=== PATIENT | male | born 1995 | race Hispanic/Latino ===

== ENCOUNTER 2022-04-25 16:26 | Emergency (ER) | payer BC, OTHER ==
--- OUTSIDE RECORDS SUMMARY | 2022-04-25 16:31 | XMS REPORT | Continuity of Care Document ---
:1995 Author Organization [facility] t Address [address] [place] [address] Care Team Providers Name Role Phone Joanie Perry MD Primary Care Physician RADHA MARQUEZ Attending Clinician Unavailable SHI ANAYA Attending Clinician Unavailable Vida Romero MD Attending Clinician Zuniga_F Attending Clinician Unavailable Rich Salgado Attending Clinician Duarte_Sundar Attending Clinician Unavailable Apolinar RN, Mallory Attending Clinician Unavailable Eloina RICHARDSON, Alfreda Klein Attending Clinician Giovany CERVANTESPAnna Attending Clinician Graeme CONTRACTS ANALYST, Micaela Santa Attending Clinician Parish Chamorro MD Attending Clinician Yoel RICHARDSON, Chloe Smith Attending Clinician SANDIE_HERNÁN_DOREEN Attending Clinician Unavailable Koudela_A Attending Clinician Unavailable Zuniga_S Attending Clinician Unavailable Rajcameron_P Attending Clinician Unavailable Zungracya_F Admitting Clinician Unavailable Duarte_Sundar Admitting Clinician Unavailable VIDA ROMERO Admitting Clinician Unavailable CHLOE DIALLO Admitting Clinician Unavailable JONA Admitting Clinician Unavailable Koudela_A Admitting Clinician Unavailable Zuniga_S Admitting Clinician Unavailable Raju_P Admitting Clinician Unavailable Payers Payer Name Policy Type Policy Number Effective Date Expiration Date S mon[place] [id number] 2014 (PPO) 00:00:00 [facility] [id number] 2019 [place] 00:00:00 [place] [id number] [place] [facility] - [id number] [facility] (INSTITUTIONAL) Problems Condition Condition Condition Status Onset Resolution Last Treating Co mments Source Name Details Category Date Date Treatment Clinician Date Spinal Spinal Disease Active [facility] stenosis stenosis 8 st of of 00:00: Hospita lumbosacra lumbosacra 00 l l region l region Left Left Disease Active Overview: Method i lumbar lumbar 8-[address] radiculiti radiculiti 00:00: g of this Hospita s s 00 note l might be different from the original. 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 Disorder Group Allergies, Adverse Reactions, Alerts Allergy Allergy Status Severity Reaction(s) Onset Inactive Treating Comm ents Source Name Type Date Date Clinician Michelle Rachel Active GI 2020-07 VOMITING Meth joanna porras ty to Intolerance 08-25 st adverse 00:00: Hospita reaction 00 l s to drug Imitrex Allergy Active [facility] Family History Family Member Diagnosis Comments Start Date Stop Date Source Natural father Doan's palsy [facility] Natural mother Fibromyalgia [facility] Social History Social Habit Start Date Stop Date Quantity Comments Source History of Cigarette Smoker [facility] tobacco use Hospital Alcohol intake 2022-03-03 2022-03-03 Current drinker [facility] 00:00:00 00:00:00 of alcohol Hospital (finding) Tobacco use and 2022-03-01 2022-03-01 Smokeless tobacco [facility] exposure 00:00:00 00:00:00 non-user Hospital Alcohol Comment 2022-03-01 2022-03-01 EVERY OTHER Method[facility] 00:00:00 00:00:00 [facility] Hospital Sex Assigned At [birth year] [facility] 00:00:00 00:00:00 Hospital Smoking Status Start Date Stop Date Source Light Tobacco Smoker [facility] Smokes tobacco daily 2022-03-01 00:00:00 [facility] Medications Ordered Filled Start Stop Current Ordering Indication Dosage Frequency Signature Comments Components Source Medication Medication Date Date Medication? Clinician (SIG) Name Name methylPREDN 2021- Yes Use as Met hodi ISolone 03-[address] (MEDROL 00:00: 04:59 by package Hos félix DOSEPAK) 4 00 :00 instructio l mg tablet ns methylPREDN 0 2021- Yes Use as Met hodi ISolone 03-[address] (MEDROL 00:00: 04:59 by package Hos félix DOSEPAK) 4 00 :00 instructio l mg tablet ns methylPREDN 2021- No Use as Met hodi ISolone 03-[address] (MEDROL 00:00: 04:59 by package Hos félix DOSEPAK) 4 00 :00 instructio l mg tablet ns budesonide- Yes 2{puff} Q.5D Inhale 2 Methodi formoteroL 8-[address] (SYMBICORT) 11:57: (two) Hospi ta 160-4.5 10 times a l mcg/actuati day. on inhaler busPIRone Yes 5mg Q.5D Take 1 Method i (BUSPAR) 5 8-23 tablet (5 st MG tablet 11:57: mg total) Hos félix 10 by mouth 2 l (two) times a day. gabapentin 0 Yes 600mg QD Take 2 Meth joanna (NEURONTIN) 8-[address] 300 mg 11:57: (600 mg Hospita capsule 10 total) by l mouth daily. hydrOXYzine 0 Yes 25mg QD Take 1 Meth joanna (ATARAX) 25 8-23 tablet (25 st MG tablet 11:57: mg total) Hos félix 10 by mouth l daily. levalbutero Yes 2{puff} Q2D Inhale 2 Methodi l (XOPENEX 8-[address] HFA) 45 11:57: every Hospita mcg/actuati 10 other day. l on inhaler budesonide- 0 Yes 2{puff} Q.5D Inhale 2 Methodi formoteroL 8-[address] (SYMBICORT) 11:57: (two) Hospi ta 160-4.5 10 times a l mcg/actuati day. on inhaler busPIRone 0 Yes 5mg Q.5D Take 1 Method i (BUSPAR) 5 8-23 tablet (5 st MG tablet 11:57: mg total) Hos félix 10 by mouth 2 l (two) times a day. gabapentin 2022-0 Yes 600mg QD Take 2 Meth joanna (NEURONTIN) 8-[address] 300 mg 11:57: (600 mg Hospita capsule 10 total) by l mouth daily. hydrOXYzine 2022-0 Yes 25mg QD Take 1 Meth joanna (ATARAX) 25 8-23 tablet (25 st MG tablet 11:57: mg total) Hos félix 10 by mouth l daily. levalbutero 2022-0 Yes 2{puff} Q2D Inhale 2 Methodi l (XOPENEX 8-[address] HFA) 45 11:57: every Hospita mcg/actuati 10 other day. l on inhaler budesonide- 2021-0 Yes 2{puff} Q.5D Inhale 2 Methodi formoteroL 8-[address] (SYMBICORT) 11:57: (two) Hospi ta 160-4.5 10 times a l mcg/actuati day. on inhaler busPIRone 2022-0 Yes 5mg Q.5D Take 1 Method i (BUSPAR) 5 8-23 tablet (5 st MG tablet 11:57: mg total) Hos félix 10 by mouth 2 l (two) times a day. gabapentin 2022-0 Yes 600mg QD Take 2 Meth joanna (NEURONTIN) 8-[address] 300 mg 11:57: (600 mg Hospita capsule 10 total) by l mouth daily. hydrOXYzine 2022-0 Yes 25mg QD Take 1 Meth joanna (ATARAX) 25 8-23 tablet (25 st MG tablet 11:57: mg total) Hos félix 10 by mouth l daily. levalbutero 2022-0 Yes 2{puff} Q2D Inhale 2 Methodi l (XOPENEX 8-[address] HFA) 45 11:57: every Hospita mcg/actuati 10 other day. l on inhaler budesonide- 2-0 Yes 2{puff} Q.5D Inhale 2 Methodi formoteroL 8-[address] (SYMBICORT) 11:57: (two) Hospi ta 160-4.5 10 times a l mcg/actuati day. on inhaler busPIRone 2022-0 Yes 5mg Q.5D Take 1 Method i (BUSPAR) 5 8-23 tablet (5 st MG tablet 11:57: mg total) Hos félix 10 by mouth 2 l (two) times a day. gabapentin 2022-0 Yes 600mg QD Take 2 Meth joanna (NEURONTIN) 8-[address] 300 mg 11:57: (600 mg Hospita capsule 10 total) by l mouth daily. hydrOXYzine 2022-0 Yes 25mg QD Take 1 Meth joanna (ATARAX) 25 8-23 tablet (25 st MG tablet 11:57: mg total) Hos félix 10 by mouth l daily. levalbutero 2022-0 Yes 2{puff} Q2D Inhale 2 Methodi l (XOPENEX 8-[address] HFA) 45 11:57: every Hospita mcg/actuati 10 other day. l on inhaler budesonide- 2021-0 Yes 2{puff} Q.5D Inhale 2 Methodi formoteroL 8-[address] (SYMBICORT) 11:57: (two) Hospi ta 160-4.5 10 times a l mcg/actuati day. on inhaler busPIRone 2022-0 Yes 5mg Q.5D Take 1 Method i (BUSPAR) 5 8-23 tablet (5 st MG tablet 11:57: mg total) Hos félix 10 by mouth 2 l (two) times a day. gabapentin 2-0 Yes 600mg QD Take 2 Meth joanna (NEURONTIN) 8-[address] 300 mg 11:57: (600 mg Hospita capsule 10 total) by l mouth daily. hydrOXYzine 2022-0 Yes 25mg QD Take 1 Meth joanna (ATARAX) 25 8-23 tablet (25 st MG tablet 11:57: mg total) Hos félix 10 by mouth l daily. levalbutero 2-0 Yes 2{puff} Q2D Inhale 2 Methodi l (XOPENEX 8-[address] HFA) 45 11:57: every Hospita mcg/actuati 10 other day. l on inhaler budesonide- 2021-0 Yes 2{puff} Q.5D Inhale 2 Methodi formoteroL 8-[address] (SYMBICORT) 11:57: (two) Hospi ta 160-4.5 10 times a l mcg/actuati day. on inhaler busPIRone 2022-0 Yes 5mg Q.5D Take 1 Method i (BUSPAR) 5 8-23 tablet (5 st MG tablet 11:57: mg total) Hos félix 10 by mouth 2 l (two) times a day. gabapentin 2-0 Yes 600mg QD Take 2 Meth joanna (NEURONTIN) 8-[address] 300 mg 11:57: (600 mg Hospita capsule 10 total) by l mouth daily. hydrOXYzine 2-0 Yes 25mg QD Take 1 Meth joanna (ATARAX) 25 8-23 tablet (25 st MG tablet 11:57: mg total) Hos félix 10 by mouth l daily. levalbutero 2021-0 Yes 2{puff} Q2D Inhale 2 Methodi l (XOPENEX 8-[address] HFA) 45 11:57: every Hospita mcg/actuati 10 other day. l on inhaler budesonide- 2021-0 Yes 2{puff} Q.5D Inhale 2 Methodi formoteroL 8-[address] (SYMBICORT) 11:57: (two) Hospi ta 160-4.5 10 times a l mcg/actuati day. on inhaler busPIRone 2021-0 Yes 5mg Q.5D Take 1 Method i (BUSPAR) 5 8-23 tablet (5 st MG tablet 11:57: mg total) Hos félix 10 by mouth 2 l (two) times a day. gabapentin 2-0 Yes 600mg QD Take 2 Meth joanna (NEURONTIN) 8-[address] 300 mg 11:57: (600 mg Hospita capsule 10 total) by l mouth daily. hydrOXYzine 2021-0 Yes 25mg QD Take 1 Meth joanna (ATARAX) 25 8-23 tablet (25 st MG tablet 11:57: mg total) Hos félix 10 by mouth l daily. levalbutero 2021-0 Yes 2{puff} Q2D Inhale 2 Methodi l (XOPENEX 8-[address] HFA) 45 11:57: every Hospita mcg/actuati 10 other day. l on inhaler acetaminoph 2021-0 2021- Yes [id number] 1{tbl} Q6H Take 1 Methodi en-codeine 03-[address] (TYLENOL 00:00: 04:59 mouth Hospita WITH 00 :00 every 6 l CODEINE #3) (six) 300-30 mg hours as per tablet needed for moderate pain for up to 10 days .acute pain. acetaminoph 2021- Yes [id number] 1{tbl} Q6H Take 1 Method[facility] en-codeine 03-[address] (TYLENOL 00:00: 04:59 mouth Hospita WITH 00 :00 every 6 l CODEINE #3) (six) 300-30 mg hours as per tablet needed for moderate pain for up to 10 days .acute pain. acetaminoph 2021- Yes [id number] 1{tbl} Q6H Take 1 Methodi en-codeine 03-[address] (TYLENOL 00:00: 04:59 mouth Hospita WITH 00 :00 every 6 l CODEINE #3) (six) 300-30 mg hours as per tablet needed for moderate pain for up to 10 days .acute pain. acetaminoph 2021- No [id number] 1{tbl} Q6H Take 1 Methodi en-codeine 03-[address] (TYLENOL 00:00: 04:59 mouth Hospita WITH 00 :00 every 6 l CODEINE #3) (six) 300-30 mg hours as per tablet needed for moderate pain for up to 10 days .acute pain. acetaminoph 2021- No [id number] 1{tbl} Q6H Take 1 Methodi en-codeine 03-[address] (TYLENOL 00:00: 04:59 mouth Hospita WITH 00 :00 every 6 l CODEINE #3) (six) 300-30 mg hours as per tablet needed for moderate pain for up to 10 days .acute pain. acetaminoph 2021- Yes [id number] 1{tbl} Q6H Take 1 Methodi en-codeine 03-[address] (TYLENOL 00:00: 04:59 mouth Hospita WITH 00 :00 every 6 l CODEINE #3) (six) 300-30 mg hours as per tablet needed for moderate pain for up to 10 days .acute pain. acetaminoph 1{tbl} Q6H Take 1 Methodi en-codeine 03-02 09-[address] (TYLENOL 00:00: 04:59 mouth Hospita WITH 00 :00 every 6 l CODEINE #3) (six) 300-30 mg hours as per tablet needed for moderate pain for up to 10 days .acute pain. traMADoL 28 50mg Q6H Take 1 Metho di (ULTRAM) 50 8-19 08-25 tablet (50 s t mg tablet 00:00: 04:59 mg total) Ho spita 00 :00 by mouth l every 6 (six) hours as needed for moderate pain for up to 5 days .acute pain. traMADoL 28 50mg Q6H Take 1 Metho di (ULTRAM) 50 8-19 08-25 tablet (50 s t mg tablet 00:00: 04:59 mg total) Ho spita 00 :00 by mouth l every 6 (six) hours as needed for moderate pain for up to 5 days .acute pain. traMADoL 28 50mg Q6H Take 1 Metho di (ULTRAM) 50 8-19 08-25 tablet (50 s t mg tablet 00:00: 04:59 mg total) Ho spita 00 :00 by mouth l every 6 (six) hours as needed for moderate pain for up to 5 days .acute pain. traMADoL 28 50mg Q6H Take 1 Metho di (ULTRAM) 50 8-19 08-25 tablet (50 s t mg tablet 00:00: 04:59 mg total) Ho spita 00 :00 by mouth l every 6 (six) hours as needed for moderate pain for up to 5 days .acute pain. traMADoL 28 50mg Q6H Take 1 Metho di (ULTRAM) 50 8-19 08-25 tablet (50 s t mg tablet 00:00: 04:59 mg total) Ho spita 00 :00 by mouth l every 6 (six) hours as needed for moderate pain for up to 5 days .acute pain. traMADoL 28 50mg Q6H Take 1 Metho di (ULTRAM) 50 8-19 08-25 tablet (50 s t mg tablet 00:00: 04:59 mg total) Ho spita 00 :00 by mouth l every 6 (six) hours as needed for moderate pain for up to 5 days .acute pain. traMADoL 2021- No [id number] 50mg Q6H Take 1 Metho di (ULTRAM) 50 8-19 08-25 tablet (50 s t mg tablet 00:00: 04:59 mg total) Ho spita 00 :00 by mouth l every 6 (six) hours as needed for moderate pain for up to 5 days .acute pain. ibuprofen 2021- No 600mg Q6H Take 1 Meth joanna (ADVIL) 600 8-18 08-[address] MG tablet 00:00: 00:00 (600 mg Hosp nithya 00 :00 total) by l mouth every 6 (six) hours as needed for moderate pain (Back pain) for up to 7 days. ibuprofen 2021- No 600mg Q6H Take 1 Meth joanna (ADVIL) 600 8-18 08-[address] MG tablet 00:00: 00:00 (600 mg Hosp nithya 00 :00 total) by l mouth every 6 (six) hours as needed for moderate pain (Back pain) for up to 7 days. ibuprofen 0 2021- No 600mg Q6H Take 1 Meth joanna (ADVIL) 600 8-18 08-[address] MG tablet 00:00: 00:00 (600 mg Hosp nithya 00 :00 total) by l mouth every 6 (six) hours as needed for moderate pain (Back pain) for up to 7 days. ibuprofen 0 2021- No 600mg Q6H Take 1 Meth joanna (ADVIL) 600 8-18 08-[address] MG tablet 00:00: 00:00 (600 mg Hosp nithya 00 :00 total) by l mouth every 6 (six) hours as needed for moderate pain (Back pain) for up to 7 days. ibuprofen 0 2021- No 600mg Q6H Take 1 Meth joanna (ADVIL) 600 8-18 08-[address] MG tablet 00:00: 00:00 (600 mg Hosp nithya 00 :00 total) by l mouth every 6 (six) hours as needed for moderate pain (Back pain) for up to 7 days. ibuprofen 2021- No 600mg Q6H Take 1 Meth joanna (ADVIL) 600 818 -[address] MG tablet 00:00: 00:00 (600 mg Hosp nithya 00 :00 total) by l mouth every 6 (six) hours as needed for moderate pain (Back pain) for up to 7 days. ibuprofen 2021- No 600mg Q6H Take 1 Meth joanna (ADVIL) 600 818 -[address] MG tablet 00:00: 00:00 (600 mg Hosp nithya 00 :00 total) by l mouth every 6 (six) hours as needed for moderate pain (Back pain) for up to 7 days. 2021- No INJECT ONE Met hodi Maintena 5-18 08-17 (1) UNIT st 400 mg 00:00: 00:00 INTO THE Hospit a suspension, 00 :00 MUSCLE l extended ONCE A rel syring MONTH 2021- No INJECT ONE Met hodi Maintena 5-18 08-17 (1) UNIT st 400 mg 00:00: 00:00 INTO THE Hospit a suspension, 00 :00 MUSCLE l extended ONCE A rel syring MONTH 2021- No INJECT ONE Met hodi Maintena 5-18 08-17 (1) UNIT st 400 mg 00:00: 00:00 INTO THE Hospit a suspension, 00 :00 MUSCLE l extended ONCE A rel syring MONTH lif2021- No INJECT ONE Met hodi Maintena 5-18 08-17 (1) UNIT st 400 mg 00:00: 00:00 INTO THE Hospit a suspension, 00 :00 MUSCLE l extended ONCE A rel syring MONTH lif2021- No INJECT ONE Met hodi Maintena 5-18 08-17 (1) UNIT st 400 mg 00:00: 00:00 INTO THE Hospit a suspension, 00 :00 MUSCLE l extended ONCE A rel syring MONTH lif2021- No INJECT ONE Met hodi Maintena 5-18 08-17 (1) UNIT st 400 mg 00:00: 00:00 INTO THE Hospit a suspension, 00 :00 MUSCLE l extended ONCE A rel syring MONTH Abilify 0 2021- No INJECT ONE [facility] 11-25 (1) UNIT st 400 mg 00:00: 00:00 INTO THE Hospit a suspension, 00 :00 MUSCLE l extended ONCE A rel syring MONTH acetaminoph acetaminoph No acetaminop [place] en 300 en 300 hen 300 da mg-codeine mg-codeine mg-codeine Medical 30 mg 30 mg 30 mg Group tablet TAKE tablet TAKE tablet 1 TABLET BY 1 TABLET BY TAKE 1 MOUTH EVERY MOUTH EVERY TABLET BY 6 (SIX) 6 (SIX) MOUTH HOURS HOURS EVERY 6 NEEDED FOR NEEDED FOR (SIX) MODERATE MODERATE HOURS PAIN FOR UP PAIN FOR UP NEEDED FOR TO 10 DAYS TO 10 DAYS MODERATE .ACUTE .ACUTE PAIN FOR PAIN. PAIN. UP TO 10 DAYS .ACUTE PAIN. buspirone 5 buspirone 5 No buspirone [facility] mg tablet mg tablet 5 mg da TAKE ONE TAKE ONE tablet Medic al (1) TABLET (1) TABLET TAKE ONE Group BY MOUTH BY MOUTH (1) TABLET TWICE A DAY TWICE A DAY BY MOUTH TWICE A DAY gabapentin gabapentin No gabapentin [facility] 300 mg 300 mg 300 mg da capsule capsule capsule Medica l TAKE 1 TAKE 1 TAKE 1 Group CAPSULE CAPSULE CAPSULE TWICE A DAY TWICE A DAY TWICE A BY ORAL BY ORAL DAY BY ROUTE FOR ROUTE FOR ORAL ROUTE 30 DAYS. 30 DAYS. FOR 30 DAYS. hydroxyzine hydroxyzine No hydroxyzin [facility] HCl 25 mg HCl 25 mg e HCl 25 d a tablet TAKE tablet TAKE mg tablet Medical ONE (1) ONE (1) TAKE ONE Group TABLET BY TABLET BY (1) TABLET MOUTH TWICE MOUTH TWICE BY MOUTH A DAY A DAY TWICE A DAY lamotrigine lamotrigine No lamotrigin [facility] 150 mg 150 mg e 150 mg da tablet TAKE tablet TAKE tablet Medical ONE (1) ONE (1) TAKE ONE Group TABLET BY TABLET BY (1) TABLET MOUTH TWICE MOUTH TWICE BY MOUTH A DAY A DAY TWICE A DAY Symbicort Symbicort No Symbicort [facility] Xopenex Xopenex No Xopenex [facility] Immunizations Ordered Immunization Filled Immunization Date Status Commen ts Source Name Name Oxitec COVID-19 MRNA 2020-10-16 Completed [facility] odist VACCINATION 00:00:00 [facility] PFIZER COVID-19 MRNA 2020-10-16 Completed Meth odist VACCINATION 00:00:00 [facility] PFIZER COVID-19 MRNA 2020-10-16 Completed Meth odist VACCINATION 00:00:00 [facility] PFIZER COVID-19 MRNA 2020-10-16 Completed Meth odist VACCINATION 00:00:00 [facility] PFIZER COVID-19 MRNA 2020-10-16 Completed Meth odist VACCINATION 00:00:00 [facility] PFIZER COVID-19 MRNA 2020-10-16 Completed Meth odist VACCINATION 00:00:00 [facility] PFIZER COVID-19 MRNA 2020-10-16 Completed Meth odist VACCINATION 00:00:00 [facility] PFIZER COVID-19 MRNA 2020-09-25 Completed Meth odist VACCINATION 00:00:00 [facility] PFIZER COVID-19 MRNA 2020-09-25 Completed Meth odist VACCINATION 00:00:00 [facility] PFIZER COVID-19 MRNA 2020-09-25 Completed Meth odist VACCINATION 00:00:00 [facility] PFIZER COVID-19 MRNA 2020-09-25 Completed Meth odist VACCINATION 00:00:00 [facility] PFIZER COVID-19 MRNA 2020-09-25 Completed Meth odist VACCINATION 00:00:00 [facility] PFIZER COVID-19 MRNA 2020-09-25 Completed Meth odist VACCINATION 00:00:00 [facility] PFIZER COVID-19 MRNA 2020-09-25 Completed Meth odist VACCINATION 00:00:00 Hospital Vital Signs Vital Name Observation Time Observation Value Comments Source BP Diastolic 2022-03-09 00:00:00 77 mm[Hg] [facility] Height 2022-03-09 00:00:00 71 [in_i] [facility] BMI (Body Mass 2022-03-09 00:00:00 35.6 kg/m2 [facility] Group BP Systolic 2022-03-09 00:00:00 122 mm[Hg] [facility] Body Weight 2022-03-09 00:00:00 4078.4 [oz_av] [facility] BP Diastolic 2021-11-06 00:00:00 83 mm[Hg] [facility] Height 2021-11-06 00:00:00 71 [in_i] [facility] BMI (Body Mass 2021-11-06 00:00:00 35 kg/m2 [facility]) Group BP Systolic 2021-11-06 00:00:00 127 mm[Hg] [facility] Body Weight 2021-11-06 00:00:00 4020 [oz_av] [facility] Height 2021-09-14 00:00:00 71 [in_i] [facility] BMI (Body Mass 2021-09-14 00:00:00 34.6 kg/m2 [facility]) Group Body Weight 2021-09-14 00:00:00 3968 [oz_av] [facility] BP Diastolic 2021-03-26 00:00:00 75 mm[Hg] [facility] Height 2021-03-26 00:00:00 71 [in_i] [facility] BMI (Body Mass 2021-03-26 00:00:00 31.1 kg/m2 [facility]) Group BP Systolic 2021-03-26 00:00:00 118 mm[Hg] [facility] Body Weight 2021-03-26 00:00:00 3569 [oz_av] [facility] BP Diastolic 2021-03-10 00:00:00 69 mm[Hg] [facility] Height 2021-03-10 00:00:00 71 [in_i] [facility] BMI (Body Mass 2021-03-10 00:00:00 30.8 kg/m2 [facility]) Group BP Systolic 2021-03-10 00:00:00 111 mm[Hg] [facility] Body Weight 2021-03-10 00:00:00 3529 [oz_av] [facility] BP Diastolic 2021-01-02 00:00:00 63 mm[Hg] [facility] Height 2021-01-02 00:00:00 71 [in_i] [facility] BMI (Body Mass 2021-01-02 00:00:00 30.3 kg/m2 [facility]) Group BP Systolic 2021-01-02 00:00:00 112 mm[Hg] [facility] Body Weight 2021-01-02 00:00:00 3481 [oz_av] [facility] BP Diastolic 2020-07-15 00:00:00 71 mm[Hg] [facility] Height 2020-07-15 00:00:00 71 [in_i] [facility] BMI (Body Mass 2020-07-15 00:00:00 29.7 kg/m2 [facility]) Group BP Systolic 2020-07-15 00:00:00 117 mm[Hg] [facility] Body Weight 2020-07-15 00:00:00 213 [lb_av] [facility] BP Diastolic 2020-07-14 00:00:00 71 mm[Hg] [facility] Height 2020-07-14 00:00:00 71 [in_i] [facility] BMI (Body Mass 2020-07-14 00:00:00 29.7 kg/m2 [facility]) Group BP Systolic 2020-07-14 00:00:00 117 mm[Hg] [facility] Body Weight 2020-07-14 00:00:00 3411 [oz_av] [facility] Height 2020-01-30 00:00:00 71 [in_i] [facility] BMI (Body Mass 2020-01-30 00:00:00 30 kg/m2 [facility]) Group Body Weight 2020-01-30 00:00:00 3440 [oz_av] [facility] Systolic blood 2022-03-02 15:38:00 114 mm[Hg] [facility] pressure Diastolic blood 2022-03-02 15:38:00 67 mm[Hg] [facility] pressure Heart rate 2022-03-02 15:38:00 63 /min [facility] Respiratory rate 2022-03-02 15:38:00 16 /min [facility] Oxygen saturation in 2022-03-02 15:38:00 97 /min [facility] Arterial blood by Pulse oximetry Body temperature 2022-03-02 15:30:00 36.33 Elle [facility] Body height 2022-03-01 15:26:00 180.3 cm [facility] Body weight 2022-03-01 15:26:00 115.123 kg [facility] BMI 2022-03-01 15:26:00 35.40 kg/m2 [facility] Procedures Procedure Date / Time Performing Clinician Source Performed US, duplex, penis, 2022-03-09 00:00:00 [facility] complete Group OR [place] < 1 HOUR 2022-03-02 18:31:17 Vida Romero [facility]ital 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 ENDOTRACHEAL AIRWAY LAMINECTOMY, LUMBAR 2022-03-02 12:29:00 Vida Romero [facility] POC GLUCOSE 2022-03-02 11:43:00 Vida Romero ospital Back Surgery 2022-03-02 00:00:00 [facility] dical [facility] XR CHEST 2 VW 2022-03-01 17[facility]28[facility] 2022-03-01 16:38[facility]EM[facility] A1C 2022-03-01 16:18:00 [facility] 2022-03-01 15:48[facility]00 [facility] COMPLETE BLD COUNT 2022-03-01 15:48:00 Vida Romero [facility] W/AUTO DIFF PARTIAL THROMBOPLASTIN 2022-03-01 15:48:00 Vida Romero [facility] TIME (PTT) PROTHROMBIN TIME WITH INR 2022-03-01 15:48:00 Vida Roemro [facility] CT POST MYELOGRAM LUMBAR 2022-02-25 18:14:57 Marifer [facility] IR MYELOGRAM LUMB INCL 2022-02-25 17:55:00 Klausvirtua voorhees, [facility] INJ W S&I COVID-19 QUALITATIVE 2022-02-24 22:40:00 [facility] RT-PCR COMPREHENSIVE METABOLIC 2022-02-24 22:40:00 [facility] PANEL HC COMPLETE BLD COUNT 2022-02-24 22:40:00 [facility] W/AUTO DIFF TROPONIN T 2022-02-24 22:40:00 [facility] B NATRIURETIC PEPTIDE 2022-02-24 22:40:[address] [facility] ESTIMATED GFR 2022-02-24 22:40:00 [facility] GENERAL 2022-02-24 22:27:14 [facility] CT SPINE EXTERNAL STUDY 2022-02-12 16:40:33 Vida Romero [facility] XR ABDOMEN 2 VW AP W 2021-12-18 16:48:33 Vida Romero [facility] UPRIGHT AND/OR DECUBITUS XR LUMBAR SPINE COMPLETE 2021-12-18 15:33:23 Vida Romero [facility] W BENDING XR SPINE EXTERNAL STUDY 2021-08-10 17:26:30 Vida Romero [facility] XR, lumbar spine 2021-03-10 00:00:00 Myla Vallejo Plan of Care Planned Activity Planned Date Details Comments Source Future Scheduled 2022-04-23 Pneumococcal Vaccine: [facility] Test 15:05:55 Pediatrics (0 to 5 Years) and At-Risk Patients (6 to 64 Years) (1 - PCV) [code = Pneumococcal Vaccine: Pediatrics (0 to 5 Years) and At-Risk Patients (6 to 64 Years) (1 - PCV)] Future Scheduled 2022-04-23 Hepatitis C screening [facility] Test 15:05:55 (procedure) [code = 957178427] Future Scheduled 2022-04-23 COVID-19 VACCINE (3 - [facility] Test 15:05:55 Booster for Pfizer series) [code = COVID-19 VACCINE (3 - Booster for Pfizer series)] Future Scheduled 2022-04-23 INFLUENZA VACCINE Method [facility] Test 15:05:55 [code = INFLUENZA VACCINE] Future Scheduled 2022-03-19 Pneumococcal Vaccine: [facility] Test 14:05:17 Pediatrics (0 to 5 Years) and At-Risk Patients (6 to 64 Years) (1 - PCV) [code = Pneumococcal Vaccine: Pediatrics (0 to 5 Years) and At-Risk Patients (6 to 64 Years) (1 - PCV)] Future Scheduled 2022-03-19 Hepatitis C screening [facility] Test 14:05:17 (procedure) [code = 151772519] Future Scheduled 2022-03-19 COVID-19 VACCINE (3 - [facility] Test 14:05:17 Booster for Pfizer series) [code = COVID-19 VACCINE (3 - Booster for Pfizer series)] Future Scheduled 2022-03-19 INFLUENZA VACCINE Method [facility] Test 14:05:17 [code = INFLUENZA VACCINE] Future Scheduled 2022-03-19 Pneumococcal Vaccine: [facility] Test 14:05:17 Pediatrics (0 to 5 Years) and At-Risk Patients (6 to 64 Years) (1 - PCV) [code = Pneumococcal Vaccine: Pediatrics (0 to 5 Years) and At-Risk Patients (6 to 64 Years) (1 - PCV)] Future Scheduled 2022-03-19 Hepatitis C screening [facility] Test 14:05:17 (procedure) [code = [id number]] Future Scheduled 2022-03-19 COVID-19 VACCINE (3 - [facility] Test 14:05:17 Booster for Pfizer series) [code = COVID-19 VACCINE (3 - Booster for Pfizer series)] Future Scheduled 2022-03-19 INFLUENZA VACCINE Method [facility] Test 14:05:17 [code = INFLUENZA VACCINE] Future Scheduled 2022-03-06 Pneumococcal Vaccine: [facility] Test 19:05:17 Pediatrics (0 to 5 Years) and At-Risk Patients (6 to 64 Years) (1 - PCV) [code = Pneumococcal Vaccine: Pediatrics (0 to 5 Years) and At-Risk Patients (6 to 64 Years) (1 - PCV)] Future Scheduled 2022-03-06 Hepatitis C screening [facility] Test 19:05:17 (procedure) [code = [id number]] Future Scheduled 2022-03-06 COVID-19 VACCINE (3 - [facility] Test 19:05:17 Booster for Pfizer series) [code = COVID-19 VACCINE (3 - Booster for Pfizer series)] Future Scheduled 2022-03-06 INFLUENZA VACCINE Method [facility] Test 19:05:17 [code = INFLUENZA VACCINE] Future Scheduled 2022-03-06 Pneumococcal Vaccine: [facility] Test 19:05:17 Pediatrics (0 to 5 Years) and At-Risk Patients (6 to 64 Years) (1 - PCV) [code = Pneumococcal Vaccine: Pediatrics (0 to 5 Years) and At-Risk Patients (6 to 64 Years) (1 - PCV)] Future Scheduled 2022-03-06 Hepatitis C screening [facility] Test 19:05:17 (procedure) [code = [id number]] Future Scheduled 2022-03-06 COVID-19 VACCINE (3 - [facility] Test 19:05:17 Booster for Pfizer series) [code = COVID-19 VACCINE (3 - Booster for Pfizer series)] Future Scheduled 2022-03-06 INFLUENZA VACCINE Method [facility] Test 19:05:17 [code = INFLUENZA VACCINE] Future Scheduled 2022-03-06 Pneumococcal Vaccine: [facility] Test 19:05:17 Pediatrics (0 to 5 Years) and At-Risk Patients (6 to 64 Years) (1 - PCV) [code = Pneumococcal Vaccine: Pediatrics (0 to 5 Years) and At-Risk Patients (6 to 64 Years) (1 - PCV)] Future Scheduled 2022-03-06 Hepatitis C screening [facility] Test 19:05:17 (procedure) [code = [id number]] Future Scheduled 2022-03-06 COVID-19 VACCINE (3 - [facility] Test 19:05:17 Booster for Pfizer series) [code = COVID-19 VACCINE (3 - Booster for Pfizer series)] Future Scheduled 2022-03-06 INFLUENZA VACCINE Method [facility] Test 19:05:17 [code = INFLUENZA VACCINE] Future Scheduled 2022-03-06 Pneumococcal Vaccine: [facility] Test 19:05:17 Pediatrics (0 to 5 Years) and At-Risk Patients (6 to 64 Years) (1 - PCV) [code = Pneumococcal Vaccine: Pediatrics (0 to 5 Years) and At-Risk Patients (6 to 64 Years) (1 - PCV)] Future Scheduled 2022-03-06 Hepatitis C screening [facility] Test 19:05:17 (procedure) [code = [id number]] Future Scheduled 2022-03-06 COVID-19 VACCINE (3 - Me [facility] Test 19:05:17 Booster for Pfizer series) [code = COVID-19 VACCINE (3 - Booster for Pfizer series)] Future Scheduled 2022-03-06 INFLUENZA VACCINE Method [facility] Test 19:05:17 [code = INFLUENZA VACCINE] Encounters Start End Encounter Admission Attending Care Care Encounter Source Date/Time Date/Time Type Type Clinicians Facility Department ID 2022-03-23 Inpatient TEXANA [facility] [id number] [facility]:21:[facility] [id number] Morgan 2022-04-25 2022-04-25 Emergency ER MARQUEZ, [facility] [id number] [place] 14:10:00 14:43:00 RADHA [id number] Critical access hospital 2022-04-21 2022-04-21 Emergency ER JACLYN [facility] [id number] [place] 08:47:00 10:02:00 SHI [id number] Critical access hospital 2022-04-19 2022-04-19 Office Nick, 1.2.840.1 [id number] Methodi 10:20:00 11:30:20 Visit Vida Sánchez 80717.1.1 837 s t 3.430.2.7 Hospit a .3.540582 l .8 2022-04-19 2022-04-19 [facility] [id number] [place] 00:00:00 00:00:00 VIDA [address] 2022-04-19 2022-04-19 Travel 1.2.840.1 1.2.689.556 0268 [id number] Methodi 00:00:00 00:00:[address] 3.430.2.7 0.2.7.3.698 Ho spita .3.400317 084.8 l .8 2022-04-16 2022-04-16 Emergency ER MARQUEZ [facility] [id number] [place] 08:42:00 11:50:00 SHABAZ [id number] Critical access hospital 2022-04-01 2022-04-01 Outpatient Bonita MMG MMG [id number] [place] 00:00:00 00:00:00 921 Medical Group 2022-04-01 2022-04-01 Orders Dejha, 1.2.840.1 [id number] 2099 [id number] Methodi 00:00:00 00:00:00 Only Rich 17933.1.[address] 3.430.2.7 Hospit a .3.660016 l .8 2022-03-19 2022-03-19 Office Dejah, 1.2.840.1 [id number] 2099 [id number] Methodi 14:20:00 14:33:59 Visit Rich 57507.1.[address] 3.430.2.7 Hospit a .3.956007 l .8 2022-03-19 2022-03-19 Office Dejah, 1.2.840.1 [id number] Methodi 14:20:00 14:33:59 Visit Rich 43544.1.[address] 3.430.2.7 Hospit a .3.041005 l .8 2022-03-19 2022-03-19 Travel 1.2.840.1 1.2.159.942 7797 920167 Methodi 00:00:00 00:00:[address] 3.430.2.7 0.2.7.3.698 Ho spita .3.625326 084.8 l .8 2022-03-19 2022-03-19 Travel 1.2.840.1 1.2.008.986 8728 663224 Methodi 00:00:00 00:00:[address] 3.430.2.7 0.2.7.3.698 Ho spita .3.590876 084.8 l .8 2022-03-09 2022-03-09 Outpatient Duarte_Sundar MMG MMG [id number] -2021 [place] 00:00:00 00:00:00 0830 da Medical Group 2022-03-09 2022-03-09 Kia MMG [place] - [id number] M atagor 00:00:00 00:00:00 Discovery perry Simpson PA-C: [address] [facility] [address], [facility], [place] [address] , Ph. 2022-03-03 2022-03-03 Telephone [facility], 1.2.840.1 [id number] 2099 [id number] Methodi 00:00:00 00:00:[address] 3.430.2.7 Hospit a .3.698060 l .8 2022-03-03 2022-03-03 Telephone [facility], 1.2.840.1 [id number] 2099 [id number] Methodi 00:00:00 00:00:[address] 3.430.2.7 Hospit a .3.856160 l .8 2022-03-02 2022-03-02 [place] [address].2.840.1 [id number] 62439 Methodi 05:56:00 11:56:00 Encounter Vida Sánchez 13726.1.[address] 3.430.2.7 Hospit a .3.350223 l .8 2022-03-02 2022-03-02 Anesthesia Alfreda Duvall A. 1.2.840.1 10 [id number] Methodi 07:29:00 09:55:00 Event Anna Adair 47075.1.[address] 3.430.2.7 Hospit a .3.088553 l .8 2022-03-02 2022-03-02 Anesthesia Alfreda Duvall 1.2.840.1 10 [id number] Methodi 07:29:00 09:55:00 Event Anna Adair 15098.1.[address] 3.430.2.7 Hospit a .3.329174 l .8 2022-03-02 2022-03-02 [facility], 1.2.840.1 [id number] 3062 Methodi 07:30:00 09:50:00 Vida LynchJuan José 09642.1.1 735 s t 3.430.2.7 Hospit a .3.395693 l .8 2022-03-02 2022-03-02 [facility], 1.2.840.1 [id number] Methodi 07:30:00 09:50:00 Vida LynchJuan José 92021.1.1 735 s t 3.430.2.7 Hospit a .3.086598 l .8 2022-03-02 2022-03-02 [facility] [id number] [place] [address] 00:00:00 00:00:00 Encounter VIDA Sharan2 Meth joanna [address] 2022-03-02 2022-03-02 Telephone Dejah, 1.2.840.1 [id number] Methodi 00:00:00 00:00:[address] 3.430.2.7 Hospit a .3.162257 l .8 2022-03-02 2022-03-02 Telephone Dejah, 1.2.840.1 [id number] 21 [id number] Methodi 00:00:00 00:00:[address] 3.430.2.7 Hospit a .3.024859 l .8 2022-03-01 2022-03-01 [facility], 1.2.840.1 [id number] 54018 Methodi 12:18:26 23:59:00 Encounter Vida Sánchez 62610.1.[address] 3.430.2.7 Hospit a .3.328540 l .8 2022-03-01 2022-03-01 Pre-Admiss [place], 1.2.840.1 [id number] 384 [id number] Methodi 09:30:00 10:30:00 ion Vida Sánchez 61023.1.1 034 s t Testing 3.430.2.7 Hospit a .3.833675 l .8 2022-03-01 2022-03-01 Pre-Admiss [place], 1.2.840.1 [id number] 742 [id number] Methodi 09:30:00 10:30:00 doris Sánchez 62715.1.1 034 s t Testing 3.430.2.7 Hospit a .3.537732 l .8 2022-03-01 2022-03-01 [facility], 1.2.840.1 [id number] 02721 [place] 00:00:00 00:00:00 Encounter VIDA 71504.1.1 [address] .3.373695 .8 2022-03-01 2022-03-01 Telephone Graeme, 1.2.840.1 [id number] Methodi 00:00:00 00:00:[address] 3.430.2.7 Hospit a .3.260002 l .8 2022-03-01 2022-03-01 Travel 1.2.840.1 1.2.290.737 4780 349197 Methodi 00:00:00 00:00:[address] 3.430.2.7 0.2.7.3.698 Ho spita .3.198902 084.8 l .8 2022-03-01 2022-03-01 Telephone [place], 1.2.840.1 [id number] Methodi 00:00:00 00:00:[address] 3.430.2.7 Hospit a .3.267696 l .8 2022-03-01 2022-03-01 Travel 1.2.840.1 1.2.952.344 2305 282261 Methodi 00:00:00 00:00:[address] 3.430.2.7 0.2.7.3.698 Ho spita .3.288066 084.8 l .8 2022-02-26 2022-02-26 Telephone Nick, 1.2.840.1 [id number] 2099 025604 Methodi 00:00:00 00:00:00 Vida Cris. 37773.1.1 279 s t 3.430.2.7 Hospit a .3.488112 l .8 2022-02-26 2022-02-26 Travel 1.2.840.1 1.2.179.266 5063 276877 Methodi 00:00:00 00:00:[address] 3.430.2.7 0.2.7.3.698 Ho spita .3.951460 084.8 l .8 2022-02-26 2022-02-26 Telephone Nick, 1.2.840.1 [id number] Methodi 00:00:00 00:00:00 Vida Sánchez 75556.1.1 279 s t 3.430.2.7 Hospit a .3.875187 l .8 2022-02-26 2022-02-26 Travel 1.2.840.1 1.2.290.114 9101 708397 Methodi 00:00:00 00:00:[address] 3.430.2.7 0.2.7.3.698 Ho spita .3.465997 084.8 l .8 2022-02-24 2022-02-25 [facility] 1.2.840.1 1041 31286 [id number] Methodi 15:25:00 19:45:00 Chloe Diallo 70452.1.[address] 3.430.2.7 Hospit a .3.703512 l .8 2022-02-25 2022-02-25 Transcribe Nick 1.2.840.1 [id number] 946 [id number] Methodi 00:00:00 00:00:00 Orders Vida CrisJuan José 43273.1.1 241 s t 3.430.2.7 Hospit a .3.753112 l .8 2022-02-25 2022-02-25 Orders Dejah, 1.2.840.1 [id number] 2099 [id number] Methodi 00:00:00 00:00:00 Only Rich 63561.1.[address] 3.430.2.7 Hospit a .3.640236 l .8 2022-02-25 2022-02-25 Transcribe [place], 1.2.840.1 [id number] 404 [id number] Methodi 00:00:00 00:00:00 Orders Vida Sánchez 87599.1.1 241 s t 3.430.2.7 Hospit a .3.448340 l .8 2022-02-25 2022-02-25 Orders Dejah, 1.2.840.1 [id number] 2099 [id number] Methodi 00:00:00 00:00:00 Only Rich 94836.1.[address] 3.430.2.7 Hospit a .3.011579 l .8 2022-02-24 2022-02-25 Emergency CHLOE DIALLO 1.2.840.1 [id number] [place] 00:00:00 00:00:00 61645[address]1.[address] .3.512155 .8 2022-02-24 2022-02-24 [facility], 1.2.840.1 [id number] 08059 Methodi 18:39:58 23:59:00 Encounter Vida Sánchez 43141.1.[address] 3.430.2.7 Hospit a .3.179468 l .8 2022-02-24 2022-02-24 [facility], 1.2.840.1 [id number] Methodi 18:39:26 23:59:00 Encounter Vida Sánchez 58479.1.[address] 3.430.2.7 Hospit a .3.881546 l .8 2022-02-24 2022-02-24 [facility], 1.2.840.1 [id number] [place] 00:00:00 00:00:00 Encounter VIDA 49335.1.1 [address] .3.429597 .8 2022-02-24 2022-02-24 [facility], 1.2.840.1 [id number] 21436 [place] 00:00:00 00:00:00 Encounter VIDA 75648.1.[address] .3.870221 .8 2022-02-24 2022-02-24 [facility] Nick, 1.2.840.1 [id number] 7268 Methodi 00:00:00 00:00:00 Only Vida Sánchez 83589.1.1 790 s t 3.430.2.7 Hospit a .3.545713 l .8 2022-02-24 2022-02-24 Travel 1.2.840.1 1.2.876.010 8209 049547 Methodi 00:00:00 00:00:[address] 3.430.2.7 0.2.7.3.698 Ho spita .3.611300 084.8 l .8 2022-02-24 2022-02-24 [facility], 1.2.840.1 [id number] 3839 Methodi 00:00:00 00:00:00 Only Vida Sánchez 07594.1.1 790 s t 3.430.2.7 Hospit a .3.723505 l .8 2022-02-24 2022-02-24 Travel 1.2.840.1 1.2.949.043 2144 672057 Methodi 00:00:00 00:00:[address] 3.430.2.7 0.2.7.3.698 Ho spita .3.488350 084.8 l .8 2022-01-26 2022-01-26 Outpatient ANDREIA ANTONIO PRCRYSTAL 909 [place] 12:18:00 12:18:00 _DOREEN 0719 da [facility] Program 2021-12-18 2021-12-18 [facility] Nick, 1.2.840.1 [id number] 9771 Methodi 10:20:00 11:32:26 Visit Vida Sánchez 34315.1.1 071 s t 3.430.2.7 Hospit a .3.352658 l .8 2021-12-18 2021-12-18 Office Nick 1.2.840.1 [id number] 8850 Methodi 10:20:00 11:32:26 Visit Vida Sánchez 04654.1.1 071 s t 3.430.2.7 Hospit a .3.558062 l .8 2021-12-18 2021-12-18 Outpatient [facility] [id number] [place] 00:00:00 00:00:00 VIDA [address] 2021-12-18 2021-12-18 Travel 1.2.840.1 1.2.475.513 4727 459460 Methodi 00:00:00 00:00:[address] 3.430.2.7 0.2.7.3.698 Ho spita .3.539978 084.8 l .8 2021-12-18 2021-12-18 Outpatient [facility] [id number] [place] 00:00:00 00:00:00 VIDA [address] 2021-12-18 2021-12-18 Travel 1.2.840.1 1.2.398.664 3425 309439 Methodi 00:00:00 00:00:[address] 3.430.2.7 0.2.7.3.698 Ho spita .3.391213 084.8 l .8 2021-11-06 2021-11-06 Outpatient Hawkins_M [facility] [id number] [place] 12:33:00 12:33:00 0502 Medical Group 2021-11-06 2021-11-06 [facility] [id number] -2021 [place] 00:00:00 00:00:00 0429 Medical Group 2021-11-06 2021-11-06 Susan [facility] [place] - [id number] M atagor 00:00:00 00:00:00 Aracelis Hunter Medical CONTRACTS ANALYST: [address] [address] , Ph. 2021-11-05 2021-11-05 Outpatient Hawkins_M [facility] [id number] [place] 04:51:00 04:51:00 0428 da Medical Group 2021-09-14 2021-09-14 Outpatient [facility] [id number] [place] 12:39:00 12:39:00 0307 Medical Group 2021-09-14 2021-09-14 Kia [facility] [place] - [id number] M atagor 00:00:00 00:00:00 Discovery perry Simpson PA-C: [address] [address] , Ph. 2021-09-14 2021-09-14 Travel 1.2.840.1 1.2.336.335 0332 [id number] Methodi 00:00:00 00:00:[address] 3.430.2.7 0.2.7.3.698 Ho spita .3.561711 084.8 l .8 2021-09-14 2021-09-14 Travel 1.2.840.1 1.2.226.994 8877 099943 Methodi 00:00:00 00:00:[address] 3.430.2.7 0.2.7.3.698 Ho spita .3.971122 084.8 l .8 2021-08-10 2021-08-10 Outpatient [facility] [id number] -2021 [place] 11:36:00 11:36:00 0131 da Medical Group 2021-08-10 2021-08-10 Outpatient [facility] [id number] [place] 11:36:00 11:36:00 0211 da Medical Group 2021-05-04 2021-05-04 Outpatient Zuniga_F [facility]G [facility] [id number]- 2020 [place] 10:22:00 10:22:00 1220 da Medical Group 2021-03-26 2021-03-26 Outpatient Zuniga_F MMG [facility] [id number]- 2020 [place] 10:53:00 10:53:00 0916 Medical Group 2021-03-26 2021-03-26 Joanie [facility] [place] - [id number] [place] 00:00:00 00:00:00 Micky Lozano Medical Medical MD: [address] [address], [place] [address] , Ph. 2021-03-10 2021-03-10 Outpatient Zuniga_F MMG [facility] [id number]- 2020 [place] 04:23:00 04:23:00 0831 Medical Group 2021-03-10 2021-03-10 Joanie [facility] [place] - [id number] [place] 00:00:00 00:00:00 Aracelis Klein Medical MD: [address] [place] [address], [place] [address] , Ph. 2021-02-18 2021-02-18 Outpatient Zuniga_F MMG [facility] [id number] 2020 [place] 10:58:00 10:58:00 0811 Medical Group 2021-02-13 2021-02-13 Outpatient Zuniga_S MMG [facility] [id number]- 2020 [place] 11:36:00 11:36:00 0806 da Medical Group 2021-02-11 2021-02-11 Outpatient Zuniga_S MMG [facility] [id number]- 2020 [place] 04:11:00 04:11:00 0804 da Medical Group 2021-01-02 2021-01-02 Outpatient Zuniga_S MMG [facility] [id number]- 2020 [place] 11:03:00 11:03:00 0625 Medical Group 2021-01-02 2021-01-02 [place] [id number]- 2020 [place] 11:03:00 11:03:00 0626 da Medical Group 2021-01-02 2021-01-02 Radha MM [place] - [id number] [place] 00:00:00 00:00:00 Discovery perry Perry SPECIAL ED ASSISTANT-C: [address] [facility] [address] , Ph. 2020-07-15 2020-07-15 [place] [id number]- 2020 [place] 12:50:00 12:50:00 0105 Medical Group 2020-07-15 2020-07-15 [place] [id number]- 2020 [place] 12:50:00 12:50:00 0111 Medical Group 2020-07-15 2020-07-15 Tyson MM [place] - [id number] M atagor 00:00:00 00:00:00 Discovery perry Munoz MD: [address] [place] [address] [address] [address] , Ph. 2020-07-14 2020-07-14 [place] [id number]- 2020 [place] 04:30:00 04:30:00 0104 Medical Group 2020-07-14 2020-07-14 Joanie [facility] [place] - [id number] [place] 00:00:00 00:00:00 Aracelis Klein MD: [address] [place] [address] , Ph. 2020-07-10 2020-07-10 Outpatient Zuniga_F MMG MM [id number] [place] 10:29:00 10:29:00 1231 perry Medical Group 2020-02-26 2020-02-26 Outpatient Zuniga_F MMG MM [id number] [place] 12:39:00 12:39:00 1229 da Medical Group 2020-02-26 2020-02-26 Outpatient Zuniga_F MMG MMG [id number] [place] 12:39:00 12:39:00 1230 da Medical Group 2020-01-30 2020-01-30 Outpatient Zuniga_F MMG MMG [id number] [place] 08:08:00 08:08:00 0722 [facility] 2020-01-30 2020-01-30 Joanie [facility] [place] - [id number] [place] 00:00:00 00:00:00 [facility] MD: [address] [place] [address] [address], [place] [address] , Ph. 2020-01-29 2020-01-29 Outpatient Raju_P [facility] MMG [id number] [place] 04:40:00 04:40:00 0721 [facility] 2019-11-06 2019-11-06 Outpatient Raju_P MMG MMG [id number] [place] 03:29:00 03:29:00 0428 [facility] 2019-11-06 2019-11-06 Outpatient Raju_P MMG MMG [id number] [place] 03:29:00 03:29:00 0429 [facility] Results Test Description Test Time Test Comments Results Result Comments Source POC glucose 2022-03-02 11:47:00 Test Item Value Reference Range Interpretation Comme nts POC glucose (test code = 103 mg/dL 65-99 H Ope rator Name: Esmail Quratulain [id number]) FDevice ID: [id number]: RN Notified Lab Interpretation (test code = Abnormal 30781-2) [facility] [id number] 11:47:00 Test Item Value Reference Range Interpretation Comments POC glucose (test code = 103 mg/dL 65-99 H Ope rator Name: [id number]) Esmail Quratula in [facility] ID: [id number] able: RN Notified Lab Interpretation (test Abnormal code = 82244-1) [facility]2022-08-23 11:47:00 Test Item Value Reference Range Interpretation Comments POC glucose (test code = 103 mg/dL 65-99 H Ope rator Name: [id number]) Esmail Quratula in [facility] ID: [id number] able: RN Notified Lab Interpretation (test Abnormal code = 94464-9) [facility]2022-08-23 11:47:00 Test Item Value Reference Range Interpretation Comments POC glucose (test code = 103 mg/dL 65-99 H Ope rator Name: [id number]) Esmail Quratula in [facility] ID: [id number] able: RN Notified Lab Interpretation (test Abnormal code = 69442-2) [facility]2022-08-23 11:47:00 Test Item Value Reference Range Interpretation Comments POC glucose (test code = 103 mg/dL 65-99 H Ope rator Name: [id number]) Esmail Quratula in [facility] ID: [id number] able: RN Notified Lab Interpretation (test Abnormal code = 74156-1) [facility]2022-08-23 11:47:00 Test Item Value Reference Range Interpretation Comments POC glucose (test code = 103 mg/dL 65-99 H Ope rator Name: [id number]) Esmail Quratula in [facility] ID: [id number] able: RN Notified Lab Interpretation (test Abnormal code = 76839-8) [facility]2022-08-23 11:47:00 Test Item Value Reference Range Interpretation Comments POC glucose (test code = 103 mg/dL 65-99 H Ope rator Name: [id number]) Esmail Quratula in [facility] ID: [id number] able: RN Notified Lab Interpretation (test Abnormal code = 24078-2) [facility] Pre/Post [id number] 20:29:23 Test Item Value Reference Range Interpretation Comments Ventricular rate (test code = 253) Atrial rate (test code = 255) VA interval (test code = 266) QRSD interval (test code = 260) QT interval (test code = 264) QTC interval (test code = 265) P axis 1 (test code = 267) QRS axis 1 (test code = 268) T wave axis (test code = 270) EKG impression (test Normal sinus code = 273) rhythm-Normal ECG-No previous ECGs available-Electronica lly Signed By Ashok Emery MD ([id number]) on 03/01/2022 3:29:[address] [facility] Pre/Post [id number] 20:29:23 Test Item Value Reference Range Interpretation Comments Ventricular rate (test code = 253) Atrial rate (test code = 255) VA interval (test code = 266) QRSD interval (test code = 260) QT interval (test code = 264) QTC interval (test code = 265) P axis 1 (test code = 267) QRS axis 1 (test code = 268) T wave axis (test code = 270) EKG impression (test Normal sinus code = 273) rhythm-Normal ECG-No previous ECGs available-Electronic lly Signed By Ashok Emery MD ([id number]) on 03/01/2022 3:29:[address] [facility] Pre/Post [id number] 20:29:23 Test Item Value Reference Range Interpretation Comments Ventricular rate (test code = 253) Atrial rate (test code = 255) VA interval (test code = 266) QRSD interval (test code = 260) QT interval (test code = 264) QTC interval (test code = 265) P axis 1 (test code = 267) QRS axis 1 (test code = 268) T wave axis (test code = 270) EKG impression (test Normal sinus code = 273) rhythm-Normal ECG-No previous ECGs available-Electronica lly Signed By Ashok Emery MD ([id number]) on 03/01/2022 3:29:[address] [facility] Pre/Post [id number] 20:29:23 Test Item Value Reference Range Interpretation Comments Ventricular rate (test code = 253) Atrial rate (test code = 255) VA interval (test code = 266) QRSD interval (test code = 260) QT interval (test code = 264) QTC interval (test code = 265) P axis 1 (test code = 267) QRS axis 1 (test code = 268) T wave axis (test code = 270) EKG impression (test Normal sinus code = 273) rhythm-Normal ECG-No previous ECGs available-Electronica lly Signed By Ashok Emery MD ([id number]) on 03/01/2022 3:29:[address] [facility] Pre/Post [id number] 20:29:23 Test Item Value Reference Range Interpretation Comments Ventricular rate (test code = 253) Atrial rate (test code = 255) VA interval (test code = 266) QRSD interval (test code = 260) QT interval (test code = 264) QTC interval (test code = 265) P axis 1 (test code = 267) QRS axis 1 (test code = 268) T wave axis (test code = 270) EKG impression (test Normal sinus code = 273) rhythm-Normal ECG-No previous ECGs available-Electronica lly Signed By Ashok Emery MD ([id number]) on 03/01/2022 3:29:[address] [facility] Pre/Post [id number] 20:29:23 Test Item Value Reference Range Interpretation Comments Ventricular rate (test code = 253) Atrial rate (test code = 255) VA interval (test code = 266) QRSD interval (test code = 260) QT interval (test code = 264) QTC interval (test code = 265) P axis 1 (test code = 267) QRS axis 1 (test code = 268) T wave axis (test code = 270) EKG impression (test Normal sinus code = 273) rhythm-Normal ECG-No previous ECGs available-Electronica lly Signed By Ashok Emery MD ([id number]) on 03/01/2022 3:29:[address] [facility] Pre/Post [id number] 20:29:23 Test Item Value Reference Range Interpretation Comments Ventricular rate (test code = 253) Atrial rate (test code = 255) VA interval (test code = 266) QRSD interval (test code = 260) QT interval (test code = 264) QTC interval (test code = 265) P axis 1 (test code = 267) QRS axis 1 (test code = 268) T wave axis (test code = 270) EKG impression (test Normal sinus code = 273) rhythm-Normal ECG-No previous ECGs available-Electronica lly Signed By Ashok Emery MD ([id number]) on 03/01/2022 3:29:18 PM [facility] [id number] (COVID-19) RNA [Presence] in Respiratory specimen by TENZIN with probe [id number] 18:27:20 Test Item Value Reference Range Interpretation Comments SARS-CoV-2 (COVID-19) RNA Not detected [Presence] in Respiratory specimen by TENZIN with probe detection (test code = 71031-9) Whether patient is employed in a Unknown healthcare setting (test code = 48734-5) Whether the patient has symptoms Unknown related to condition of interest (test code = 37246-7) Whether the patient was Unknown hospitalized for condition of interest (test code = 69119-9) Whether the patient was admitted Unknown to intensive care unit (ICU) for condition of interest (test code = 39658-8) Whether patient resides in a Unknown congregate care setting (test code = 90282-3) status (test code = Unknown 39743-9) Date and time of symptom onset Unknown (test code = 55032-4) SARS-CoV-2 (COVID-19) RNA [Presence] in Respiratory specimen by TENZIN with probe [id number] 01:00:31 Test Item Value Reference Range Interpretation Comments SARS-CoV-2 (COVID-19) RNA Not detected [Presence] in Respiratory specimen by TENZIN with probe detection (test code = 96160-8) Whether patient is employed in a Unknown healthcare setting (test code = 67037-0) Whether the patient has symptoms Unknown related to condition of interest (test code = 61764-9) Whether the patient was Unknown hospitalized for condition of interest (test code = 30650-3) Whether the patient was admitted Unknown to intensive care unit (ICU) for condition of interest (test code = 37972-6) Whether patient resides in a Unknown congregate care setting (test code = 56451-6) status (test code = Unknown 69041-2) Date and time of symptom onset Unknown (test code = 09824-0) rapid influenza virus A + B and SARS CoV + SARS CoV 2 Ag panel, [place], upper respiratory [id number] 10:40:00 Test Item Value Reference Range Interpretation Comments RAPID SARS COV (test code = RAPID negative SARS COV) RAPID FLU A (test code = RAPID FLU negative A) RAPID FLU B (test code = RAPID FLU negative B) [facility] - [facility] or [id number] 06:34:00 Test Item Value Reference Range Interpretation Comments cholesterol level (test code = 169 mg/dL 150-200 cholesterol level) triglycerides level (test code = 93 mg/dL <150 triglycerides level) HDL cholesterol (test code = HDL 52 mg/dL >55 L cholesterol) LDL cholesterol direct (test code = 108 mg/dL <100 H LDL cholesterol direct) cholesterol risk ratio (test code = 3.250 cholesterol risk ratio) [facility]] in [id number] 00:00:00 Test Item Value Reference Range Interpretation Comments Hemoglobin A1c [Mass/volume] in Blood 5.3 % 4.0-6.0 (test code = 19295-4) [facility]Un[facility]/volume] in Serum or [id number] 00:00:00 Test Item Value Reference Range Interpretation Comments Thyrotropin [Units/volume] in 0.44 uIU/mL 0.36-3.74 Serum or Plasma (test code = 3016-3) [facility]
[2022-04-25] MEDS ORDERED: NA CHLORIDE 0.9% 1,000 ML ONE (16:48)
[2022-04-25] MEDS ORDERED: TERBUTALINE SULF 1 MG/1ML ONE ×2 (16:48→17:43)
[2022-04-25] MEDS ORDERED: TERBUTALINE SULF 2.5 MG TAB ONE (17:06)
[2022-04-25 17:11] LABS: Hematocrit 47.5 % (39.6-49.0); Lymphocytes % 24.5 % (15.3-44.8); MCV 96.9 fL (80-100); MPV 9.4 fL (7.6-11.3)
[2022-04-25 17:27] LABS: Potassium 3.8 mmol/L (3.5-5.1)
[2022-04-25 18:11] LABS: Urine Blood Negative (Negative); Urine Glucose Negative (Negative); Urine Protein Negative (Negative); Urine Specific Gravity 1.025 (1.005-1.030)
[2022-04-25 18:18] LABS: Urine Bacteria <20 /HPF (<20); Urine Mucus 2+ /HPF (None Seen); Urine RBC <5 /HPF (None Seen)
[2022-04-25 18:26] LABS: Barbiturates NEGATIVE (NEGATIVE); Benzodiazepines NEGATIVE (NEGATIVE); Cocaine NEGATIVE (NEGATIVE); METHAMPHETAM NEGATIVE (NEGATIVE); Methadone NEGATIVE (NEGATIVE); Opiates NEGATIVE (NEGATIVE); Phencyclidine NEGATIVE (NEGATIVE); THC Cannibis NEGATIVE (NEGATIVE)
--- NOTE | 2022-04-25 19:04 | EDPHYS ---
Physician Documentation [facility] Name: Francesco Avelar Age: 26 yrs Sex: Male : 1995 Arrival Date: 04/25/2022 Time: 16:29 Bed 11 Private MD: ED Physician Steve Whalen HPI: 04/25 23:09 This 26 yrs old Male presents to ER via Ambulatory with complaints of Doesn't kb Feel Right. 23:09 The patient presents with priapism. Onset: The symptoms/episode began/occurred this kb morning, at 10:30. Modifying factors: The symptoms are alleviated by nothing, the symptoms are aggravated by nothing. Associated signs and symptoms: The patient has no apparent associated signs or symptoms. Severity of symptoms: At their worst the symptoms were moderate, in the emergency department the symptoms are unchanged. The patient has experienced similar episodes in the past. The patient has not recently seen a physician. Pt reports priapism since 1030 this morning. States he has had this happen approx 10 times in the past. States he woke up with it this morning. Reports terbutaline SQ has worked in the past. . Historical: - Allergies: 16:37 Imitrex; tw2 - Home Meds: 16:37 None [Active]; tw2 - PMHx: 16:37 Asthma; priapism; tw2 - PSHx: 16:37 L5 S1 laminectomy; tw2 - Immunization history:: Adult Immunizations. - Social history:: Smoking status: . ROS: 23:09 Constitutional: Negative for fever, chills, and weight loss. kb 23:09 : Positive for priapism. 23:09 All other systems are negative. Exam: 23:09 Constitutional: This is a well developed, well nourished patient who is awake, alert, kb and in no acute distress. Head/Face: Normocephalic, atraumatic. ENT: Moist Mucous membranes Cardiovascular: Regular rate and rhythm with a normal S1 and S2. No gallops, murmurs, or rubs. No pulse deficits. Respiratory: Respirations even and unlabored. No increased work of breathing. Talking in full sentences Abdomen/GI: Soft, non-tender. No distention Skin: Warm, dry with normal turgor. Normal color. MS/ Extremity: Pulses equal, no cyanosis. Neurovascular intact. Full, normal range of motion. Neuro: Awake and alert, GCS 15, oriented to person, place, time, and situation. Moves all extremities. Normal gait. 23:09 : Male external genitalia: Patient is not circumisioned. priapism. Vital Signs: 16:38 BP 136 / 80; Pulse 93; Resp 17; Temp 97.9(TE); Pulse Ox 99% on R/A; Weight 116.57 kg; tw2 Height 5 ft. 11 in. (180.34 cm); Pain 4/10; 18:12 BP 117 / 76; Pulse 131; Resp 24; Pulse Ox 99% on R/A; hb 16:38 Body Mass Index 35.84 (116.57 kg, 180.34 cm) tw2 MDM: 16:38 Patient medically screened. kb 18:48 Data reviewed: vital signs, nurses notes. Data interpreted: Pulse oximetry: on room air kb is 99 %. Interpretation: normal. Counseling: I had a detailed discussion with the patient and/or guardian regarding: the historical points, exam findings, and any diagnostic results supporting the discharge/admit diagnosis, lab results, the need for outpatient follow up, a family practitioner, to return to the emergency department if symptoms worsen or persist or if there are any questions or concerns that arise at home. 23:07 ED course: Discussed case with Dr Whalen upon pt arrival. Recommended terbutaline kb 0.5mg SQ Q15min x4 doses, terbutaline 2.5mg po and sudafed 120mg po. After treatment priapism has resolved. . 04/25 16:42 Order name: CBC with Diff; Complete Time: 17:18 kb 04/25 16:42 Order name: Basic Metabolic Panel; Complete Time: 17:34 kb 04/25 16:42 Order name: UDS; Complete Time: 18:32 kb 04/25 16:42 Order name: Urine Microscopic Only; Complete Time: 18:32 kb 04/25 18:11 Order name: Urine Dipstick-Ancillary; Complete Time: 18:11 EDMS 04/25 16:42 Order name: IV Start; Complete Time: 17:00 kb 04/25 16:42 Order name: Urine Dipstick-Ancillary (obtain specimen); Complete Time: 18:12 kb Administered Medications: 16:41 CANCELLED (Duplicate Order): Pseudoephedrine 60 mg PO once kb 16:52 Drug: Terbutaline 0.5 mg Route: Sub-Q; Site: right upper arm; hb 17:48 Follow up: Response: No adverse reaction hb 16:59 Drug: NS 0.9% 1000 ml Route: IV; Rate: 1000 ml; Site: left hand; hb 17:40 Follow up: Response: No adverse reaction; IV Status: Infusion continued; IV Intake: hb 1000ml 17:14 Drug: Terbutaline 2.5 mg Route: PO; hb 17:48 Follow up: Response: No adverse reaction hb 17:14 Drug: Terbutaline 0.5 mg Route: Sub-Q; Site: left upper abdomen; hb 17:48 Follow up: Response: No adverse reaction hb 17:48 Drug: Terbutaline 0.5 mg Route: Sub-Q; Site: right upper arm; hb 18:12 Follow up: Response: No adverse reaction hb 18:11 Drug: Terbutaline 0.5 mg Route: Sub-Q; Site: left upper arm; hb 18:55 Follow up: Response: No adverse reaction hb Disposition Summary: 04/25/22 19:04 Discharge Ordered Location: Home kb Condition: Stable kb Diagnosis - Priapism, unspecified - resolved kb Followup: kb - With: Emergency Department - When: As needed - Reason: Worsening of condition Followup: kb - With: Private Physician - When: 2 - 3 days - Reason: Recheck today's complaints, Continuance of care, Re-evaluation by your physician Discharge Instructions: - Discharge Summary Sheet kb - Priapism kb Forms: - Medication Reconciliation Form kb - Thank You Letter kb - Antibiotic Education kb - Prescription Opioid Use kb Signatures: Dispatcher [employer] Aida Jimenez, CREMATORIUM OPERATOR-C NASREEN-Joie Razo RN RN Mariaelena Pike RN RN tw2 Corrections: (The following items were deleted from the chart) 16:41 16:40 Pseudoephedrine 60 mg PO once ordered. kb kb
--- NOTE | 2022-04-25 19:04 | ER ---
Nurse's Notes [facility] Name: Francesco Avelar Age: 26 yrs Sex: Male : 1995 Arrival Date: 04/25/2022 Time: 16:29 Bed 11 Private MD: Diagnosis: Priapism, unspecified-resolved Presentation: 04/25 16:36 Chief complaint: Patient states: priapism since 1030 today. Coronavirus screen: At this tw2 time, the client does not indicate any symptoms associated with coronavirus-19. Ebola Screen: Patient denies travel to an Ebola-affected area in the 21 days before illness onset. Initial Sepsis Screen: Does the patient meet any 2 criteria? HR > 90 bpm. No. Patient's initial sepsis screen is negative. Does the patient have a suspected source of infection? No. Patient's initial sepsis screen is negative. Risk Assessment: Do you want to hurt yourself or someone else? Patient reports no desire to harm self or others. Onset of symptoms was April 25, 2022. 16:36 Method Of Arrival: Ambulatory tw2 16:40 Acuity: MCKENZIE 2 tw2 Triage Assessment: 16:39 General: Appears in no apparent distress. Behavior is calm, cooperative, appropriate tw2 for age. Pain: Complains of pain in penis. Historical: - Allergies: 16:37 Imitrex; tw2 - Home Meds: 16:37 None [Active]; tw2 - PMHx: 16:37 Asthma; priapism; tw2 - PSHx: 16:37 L5 S1 laminectomy; tw2 - Immunization history:: Adult Immunizations. - Social history:: Smoking status: . Screenin:00 Abuse screen: Denies threats or abuse. Denies injuries from another. Nutritional hb screening: No deficits noted. Tuberculosis screening: No symptoms or risk factors identified. Fall Risk None identified. Assessment: 17:00 General: Appears in no apparent distress. Behavior is calm, cooperative. Neuro: Level hb of Consciousness is awake, alert, obeys commands, Oriented to person, place, time, situation. Cardiovascular: Patient's skin is warm and dry. Respiratory: Respiratory effort is even, unlabored, Respiratory pattern is regular, symmetrical. 18:20 Reassessment: Pt reports mild relief, swelling noted to appear similar to this nurse. hb NAD. Family remains at bedside. Vital Signs: 16:38 BP 136 / 80; Pulse 93; Resp 17; Temp 97.9(TE); Pulse Ox 99% on R/A; Weight 116.57 kg; tw2 Height 5 ft. 11 in. (180.34 cm); Pain 4/10; 18:12 BP 117 / 76; Pulse 131; Resp 24; Pulse Ox 99% on R/A; hb 16:38 Body Mass Index 35.84 (116.57 kg, 180.34 cm) tw2 ED Course: 16:29 Patient arrived in ED. am2 16:31 Aida Hayes FNP-C is PHCP. kb 16:31 Steve Whalen MD is Attending Physician. kb 16:36 Arm band placed on. tw2 16:38 Aida Hayes FNP-C is PHCP. kb 16:38 Steve Whalen MD is Attending Physician. kb 16:40 Triage completed. tw2 16:49 Joie Higgins, RN is Primary Nurse. hb 16:58 Inserted saline lock: 22 gauge in right hand, using aseptic technique. Blood collected. iw Missed attempt(s): 22 gauge in left antecubital area. 17:00 Patient has correct armband on for positive identification. hb 19:10 No provider procedures requiring assistance completed. IV discontinued, intact, hb bleeding controlled, No redness/swelling at site. Administered Medications: 16:41 CANCELLED (Duplicate Order): Pseudoephedrine 60 mg PO once kb 16:52 Drug: Terbutaline 0.5 mg Route: Sub-Q; Site: right upper arm; hb 17:48 Follow up: Response: No adverse reaction hb 16:59 Drug: NS 0.9% 1000 ml Route: IV; Rate: 1000 ml; Site: left hand; hb 17:40 Follow up: Response: No adverse reaction; IV Status: Infusion continued; IV Intake: hb 1000ml 17:14 Drug: Terbutaline 2.5 mg Route: PO; hb 17:48 Follow up: Response: No adverse reaction hb 17:14 Drug: Terbutaline 0.5 mg Route: Sub-Q; Site: left upper abdomen; hb 17:48 Follow up: Response: No adverse reaction hb 17:48 Drug: Terbutaline 0.5 mg Route: Sub-Q; Site: right upper arm; hb 18:12 Follow up: Response: No adverse reaction hb 18:11 Drug: Terbutaline 0.5 mg Route: Sub-Q; Site: left upper arm; hb 18:55 Follow up: Response: No adverse reaction hb Medication: 17:00 VIS not applicable for this client. hb Intake: 17:40 IV: 1000ml; Total: 1000ml. hb Outcome: 19:04 Discharge ordered by MD. hurd 19:10 Discharged to home ambulatory. hb 19:10 Condition: stable 19:10 Discharge instructions given to patient, Instructed on discharge instructions, follow up and referral plans. medication usage, Demonstrated understanding of instructions, follow-up care, medications. 19:10 Patient left the ED. hb Signatures: Aida Hayes, FIRE PREVENTION INSPECTOR-C FIRE PREVENTION INSPECTOR-Ckb Marlin Douglas, RN RN Joie Higgins RN RN Mariaelena Pike RN RN tw2 Eleanor Gallegos am2 Corrections: (The following items were deleted from the chart) 17:41 17:14 Terbutaline 0.5 mg Sub-Q in left upper arm hb hb
[2022-04-25 19:25] VITALS: TEMP 97.9; O2SAT 99
[2022-04-25 19:35] VITALS: BP 117/76
== END 2022-04-25 19:10 | disposition home or self-care (01) ==
LOC: ER 16:26
DX: N48.30 Priapism, unspecified (principal)
CPT/HCPCS: 85025; 80048; 36415; 80307; 96360; 96372; 99283; J3105 ×2; J7030; 81003; 81015

== ENCOUNTER 2022-06-05 17:19 | Emergency (ER) | payer BC, OTHER ==
--- OUTSIDE RECORDS SUMMARY | 2022-06-05 17:23 | XMS REPORT | Continuity of Care Document ---
:1995 Author Organization [facility] t Address [address] [place] [address] Support Name Relationship Address Phone BALA CLARK Unavailable [address] [phone] [place] [address] GREGORY BATISTA Unavailable [address] [phone] [place] [address] Marianna Batista Parent [address] [place] [address] PRISCILA MAGANA MD Emergency Provider [address] [address] PHYSICIAN, NO Primary Care Physician Unavailable Unavailab MD PRISCILA Castillo Emergency Provider [address] [place] [address] MD [facility] Primary Care Physician [address] [place] [address] MD CELSA MUNGUIA Emergency Provider [address] [place] [address] MD BARBARA VELAZQUEZ Emergency Provider [address] [place] [address] MD SHI ANAYA Emergency Provider [address] [place] [address] DO SANTOSH GIBBONS Admitting Provider [address] [place] [address] MD HARRISON RICO Emergency Provider [address] [place] [address] MD ASIF AMES Emergency Provider [address] [place] [id number] MD JASON DUNAWAY Emergency Provider [address] [phone] [place] [address] Care Team Providers Name Role Phone Ronnell Diaz MD Primary Care Physician Ronnell Diaz Attending Clinician Unavailable MAYNOR ROMERO Attending Clinician Unavailable JASON DUNAWAY Attending Clinician Unavailable NAHUN KHANNA Attending Clinician Unavailable Rich Salgado Attending Clinician BRENDA MALDONADO Attending Clinician Unavailable RADHA MARQUEZ Attending Clinician Unavailable SHI ANAYA Attending Clinician Unavailable Maynor Romero MD Attending Clinician [place]_Sonja Attending Clinician Unavailable Gloria Attending Clinician Unavailable Mallory Jiang RN Attending Clinician Unavailable Alfreda Duvall MD Attending Clinician Giovany CERVANTESPAnna Attending Clinician Graeme DISTRIBUTION COORDINATOR, Micaela Santa Attending Clinician Parish Chamorro MD Attending Clinician Basilio Diallo MD Attending Clinician JONA Attending Clinician Unavailable Koudela_A Attending Clinician Unavailable Zuniga_S Attending Clinician Unavailable Raju_P Attending Clinician Unavailable Zuniga_F Admitting Clinician Unavailable Gloria Admitting Clinician Unavailable MAYNOR ROMERO Admitting Clinician Unavailable BASILIO DIALLO Admitting Clinician Unavailable JONA Admitting Clinician Unavailable Koudela_A Admitting Clinician Unavailable Zuniga_S Admitting Clinician Unavailable Raju_P Admitting Clinician Unavailable Payers Payer Name Policy Type Policy Number Effective Date Expiration Date S [place] [id number] 2014 (PPO) 00:00:00 [facility] [id number] 2019 [place] 00:00:00 (MED[place] [id number] [place] [facility] [id number] [facility]IT[facility]) Problems Condition Condition Condition Status Onset Resolution Last Treating Co mments Source Name Details Category Date Date Treatment Clinician Date Spinal Spinal Disease Active Methodi stenosis stenosis 8-23 st of of 00:00: Hospita lumbosacra lumbosacra 00 l l region l region Left Left Disease Active Overview: Method i lumbar lumbar 8-[address] radiculiti radiculiti 00:00: g of this Hospita s s 00 note l might be different from the original. Added automatic ally from request for surgery [id number] Priapism Priapism Disease Active Metho di 8-17 st 00:00: Hospita 00 l Tinnitus Tinnitus [...] ents Source Name Type Date Date Clinician Sumatrip Propensi Active GI 2020-07 VOMITING Meth joanna porras ty to Intolerance 2-15 st adverse 00:00: Hospita reaction 00 l s to drug sumatrip sumatrip Active Unknown Commo n porras porras [facility] Imitrex Allergy Active [place] Family History Family Member Diagnosis Comments Start Date Stop Date Source Natural father Doan's palsy [facility] Natural mother Fibromyalgia [facility] Social History Social Habit Start Date Stop Date Quantity Comments Source History of Current Smoker Common Spi rit - Tobacco Use [facility] Alcohol intake 2022-03-03 2022-03-03 Current drinker Metho dist 00:00:00 00:00:00 of alcohol Hospital (finding) Tobacco use and 2022-03-01 2022-03-01 Smokeless tobacco Me thodist exposure 00:00:00 00:00:00 non-user Hospital Alcohol Comment 2022-03-01 2022-03-01 EVERY OTHER Methodis t 00:00:00 00:00:00 [facility] Sex Ass[birth year] At [birth year] [facility] 00:00:00 00:00:00 Hospital Smoking Status Start Date Stop Date Source Light Tobacco Smoker [facility] Current Smoker 2022-05-19 00:00:00 [facility] Spiri t - [facility] Medications Ordered Filled Start Stop Current Ordering Indication Dosage Frequency Signature Comments Components Source Medication Medication Date Date Medication? Clinician (SIG) Name Name Terbutaline Terbutaline 2021-07 No Terbutalin Sulfate 2.5 Sulfate 2.5 07-19 e Sulfate MG MG 00:00: 2.5 MG 00 methylPREDN 2021- Yes Use as Met hodi ISolone 03-[address] (MEDROL 00:00: 04:59 by package Hos félix DOSEPAK) 4 00 :00 instructio l mg tablet ns methylPREDN 2021-0 2021- Yes Use as Met hodi ISolone 03-[address] (MEDROL 00:00: 04:59 by package Hos félix DOSEPAK) 4 00 :00 instructio l mg tablet ns methylPREDN 2021-0 2021- No Use as Met hodi ISolone 03-[address] (MEDROL 00:00: 04:59 by package Hos félix DOSEPAK) 4 00 :00 instructio l mg tablet ns methylPREDN 2021-0 2021- No Use as Met hodi ISolone 03-[address] (MEDROL 00:00: 04:59 by package Hos félix DOSEPAK) 4 00 :00 instructio l mg tablet ns methylPREDN 2021-0 2021- No Use as Met hodi ISolone 03-[address] (MEDROL 00:00: 04:59 by package Hos félix DOSEPAK) 4 00 :00 instructio l mg tablet ns methylPREDN 2021-0 2021- No Use as Met hodi ISolone 03-[address] (MEDROL 00:00: 04:59 by package Hos félix DOSEPAK) 4 00 :00 instructio l mg tablet ns methylPREDN 2021-0 2021- No Use as Met hodi ISolone 03-[address] (MEDROL 00:00: 04:59 by package Hos félix DOSEPAK) 4 00 :00 instructio l mg tablet ns methylPREDN 2021- No Use as Met hodi ISolone 03-[address] (MEDROL 00:00: 04:59 by package [...] 10 total) by l mouth daily. hydrOXYzine Yes 25mg QD Take 1 Meth joanna (ATARAX) 25 8-23 tablet (25 st MG tablet 11:57: mg total) Hos félix 10 by mouth l daily. levalbutero Yes 2{puff} Q2D Inhale 2 Methodi l (XOPENEX 8-[address] HFA) 45 11:57: every Hospita mcg/actuati 10 other day. l on inhaler budesonide- Yes 2{puff} Q.5D Inhale 2 Methodi formoteroL 8-[address] (SYMBICORT) 11:57: (two) Hospi ta 160-4.5 10 times a l mcg/actuati day. on inhaler busPIRone 0 Yes 5mg Q.5D Take 1 Method i (BUSPAR) 5 8-23 tablet (5 st MG tablet 11:57: mg total) Hos félix 10 by mouth 2 l (two) times a day. gabapentin 2021-0 Yes 600mg QD Take 2 Meth joanna [...] 10 other day. l on inhaler budesonide- 2022-0 Yes 2{puff} Q.5D Inhale 2 Methodi formoteroL [...] 10 other day. l on inhaler budesonide- 2022-0 Yes 2{puff} Q.5D Inhale 2 Methodi formoteroL [...] a l mcg/actuati day. on inhaler busPIRone 2-0 Yes 5mg Q.5D Take 1 Method i [...] 10 other day. l on inhaler budesonide- 2022-0 Yes 2{puff} Q.5D Inhale 2 Methodi formoteroL [...] 10 total) by l mouth daily. hydrOXYzine Yes 25mg QD Take 1 Meth joanna (ATARAX) 25 8-23 tablet (25 st MG tablet 11:57: mg total) Hos félix 10 by mouth l daily. levalbutero Yes 2{puff} Q2D Inhale 2 Methodi l (XOPENEX 8-[address] HFA) 45 11:57: every Hospita mcg/actuati 10 other day. l on inhaler acetaminoph 2021- [place] [id number] 1{tbl} Q6H Take 1 Methodi en-codeine 03-[address] (TYLENOL 00:00: 04:59 mouth Hospita WITH 00 :00 every 6 l CODEINE #3) (six) 300-30 mg hours as per tablet needed for moderate pain for up to 10 days .acute pain. acetaminoph 2021- [place] [id number] 1{tbl} Q6H Take 1 Methodi en-codeine 03-[address] (TYLENOL 00:00: 04:59 mouth Hospita WITH 00 :00 every 6 l CODEINE #3) (six) 300-30 mg hours as per tablet needed for moderate pain for up to 10 days .acute pain. acetaminoph 2021- No 1{tbl} Q6H Take 1 Methodi en-codeine 03-02 [...] up to 10 days .acute pain. traMADoL 50mg Q6H Take 1 Metho di (ULTRAM) [...] up to 5 days .acute pain. traMADoL 50mg Q6H Take 1 Metho di (ULTRAM) 50 8-19 08-25 tablet (50 s t mg tablet 00:00: 04:59 mg total) Ho spita 00 :00 by mouth l every 6 (six) hours as needed for moderate pain for up to 5 days .acute pain. traMADoL [id number] 50mg Q6H Take 1 Metho di (ULTRAM) [...] up to 5 days .acute pain. traMADoL 2021-0 2021- [place] [id number] 50mg Q6H Take 1 Metho di (ULTRAM) 50 8-19 08-25 tablet (50 s t mg tablet 00:00: 04:59 mg total) Ho spita 00 :00 by mouth l every 6 (six) hours as needed for moderate pain for up to 5 days .acute pain. traMADoL 2021-0 2021- No [id number] 50mg Q6H Take 1 Metho di (ULTRAM) 50 8-19 08-25 tablet (50 s t mg tablet 00:00: 04:59 mg total) Ho spita 00 :00 by mouth l every 6 (six) hours as needed for moderate pain for up to 5 days .acute pain. traMADoL 2021-0 2021- No [id number] 50mg Q6H Take 1 Metho di (ULTRAM) 50 8-19 08-25 tablet (50 s t mg tablet 00:00: 04:59 mg total) Ho spita 00 :00 by mouth l every 6 (six) hours as needed for moderate pain for up to 5 days .acute pain. ibuprofen 2021-0 2021- No 600mg Q6H Take 1 Meth joanna (ADVIL) 600 8-18 08-[address] MG tablet 00:00: 00:00 (600 mg Hosp nithya 00 :00 total) by l mouth every 6 (six) hours as needed for moderate pain (Back pain) for up to 7 days. ibuprofen 2021-0 2- No 600mg Q6H Take 1 Meth joanna (ADVIL) 600 8-18 08-[address] MG tablet 00:00: 00:00 (600 mg Hosp nithya 00 :00 total) by l mouth every 6 (six) hours as needed for moderate pain (Back pain) for up to 7 days. ibuprofen 2021-0 2022- No 600mg Q6H Take 1 Meth joanna (ADVIL) 600 8-18 08-[address] MG tablet 00:00: 00:00 (600 mg Hosp nithya 00 :00 total) by l mouth every 6 (six) hours as needed for moderate pain (Back pain) for up to 7 days. ibuprofen 2021-0 2- No 600mg Q6H Take 1 Meth joanna (ADVIL) 600 8-18 08-[address] MG tablet 00:00: 00:00 (600 mg Hosp nithya 00 :00 total) by l mouth every 6 (six) hours as needed for moderate pain (Back pain) for up to 7 days. ibuprofen 202-0 2022- No 600mg Q6H Take 1 Meth joanna (ADVIL) 600 8-18 08-[address] MG tablet 00:00: 00:00 (600 mg Hosp nihtya 00 :00 total) by l mouth every 6 (six) hours as needed for moderate pain (Back pain) for up to 7 days. ibuprofen 2021-0 2022- No 600mg Q6H Take 1 Meth joanna (ADVIL) 600 8-18 08-[address] MG tablet 00:00: 00:00 (600 mg Hosp nithya 00 :00 total) by l mouth every 6 (six) hours as needed for moderate pain (Back pain) for up to 7 days. ibuprofen 2021-0 2022- No 600mg Q6H Take 1 Meth joanna (ADVIL) 600 8-18 08-[address] MG tablet 00:00: 00:00 (600 mg Hosp nithya 00 :00 total) by l mouth every 6 (six) hours as needed for moderate pain (Back pain) for up to 7 days. ibuprofen 2021-0 2022- No 600mg Q6H Take 1 Meth joanna (ADVIL) 600 8-18 08-[address] MG tablet 00:00: 00:00 (600 mg Hosp nithya 00 :00 total) by l mouth every 6 (six) hours as needed for moderate pain (Back pain) for up to 7 days. ibuprofen 2021-0 2022- No 600mg Q6H Take 1 Meth joanna (ADVIL) 600 8-18 08-[address] MG tablet 00:00: 00:00 (600 mg Hosp nithya 00 :00 total) by l mouth every 6 (six) hours as needed for moderate pain (Back pain) for up to 7 days. ibuprofen 202-0 2022- No 600mg Q6H Take 1 Meth joanna (ADVIL) 600 8-18 08-[address] MG tablet 00:00: 00:00 (600 mg Hosp nithya 00 :00 total) by l mouth every 6 (six) hours as needed for moderate pain (Back pain) for up to 7 days. ibuprofen 2022-0 2022- No 600mg Q6H Take 1 Meth joanna (ADVIL) 600 8-18 08-[address] MG tablet 00:00: 00:00 (600 mg Hosp nithya 00 :00 total) by l mouth every 6 (six) hours as needed for moderate pain (Back pain) for up to 7 days. ibuprofen 2021- No 600mg Q6H Take 1 Meth joanna (ADVIL) 600 8-18 -[address] MG tablet 00:00: 00:00 (600 mg Hosp nithya 00 :00 total) by l mouth every 6 (six) hours as needed for moderate pain (Back pain) for up to 7 days. lif2021- No INJECT ONE Met hodi Maintena [...] l extended ONCE A rel syring MONTH f2021- No INJECT ONE Met hodi Maintena 5-18 08-17 (1) UNIT st 400 mg 00:00: 00:00 INTO THE Hospit a suspension, 00 :00 MUSCLE l extended ONCE A rel syring MONTH lify 2021- No INJECT ONE Met hodi Maintena 5-18 08-17 (1) UNIT st 400 mg 00:00: 00:00 INTO THE Hospit a suspension, 00 :00 MUSCLE l extended ONCE A rel syring MONTH lify 2021- No INJECT ONE Met hodi Maintena 5-18 08-17 (1) UNIT st 400 mg 00:00: 00:00 INTO THE Hospit a suspension, 00 :00 MUSCLE l extended ONCE A rel syring MONTH Abify 2022-0 2022- No INJECT ONE Met hodi Maintena 5-18 [...] MUSCLE l extended ONCE A rel syring 2021- No INJECT ONE Met hodi Maintena 5-18 08-17 (1) UNIT st 400 mg 00:00: 00:00 INTO THE Hospit a suspension, 00 :00 MUSCLE l extended ONCE A rel syring MONTH Melatonin 1 Melatonin 1 No 4{ml_at QD Melatonin MG/4ML MG/4ML _bedtim 1 MG/4ML e_as_ne eded} Sudafed 30 Sudafed 30 No 2{table QID Sudafed 30 MG MG ts_as_n MG eeded} acetaminoph acetaminoph No acetaminop [place] 300 [...] Date Status Commen ts Source Name Name BUYSTANDALFAMediaPhyClary [facility] 2020-10-16 Completed Meth odist VACCINATION 00:00:00 [facility] COVID-19 MRNA 2020-10-16 Completed Meth odist VACCINATION 00:00:00 [facility] COVID-19 MRNA 2020-10-16 Completed Meth odist VACCINATION 00:00:00 [facility] COVID-19 MRNA 2020-10-16 Completed Meth odist VACCINATION 00:00:00 [facility] COVID-19 MRNA 2020-10-16 Completed Meth odist VACCINATION 00:00:00 [facility] COVID-19 MRNA 2020-10-16 Completed Meth odist VACCINATION 00:00:00 [facility] COVID-19 MRNA 2020-10-16 Completed Meth odist VACCINATION 00:00:00 [facility] COVID-19 MRNA 2020-10-16 Completed Meth odist VACCINATION 00:00:00 [facility] PFIZER COVID-19 MRNA 2020-10-16 Completed Meth odist VACCINATION 00:00:00 [facility] PFIZER COVID-19 MRNA 2020-10-16 Completed Meth odist VACCINATION 00:00:00 [facility] PFIZER COVID-19 MRNA 2020-10-16 Completed Meth odist VACCINATION 00:00:00 [facility] PFIZER COVID-19 MRNA 2020-10-16 Completed Meth odist VACCINATION 00:00:00 [facility] PFIZER COVID-19 MRNA 2020-09-25 Completed Meth odist VACCINATION 00:00:00 [facility] PFIZER COVID-19 MRNA 2020-09-25 Completed Meth odist VACCINATION 00:00:00 [facility] PFIZER COVID-19 MRNA 2020-09-25 Completed Meth odist VACCINATION 00:00:00 [facility] PFIZER COVID-19 MRNA 2020-09-25 Completed Meth odist VACCINATION 00:00:00 [facility] PFIZER COVID-19 MRNA 2020-09-25 Completed Meth odist VACCINATION 00:00:00 [facility] PFIZER COVID-19 MRNA 2020-09-25 Completed Meth odist VACCINATION 00:00:00 [facility] PFIZER COVID-19 MRNA 2020-09-25 Completed Meth odist VACCINATION 00:00:00 [facility] PFIZER COVID-19 MRNA 2020-09-25 Completed Meth odist VACCINATION 00:00:00 [facility] PFIZER COVID-19 MRNA 2020-09-25 Completed Meth odist VACCINATION 00:00:00 [facility] PFIZER COVID-19 MRNA 2020-09-25 Completed Meth odist VACCINATION 00:00:00 [facility] PFIZER COVID-19 MRNA 2020-09-25 Completed Meth odist VACCINATION 00:00:00 [facility] PFIZER COVID-19 MRNA 2020-09-25 Completed Meth odist VACCINATION 00:00:00 Hospital Vital Signs Vital Name Observation Time Observation Value Comments Source height 2022-05-19 10:30:00 71 [in_i] [facility] weight 2022-05-19 10:30:00 254.6 [lb_av] [facility] temperature 2022-05-19 10:30:00 97.6 [degF] [facility] bmi 2022-05-19 10:30:00 35.51 kg/m2 [facility] oximetry 2022-05-19 10:30:00 98 % Common S [facility] respiratory rate 2022-05-19 10:30:00 18 /min Comm on [facility] blood pressure 2022-05-19 10:30:00 35 mm[Hg] [facility] systolic [facility] blood pressure 2022-05-19 10:30:00 78 mm[Hg] [facility] - diastolic [facility] BP Diastolic 2022-03-09 00:00:00 77 mm[Hg] [facility] Height 2022-03-09 00:00:00 71 [in_i] [facility] BMI (Body Mass 2022-03-09 00:00:00 35.6 kg/m2 [facility] Index) Group BP Systolic 2022-03-09 00:00:00 122 mm[Hg] [facility] Body Weight 2022-03-09 00:00:00 4078.4 [oz_av] [facility] BP Diastolic 2021-11-06 00:00:00 83 mm[Hg] [facility] Height 2021-11-06 00:00:00 71 [in_i] [facility] BMI (Body Mass 2021-11-06 00:00:00 35 kg/m2 [facility] Medical Index) Group BP Systolic 2021-11-06 00:00:00 127 mm[Hg] [facility] Body Weight 2021-11-06 00:00:00 4020 [oz_av] [facility] Height 2021-09-14 00:00:00 71 [in_i] [facility] BMI (Body Mass 2021-09-14 00:00:00 34.6 kg/m2 [facility] Index) Group Body Weight 2021-09-14 00:00:00 3968 [oz_av] [facility] BP Diastolic 2021-03-26 00:00:00 75 mm[Hg] [facility] Height 2021-03-26 00:00:00 71 [in_i] [facility] BMI (Body Mass 2021-03-26 00:00:00 31.1 kg/m2 [facility]) Group BP Systolic 2021-03-26 00:00:00 118 mm[Hg] [facility] Body Weight 2021-03-26 00:00:00 3569 [oz_av] [facility] BP Diastolic 2021-03-10 00:00:00 69 mm[Hg] [facility] Height 2021-03-10 00:00:00 71 [in_i] [facility] BMI (Body Mass 2021-03-10 00:00:00 30.8 kg/m2 [facility] Index) Group BP Systolic 2021-03-10 00:00:00 111 mm[Hg] [facility] Body Weight 2021-03-10 00:00:00 3529 [oz_av] [facility] BP Diastolic 2021-01-02 00:00:00 63 mm[Hg] [facility] Height 2021-01-02 00:00:00 71 [in_i] [facility] BMI (Body Mass 2021-01-02 00:00:00 30.3 kg/m2 [facility]) Group BP Systolic 2021-01-02 00:00:00 112 mm[Hg] [facility] Body Weight 2021-01-02 00:00:00 3481 [oz_av] [facility] BP Diastolic 2020-07-15 00:00:00 71 mm[Hg] [facility] Height 2020-07-15 00:00:00 71 [in_i] [facility] BMI (Body Mass 2020-07-15 00:00:00 29.7 kg/m2 [facility]) Group BP Systolic 2020-07-15 00:00:00 117 mm[Hg] [facility] Body Weight 2020-07-15 00:00:00 213 [lb_av] [facility] BP Diastolic 2020-07-14 00:00:00 71 mm[Hg] [facility] Height 2020-07-14 00:00:00 71 [in_i] [facility] BMI (Body Mass 2020-07-14 00:00:00 29.7 kg/m2 [facility]) Group BP Systolic 2020-07-14 00:00:00 117 mm[Hg] [facility] Body Weight 2020-07-14 00:00:00 3411 [oz_av] [facility] Height 2020-01-30 00:00:00 71 [facility] BMI (Body Mass 2020-01-30 00:00:00 30 kg/m2 [facility]) Group Body Weight 2020-01-30 00:00:00 3440 [oz_av] [facility] Systolic blood 2022-03-02 15:38:00 114 mm[Hg] [facility] pressure Diastolic blood 2022-03-02 15:38:00 67 mm[Hg] [facility] pressure Heart rate 2022-03-02 15:38:00 63 /min [facility] Respiratory rate 2022-03-02 15:38:00 16 /min [facility] Oxygen saturation in 2022-03-02 15:38:00 97 /min [facility] Arterial blood by Pulse oximetry Body temperature 2022-03-02 15:30:00 36.33 Elle [facility] Body height 2022-03-01 15:26:00 180.3 cm [facility] Body weight 2022-03-01 15:26:00 115.123 kg [facility] BMI 2022-03-01 15:26:00 35.40 kg/m2 [facility] Procedures Procedure Date / Time Performing Clinician Source Performed US, duplex, penis, 2022-03-09 00:00:00 [facility] [place] < 1 HOUR 2022-03-02 18:31:17 Maynor Romero ospital 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 2022-03-02 13:31:57 Alfreda Duvall [facility] SPINAE NE AN ELECTIVE 2022-03-02 12:35:00 [facility] ENDOTRACHEAL AIRWAY LAMINECTOMY, LUMBAR 2022-03-02 12:29:00 [facility] 2022-03-02 11:43:00 Maynor Romero ospital Back Surgery 2022-03-02 00:00:00 [facility] XR CHEST 2 VW 2022-03-01 17:28[facility]POST OP 2022-03-01 16:38:21 Maynor Romero ospital HEMOGLOBIN A1C 2022-03-01 16:18:00 [facility] COVID-19 QUALITATIVE 2022-03-01 15:48:00 [facility] RT-PCR HC COMPLETE BLD COUNT 2022-03-01 15:48:00 Maynor Romero [facility] W/AUTO DIFF PARTIAL THROMBOPLASTIN 2022-03-01 15:48:00 Maynor Romero [facility] TIME (PTT) PROTHROMBIN TIME WITH INR 2022-03-01 15:48:00 Maynor Romero [facility] CT POST MYELOGRAM LUMBAR 2022-02-25 18:14:[facility] IR MYELOGRAM LUMB INCL 2022-02-25 17:55:00 [facility] INJ W S&I COVID-19 QUALITATIVE 2022-02-24 22:40:00 [facility] RT-PCR COMPREHENSIVE METABOLIC 2022-02-24 22:40:00 [facility] PANEL HC COMPLETE BLD COUNT 2022-02-24 22:40:00 Federico Shetty [facility] W/AUTO DIFF TROPONIN T 2022-02-24 22:40:00 [facility] B NATRIURETIC PEPTIDE 2022-02-24 22:40:00 Federico Shetty [facility] ESTIMATED GFR 2022-02-24 22:40:00 Federico Shetty [facility] GENERAL 2022-02-24 22:27:14 [facility] CT SPINE EXTERNAL STUDY 2022-02-12 16:40:33 Maynor Romero [facility] XR ABDOMEN 2 VW AP W 2021-12-18 16:48:33 Maynor Romero [facility] UPRIGHT AND/OR DECUBITUS XR LUMBAR SPINE COMPLETE 2021-12-18 15:33:23 Maynor Romero [facility] W BENDING XR SPINE EXTERNAL STUDY 2021-08-10 17:26:30 Maynor Romero [facility] XR, lumbar spine 2021-03-10 00:00:00 Myla Vallejo Plan of Care Planned Activity Planned Date Details Comments Source Future Scheduled 2022-05-20 Pneumococcal Vaccine: [facility] Test 09:23:23 Pediatrics (0 to 5 Years) and At-Risk Patients (6 to 64 Years) (1 - PCV) [code = Pneumococcal Vaccine: Pediatrics (0 to 5 Years) and At-Risk Patients (6 to 64 Years) (1 - PCV)] Future Scheduled 2022-05-20 Hepatitis C screening [facility] Test 09:23:23 (procedure) [code = [id number]] Future Scheduled 2022-05-20 COVID-19 VACCINE (3 - [facility] Test 09:23:23 Booster for Pfizer series) [code = COVID-19 VACCINE (3 - Booster for Pfizer series)] Future Scheduled 2022-05-20 INFLUENZA VACCINE Method [facility] Test 09:23:23 [code = INFLUENZA VACCINE] Future Scheduled 2022-05-20 Pneumococcal Vaccine: [facility] Test 09:23:23 Pediatrics (0 to 5 Years) and At-Risk Patients (6 to 64 Years) (1 - PCV) [code = Pneumococcal Vaccine: Pediatrics (0 to 5 Years) and At-Risk Patients (6 to 64 Years) (1 - PCV)] Future Scheduled 2022-05-20 Hepatitis C screening [facility] Test 09:23:23 (procedure) [code = 163309762] Future Scheduled 2022-05-20 COVID-19 VACCINE (3 - [facility] Test 09:23:23 Booster for Pfizer series) [code = COVID-19 VACCINE (3 - Booster for Pfizer series)] Future Scheduled 2022-05-20 INFLUENZA VACCINE Method [facility] Test 09:23:23 [code = INFLUENZA VACCINE] Future Scheduled 2022-05-20 Pneumococcal Vaccine: [facility] Test 09:23:23 Pediatrics (0 to 5 Years) and At-Risk Patients (6 to 64 Years) (1 - PCV) [code = Pneumococcal Vaccine: Pediatrics (0 to 5 Years) and At-Risk Patients (6 to 64 Years) (1 - PCV)] Future Scheduled 2022-05-20 Hepatitis C screening [facility] Test 09:23:23 (procedure) [code = [id number]] Future Scheduled 2022-05-20 COVID-19 VACCINE (3 - [facility] Test 09:23:23 Booster for Pfizer series) [code = COVID-19 VACCINE (3 - Booster for Pfizer series)] Future Scheduled 2022-05-20 INFLUENZA VACCINE Method [facility] Test 09:23:23 [code = INFLUENZA VACCINE] Future Scheduled 2022-05-11 Pneumococcal Vaccine: [facility] Test 07:01:06 Pediatrics (0 to 5 Years) and At-Risk Patients (6 to 64 Years) (1 - PCV) [code = Pneumococcal Vaccine: Pediatrics (0 to 5 Years) and At-Risk Patients (6 to 64 Years) (1 - PCV)] Future Scheduled 2022-05-11 Hepatitis C screening [facility] Test 07:01:06 (procedure) [code = [id number]] Future Scheduled 2022-05-11 COVID-19 VACCINE (3 - [facility] Test 07:01:06 Booster for Pfizer series) [code = COVID-19 VACCINE (3 - Booster for Pfizer series)] Future Scheduled 2022-05-11 INFLUENZA VACCINE Method [facility] Test 07:01:06 [code = INFLUENZA VACCINE] Future Scheduled 2022-05-11 Pneumococcal Vaccine: [facility] Test 07:01:06 Pediatrics (0 to 5 Years) and At-Risk Patients (6 to 64 Years) (1 - PCV) [code = Pneumococcal Vaccine: Pediatrics (0 to 5 Years) and At-Risk Patients (6 to 64 Years) (1 - PCV)] Future Scheduled 2022-05-11 Hepatitis C screening [facility] Test 07:01:06 (procedure) [code = [id number]] Future Scheduled 2022-05-11 COVID-19 VACCINE (3 - [facility] Test 07:01:06 Booster for Pfizer series) [code = COVID-19 VACCINE (3 - Booster for Pfizer series)] Future Scheduled 2022-05-11 INFLUENZA VACCINE Method [facility] Test 07:01:06 [code = INFLUENZA VACCINE] Future Scheduled 2022-04-23 Pneumococcal Vaccine: [facility] Test 15:05:55 Pediatrics (0 to 5 Years) and At-Risk Patients (6 to 64 Years) (1 - PCV) [code = Pneumococcal Vaccine: Pediatrics (0 to 5 Years) and At-Risk Patients (6 to 64 Years) (1 - PCV)] Future Scheduled 2022-04-23 Hepatitis C screening [facility] Test 15:05:55 (procedure) [code = [id number]] Future Scheduled 2022-04-23 COVID-19 VACCINE (3 - [facility] Test 15:05:55 Booster for Pfizer series) [code = COVID-19 VACCINE (3 - Booster for Pfizer series)] Future Scheduled 2022-04-23 INFLUENZA VACCINE Method [facility] Test 15:05:55 [code = INFLUENZA VACCINE] Future Scheduled 2022-03-19 Pneumococcal Vaccine: [facility] Test 14:05:17 Pediatrics (0 to 5 Years) and At-Risk Patients (6 to 64 Years) (1 - PCV) [code = Pneumococcal Vaccine: Pediatrics (0 to 5 Years) and At-Risk Patients (6 to 64 Years) (1 - PCV)] Future Scheduled 2022-03-19 Hepatitis C screening [facility] Test 14:05:17 (procedure) [code = [id number]] Future Scheduled 2022-03-19 COVID-19 VACCINE (3 - [facility] Test 14:05:17 Booster for Pfizer series) [code = COVID-19 VACCINE (3 - Booster for Pfizer series)] Future Scheduled 2022-03-19 INFLUENZA VACCINE Method [facility] Test 14:05:17 [code = INFLUENZA VACCINE] Future Scheduled 2022-03-19 Pneumococcal Vaccine: [facility] Test 14:05:17 Pediatrics (0 to 5 Years) and At-Risk Patients (6 to 64 Years) (1 - PCV) [code = Pneumococcal Vaccine: Pediatrics (0 to 5 Years) and At-Risk Patients (6 to 64 Years) (1 - PCV)] Future Scheduled 2022-03-19 Hepatitis C screening [facility] Test 14:05:17 (procedure) [code = [id number]] Future Scheduled 2022-03-19 COVID-19 VACCINE (3 - [facility] Test 14:05:17 Booster for Pfizer series) [code = COVID-19 VACCINE (3 - Booster for Pfizer series)] Future Scheduled 2022-03-19 INFLUENZA VACCINE Method [facility] Test 14:05:17 [code = INFLUENZA VACCINE] Future Scheduled 2022-03-06 Pneumococcal Vaccine: [facility] Test 19:05:17 Pediatrics (0 to 5 Years) and At-Risk Patients (6 to 64 Years) (1 - PCV) [code = Pneumococcal Vaccine: Pediatrics (0 to 5 Years) and At-Risk Patients (6 to 64 Years) (1 - PCV)] Future Scheduled 2022-03-06 Hepatitis C screening [facility] Test 19:05:17 (procedure) [code = [id number]] Future Scheduled 2022-03-06 COVID-19 VACCINE (3 - [facility] Test 19:05:17 Booster for Pfizer series) [code = COVID-19 VACCINE (3 - Booster for Pfizer series)] Future Scheduled 2022-03-06 INFLUENZA VACCINE Method [facility] Test 19:05:17 [code = INFLUENZA VACCINE] Future Scheduled 2022-03-06 Pneumococcal Vaccine: [facility] Test 19:05:17 Pediatrics (0 to 5 Years) and At-Risk Patients (6 to 64 Years) (1 - PCV) [code = Pneumococcal Vaccine: Pediatrics (0 to 5 Years) and At-Risk Patients (6 to 64 Years) (1 - PCV)] Future Scheduled 2022-03-06 Hepatitis C screening [facility] Test 19:05:17 (procedure) [code = [id number]] Future Scheduled 2022-03-06 COVID-19 VACCINE (3 - [facility] Test 19:05:17 Booster for Pfizer series) [code = COVID-19 VACCINE (3 - Booster for Pfizer series)] Future Scheduled 2022-03-06 INFLUENZA VACCINE Method [facility] Test 19:05:17 [code = INFLUENZA VACCINE] Future Scheduled 2022-03-06 Pneumococcal Vaccine: [facility] Test 19:05:17 Pediatrics (0 to 5 Years) and At-Risk Patients (6 to 64 Years) (1 - PCV) [code = Pneumococcal Vaccine: Pediatrics (0 to 5 Years) and At-Risk Patients (6 to 64 Years) (1 - PCV)] Future Scheduled 2022-03-06 Hepatitis C screening [facility] Test 19:05:17 (procedure) [code = [id number]] Future Scheduled 2022-03-06 COVID-19 VACCINE (3 - [facility] Test 19:05:17 Booster for Pfizer series) [code = COVID-19 VACCINE (3 - Booster for Pfizer series)] Future Scheduled 2022-03-06 INFLUENZA VACCINE Method [facility] Test 19:05:17 [code = INFLUENZA VACCINE] Future Scheduled 2022-03-06 Pneumococcal Vaccine: [facility] Test 19:05:17 Pediatrics (0 to 5 Years) and At-Risk Patients (6 to 64 Years) (1 - PCV) [code = Pneumococcal Vaccine: Pediatrics (0 to 5 Years) and At-Risk Patients (6 to 64 Years) (1 - PCV)] Future Scheduled 2022-03-06 Hepatitis C screening [facility] Test 19:05:17 (procedure) [code = [id number]] Future Scheduled 2022-03-06 COVID-19 VACCINE (3 - [facility] Test 19:05:17 Booster for Pfizer series) [code = COVID-19 VACCINE (3 - Booster for Pfizer series)] Future Scheduled 2022-03-06 INFLUENZA VACCINE Method [facility] Test 19:05:17 [code = INFLUENZA VACCINE] Encounters Start End Encounter Admission Attending Care Care Encounter Source Date/Time Date/Time Type Type Clinicians Facility Department ID 2022-05-31 [facility] [id number] [facility] 12:03:56 [id number] [place] 2022-05-19 [facility] [id number] Common 09:43:04 Ronnell 71647 [facility] 2022-05-03 Inpatient YASMEEN ROMERO [facility] [id number] [place] 09:00:00 MAYNOR -[id number] [facility] 2022-03-23 Inpatient GINNY GROSS [id number] [facility] 11:21:45 [id number] [place] 2022-06-05 2022-06-05 Emergency ER GUME, [facility] [id number] [place] 15:31:00 15:45:00 JASON -[id number] [facility] 2022-06-02 2022-06-02 Outpatient YASMEEN ROMERO, [facility] [id number] [place] 11:00:00 11:00:00 MAYNOR -[id number] [facility] 2022-05-26 2022-05-26 Outpatient YASMEEN ROMERO [facility] [id number] [place] 11:00:00 11:00:00 MAYNOR -[id number] [facility] 2022-05-24 2022-05-24 Outpatient YASMEEN ROMERO, [facility] [id number] [place] 11:00:00 11:00:00 MAYNOR -[id number] [facility] 2022-05-21 2022-05-21 Outpatient YASMEEN ROMERO [facility] [id number] [place] 11:00:00 11:00:00 MAYNOR -[id number] [facility] 2022-05-20 2022-05-20 Outpatient YASMEEN KHANNA, [facility] [id number] [place] 08:01:00 08:01:00 NAHUN -[id number] [facility] 2022-05-19 2022-05-19 Orders Dejah, 1.2.840.1 [id number] 2099 [id number] Methodi 00:00:00 00:00:00 Only Rich 11226.1.[address] 3.430.2.7 Hospit a .3.085113 l .8 2022-05-19 2022-05-19 OFFICE [facility] [id number] Co mmon 00:00:00 00:00:00 VISIT NEW [facility] PT LEVEL 3 - [facility] 2022-05-19 2022-05-19 Orders Dejah, 1.2.840.1 [id number] 2099 [id number] Methodi 00:00:00 00:00:00 Only Rich 20932.1.[address] 3.430.2.7 Hospit a .3.653548 l .8 2022-05-18 2022-05-18 Emergency ER JOEL, [facility] [id number] [place] 19:04:00 21:55:00 BRENDA -[id number] [facility] 2022-04-30 2022-04-30 Emergency ER GUME, [facility] [id number] [place] 14:49:00 15:34:00 JASON -[id number] [facility] 2022-04-25 2022-04-25 Emergency ER JIMMY, [facility] [id number] [place] 14:10:00 14:43:00 RADHA -[id number] [facility] 2022-04-21 2022-04-21 Emergency ER JACLYN, [facility] [id number] [place] 08:47:00 10:02:00 SHI -[id number] [facility] 2022-04-19 2022-04-19 Office Wood, 1.2.840.1 [id number] Methodi 10:20:00 11:30:20 Visit Maynor LynchJuan José 25082.1.1 837 s t 3.430.2.7 Hospit a .3.914554 l .8 2022-04-19 2022-04-19 Office Reid, 1.2.840.1 [id number] 064995 0328 Methodi 10:20:00 11:30:20 Visit Maynor LynchJuan José 67955.1.1 837 s t 3.430.2.7 Hospit a .3.820230 l .8 2022-04-19 2022-04-19 Travel 1.2.840.1 1.2.615.232 2982 811887 Methodi 00:00:00 00:00:[address] 3.430.2.7 0.2.7.3.698 Ho spita .3.375516 084.8 l .8 2022-04-19 2022-04-19 Travel 1.2.840.1 1.2.610.479 7866 257883 Methodi 00:00:00 00:00:[address] 3.430.2.7 0.2.7.3.698 Ho spita .3.375865 084.8 l .8 2022-04-16 2022-04-16 Emergency ER MARQUEZ, [facility] [id number] [place] 08:42:00 11:50:00 RADHA -[id number] [facility] 2022-04-01 2022-04-01 Outpatient Zuniga_Sonja [facility] [id number]- [id number] [place] 00:00:00 00:00:00 22 Medical Group 2022-04-01 2022-04-01 Orders Javai, 1.2.840.1 [id number] 2099 [id number] Methodi 00:00:00 00:00:00 Only Rich 86006.1.[address] 3.430.2.7 Hospit a .3.821202 l .8 2022-04-01 2022-04-01 Orders Mariferi, 1.2.840.1 [id number] 2099 [id number] Methodi 00:00:00 00:00:00 Only Rich 59282.1.[address] 3.430.2.7 Hospit a .3.789437 l .8 2022-03-19 2022-03-19 Office Mariferi, 1.2.840.1 [id number] 2099 [id number] Methodi 14:20:00 14:33:59 Visit Rich 45180.1.[address] 3.430.2.7 Hospit a .3.653940 l .8 2022-03-19 2022-03-19 Office Jeani, 1.2.840.1 [id number] [id number] Methodi 14:20:00 14:33:59 Visit Rich 36455.1.[address] 3.430.2.7 Hospit a .3.501014 l .8 2022-03-19 2022-03-19 Travel 1.2.840.1 1.2.209.316 5678 883201 Methodi 00:00:00 00:00:[address] 3.430.2.7 0.2.7.3.698 Ho spita .3.824034 084.8 l .8 2022-03-19 2022-03-19 Travel 1.2.840.1 1.2.973.863 5825 154126 Methodi 00:00:00 00:00:[address] 3.430.2.7 0.2.7.3.698 Ho spita .3.631753 084.8 l .8 2022-03-09 2022-03-09 Outpatient Duarte_Sundar [facility] [place] [id number] -[id number] [place] 00:00:00 00:00:00 0830 Medical Group 2022-03-09 2022-03-09 Kia [facility] [place] - [id number] [place] 00:00:00 00:00:00 Discovery perry Simpson PA-C: [address] [facility] - [address], [place] [address] , Ph. 2022-03-03 2022-03-03 Telephone [facility], 1.2.840.1 [id number] 2099 [id number] Methodi 00:00:00 00:00:[address] 3.430.2.7 Hospit a .3.359738 l .8 2022-03-03 2022-03-03 Telephone [facility], 1.2.840.1 [id number] 2099 [id number] Methodi 00:00:00 00:00:[address] 3.430.2.7 Hospit a .3.097216 l .8 2022-03-02 2022-03-02 [facility] 1.2.840.1 [id number] 26461 Methodi 05:56:00 11:56:00 Encounter Maynor Sánchez 19350.1.[address] 3.430.2.7 Hospit a .3.420529 l .8 2022-03-02 2022-03-02 [facility], 1.2.840.1 [id number] Methodi 05:56:00 11:56:00 Encounter Maynor Sánchez 41336.1.[address] 3.430.2.7 Hospit a .3.955275 l .8 2022-03-02 2022-03-02 Anesthesia Jose Duvalliana Calvin. 1.2.840.1 10 [id number] Methodi 07:29:00 09:55:00 Event Anna Adair 44485.1.[address] 3.430.2.7 Hospit a .3.235836 l .8 2022-03-02 2022-03-02 Anesthesia Alfreda Duvall A. 1.2.840.1 10 [id number] Methodi 07:29:00 09:55:00 Event Anna Adair 42108.1.[address] 3.430.2.7 Hospit a .3.848483 l .8 2022-03-02 2022-03-02 [facility] [place], 1.2.840.1 [id number] 208073 6057 Methodi 07:30:00 09:50:00 Maynor Sánchez 14261.1.1 735 s t 3.430.2.7 Hospit a .3.653689 l .8 2022-03-02 2022-03-02 [facility] [place], 1.2.840.1 [id number] 652803 8947 Methodi 07:30:00 09:50:00 Maynor Sánchez 20643.1.1 735 s t 3.430.2.7 Hospit a .3.313862 l .8 2022-03-02 2022-03-02 Telephone Dejah, 1.2.840.1 [id number] 21 [id number] Methodi 00:00:00 00:00:[address] 3.430.2.7 Hospit a .3.872844 l .8 2022-03-02 2022-03-02 Telephone Dejah 1.2.840.1 [id number] 21 [id number] Methodi 00:00:00 00:00:[address] 3.430.2.7 Hospit a .3.414564 l .8 2022-03-01 2022-03-01 [facility], 1.2.840.1 [id number] 98222 Methodi 12:18:26 23:59:00 Encounter Maynor Sánchez 86171.1.[address] 3.430.2.7 Hospit a .3.796488 l .8 2022-03-01 2022-03-01 [facility], 1.2.840.1 [id number] Methodi 12:18:26 23:59:00 Encounter Maynor Sánchez 19378.1.[address] 3.430.2.7 Hospit a .3.927055 l .8 2022-03-01 2022-03-01 [facility]1 [id number] 477 [id number] Methodi 09:30:00 10:30:00 ion Maynor Sánchez 38556.1.1 034 s t Testing 3.430.2.7 Hospit a .3.900673 l .8 2022-03-01 2022-03-01 [facility] 1.2.840.1 [id number] 738 [id number] Methodi 09:30:00 10:30:00 ion Maynor Sánchez 33095.1.1 034 s t Testing 3.430.2.7 Hospit a .3.490983 l .8 2022-03-01 2022-03-01 Telephone [place], 1.2.840.1 [id number] 21 [id number] Methodi 00:00:00 00:00:[address] 3.430.2.7 Hospit a .3.511472 l .8 2022-03-01 2022-03-01 Travel 1.2.840.1 1.2.074.512 1363 243532 Methodi 00:00:00 00:00:[address] 3.430.2.7 0.2.7.3.698 Ho spita .3.416022 084.8 l .8 2022-03-01 2022-03-01 Telephone [place], 1.2.840.1 [id number] 21 [id number] Methodi 00:00:00 00:00:00 Micaela Santa [address]353.1.[address] 3.430.2.7 Hospit a .3.345494 l .8 2022-03-01 2022-03-01 Travel 1.2.840.1 1.2.770.918 4361 551760 Methodi 00:00:00 00:00:[address] 3.430.2.7 0.2.7.3.698 Ho spita .3.818854 084.8 l .8 2022-02-26 2022-02-26 Telephone [place], 1.2.840.1 [id number] [id number] Methodi 00:00:00 00:00:00 Maynor Sánchez 55449.1.1 279 s t 3.430.2.7 Hospit a .3.971438 l .8 2022-02-26 2022-02-26 Travel 1.2.840.1 1.2.268.370 9220 473156 Methodi 00:00:00 00:00:[address] 3.430.2.7 0.2.7.3.698 Ho spita .3.474214 084.8 l .8 2022-02-26 2022-02-26 Telephone [place], 1.2.840.1 [id number] Methodi 00:00:00 00:00:00 Maynor Sánchez 01569.1.1 279 s t 3.430.2.7 Hospit a .3.201607 l .8 2022-02-26 2022-02-26 Travel 1.2.840.1 1.2.212.935 4804 842758 Methodi 00:00:00 00:00:[address] 3.430.2.7 0.2.7.3.698 Ho spita .3.363266 084.8 l .8 2022-02-24 2022-02-25 Emergency [place] 1.2.840.1 1041 [id number] [id number] Methodi 15:25:00 19:45:00 Basilio Dialol 65897.1.[address] 3.430.2.7 Hospit a .3.962605 l .8 2022-02-24 2022-02-25 Emergency [facility] [place] 1.2.840.1 1041 [id number] [id number] Methodi 15:25:00 19:45:00 Basilio Diallo 25[address].1.[address] 3.430.2.7 Hospit a .3.322803 l .8 2022-02-25 2022-02-25 Transcjhon Romero, 1.2.840.1 [id number] 978 [id number] Methodi 00:00:00 00:00:00 Orders Maynor Sánchez 27349.1.1 241 s t 3.430.2.7 Hospit a .3.165511 l .8 2022-02-25 2022-02-25 Orders Dejah, 1.2.840.1 [id number] 2099 [id number] Methodi 00:00:00 00:00:00 Only Rich 48458.1.[address] 3.430.2.7 Hospit a .3.533690 l .8 2022-02-25 2022[facility] 1.2.840.1 [id number] 517 [id number] Methodi 00:00:00 00:00:00 Orders Maynor Sánchez 21185.1.1 241 s t 3.430.2.7 Hospit a .3.781454 l .8 2022-02-25 2022-02-25 Orders Dejah, 1.2.840.1 [id number] 2099 722084 Methodi 00:00:00 00:00:00 Only Rich 29180.1.[address] 3.430.2.7 Hospit a .3.076564 l .8 2022-02-24 2022-02-24 [facility] Reid, 1.2.840.1 [id number] 86839 20991 Methodi 18:39:58 23:59:00 Encounter Maynor Sánchez 17635.1.[address] 3.430.2.7 Hospit a .3.104264 l .8 2022-02-24 2022-02-24 [facility], 1.2.840.1 [id number] 05619 Methodi 18:39:58 23:59:00 Encounter Maynor Sánchez 35502.1.[address] 3.430.2.7 Hospit a .3.446414 l .8 2022-02-24 2022-02-24 [facility], 1.2.840.1 [id number] Methodi 18:39:26 23:59:00 Encounter Maynor Pedraza50.1.[address] 3.430.2.7 Hospit a .3.739036 l .8 2022-02-24 2022-02-24 [facility], 1.2.840.1 [id number] Methodi 18:39:26 23:59:00 Encounter Maynor Sánchez 86561.1.[address] 3.430.2.7 Hospit a .3.288037 l .8 2022-02-24 2022-02-24 [facility], 1.2.840.1 [id number] 141389 4145 Methodi 00:00:00 00:00:00 Only Maynor Sánchez 71934.1.1 790 s t 3.430.2.7 Hospit a .3.252557 l .8 2022-02-24 2022-02-24 Travel 1.2.840.1 1.2.288.937 6246 162795 Methodi 00:00:00 00:00:[address] 3.430.2.7 0.2.7.3.698 Ho spita .3.433296 084.8 l .8 2022-02-24 2022-02-24 [facility], 1.2.840.1 [id number] 065537 7201 Methodi 00:00:00 00:00:00 Only Maynor Sánchez 26176.1.1 790 s t 3.430.2.7 Hospit a .3.164339 l .8 2022-02-24 2022-02-24 Travel 1.2.840.1 1.2.274.475 9167 344069 Methodi 00:00:00 00:00:[address] 3.430.2.7 0.2.7.3.698 Ho spita .3.784302 084.8 l .8 2022-01-26 2022-01-26 Outpatient SANDIEHERNÁN [facility] 909 [place] 12:18:00 12:18:00 _DOREEN 0719 [facility] 2021-12-18 2021-12-18 [facility] Reid, 1.2.840.1 [id number] 269566 9039 Methodi 10:20:00 11:32:26 Visit Maynor Sánchez 90174.1.1 071 s t 3.430.2.7 Hospit a .3.216876 l .8 2021-12-18 2021-12-18 [facility], 1.2.840.1 [id number] 840222 2213 Methodi 10:20:00 11:32:26 Visit Maynor Sánchez 61691.1.1 071 s t 3.430.2.7 Hospit a .3.117988 l .8 2021-12-18 2021-12-18 Outpatient [facility] [id number] [place] 00:00:00 00:00:00 MAYNOR [address] 2021-12-18 2021-12-18 Travel 1.2.840.1 1.2.526.549 5807 319198 Methodi 00:00:00 00:00:[address] 3.430.2.7 0.2.7.3.698 Ho spita .3.389189 084.8 l .8 2021-12-18 2021-12-18 Outpatient [facility] [id number] 971 [facility] 00:00:00 00:00:00 MAYNOR [address] 2021-12-18 2021-12-18 Travel 1.2.840.1 1.2.158.866 6391 520851 Methodi 00:00:00 00:00:[address] 3.430.2.7 0.2.7.3.698 Ho spita .3.374295 084.8 l .8 2021-11-06 2021-11-06 Outpatient Hawkins_M [facility] [id number] [place] 12:33:00 12:33:00 0502 [facility] 2021-11-06 2021-11-06 Outpatient Hawkins_M [facility] [id number] [place] 00:00:00 00:00:00 0429 [facility] 2021-11-06 2021-11-06 Susan [facility] [place] - [id number] M [place] 00:00:00 00:00:00 Aracelis [facility] DISTRIBUTION COORDINATOR: [address] [address] , Ph. 2021-11-05 2021-11-05 Outpatient Hawkins_M [facility] [id number] [place] 04:51:00 04:51:00 0428 [facility] 2021-09-14 2021-09-14 Outpatient Koudela_A [facility] [id number] [place] 12:39:00 12:39:00 0307 Medical Group 2021-09-14 2021-09-14 Travel 1.2.840.1 [id number] [id number] Methodi 00:00:00 00:00:[address] 3.430.2.7 0.2.7.3.698 Ho spita .3.276137 084.8 l .8 2021-09-14 2021-09-14 Kia [facility] [place] - [id number] [place] 00:00:00 00:00:00 Discovery perry Simpson PA-C: [facility] [address] [address] , Ph. 2021-09-14 2021-09-14 Travel 1.2.840.1 [id number] [id number] Methodi 00:00:00 00:00:[address] 3.430.2.7 0.2.7.3.698 Ho spita .3.537698 084.8 l .8 2021-08-10 2021-08-10 [place] [id number] [place] 11:36:00 11:36:00 0131 [facility] 2021-08-10 2021-08-10 [place] [id number] [place] 11:36:00 11:36:00 0211 Medical Group 2021-05-04 2021-05-04 [place] [id number] 2020 [place] 10:22:00 10:22:00 1220 Medical Group 2021-03-26 2021-03-26 [place] [id number] 2020 [place] 10:53:00 10:53:00 0916 Medical Group 2021-03-26 2021-03-26 Ronnell MM [place] - [id number] [place] 00:00:00 00:00:00 Micky Lozano Medical Medical MD: [address] [facility] [address], [place] [address] , Ph. 2021-03-10 2021-03-10 [place] [id number]- 2020 [place] 04:23:00 04:23:00 0831 Medical Group 2021-03-10 2021-03-10 Ronnell MM [place] - [id number] [place] 00:00:00 00:00:00 Aracelis Klein Medical MD: [address] [facility] [address], [place] [address] , Ph. 2021-02-18 2021-02-18 [place] [id number]- 2020 [place] 10:58:00 10:58:00 0811 [facility] 2021-02-13 2021-02-13 [place] [id number]- 2020 [place] 11:36:00 11:36:00 0806 [facility] 2021-02-11 2021-02-11 [place] [id number]- 2020 [place] 04:11:00 04:11:00 0804 [facility] 2021-01-02 2021-01-02 [place] [id number]- 2020 [place] 11:03:00 11:03:00 0625 [facility] 2021-01-02 2021-01-02 [place] [id number]- 2020 [place] 11:03:00 11:03:00 0626 Medical Group 2021-01-02 2021-01-02 Radha [facility] [place] - [id number] [place] 00:00:00 00:00:00 Discovery perry Diaz PATROL JUDGE-C: 600 [facility] [address] , Ph. 2020-07-15 2020-07-15 [place] [id number]- 2020 [place] 12:50:00 12:50:00 0105 Medical Group 2020-07-15 2020-07-15 [place] [id number] 2020 [place] 12:50:00 12:50:00 0111 [facility] 2020-07-15 2020-07-15 Tyson [facility] [place] - [id number] [place] 00:00:00 00:00:00 Discovery perry Munoz MD: [address] [place] [address] [address], [place] [address] , Ph. 2020-07-14 2020-07-14 Outpatient Zuniga_F MMG MMG [id number] [place] 04:30:00 04:30:00 0104 [facility] 2020-07-14 2020-07-14 Ronnell [facility] [place] - [id number] [place] 00:00:00 00:00:00 Aracelis Klein Medical MD: [address] [address], [place] [address] , Ph. 2020-07-10 2020-07-10 Outpatient Zuniga_F MMG MMG [id number] [place] 10:29:00 10:29:00 1231 [facility] 2020-02-26 2020-02-26 Outpatient Zuniga_F MMG MMG [id number] [place] 12:39:00 12:39:00 1229 [facility] 2020-02-26 2020-02-26 Outpatient Zuniga_F MMG MMG [id number] [place] 12:39:00 12:39:00 [facility] 2020-01-30 2020-01-30 Outpatient Zuniga_F [facility] MMG [id number] [place] 08:08:00 08:08:00 [facility] 2020-01-30 2020-01-30 [facility] [facility] [place] - [id number] [place] 00:00:00 00:00:00 Aracelis Klein [facility] MD: [address] [place] [address], [place] [address] , Ph. 2020-01-29 2020-01-29 Outpatient Raju_P MMG MMG [id number] [place] 04:40:00 04:40:00 [facility] 2019-11-06 2019-11-06 Outpatient Raju_P MMG MMG [id number] [place] 03:29:00 03:29:00 [facility] 2019-11-06 2019-11-06 Outpatient Raju_P MMG MMG [id number] [place] 03:29:00 03:29:00 [facility] Results Test Description Test Time Test Comments Results Result Comments Source POC glucose 2022-03-02 11:47:00 Test Item Value Reference Range Interpretation Comme nts POC glucose (test code = 103 mg/dL 65-99 H Ope rator Name: Nba Gutierrezdaisyin 45177-1) [facility] ID: [id number]: RN Notified Lab Interpretation (test code = Abnormal 49643-5) [facility]2022-08-23 11:47:00 Test Item Value Reference Range Interpretation Comments POC glucose (test code = 103 mg/dL 65-99 H Ope rator Name: [id number]) Esmail Quratula in [facility] ID: [id number] able: RN Notified Lab Interpretation (test Abnormal code = 37644-3) [facility]2022-08-23 11:47:00 Test Item Value Reference Range Interpretation Comments POC glucose (test code = 103 mg/dL 65-99 H Ope rator Name: [id number]) Esmcarito Quratula in [facility] ID: [id number] able: RN Notified Lab Interpretation (test Abnormal code = 16723-8) [facility]2022-08-23 11:47:00 Test Item Value Reference Range Interpretation Comments POC glucose (test code = 103 mg/dL 65-99 H Ope rator Name: [id number]) Esmcarito Quratula in [facility] ID: [id number] able: RN Notified Lab Interpretation (test Abnormal code = 64456-5) [facility]2022-08-23 11:47:00 Test Item Value Reference Range Interpretation Comments POC glucose (test code = 103 mg/dL 65-99 H Ope rator Name: 65961-4) Esmail Quratula in [facility] ID: [id number] able: RN Notified Lab Interpretation (test Abnormal code = 54455-8) [facility]2022-08-23 11:47:00 Test Item Value Reference Range Interpretation Comments POC glucose (test code = 103 mg/dL 65-99 H Ope rator Name: [id number]) Esmail Quratula in [facility] ID: [id number] able: RN Notified Lab Interpretation (test Abnormal code = 66336-9) [facility]2022-08-23 11:47:00 Test Item Value Reference Range Interpretation Comments POC glucose (test code = 103 mg/dL 65-99 H Ope rator Name: 66983-0) Esmail Quratula in [facility] ID: [id number] able: RN Notified Lab Interpretation (test Abnormal code = 35784-3) [facility]2022-08-23 11:47:00 Test Item Value Reference Range Interpretation Comments POC glucose (test code = 103 mg/dL 65-99 H Ope rator Name: [id number]) Esmail Quratula in [facility] ID: [id number] able: RN Notified Lab Interpretation (test Abnormal code = 08918-9) [facility]2022-08-23 11:47:00 Test Item Value Reference Range Interpretation Comments POC glucose (test code = 103 mg/dL 65-99 H Ope rator Name: 98908-8) Esmail Quratula in [facility] ID: [id number] able: RN Notified Lab Interpretation (test Abnormal code = 11602-0) [facility]2022-08-23 11:47:00 Test Item Value Reference Range Interpretation Comments POC glucose (test code = 103 mg/dL 65-99 H Ope rator Name: 43966-3) Esmail Quratula in [facility] ID: [id number] able: RN Notified Lab Interpretation (test Abnormal code = 33199-0) [facility]2022-08-23 11:47:00 Test Item Value Reference Range Interpretation Comments POC glucose (test code = 103 mg/dL 65-99 H Ope rator Name: 17294-1) Esmail Quratula in [facility] ID: [id number] able: RN Notified Lab Interpretation (test Abnormal code = 73376-5) [facility]2022-08-23 11:47:00 Test Item Value Reference Range Interpretation Comments POC glucose (test code = 103 mg/dL 65-99 H Ope rator Name: 24057-5) Esmail Quratula in [facility] ID: [id number] able: RN Notified Lab Interpretation (test Abnormal code = 34537-5) [facility] Pre/Post [id number] 20:29:23 Test Item Value Reference Range Interpretation Comments Ventricular rate (test code = 253) Atrial rate (test code = 255) NE interval (test code = 266) QRSD interval [...] Emery MD (2064) on 03/01/2022 3:29:18 PM [facility] Pre/Post [id number] 20:29:23 Test Item Value Reference Range Interpretation Comments Ventricular rate (test code = 253) Atrial rate (test code = 255) NE interval (test code = 266) QRSD interval [...] Emery MD (2064) on 03/01/2022 3:29:18 PM [facility] Pre/Post [id number] 20:29:23 Test Item Value Reference Range Interpretation Comments Ventricular rate (test code = 253) Atrial rate (test code = 255) NE interval (test code = 266) QRSD interval [...] Emery MD (2064) on 03/01/2022 3:29:18 PM [facility] Pre/Post [id number] 20:29:23 Test Item Value Reference Range Interpretation Comments Ventricular rate (test code = 253) Atrial rate (test code = 255) NE interval (test code = 266) QRSD interval [...] Emery MD (2064) on 03/01/2022 3:29:18 PM [facility] Pre/Post [id number] 20:29:23 Test Item Value Reference Range Interpretation Comments Ventricular rate (test code = 253) Atrial rate (test code = 255) NE interval (test code = 266) QRSD interval [...] Emery MD (2064) on 03/01/2022 3:29:18 PM [facility] Pre/Post [id number] 20:29:23 Test Item Value Reference Range Interpretation Comments Ventricular rate (test code = 253) Atrial rate (test code = 255) NE interval (test code = 266) QRSD interval [...] Emery MD (2064) on 03/01/2022 3:29:18 PM [facility] Pre/Post [id number] 20:29:23 Test Item Value Reference Range Interpretation Comments Ventricular rate (test code = 253) Atrial rate (test code = 255) NE interval (test code = 266) QRSD interval [...] Emery MD (2064) on 03/01/2022 3:29:18 PM [facility] Pre/Post [id number] 20:29:23 Test Item Value Reference Range Interpretation Comments Ventricular rate (test code = 253) Atrial rate (test code = 255) NE interval (test code = 266) QRSD interval [...] Emery MD (2064) on 03/01/2022 3:29:18 PM [facility] Pre/Post [id number] 20:29:23 Test Item Value Reference Range Interpretation Comments Ventricular rate (test code = 253) Atrial rate (test code = 255) NE interval (test code = 266) QRSD interval [...] Emery MD (2064) on 03/01/2022 3:29:18 PM [facility] Pre/Post [id number] 20:29:23 Test Item Value Reference Range Interpretation Comments Ventricular rate (test code = 253) Atrial rate (test code = 255) NE interval (test code = 266) QRSD interval [...] Emery MD (2064) on 03/01/2022 3:29:18 PM [facility] Pre/Post [id number] 20:29:23 Test Item Value Reference Range Interpretation Comments Ventricular rate (test code = 253) Atrial rate (test code = 255) NE interval (test code = 266) QRSD interval [...] Emery MD (2064) on 03/01/2022 3:29:18 PM [facility] Pre/Post [id number] 20:29:23 Test Item Value Reference Range Interpretation Comments Ventricular rate (test code = 253) Atrial rate (test code = 255) NE interval (test code = 266) QRSD interval [...] Emery MD (2064) on 03/01/2022 3:29:18 [facility] [Presence] in Respiratory specimen by TENZIN with probe [id number] 18:27:20 Test Item Value Reference Range Interpretation Comments SARS-CoV-2 (COVID-19) RNA Not detected [Presence] in Respiratory specimen by TENZIN with probe detection (test code = 47937-1) Whether patient is employed in a Unknown healthcare setting (test code = 71856-8) Whether the patient has symptoms Unknown related to condition of interest (test code = 79246-6) Whether the patient was Unknown hospitalized for condition of interest (test code = 99052-7) Whether the patient was admitted Unknown to intensive care unit (ICU) for condition of interest (test code = 55720-8) Whether patient resides in a Unknown congregate care setting (test code = 60362-1) status (test code = Unknown 56442-8) Date and time of symptom onset Unknown (test code = 32308-5) [facility] RNA [Presence] in Respiratory specimen by TENZIN with probe [id number] 01:00:31 Test Item Value Reference Range Interpretation Comments SARS-CoV-2 (COVID-19) RNA Not detected [Presence] in Respiratory specimen by TENZIN with probe detection (test code = 82785-8) Whether patient is employed in a Unknown healthcare setting (test code = 42704-3) Whether the patient has symptoms Unknown related to condition of interest (test code = 92721-4) Whether the patient was Unknown hospitalized for condition of interest (test code = 03965-7) Whether the patient was admitted Unknown to intensive care unit (ICU) for condition of interest (test code = 06214-2) Whether patient resides in a Unknown congregate care setting (test code = 76266-6) status (test code = Unknown 80577-2) Date and time of symptom onset Unknown (test code = 93376-8) [facility] SARS CoV + SARS CoV 2 Ag panel, [place], upper respiratory [id number] 10:40:00 Test Item Value Reference Range Interpretation Comments RAPID SARS COV (test code = RAPID negative SARS COV) RAPID FLU A (test code = RAPID FLU negative A) RAPID FLU B (test code = RAPID FLU negative B) [facility] - Serum or [id number] 06:34:00 Test Item Value Reference Range Interpretation Comments cholesterol level (test code = 169 mg/dL 150-200 cholesterol level) triglycerides level (test code = 93 mg/dL <150 triglycerides level) HDL cholesterol (test code = HDL 52 mg/dL >55 L cholesterol) LDL cholesterol direct (test code = 108 mg/dL <100 H LDL cholesterol direct) cholesterol risk ratio (test code = 3.250 cholesterol risk ratio) [facility] [Mass/volume] in [id number] 00:00:00 Test Item Value Reference Range Interpretation Comments Hemoglobin A1c [Mass/volume] in Blood 5.3 % 4.0-6.0 (test code = 86053-1) [facility]Units/volume] in Serum or [id number] 00:00:00 Test Item Value Reference Range Interpretation Comments Thyrotropin [Units/volume] in 0.44 uIU/mL 0.36-3.74 Serum or Plasma (test code = 3016-3) [facility]
[2022-06-05] MEDS ORDERED: Phenylephrine HCl 10 MG/ML 1 ML VIAL ONE (17:41)
--- NOTE | 2022-06-05 18:23 | EDPHYS ---
Physician Documentation [facility] Name: Francesco Avelar Age: 26 yrs Sex: Male : 1995 Arrival Date: 06/05/2022 Time: 17:21 Bed 24 Private MD: ED Physician Baljeet Garsia HPI: 06/05 17:31 This 26 yrs old Male presents to ER via Ambulatory with complaints of jmm Prolonged Erection H/O Priapism. 17:31 The patient presents with Penile pain. This is a 26-year-old male with history of jmm asthma, bipolar, ADHD, previous priapism is the presents emerged department with an erection that began earlier today. Patient has taken 5 doses of terbutaline without relief.. Historical: - Allergies: 17:37 Imitrex; jl7 - Home Meds: 17:37 terbutaline 2.5 mg Oral tab [Active]; jl7 - PMHx: 17:37 Asthma; priapism; ADHD; Bipolar disorder; jl7 - PSHx: 17:37 L5 S1 laminectomy; jl7 - Immunization history:: Adult Immunizations up to date. - Social history:: Smoking status: Patient reports the use of cigarette tobacco products. ROS: 17:31 Constitutional: Negative for fever, chills, and weight loss, Cardiovascular: Negative jmm for chest pain, palpitations, and edema, Respiratory: Negative for shortness of breath, cough, wheezing, and pleuritic chest pain. 17:31 : Positive for penile pain. 17:31 All other systems are negative. Exam: 17:31 Constitutional: This is a well developed, well nourished patient who is awake, alert, jmm and in no acute distress. Head/Face: atraumatic. Eyes: EOMI, no conjunctival erythema appreciated ENT: Moist Mucus Membranes Neck: Trachea midline, Supple Chest/axilla: Normal chest wall appearance and motion. Cardiovascular: Regular rate and rhythm. No edema appreciated Respiratory: Normal respirations, no respiratory distress appreciated Abdomen/GI: Non distended 17:31 : Priapism noted. 17:31 Musculoskeletal/extremity: ROM: intact in all extremities. 17:31 Skin: Appearance: Color: normal in color. 17:31 Neuro: Orientation: is normal, Mentation: is normal, Memory: is normal. 17:31 Psych: Behavior/mood is pleasant, cooperative. Vital Signs: 17:31 Temp 98.1; tp1 Procedures: 19:56 Performed Phenylephrine injection. 10 mg/mL of phenylephrine was diluted to 500 mcg/mL. jmm 0.5 mL of 500 mcg/mL of phenylephrine was injected at the 10 o'clock position at the base of the penis. Decreased tumescence was appreciated after 15 minutes. Patient states having complete relief. Patient tolerated this well. MDM: 17:31 Patient medically screened. jmm 18:21 Data reviewed: vital signs, nurses notes. Counseling: I had a detailed discussion with claudia the patient and/or guardian regarding: the historical points, exam findings, and any diagnostic results supporting the discharge/admit diagnosis, the need for outpatient follow up, to return to the emergency department if symptoms worsen or persist or if there are any questions or concerns that arise at home. Administered Medications: 18:28 Not Given (Physician Discretion): [place] (HYDROcodone-acetaminophen) 10 mg-325 mg 1 tabs tp1 PO once 18:34 Drug: Phenylephrine 0.5 mg {Note: administered by FAM wilkinson.} Route: IV; Rate: tp1 calculated rate; Site: Other; 18:35 Follow up: Response: Medication administered at discharge. tp1 Disposition: 06/06 07:58 Co-signature as Attending Physician, Baljeet Garsia DO I was immediately available on-site ms3 in the Emergency Department for consultation in the care of the patient. Disposition Summary: 06/05/22 18:22 Discharge Ordered Location: Home [facility] Condition: Stable m Diagnosis - Priapism, unspecified jmm Followup: jm - With: Minesh Vivas MD - When: 2 - 3 days - Reason: Recheck today's complaints, Continuance of care, Re-evaluation by your physician Discharge Instructions: - Discharge Summary Sheet [facility] - Priapism [facility] Forms: - Medication Reconciliation Form [facility] - Thank You Letter jmm - Antibiotic Education jmm - Prescription Opioid Use jm Signatures: Jose Wilkinson PA PA jmm Leal, Jahala RN RN jl7 Baljeet Garsia DO DO ms3 Polly Brown RN RN tp1
--- NOTE | 2022-06-05 18:23 | ER ---
Nurse's Notes [facility] Name: Francesco Avelar Age: 26 yrs Sex: Male : 1995 Arrival Date: 06/05/2022 Time: 17:21 Bed 24 Private MD: Diagnosis: Priapism, unspecified Presentation: 06/05 17:32 Chief complaint: Patient states: Prolonged erection since 1200, took five doses of 2.[address] Vivas is 's urologist. Symptoms resolved, reports continued pain. Coronavirus screen: At this time, the client does not indicate any symptoms associated with coronavirus-19. Ebola Screen: No symptoms or risks identified at this time. Initial Sepsis Screen: Does the patient meet any 2 criteria? No. Patient's initial sepsis screen is negative. Does the patient have a suspected source of infection? No. Patient's initial sepsis screen is negative. Risk Assessment: Do you want to hurt yourself or someone else? Patient reports no desire to harm self or others. Onset of symptoms was June 05, 2022 at 12:00. 17:32 Method Of Arrival: Ambulatory [facility] 17:32 Acuity: MCKENZIE 3 jl7 Triage Assessment: 17:37 General: Appears in no apparent distress. uncomfortable. jl7 Historical: - Allergies: 17:37 Imitrex; jl7 - Home Meds: 17:37 terbutaline 2.5 mg Oral tab [Active]; jl7 - PMHx: 17:37 Asthma; priapism; ADHD; Bipolar disorder; jl7 - PSHx: 17:37 L5 S1 laminectomy; jl7 - Immunization history:: Adult Immunizations up to date. - Social history:: Smoking status: Patient reports the use of cigarette tobacco products. Screenin:32 Abuse screen: Denies threats or abuse. Denies injuries from another. Nutritional tp1 screening: No deficits noted. Tuberculosis screening: No symptoms or risk factors identified. Fall Risk None identified. Assessment: 17:31 General: Appears in no apparent distress. comfortable, Behavior is calm, cooperative. tp1 Pain: Complains of pain in pelvis Pain does not radiate. Pain currently is 2 out of 10 on a pain scale. Quality of pain is described as sharp. Neuro: Level of Consciousness is awake, alert, obeys commands, Oriented to person, place, time, situation. Cardiovascular: Patient's skin is warm and dry. Respiratory: Airway is patent Respiratory effort is even, unlabored. GI: No signs and/or symptoms were reported involving the gastrointestinal system. : No signs and/or symptoms were reported regarding the genitourinary system. EENT: No signs and/or symptoms were reported regarding the EENT system. Derm: Skin is pink, warm \T\ dry. Musculoskeletal: Circulation, motion, and sensation intact. Vital Signs: 17:31 Temp 98.1; tp1 ED Course: 17:21 Patient arrived in ED. jj6 17:25 Jose Wilkinson PA is PHCP. [facility] 17:25 Baljeet Garsia DO is Attending Physician. [facility] 17:31 Polly Brown, SHELLEY is Primary Nurse. tp1 17:32 Patient has correct armband on for positive identification. Placed in gown. Bed in low tp1 position. Pulse ox on. NIBP on. 17:37 Triage completed. jl7 17:37 Arm band placed on right wrist. jl7 18:21 Minesh Vivas MD is Referral Physician. [facility] 18:35 No provider procedures requiring assistance completed. Patient did not have IV access tp1 during this emergency room visit. Administered Medications: 18:28 Not Given (Physician Discretion): [place] (HYDROcodone-acetaminophen) 10 mg-325 mg 1 tabs tp1 PO once 18:34 Drug: Phenylephrine 0.5 mg {Note: administered by FAM wilkinson.} Route: IV; Rate: tp1 calculated rate; Site: Other; 18:35 Follow up: Response: Medication administered at discharge. tp1 Medication: 18:35 VIS not applicable for this client. tp1 Outcome: 18:22 Discharge ordered by . [facility] 18:35 Discharged to home ambulatory. tp1 18:35 Condition: good 18:35 Discharge instructions given to patient, Instructed on discharge instructions, follow up and referral plans. Demonstrated understanding of instructions, follow-up care. 18:35 Patient left the ED. tp1 Signatures: Jose Wilkinson PA PA jmm Leal, Jahala, RN RN jl7 Lana Rodriges jj6 Polly Brown RN RN tp1
[2022-06-05 18:39] VITALS: TEMP 98.1
== END 2022-06-05 18:35 | disposition home or self-care (01) ==
LOC: ER 17:19
DX: N48.30 Priapism, unspecified (principal); Z88.8 Allergy status to other drugs, medicaments and biological substances
CPT/HCPCS: 96374; 99283; J2370

== ENCOUNTER 2022-09-25 19:34 | Emergency (ER) | payer BC, OTHER ==
--- OUTSIDE RECORDS SUMMARY | 2022-09-25 19:43 | XMS REPORT | Continuity of Care Document ---
:1995 Author Organization [facility] t Address [address] [facility] [place]. [address] [place] [address] Support Name Relationship Address Phone BALA CLARK Unavailable [address] [phone] [place] [address] GREGORY DUMONT Unavailable [address] [phone] [place] [address] PRISCILA MAGANA MD Emergency Provider [address] [place] [address] PHYSICIAN, NO Primary Care Physician Unavailable Unavailab CLAIR Art Next of Kin [address] [place] [address] MD PRISCILA MAGANA Emergency Provider [address] [place] [address] MD [facility] Primary Care Physician [address] [place] [address] MD CELSA MUNGUIA Emergency Provider [address] [place] [address] MD BARBARA VELAZQUEZ Emergency Provider [address] [place] [address] MD ARLET LUNSFORD Emergency Provider [address] [place] [address] DO ABRAHAM MCCRACKEN Admitting Provider [address] [place] [address] MD SHEILA RICO Emergency Provider [address] [phone] [place] [address] MD ALEXA TORRES Emergency Provider [address] [place] [address] MD KALPESH DUNAWAY Emergency Provider [address] [place] [address] Care Team Providers Name Role Phone Ronnell Diaz MD Primary Care Physician Ronnell Diaz Attending Clinician Unavailable NAHUN KHANNA Attending Clinician Unavailable MAYNOR ROMERO Attending Clinician Unavailable Tatiana Xavier MA Attending Clinician Unavailable Maynor Romero MD Attending Clinician Rich Salgado Attending Clinician Neymar Barron Attending Clinician Unavailable Ronnell Diaz Attending Clinician Unavailable ZakiyaF Attending Clinician Unavailable Kalpesh Dunaway Attending Clinician Unavailable Melecio Cox Attending Clinician Unavailable Arlet Lunsford Attending Clinician Unavailable Alexa Torres Attending Clinician Unavailable Chance Davis Attending Clinician Unavailable Duarte_Sundar Attending Clinician Unavailable Apolinar ROSA, Mallory Attending Clinician Unavailable Alfreda Duvall MD Attending Clinician Anna Leahy Attending Clinician Graeme SOUZA, Micaela Santa Attending Clinician Parish Chamorro MD Attending Clinician Basilio Diallo MD Attending Clinician ANDREIA_DOREEN Attending Clinician Unavailable Sheila Rico Attending Clinician Unavailable Berenice Attending Clinician Unavailable KIA SIMPSON Attending Clinician Unavailable Abraham Mccracken Attending Clinician Unavailable BARBARA VELAZQUEZ Attending Clinician Unavailable CELSA MUNGUIA Attending Clinician Unavailable ZunigaJuliaS Attending Clinician Unavailable PRISCILA MAGANA Attending Clinician Unavailable Jb Attending Clinician Unavailable KENNETH ASCENCIO Attending Clinician Unavailable SUNNY CURRY Attending Clinician Unavailable CEDRIC TURNER Attending Clinician Unavailable NUNO REED Attending Clinician Unavailable PARKER KENT Attending Clinician Unavailable SERGEY THAKKAR Attending Clinician Unavailable ZBIGNIEW DIAS Attending Clinician Unavailable Zuniga_F Admitting Clinician Unavailable Ronnell Diaz Admitting Clinician Unavailable Gloria Admitting Clinician Unavailable MAYNOR ROMERO Admitting Clinician Unavailable BASILIO DIALLO Admitting Clinician Unavailable JONA Admitting Clinician Unavailable Berenice Admitting Clinician Unavailable Abraham Mccracken Admitting Clinician Unavailable Zungracya_S Admitting Clinician Unavailable Denny_Chinyere Admitting Clinician Unavailable Payers Payer Name Policy Type Policy Number Effective Date Expiration Date S ource [place] [id number] 2014 (PPO) 00:00:00 [facility] [id number] 2019 [place] 00[place]00[place]00 ([place] [id number] [place]) [place] [facility] - [id number] [facility] Problems Condition Condition Condition Status Onset Resolution Last Treating Co mments Source Name Details Category Date Date Treatment Clinician Date Asthma Asthma Problem Active 2021-07 [facility]-20 [facility] 00:[facility]: Medical 00 Group Pancreatit Pancreatit Problem Active 2021-07 [facility] is is 2-16 da 00:00: Medical 00 Group Spinal Spinal Disease Active [facility] stenosis stenosis [address] [facility] of of 00:00: Hospita lumbosacra lumbosacra 00 l l region l region Left Left Disease Active Overview: Method i lumbar lumbar 8-[address] radiculiti radiculiti 00:00: g of this Hospita s s 00 note l might be different from the original. Added automatic ally from request for surgery [id number] Priapism Priapism Disease Active Metho di 8-17 [...] ents Source Name Type Date Date Clinician Dionhermanjose manuel Propensi Active GI 2020-07 VOMITING Meth joanna porras ty to Intolerance -15 st adverse 00:00: Hospita reaction 00 l s to drug Imitrex Allergy Active [facility] sumatrip sumatrip Active Unknown Commo n porras porras Spirit - [facility] Family History Family Member Diagnosis Comments Start Date Stop Date Source Natural father Doan's palsy [facility] Natural mother Fibromyalgia [facility] Social History Social Habit Start Date Stop Date Quantity Comments Source History of Current Smoker Common Spi rit - Tobacco Use [facility] Alcohol intake 2022-03-03 2022-03-03 Current drinker [facility] dist 00:00:00 00:00:00 of alcohol Hospital (finding) Tobacco use and 2022-03-01 2022-03-01 Smokeless tobacco Me [facility]od[facility] exposure 00:00:00 00:00:00 non-user Hospital Alcohol Comment 2022-03-01 2022-03-01 EVERY OTHER Methodis t 00:00:00 00:00:00 [facility] Sex Assigned At [birth year] [facility] 00:00[facility] 00:[facility]:00 Hospital Smoking Status Start Date Stop Date Source Light Tobacco Smoker [facility] Current Smoker 2022-05-19 00:00:00 Common Spiri t - [facility] Medications Ordered Filled Start Stop Current Ordering Indication Dosage Frequency Signature Comments Components Source Medication Medication Date Date Medication? Clinician (SIG) Name Name Terbutaline Terbutaline 2021-07 No Terbutalin Sulfate 2.5 Sulfate 2.5 07-19 e Sulfate MG MG 00:00: 2.5 MG 00 methylPREDN 2021- No Use as Met hodi [...] :00 instructio l mg tablet ns methylPREDN 2-0 2021- No Use as Met hodi ISolone 03-[address] (MEDROL 00:00: 04:59 by package Hos félix DOSEPAK) 4 00 :00 instructio l mg tablet ns methylPREDN 2-0 2021- No Use as Met hodi ISolone 03-[address] (MEDROL 00:00: 04:59 by package Hos félix DOSEPAK) 4 00 :00 instructio l mg tablet ns methylPREDN 2-0 2021- No Use as Met hodi ISolone 03-[address] (MEDROL 00:00: 04:59 by package Hos félix DOSEPAK) 4 00 :00 instructio l mg tablet ns methylPREDN 2-0 2021- No Use as Met hodi ISolone 03-[address] (MEDROL 00:00: 04:59 by package Hos félix DOSEPAK) 4 00 :00 instructio l mg tablet ns methylPREDN 2-0 2021- No Use as Met hodi ISolone 03-[address] (MEDROL 00:00: 04:59 by package Hos félix DOSEPAK) 4 00 :00 instructio l mg tablet ns methylPREDN 2-0 2021- No Use as Met hodi ISolone 03-[address] (MEDROL 00:00: 04:59 by package Hos félix DOSEPAK) 4 00 :00 instructio l mg tablet ns methylPREDN 2-0 2021- No Use as Met hodi ISolone 03-[address] (MEDROL 00:00: 04:59 by package Hos félix DOSEPAK) 4 00 :00 instructio l mg tablet ns methylPREDN 2-0 2- No Use as Met hodi ISolone 03-[address] (MEDROL 00:00: 04:59 by package Hos félix DOSEPAK) 4 00 :00 instructio l mg tablet ns methylPREDN 2022-0 2- No Use as Met hodi ISolone 03-19 [...] félix 10 by mouth l daily. levalbutero 0 Yes 2{puff} Q2D Inhale 2 Methodi l [...] 10 other day. l on inhaler budesonide- 202-0 Yes 2{puff} Q.5D Inhale 2 Methodi formoteroL [...] 10 total) by l mouth daily. hydrOXYzine 202-0 Yes 25mg QD Take 1 Meth joanna [...] félix 10 by mouth l daily. levalbutero 0 Yes 2{puff} Q2D Inhale 2 Methodi l (XOPENEX 8-[address] HFA) 45 11:57: every Hospita mcg/actuati 10 other day. l on inhaler acetaminoph 0 2021- No [id number] 1{tbl} Q6H Take 1 [facility] en-codeine 8-23 09-[address] (TYLENOL 00:00: 04:59 mouth Hospita WITH 00 :00 every 6 l CODEINE #3) (six) 300-30 mg hours as per tablet needed for moderate pain for up to 10 days .acute pain. acetaminoph 2022 No 1{tbl} Q6H Take 1 [facility] en-codeine 03-[address] (TYLENOL 00:00: 04:59 mouth Hospita WITH 00 :00 every 6 l CODEINE #3) (six) 300-30 mg hours as per tablet needed for moderate pain for up to 10 days .acute pain. acetaminoph No 1{tbl} Q6H Take 1 Methodi en-codeine [...] up to 10 days .acute pain. acetaminoph No 1{tbl} Q6H Take 1 Methodi en-codeine 03-[address] (TYLENOL 00:00: 04:59 mouth Hospita WITH 00 :00 every 6 l CODEINE #3) (six) 300-30 mg hours as per tablet needed for moderate pain for up to 10 days .acute pain. acetaminoph No 1{tbl} Q6H Take 1 Methodi en-codeine 03-[address] (TYLENOL 00:00: 04:59 mouth Hospita WITH 00 :00 every 6 l CODEINE #3) (six) 300-30 mg hours as per tablet needed for moderate pain for up to 10 days .acute pain. acetaminoph No 1{tbl} Q6H Take 1 Methodi en-codeine [...] up to 5 days .acute pain. traMADoL [id number] 50mg Q6H Take 1 Metho di (ULTRAM) [...] up to 5 days .acute pain. traMADoL [id number] 50mg Q6H Take 1 Metho di (ULTRAM) [...] up to 5 days .acute pain. traMADoL 2022-0 2022- [place] [id number] 50mg Q6H Take 1 Metho di (ULTRAM) 50 8-19 08-25 tablet (50 s t mg tablet 00:00: 04:59 mg total) Ho spita 00 :00 by mouth l every 6 (six) hours as needed for moderate pain for up to 5 days .acute pain. traMADoL 2021- No [id number] 50mg Q6H Take 1 Metho di (ULTRAM) 50 8-19 08-25 tablet (50 s t mg tablet 00:00: 04:59 mg total) Ho spita 00 :00 by mouth l every 6 (six) hours as needed for moderate pain for up to 5 days .acute pain. traMADoL 2021- [place] [id number] 50mg Q6H Take 1 Metho di (ULTRAM) 50 8-19 08-25 tablet (50 s t mg tablet 00:00: 04:59 mg total) Ho spita 00 :00 by mouth l every 6 (six) hours as needed for moderate pain for up to 5 days .acute pain. traMADoL 2021- No [id number] 50mg Q6H Take 1 Metho di (ULTRAM) 50 8-19 08-25 tablet (50 s t mg tablet 00:00: 04:59 mg total) Ho spita 00 :00 by mouth l every 6 (six) hours as needed for moderate pain for up to 5 [place] [id number] 50mg Q6H Take 1 Metho di (ULTRAM) [...] pain) for up to 7 days. ibuprofen 2-0 2022- No 600mg Q6H Take 1 Meth [...] syring MONTH 2021- No INJECT ONE [facility] [place] 5-18 08-17 (1) UNIT st 400 mg 00:00: 00:00 INTO THE Hospit a suspension, 00 :00 MUSCLE l extended ONCE A rel syring MONTH 2021- No INJECT ONE [facility] [place] 5-18 08-17 (1) UNIT st 400 mg 00:00: 00:00 INTO THE Hospit a suspension, 00 :00 MUSCLE l extended ONCE A rel syring MONTH 2021- No INJECT ONE [facility] [place] 5-18 17 (1) UNIT st 400 mg 00:00: 00:00 INTO THE Hospit a suspension, 00 :00 MUSCLE l extended ONCE A rel syring MONTH 2021- No INJECT ONE [facility] [place] 5-18 17 (1) UNIT st 400 mg 00:00: 00:00 INTO THE Hospit a suspension, 00 :00 MUSCLE l extended ONCE A rel syring MONTH 2021- No INJECT ONE [facility] [place] 517 (1) UNIT st 400 mg 00:00: 00:00 [...] No Xopenex [facility] buspirone buspirone No buspirone [facility] 10 mg 10 mg 10 mg da tablet TAKE tablet TAKE tablet Medical ONE (1) ONE (1) TAKE ONE Group TABLET BY TABLET BY (1) TABLET MOUTH TWICE MOUTH TWICE BY MOUTH A DAY A DAY TWICE A DAY buspirone 5 buspirone 5 No buspirone [facility] mg tablet mg tablet 5 mg da TAKE ONE TAKE ONE tablet Medic al (1) TABLET (1) TABLET TAKE ONE Group BY MOUTH BY MOUTH (1) TABLET TWICE A DAY TWICE A DAY BY MOUTH TWICE A DAY ciprofloxac ciprofloxac No ciprofloxa [facility] in 500 mg in 500 mg sharmila 500 mg da tablet TAKE tablet TAKE tablet Medical ONE (1) ONE (1) TAKE ONE Group TABLET(S) TABLET(S) (1) BY MOUTH BY MOUTH TABLET(S) TWICE A DAY TWICE A DAY BY MOUTH FOR FOR TWICE A INFECTION. INFECTION. DAY FOR INFECTION. gabapentin gabapentin No gabapentin [facility] 300 mg [...] A DAY A DAY TWICE A DAY metronidazo metronidazo No metronidaz [facility] le 500 mg le 500 mg ole 500 mg da tablet TAKE tablet TAKE tablet Medical ONE (1) ONE (1) TAKE ONE Group TABLET(S) TABLET(S) (1) BY MOUTH BY MOUTH TABLET(S) THREE TIMES THREE TIMES BY MOUTH A DAY FOR A DAY FOR THREE INFECTION. INFECTION. TIMES A DAY FOR INFECTION. ondansetron ondansetron No ondansetro [facility] HCl 4 mg HCl 4 mg n HCl 4 mg d a tablet TAKE tablet TAKE tablet Medical ONE (1) ONE (1) TAKE ONE Group TABLET(S) TABLET(S) (1) BY MOUTH BY MOUTH TABLET(S) EVERY SIX EVERY SIX BY MOUTH HOURS HOURS EVERY SIX NEEDED FOR NEEDED FOR HOURS NAUSEA AND NAUSEA AND NEEDED FOR VOMITING. VOMITING. NAUSEA AND VOMITING. pantoprazol pantoprazol No pantoprazo [facility] e 40 mg e 40 mg le 40 mg da tablet,ayana tablet,ayana tablet,del Medical yed release yed release ayed G roup TAKE ONE TAKE ONE release (1) (1) TAKE ONE TABLET(S) TABLET(S) (1) BY MOUTH BY MOUTH TABLET(S) ONCE A DAY ONCE A DAY BY MOUTH AT BEDTIME AT BEDTIME ONCE A DAY FOR FOR AT BEDTIME PANCREATITI PANCREATITI FOR S. S. PANCREATIT IS. Symbicort Symbicort No Symbicort [facility] terbutaline terbutaline No terbutalin [facility] 2.5 mg 2.5 mg e 2.5 mg da tablet TAKE tablet TAKE tablet Medical ONE (1) ONE (1) TAKE ONE Group TABLET TABLET (1) TABLET EVERY 30 EVERY 30 EVERY 30 MINUTES X 2 MINUTES X 2 MINUTES X DOSES MAX DOSES MAX 2 DOSES ORALLY ORALLY MAX ORALLY DIRECTED 30 DIRECTED 30 DAY(S). DAY(S). DIRECTED 30 DAY(S). tramadol 50 tramadol 50 No tramadol [facility] mg tablet mg tablet 50 mg da TAKE ONE TAKE ONE tablet Medic al (1) (1) TAKE ONE Group TABLET(S) TABLET(S) (1) BY MOUTH BY MOUTH TABLET(S) EVERY SIX EVERY SIX BY MOUTH HOURS HOURS EVERY SIX NEEDED FOR NEEDED FOR HOURS PAIN. MAX PAIN. MAX NEEDED FOR DAILY DOSE_ DAILY DOSE_ PAIN. MAX 4 4 DAILY TABLET(S). TABLET(S). DOSE_ 4 TABLET(S). Xopenex Xopenex No [facility]openex [facility] buspirone buspirone No buspirone [facility] 10 mg 10 mg 10 mg da tablet TAKE tablet TAKE tablet Medical ONE (1) ONE (1) TAKE ONE Group TABLET BY TABLET BY (1) TABLET MOUTH TWICE MOUTH TWICE BY MOUTH A DAY A DAY TWICE A DAY buspirone 5 buspirone 5 No buspirone [facility] mg tablet mg tablet 5 mg da TAKE ONE TAKE ONE tablet Medic al (1) TABLET (1) TABLET TAKE ONE Group BY MOUTH BY MOUTH (1) TABLET TWICE A DAY TWICE A DAY BY MOUTH TWICE A DAY hydroxyzine hydroxyzine No hydroxyzin [facility] HCl 25 [...] A DAY A DAY TWICE A DAY ondansetron ondansetron No ondansetro [facility] HCl 4 mg HCl 4 mg n HCl 4 mg d a tablet TAKE tablet TAKE tablet Medical ONE (1) ONE (1) TAKE ONE Group TABLET(S) TABLET(S) (1) BY MOUTH BY MOUTH TABLET(S) EVERY SIX EVERY SIX BY MOUTH HOURS HOURS EVERY SIX NEEDED FOR NEEDED FOR HOURS NAUSEA AND NAUSEA AND NEEDED FOR VOMITING. VOMITING. NAUSEA AND VOMITING. Protonix 40 Protonix 40 No 1 BID Protonix [facility] mg mg 40 mg da tablet,ayana tablet,ayana tablet,del Medical yed release yed release ayed Hannah roup Take 1 Take 1 release tablet tablet Take 1 twice a day twice a day tablet by oral by oral twice a route. route. day by oral route. Symbicort Symbicort No 2puff(s BID Symbicort [facility] 160 mcg-4.5 160 mcg-4.5 ) 160 d a mcg/actuati mcg/actuati mcg-4.5 Medical on HFA on HFA mcg/actuat Group aerosol aerosol ion HFA inhaler inhaler aerosol Inhale 2 Inhale 2 inhaler puffs twice puffs twice Inhale 2 a day by a day by puffs inhalation inhalation twice a route. route. day by inhalation route. terbutaline terbutaline No terbutalin [facility] 2.5 mg 2.5 mg e 2.5 mg da tablet TAKE tablet TAKE tablet Medical ONE (1) ONE (1) TAKE ONE Group TABLET TABLET (1) TABLET EVERY 30 EVERY 30 EVERY 30 MINUTES X 2 MINUTES X 2 MINUTES X DOSES MAX DOSES MAX 2 DOSES ORALLY ORALLY MAX ORALLY DIRECTED 30 DIRECTED 30 DAY(S). DAY(S). DIRECTED 30 DAY(S). tramadol 50 tramadol 50 No tramadol [facility] mg tablet mg tablet 50 mg da TAKE ONE TAKE ONE tablet Medic al (1) (1) TAKE ONE Group TABLET(S) TABLET(S) (1) BY MOUTH BY MOUTH TABLET(S) EVERY SIX EVERY SIX BY MOUTH HOURS HOURS EVERY SIX NEEDED FOR NEEDED FOR HOURS PAIN. MAX PAIN. MAX NEEDED FOR DAILY DOSE_ DAILY DOSE_ PAIN. MAX 4 4 DAILY TABLET(S). TABLET(S). DOSE_ 4 TABLET(S). Xopenex HFA Xopenex HFA No 2puff(s Q6H Xopenex [facility] 45 45 ) HFA 45 da mcg/actuati mcg/actuati mcg/actuat Medical on aerosol on aerosol ion Sumi up inhaler inhaler aerosol Inhale 2 Inhale 2 inhaler puffs every puffs every Inhale 2 6 hours by 6 hours by puffs inhalation inhalation every 6 route as route as hours by needed. needed. inhalation route as needed. Immunizations Ordered Immunization Filled Immunization Date Status Commen ts Source Name Name TACOS COVID-19 MRNA 2020-10-16 Completed Meth odist VACCINATION 00:00:00 [facility] PFIZER COVID-19 MRNA 2020-10-16 Completed Meth odist VACCINATION 00:00:00 [facility] PFIZER COVID-19 MRNA 2020-10-16 Completed Meth odist VACCINATION 00:00:00 [facility] PFIZER COVID-19 MRNA 2020-10-16 Completed Meth odist VACCINATION 00:00:00 [facility] PFIZER COVID-19 MRNA 2020-10-16 Completed Meth odist VACCINATION 00:00:00 [facility] PFIZER COVID-19 MRNA 2020-10-16 Completed Meth odist VACCINATION 00:00:00 [facility] PFIZER COVID-19 MRNA 2020-10-16 Completed Meth odist VACCINATION 00:00:00 [facility] PFIZER COVID-19 MRNA 2020-10-16 Completed Meth odist VACCINATION 00:00:00 [facility] PFIZER COVID-19 MRNA 2020-10-16 Completed Meth odist VACCINATION 00:00:00 [facility] PFIZER COVID-19 MRNA 2020-10-16 Completed Meth odist VACCINATION 00:00:00 [facility] PFIZER COVID-19 MRNA 2020-10-16 Completed Meth odist VACCINATION 00:00:00 [facility] PFIZER COVID-19 MRNA 2020-10-16 Completed Meth odist VACCINATION 00:00:00 [facility] PFIZER COVID-19 MRNA 2020-10-16 Completed Meth odist VACCINATION 00:00:00 [facility] PFIZER COVID-19 MRNA 2020-10-16 Completed Meth odist VACCINATION 00:00:00 [facility] PFIZER COVID-19 MRNA 2020-10-16 Completed Meth odist VACCINATION 00:00:00 [facility] PFIZER COVID-19 MRNA 2020-10-16 Completed Meth odist VACCINATION 00:00:00 [facility] PFIZER COVID-19 MRNA 2020-10-16 Completed Meth odist VACCINATION 00:00:00 [facility] PFIZER COVID-19 MRNA 2020-10-16 Completed Meth odist VACCINATION 00:00:00 [facility] PFIZER COVID-19 MRNA 2020-09-25 Completed Meth odist VACCINATION 00:00:00 [facility] PFIZER COVID-19 MRNA 2020-09-25 Completed Meth odist VACCINATION 00:00:00 [facility] PFIZER COVID-19 MRNA 2020-09-25 Completed Meth odist VACCINATION 00:00:00 [facility] PFIZER COVID-19 MRNA 2020-09-25 Completed Meth odist VACCINATION 00:00:00 [facility] PFIZER COVID-19 MRNA 2020-09-25 Completed Meth odist VACCINATION 00:00:00 [facility] PFIZER COVID-19 MRNA 2020-09-25 Completed Meth odist VACCINATION 00:00:00 [facility] PFIZER COVID-19 MRNA 2020-09-25 Completed Meth odist VACCINATION 00:00:00 [facility] PFIZER COVID-19 MRNA 2020-09-25 Completed Meth odist VACCINATION 00:00:00 [facility] PFIZER COVID-19 MRNA 2020-09-25 Completed Meth odist VACCINATION 00:00:00 [facility] PFIZER COVID-19 MRNA 2020-09-25 Completed Meth odist VACCINATION 00:00:00 [facility] PFIZER COVID-19 MRNA 2020-09-25 Completed Meth odist VACCINATION 00:00:00 [facility] PFIZER COVID-19 MRNA 2020-09-25 Completed Meth odist VACCINATION 00:00:00 [facility] PFIZER COVID-19 MRNA 2020-09-25 Completed Meth odist VACCINATION 00:00:00 [facility] PFIZER COVID-19 MRNA 2020-09-25 Completed Meth odist VACCINATION 00:00:00 [facility] PFIZER COVID-19 MRNA 2020-09-25 Completed Meth odist VACCINATION 00:00:00 [facility] PFIZER COVID-19 MRNA 2020-09-25 Completed Meth odist VACCINATION 00:00:00 [facility] PFIZER COVID-19 MRNA 2020-09-25 Completed Meth odist VACCINATION 00:00:00 [facility] PFIZER COVID-19 MRNA 2020-09-25 Completed Meth odist VACCINATION 00:00:00 Hospital Vital Signs Vital Name Observation Time Observation Value Comments Source BP Diastolic 2022-06-25 00:00:00 84 mm[Hg] [facility] Height 2022-06-25 00:00:00 71 [in_i] [facility] BMI (Body Mass 2022-06-25 00:00:00 33.5 kg/m2 [facility] Index) Group BP Systolic 2022-06-25 00:00:00 133 mm[Hg] [facility] Body Weight 2022-06-25 00:00:00 3848 [oz_av] [facility] BP Diastolic 2022-06-21 00:00:00 73 mm[Hg] [facility] Height 2022-06-21 00:00:00 71 [in_i] [facility] BMI (Body Mass 2022-06-21 00:00:00 34.4 kg/m2 [facility] Medical Index) Group BP Systolic 2022-06-21 00:00:00 112 mm[Hg] [facility] Body Weight 2022-06-21 00:00:00 3942 [oz_av] [facility] height 2022-05-19 10:30:00 71 [in_i] [facility] weight 2022-05-19 10:30:00 254.6 [lb_av] [facility] temperature 2022-05-19 10:30:00 97.6 [degF] [facility] bmi 2022-05-19 10:30:00 35.51 kg/m2 [facility] oximetry 2022-05-19 10:30:00 98 % [facility] respiratory rate 2022-05-19 10:30:00 18 /min [facility] on [facility] blood pressure 2022-05-19 10:30:00 35 mm[Hg] [facility] - systolic [facility] blood pressure 2022-05-19 10:30:00 78 mm[Hg] [facility] - diastolic [facility] BP Diastolic 2022-03-09 00:00:00 77 mm[Hg] [facility] Height 2022-03-09 00:00:00 71 [in_i] [facility] BMI (Body Mass 2022-03-09 00:00:00 35.6 kg/m2 [facility] Medical Index) Group BP Systolic 2022-03-09 00:00:00 122 mm[Hg] [facility] Body Weight 2022-03-09 00:00:00 4078.4 [oz_av] [facility] BP Diastolic 2021-11-06 00:00:00 83 mm[Hg] [facility] Height 2021-11-06 00:00:00 71 [in_i] [facility] BMI (Body Mass 2021-11-06 00:00:00 35 kg/m2 [facility] Medical Index) Group BP Systolic 2021-11-06 00:00:00 127 mm[Hg] [facility] Body Weight 2021-11-06 00:00:00 4020 [oz_av] [facility] Height 2021-09-14 00:00:00 71 [in_i] [facility] BMI (Body Mass 2021-09-14 00:00:00 34.6 kg/m2 [facility] Medical Index) Group Body Weight 2021-09-14 00:00:00 3968 [oz_av] [facility] BP Diastolic 2021-03-26 00:00:00 75 mm[Hg] [facility] Height 2021-03-26 00:00:00 71 [in_i] [facility] BMI (Body Mass 2021-03-26 00:00:00 31.1 kg/m2 [facility] Medical Index) Group BP Systolic 2021-03-26 00:00:00 118 mm[Hg] [facility] Body Weight 2021-03-26 00:00:00 3569 [oz_av] [facility] BP Diastolic 2021-03-10 00:00:00 69 mm[Hg] [facility] Height 2021-03-10 00:00:00 71 [in_i] [facility] BMI (Body Mass 2021-03-10 00:00:00 30.8 kg/m2 [facility] Medical Index) Group BP Systolic 2021-03-10 00:00:00 111 mm[Hg] [facility] Body Weight 2021-03-10 00:00:00 3529 [oz_av] [facility] BP Diastolic 2021-01-02 00:00:00 63 mm[Hg] [facility] Height 2021-01-02 00:00:00 71 [in_i] [facility] BMI (Body Mass 2021-01-02 00:00:00 30.3 kg/m2 [facility] Medical Index) Group BP Systolic 2021-01-02 00:00:00 112 mm[Hg] [facility] Body Weight 2021-01-02 00:00:00 3481 [oz_av] [facility] BP Diastolic 2020-07-15 00:00:00 71 mm[Hg] [facility] Group Height 2020-07-15 00:00:00 71 [in_i] [facility] BMI (Body Mass 2020-07-15 00:00:00 29.7 kg/m2 [facility] Medical Index) Group BP Systolic 2020-07-15 00:00:00 117 mm[Hg] [facility] Body Weight 2020-07-15 00:00:00 213 [lb_av] [facility] BP Diastolic 2020-07-14 00:00:00 71 mm[Hg] [facility] Height 2020-07-14 00:00:00 71 [in_i] [facility] BMI (Body Mass 2020-07-14 00:00:00 29.7 kg/m2 [facility] ER Medical Index) Group BP Systolic 2020-07-14 00:00:00 117 mm[Hg] [facility] Body Weight 2020-07-14 00:00:00 3411 [oz_av] [facility] Height 2020-01-30 00:00:00 71 [in_i] [facility] BMI (Body Mass 2020-01-30 00:00:00 30 kg/m2 [facility] Medical Index) Group Body Weight 2020-01-30 00:00:00 3440 [oz_av] [facility] Systolic blood 2022-03-02 15:38:00 114 mm[Hg] [facility] pressure Diastolic blood 2022-03-02 15:38:00 67 mm[Hg] [facility] pressure Heart rate 2022-03-02 15:38:00 63 /min [facility] Respiratory rate 2022-03-02 15:38:00 16 /min [facility] Oxygen saturation in 2022-03-02 15:38:00 97 /min [facility] Arterial blood by Pulse oximetry Body temperature 2022-03-02 15:30:00 36.33 Elle [facility] Body height 2022-03-01 15:26:00 180.3 cm [facility] Body weight 2022-03-01 15:26:00 115.123 kg [facility] BMI 2022-03-01 15:26:00 35.40 kg/m2 [facility] Procedures Procedure Date / Time Performing Clinician Source Performed US, duplex, penis, 2022-03-09 00:00:00 [facility] complete Group OR [place] < 1 HOUR 2022-03-02 18:31:17 Maynor Romero [facility] ospital 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 2022-03-02 13:31:57 Alfreda Duvall [facility] SPINAE [place] AN ELECTIVE 2022-03-02 12:35:00 Mason Douglas [facility] ENDOTRACHEAL AIRWAY LAMINECTOMY, LUMBAR 2022-03-02 12:29:00 Maynor Romero [facility] POC GLUCOSE 2022-03-02 11:43:00 Maynor Romero ospital Back Surgery 2022-03-02 00:00:00 [facility] dical [facility] XR CHEST 2 VW 2022-03-01 17:28:02 [facility] PRE/POST OP 2022-03-01 16:38:21 Maynor Romero [facility] HEMOGLOBIN A1C 2022-03-01 16:18:00 [facility] COVID-19 QUALITATIVE 2022-03-01 15:48:00 [facility] CBC WITH PLATELET AND 2022-03-01 15:48:00 Maynor Romero [facility] DIFFERENTIAL PARTIAL THROMBOPLASTIN 2022-03-01 15:48:00 Maynor Romero [facility] TIME (PTT) PROTHROMBIN TIME WITH INR 2022-03-01 15:48:[address] [facility] CT POST MYELOGRAM LUMBAR 2022-02-25 18:14:57 [facility] IR MYELOGRAM LUMB INCL 2022-02-25 17:55:00 Jeansydney Rich [facility] INJ W S&I COVID-19 QUALITATIVE 2022-02-24 22:40:00 [facility] RT-PCR COMPREHENSIVE METABOLIC 2022-02-24 22:40:[address] [facility] PANEL CBC WITH PLATELET AND 2022-02-24 22:40:00 [facility] DIFFERENTIAL TROPONIN T 2022-02-24 22:40:00 [facility] B NATRIURETIC PEPTIDE 2022-02-24 22:40:00 [facility] ESTIMATED GFR 2022-02-24 22:40:00 [facility] GENERAL 2022-02-24 22:27:14 [facility] SPINE EXTERNAL STUDY 2022-02-12 16:40:33 Maynor Romero [facility] XR ABDOMEN 2 VW AP W 2021-12-18 16:48:33 [facility] UPRIGHT AND/OR DECUBITUS XR LUMBAR SPINE COMPLETE 2021-12-18 15:33:23 Maynro Romero [facility] W BENDING XR SPINE EXTERNAL STUDY 2021-08-10 17:26:30 Maynor Romero [facility] XR, lumbar spine 2021-03-10 00:00:00 Myla morales Group Plan of Care Planned Activity Planned Date Details Comments Source Future Scheduled Test 2022-09-07 Pneumococcal Vaccine: [facility] 19:21:49 Pediatrics (0 to 5 Years) and At-Risk Patients (6 to 64 Years) (1 - PCV) [code = Pneumococcal Vaccine: Pediatrics (0 to 5 Years) and At-Risk Patients (6 to 64 Years) (1 - PCV)] Future Scheduled Test 2022-09-07 Hepatitis C screening [facility] 19:21:49 (procedure) [code = [id number]] Future Scheduled Test 2022-09-07 COVID-19 VACCINE (3 - [facility] 19:21:49 Booster for Pfizer series) [code = COVID-19 VACCINE (3 - Booster for Pfizer series)] Future Scheduled Test 2022-09-[address] [facility] 19:21:49 [code = INFLUENZA VACCINE] Future Scheduled Test 2022-06-26 Pneumococcal Vaccine: [facility] 18:09:46 Pediatrics (0 to 5 Years) and At-Risk Patients (6 to 64 Years) (1 - PCV) [code = Pneumococcal Vaccine: Pediatrics (0 to 5 Years) and At-Risk Patients (6 to 64 Years) (1 - PCV)] Future Scheduled Test 2022-06-26 Hepatitis C screening [facility] 18:09:46 (procedure) [code = [id number]] Future Scheduled Test 2022-06-26 COVID-19 VACCINE ([address] [place] [address] 18:09:46 Booster for Pfizer series) [code = COVID-19 VACCINE (3 - Booster for Pfizer series)] Future Scheduled Test 2022-06-[address] [facility] 18:09:46 [code = INFLUENZA VACCINE] Future Scheduled Test 2022-06-26 Pneumococcal Vaccine: [facility] 18:09:46 Pediatrics (0 to 5 Years) and At-Risk Patients (6 to 64 Years) (1 - PCV) [code = Pneumococcal Vaccine: Pediatrics (0 to 5 Years) and At-Risk Patients (6 to 64 Years) (1 - PCV)] Future Scheduled Test 2022-06-26 Hepatitis C screening [facility] 18:09:46 (procedure) [code = [id number]] Future Scheduled Test 2022-06-26 COVID-19 VACCINE ([address] [place] [address] 18:09:46 Booster for Pfizer series) [code = COVID-19 VACCINE (3 - Booster for Pfizer series)] Future Scheduled Test 2022-06-[address] [facility] 18:09:46 [code = INFLUENZA VACCINE] Diagnostic Test 2022-06-21 CBC w/ auto diff [facility] Pending 00:00:00 [code = CBC w/ auto Group diff] Diagnostic Test 2022-06-21 CMP, serum or plasma [facility] Pending 00:00:00 [code = CMP, serum or Group plasma] Diagnostic Test 2022-06-21 lipase, serum or [facility] Pending 00:00:00 plasma [code = Group lipase, serum or plasma] Future Scheduled Test 2022-05-20 Pneumococcal Vaccine: [facility] 09:23:23 Pediatrics (0 to 5 Years) and At-Risk Patients (6 to 64 Years) (1 - PCV) [code = Pneumococcal Vaccine: Pediatrics (0 to 5 Years) and At-Risk Patients (6 to 64 Years) (1 - PCV)] Future Scheduled Test 2022-05-20 Hepatitis C screening [facility] 09:23:23 (procedure) [code = [id number]] Future Scheduled Test 2022-05-20 COVID-19 VACCINE ([address] [place] [address] 09:23:23 Booster for Pfizer series) [code = COVID-19 VACCINE (3 - Booster for Pfizer series)] Future Scheduled Test 2022-05-[address] [facility] 09:23:23 [code = INFLUENZA VACCINE] Future Scheduled Test 2022-05-20 Pneumococcal Vaccine: [facility] 09:23:23 Pediatrics (0 to 5 Years) and At-Risk Patients (6 to 64 Years) (1 - PCV) [code = Pneumococcal Vaccine: Pediatrics (0 to 5 Years) and At-Risk Patients (6 to 64 Years) (1 - PCV)] Future Scheduled Test 2022-05-20 Hepatitis C screening [facility] 09:23:23 (procedure) [code = [id number]] Future Scheduled Test 2022-05-20 COVID-19 VACCINE ([address] [place] [address] 09:23:23 Booster for Pfizer series) [code = COVID-19 VACCINE (3 - Booster for Pfizer series)] Future Scheduled Test 2022-05-[address] [facility] 09:23:23 [code = INFLUENZA VACCINE] Future Scheduled Test 2022-05-20 Pneumococcal Vaccine: [facility] 09:23:23 Pediatrics (0 to 5 Years) and At-Risk Patients (6 to 64 Years) (1 - PCV) [code = Pneumococcal Vaccine: Pediatrics (0 to 5 Years) and At-Risk Patients (6 to 64 Years) (1 - PCV)] Future Scheduled Test 2022-05-20 Hepatitis C screening [facility] 09:23:23 (procedure) [code = [id number]] Future Scheduled Test 2022-05-20 COVID-19 VACCINE ([address] [place] [address] 09:23:23 Booster for Pfizer series) [code = COVID-19 VACCINE (3 - Booster for Pfizer series)] Future Scheduled Test 2022-05-[address] [facility] 09:23:23 [code = INFLUENZA VACCINE] Future Scheduled Test 2022-05-20 Pneumococcal Vaccine: [facility] 09:23:23 Pediatrics (0 to 5 Years) and At-Risk Patients (6 to 64 Years) (1 - PCV) [code = Pneumococcal Vaccine: Pediatrics (0 to 5 Years) and At-Risk Patients (6 to 64 Years) (1 - PCV)] Future Scheduled Test 2022-05-20 Hepatitis C screening [facility] 09:23:23 (procedure) [code = [id number]] Future Scheduled Test 2022-05-20 COVID-19 VACCINE ([address] [place] [address] 09:23:23 Booster for Pfizer series) [code = COVID-19 VACCINE (3 - Booster for Pfizer series)] Future Scheduled Test 2022-05-[address] [facility] 09:23:23 [code = INFLUENZA VACCINE] Future Scheduled Test 2022-05-20 Pneumococcal Vaccine: [facility] 09:23:23 Pediatrics (0 to 5 Years) and At-Risk Patients (6 to 64 Years) (1 - PCV) [code = Pneumococcal Vaccine: Pediatrics (0 to 5 Years) and At-Risk Patients (6 to 64 Years) (1 - PCV)] Future Scheduled Test 2022-05-20 Hepatitis C screening [facility] 09:23:23 (procedure) [code = [id number]] Future Scheduled Test 2022-05-20 COVID-19 VACCINE ([address] [place] [address] 09:23:23 Booster for Pfizer series) [code = COVID-19 VACCINE (3 - Booster for Pfizer series)] Future Scheduled Test 2022-05-[address] [facility] 09:23:23 [code = INFLUENZA VACCINE] Future Scheduled Test 2022-05-20 Pneumococcal Vaccine: [facility] 09:23:23 Pediatrics (0 to 5 Years) and At-Risk Patients (6 to 64 Years) (1 - PCV) [code = Pneumococcal Vaccine: Pediatrics (0 to 5 Years) and At-Risk Patients (6 to 64 Years) (1 - PCV)] Future Scheduled Test 2022-05-20 Hepatitis C screening [facility] 09:23:23 (procedure) [code = [id number]] Future Scheduled Test 2022-05-20 COVID-19 VACCINE ([address] [place] [address] 09:23:23 Booster for Pfizer series) [code = COVID-19 VACCINE (3 - Booster for Pfizer series)] Future Scheduled Test 2022-05-[address] [facility] 09:23:23 [code = INFLUENZA VACCINE] Future Scheduled Test 2022-05-11 Pneumococcal Vaccine: [facility] 07:01:06 Pediatrics (0 to 5 Years) and At-Risk Patients (6 to 64 Years) (1 - PCV) [code = Pneumococcal Vaccine: Pediatrics (0 to 5 Years) and At-Risk Patients (6 to 64 Years) (1 - PCV)] Future Scheduled Test 2022-05-11 Hepatitis C screening [facility] 07:01:06 (procedure) [code = [id number]] Future Scheduled Test 2022-05-11 COVID-19 VACCINE ([address] [place] [address] 07:01:06 Booster for Pfizer series) [code = COVID-19 VACCINE (3 - Booster for Pfizer series)] Future Scheduled Test 2022-05-[address] [facility] 07:01:06 [code = INFLUENZA VACCINE] Future Scheduled Test 2022-05-11 Pneumococcal Vaccine: [facility] 07:01:06 Pediatrics (0 to 5 Years) and At-Risk Patients (6 to 64 Years) (1 - PCV) [code = Pneumococcal Vaccine: Pediatrics (0 to 5 Years) and At-Risk Patients (6 to 64 Years) (1 - PCV)] Future Scheduled Test 2022-05-11 Hepatitis C screening [facility] 07:01:06 (procedure) [code = [id number]] Future Scheduled Test 2022-05-11 COVID-19 VACCINE ([address] [place] [address] 07:01:06 Booster for Pfizer series) [code = COVID-19 VACCINE (3 - Booster for Pfizer series)] Future Scheduled Test 2022-05-[address] [facility] 07:01:06 [code = INFLUENZA VACCINE] Future Scheduled Test 2022-04-23 Pneumococcal Vaccine: [facility] 15:05:55 Pediatrics (0 to 5 Years) and At-Risk Patients (6 to 64 Years) (1 - PCV) [code = Pneumococcal Vaccine: Pediatrics (0 to 5 Years) and At-Risk Patients (6 to 64 Years) (1 - PCV)] Future Scheduled Test 2022-04-23 Hepatitis C screening [facility] 15:05:55 (procedure) [code = [id number]] Future Scheduled Test 2022-04-23 COVID-19 VACCINE ([address] [place] [address] 15:05:55 Booster for Pfizer series) [code = COVID-19 VACCINE (3 - Booster for Pfizer series)] Future Scheduled Test 2022-04-[address] [facility] 15:05:55 [code = INFLUENZA VACCINE] Future Scheduled Test 2022-03-19 Pneumococcal Vaccine: [facility] 14:05:17 Pediatrics (0 to 5 Years) and At-Risk Patients (6 to 64 Years) (1 - PCV) [code = Pneumococcal Vaccine: Pediatrics (0 to 5 Years) and At-Risk Patients (6 to 64 Years) (1 - PCV)] Future Scheduled Test 2022-03-19 Hepatitis C screening [facility] 14:05:17 (procedure) [code = [id number]] Future Scheduled Test 2022-03-19 COVID-19 VACCINE ([address] [place] [address] 14:05:17 Booster for Pfizer series) [code = COVID-19 VACCINE (3 - Booster for Pfizer series)] Future Scheduled Test 2022-03-[address] [facility] 14:05:17 [code = INFLUENZA VACCINE] Future Scheduled Test 2022-03-19 Pneumococcal Vaccine: [facility] 14:05:17 Pediatrics (0 to 5 Years) and At-Risk Patients (6 to 64 Years) (1 - PCV) [code = Pneumococcal Vaccine: Pediatrics (0 to 5 Years) and At-Risk Patients (6 to 64 Years) (1 - PCV)] Future Scheduled Test 2022-03-19 Hepatitis C screening [facility] 14:05:17 (procedure) [code = [id number]] Future Scheduled Test 2022-03-19 COVID-19 VACCINE ([address] [place] [address] 14:05:17 Booster for Pfizer series) [code = COVID-19 VACCINE (3 - Booster for Pfizer series)] Future Scheduled Test 2022-03-[address] [facility] 14:05:17 [code = INFLUENZA VACCINE] Future Scheduled Test 2022-03-06 Pneumococcal Vaccine: [facility] 19:05:17 Pediatrics (0 to 5 Years) and At-Risk Patients (6 to 64 Years) (1 - PCV) [code = Pneumococcal Vaccine: Pediatrics (0 to 5 Years) and At-Risk Patients (6 to 64 Years) (1 - PCV)] Future Scheduled Test 2022-03-06 Hepatitis C screening [facility] 19:05:17 (procedure) [code = [id number]] Future Scheduled Test 2022-03-06 COVID-19 VACCINE ([address] [place] [address] 19:05:17 Booster for Pfizer series) [code = COVID-19 VACCINE (3 - Booster for Pfizer series)] Future Scheduled Test 2022-03-[address] [facility] 19:05:17 [code = INFLUENZA VACCINE] Future Scheduled Test 2022-03-06 Pneumococcal Vaccine: [facility] 19:05:17 Pediatrics (0 to 5 Years) and At-Risk Patients (6 to 64 Years) (1 - PCV) [code = Pneumococcal Vaccine: Pediatrics (0 to 5 Years) and At-Risk Patients (6 to 64 Years) (1 - PCV)] Future Scheduled Test 2022-03-06 Hepatitis C screening [facility] 19:05:17 (procedure) [code = [id number]] Future Scheduled Test 2022-03-06 COVID-19 VACCINE ([address] [place] [address] 19:05:17 Booster for Pfizer series) [code = COVID-19 VACCINE (3 - Booster for Pfizer series)] Future Scheduled Test 2022-03-[address] [facility] 19:05:17 [code = INFLUENZA VACCINE] Future Scheduled Test 2022-03-06 Pneumococcal Vaccine: [facility] 19:05:17 Pediatrics (0 to 5 Years) and At-Risk Patients (6 to 64 Years) (1 - PCV) [code = Pneumococcal Vaccine: Pediatrics (0 to 5 Years) and At-Risk Patients (6 to 64 Years) (1 - PCV)] Future Scheduled Test 2022-03-06 Hepatitis C screening [facility] 19:05:17 (procedure) [code = [id number]] Future Scheduled Test 2022-03-06 COVID-19 VACCINE ([address] [place] [address] 19:05:17 Booster for Pfizer series) [code = COVID-19 VACCINE (3 - Booster for Pfizer series)] Future Scheduled Test 2022-03-[address] [facility] 19:05:17 [code = INFLUENZA VACCINE] Future Scheduled Test 2022-03-06 Pneumococcal Vaccine: [facility] 19:05:17 Pediatrics (0 to 5 Years) and At-Risk Patients (6 to 64 Years) (1 - PCV) [code = Pneumococcal Vaccine: Pediatrics (0 to 5 Years) and At-Risk Patients (6 to 64 Years) (1 - PCV)] Future Scheduled Test 2022-03-06 Hepatitis C screening [facility] 19:05:17 (procedure) [code = [id number]] Future Scheduled Test 2022-03-06 COVID-19 VACCINE (3 - [facility] 19:05:17 Booster for Pfizer series) [code = COVID-19 VACCINE (3 - Booster for Pfizer series)] Future Scheduled Test 2022-03-[address] [facility] 19:05:17 [code = INFLUENZA VACCINE] Instructions [place] [facility] Encounters Start End Encounter Admission Attending Care Care Encounter Source Date/Time Date/Time Type Type Clinicians Facility Department ID 2022-08-26 Outpatient MAYDA Diaz [facility] [id number] Common 10:40:02 Ronnell [id number] [facility] 2022-08-09 Inpatient TEXBRITT GROSS [id number] [place] 16:07:58 [id number] [place] 2022-06-18 Inpatient YASMEEN KHANNA [facility] [id number] [facility] 08:00:00 NAHUN -[id number] Critical access hospital 2022-06-11 Inpatient YASMEEN KHANNA [facility] [id number] [facility] 08:00:00 [id number] 2022-06-08 Inpatient TEXBRITT GROSS [id number] [place] 11:16:57 [id number] [place] 2022-05-31 Inpatient TEXBRITT GROSS [id number] [place] 12:03:56 [id number] [place] 2022-05-19 Outpatient MAYDA Diaz [facility] [id number] Common 09:43:04 Ronnell [id number] [facility] 2022-05-03 Inpatient YASMEEN ROMERO [facility] [id number] [place] 09:00:00 MAYNOR -[id number] Critical access hospital 2022-03-23 Inpatient TEXANA TEXBRITT [id number] [place] 11:21:45 [id number] [place] 2022-09-07 2022-09-07 Telephone Duc 1.2.840.1 [id number] Methodi 00:00:00 00:00:[address] 3.430.2.7 Hospit a .3.014254 l .8 2022-07-26 2022-08-06 Office Maynor RomeroJuan José 1.2.840.1 [id number] Methodi 10:00:00 16:53:40 Visit JeanmisaelGavinn 38687.1.[address] 3.430.2.7 Hospit a .3.613607 l .8 2022-07-29 2022-07-29 Outpatient YASMEEN KHANNA [facility] [id number] [place] 09:54:00 09:54:00 NAHUN -[id number] Critical access hospital 2022-07-26 2022-07-26 [facility] [id number] [place] 00:00:00 00:00:[address] 2022-07-26 2022-07-26 Travel 1.2.840.1 1.2.742.951 [id number] Methodi 00:00:00 00:00:[address] 3.430.2.7 0.2.7.3.698 Ho spita .3.185765 084.8 l .8 2022-06-14 2022-07-10 Outpatient YASMEEN ROMERO [facility] [id number] [place] 07:00:00 00:01:00 MAYNOR -[id number] Critical access hospital 2022-07-05 2022-07-05 Emergency ER Barron, [facility] [id number] [place] 23:45:00 23:58:00 Neymar -[id number] Critical access hospital 2022-06-25 2022-06-25 Outpatient YASMEEN Diaz [facility] [id number] [place] 10:55:00 10:55:00 Ronnell -[id number] Critical access hospital 2022-06-25 2022-06-25 Outpatient Orlando_Sonja [facility] [id number] [place] 00:00:00 00:00:00 1216 Medical Group 2022-06-25 2022-06-25 Radha [facility] [place] - [id number] [place] 00:00:00 00:00:00 Discovery perry Diaz 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 2022-06-24 2022-06-24 Orders Jeanheri, 1.2.840.1 [id number] Methodi 00:00:00 00:00:00 Only Rich [address]476.1.[address] 3.430.2.7 Hospit a .3.539300 l .8 2022-06-24 2022-06-24 Orders Javaheri, 1.2.840.1 [id number] Methodi 00:00:00 00:00:00 Only Rich 62238.1.[address] 3.430.2.7 Hospit a .3.736647 l .8 2022-06-21 2022-06-21 Outpatient Eltoniga_F [facility] [id number] [place] 00:00:00 00:00:00 1212 Medical [facility] 2022-06-21 2022-06-21 Ronnell [facility] [place] - [id number] [place] 00:00:00 00:00:00 Aracelis Klein MD: [address] [phone] , Ph. 2022-06-09 2022-06-16 Inpatient ER Orlando [facility] MED [id number] [place] 08:05:00 15:40:00 Ronnell -[id number] Critical access hospital 2022-06-02 2022-06-09 Outpatient YASMEEN ROMERO [facility] [id number] [place] 11:00:00 00:01:00 MAYNOR [id number] Critical access hospital 2022-06-07 2022-06-07 Inpatient ER ORLANDO, [facility] [id number] [place] 17:16:00 14:35:00 RONNELL -[id number] Critical access hospital 2022-06-05 2022-06-05 Emergency ER Nkechi, [facility] [id number] [place] 15:31:00 15:45:00 Kalpesh -[id number] Critical access hospital 2022-05-26 2022-05-26 Outpatient YASMEEN ROMERO, [facility] [id number] [place] 11:00:00 11:00:00 MAYNOR -[id number] Critical access hospital 2022-05-24 2022-05-24 Outpatient YASMEEN ROMERO, [facility] [id number] [place] 11:00:00 11:00:00 MAYNOR -[id number] Critical access hospital 2022-05-21 2022-05-21 Outpatient YASMEEN ROMERO, [facility] [id number] [place] 11:00:00 11:00:00 MAYNOR -[id number] Critical access hospital 2022-05-20 2022-05-20 Outpatient YASMEEN KHANNA, [facility] [id number] [place] 08:01:00 08:01:00 NAHUN -[id number] Critical access hospital 2022-05-19 2022-05-19 Orders Dejah, 1.2.840.1 [id number] Methodi 00:00:00 00:00:00 Only Rich 03306.1.[address] 3.430.2.7 Hospit a .3.278773 l .8 2022-05-19 2022-05-[address] [id number] mmon 00:00:00 00:00:00 VISIT [facility] PT LEVEL 3 - [facility] 2022-05-19 2022-05-19 Orders Dejah, 1.2.840.1 [id number] Methodi 00:00:00 00:00:00 Only Rich 21552.1.[address] 3.430.2.7 Hospit a .3.532608 l .8 2022-05-18 2022-05-18 Emergency ER Brooke, [facility] [id number] [place] 19:04:00 21:55:00 Melecio -[id number] Critical access hospital 2022-04-30 2022-04-30 Emergency ER Nkechi, [facility] [id number] [place] 14:49:00 15:34:00 Kalpesh -[id number] Critical access hospital 2022-04-25 2022-04-25 Emergency ER Beatrice, [facility] [id number] [place] 14:10:00 14:43:00 Neymar -[id number] Critical access hospital 2022-04-21 2022-04-21 Emergency ER Jonn, [facility] [id number] [place] 08:47:00 10:02:00 Arlet -[id number] Critical access hospital 2022-04-19 2022-04-19 Office Nick, 1.2.840.1 [id number] 7684 Methodi 10:20:00 11:30:20 Visit Manyor Lynch. 86234.1.1 837 s t 3.430.2.7 Hospit a .3.938414 l .8 2022-04-19 2022-04-19 Office Nick, 1.2.840.1 [id number] 3302 Methodi 10:20:00 11:30:20 Visit Maynor Lynch. 48220.1.1 837 s t 3.430.2.7 Hospit a .3.954887 l .8 2022-04-19 2022-04-19 Travel 1.2.840.1 1.2.140.667 9756 114756 Methodi 00:00:00 00:00:[address] 3.430.2.7 0.2.7.3.698 Ho spita .3.138351 084.8 l .8 2022-04-19 2022-04-19 Travel 1.2.840.1 1.2.876.141 8215 756407 Methodi 00:00:00 00:00:[address] 3.430.2.7 0.2.7.3.698 spita .3.690320 084.8 l .8 2022-04-16 2022-04-16 Emergency ER Beatrice, [facility] [id number] [place] 08:42:00 11:50:00 Neymar -[id number] Critical access hospital 2022-04-14 2022-04-14 Emergency ER Jonn, [facility] [id number] [place] 07:08:00 08:22:00 Arlet -[id number] Critical access hospital 2022-04-05 2022-04-05 Emergency ER Melissa, [facility] U4595 22003 [place] 12:23:00 14:08:00 Alexa -[id number] Critical access hospital 2022-04-01 2022-04-01 [facility] [place] 00:00:00 00:00:00 [facility] 2022-04-01 2022-04-01 Orders Javaheri, 1.2.840.1 [id number] 2099 396190 Methodi 00:00:00 00:00:00 Only Rich 06155.1.[address] 3.430.2.7 Hospit a .3.268896 l .8 2022-04-01 2022-04-01 Orders Javaheri, 1.2.840.1 [id number] 2099 104117 Methodi 00:00:00 00:00:00 Only Rich 90864.1.[address] 3.430.2.7 Hospit a .3.215405 l .8 2022-03-31 2022-03-31 Emergency ER Jonn, [facility] D5940 [id number] [place] 13:34:00 16:08:00 Arlet -[id number] Critical access hospital 2022-03-21 2022-03-21 Emergency ER Nkechi, [facility] [id number] 0079 [place] 09:47:00 14:33:00 Kalpesh -[id number] Critical access hospital 2022-03-19 2022-03-19 Office Dejah, 1.2.840.1 [id number] 2099 736517 Methodi 14:20:00 14:33:59 Visit Rich 36465.1.[address] 3.430.2.7 Hospit a .3.342205 l .8 2022-03-19 2022-03-19 Office Dejah, 1.2.840.1 [id number] 2099 656744 Methodi 14:20:00 14:33:59 Visit Rich 34843.1.[address] 3.430.2.7 Hospit a .3.583179 l .8 2022-03-19 2022-03-19 Travel 1.2.840.1 1.2.586.377 0803 936969 Methodi 00:00:00 00:00:[address] 3.430.2.7 0.2.7.3.698 Ho spita .3.340634 084.8 l .8 2022-03-19 2022-03-19 Travel 1.2.840.1 1.2.009.977 3465 057442 Methodi 00:00:00 00:00:[address] 3.430.2.7 0.2.7.3.698 Ho spita .3.062710 084.8 l .8 2022-03-11 2022-03-[address] [id number] [place] 09:45:00 13:28:00 Chance -[id number] Critical access hospital 2022-03-09 2022-03-09 Outpatient Duarte_Sundar [facility] [id number] -2021 [place] 00:00:00 00:00:00 0830 Medical [facility] 2022-03-09 2022-03-09 Kia [place] - [id number] M atagor 00:00:00 00:00:00 Discovery Carlos SimpsonC: 600 [facility] - [address] [address] , Ph. 2022-03-07 2022-03-07 Emergency ER Jonn, [facility] N3785 [id number] [place] 12:01:00 13:53:00 Arlet -[id number] Critical access hospital 2022-03-03 2022-03-03 Telephone Priyankchamplain, 1.2.840.1 [id number] 2099 694215 Methodi 00:00:00 00:00:[address] 3.430.2.7 Hospit a .3.780235 l .8 2022-03-03 2022-03-03 Telephone Priyankchamplain, 1.2.840.1 [id number] 2099 091777 Methodi 00:00:00 00:00:[address] 3.430.2.7 Hospit a .3.249861 l .8 2022-03-02 2022-03-02 [place] [address].2.840.1 [id number] 18597 Methodi 05:56:00 11:56:00 Encounter Maynor Sánchez 78888.1.[address] 3.430.2.7 Hospit a .3.997122 l .8 2022-03-02 2022-03-02 [place] [address].2.840.1 [id number] 21001 44446 Methodi 05:56:00 11:56:00 Encounter Maynor Sánchez 48383.1.[address] 3.430.2.7 Hospit a .3.411911 l .8 2022-03-02 2022-03-02 Anesthesia Alfreda Duvall 1.2.840.1 10 3801417 [id number] Methodi 07:29:00 09:55:00 Event Anna Adair 35839.1.[address] 3.430.2.7 Hospit a .3.620298 l .8 2022-03-02 2022-03-02 Anesthesia Alfreda Duvall 1.2.840.1 10 7788120 [id number] Methodi 07:29:00 09:55:00 Event Anna Adair 62772.1.[address] 3.430.2.7 Hospit a .3.546798 l .8 2022-03-02 2022-03-02 [facility], 1.2.840.1 [id number] 684591 9815 Methodi 07:30:00 09:50:00 Maynor LynchJuan José 05636.1.1 735 s t 3.430.2.7 Hospit a .3.579222 l .8 2022-03-02 2022-03-02 [facility], 1.2.840.1 [id number] 639152 1139 Methodi 07:30:00 09:50:00 Maynor LynchJuan José 16597.1.1 735 s t 3.430.2.7 Hospit a .3.891550 l .8 2022-03-02 2022-03-02 Telephone Klausmarcelamisael, 1.2.840.1 [id number] 21 [id number] Methodi 00:00:00 00:00:[address] 3.430.2.7 Hospit a .3.385819 l .8 2022-03-02 2022-03-02 [facility] 1.2.840.1 [id number] 21 10724721 Methodi 00:00:00 00:00:[address] 3.430.2.7 Hospit a .3.384789 l .8 2022-03-01 2022-03-01 [facility], 1.2.840.1 [id number] 29084 27971 Methodi 12:18:26 23:59:00 Encounter Maynor LynchJuan José 64587.1.[address] 3.430.2.7 Hospit a .3.683464 l .8 2022-03-01 2022-03-01 [facility], 1.2.840.1 [id number] 77231 Methodi 12:18:26 23:59:00 Encounter Maynor B. 86642.1.[address] 3.430.2.7 Hospit a .3.359028 l .8 2022-03-01 2022-03-01 Pre-Admiss Nick, 1.2.840.1 [id number] 394 5411676 Methodi 09:30:00 10:30:00 doris Sánchez 65879.1.1 034 s t Testing 3.430.2.7 Hospit a .3.454574 l .8 2022-03-01 2022-03-01 Pre-Admiss Nick, 1.2.840.1 306754685 585 9674883 Methodi 09:30:00 10:30:00 doris Sánchez 18941.1.1 034 s t Testing 3.430.2.7 Hospit a .3.295099 l .8 2022-03-01 2022-03-01 Telephone Bedolla, 1.2.840.1 [id number] 21 [id number] Methodi 00:00:00 00:00:[address] 3.430.2.7 Hospit a .3.720866 l .8 2022-03-01 2022-03-01 Travel 1.2.840.1 1.2.993.649 1409 272137 Methodi 00:00:00 00:00:[address] 3.430.2.7 0.2.7.3.698 Ho spita .3.033887 084.8 l .8 2022-03-01 2022-03-01 Telephone Bedolla, 1.2.840.1 [id number] 34485951 Methodi 00:00:00 00:00:[address] 3.430.2.7 Hospit a .3.552705 l .8 2022-03-01 2022-03-01 Travel 1.2.840.1 1.2.219.828 0234 380306 Methodi 00:00:00 00:00:[address] 3.430.2.7 0.2.7.3.698 Ho spita .3.373866 084.8 l .8 2022-02-26 2022-02-26 Telephone Nick, 1.2.840.1 [id number] 2099685 Methodi 00:00:00 00:00:00 Maynor Sánchez 49794.1.1 279 s t 3.430.2.7 Hospit a .3.368467 l .8 2022-02-26 2022-02-26 Travel 1.2.840.1 1.2.150.667 4298 136486 Methodi 00:00:00 00:00:[address] 3.430.2.7 0.2.7.3.698 Ho spita .3.099019 084.8 l .8 2022-02-26 2022-02-26 Daniel Romero 1.2.840.1 452322501 2099685 Methodi 00:00:00 00:00:00 Maynor Sánchez 03283.1.1 279 s t 3.430.2.7 Hospit a .3.686485 l .8 2022-02-26 2022-02-26 Travel 1.2.840.1 1.2.641.261 1494 251466 Methodi 00:00:00 00:00:[address] 3.430.2.7 0.2.7.3.698 Ho spita .3.965135 084.8 l .8 2022-02-24 2022-02-25 [facility] 1.2.840.1 104012 0650241411 Methodi 15:25:00 19:45:00 Basilio Diallo 17429.1.[address] 3.430.2.7 Hospit a .3.425749 l .8 2022-02-24 2022-02-25 [facility] 1.2.840.1 [id number] Methodi 15:25:00 19:45:00 Basilio Diallo 73021.1.[address] 3.430.2.7 Hospit a .3.096509 l .8 2022-02-25 2022-02-25 [facility], 1.2.840.1 [id number] 671 0854391 Methodi 00:00:00 00:00:00 Orders Maynor Sánchez 32876.1.1 241 s t 3.430.2.7 Hospit a .3.694047 l .8 2022-02-25 2022-02-25 Orders Dejah, 1.2.840.1 [id number] 2099 192504 Methodi 00:00:00 00:00:00 Only Rich 66097.1.[address] 3.430.2.7 Hospit a .3.857338 l .8 2022-02-25 2022-02-25 [facility], 1.2.840.1 803730022 963 8613121 Methodi 00:00:00 00:00:00 Orders Maynor Sánchez 73269.1.1 241 s t 3.430.2.7 Hospit a .3.995596 l .8 2022-02-25 2022-02-25 Orders Dejah, 1.2.840.1 [id number] 2099 713905 Methodi 00:00:00 00:00:00 Only Rich 77490.1.[address] 3.430.2.7 Hospit a .3.994836 l .8 2022-02-24 2022-02-24 [facility], 1.2.840.1 [id number] 77614 Methodi 18:39:58 23:59:00 Encounter Maynor Sánchez 56378.1.[address] 3.430.2.7 Hospit a .3.787341 l .8 2022-02-24 2022-02-24 [facility], 1.2.840.1 [id number] 78597 Methodi 18:39:58 23:59:00 Encounter Maynor Sánchez 04498.1.[address] 3.430.2.7 Hospit a .3.210847 l .8 2022-02-24 2022-02-24 [facility], 1.2.840.1 [id number] 17468 Methodi 18:39:26 23:59:00 Encounter Maynor B. 07876.1.[address] 3.430.2.7 Hospit a .3.309002 l .8 2022-02-24 2022-02-24 [facility] Nick, 1.2.840.1 [id number] 17288 80251 Methodi 18:39:26 23:59:00 Encounter Maynor Sánchez 67505.1.[address] 3.430.2.7 Hospit a .3.017652 l .8 2022-02-24 2022-02-24 [facility] Nick, 1.2.840.1 [id number] 370370 8668 Methodi 00:00:00 00:00:00 Only Maynor Sánchez 33037.1.1 790 s t 3.430.2.7 Hospit a .3.723805 l .8 2022-02-24 2022-02-24 Travel 1.2.840.1 1.2.387.061 4444 073456 Methodi 00:00:00 00:00:[address] 3.430.2.7 0.2.7.3.698 Ho spita .3.368295 084.8 l .8 2022-02-24 2022-02-24 [facility], 1.2.840.1 [id number] 609730 8408 Methodi 00:00:00 00:00:00 Only Maynor Sánchez 32696.1.1 790 s t 3.430.2.7 Hospit a .3.662408 l .8 2022-02-24 2022-02-24 Travel 1.2.840.1 1.2.073.805 2963 313322 Methodi 00:00:00 00:00:[address] 3.430.2.7 0.2.7.3.698 Ho spita .3.837832 084.8 l .8 2022-02-12 2022-02-12 Emergency ER Nkechi, [facility] [id number] [facility] 13[facility]17:00 Kalpesh [id number] Critical access hospital 2022-01-262022-01-26 Outpatient ANDREIA [facility] 909 [place] 12:18:00 12:18:00 _DOREEN 0719 [facility] 2022-01-17 2022-01-17 Emergency ER Melissa, [facility] Z4797 91174 [place] 18:06:00 21:18:00 Alexa -[id number] Critical access hospital 2021-12-18 2021-12-18 Office Nick, 1.2.840.1 [id number] 267276 9298 Methodi 10:20:00 11:32:26 Visit Maynor Sánchez 52360.1.1 071 s t 3.430.2.7 Hospit a .3.303708 l .8 2021-12-18 2021-12-18 Office Nick, 1.2.840.1 [id number] 864939 0261 Methodi 10:20:00 11:32:26 Visit Maynor Sánchez 76166.1.1 071 s t 3.430.2.7 Hospit a .3.573774 l .8 2021-12-18 2021-12-18 Outpatient [facility] [id number] 960 [place] 00:00:00 00:00:00 MAY[address] 2021-12-18 2021-12-18 Travel 1.2.840.1 1.2.144.504 9870 931433 Methodi 00:00:00 00:00:[address] 3.430.2.7 0.2.7.3.698 Ho spita .3.293772 084.8 l .8 2021-12-18 2021-12-18 Outpatient [facility] [id number] 971 [place] 00:00:00 00:00:00 MAYNOR [address] 2021-12-18 2021-12-18 Travel 1.2.840.1 1.2.838.521 4660 096297 Methodi 00:00:00 00:00:[address] 3.430.2.7 0.2.7.3.698 Ho spita .3.322409 084.8 l .8 2021-11-30 2021-11-30 Emergency ER Rico, [facility] [id number] [place] 01:26:00 04:02:00 Sheila -[id number] Critical access hospital 2021-11-06 2021-11-06 [place] [id number] -2021 [place] 12:33:00 12:33:00 0502 Medical Group 2021-11-06 2021-11-06 [place] [id number] [place] 00:00:00 00:00:00 0429 Medical Group 2021-11-06 2021-11-06 Susan MM [place] - [id number] M atagor 00:00:00 00:00:00 Aracelis [facility] SHOVEL LOGGER: [address] [address] , Ph. 2021-11-05 2021-11-05 [place] [id number] -2021 [place] 04:51:00 04:51:00 0428 Medical Group 2021-09-14 2021-09-14 [place] [id number] [place] 12:39:00 12:39:00 0307 Medical Group 2021-09-14 2021-09-14 Kia [facility] [place] - [id number] M atagor 00:00:00 00:00:00 Discovery perry Simpson PA-C: [address] [address] , Ph. 2021-09-14 2021-09-14 Travel 1.2.840.1 1.2.567.904 7895 493412 Methodi 00:00:00 00:00:[address] 3.430.2.7 0.2.7.3.698 Ho spita .3.597548 084.8 l .8 2021-08-10 2021-08-10 Outpatient Koudela_A MMG [facility] [id number] -2021 [place] 11:36:00 11:36:00 0131 [facility] 2021-08-10 2021-08-10 Outpatient Koudela_A MMG MMG [id number] -2021 [place] 11:36:00 11:36:00 0211 [facility] 2021-08-10 2021-08-10 Outpatient YASMEEN SIMPSON, [facility] [id number] [place] 11:05:00 11:05:00 KIA -[id number] Critical access hospital 2021-06-24 2021-06-24 Inpatient ER Young, [facility] [id number] [place] 00:24:00 13:53:00 Abraham -[id number] Critical access hospital 2021-05-04 2021-05-04 Outpatient Zuniga_F MMG [facility] [id number] [place] 10:22:00 10:22:00 1220 [facility] 2021-04-28 2021-04-29 [facility] [id number] [place] 18:03:00 01:22:00 BARBARA -[id number] Critical access hospital 2021-03-26 2021-03-26 Outpatient Zuniga_F MMG [facility] [id number]- 2020 [place] 10:53:00 10:53:00 0916 [facility] 2021-03-26 2021-03-26 Outpatient YASMEEN Diaz, [facility] [id number] [place] 08:44:00 08:44:00 Ronnell -[id number] Critical access hospital 2021-03-26 2021-03-26 Ronnell MM [place] - [id number] [place] 00:00:00 00:00:00 Aracelis Klein Medical MD: [address] [place] [address] [address] [address] , Ph. 2021-03-10 2021-03-10 Outpatient Zuniga_F MMG [facility] [id number]- 2020 [place] 04:23:00 04:23:00 0831 [facility] 2021-03-10 2021-03-10 Ronnell MM [place] - [id number] [place] 00:00:00 00:00:00 Aracelis Klein Medical MD: [address] [place] [address] , Ph. 2021-02-19 2021-02-19 Emergency ER CELSA MUNGUIA [facility] [id number] [place] 09:17:00 18:11:00 -[id number] Critical access hospital 2021-02-18 2021-02-18 Outpatient Zuniga_F MMG [facility] [id number]- 2020 [place] 10:58:00 10:58:00 0811 [facility] 2021-02-13 2021-02-13 Outpatient Zuniga_S MMG [facility] [id number]- 2020 [place] 11:36:00 11:36:00 0806 [facility] 2021-02-11 2021-02-11 Outpatient Zuniga_S MMG [facility] [id number]- 2020 [place] 04:11:00 04:11:00 0804 [facility] 2021-01-18 2021-01-18 Emergency ER CHINO, [facility] [id number] [place] 07:23:00 15:33:00 PRISCILA -[id number] Critical access hospital 2021-01-02 2021-01-02 Outpatient Zuniga_S MMG [facility] [id number]- 2020 [place] 11:03:00 11:03:00 0625 [facility] 2021-01-02 2021-01-02 [place] [id number]- 2020 [place] 11:03:00 11:03:00 0626 da Medical [facility] 2021-01-02 2021-01-02 Radha MM [place] - [id number] [place] 00:00:00 00:00:00 Discovery perry Diaz 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 2020-07-15 2020-07-15 Outpatient Zuniga_F MMG MMG [id number]- 2020 [place] 12:50:00 12:50:00 0105 [facility] 2020-07-15 2020-07-15 Outpatient Zuniga_F MMG MMG [id number]- 2020 [place] 12:50:00 12:50:00 0111 [facility] 2020-07-15 2020-07-15 Tyson MM [place] - [id number] M atagor 00:00:00 00:00:00 Discovery perry Munoz MD: [address] [place] [address] - [facility] [address], [place] [address] , Ph. 2020-07-14 2020-07-14 [place] [id number]- 2020 [place] 04:30:00 04:30:00 0104 Medical Group 2020-07-14 2020-07-14 Ronnell [facility] [place] - [id number] [place] 00:00:00 00:00:00 Aracelis Klein MD: [address] [place] [address] [address], [place] [address] , Ph. 2020-07-10 2020-07-10 Outpatient Zuniga_F MMG MMG [id number] [place] 10:29:00 10:29:00 1231 Medical Group 2020-07-07 2020-07-08 Emergency ER BELL BUCKLE, [facility] [id number] [place] 23:32:00 12:45:00 PRISCILA [id number] Critical access hospital 2020-02-26 2020-02-26 Outpatient Zuniga_F MMG MMG [id number] [place] 12:39:00 12:39:00 1229 Medical Group 2020-02-26 2020-02-26 Outpatient Zuniga_F MMG MMG [id number] [place] 12:39:00 12:39:00 1230 [facility] 2020-01-30 2020-01-30 Outpatient Orlando_F MMG [facility] [id number]- 2020 [place] 08:08:00 08:08:00 07 [facility] 2020-01-30 2020-01-30 Ronnell MM[place] - [id number] [place] 00:00:00 00:00:00 Micky Lozano Medical Medical MD: [address] [facility] [address], [place] [address] , Ph. 2020-01-29 2020-01-29 Outpatient Raju_P MMG [facility] [id number] 020 [place] 04:40:00 04:40:00 0721 [facility] 2019-11-06 2019-11-06 [place] [id number] 020 [place] 03:29:00 03:29:00 0428 [facility] 2019-11-06 2019-11-06 Outpatient Raju_P MMG [facility] [id number] 020 [place] 03:29:00 03:29:00 0429 [facility] 2019-03-02 2019-03-02 Outpatient YASMEEN ASCENCIO, [facility] [id number] [place] 11:02:00 11:02:00 KENNETH -[id number] Critical access hospital 2019-02-13 2019-02-13 Emergency ER CHINO, [facility] [id number] [place] 17:16:00 18:34:00 PRISCILA -[id number] Critical access hospital 2018-02-07 2018-02-07 Outpatient YASMEEN LUU [facility] D00 [id number] [place] 09:47:00 09:47:00 Mario Alberto AMDREAI -[id number] Critical access hospital 2017-10-12 2017-10-12 Emergency ER OWO, TOKS [facility] [id number] [place] 17:50:00 19:49:00 -[id number] Critical access hospital 2017-06-01 2017-06-01 Emergency ER OWO, [facility]KS [facility] [id number] [place] 04:32:00 06:26:00 -[id number] Critical access hospital 2017-02-24 2017-02-24 Outpatient EL SILVA, [facility] [id number] [place] 08:41:00 08:41:00 BYMARIA G -[id number] Critical access hospital 2017-01-13 2017-01-13 Emergency ER UGORJI, [facility] [id number] [place] 00:20:00 03:56:00 CLEMENT -[id number] Critical access hospital 2016-09-02 2016-09-02 Emergency ER UGORJI, [facility] [id number] 79 [place] 13:20:00 14:30:00 CLEMENT -[id number] Critical access hospital 2016-04-28 2016-04-29 Emergency ER OWO, [facility]KS [facility] [id number] [place] 22:59:00 01:22:00 -[id number] Critical access hospital 2015-09-28 2015-09-29 Emergency ER SAEMI, [facility] [id number] 79 [place] 21:04:00 08:15:00 NUNO -[id number] Critical access hospital 2015-05-05 2015-05-05 Emergency ER UGORJI, [facility] [id number] 79 [place] 19:34:00 21:26:00 CLEMENT -[id number] Critical access hospital 2014-11-07 2014-11-08 Emergency ER OWO, TOKS [facility] [id number] [place] 23:26:00 04:30:00 -[id number] Critical access hospital 2014-08-01 2014-08-01 Outpatient EL VALLOPPILLI [facility] D00 [id number] [place] 12:03:00 12:03:00 Mario Alberto AMDREAI -[id number] Critical access hospital 2011-12-29 2011-12-29 Emergency ER OTINWA, [facility] [id number] [place] 19:51:00 22:10:00 PARKER -[id number] Critical access hospital 2011-11-12 2011-11-12 Outpatient EL VALLOPPILLI [facility] D00 [id number] [place] 07:58:00 07:58:00 Mario Alberto AMMINI -[id number] Critical access hospital 2011-10-10 2011-10-11 Emergency ER , [facility] [id number] [place] 22:24:00 01:45:00 WASIM -[id number] Critical access hospital 2011-10-06 2011-10-06 Emergency ER JOHNNY, [facility] [id number] 79 [place] 00:27:00 06:30:00 CLEMENT -[id number] Critical access hospital 2011-09-08 2011-09-08 Outpatient EL VALLOPPILLI [facility] D00 [id number] [place] 11:57:00 11:57:00 L, AMMINI -[id number] Critical access hospital 2010-06-16 2010-06-17 Emergency ER LARISSA, [facility] [id number] [place] 18:00:00 04:05:00 ZBIGNIEW -[id number] vasquez deleon [facility] 2010-03-24 2010-03-24 Outpatient EL VALLOILLI [facility] D00 [id number] [place] 14:21:00 14:21:00 L, AMMINI -[id number] [facility] hospital Results Test Description Test Time Test Comments Results Result Comments Source Comprehensive metabolic 2000 panel - Serum or Plasma 2022-06 12:31:00 Test Item Value Reference Range Interpretation Comme nts glucose (test code = glucose) 106 mg/dL 74-106 blood urea nitrogen (test code = blood urea nitrogen) 6 mg/dL 6-20 osmolality calculated,serum (test code = osmolality 277 mOsm/kg 28 0-300 L calculated,serum) creatinine (test code = creatinine) 0.73 mg/dL 0.70-1.20 glomerular filtration rate (test code = glomerular > 60.00 filtration rate) BUN/creatinine ratio (test code = BUN/creatinine ratio) 8.2 12.0-20.0 L sodium level (test code = sodium level) 140 mmol/L 135-145 potassium level (test code = potassium level) 4.3 mmol/L 3.5-5.2 chloride level (test code = chloride level) 102 mmol/L 98-108 CO2 (test code = CO2) 26 mmol/L 21-32 anion gap (test code = anion gap) 16.3 mEq/L 12.0-20.0 calcium level (test code = calcium level) 9.4 mg/dL 8.6-10.0 total protein (test code = total protein) 8.4 g/dL 6.6-8.7 albumin (test code = albumin) 4.1 g/dL 3.5-5.2 globulin (test code = globulin) 4.3 g/dL 1.5-4.5 A/G ratio (test code = A/G ratio) 1.0 >1.0 bilirubin,total (test code = bilirubin,total) 0.5 mg/dL 0.0-1.2 AST/SGOT (test code = AST/SGOT) 41 U/L 15-40 H ALT/SGPT (test code = ALT/SGPT) 26 U/L 0-41 alkaline phosphatase, total (test code = alkaline 60 U/L 40-1 30 phosphatase, total) [facility] Test Item Value Reference Range Interpretation Comments lipase (test code = lipase) 290 U/L 13-60 H [facility] W Auto Differential panel - [id number] 12:07:00 Test Item Value Reference Range Interpretation Comments white blood count (test code = 11.1 K/uL 4.0-12.3 white blood count) red blood count (test code = red 4.90 M/uL 3.80-5.80 blood count) hemoglobin (test code = 15.1 g/dL 11.7-17.2 hemoglobin) hematocrit (test code = 47.3 % 35.0-51.0 hematocrit) mean corpuscular volume (test code 96.5 fL 83.0-100.0 = mean corpuscular volume) mean corpuscular hemoglobin (test 30.8 pg 26.8-33.4 code = mean corpuscular hemoglobin) mean corpuscular HGB conc (test 31.9 g/dL 30.0-35.0 code = mean corpuscular HGB conc) red cell distribution width (test 14.1 % 12.0-14.0 H code = red cell distribution width) platelet count (test code = 662 K/uL 175-450 H platelet count) mean platelet volume (test code = 11.1 fL 9.4-12.6 mean platelet volume) neutrophils % (test code = 64.9 % 44.7-82.4 neutrophils %) Ig% (test code = Ig%) 1.0 % 0.0-0.4 H lymphocyte% (test code = 22.4 % 10.0-50.0 lymphocyte%) mono % (test code = mono %) 6.4 % 3.9-13.4 eos % (test code = eos %) 4.7 % 0.0-6.4 basophil % (test code = basophil 0.6 % 0.2-1.2 %) absolute neutrophil count (test 7.23 K/uL 1.78-5.38 H code = absolute neutrophil count) Ig# (test code = Ig#) 0.11 K/uL 0.00-0.03 H lymph # (test code = lymph #) 2.49 K/uL 1.32-3.57 mono # (test code = mono #) 0.71 K/uL 0.30-0.82 eos # (test code = eos #) 0.52 K/uL 0.04-0.54 basophil # (test code = basophil 0.07 K/uL 0.01-0.08 #) NRBC% (test code = NRBC%) 0 /100 WBC 0-0.2 NRBC# (test code = NRBC#) 0 K[facility]L [facility]16 07:40:00 Test Item Value Reference Range Interpretation Comments neutrophils (test code = 79 % 37.0-80.0 neutrophils) band (test code = band) 3 % 0-3 lymphocyte (test code = 10 % 10-50 lymphocyte) atypical lymph (test code = 0 % atypical lymph) monocyte (test code = monocyte) 7 % 0-12 eosinophil (test code = 1 % 0-7 eosinophil) basophil (test code = basophil) 0 % 0-3 abs neutrophil count (man) (test 14.60 K/uL 1.78-5.38 H code = abs neutrophil count (man)) abs lymph count (man) (test code = 1.70 K/uL 1.32-3.57 abs lymph count (man)) abs monocyte count (man) (test 1.20 K/uL 0.30-0.82 H code = abs monocyte count (man)) abs eosinophil count (man) (test 0.10 K/uL 0.04-0.54 code = abs eosinophil count (man)) abs basophil count (man) (test 0.00 K/uL 0.01-0.08 L code = abs basophil count (man)) platelet estimate (test code = adequate adequate platelet estimate) platelet morphology (test code = normal normal platelet morphology) [facility] Test Item Value Reference Range Interpretation Comments lipase (test code = lipase) 432 U/L 13-60 H [facility] - Serum or Plasma 2022-06-16 07:06:00 Test Item Value Reference Range Interpretation Comments glucose (test code = glucose) 100 mg/dL 74-106 blood urea nitrogen (test code = 4 mg/dL 6-20 L blood urea nitrogen) osmolality calculated,serum (test 271 mOsm/kg 280-300 L code = osmolality calculated,serum) creatinine (test code = 0.42 mg/dL 0.70-1.20 L creatinine) glomerular filtration rate (test > 60.00 code = glomerular filtration rate) BUN/creatinine ratio (test code = 9.5 12.0-20.0 L BUN/creatinine ratio) sodium level (test code = sodium 137 mmol/L 135-145 level) potassium level (test code = 3.2 mmol/L 3.5-5.2 L potassium level) chloride level (test code = 103 mmol/L 98-108 chloride level) CO2 (test code = CO2) 24 mmol/L 21-32 anion gap (test code = anion gap) 13.2 mEq/L 12.0-20.0 calcium level (test code = 8.3 mg/dL 8.6-10.0 L calcium level) total protein (test code = total 6.3 g/dL 6.6-8.7 L protein) albumin (test code = albumin) 3.0 g/dL 3.5-5.2 L globulin (test code = globulin) 3.3 g/dL 1.5-4.5 A/G ratio (test code = A/G ratio) 0.9 >1.0 bilirubin,total (test code = 1.4 mg/dL 0.0-1.2 H bilirubin,total) AST/SGOT (test code = AST/SGOT) 65 U/L 15-40 H ALT/SGPT (test code = ALT/SGPT) 51 U/L 0-41 H alkaline phosphatase, total (test 93 U/L 40-130 code = alkaline phosphatase, total) [facility] Test Item Value Reference Range Interpretation Comments LDH (test code = LDH) 421 U/L 135-225 H [place] [id number] 07:06:00 Test Item Value Reference Range Interpretation Comments LDH (test code = LDH) 421 U/L 135-225 H [facility] W Auto Differential panel - [id number] 06:46:00 Test Item Value Reference Range Interpretation Comments white blood count (test 17.9 K/uL 4.0-12.3 H code = white blood count) red blood count (test code 3.72 M/uL 3.80-5.80 L = red blood count) hemoglobin (test code = 11.5 g/dL 11.7-17.2 L hemoglobin) hematocrit (test code = 34.6 % 35.0-51.0 L hematocrit) mean corpuscular volume 93.0 fL 83.0-100.0 (test code = mean corpuscular volume) mean corpuscular hemoglobin 30.9 pg 26.8-33.4 (test code = mean corpuscular hemoglobin) mean corpuscular HGB conc 33.2 g/dL 30.0-35.0 (test code = mean corpuscular HGB conc) red cell distribution width 13.9 % 12.0-14.0 (test code = red cell distribution width) platelet count (test code = 291 K/uL 175-450 platelet count) mean platelet volume (test 11.4 fL 9.4-12.6 code = mean platelet volume) NRBC% (test code = NRBC%) 0 /100 WBC 0-0.2 NRBC# (test code = NRBC#) 0 K/uL morphology comment (test normal RBC morph. normal RBC code = morphology comment) [facility] 11:10[facility]00 Test Item Value Reference Range Interpretation Comments lipase (test code = lipase) 478 U/L 13-60 H [facility] - Serum or Plasma 2022-06-15 11:04:00 Test Item Value Reference Range Interpretation Comments glucose (test code = glucose) 122 mg/dL 74-106 H blood urea nitrogen (test code = < 4 6-20 L blood urea nitrogen) osmolality calculated,serum (test 267 mOsm/kg 280-300 L code = osmolality calculated,serum) creatinine (test code = 0.52 mg/dL 0.70-1.20 L creatinine) glomerular filtration rate (test > 60.00 code = glomerular filtration rate) BUN/creatinine ratio (test code = 7.7 12.0-20.0 L BUN/creatinine ratio) sodium level (test code = sodium 134 mmol/L 135-145 L level) potassium level (test code = 3.0 mmol/L 3.5-5.2 L potassium level) chloride level (test code = 99 mmol/L 98-108 chloride level) CO2 (test code = CO2) 24 mmol/L 21-32 anion gap (test code = anion gap) 14.0 mEq/L 12.0-20.0 calcium level (test code = 8.4 mg/dL 8.6-10.0 L calcium level) total protein (test code = total 6.8 g/dL 6.6-8.7 protein) albumin (test code = albumin) 3.3 g/dL 3.5-5.2 L globulin (test code = globulin) 3.5 g/dL 1.5-4.5 A/G ratio (test code = A/G ratio) 0.9 >1.0 bilirubin,total (test code = 1.7 mg/dL 0.0-1.2 H bilirubin,total) AST/SGOT (test code = AST/SGOT) 68 U/L 15-40 H ALT/SGPT (test code = ALT/SGPT) 57 U/L 0-41 H alkaline phosphatase, total (test 82 U/L 40-130 code = alkaline phosphatase, total) [facility] Differential panel - [id number] 10:52:00 Test Item Value Reference Range Interpretation Comments white blood count (test 22.0 K/uL 4.0-12.3 H code = white blood count) red blood count (test code 3.92 M/uL 3.80-5.80 = red blood count) hemoglobin (test code = 12.0 g/dL 11.7-17.2 hemoglobin) hematocrit (test code = 36.0 % 35.0-51.0 hematocrit) mean corpuscular volume 91.8 fL 83.0-100.0 (test code = mean corpuscular volume) mean corpuscular hemoglobin 30.6 pg 26.8-33.4 (test code = mean corpuscular hemoglobin) mean corpuscular HGB conc 33.3 g/dL 30.0-35.0 (test code = mean corpuscular HGB conc) red cell distribution width 14.1 % 12.0-14.0 H (test code = red cell distribution width) platelet count (test code = 300 K/uL 175-450 platelet count) mean platelet volume (test 11.0 fL 9.4-12.6 code = mean platelet volume) neutrophils (test code = 71 % 37.0-80.0 neutrophils) band (test code = band) 6 % 0-3 H lymphocyte (test code = 8 % 10-50 L lymphocyte) atypical lymph (test code = 2 % H atypical lymph) monocyte (test code = 7 % 0-12 monocyte) eosinophil (test code = 4 % 0-7 eosinophil) basophil (test code = 0 % 0-3 basophil) metamyelocyte (test code = 2 % H metamyelocyte) morphology comment (test normal RBC morph. normal RBC code = morphology comment) abs neutrophil count (man) 16.90 K/uL 1.78-5.38 H (test code = abs neutrophil count (man)) abs lymph count (man) (test 2.20 K/uL 1.32-3.57 code = abs lymph count (man)) abs monocyte count (man) 1.50 K/uL 0.30-0.82 H (test code = abs monocyte count (man)) abs eosinophil count (man) 0.80 K/uL 0.04-0.54 H (test code = abs eosinophil count (man)) abs basophil count (man) 0.00 K/uL 0.01-0.08 L (test code = abs basophil count (man)) platelet estimate (test adequate adequate code = platelet estimate) platelet morphology (test normal normal code = platelet morphology) [facility]2022-06-14 05:46:00 Test Item Value Reference Range Interpretation Comments neutrophils (test code = 67 % 37.0-80.0 neutrophils) band (test code = band) 6 % 0-3 H lymphocyte (test code = 15 % 10-50 lymphocyte) atypical lymph (test code = 0 % atypical lymph) monocyte (test code = monocyte) 11 % 0-12 eosinophil (test code = 1 % 0-7 eosinophil) basophil (test code = basophil) 0 % 0-3 abs neutrophil count (man) (test 14.80 K/uL 1.78-5.38 H code = abs neutrophil count (man)) abs lymph count (man) (test code = 3.00 K/uL 1.32-3.57 abs lymph count (man)) abs monocyte count (man) (test 2.20 K/uL 0.30-0.82 H code = abs monocyte count (man)) abs eosinophil count (man) (test 0.20 K/uL 0.04-0.54 code = abs eosinophil count (man)) abs basophil count (man) (test 0.00 K/uL 0.01-0.08 L code = abs basophil count (man)) platelet estimate (test code = adequate adequate platelet estimate) platelet morphology (test code = normal normal platelet morphology) [facility] - Serum or Plasma 2022-06-14 05:30:00 Test Item Value Reference Range Interpretation Comments glucose (test code = glucose) 101 mg/dL 74-106 blood urea nitrogen (test code = 5 mg/dL 6-20 L blood urea nitrogen) osmolality calculated,serum (test 266 mOsm/kg 280-300 L code = osmolality calculated,serum) creatinine (test code = 0.50 mg/dL 0.70-1.20 L creatinine) glomerular filtration rate (test > 60.00 code = glomerular filtration rate) BUN/creatinine ratio (test code = 10.0 12.0-20.0 L BUN/creatinine ratio) sodium level (test code = sodium 134 mmol/L 135-145 L level) potassium level (test code = 3.1 mmol/L 3.5-5.2 L potassium level) chloride level (test code = 101 mmol/L 98-108 chloride level) CO2 (test code = CO2) 22 mmol/L 21-32 anion gap (test code = anion gap) 14.1 mEq/L 12.0-20.0 calcium level (test code = 8.0 mg/dL 8.6-10.0 L calcium level) total protein (test code = total 6.0 g/dL 6.6-8.7 L protein) albumin (test code = albumin) 2.9 g/dL 3.5-5.2 L globulin (test code = globulin) 3.1 g/dL 1.5-4.5 A/G ratio (test code = A/G ratio) 0.9 >1.0 bilirubin,total (test code = 2.0 mg/dL 0.0-1.2 H bilirubin,total) AST/SGOT (test code = AST/SGOT) 71 U/L 15-40 H ALT/SGPT (test code = ALT/SGPT) 58 U/L 0-41 H alkaline phosphatase, total (test 76 U/L 40-130 code = alkaline phosphatase, total) [facility] 05:30:00 Test Item Value Reference Range Interpretation Comments lipase (test code = lipase) 273 U/L 13-60 H [facility] W Auto Differential panel - [id number] 05:16:00 Test Item Value Reference Range Interpretation Comments white blood count (test 20.4 K/uL 4.0-12.3 H code = white blood count) red blood count (test code 3.80 M/uL 3.80-5.80 = red blood count) hemoglobin (test code = 11.7 g/dL 11.7-17.2 hemoglobin) hematocrit (test code = 35.2 % 35.0-51.0 hematocrit) mean corpuscular volume 92.6 fL 83.0-100.0 (test code = mean corpuscular volume) mean corpuscular hemoglobin 30.8 pg 26.8-33.4 (test code = mean corpuscular hemoglobin) mean corpuscular HGB conc 33.2 g/dL 30.0-35.0 (test code = mean corpuscular HGB conc) red cell distribution width 13.8 % 12.0-14.0 (test code = red cell distribution width) platelet count (test code = 256 K/uL 175-450 platelet count) mean platelet volume (test 11.1 fL 9.4-12.6 code = mean platelet volume) neutrophils % (test code = 68.8 % 44.7-82.4 neutrophils %) Ig% (test code = Ig%) 4.8 % 0.0-0.4 H lymphocyte% (test code = 10.3 % 10.0-50.0 lymphocyte%) mono % (test code = mono %) 13.0 % 3.9-13.4 eos % (test code = eos %) 2.4 % 0.0-6.4 basophil % (test code = 0.7 % 0.2-1.2 basophil %) absolute neutrophil count 14.06 K/uL 1.78-5.38 H (test code = absolute neutrophil count) Ig# (test code = Ig#) 0.98 K/uL 0.00-0.03 H lymph # (test code = lymph 2.10 K/uL 1.32-3.57 #) mono # (test code = mono #) 2.65 K/uL 0.30-0.82 H eos # (test code = eos #) 0.49 K/uL 0.04-0.54 basophil # (test code = 0.14 K/uL 0.01-0.08 H basophil #) NRBC% (test code = NRBC%) 0 /100 WBC 0-0.2 NRBC# (test code = NRBC#) 0 K/uL morphology comment (test normal RBC morph. normal RBC code = morphology comment) [facility]2022-06-13 11:13:00 Test Item Value Reference Range Interpretation Comments neutrophils (test code = 63 % 37.0-80.0 neutrophils) band (test code = band) 5 % 0-3 H lymphocyte (test code = 18 % 10-50 lymphocyte) atypical lymph (test code = 8 % H atypical lymph) monocyte (test code = monocyte) 3 % 0-12 eosinophil (test code = 3 % 0-7 eosinophil) abs neutrophil count (man) (test 15.30 K/uL 1.78-5.38 H code = abs neutrophil count (man)) abs lymph count (man) (test code = 5.80 K/uL 1.32-3.57 H abs lymph count (man)) abs monocyte count (man) (test 0.60 K/uL 0.30-0.82 code = abs monocyte count (man)) abs eosinophil count (man) (test 0.60 K/uL 0.04-0.54 H code = abs eosinophil count (man)) platelet estimate (test code = adequate adequate platelet estimate) platelet morphology (test code = normal normal platelet morphology) [facility] diff (reflexed)2022-06-13 11:13:00 Test Item Value Reference Range Interpretation Comments neutrophils (test code = 63 % 37.0-80.0 neutrophils) band (test code = band) 5 % 0-3 H lymphocyte (test code = 18 % 10-50 lymphocyte) atypical lymph (test code = 8 % H atypical lymph) monocyte (test code = monocyte) 3 % 0-12 eosinophil (test code = 3 % 0-7 eosinophil) basophil (test code = basophil) 0 % 0-3 abs neutrophil count (man) (test 15.30 K/uL 1.78-5.38 H code = abs neutrophil count (man)) abs lymph count (man) (test code = 5.80 K/uL 1.32-3.57 H abs lymph count (man)) abs monocyte count (man) (test 0.60 K/uL 0.30-0.82 code = abs monocyte count (man)) abs eosinophil count (man) (test 0.60 K/uL 0.04-0.54 H code = abs eosinophil count (man)) abs basophil count (man) (test 0.00 K/uL 0.01-0.08 L code = abs basophil count (man)) platelet estimate (test code = adequate adequate platelet estimate) platelet morphology (test code = normal normal platelet morphology) [facility] diff (reflexed)2022-06-13 11:13:00 Test Item Value Reference Range Interpretation Comments neutrophils (test code = 63 % 37.0-80.0 neutrophils) band (test code = band) 5 % 0-3 H lymphocyte (test code = 18 % 10-50 lymphocyte) atypical lymph (test code = 8 % H atypical lymph) monocyte (test code = monocyte) 3 % 0-12 eosinophil (test code = 3 % 0-7 eosinophil) abs neutrophil count (man) (test 15.30 K/uL 1.78-5.38 H code = abs neutrophil count (man)) abs lymph count (man) (test code = 5.80 K/uL 1.32-3.57 H abs lymph count (man)) abs monocyte count (man) (test 0.60 K/uL 0.30-0.82 code = abs monocyte count (man)) abs eosinophil count (man) (test 0.60 K/uL 0.04-0.54 H code = abs eosinophil count (man)) platelet estimate (test code = adequate adequate platelet estimate) platelet morphology (test code = normal normal platelet morphology) [facility]:13:00 Test Item Value Reference Range Interpretation Comments neutrophils (test code = 63 % 37.0-80.0 neutrophils) band (test code = band) 5 % 0-3 H lymphocyte (test code = 18 % 10-50 lymphocyte) atypical lymph (test code = 8 % H atypical lymph) monocyte (test code = monocyte) 3 % 0-12 eosinophil (test code = 3 % 0-7 eosinophil) basophil (test code = basophil) 0 % 0-3 abs neutrophil count (man) (test 15.30 K/uL 1.78-5.38 H code = abs neutrophil count (man)) abs lymph count (man) (test code = 5.80 K/uL 1.32-3.57 H abs lymph count (man)) abs monocyte count (man) (test 0.60 K/uL 0.30-0.82 code = abs monocyte count (man)) abs eosinophil count (man) (test 0.60 K/uL 0.04-0.54 H code = abs eosinophil count (man)) abs basophil count (man) (test 0.00 K/uL 0.01-0.08 L code = abs basophil count (man)) platelet estimate (test code = adequate adequate platelet estimate) platelet morphology (test code = normal normal platelet morphology) [facility] W Auto Differential panel - [id number] 08:26:00 Test Item Value Reference Range Interpretation Comments white blood count (test code = 22.6 K/uL 4.0-12.3 H white blood count) red blood count (test code = red 4.21 M/uL 3.80-5.80 blood count) hemoglobin (test code = 13.2 g/dL 11.7-17.2 hemoglobin) hematocrit (test code = 39.7 % 35.0-51.0 hematocrit) mean corpuscular volume (test code 94.3 fL 83.0-100.0 = mean corpuscular volume) mean corpuscular hemoglobin (test 31.4 pg 26.8-33.4 code = mean corpuscular hemoglobin) mean corpuscular HGB conc (test 33.2 g/dL 30.0-35.0 code = mean corpuscular HGB conc) red cell distribution width (test 13.6 % 12.0-14.0 code = red cell distribution width) platelet count (test code = 269 K/uL 175-450 platelet count) mean platelet volume (test code = 11.1 fL 9.4-12.6 mean platelet volume) NRBC% (test code = NRBC%) 0 /100 WBC 0-0.2 NRBC# (test code = NRBC#) 0 K/uL [facility] W Auto Differential panel - [id number] 08:26:00 Test Item Value Reference Range Interpretation Comments white blood count (test code = 22.6 K/uL 4.0-12.3 H white blood count) red blood count (test code = red 4.21 M/uL 3.80-5.80 blood count) hemoglobin (test code = 13.2 g/dL 11.7-17.2 hemoglobin) hematocrit (test code = 39.7 % 35.0-51.0 hematocrit) mean corpuscular volume (test code 94.3 fL 83.0-100.0 = mean corpuscular volume) mean corpuscular hemoglobin (test 31.4 pg 26.8-33.4 code = mean corpuscular hemoglobin) mean corpuscular HGB conc (test 33.2 g/dL 30.0-35.0 code = mean corpuscular HGB conc) red cell distribution width (test 13.6 % 12.0-14.0 code = red cell distribution width) platelet count (test code = 269 K/uL 175-450 platelet count) mean platelet volume (test code = 11.1 fL 9.4-12.6 mean platelet volume) NRBC% (test code = NRBC%) 0 /100 WBC 0-0.2 NRBC# (test code = NRBC#) 0 K/uL [facility] - Serum or Plasma 2022-06-13 08:22:00 Test Item Value Reference Range Interpretation Comments glucose (test code = glucose) 100 mg/dL 74-106 blood urea nitrogen (test code = 5 mg/dL 6-20 L blood urea nitrogen) osmolality calculated,serum (test 264 mOsm/kg 280-300 L code = osmolality calculated,serum) creatinine (test code = 0.50 mg/dL 0.70-1.20 L creatinine) glomerular filtration rate (test > 60.00 code = glomerular filtration rate) BUN/creatinine ratio (test code = 10.0 12.0-20.0 L BUN/creatinine ratio) sodium level (test code = sodium 133 mmol/L 135-145 L level) potassium level (test code = 3.2 mmol/L 3.5-5.2 L potassium level) chloride level (test code = 98 mmol/L 98-108 chloride level) CO2 (test code = CO2) 23 mmol/L 21-32 anion gap (test code = anion gap) 15.2 mEq/L 12.0-20.0 calcium level (test code = 8.7 mg/dL 8.6-10.0 calcium level) total protein (test code = total 6.8 g/dL 6.6-8.7 protein) albumin (test code = albumin) 3.2 g/dL 3.5-5.2 L globulin (test code = globulin) 3.6 g/dL 1.5-4.5 A/G ratio (test code = A/G ratio) 0.9 >1.0 bilirubin,total (test code = 2.8 mg/dL 0.0-1.2 H bilirubin,total) AST/SGOT (test code = AST/SGOT) 73 U/L 15-40 H ALT/SGPT (test code = ALT/SGPT) 71 U/L 0-41 H alkaline phosphatase, total (test 83 U/L 40-130 code = alkaline phosphatase, total) [facility] 08:22:00 Test Item Value Reference Range Interpretation Comments lipase (test code = lipase) 226 U/L 13-60 H [facility] - Serum or Plasma 2022-06-13 08:22:00 Test Item Value Reference Range Interpretation Comments glucose (test code = glucose) 100 mg/dL 74-106 blood urea nitrogen (test code = 5 mg/dL 6-20 L blood urea nitrogen) osmolality calculated,serum (test 264 mOsm/kg 280-300 L code = osmolality calculated,serum) creatinine (test code = 0.50 mg/dL 0.70-1.20 L creatinine) glomerular filtration rate (test > 60.00 code = glomerular filtration rate) BUN/creatinine ratio (test code = 10.0 12.0-20.0 L BUN/creatinine ratio) sodium level (test code = sodium 133 mmol/L 135-145 L level) potassium level (test code = 3.2 mmol/L 3.5-5.2 L potassium level) chloride level (test code = 98 mmol/L 98-108 chloride level) CO2 (test code = CO2) 23 mmol/L 21-32 anion gap (test code = anion gap) 15.2 mEq/L 12.0-20.0 calcium level (test code = 8.7 mg/dL 8.6-10.0 calcium level) total protein (test code = total 6.8 g/dL 6.6-8.7 protein) albumin (test code = albumin) 3.2 g/dL 3.5-5.2 L globulin (test code = globulin) 3.6 g/dL 1.5-4.5 A/G ratio (test code = A/G ratio) 0.9 >1.0 bilirubin,total (test code = 2.8 mg/dL 0.0-1.2 H bilirubin,total) AST/SGOT (test code = AST/SGOT) 73 U/L 15-40 H ALT/SGPT (test code = ALT/SGPT) 71 U/L 0-41 H alkaline phosphatase, total (test 83 U/L 40-130 code = alkaline phosphatase, total) [facility] 08:22[facility]00 Test Item Value Reference Range Interpretation Comments lipase (test code = lipase) 226 U/L 13-60 H [facility] - Serum or Plasma 2022-06-12 04:36:00 Test Item Value Reference Range Interpretation Comments glucose (test code = glucose) 84 mg/dL 74-106 blood urea nitrogen (test code = 5 mg/dL 6-20 L blood urea nitrogen) osmolality calculated,serum (test 250 mOsm/kg 280-300 L code = osmolality calculated,serum) creatinine (test code = 0.48 mg/dL 0.70-1.20 L creatinine) glomerular filtration rate (test > 60.00 code = glomerular filtration rate) BUN/creatinine ratio (test code = 10.4 12.0-20.0 L BUN/creatinine ratio) sodium level (test code = sodium 126 mmol/L 135-145 L level) potassium level (test code = 2.8 mmol/L 3.5-5.2 L potassium level) chloride level (test code = 90 mmol/L 98-108 L chloride level) CO2 (test code = CO2) 21 mmol/L 21-32 anion gap (test code = anion gap) 17.8 mEq/L 12.0-20.0 calcium level (test code = 6.9 mg/dL 8.6-10.0 L calcium level) total protein (test code = total 5.3 g/dL 6.6-8.7 L protein) albumin (test code = albumin) 2.6 g/dL 3.5-5.2 L globulin (test code = globulin) 2.7 g/dL 1.5-4.5 A/G ratio (test code = A/G ratio) 1.0 >1.0 bilirubin,total (test code = 2.2 mg/dL 0.0-1.2 H bilirubin,total) AST/SGOT (test code = AST/SGOT) 58 U/L 15-40 H ALT/SGPT (test code = ALT/SGPT) 61 U/L 0-41 H alkaline phosphatase, total (test 56 U/L 40-130 code = alkaline phosphatase, total) [facility] 04:36:00 Test Item Value Reference Range Interpretation Comments lipase (test code = lipase) 102 U/L 13-60 H [facility] 04:36:00 Test Item Value Reference Range Interpretation Comments lipase (test code = lipase) 102 U/L 13-60 H [facility] 2000 [facility] - Serum or Plasma 2022-06-12 04:36:00 Test Item Value Reference Range Interpretation Comments glucose (test code = glucose) 84 mg/dL 74-106 blood urea nitrogen (test code = 5 mg/dL 6-20 L blood urea nitrogen) osmolality calculated,serum (test 250 mOsm/kg 280-300 L code = osmolality calculated,serum) creatinine (test code = 0.48 mg/dL 0.70-1.20 L creatinine) glomerular filtration rate (test > 60.00 code = glomerular filtration rate) BUN/creatinine ratio (test code = 10.4 12.0-20.0 L BUN/creatinine ratio) sodium level (test code = sodium 126 mmol/L 135-145 L level) potassium level (test code = 2.8 mmol/L 3.5-5.2 L potassium level) chloride level (test code = 90 mmol/L 98-108 L chloride level) CO2 (test code = CO2) 21 mmol/L 21-32 anion gap (test code = anion gap) 17.8 mEq/L 12.0-20.0 calcium level (test code = 6.9 mg/dL 8.6-10.0 L calcium level) total protein (test code = total 5.3 g/dL 6.6-8.7 L protein) albumin (test code = albumin) 2.6 g/dL 3.5-5.2 L globulin (test code = globulin) 2.7 g/dL 1.5-4.5 A/G ratio (test code = A/G ratio) 1.0 >1.0 bilirubin,total (test code = 2.2 mg/dL 0.0-1.2 H bilirubin,total) AST/SGOT (test code = AST/SGOT) 58 U/L 15-40 H ALT/SGPT (test code = ALT/SGPT) 61 U/L 0-41 H alkaline phosphatase, total (test 56 U/L 40-130 code = alkaline phosphatase, total) [facility] 04:36:00 Test Item Value Reference Range Interpretation Comments lipase (test code = lipase) 102 U/L 13-60 H [facility] 04:36:00 Test Item Value Reference Range Interpretation Comments lipase (test code = lipase) 102 U/L 13-60 H [facility] Differential [facility] - [id number] 04:18:00 Test Item Value Reference Range Interpretation Comments white blood count (test code = 18.5 K/uL 4.0-12.3 H white blood count) red blood count (test code = red 3.78 M/uL 3.80-5.80 L blood count) hemoglobin (test code = 11.8 g/dL 11.7-17.2 hemoglobin) hematocrit (test code = 35.9 % 35.0-51.0 hematocrit) mean corpuscular volume (test code 95.0 fL 83.0-100.0 = mean corpuscular volume) mean corpuscular hemoglobin (test 31.2 pg 26.8-33.4 code = mean corpuscular hemoglobin) mean corpuscular HGB conc (test 32.9 g/dL 30.0-35.0 code = mean corpuscular HGB conc) red cell distribution width (test 13.8 % 12.0-14.0 code = red cell distribution width) platelet count (test code = 221 K/uL 175-450 platelet count) mean platelet volume (test code = 11.3 fL 9.4-12.6 mean platelet volume) neutrophils % (test code = 72.6 % 44.7-82.4 neutrophils %) Ig% (test code = Ig%) 1.7 % 0.0-0.4 H lymphocyte% (test code = 9.5 % 10.0-50.0 L lymphocyte%) mono % (test code = mono %) 12.3 % 3.9-13.4 eos % (test code = eos %) 3.6 % 0.0-6.4 basophil % (test code = basophil 0.3 % 0.2-1.2 %) absolute neutrophil count (test 13.40 K/uL 1.78-5.38 H code = absolute neutrophil count) Ig# (test code = Ig#) 0.32 K/uL 0.00-0.03 H lymph # (test code = lymph #) 1.76 K/uL 1.32-3.57 mono # (test code = mono #) 2.28 K/uL 0.30-0.82 H eos # (test code = eos #) 0.66 K/uL 0.04-0.54 H basophil # (test code = basophil 0.06 K/uL 0.01-0.08 #) NRBC% (test code = NRBC%) 0 /100 WBC 0-0.2 NRBC# (test code = NRBC#) 0 K/uL [facility] W Auto Differential panel - [id number] 04:18:00 Test Item Value Reference Range Interpretation Comments white blood count (test code = 18.5 K/uL 4.0-12.3 H white blood count) red blood count (test code = red 3.78 M/uL 3.80-5.80 L blood count) hemoglobin (test code = 11.8 g/dL 11.7-17.2 hemoglobin) hematocrit (test code = 35.9 % 35.0-51.0 hematocrit) mean corpuscular volume (test code 95.0 fL 83.0-100.0 = mean corpuscular volume) mean corpuscular hemoglobin (test 31.2 pg 26.8-33.4 code = mean corpuscular hemoglobin) mean corpuscular HGB conc (test 32.9 g/dL 30.0-35.0 code = mean corpuscular HGB conc) red cell distribution width (test 13.8 % 12.0-14.0 code = red cell distribution width) platelet count (test code = 221 K/uL 175-450 platelet count) mean platelet volume (test code = 11.3 fL 9.4-12.6 mean platelet volume) neutrophils % (test code = 72.6 % 44.7-82.4 neutrophils %) Ig% (test code = Ig%) 1.7 % 0.0-0.4 H lymphocyte% (test code = 9.5 % 10.0-50.0 L lymphocyte%) mono % (test code = mono %) 12.3 % 3.9-13.4 eos % (test code = eos %) 3.6 % 0.0-6.4 basophil % (test code = basophil 0.3 % 0.2-1.2 %) absolute neutrophil count (test 13.40 K/uL 1.78-5.38 H code = absolute neutrophil count) Ig# (test code = Ig#) 0.32 K/uL 0.00-0.03 H lymph # (test code = lymph #) 1.76 K/uL 1.32-3.57 mono # (test code = mono #) 2.28 K/uL 0.30-0.82 H eos # (test code = eos #) 0.66 K/uL 0.04-0.54 H basophil # (test code = basophil 0.06 K/uL 0.01-0.08 #) NRBC% (test code = NRBC%) 0 /100 WBC 0-0.2 NRBC# (test code = NRBC#) 0 K/uL [place] [id number] 08:39:00 Test Item Value Reference Range Interpretation Comments LDH (test code = LDH) 457 U/L 135-225 H [place] [id number] 08:39:00 Test Item Value Reference Range Interpretation Comments LDH (test code = LDH) 457 U/L 135-[address] [facility] [id number] 08:26:00 Test Item Value Reference Range Interpretation Comments lactic acid (test code = lactic 1.12 mmol/L 0.5-2.2 acid) [facility] [id number] 08:26:00 Test Item Value Reference Range Interpretation Comments lactic acid (test code = lactic 1.12 mmol/L 0.5-2.2 acid) [facility] Test Item Value Reference Range Interpretation Comments lipase (test code = lipase) 136 U/L 13-60 H [facility] 07:47:00 Test Item Value Reference Range Interpretation Comments lipase (test code = lipase) 136 U/L 13-60 H [facility] or Plasma 2022-06-11 07:46:00 Test Item Value Reference Range Interpretation Comments glucose (test code = glucose) 122 mg/dL 74-106 H blood urea nitrogen (test code = 5 mg/dL 6-20 L blood urea nitrogen) osmolality calculated,serum (test 263 mOsm/kg 280-300 L code = osmolality calculated,serum) creatinine (test code = 0.60 mg/dL 0.70-1.20 L creatinine) glomerular filtration rate (test > 60.00 code = glomerular filtration rate) BUN/creatinine ratio (test code = 8.3 12.0-20.0 L BUN/creatinine ratio) sodium level (test code = sodium 132 mmol/L 135-145 L level) potassium level (test code = 3.2 mmol/L 3.5-5.2 L potassium level) chloride level (test code = 98 mmol/L 98-108 chloride level) CO2 (test code = CO2) 23 mmol/L 21-32 anion gap (test code = anion gap) 14.2 mEq/L 12.0-20.0 calcium level (test code = 8.2 mg/dL 8.6-10.0 L calcium level) total protein (test code = total 6.4 g/dL 6.6-8.7 L protein) albumin (test code = albumin) 3.3 g/dL 3.5-5.2 L globulin (test code = globulin) 3.1 g/dL 1.5-4.5 A/G ratio (test code = A/G ratio) 1.1 >1.0 bilirubin,total (test code = 2.4 mg/dL 0.0-1.2 H bilirubin,total) AST/SGOT (test code = AST/SGOT) 69 U/L 15-40 H ALT/SGPT (test code = ALT/SGPT) 81 U/L 0-41 H alkaline phosphatase, total (test 65 U/L 40-130 code = alkaline phosphatase, total) [facility] 2022-06-11 07:46:00 Test Item Value Reference Range Interpretation Comments glucose (test code = glucose) 122 mg/dL 74-106 H blood urea nitrogen (test code = 5 mg/dL 6-20 L blood urea nitrogen) osmolality calculated,serum (test 263 mOsm/kg 280-300 L code = osmolality calculated,serum) creatinine (test code = 0.60 mg/dL 0.70-1.20 L creatinine) glomerular filtration rate (test > 60.00 code = glomerular filtration rate) BUN/creatinine ratio (test code = 8.3 12.0-20.0 L BUN/creatinine ratio) sodium level (test code = sodium 132 mmol/L 135-145 L level) potassium level (test code = 3.2 mmol/L 3.5-5.2 L potassium level) chloride level (test code = 98 mmol/L 98-108 chloride level) CO2 (test code = CO2) 23 mmol/L 21-32 anion gap (test code = anion gap) 14.2 mEq/L 12.0-20.0 calcium level (test code = 8.2 mg/dL 8.6-10.0 L calcium level) total protein (test code = total 6.4 g/dL 6.6-8.7 L protein) albumin (test code = albumin) 3.3 g/dL 3.5-5.2 L globulin (test code = globulin) 3.1 g/dL 1.5-4.5 A/G ratio (test code = A/G ratio) 1.1 >1.0 bilirubin,total (test code = 2.4 mg/dL 0.0-1.2 H bilirubin,total) AST/SGOT (test code = AST/SGOT) 69 U/L 15-40 H ALT/SGPT (test code = ALT/SGPT) 81 U/L 0-41 H alkaline phosphatase, total (test 65 U/L 40-130 code = alkaline phosphatase, total) [facility] 07:30:00 Test Item Value Reference Range Interpretation Comments neutrophils (test code = 77 % 37.0-80.0 neutrophils) band (test code = band) 0 % 0-3 lymphocyte (test code = 11 % 10-50 lymphocyte) atypical lymph (test code = 0 % atypical lymph) monocyte (test code = monocyte) 12 % 0-12 eosinophil (test code = 0 % 0-7 eosinophil) basophil (test code = basophil) 0 % 0-3 abs neutrophil count (man) (test 16.60 K/uL 1.78-5.38 H code = abs neutrophil count (man)) abs lymph count (man) (test code = 2.30 K/uL 1.32-3.57 abs lymph count (man)) abs monocyte count (man) (test 2.50 K/uL 0.30-0.82 H code = abs monocyte count (man)) abs eosinophil count (man) (test 0.00 K/uL 0.04-0.54 L code = abs eosinophil count (man)) abs basophil count (man) (test 0.00 K/uL 0.01-0.08 L code = abs basophil count (man)) platelet estimate (test code = adequate adequate platelet estimate) platelet morphology (test code = normal normal platelet morphology) [facility]:30:00 Test Item Value Reference Range Interpretation Comments neutrophils (test code = 77 % 37.0-80.0 neutrophils) band (test code = band) 0 % 0-3 lymphocyte (test code = 11 % 10-50 lymphocyte) atypical lymph (test code = 0 % atypical lymph) monocyte (test code = monocyte) 12 % 0-12 eosinophil (test code = 0 % 0-7 eosinophil) basophil (test code = basophil) 0 % 0-3 abs neutrophil count (man) (test 16.60 K/uL 1.78-5.38 H code = abs neutrophil count (man)) abs lymph count (man) (test code = 2.30 K/uL 1.32-3.57 abs lymph count (man)) abs monocyte count (man) (test 2.50 K/uL 0.30-0.82 H code = abs monocyte count (man)) abs eosinophil count (man) (test 0.00 K/uL 0.04-0.54 L code = abs eosinophil count (man)) abs basophil count (man) (test 0.00 K/uL 0.01-0.08 L code = abs basophil count (man)) platelet estimate (test code = adequate adequate platelet estimate) platelet morphology (test code = normal normal platelet morphology) [facility] W Auto Differential panel - [id number] 07:23:00 Test Item Value Reference Range Interpretation Comments white blood count (test 21.6 K/uL 4.0-12.3 H code = white blood count) red blood count (test code 4.31 M/uL 3.80-5.80 = red blood count) hemoglobin (test code = 13.6 g/dL 11.7-17.2 hemoglobin) hematocrit (test code = 40.6 % 35.0-51.0 hematocrit) mean corpuscular volume 94.2 fL 83.0-100.0 (test code = mean corpuscular volume) mean corpuscular hemoglobin 31.6 pg 26.8-33.4 (test code = mean corpuscular hemoglobin) mean corpuscular HGB conc 33.5 g/dL 30.0-35.0 (test code = mean corpuscular HGB conc) red cell distribution width 13.7 % 12.0-14.0 (test code = red cell distribution width) platelet count (test code = 228 K/uL 175-450 platelet count) mean platelet volume (test 11.4 fL 9.4-12.6 code = mean platelet volume) neutrophils % (test code = 73.2 % 44.7-82.4 neutrophils %) Ig% (test code = Ig%) 1.2 % 0.0-0.4 H lymphocyte% (test code = 10.8 % 10.0-50.0 lymphocyte%) mono % (test code = mono %) 11.0 % 3.9-13.4 eos % (test code = eos %) 3.4 % 0.0-6.4 basophil % (test code = 0.4 % 0.2-1.2 basophil %) absolute neutrophil count 15.77 K/uL 1.78-5.38 H (test code = absolute neutrophil count) Ig# (test code = Ig#) 0.26 K/uL 0.00-0.03 H lymph # (test code = lymph 2.33 K/uL 1.32-3.57 #) mono # (test code = mono #) 2.37 K/uL 0.30-0.82 H eos # (test code = eos #) 0.74 K/uL 0.04-0.54 H basophil # (test code = 0.08 K/uL 0.01-0.08 basophil #) NRBC% (test code = NRBC%) 0 /100 WBC 0-0.2 NRBC# (test code = NRBC#) 0 K/uL morphology comment (test normal RBC morph. normal RBC code = morphology comment) [facility] W Auto Differential panel - [id number] 07:23:00 Test Item Value Reference Range Interpretation Comments white blood count (test 21.6 K/uL 4.0-12.3 H code = white blood count) red blood count (test code 4.31 M/uL 3.80-5.80 = red blood count) hemoglobin (test code = 13.6 g/dL 11.7-17.2 hemoglobin) hematocrit (test code = 40.6 % 35.0-51.0 hematocrit) mean corpuscular volume 94.2 fL 83.0-100.0 (test code = mean corpuscular volume) mean corpuscular hemoglobin 31.6 pg 26.8-33.4 (test code = mean corpuscular hemoglobin) mean corpuscular HGB conc 33.5 g/dL 30.0-35.0 (test code = mean corpuscular HGB conc) red cell distribution width 13.7 % 12.0-14.0 (test code = red cell distribution width) platelet count (test code = 228 K/uL 175-450 platelet count) mean platelet volume (test 11.4 fL 9.4-12.6 code = mean platelet volume) neutrophils % (test code = 73.2 % 44.7-82.4 neutrophils %) Ig% (test code = Ig%) 1.2 % 0.0-0.4 H lymphocyte% (test code = 10.8 % 10.0-50.0 lymphocyte%) mono % (test code = mono %) 11.0 % 3.9-13.4 eos % (test code = eos %) 3.4 % 0.0-6.4 basophil % (test code = 0.4 % 0.2-1.2 basophil %) absolute neutrophil count 15.77 K/uL 1.78-5.38 H (test code = absolute neutrophil count) Ig# (test code = Ig#) 0.26 K/uL 0.00-0.03 H lymph # (test code = lymph 2.33 K/uL 1.32-3.57 #) mono # (test code = mono #) 2.37 K/uL 0.30-0.82 H eos # (test code = eos #) 0.74 K/uL 0.04-0.54 H basophil # (test code = 0.08 K/uL 0.01-0.08 basophil #) NRBC% (test code = NRBC%) 0 /100 WBC 0-0.2 NRBC# (test code = NRBC#) 0 K/uL morphology comment (test normal RBC morph. normal RBC code = morphology comment) [facility] panel - Arterial [id number] 15:03:00 Test Item Value Reference Range Interpretation Comments arterial blood gas pH (test code 7.42 7.35-7.45 = arterial blood gas pH) abgpco2 (test code = abgpco2) 38 mmHg 35-45 ABG pO2 (test code = ABG pO2) 51 mmHg 75-100 L ABG HCO3 (test code = ABG HCO3) 24.7 mmol/L 22-26 ABG base excess (test code = ABG 0.4 mmol/l -2.0-2.0 base excess) ABG CO2,total (test code = ABG 22.0 mEq/L 23.0-33.0 L CO2,total) ABG O2 saturation (test code = 89 % 95-100 L ABG O2 saturation) O2 content (test code = O2 7.9 mmol/L content) [facility] panel - Arterial [id number] 15:03:00 Test Item Value Reference Range Interpretation Comments arterial blood gas pH (test code 7.42 7.35-7.45 = arterial blood gas pH) abgpco2 (test code = abgpco2) 38 mmHg 35-45 ABG pO2 (test code = ABG pO2) 51 mmHg 75-100 L ABG HCO3 (test code = ABG HCO3) 24.7 mmol/L 22-26 ABG base excess (test code = ABG 0.4 mmol/l -2.0-2.0 base excess) ABG CO2,total (test code = ABG 22.0 mEq/L 23.0-33.0 L CO2,total) ABG O2 saturation (test code = 89 % 95-100 L ABG O2 saturation) O2 content (test code = O2 7.9 mmol/L content) [id number] 13:03:00 Test Item Value Reference Range Interpretation Comments blood culture (test code = final report. blood culture) [facility] [id number] 13:03:00 Test Item Value Reference Range Interpretation Comments blood culture (test code = final report. blood culture) [facility] diff (reflexed)2022-06-10 07:41:00 Test Item Value Reference Range Interpretation Comments neutrophils (test code = 83 % 37.0-80.0 H neutrophils) band (test code = band) 2 % 0-3 lymphocyte (test code = 8 % 10-50 L lymphocyte) atypical lymph (test code = 0 % atypical lymph) monocyte (test code = monocyte) 7 % 0-12 eosinophil (test code = 0 % 0-7 eosinophil) basophil (test code = basophil) 0 % 0-3 abs neutrophil count (man) (test 17.80 K/uL 1.78-5.38 H code = abs neutrophil count (man)) abs lymph count (man) (test code = 1.60 K/uL 1.32-3.57 abs lymph count (man)) abs monocyte count (man) (test 1.40 K/uL 0.30-0.82 H code = abs monocyte count (man)) abs eosinophil count (man) (test 0.00 K/uL 0.04-0.54 L code = abs eosinophil count (man)) abs basophil count (man) (test 0.00 K/uL 0.01-0.08 L code = abs basophil count (man)) platelet estimate (test code = adequate adequate platelet estimate) platelet morphology (test code = normal normal platelet morphology) [facility] diff (reflexed)2022-06-10 07:41:00 Test Item Value Reference Range Interpretation Comments neutrophils (test code = 83 % 37.0-80.0 H neutrophils) band (test code = band) 2 % 0-3 lymphocyte (test code = 8 % 10-50 L lymphocyte) atypical lymph (test code = 0 % atypical lymph) monocyte (test code = monocyte) 7 % 0-12 eosinophil (test code = 0 % 0-7 eosinophil) basophil (test code = basophil) 0 % 0-3 abs neutrophil count (man) (test 17.80 K/uL 1.78-5.38 H code = abs neutrophil count (man)) abs lymph count (man) (test code = 1.60 K/uL 1.32-3.57 abs lymph count (man)) abs monocyte count (man) (test 1.40 K/uL 0.30-0.82 H code = abs monocyte count (man)) abs eosinophil count (man) (test 0.00 K/uL 0.04-0.54 L code = abs eosinophil count (man)) abs basophil count (man) (test 0.00 K/uL 0.01-0.08 L code = abs basophil count (man)) platelet estimate (test code = adequate adequate platelet estimate) platelet morphology (test code = normal normal platelet morphology) [facility] Test Item Value Reference Range Interpretation Comments LDH (test code = LDH) 319 U/L 135-225 H [facility] 07:33:00 Test Item Value Reference Range Interpretation Comments LDH (test code = LDH) 319 U/L 135-225 H [facility] - Serum or Plasma 2022-06-10 07:28:00 Test Item Value Reference Range Interpretation Comments glucose (test code = glucose) 113 mg/dL 74-106 H blood urea nitrogen (test code = 8 mg/dL 6-20 blood urea nitrogen) osmolality calculated,serum (test 271 mOsm/kg 280-300 L code = osmolality calculated,serum) creatinine (test code = 0.65 mg/dL 0.70-1.20 L creatinine) glomerular filtration rate (test > 60.00 code = glomerular filtration rate) BUN/creatinine ratio (test code = 12.3 12.0-20.0 BUN/creatinine ratio) sodium level (test code = sodium 136 mmol/L 135-145 level) potassium level (test code = 3.5 mmol/L 3.5-5.2 potassium level) chloride level (test code = 101 mmol/L 98-108 chloride level) CO2 (test code = CO2) 26 mmol/L 21-32 anion gap (test code = anion gap) 12.5 mEq/L 12.0-20.0 calcium level (test code = 8.0 mg/dL 8.6-10.0 L calcium level) total protein (test code = total 6.2 g/dL 6.6-8.7 L protein) albumin (test code = albumin) 3.3 g/dL 3.5-5.2 L globulin (test code = globulin) 2.9 g/dL 1.5-4.5 A/G ratio (test code = A/G ratio) 1.1 >1.0 bilirubin,total (test code = 2.1 mg/dL 0.0-1.2 H bilirubin,total) AST/SGOT (test code = AST/SGOT) 54 U/L 15-40 H ALT/SGPT (test code = ALT/SGPT) 81 U/L 0-41 H alkaline phosphatase, total (test 65 U/L 40-130 code = alkaline phosphatase, total) [facility] Test Item Value Reference Range Interpretation Comments lipase (test code = lipase) 297 U/L 13-60 H [facility] - Serum or Plasma 2022-06-10 07:28:00 Test Item Value Reference Range Interpretation Comments glucose (test code = glucose) 113 mg/dL 74-106 H blood urea nitrogen (test code = 8 mg/dL 6-20 blood urea nitrogen) osmolality calculated,serum (test 271 mOsm/kg 280-300 L code = osmolality calculated,serum) creatinine (test code = 0.65 mg/dL 0.70-1.20 L creatinine) glomerular filtration rate (test > 60.00 code = glomerular filtration rate) BUN/creatinine ratio (test code = 12.3 12.0-20.0 BUN/creatinine ratio) sodium level (test code = sodium 136 mmol/L 135-145 level) potassium level (test code = 3.5 mmol/L 3.5-5.2 potassium level) chloride level (test code = 101 mmol/L 98-108 chloride level) CO2 (test code = CO2) 26 mmol/L 21-32 anion gap (test code = anion gap) 12.5 mEq/L 12.0-20.0 calcium level (test code = 8.0 mg/dL 8.6-10.0 L calcium level) total protein (test code = total 6.2 g/dL 6.6-8.7 L protein) albumin (test code = albumin) 3.3 g/dL 3.5-5.2 L globulin (test code = globulin) 2.9 g/dL 1.5-4.5 A/G ratio (test code = A/G ratio) 1.1 >1.0 bilirubin,total (test code = 2.1 mg/dL 0.0-1.2 H bilirubin,total) AST/SGOT (test code = AST/SGOT) 54 U/L 15-40 H ALT/SGPT (test code = ALT/SGPT) 81 U/L 0-41 H alkaline phosphatase, total (test 65 U/L 40-130 code = alkaline phosphatase, total) [facility] 07:28[facility]00 Test Item Value Reference Range Interpretation Comments lipase (test code = lipase) 297 U/L 13-60 H [facility] [id number] 07:26:00 Test Item Value Reference Range Interpretation Comments lactic acid (test code = lactic 1.18 mmol/L 0.5-2.2 acid) [facility] [id number] 07:26:00 Test Item Value Reference Range Interpretation Comments lactic acid (test code = lactic 1.18 mmol/L 0.5-2.2 acid) [facility] [id number] 06:53:00 Test Item Value Reference Range Interpretation Comments ionized calcium (test code = 4.17 mg/dL 4.34-5.00 L ionized calcium) [facility] W Auto Differential panel - [id number] 06:53:00 Test Item Value Reference Range Interpretation Comments white blood count (test 21.0 K/uL 4.0-12.3 H code = white blood count) red blood count (test code 4.71 M/uL 3.80-5.80 = red blood count) hemoglobin (test code = 14.8 g/dL 11.7-17.2 hemoglobin) hematocrit (test code = 44.9 % 35.0-51.0 hematocrit) mean corpuscular volume 95.3 fL 83.0-100.0 (test code = mean corpuscular volume) mean corpuscular hemoglobin 31.4 pg 26.8-33.4 (test code = mean corpuscular hemoglobin) mean corpuscular HGB conc 33.0 g/dL 30.0-35.0 (test code = mean corpuscular HGB conc) red cell distribution width 13.7 % 12.0-14.0 (test code = red cell distribution width) platelet count (test code = 195 K/uL 175-450 platelet count) mean platelet volume (test 11.1 fL 9.4-12.6 code = mean platelet volume) neutrophils % (test code = 79.1 % 44.7-82.4 neutrophils %) Ig% (test code = Ig%) 1.1 % 0.0-0.4 H lymphocyte% (test code = 7.8 % 10.0-50.0 L lymphocyte%) mono % (test code = mono %) 9.8 % 3.9-13.4 eos % (test code = eos %) 1.9 % 0.0-6.4 basophil % (test code = 0.3 % 0.2-1.2 basophil %) absolute neutrophil count 16.59 K/uL 1.78-5.38 H (test code = absolute neutrophil count) Ig# (test code = Ig#) 0.23 K/uL 0.00-0.03 H lymph # (test code = lymph 1.64 K/uL 1.32-3.57 #) mono # (test code = mono #) 2.06 K/uL 0.30-0.82 H eos # (test code = eos #) 0.39 K/uL 0.04-0.54 basophil # (test code = 0.07 K/uL 0.01-0.08 basophil #) NRBC% (test code = NRBC%) 0 /100 WBC 0-0.2 NRBC# (test code = NRBC#) 0 K/uL morphology comment (test normal RBC morph. normal RBC code = morphology comment) [facility] [id number] 06:53:00 Test Item Value Reference Range Interpretation Comments ionized calcium (test code = 4.17 mg/dL 4.34-5.00 L ionized calcium) [facility] W Auto Differential panel - [id number] 06:53:00 Test Item Value Reference Range Interpretation Comments white blood count (test 21.0 K/uL 4.0-12.3 H code = white blood count) red blood count (test code 4.71 M/uL 3.80-5.80 = red blood count) hemoglobin (test code = 14.8 g/dL 11.7-17.2 hemoglobin) hematocrit (test code = 44.9 % 35.0-51.0 hematocrit) mean corpuscular volume 95.3 fL 83.0-100.0 (test code = mean corpuscular volume) mean corpuscular hemoglobin 31.4 pg 26.8-33.4 (test code = mean corpuscular hemoglobin) mean corpuscular HGB conc 33.0 g/dL 30.0-35.0 (test code = mean corpuscular HGB conc) red cell distribution width 13.7 % 12.0-14.0 (test code = red cell distribution width) platelet count (test code = 195 K/uL 175-450 platelet count) mean platelet volume (test 11.1 fL 9.4-12.6 code = mean platelet volume) neutrophils % (test code = 79.1 % 44.7-82.4 neutrophils %) Ig% (test code = Ig%) 1.1 % 0.0-0.4 H lymphocyte% (test code = 7.8 % 10.0-50.0 L lymphocyte%) mono % (test code = mono %) 9.8 % 3.9-13.4 eos % (test code = eos %) 1.9 % 0.0-6.4 basophil % (test code = 0.3 % 0.2-1.2 basophil %) absolute neutrophil count 16.59 K/uL 1.78-5.38 H (test code = absolute neutrophil count) Ig# (test code = Ig#) 0.23 K/uL 0.00-0.03 H lymph # (test code = lymph 1.64 K/uL 1.32-3.57 #) mono # (test code = mono #) 2.06 K/uL 0.30-0.82 H eos # (test code = eos #) 0.39 K/uL 0.04-0.54 basophil # (test code = 0.07 K/uL 0.01-0.08 basophil #) NRBC% (test code = NRBC%) 0 /100 WBC 0-0.2 NRBC# (test code = NRBC#) 0 K/uL morphology comment (test normal RBC morph. normal RBC code = morphology comment) [facility]00 Test Item Value Reference Range Interpretation Comments lipase (test code = lipase) 1018 U/L 13-60 H [facility] 06:34:00 Test Item Value Reference Range Interpretation Comments lipase (test code = lipase) 1018 U/L 13-60 H [facility] 06:33:00 Test Item Value Reference Range Interpretation Comments LDH (test code = LDH) 296 U/L 135-225 H [place] [id number] 06:33:00 Test Item Value Reference Range Interpretation Comments LDH (test code = LDH) 296 U/L 135-225 H [facility] - [facility] or Plasma 2022-06-09 06:27:00 Test Item Value Reference Range Interpretation Comments glucose (test code = glucose) 110 mg/dL 74-106 H blood urea nitrogen (test code = 9 mg/dL 6-20 blood urea nitrogen) osmolality calculated,serum (test 273 mOsm/kg 280-300 L code = osmolality calculated,serum) creatinine (test code = 0.61 mg/dL 0.70-1.20 L creatinine) glomerular filtration rate (test > 60.00 code = glomerular filtration rate) BUN/creatinine ratio (test code = 14.8 12.0-20.0 BUN/creatinine ratio) sodium level (test code = sodium 137 mmol/L 135-145 level) potassium level (test code = 3.5 mmol/L 3.5-5.2 potassium level) chloride level (test code = 104 mmol/L 98-108 chloride level) CO2 (test code = CO2) 24 mmol/L 21-32 anion gap (test code = anion gap) 12.5 mEq/L 12.0-20.0 calcium level (test code = 8.1 mg/dL 8.6-10.0 L calcium level) total protein (test code = total 6.3 g/dL 6.6-8.7 L protein) albumin (test code = albumin) 3.5 g/dL 3.5-5.2 globulin (test code = globulin) 2.8 g/dL 1.5-4.5 A/G ratio (test code = A/G ratio) 1.3 >1.0 bilirubin,total (test code = 1.7 mg/dL 0.0-1.2 H bilirubin,total) AST/SGOT (test code = AST/SGOT) 43 U/L 15-40 H ALT/SGPT (test code = ALT/SGPT) 110 U/L 0-41 H alkaline phosphatase, total (test 67 U/L 40-130 code = alkaline phosphatase, total) [facility] or Plasma 2022-06-09 06:27:00 Test Item Value Reference Range Interpretation Comments glucose (test code = glucose) 110 mg/dL 74-106 H blood urea nitrogen (test code = 9 mg/dL 6-20 blood urea nitrogen) osmolality calculated,serum (test 273 mOsm/kg 280-300 L code = osmolality calculated,serum) creatinine (test code = 0.61 mg/dL 0.70-1.20 L creatinine) glomerular filtration rate (test > 60.00 code = glomerular filtration rate) BUN/creatinine ratio (test code = 14.8 12.0-20.0 BUN/creatinine ratio) sodium level (test code = sodium 137 mmol/L 135-145 level) potassium level (test code = 3.5 mmol/L 3.5-5.2 potassium level) chloride level (test code = 104 mmol/L 98-108 chloride level) CO2 (test code = CO2) 24 mmol/L 21-32 anion gap (test code = anion gap) 12.5 mEq/L 12.0-20.0 calcium level (test code = 8.1 mg/dL 8.6-10.0 L calcium level) total protein (test code = total 6.3 g/dL 6.6-8.7 L protein) albumin (test code = albumin) 3.5 g/dL 3.5-5.2 globulin (test code = globulin) 2.8 g/dL 1.5-4.5 A/G ratio (test code = A/G ratio) 1.3 >1.0 bilirubin,total (test code = 1.7 mg/dL 0.0-1.2 H bilirubin,total) AST/SGOT (test code = AST/SGOT) 43 U/L 15-40 H ALT/SGPT (test code = ALT/SGPT) 110 U/L 0-41 H alkaline phosphatase, total (test 67 U/L 40-130 code = alkaline phosphatase, total) [facility] [id number] 06:26:00 Test Item Value Reference Range Interpretation Comments lactic acid (test code = lactic 1.00 mmol/L 0.5-2.2 acid) [facility] [id number] 06:26:00 Test Item Value Reference Range Interpretation Comments lactic acid (test code = lactic 1.00 mmol/L 0.5-2.2 acid) [facility] W Auto Differential panel - [id number] 06:16:00 Test Item Value Reference Range Interpretation Comments white blood count (test code = 19.9 K/uL 4.0-12.3 H white blood count) red blood count (test code = red 5.00 M/uL 3.80-5.80 blood count) hemoglobin (test code = 15.6 g/dL 11.7-17.2 hemoglobin) hematocrit (test code = 47.2 % 35.0-51.0 hematocrit) mean corpuscular volume (test code 94.4 fL 83.0-100.0 = mean corpuscular volume) mean corpuscular hemoglobin (test 31.2 pg 26.8-33.4 code = mean corpuscular hemoglobin) mean corpuscular HGB conc (test 33.1 g/dL 30.0-35.0 code = mean corpuscular HGB conc) red cell distribution width (test 13.6 % 12.0-14.0 code = red cell distribution width) platelet count (test code = 231 K/uL 175-450 platelet count) mean platelet volume (test code = 10.9 fL 9.4-12.6 mean platelet volume) neutrophils % (test code = 81.9 % 44.7-82.4 neutrophils %) Ig% (test code = Ig%) 1.0 % 0.0-0.4 H lymphocyte% (test code = 8.6 % 10.0-50.0 L lymphocyte%) mono % (test code = mono %) 7.3 % 3.9-13.4 eos % (test code = eos %) 0.9 % 0.0-6.4 basophil % (test code = basophil 0.3 % 0.2-1.2 %) absolute neutrophil count (test 16.70 K/uL 1.78-5.38 H code = absolute neutrophil count) Ig# (test code = Ig#) 0.20 K/uL 0.00-0.03 H lymph # (test code = lymph #) 1.76 K/uL 1.32-3.57 mono # (test code = mono #) 1.48 K/uL 0.30-0.82 H eos # (test code = eos #) 0.19 K/uL 0.04-0.54 basophil # (test code = basophil 0.06 K/uL 0.01-0.08 #) NRBC% (test code = NRBC%) 0 /100 WBC 0-0.2 NRBC# (test code = NRBC#) 0 K/uL [facility] W Auto Differential panel - [id number] 06:16:00 Test Item Value Reference Range Interpretation Comments white blood count (test code = 19.9 K/uL 4.0-12.3 H white blood count) red blood count (test code = red 5.00 M/uL 3.80-5.80 blood count) hemoglobin (test code = 15.6 g/dL 11.7-17.2 hemoglobin) hematocrit (test code = 47.2 % 35.0-51.0 hematocrit) mean corpuscular volume (test code 94.4 fL 83.0-100.0 = mean corpuscular volume) mean corpuscular hemoglobin (test 31.2 pg 26.8-33.4 code = mean corpuscular hemoglobin) mean corpuscular HGB conc (test 33.1 g/dL 30.0-35.0 code = mean corpuscular HGB conc) red cell distribution width (test 13.6 % 12.0-14.0 code = red cell distribution width) platelet count (test code = 231 K/uL 175-450 platelet count) mean platelet volume (test code = 10.9 fL 9.4-12.6 mean platelet volume) neutrophils % (test code = 81.9 % 44.7-82.4 neutrophils %) Ig% (test code = Ig%) 1.0 % 0.0-0.4 H lymphocyte% (test code = 8.6 % 10.0-50.0 L lymphocyte%) mono % (test code = mono %) 7.3 % 3.9-13.4 eos % (test code = eos %) 0.9 % 0.0-6.4 basophil % (test code = basophil 0.3 % 0.2-1.2 %) absolute neutrophil count (test 16.70 K/uL 1.78-5.38 H code = absolute neutrophil count) Ig# (test code = Ig#) 0.20 K/uL 0.00-0.03 H lymph # (test code = lymph #) 1.76 K/uL 1.32-3.57 mono # (test code = mono #) 1.48 K/uL 0.30-0.82 H eos # (test code = eos #) 0.19 K/uL 0.04-0.54 basophil # (test code = basophil 0.06 K/uL 0.01-0.08 #) NRBC% (test code = NRBC%) 0 /100 WBC 0-0.2 NRBC# (test code = NRBC#) 0 [facility]uL [facility] [id number] 05:06:00 Test Item Value Reference Range Interpretation Comments cholesterol level (test code = 239 mg/dL 150-200 H cholesterol level) triglycerides level (test code = 247 mg/dL <150 H triglycerides level) HDL cholesterol (test code = HDL 35 mg/dL >55 L cholesterol) Cholesterol in LDL [Mass/volume] in 165 mg/dL <100 H Serum or Plasma (test code = 2089-1) cholesterol risk ratio (test code = 6.828 cholesterol risk ratio) [facility] [id number] 05:06:00 Test Item Value Reference Range Interpretation Comments cholesterol level (test code = 239 mg/dL 150-200 H cholesterol level) triglycerides level (test code = 247 mg/dL <150 H triglycerides level) HDL cholesterol (test code = HDL 35 mg/dL >55 L cholesterol) Cholesterol in LDL [Mass/volume] in 165 mg/dL <100 H Serum or Plasma (test code = 2089-1) cholesterol risk ratio (test code = 6.828 cholesterol risk ratio) [facility] 04:59:00 Test Item Value Reference Range Interpretation Comments lipase (test code = lipase) 1955 U/L 13-60 H [facility] 04:59:00 Test Item Value Reference Range Interpretation Comments lipase (test code = lipase) 1955 U/L 13-60 H [facility] 04:59:00 Test Item Value Reference Range Interpretation Comments lipase (test code = lipase) 1955 U/L 13-60 H [facility] 04:59:00 Test Item Value Reference Range Interpretation Comments lipase (test code = lipase) 1955 U/L 13-60 H [facility] W Auto Differential panel - [id number] 04:07:00 Test Item Value Reference Range Interpretation Comments white blood count (test code = 19.3 K/uL 4.0-12.3 H white blood count) red blood count (test code = red 5.11 M/uL 3.80-5.80 blood count) hemoglobin (test code = 16.0 g/dL 11.7-17.2 hemoglobin) hematocrit (test code = 47.7 % 35.0-51.0 hematocrit) mean corpuscular volume (test code 93.3 fL 83.0-100.0 = mean corpuscular volume) mean corpuscular hemoglobin (test 31.3 pg 26.8-33.4 code = mean corpuscular hemoglobin) mean corpuscular HGB conc (test 33.5 g/dL 30.0-35.0 code = mean corpuscular HGB conc) red cell distribution width (test 13.2 % 12.0-14.0 code = red cell distribution width) platelet count (test code = 276 K/uL 175-450 platelet count) mean platelet volume (test code = 10.9 fL 9.4-12.6 mean platelet volume) neutrophils % (test code = 89.3 % 44.7-82.4 H neutrophils %) Ig% (test code = Ig%) 0.9 % 0.0-0.4 H lymphocyte% (test code = 4.0 % 10.0-50.0 L lymphocyte%) mono % (test code = mono %) 5.3 % 3.9-13.4 eos % (test code = eos %) 0.1 % 0.0-6.4 basophil % (test code = basophil 0.4 % 0.2-1.2 %) absolute neutrophil count (test 17.19 K/uL 1.78-5.38 H code = absolute neutrophil count) Ig# (test code = Ig#) 0.17 K/uL 0.00-0.03 H lymph # (test code = lymph #) 0.78 K/uL 1.32-3.57 L mono # (test code = mono #) 1.03 K/uL 0.30-0.82 H eos # (test code = eos #) 0.02 K/uL 0.04-0.54 L basophil # (test code = basophil 0.08 K/uL 0.01-0.08 #) NRBC% (test code = NRBC%) 0 /100 WBC 0-0.2 NRBC# (test code = NRBC#) 0 K/uL [facility] W Auto Differential panel - [id number] 04:07:00 Test Item Value Reference Range Interpretation Comments white blood count (test code = 19.3 K/uL 4.0-12.3 H white blood count) red blood count (test code = red 5.11 M/uL 3.80-5.80 blood count) hemoglobin (test code = 16.0 g/dL 11.7-17.2 hemoglobin) hematocrit (test code = 47.7 % 35.0-51.0 hematocrit) mean corpuscular volume (test code 93.3 fL 83.0-100.0 = mean corpuscular volume) mean corpuscular hemoglobin (test 31.3 pg 26.8-33.4 code = mean corpuscular hemoglobin) mean corpuscular HGB conc (test 33.5 g/dL 30.0-35.0 code = mean corpuscular HGB conc) red cell distribution width (test 13.2 % 12.0-14.0 code = red cell distribution width) platelet count (test code = 276 K/uL 175-450 platelet count) mean platelet volume (test code = 10.9 fL 9.4-12.6 mean platelet volume) neutrophils % (test code = 89.3 % 44.7-82.4 H neutrophils %) Ig% (test code = Ig%) 0.9 % 0.0-0.4 H lymphocyte% (test code = 4.0 % 10.0-50.0 L lymphocyte%) mono % (test code = mono %) 5.3 % 3.9-13.4 eos % (test code = eos %) 0.1 % 0.0-6.4 basophil % (test code = basophil 0.4 % 0.2-1.2 %) absolute neutrophil count (test 17.19 K/uL 1.78-5.38 H code = absolute neutrophil count) Ig# (test code = Ig#) 0.17 K/uL 0.00-0.03 H lymph # (test code = lymph #) 0.78 K/uL 1.32-3.57 L mono # (test code = mono #) 1.03 K/uL 0.30-0.82 H eos # (test code = eos #) 0.02 K/uL 0.04-0.54 L basophil # (test code = basophil 0.08 K/uL 0.01-0.08 #) NRBC% (test code = NRBC%) 0 /100 WBC 0-0.2 NRBC# (test code = NRBC#) 0 K/uL [facility] [id number] 18:23:00 Test Item Value Reference Range Interpretation Comments alcohol level (test code = alcohol < 10.0 0.0-10.1 level) [facility] [id number] 18:23:00 Test Item Value Reference Range Interpretation Comments alcohol level (test code = alcohol < 10.0 0.0-10.1 level) [facility] [id number] 11:47:00 Test Item Value Reference Range Interpretation Comments POC glucose (test code = 103 mg/dL 65-99 H Ope rator Name: [id number]) [facility]: [id number] able: RN Notified Lab Interpretation (test Abnormal code = 98405-1) [facility]2022-08-23 11:47:00 Test Item Value Reference Range Interpretation Comments POC glucose (test code = 103 mg/dL 65-99 H Ope rator Name: [id number]) Esmail Quratula in [facility] ID: [id number] able: RN Notified Lab Interpretation (test Abnormal code = 61612-7) [facility]2022-08-23 11:47:00 Test Item Value Reference Range Interpretation Comments POC glucose (test code = 103 mg/dL 65-99 H Ope rator Name: [id number]) Esmail Quratula in [facility] ID: [id number] able: RN Notified Lab Interpretation (test Abnormal code = 36279-4) [facility]2022-08-23 11:47:00 Test Item Value Reference Range Interpretation Comments POC glucose (test code = 103 mg/dL 65-99 H Ope rator Name: [id number]) Esmail Quratula in [facility] ID: [id number] able: RN Notified Lab Interpretation (test Abnormal code = 54113-3) [facility]2022-08-23 11:47:00 Test Item Value Reference Range Interpretation Comments POC glucose (test code = 103 mg/dL 65-99 H Ope rator Name: [id number]) Esmail Quratula in [facility] ID: [id number] able: RN Notified Lab Interpretation (test Abnormal code = 62530-2) [facility]2022-08-23 11:47:00 Test Item Value Reference Range Interpretation Comments POC glucose (test code = 103 mg/dL 65-99 H Ope rator Name: [id number]) Esmail Quratula in [facility] ID: [id number] able: RN Notified Lab Interpretation (test Abnormal code = 86295-9) [facility]2022-08-23 11:47:00 Test Item Value Reference Range Interpretation Comments POC glucose (test code = 103 mg/dL 65-99 H Ope rator Name: [id number]) Esmail Quratula in [facility] ID: [id number] able: RN Notified Lab Interpretation (test Abnormal code = 90446-2) [facility]2022-08-23 11:47:00 Test Item Value Reference Range Interpretation Comments POC glucose (test code = 103 mg/dL 65-99 H Ope rator Name: [id number]) Esmail Quratula in [facility] ID: [id number] able: RN Notified Lab Interpretation (test Abnormal code = 50323-3) [facility]2022-08-23 11:47:00 Test Item Value Reference Range Interpretation Comments POC glucose (test code = 103 mg/dL 65-99 H Ope rator Name: [id number]) Esmail Quratula in [facility] ID: [id number] able: RN Notified Lab Interpretation (test Abnormal code = 76954-4) [facility]2022-08-23 11:47:00 Test Item Value Reference Range Interpretation Comments POC glucose (test code = 103 mg/dL 65-99 H Ope rator Name: [id number]) Esmail Quratula in [facility] ID: [id number] able: RN Notified Lab Interpretation (test Abnormal code = 11732-9) [facility]2022-08-23 11:47:00 Test Item Value Reference Range Interpretation Comments POC glucose (test code = 103 mg/dL 65-99 H Ope rator Name: [id number]) Esmail Quratula in [facility] ID: [id number] able: RN Notified Lab Interpretation (test Abnormal code = 85650-8) [facility]2022-08-23 11:47:00 Test Item Value Reference Range Interpretation Comments POC glucose (test code = 103 mg/dL 65-99 H Ope rator Name: [id number]) Esmail Quratula in [facility] ID: [id number] able: RN Notified Lab Interpretation (test Abnormal code = 52720-7) [facility]2022-08-23 11:47:00 Test Item Value Reference Range Interpretation Comments POC glucose (test code = 103 mg/dL 65-99 H Ope rator Name: 84195-5) Esmail Quratula in [facility] ID: [id number] able: RN Notified Lab Interpretation (test Abnormal code = 71949-6) [facility]2022-08-23 11:47:00 Test Item Value Reference Range Interpretation Comments POC glucose (test code = 103 mg/dL 65-99 H Ope rator Name: [id number]) Esmail Quratula in [facility] ID: [id number] able: RN Notified Lab Interpretation (test Abnormal code = 25235-6) [facility]2022-08-23 11:47:00 Test Item Value Reference Range Interpretation Comments POC glucose (test code = 103 mg/dL 65-99 H Ope rator Name: [id number]) Esmail Quratula in [facility] ID: [id number] able: RN Notified Lab Interpretation (test Abnormal code = 61259-4) [facility]2022-08-23 11:47:00 Test Item Value Reference Range Interpretation Comments POC glucose (test code = 103 mg/dL 65-99 H Ope rator Name: [id number]) Esmail Quratula in [facility] ID: [id number] able: RN Notified Lab Interpretation (test Abnormal code = 41772-1) [facility]2022-08-23 11:47:00 Test Item Value Reference Range Interpretation Comments POC glucose (test code = 103 mg/dL 65-99 H Ope rator Name: [id number]) Esmail Quratula in [facility] ID: [id number] able: RN Notified Lab Interpretation (test Abnormal code = 65571-0) [facility]2022-08-23 11:47:00 Test Item Value Reference Range Interpretation Comments POC glucose (test code = 103 mg/dL 65-99 H Ope rator Name: [id number]) Esmail Quratula in [facility] ID: [id number] able: RN Notified Lab Interpretation (test Abnormal code = 45728-1) [facility] Pre/Post [id number] 20:29:23 Test Item Value Reference Range Interpretation Comments Ventricular rate (test code = 253) Atrial rate (test code = 255) WY interval (test code = 266) QRSD interval [...] Emery MD ([id number]) on 03/01/2022 3:29:18 PM [facility] Pre/Post [id number] 20:29:23 Test Item Value Reference Range Interpretation Comments Ventricular rate (test code = 253) Atrial rate (test code = 255) WY interval (test code = 266) QRSD interval [...] Emery MD ([id number]) on 03/01/2022 3:29:18 PM [facility] Pre/Post [id number] 20:29:23 Test Item Value Reference Range Interpretation Comments Ventricular rate (test code = 253) Atrial rate (test code = 255) W[place] interval (test code = 266) QRSD interval [...] Emery MD (2064) on 03/01/2022 3:29:18 PM [facility] Pre/Post [id number] 20:29:23 Test Item Value Reference Range Interpretation Comments Ventricular rate (test code = 253) Atrial rate (test code = 255) W[place] interval (test code = 266) QRSD interval [...] Emery MD (2064) on 03/01/2022 3:29:18 PM [facility] Pre/Post [id number] 20:29:23 Test Item Value Reference Range Interpretation Comments Ventricular rate (test code = 253) Atrial rate (test code = 255) WY interval (test code = 266) QRSD interval [...] Emery MD (2064) on 03/01/2022 3:29:18 PM [facility] Pre/Post [id number] 20:29:23 Test Item Value Reference Range Interpretation Comments Ventricular rate (test code = 253) Atrial rate (test code = 255) W[place] interval (test code = 266) QRSD interval [...] Emery MD (2064) on 03/01/2022 3:29:18 PM [facility] Pre/Post [id number] 20:29:23 Test Item Value Reference Range Interpretation Comments Ventricular rate (test code = 253) Atrial rate (test code = 255) W[place] interval (test code = 266) QRSD interval [...] Emery MD (2064) on 03/01/2022 3:29:18 PM [facility] Pre/Post [id number] 20:29:23 Test Item Value Reference Range Interpretation Comments Ventricular rate (test code = 253) Atrial rate (test code = 255) WY interval (test code = 266) QRSD interval [...] Emery MD (2064) on 03/01/2022 3:29:18 PM [facility] Pre/Post [id number] 20:29:23 Test Item Value Reference Range Interpretation Comments Ventricular rate (test code = 253) Atrial rate (test code = 255) W[place] interval (test code = 266) QRSD interval [...] Emery MD (2064) on 03/01/2022 3:29:18 PM [facility] Pre/Post [id number] 20:29:23 Test Item Value Reference Range Interpretation Comments Ventricular rate (test code = 253) Atrial rate (test code = 255) WY interval (test code = 266) QRSD interval [...] Emery MD (2064) on 03/01/2022 3:29:18 PM [facility] Pre/Post [id number] 20:29:23 Test Item Value Reference Range Interpretation Comments Ventricular rate (test code = 253) Atrial rate (test code = 255) W[place] interval (test code = 266) QRSD interval [...] Emery MD (2064) on 03/01/2022 3:29:18 PM [facility] Pre/Post [id number] 20:29:23 Test Item Value Reference Range Interpretation Comments Ventricular rate (test code = 253) Atrial rate (test code = 255) WY interval (test code = 266) QRSD interval [...] Emery MD (2064) on 03/01/2022 3:29:18 PM [facility] Pre/Post [id number] 20:29:23 Test Item Value Reference Range Interpretation Comments Ventricular rate (test code = 253) Atrial rate (test code = 255) W[place] interval (test code = 266) QRSD interval [...] Emery MD (2064) on 03/01/2022 3:29:18 PM [facility] Pre/Post [id number] 20:29:23 Test Item Value Reference Range Interpretation Comments Ventricular rate (test code = 253) Atrial rate (test code = 255) WY interval (test code = 266) QRSD interval [...] Emery MD (2064) on 03/01/2022 3:29:18 PM [facility] Pre/Post [id number] 20:29:23 Test Item Value Reference Range Interpretation Comments Ventricular rate (test code = 253) Atrial rate (test code = 255) WY interval (test code = 266) QRSD interval [...] Emery MD (2064) on 03/01/2022 3:29:18 PM [facility] Pre/Post [id number] 20:29:23 Test Item Value Reference Range Interpretation Comments Ventricular rate (test code = 253) Atrial rate (test code = 255) WY interval (test code = 266) QRSD interval [...] Emery MD (2064) on 03/01/2022 3:29:18 PM [facility] Pre/Post [id number] 20:29:23 Test Item Value Reference Range Interpretation Comments Ventricular rate (test code = 253) Atrial rate (test code = 255) W[place] interval (test code = 266) QRSD interval [...] Emery MD (2064) on 03/01/2022 3:29:18 PM [facility] Pre/Post [id number] 20:29:23 Test Item Value Reference Range Interpretation Comments Ventricular rate (test 84 code = 253) Atrial rate (test code = 84 255) WY interval (test code = 172 266) QRSD interval (test code 98 = 260) QT interval (test code = 350 264) QTC interval (test code 413 = 265) P axis 1 (test code = 15 267) QRS axis 1 (test code = 50 268) T wave axis (test code = 28 270) EKG impression (test Normal sinus code = 273) rhythm-Normal ECG-No previous ECGs available-Electronica lly Signed By Ashok Emery MD (2064) on 03/01/2022 3:29:18 PM [facility]-CoV-2 (COVID-19) RNA [Presence] in Respiratory specimen by TENZIN with probe [id number] 18:27:20 Test Item Value Reference Range Interpretation Comments SARS-CoV-2 (COVID-19) RNA Not detected [Presence] in Respiratory specimen by TENZIN with probe detection (test code = 04413-5) Whether patient is employed in a Unknown healthcare setting (test code = 49635-9) Whether the patient has symptoms Unknown related to condition of interest (test code = 77253-8) Whether the patient was Unknown hospitalized for condition of interest (test code = 47996-7) Whether the patient was admitted Unknown to intensive care unit (ICU) for condition of interest (test code = 54370-7) Whether patient resides in a Unknown congregate care setting (test code = 27117-1) status (test code = Unknown 24875-2) Date and time of symptom onset Unknown (test code = 04144-0) [facility]-CoV-[facility] (COVID-19) RNA [Presence] in Respiratory specimen by TENZIN with probe [id number] 01:00:31 Test Item Value Reference Range Interpretation Comments SARS-CoV-2 (COVID-19) RNA Not detected [Presence] in Respiratory specimen by TENZIN with probe detection (test code = 23419-2) Whether patient is employed in a Unknown healthcare setting (test code = 79160-9) Whether the patient has symptoms Unknown related to condition of interest (test code = 48688-1) Whether the patient was Unknown hospitalized for condition of interest (test code = 37023-2) Whether the patient was admitted Unknown to intensive care unit (ICU) for condition of interest (test code = 90751-8) Whether patient resides in a Unknown congregate care setting (test code = 92739-2) status (test code = Unknown 64002-4) Date and time of symptom onset Unknown (test code = 37885-2) [facility] SARS CoV + SARS CoV 2 Ag panel, [place], upper respiratory [id number] 10:40:00 Test Item Value Reference Range Interpretation Comments RAPID SARS COV (test code = RAPID negative SARS COV) RAPID FLU A (test code = RAPID FLU negative A) RAPID FLU B (test code = RAPID FLU negative B) [facility] - Serum or [id number] 06:34:00 Test Item Value Reference Range Interpretation Comments cholesterol level (test code = 169 mg/dL 150-200 cholesterol level) triglycerides level (test code = 93 mg/dL <150 triglycerides level) HDL cholesterol (test code = HDL 52 mg/dL >55 L cholesterol) LDL cholesterol direct (test code = 108 mg/dL <100 H LDL cholesterol direct) cholesterol risk ratio (test code = 3.250 cholesterol risk ratio) [facility] [Mass/volume] in [id number] 00:00:00 Test Item Value Reference Range Interpretation Comments Hemoglobin A1c [Mass/volume] in Blood 5.3 % 4.0-6.0 (test code = 61730-0) [facility]Units/volume] in Serum or [id number] 00:00:00 Test Item Value Reference Range Interpretation Comments Thyrotropin [Units/volume] in 0.44 uIU/mL 0.36-3.74 Serum or Plasma (test code = 3016-3) [facility]
[2022-09-25] MEDS ORDERED: Phenylephrine HCl 10 MG/ML 1 ML VIAL ONE (20:25)
[2022-09-25] MEDS ORDERED: NA CHLORIDE 0.9% 250 ML ONE (20:25)
[2022-09-25] MEDS ORDERED: LIDOCAINE 1% MPF 5 ML VIAL ONE (20:28)
[2022-09-25] MEDS ORDERED: LIDOCAINE 1% MPF 30 ML VIAL ONE (20:46)
--- NOTE | 2022-09-25 21:19 | EDPHYS ---
Physician Documentation [facility] Name: Francesco Avelar Age: 27 yrs Sex: Male : 1995 Arrival Date: 09/25/2022 Time: 19:48 Bed 16 Private MD: ED Physician Baljeet Garsia HPI: 09/25 20:11 This 27 yrs old Male presents to ER via Ambulatory with complaints of Pain. cp Historical: - Allergies: 20:09 Imitrex; ha1 - Home Meds: 20:09 terbutaline 2.5 mg Oral tab [Active]; ha1 - PMHx: 20:09 adhd; Asthma; Bipolar disorder; priapism; ha1 - PSHx: 20:09 L5 S1 laminectomy; ha1 - Immunization history:: Adult Immunizations up to date. - Social history:: Smoking status: Patient reports the use of cigarette tobacco products, smokes one pack cigarettes per day. ROS: 20:15 Constitutional: Negative for body aches, chills, fever, poor PO intake. cp 20:15 : Positive for difficulty urinating, sustained erection, Negative for hematuria, cp penile discharge. Exam: 20:18 Constitutional: The patient appears in no acute distress, alert, awake, non-toxic, well cp developed, well nourished, uncomfortable. 20:18 Head/Face: Normocephalic, atraumatic. cp 20:18 Abdomen/GI: Inspection: bruising, is not seen, Bowel sounds: active, all quadrants, Palpation: abdomen is soft and non-tender, in all quadrants. 20:18 : Male external genitalia: Patient is not circumisioned. penis erected, non-tender. Vital Signs: 20:05 BP 141 / 60; Pulse 119; Resp 20 S; Temp 98.2; Pulse Ox 100% ; Weight 103.87 kg; Height ha1 5 ft. 11 in. ; Pain 6/10; 20:05 Body Mass Index 31.94 (103.87 kg, 180.34 cm) ha1 20:05 Pain Scale: Adult ha1 MDM: 20:20 Patient medically screened. cp Administered Medications: 20:20 CANCELLED (Physician Discretion): Phenylephrine IV 0.04 mg/min IV at per protocol Per cp protocol; place at bedside Disposition: 20:52 Co-signature as Attending Physician, Baljeet Garsia DO PA/[employer]'s history reviewed, patient ms3 interviewed, and examined. HPI: 27-year-old male with past medical history of ADHD, asthma, bipolar, priapism presents for priapism that began at 7 AM. Patient states he took 4 tablets of 2.5 mg terbutaline prior to arrival. Patient denies pain at this time My personal exam of patient reveals: On exam patient is alert and oriented x4, no apparent distress, nontoxic-appearing. Heart rate and rhythm are regular without murmurs rubs or gallops. Lungs are clear to auscultation bilaterally. Genitourinary exam reveals priapism. Disposition Summary: 09/25/22 21:19 Discharge Ordered Location: Home cp Problem: an ongoing problem cp Symptoms: are resolved cp Condition: Stable cp Diagnosis - Priapism, unspecified cp Followup: cp - With: Minesh Vivas MD - When: next week as scheduled - Reason: Recheck today's complaints Discharge Instructions: - Discharge Summary Sheet cp - Priapism cp Forms: - Medication Reconciliation Form cp - Thank You Letter cp - Antibiotic Education cp - Prescription Opioid Use cp Signatures: Steve Liriano PA PA cp Baljeet Garsia DO DO ms3 Betty Gunderson RN RN ha1 Corrections: (The following items were deleted from the chart) 20:20 20:11 Phenylephrine IV 0.04 mg/min IV at per protocol Per protocol; place at bedside cp ordered. cp
--- NOTE | 2022-09-25 21:19 | ER ---
Nurse's Notes [facility] Name: Francesco Avelar Age: 27 yrs Sex: Male : 1995 Arrival Date: 09/25/2022 Time: 19:48 Bed 16 Private MD: Diagnosis: Priapism, unspecified Presentation: 09/25 20:05 Chief complaint: Patient states: I have penis erection that does not go away and to day ha1 I have been having it since 0630 am this morning. Coronavirus screen: Vaccine status: Patient reports receiving the 2nd dose of the covid vaccine. [employer]erahel[employer]. Ebola Screen: No symptoms or risks identified at this time. Initial Sepsis Screen: Does the patient meet any 2 criteria? No. Patient's initial sepsis screen is negative. Does the patient have a suspected source of infection? No. Patient's initial sepsis screen is negative. Risk Assessment: Do you want to hurt yourself or someone else? Patient reports no desire to harm self or others. Onset of symptoms was September 25, 2022. 20:05 Method Of Arrival: Ambulatory ha1 20:05 Acuity: MCKENZIE 3 ha1 Triage Assessment: 20:09 General: Appears comfortable, Behavior is calm, cooperative. Pain: Complains of pain in ha1 penis. Pain: Pain does not radiate. Pain currently is 6 out of 10 on a pain scale. EENT: No signs and/or symptoms were reported regarding the EENT system. Neuro: Level of Consciousness is awake, alert, obeys commands, Oriented to person, place, time, situation. Cardiovascular: Patient's skin is warm and dry. Respiratory: Airway is patent Respiratory effort is even, unlabored, Respiratory pattern is regular, symmetrical. Musculoskeletal: Circulation, motion, and sensation intact. Range of motion:. Historical: - Allergies: 20:09 Imitrex; ha1 - Home Meds: 20:09 terbutaline 2.5 mg Oral tab [Active]; ha1 - PMHx: 20:09 adhd; Asthma; Bipolar disorder; priapism; ha1 - PSHx: 20:09 L5 S1 laminectomy; ha1 - Immunization history:: Adult Immunizations up to date. - Social history:: Smoking status: Patient reports the use of cigarette tobacco products, smokes one pack cigarettes per day. Vital Signs: 20:05 BP 141 / 60; Pulse 119; Resp 20 S; Temp 98.2; Pulse Ox 100% ; Weight 103.87 kg; Height ha1 5 ft. 11 in. ; Pain 6/10; 20:05 Body Mass Index 31.94 (103.87 kg, 180.34 cm) ha1 20:05 Pain Scale: Adult [facility] ED Course: 19:48 Patient arrived in ED. am2 20:05 Steve Liriano PA is PHCP. cp 20:05 Baljeet Garsia DO is Attending Physician. cp 20:09 Triage completed. ha1 20:09 Arm band placed on left wrist. ha1 20:21 Magaly Samuel, SHELLEY is Primary Nurse. 3 21:18 Minesh Vivas MD is Referral Physician. cp Administered Medications: 20:20 CANCELLED (Physician Discretion): Phenylephrine IV 0.04 mg/min IV at per protocol Per cp protocol; place at bedside Outcome: 21:19 Discharge ordered by MD. cp Signatures: Steve Liriano PA PA cp Moreno, Amanda am2 Magaly Samuel RN RN [facility] Betty Gunderson RN RN [facility]
[2022-09-25 22:06] VITALS: BP 141/60; TEMP 98.2; O2SAT 100
== END 2022-09-25 21:27 | disposition home or self-care (01) ==
LOC: ER 19:34
DX: N48.30 Priapism, unspecified (principal); F17.210 Nicotine dependence, cigarettes, uncomplicated; Z88.8 Allergy status to other drugs, medicaments and biological substances
CPT/HCPCS: 99281; J2370; J2001; J7050

== ENCOUNTER 2022-09-28 14:55 | Emergency (ER) | payer BC, OTHER ==
--- OUTSIDE RECORDS SUMMARY | 2022-09-28 15:04 | XMS REPORT | Continuity of Care Document ---
:1995 Author Organization [facility] t Address [address] [place] [address] Support Name Relationship Address Phone BALA CLARK Unavailable [address] [phone] [place] [address] GREGORY BATISTA Unavailable [address] [phone] [place] [address] Marianna Batista Parent [address] [place] [address] PRISCILA MAGANA MD Emergency Provider [address] [place] [address] PHYSICIAN, NO Primary Care Physician Unavailable Unavailab MD PRISCILA Castillo Emergency Provider [address] [place] [address] MD [facility] Primary Care Physician [address] [place] [place] [address] MD CELSA MUNGUIA Emergency Provider [address] [address] MD BARBARA VELAZQUEZ Emergency Provider [address] [place] [address] MD ARLET LUNSFORD Emergency Provider [address] [place] [address] DO ABRAHAM MCCRACKEN Admitting Provider [address] [place] [address] MD SHEILA RICO Emergency Provider [address] [phone] [place] [address] MD ALEXA TORRES Emergency Provider [address] [place] [address] MD KALPESH DUNAWAY Emergency Provider [address] [phone] [place] [address] Care Team Providers Name Role Phone Ronnell Diaz MD Primary Care Physician Ronnell Diaz Attending Clinician Unavailable NAHUN KHANNA Attending Clinician Unavailable MAYNOR ROMERO Attending Clinician Unavailable Tatiana Xavier MA Attending Clinician Unavailable Maynor oRmero MD Attending Clinician Rich Salgado Attending Clinician Neymar Barron Attending Clinician Unavailable Ronnell Diaz Attending Clinician Unavailable Zungracya_F Attending Clinician Unavailable Kalpesh Dunaway Attending Clinician Unavailable Melecio Cox Attending Clinician Unavailable Arlet Lunsford Attending Clinician Unavailable Alexa Torres Attending Clinician Unavailable Chance Davis Attending Clinician Unavailable Gloria Attending Clinician Unavailable Mallory Jiang RN Attending Clinician Unavailable Alfreda Duvall MD Attending Clinician Anna Leahy Attending Clinician Graeme SOUZA, Micaela Santa Attending Clinician Parish Chamorro MD Attending Clinician Basilio Diallo MD Attending Clinician JONA Attending Clinician Unavailable Sheila Rico Attending Clinician Unavailable Berenice Attending Clinician Unavailable KIA SIMPSON Attending Clinician Unavailable Abraham Mccracken Attending Clinician Unavailable BARBARA VELAZQUEZ Attending Clinician Unavailable CELSA MUNGUIA Attending Clinician Unavailable Zuniga_S Attending Clinician Unavailable PRISCILA MAGANA Attending Clinician Unavailable Jb Attending Clinician Unavailable KENNETH ASCENCIO Attending Clinician Unavailable SUNNY CURRY Attending Clinician Unavailable CEDRIC TURNER Attending Clinician Unavailable NUNO REED Attending Clinician Unavailable PARKER KENT Attending Clinician Unavailable SERGEY THAKKAR Attending Clinician Unavailable ZBIGNIEW DIAS Attending Clinician Unavailable Zuniga_F Admitting Clinician Unavailable Ronnell Diaz Admitting Clinician Unavailable Duarte_Sundar Admitting Clinician Unavailable MAYNOR ROMERO Admitting Clinician Unavailable BASILIO DIALLO Admitting Clinician Unavailable JONA Admitting Clinician Unavailable Calvin_Calvin Admitting Clinician Unavailable Abraham Mccracken Admitting Clinician Unavailable Zady_S Admitting Clinician Unavailable Denny_Chinyere Admitting Clinician Unavailable Payers Payer Name Policy Type Policy Number Effective Date Expiration Date S [place] [id number] 2014 (PPO) 00:00:00 [facility] [id number] 2019 [place] 00:00[place]00 ([place] [id number] [place]) [place] [facility] - [id number] [facility] Problems Condition Condition Condition Status Onset Resolution [...] Added automatic ally from request for surgery [id number] Priapism Priapism Disease Active Metho di 8-17 [...] Unknown Commo n porras porras Spirit - [facility] Imitrex Allergy Active [facility] Family History Family Member Diagnosis Comments Start Date Stop Date Source Natural father Doan's palsy [facility] Natural mother Fibromyalgia [facility] Social History Social Habit Start Date Stop Date Quantity Comments Source History of Current Smoker Common Spi rit - Tobacco Use [facility] Alcohol intake 2022-03-03 2022-03-03 Current drinker Metho dist 00:00:00 00:00:00 of alcohol Hospital (finding) Tobacco use and 2022-03-01 2022-03-01 Smokeless tobacco Me thodist exposure 00:00:00 00:00:00 non-user Hospital Alcohol Comment 2022-03-01 2022-03-01 EVERY OTHER Methodis t 00:00:00 00:00:00 [facility] Sex Assigned At [birth year] [facility] 00:[facility]00 Hospital Smoking Status Start Date Stop Date Source Light Tobacco Smoker Myla [facility] Current Smoker 2022-05-19 00:00:00 Common Spiri t - [facility] Medications Ordered Filled Start Stop [...] l mg tablet ns methylPREDN 0 2021- No Use as Met hodi ISolone 03-[address] (MEDROL 00:00: 04:59 by package Hos félix DOSEPAK) 4 00 :00 instructio l mg tablet ns methylPREDN 0 2021- No Use as Met hodi ISolone [...] st MG tablet 11:57: mg total) Hos éflix 10 by mouth 2 l (two) times [...] day. l on inhaler acetaminoph 2021- No 1{tbl} Q6H Take 1 [...] up to 5 days .acute pain. traMADoL 38646 50mg Q6H Take 1 Metho di (ULTRAM) 50 8-19 08-25 tablet (50 s t mg tablet 00:00: 04:59 mg total) Ho spita 00 :00 by mouth l every 6 (six) hours as needed for moderate pain for up to 5 days .acute pain. traMADoL 57750 50mg Q6H Take 1 Metho di (ULTRAM) [...] up to 5 days .acute pain. traMADoL 23236 50mg Q6H Take 1 Metho di (ULTRAM) 50 8-19 08-25 tablet (50 s t mg tablet 00:00: 04:59 mg total) Ho spita 00 :00 by mouth l every 6 (six) hours as needed for moderate pain for up to 5 days .acute pain. traMAD[place] 2021- [place] [id number] 50mg Q6H Take 1 Metho di (ULTRAM) 50 8-19 08-25 tablet (50 s t mg tablet 00:00: 04:59 mg total) Ho spita 00 :00 by mouth l every 6 (six) hours as needed for moderate pain for up to 5 days .acute pain. traMAD[place] 2021- [place] [id number] 50mg Q6H Take 1 Metho di (ULTRAM) 50 8-19 08-25 tablet (50 s t mg tablet 00:00: 04:59 mg total) Ho spita 00 :00 by mouth l every 6 (six) hours as needed for moderate pain for up to 5 days .acute pain. traMADoL 2021- [place] [id number] 50mg Q6H Take 1 Metho di (ULTRAM) 50 8-19 08-25 tablet (50 s t mg tablet 00:00: 04:59 mg total) Ho spita 00 :00 by mouth l every 6 (six) hours as needed for moderate pain for up to 5 days .acute pain. traMAD[place] 2021- [place] [id number] 50mg Q6H Take 1 Metho di (ULTRAM) [...] for up to 7 days. ibuprofen 2021-0 2021- No 600mg Q6H Take [...] (Back pain) for up to 7 days. lify 2021- No INJECT ONE Met hodi Maintena 5-18 08-17 (1) UNIT [facility] 400 mg 00:00: 00:00 INTO THE Hospit a suspension, 00 :00 MUSCLE l extended ONCE A rel syring MONTH lif2021- No INJECT ONE Met hodi Maintena 5-18 08-17 (1) UNIT st 400 mg 00:00: 00:00 INTO THE Hospit a suspension, 00 :00 MUSCLE l extended ONCE A rel syring MONTH fy 2021- No INJECT ONE Met hodi Maintena [...] yed release yed release ayed G roup Take 1 Take 1 release tablet [...] Date Status Commen ts Source Name Name [facility] COVID-19 MRNA 2020-10-16 Completed Meth odist VACCINATION 00:00:00 [facility] PFIZER COVID-19 MRNA 2020-10-16 Completed Meth odist VACCINATION 00:00:00 [facility] COVID-19 MRNA 2020-10-16 Completed Meth odist VACCINATION 00:00:00 [facility] COVID-19 MRNA 2020-10-16 Completed Meth odist VACCINATION 00:00:00 [facility] PFIZ[facility] COVID-19 MRNA 2020-10-16 Completed Meth odist VACCINATION 00:00:00 [facility] PFIZER COVID-19 MRNA 2020-10-16 Completed Meth odist VACCINATION 00:00:00 [facility] PFIZER COVID-19 MRNA 2020-10-16 Completed Meth odist VACCINATION 00:00:00 [facility] COVID-19 MRNA 2020-10-16 Completed Meth odist VACCINATION 00:00:00 [facility] PFIZER COVID-19 MRNA 2020-10-16 Completed Meth odist VACCINATION 00:00:00 [facility] PFIZER COVID-19 MRNA 2020-10-16 Completed Meth odist VACCINATION 00:00:00 [facility] PFIZER COVID-19 MRNA 2020-10-16 Completed Meth odist VACCINATION 00:00:00 [facility] PFIZER COVID-19 MRNA 2020-10-16 Completed Meth odist VACCINATION 00:00:00 [facility] PFIZER COVID-19 MRNA 2020-10-16 Completed Meth odist VACCINATION 00:00:00 [facility] COVID-19 MRNA 2020-10-16 Completed Meth odist VACCINATION 00:00:00 [facility] COVID-19 MRNA 2020-10-16 Completed Meth odist VACCINATION 00:00:00 Hospital PFIZER COVID-19 MRNA 2020-10-16 Completed Meth odist VACCINATION 00:00:00 [facility] PFIZER COVID-19 MRNA 2020-10-16 Completed Meth odist VACCINATION 00:00:00 Hospital PFIZER COVID-19 MRNA 2020-10-16 Completed Meth odist VACCINATION 00:00:00 [facility] PFIZER COVID-19 MRNA 2020-10-16 Completed Meth odist VACCINATION 00:00:00 [facility] PFIZER COVID-19 MRNA 2020-09-25 Completed Meth odist VACCINATION 00:00:00 [facility] PFIZER COVID-19 MRNA 2020-09-25 Completed Meth odist VACCINATION 00:00:00 [facility] PFIZ[facility] COVID-19 MRNA 2020-09-25 Completed Meth odist VACCINATION 00:00:00 [facility] PFIZ[facility] COVID-19 MRNA 2020-09-25 Completed Meth odist VACCINATION 00:00:00 [facility] PFIZER COVID-19 MRNA 2020-09-25 Completed Meth odist VACCINATION 00:00:00 [facility] PFIZER COVID-19 MRNA 2020-09-25 Completed Meth odist VACCINATION 00:00:00 [facility] PFIZER COVID-19 MRNA 2020-09-25 Completed Meth odist VACCINATION 00:00:00 [facility] PFIZER COVID-19 MRNA 2020-09-25 Completed Meth odist VACCINATION 00:00:00 [facility] PFI[facility] COVID-19 MRNA 2020-09-25 Completed Meth odist VACCINATION 00:00:00 [facility] PFIZER COVID-19 MRNA 2020-09-25 Completed Meth odist VACCINATION 00:00:00 [facility] PFIZ[facility] COVID-19 MRNA 2020-09-25 Completed Meth odist VACCINATION 00:00:00 [facility] PFIZ[facility] COVID-19 MRNA 2020-09-25 Completed Meth odist VACCINATION 00:00:00 [facility] PFIZER COVID-19 MRNA 2020-09-25 Completed Meth odist VACCINATION 00:00:00 [facility] PFIZER COVID-19 MRNA 2020-09-25 Completed Meth odist VACCINATION 00:00:00 [facility] PFIZER COVID-19 MRNA 2020-09-25 Completed Meth odist VACCINATION 00:00:00 [facility] PFIZER COVID-19 MRNA 2020-09-25 Completed Meth odist VACCINATION 00:00:00 [facility] PFIZ[facility] COVID-19 MRNA 2020-09-25 Completed Meth odist VACCINATION 00:00:00 [facility] PFIZER COVID-19 MRNA 2020-09-25 Completed Meth odist VACCINATION 00:00:00 [facility] PFI[facility] COVID-19 MRNA 2020-09-25 Completed Meth odist VACCINATION 00:00:00 [facility] Vital Signs Vital Name Observation Time Observation Value Comments Source BP Diastolic 2022-06-25 00:00:00 84 mm[Hg] [facility] Height 2022-06-25 00:00:00 71 [in_i] [facility] BMI (Body Mass 2022-06-25 00:00:00 33.5 kg/m2 [facility] BP Systolic 2022-06-25 00:00:00 133 mm[Hg] [facility] Body Weight 2022-06-25 00:00:00 3848 [oz_av] [facility] BP Diastolic 2022-06-21 00:00:00 73 mm[Hg] [facility] Height 2022-06-21 00:00:00 71 [in_i] [facility] BMI (Body Mass 2022-06-21 00:00:00 34.4 kg/m2 [facility]) Group BP Systolic 2022-06-21 00:00:00 112 mm[Hg] [facility] Body Weight 2022-06-21 00:00:00 3942 [oz_av] [facility] height 2022-05-19 10:30:00 71 [in_i] [facility] weight 2022-05-19 10:30:00 254.6 [lb_av] [facility] temperature 2022-05-19 10:30:00 97.6 [degF] [facility] bmi 2022-05-19 10:30:00 35.51 kg/m2 [facility] oximetry 2022-05-19 10:30:00 98 % [facility] respiratory rate 2022-05-19 10:30:00 18 /min [facility] blood pressure 2022-05-19 10:30:00 35 mm[Hg] Common [facility] blood pressure 2022-05-19 10:30:00 78 mm[Hg] [facility] - diastolic [facility] BP Diastolic 2022-03-09 00:00:00 77 mm[Hg] [facility] Height 2022-03-09 00:00:00 71 [in_i] [facility] BMI (Body Mass 2022-03-09 00:00:00 35.6 kg/m2 [facility] BP Systolic 2022-03-09 00:00:00 122 mm[Hg] [facility] Body Weight 2022-03-09 00:00:00 4078.4 [oz_av] [facility] BP Diastolic 2021-11-06 00:00:00 83 mm[Hg] [facility] Height 2021-11-06 00:00:00 71 [in_i] [facility] BMI (Body Mass 2021-11-06 00:00:00 35 kg/m2 [facility] BP Systolic 2021-11-06 00:00:00 127 mm[Hg] [facility] Body Weight 2021-11-06 00:00:00 4020 [oz_av] [facility] Height 2021-09-14 00:00:00 71 [in_i] [facility] BMI (Body Mass 2021-09-14 00:00:00 34.6 kg/m2 [facility] Body Weight 2021-09-14 00:00:00 3968 [oz_av] [facility] BP Diastolic 2021-03-26 00:00:00 75 mm[Hg] [facility] Height 2021-03-26 00:00:00 71 [in_i] [facility] BMI (Body Mass 2021-03-26 00:00:00 31.1 kg/m2 [facility] BP Systolic 2021-03-26 00:00:00 118 mm[Hg] [facility] Body Weight 2021-03-26 00:00:00 3569 [oz_av] [facility] BP Diastolic 2021-03-10 00:00:00 69 mm[Hg] [facility] Height 2021-03-10 00:00:00 71 [in_i] [facility] BMI (Body Mass 2021-03-10 00:00:00 30.8 kg/m2 [facility] BP Systolic 2021-03-10 00:00:00 111 mm[Hg] [facility] Body Weight 2021-03-10 00:00:00 3529 [oz_av] [facility] BP Diastolic 2021-01-02 00:00:00 63 mm[Hg] [facility] Height 2021-01-02 00:00:00 71 [in_i] [facility] BMI (Body Mass 2021-01-02 00:00:00 30.3 kg/m2 [facility] BP Systolic 2021-01-02 00:00:00 112 mm[Hg] [facility] Body Weight 2021-01-02 00:00:00 3481 [oz_av] [facility] BP Diastolic 2020-07-15 00:00:00 71 mm[Hg] [facility] Height 2020-07-15 00:00:00 71 [in_i] [facility] BMI (Body Mass 2020-07-15 00:00:00 29.7 kg/m2 [facility] BP Systolic 2020-07-15 00:00:00 117 mm[Hg] [facility] Body Weight 2020-07-15 00:00:00 213 [lb_av] [facility] BP Diastolic 2020-07-14 00:00:00 71 mm[Hg] [facility] Height 2020-07-14 00:00:00 71 [in_i] [facility] BMI (Body Mass 2020-07-14 00:00:00 29.7 kg/m2 [facility] BP Systolic 2020-07-14 00:00:00 117 mm[Hg] [facility] Body Weight 2020-07-14 00:00:00 3411 [oz_av] [facility] Height 2020-01-30 00:00:00 71 [in_i] [facility] BMI (Body Mass 2020-01-30 00:00:00 30 kg/m2 [facility] Body Weight 2020-01-30 00:00:00 3440 [oz_av] [facility] Systolic blood 2022-03-02 15:38:00 114 mm[Hg] [facility] pressure Diastolic blood 2022-03-02 15:38:00 67 mm[Hg] [facility] pressure Heart rate 2022-03-02 15:38:00 63 /min [facility] Respiratory rate 2022-03-02 15:38:00 16 /min [facility] Oxygen saturation in 2022-03-02 15:38:00 97 /min [facility] Arterial blood by Pulse oximetry Body temperature 2022-03-02 15:30:00 36.33 Elle [facility] Body height 2022-03-01 15:26:00 180.3 cm [facility] Body weight 2022-03-01 15:26:00 115.123 kg [facility] BMI 2022-03-01 15:26:00 35.40 kg/m2 [facility] Procedures Procedure Date / Time Performing Clinician Source Performed US, duplex, penis, 2022-03-09 00:00:00 [facility] [place] < 1 HOUR 2022-03-02 18:31:17 Maynor Romero [facility] 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 ENDOTRACHEAL AIRWAY LAMINECTOMY, LUMBAR 2022-03-02 12:29[facility]00 [facility] 2022-03-02 11:43:00 Maynor Romero ospital Back Surgery 2022-03-02 00:00:00 [facility] XR CHEST 2 VW 2022-03-01 17:28:02 Maynor Romero ospital ECG PRE/POST OP 2022-03-01 16:38:21 Maynor Romero ospital HEMOGLOBIN A1C 2022-03-01 16:18:00 [facility] COVID-19 QUALITATIVE 2022-03-01 15:48:00 [facility] CBC WITH PLATELET AND 2022-03-01 15:48:00 Maynor Romero [facility] DIFFERENTIAL PARTIAL THROMBOPLASTIN 2022-03-01 15:48:00 Maynor Romero [facility] TIME (PTT) PROTHROMBIN TIME WITH INR 2022-03-01 15:48[facility] LUMBAR 2022-02-25 18:14:57 [facility]B [facility] 2022-02-25 17:55[facility]I COVID-19 QUALITATIVE 2022-02-24 22:40:00 [facility] RT-PCR COMPREHENSIVE METABOLIC 2022-02-24 22:40:00 [facility] PANEL CBC WITH PLATELET AND 2022-02-24 22:40:00 [facility] DIFFERENTIAL TROPONIN T 2022-02-24 22:40:00 [facility] B NATRIURETIC PEPTIDE 2022-02-24 22:40:00 [facility] ESTIMATED GFR 2022-02-24 22:40:00 [facility] GENERAL 2022-02-24 22:27:14 [facility] CT SPINE EXTERNAL STUDY 2022-02-12 16:40:33 Maynor Romero Juan [facility] XR ABDOMEN 2 VW AP W 2021-12-18 16:48:33 Maynor Romero [facility] UPRIGHT AND/OR DECUBITUS XR LUMBAR SPINE COMPLETE 2021-12-18 15:33:23 Maynor Romero [facility] W BENDING XR SPINE EXTERNAL STUDY 2021-08-10 17:26:30 Maynor Romero [facility] XR, lumbar spine 2021-03-10 00:00:00 Myla Vallejo Plan of Care Planned Activity Planned Date Details Comments Source Future Scheduled Test 2022-09-07 Pneumococcal Vaccine: [facility] 19:21:49 Pediatrics (0 to 5 Years) and At-Risk Patients (6 to 64 Years) (1 - PCV) [code = Pneumococcal Vaccine: Pediatrics (0 to 5 Years) and At-Risk Patients (6 to 64 Years) (1 - PCV)] Future Scheduled Test 2022-09-07 Hepatitis C screening [facility] 19:21:49 (procedure) [code = 118598607] Future Scheduled Test 2022-09-07 COVID-19 VACCINE ([address] [place] [address] 19:21:49 Booster for Pfizer series) [code = COVID-19 VACCINE (3 - Booster for Pfizer series)] Future Scheduled Test 2022-09-07 INFLUENZA VACCINE [facility] 19:21:49 [code = INFLUENZA VACCINE] Future Scheduled Test 2022-09-07 Pneumococcal Vaccine: [facility] 19:21:49 Pediatrics (0 to 5 Years) and At-Risk Patients (6 to 64 Years) (1 - PCV) [code = Pneumococcal Vaccine: Pediatrics (0 to 5 Years) and At-Risk Patients (6 to 64 Years) (1 - PCV)] Future Scheduled Test 2022-09-07 Hepatitis C screening [facility] 19:21:49 (procedure) [code = 873135256] Future Scheduled Test 2022-09-07 COVID-19 VACCINE ([address] [place] [address] 19:21:49 Booster for Pfizer series) [code = COVID-19 VACCINE (3 - Booster for Pfizer series)] Future Scheduled Test 2022-09-07 INFLUENZA VACCINE [facility] 19:21:49 [code = INFLUENZA VACCINE] Future Scheduled Test 2022-06-26 Pneumococcal Vaccine: [facility] 18:09:46 Pediatrics (0 to 5 Years) and At-Risk Patients (6 to 64 Years) (1 - PCV) [code = Pneumococcal Vaccine: Pediatrics (0 to 5 Years) and At-Risk Patients (6 to 64 Years) (1 - PCV)] Future Scheduled Test 2022-06-26 Hepatitis C screening [facility] 18:09:46 (procedure) [code = [id number]] Future Scheduled Test 2022-06-26 COVID-19 VACCINE ([address] [place] [address] 18:09:46 Booster for Pfizer series) [code = COVID-19 VACCINE (3 - Booster for Pfizer series)] Future Scheduled Test 2022-06-26 INFLUENZA VACCINE [facility] 18:09:46 [code = INFLUENZA VACCINE] Future Scheduled Test 2022-06-26 Pneumococcal Vaccine: [facility] 18:09:46 Pediatrics (0 to 5 Years) and At-Risk Patients (6 to 64 Years) (1 - PCV) [code = Pneumococcal Vaccine: Pediatrics (0 to 5 Years) and At-Risk Patients (6 to 64 Years) (1 - PCV)] Future Scheduled Test 2022-06-26 Hepatitis C screening [facility] 18:09:46 (procedure) [code = [id number]] Future Scheduled Test 2022-06-26 COVID-19 VACCINE ([address] [place] [address] 18:09:46 Booster for Pfizer series) [code = COVID-19 VACCINE (3 - Booster for Pfizer series)] Future Scheduled Test 2022-06-26 INFLUENZA VACCINE [facility] 18:09:46 [code = INFLUENZA VACCINE] Diagnostic Test [...] plasma] Future Scheduled Test 2022-05-20 Pneumococcal Vaccine: [facility] 09:23:23 Pediatrics (0 to 5 Years) and At-Risk Patients (6 to 64 Years) (1 - PCV) [code = Pneumococcal Vaccine: Pediatrics (0 to 5 Years) and At-Risk Patients (6 to 64 Years) (1 - PCV)] Future Scheduled Test 2022-05-20 Hepatitis C screening [facility] 09:23:23 (procedure) [code = [id number]] Future Scheduled Test 2022-05-20 COVID-19 VACCINE ([address] [place] [address] 09:23:23 Booster for Pfizer series) [code = COVID-19 VACCINE (3 - Booster for Pfizer series)] Future Scheduled Test 2022-05-20 INFLUENZA VACCINE [facility] 09:23:23 [code = INFLUENZA VACCINE] Future Scheduled Test 2022-05-20 Pneumococcal Vaccine: [facility] 09:23:23 Pediatrics (0 to 5 Years) and At-Risk Patients (6 to 64 Years) (1 - PCV) [code = Pneumococcal Vaccine: Pediatrics (0 to 5 Years) and At-Risk Patients (6 to 64 Years) (1 - PCV)] Future Scheduled Test 2022-05-20 Hepatitis C screening [facility] 09:23:23 (procedure) [code = [id number]] Future Scheduled Test 2022-05-20 COVID-19 VACCINE ([address] [place] [address] 09:23:23 Booster for Pfizer series) [code = COVID-19 VACCINE (3 - Booster for Pfizer series)] Future Scheduled Test 2022-05-20 INFLUENZA VACCINE [facility] 09:23:23 [code = INFLUENZA VACCINE] Future Scheduled Test 2022-05-20 Pneumococcal Vaccine: [facility] 09:23:23 Pediatrics (0 to 5 Years) and At-Risk Patients (6 to 64 Years) (1 - PCV) [code = Pneumococcal Vaccine: Pediatrics (0 to 5 Years) and At-Risk Patients (6 to 64 Years) (1 - PCV)] Future Scheduled Test 2022-05-20 Hepatitis C screening [facility] 09:23:23 (procedure) [code = [id number]] Future Scheduled Test 2022-05-20 COVID-19 VACCINE ([address] [place] [address] 09:23:23 Booster for Pfizer series) [code = COVID-19 VACCINE (3 - Booster for Pfizer series)] Future Scheduled Test 2022-05-20 INFLUENZA VACCINE [facility] 09:23:23 [code = INFLUENZA VACCINE] Future Scheduled Test 2022-05-20 Pneumococcal Vaccine: [facility] 09:23:23 Pediatrics (0 to 5 Years) and At-Risk Patients (6 to 64 Years) (1 - PCV) [code = Pneumococcal Vaccine: Pediatrics (0 to 5 Years) and At-Risk Patients (6 to 64 Years) (1 - PCV)] Future Scheduled Test 2022-05-20 Hepatitis C screening [facility] 09:23:23 (procedure) [code = [id number]] Future Scheduled Test 2022-05-20 COVID-19 VACCINE ([address] [place] [address] 09:23:23 Booster for Pfizer series) [code = COVID-19 VACCINE (3 - Booster for Pfizer series)] Future Scheduled Test 2022-05-20 INFLUENZA VACCINE [facility] 09:23:23 [code = INFLUENZA VACCINE] Future Scheduled Test 2022-05-20 Pneumococcal Vaccine: [facility] 09:23:23 Pediatrics (0 to 5 Years) and At-Risk Patients (6 to 64 Years) (1 - PCV) [code = Pneumococcal Vaccine: Pediatrics (0 to 5 Years) and At-Risk Patients (6 to 64 Years) (1 - PCV)] Future Scheduled Test 2022-05-20 Hepatitis C screening [facility] 09:23:23 (procedure) [code = [id number]] Future Scheduled Test 2022-05-20 COVID-19 VACCINE ([address] [place] [address] 09:23:23 Booster for Pfizer series) [code = COVID-19 VACCINE (3 - Booster for Pfizer series)] Future Scheduled Test 2022-05-20 INFLUENZA VACCINE [facility] 09:23:23 [code = INFLUENZA VACCINE] Future Scheduled Test 2022-05-20 Pneumococcal Vaccine: [facility] 09:23:23 Pediatrics (0 to 5 Years) and At-Risk Patients (6 to 64 Years) (1 - PCV) [code = Pneumococcal Vaccine: Pediatrics (0 to 5 Years) and At-Risk Patients (6 to 64 Years) (1 - PCV)] Future Scheduled Test 2022-05-20 Hepatitis C screening [facility] 09:23:23 (procedure) [code = [id number]] Future Scheduled Test 2022-05-20 COVID-19 VACCINE ([address] [place] [address] 09:23:23 Booster for Pfizer series) [code = COVID-19 VACCINE (3 - Booster for Pfizer series)] Future Scheduled Test 2022-05-20 INFLUENZA VACCINE [facility] 09:23:23 [code = INFLUENZA VACCINE] Future Scheduled Test 2022-05-11 Pneumococcal Vaccine: [facility] 07:01:06 Pediatrics (0 to 5 Years) and At-Risk Patients (6 to 64 Years) (1 - PCV) [code = Pneumococcal Vaccine: Pediatrics (0 to 5 Years) and At-Risk Patients (6 to 64 Years) (1 - PCV)] Future Scheduled Test 2022-05-11 Hepatitis C screening [facility] 07:01:06 (procedure) [code = [id number]] Future Scheduled Test 2022-05-11 COVID-19 VACCINE ([address] [place] [address] 07:01:06 Booster for Pfizer series) [code = COVID-19 VACCINE (3 - Booster for Pfizer series)] Future Scheduled Test 2022-05-11 INFLUENZA VACCINE [facility] 07:01:06 [code = INFLUENZA VACCINE] Future Scheduled Test 2022-05-11 Pneumococcal Vaccine: [facility] 07:01:06 Pediatrics (0 to 5 Years) and At-Risk Patients (6 to 64 Years) (1 - PCV) [code = Pneumococcal Vaccine: Pediatrics (0 to 5 Years) and At-Risk Patients (6 to 64 Years) (1 - PCV)] Future Scheduled Test 2022-05-11 Hepatitis C screening [facility] 07:01:06 (procedure) [code = [id number]] Future Scheduled Test 2022-05-11 COVID-19 VACCINE ([address] [place] [address] 07:01:06 Booster for Pfizer series) [code = COVID-19 VACCINE (3 - Booster for Pfizer series)] Future Scheduled Test 2022-05-11 INFLUENZA VACCINE [facility] 07:01:06 [code = INFLUENZA VACCINE] Future Scheduled Test 2022-04-23 Pneumococcal Vaccine: [facility] 15:05:55 Pediatrics (0 to 5 Years) and At-Risk Patients (6 to 64 Years) (1 - PCV) [code = Pneumococcal Vaccine: Pediatrics (0 to 5 Years) and At-Risk Patients (6 to 64 Years) (1 - PCV)] Future Scheduled Test 2022-04-23 Hepatitis C screening [facility] 15:05:55 (procedure) [code = [id number]] Future Scheduled Test 2022-04-23 COVID-19 VACCINE ([address] [place] [address] 15:05:55 Booster for Pfizer series) [code = COVID-19 VACCINE (3 - Booster for Pfizer series)] Future Scheduled Test 2022-04-23 INFLUENZA VACCINE [facility] 15:05:55 [code = INFLUENZA VACCINE] Future Scheduled Test 2022-03-19 Pneumococcal Vaccine: [facility] 14:05:17 Pediatrics (0 to 5 Years) and At-Risk Patients (6 to 64 Years) (1 - PCV) [code = Pneumococcal Vaccine: Pediatrics (0 to 5 Years) and At-Risk Patients (6 to 64 Years) (1 - PCV)] Future Scheduled Test 2022-03-19 Hepatitis C screening [facility] 14:05:17 (procedure) [code = [id number]] Future Scheduled Test 2022-03-19 COVID-19 VACCINE ([address] [place] [address] 14:05:17 Booster for Pfizer series) [code = COVID-19 VACCINE (3 - Booster for Pfizer series)] Future Scheduled Test 2022-03-19 INFLUENZA VACCINE [facility] 14:05:17 [code = INFLUENZA VACCINE] Future Scheduled Test 2022-03-19 Pneumococcal Vaccine: [facility] 14:05:17 Pediatrics (0 to 5 Years) and At-Risk Patients (6 to 64 Years) (1 - PCV) [code = Pneumococcal Vaccine: Pediatrics (0 to 5 Years) and At-Risk Patients (6 to 64 Years) (1 - PCV)] Future Scheduled Test 2022-03-19 Hepatitis C screening [facility] 14:05:17 (procedure) [code = [id number]] Future Scheduled Test 2022-03-19 COVID-19 VACCINE ([address] [place] [address] 14:05:17 Booster for Pfizer series) [code = COVID-19 VACCINE (3 - Booster for Pfizer series)] Future Scheduled Test 2022-03-19 INFLUENZA VACCINE [facility] 14:05:17 [code = INFLUENZA VACCINE] Future Scheduled Test 2022-03-06 Pneumococcal Vaccine: [facility] 19:05:17 Pediatrics (0 to 5 Years) and At-Risk Patients (6 to 64 Years) (1 - PCV) [code = Pneumococcal Vaccine: Pediatrics (0 to 5 Years) and At-Risk Patients (6 to 64 Years) (1 - PCV)] Future Scheduled Test 2022-03-06 Hepatitis C screening [facility] 19:05:17 (procedure) [code = [id number]] Future Scheduled Test 2022-03-06 COVID-19 VACCINE ([address] [place] [address] 19:05:17 Booster for Pfizer series) [code = COVID-19 VACCINE (3 - Booster for Pfizer series)] Future Scheduled Test 2022-03-06 INFLUENZA VACCINE [facility] 19:05:17 [code = INFLUENZA VACCINE] Future Scheduled Test 2022-03-06 Pneumococcal Vaccine: [facility] 19:05:17 Pediatrics (0 to 5 Years) and At-Risk Patients (6 to 64 Years) (1 - PCV) [code = Pneumococcal Vaccine: Pediatrics (0 to 5 Years) and At-Risk Patients (6 to 64 Years) (1 - PCV)] Future Scheduled Test 2022-03-06 Hepatitis C screening [facility] 19:05:17 (procedure) [code = [id number]] Future Scheduled Test 2022-03-06 COVID-19 VACCINE ([address] [place] [address] 19:05:17 Booster for Pfizer series) [code = COVID-19 VACCINE (3 - Booster for Pfizer series)] Future Scheduled Test 2022-03-06 INFLUENZA VACCINE [facility] 19:05:17 [code = INFLUENZA VACCINE] Future Scheduled Test 2022-03-06 Pneumococcal Vaccine: [facility] 19:05:17 Pediatrics (0 to 5 Years) and At-Risk Patients (6 to 64 Years) (1 - PCV) [code = Pneumococcal Vaccine: Pediatrics (0 to 5 Years) and At-Risk Patients (6 to 64 Years) (1 - PCV)] Future Scheduled Test 2022-03-06 Hepatitis C screening [facility] 19:05:17 (procedure) [code = [id number]] Future Scheduled Test 2022-03-06 COVID-19 VACCINE ([address] [place] [address] 19:05:17 Booster for Pfizer series) [code = COVID-19 VACCINE (3 - Booster for Pfizer series)] Future Scheduled Test 2022-03-06 INFLUENZA VACCINE [facility] 19:05:17 [code = INFLUENZA VACCINE] Future Scheduled Test 2022-03-06 Pneumococcal Vaccine: [facility] 19:05:17 Pediatrics (0 to 5 Years) and At-Risk Patients (6 to 64 Years) (1 - PCV) [code = Pneumococcal Vaccine: Pediatrics (0 to 5 Years) and At-Risk Patients (6 to 64 Years) (1 - PCV)] Future Scheduled Test 2022-03-06 Hepatitis C screening [facility] 19:05:17 (procedure) [code = 452501556] Future Scheduled Test 2022-03-06 COVID-19 VACCINE ([address] [place] [address] 19:05:17 Booster for Pfizer series) [code = COVID-19 VACCINE (3 - Booster for Pfizer series)] Future Scheduled Test 2022-03-06 INFLUENZA VACCINE [facility] 19:05:17 [code = INFLUENZA VACCINE] Instructions [facility] Encounters Start End Encounter Admission Attending Care Care Encounter Source Date/Time Date/Time Type Type Clinicians Facility Department ID 2022-08-26 Outpatient MAYDA Diaz [facility] [id number] Common 10:40:02 Ronnell [address]175 [facility] 2022-08-09 Inpatient TEXANA TEXANA [id number] [place] 16:07:58 [id number] [place] 2022-06-18 Inpatient YASMEEN KHANNA [facility] [id number] [place] 08:00:00 [id number] 2022-06-11 Inpatient YASMEEN KHANNA [facility] [id number] [place] 08:00:00 [id number] [facility] 2022-06-08 Inpatient TEXANA TEXANA [id number] [place] 11:16:57 [id number] [place] 2022-05-31 Inpatient TEXANA TEXANA [id number] [place] 12:03:56 [id number] [place] 2022-05-19 [facility] [id number] Common 09:43:04 Ronnell 35504 [facility] 2022-05-03 Inpatient YASMEEN ROMERO [facility] [id number] [place] 09:00:00 MAYNOR [id number] [facility] 2022-03-23 Inpatient TEXANA TEXANA [id number] [place] 11:21:[id number] [place] [address] 2022-09-07 2022-09-07 Telephone Duc 1.2.840.1 [id number] 2099 [id number] Methodi 00:00:00 00:00:[address] 3.430.2.7 Hospit a .3.439995 l .8 2022-09-07 2022-09-07 Telephone Duc 1.2.840.1 [id number] 2099 [id number] Methodi 00:00:00 00:00:[address] 3.430.2.7 Hospit a .3.490667 l .8 2022-07-26 2022-08-06 Maynor Pierson.2.840.1 [id number] Methodi 10:00:00 16:53:40 [place] [address]09.1.[address] 3.430.2.7 Hospit a .3.433650 l .8 2022-07-26 2022-08-06 Office Maynor Romero Gonzalo 1.2.840.1 [id number] Methodi 10:00:00 16:53:40 [place] [address]05.1.[address] 3.430.2.7 Hospit a .3.421226 l .8 2022-07-29 2022-07-29 Outpatient YASMEEN KHANNA [facility] [id number] [place] 09:54:00 09:54:00 NAHUN -[id number] [facility] 2022-07-26 2022-07-26 Travel 1.2.840.1 1.2.336.767 9641 [id number] Methodi 00:00:00 00:00:[address] 3.430.2.7 0.2.7.3.698 Ho spita .3.950822 084.8 l .8 2022-07-26 2022-07-26 Travel 1.2.840.1 1.2.233.022 1477 [id number] Methodi 00:00:00 00:00:[address] 3.430.2.7 0.2.7.3.698 Ho spita .3.255452 084.8 l .8 2022-06-14 2022-07-10 Outpatient YASMEEN ROMERO [facility] [id number] [place] 07:00:00 00:01:00 MAYNOR -[id number] [facility] 2022-07-05 2022-07-05 Emergency ER Barron, [facility] [id number] [place] 23:45:00 23:58:00 Neymar -[id number] [facility] 2022-06-25 2022-06-25 Outpatient YASMEEN Diaz [facility] [id number] [place] 10:55:00 10:55:00 Ronnell -[id number] [facility] 2022-06-25 2022-06-25 Outpatient Orlando_F [facility] [id number] [place] 00:00:00 00:00:00 1216 [facility] 2022-06-25 2022-06-25 Radha SAVAGE [place] - [id number] [place] 00:00:00 00:00:00 Discovery perry Diaz 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 2022-06-24 2022-06-24 Orders Javaheri, 1.2.840.1 [id number] 2099 [id number] Methodi 00:00:00 00:00:00 Only Rich [address]60.1.[address] 3.430.2.7 Hospit a .3.240632 l .8 2022-06-24 2022-06-24 Orders Javaheri, 1.2.840.1 [id number] 2099 [id number] Methodi 00:00:00 00:00:00 Only Rich 19603.1.[address] 3.430.2.7 Hospit a .3.682586 l .8 2022-06-21 2022-06-21 Outpatient Orlando_F [facility] [id number] [place] 00:00:00 00:00:00 1212 [facility] 2022-06-21 2022-06-21 Ronnell [facility] [place] - [id number] [place] 00:00:00 00:00:00 Aracelis Klein MD: [address] [place] [phone] , Ph. 2022-06-09 2022-06-16 Inpatient ER Orlando [facility] [id number] [place] 08:05:00 15:40:00 Ronnell [id number] [facility] 2022-06-02 2022-06-09 Outpatient YASMEEN ROMERO, [facility] [id number] [place] 11:00:00 00:01:00 MAYNOR -[id number] [facility] 2022-06-07 2022-06-07 Inpatient ER ORLANDO, [facility] [id number] [place] 17:16:00 14:35:00 RONNELL -[id number] [facility] 2022-06-05 2022-06-05 Emergency ER Nkechi, [facility] [id number] [place] 15:31:00 15:45:00 Kalpesh -[id number] [facility] 2022-05-26 2022-05-26 Outpatient YASMEEN ROMERO [facility] [id number] [place] 11:00:00 11:00:00 MAYNOR -[id number] [facility] 2022-05-24 2022-05-24 Outpatient YASMEEN ROMERO [facility] [id number] [place] 11:00:00 11:00:00 MAYNOR -[id number] [facility] 2022-05-21 2022-05-21 Outpatient YASMEEN ROMERO [facility] [id number] [place] 11:00:00 11:00:00 MAYNOR -[id number] [facility] 2022-05-20 2022-05-20 Outpatient YASMEEN KHANNA, [facility] [id number] [place] 08:01:00 08:01:00 NAHUN [id number] [facility] 2022-05-19 2022-05-19 [facility]ICE [facility] [id number] Co mmon 00:00:00 00:00:00 VISIT [facility] PT LEVEL 3 - [facility] 2022-05-19 2022-05-19 Orders Dejah, 1.2.840.1 [id number] 2099 [id number] Methodi 00:00:00 00:00:00 Only Rich 34546.1.[address] 3.430.2.7 Hospit a .3.484153 l .8 2022-05-19 2022-05-19 Orders Dejah, 1.2.840.1 [id number] 2099 [id number] Methodi 00:00:00 00:00:00 Only Rich [address]136.1.[address] 3.430.2.7 Hospit a .3.913360 l .8 2022-05-18 2022-05-18 Emergency ER Brooke, [facility] [id number] [place] 19:04:00 21:55:00 Melecio -[id number] [facility] 2022-04-30 2022-04-30 Emergency ER Nkechi, [facility] [id number] [place] 14:49:00 15:34:00 Kalpesh -[id number] [facility] 2022-04-25 2022-04-25 Emergency ER Beatrice, [facility] [id number] [place] 14:10:00 14:43:00 Neymar -[id number] [facility] 2022-04-21 2022-04-21 Emergency ER Jonn, [facility] [id number] [place] 08:47:00 10:02:00 Arlet -[id number] [facility] 2022-04-19 2022-04-19 Office Wood, 1.2.840.1 [id number] Methodi 10:20:00 11:30:20 Visit Maynor Sánchez 86918.1.1 [address]37 [address] 3.430.2.7 Hospit a .3.404851 l .8 2022-04-19 2022-04-19 Office Nick, 1.2.840.1 [id number] 0266 Methodi 10:20:00 11:30:20 Visit Maynor Sánchez 82128.1.1 837 s t 3.430.2.7 Hospit a .3.951932 l .8 2022-04-19 2022-04-19 Travel 1.2.840.1 1.2.843.818 6377 [id number] Methodi 00:00:00 00:00:[address] 3.430.2.7 0.2.7.3.698 Ho spita .3.762944 084.8 l .8 2022-04-19 2022-04-19 Travel 1.2.840.1 1.2.113.374 5977 [id number] Methodi 00:00:00 00:00:[address] 3.430.2.7 0.2.7.3.698 Ho spita .3.777823 084.8 l .8 2022-04-16 2022-04-16 Emergency ER Barron, [facility] [id number] [place] 08:42:00 11:50:00 Neymar -[id number] [facility] 2022-04-14 2022-04-14 Emergency ER Jonn, [facility] [id number] [place] 07:08:00 08:22:00 Arlet -[id number] [facility] 2022-04-05 2022-04-05 Emergency ER Melissa, [facility] [id number] [place] 12:23:00 14:08:00 Alexa -[id number] [facility] 2022-04-01 2022-04-01 Outpatient Zuniga_F [facility] [id number] [place] 00:00:00 00:00:00 921 Medical Group 2022-04-01 2022-04-01 Orders Klausstevei, 1.2.840.1 [id number] 2100 [id number] Methodi 00:00:00 00:00:00 Only Rich 72523.1.[address] 3.430.2.7 Hospit a .3.149848 l .8 2022-04-01 2022-04-01 Orders Jamarcelai, 1.2.840.1 [id number] 2100 [id number] Methodi 00:00:00 00:00:00 Only Rich [address]400.1.[address] 3.430.2.7 Hospit a .3.403569 l .8 2022-03-31 2022-03-31 Emergency ER Jonn, [facility] [id number] [place] 13:34:00 16:08:00 Arlet [id number] [facility] 2022-03-21 2022-03-21 Emergency ER Nkechi, [facility] [id number] [place] 09:47:00 14:33:00 Kalpesh -[id number] [facility] 2022-03-19 2022-03-19 Office Dejah, 1.2.840.1 [id number] 2099 [id number] Methodi 14:20:00 14:33:59 Visit Rich 86778.1.[address] 3.430.2.7 Hospit a .3.092417 l .8 2022-03-19 2022-03-19 Office Marifer, 1.2.840.1 [id number] 2099 [id number] Methodi 14:20:00 14:33:59 Visit Rich 98898.1.[address] 3.430.2.7 Hospit a .3.286641 l .8 2022-03-19 2022-03-19 Travel 1.2.840.1 1.2.316.898 9961 233918 Methodi 00:00:00 00:00:[address] 3.430.2.7 0.2.7.3.698 Ho spita .3.352221 084.8 l .8 2022-03-19 2022-03-19 Travel 1.2.840.1 1.2.012.176 3422 [id number] Methodi 00:00:00 00:00:[address] 3.430.2.7 0.2.7.3.698 Ho spita .3.197906 084.8 l .8 2022-03-11 2022-03-11 Emergency ER Ryan, [facility] [id number] [place] 09:45:00 13:28:00 Chance -[id number] [facility] 2022-03-09 2022-03-09 Outpatient Gloria [facility]BSON [facility] [id number] [place] 00:00:00 00:00:00 0830 Medical Group 2022-03-09 2022-03-09 [facility] [place] - [id number] M at[place]or 00:00:00 00:00:00 Discovery perry Simpson PA-C: [facility] [place] [address], [facility], [facility] [place] [address] , Ph. 2022-03-07 2022-03-07 Emergency ER Jonn, [facility] [id number] [place] 12:01:00 13:53:00 Arlet -[id number] perry [facility] 2022-03-03 2022-03-03 Telephone Priyankmiami, 1.2.840.1 [id number] 2099 [id number] Methodi 00:00:00 00:00:[address] 3.430.2.7 Hospit a .3.502185 l .8 2022-03-03 2022-03-03 Telephone Priyankmiami, 1.2.840.1 [id number] 2099 [id number] Methodi 00:00:00 00:00:[address] 3.430.2.7 Hospit a .3.366658 l .8 2022-03-02 2022-03-02 [facility] 1.2.840.1 [id number] 00387 [id number] Methodi 05:56:00 11:56:00 Encounter Maynor Sánchez 10896.1.[address] 3.430.2.7 Hospit a .3.588098 l .8 2022-03-02 2022-03-02 [facility] 1.2.840.1 [id number] Methodi 05:56:00 11:56:00 Encounter Maynor Sánchez [address]4399.1.[address] 3.430.2.7 Hospit a .3.919250 l .8 2022-03-02 2022-03-02 Anesthesia Alfreda Duvall. 1.2.840.1 10 [id number] Methodi 07:29:00 09:55:00 Event Anna Adair 53828.1.[address] 3.430.2.7 Hospit a .3.751453 l .8 2022-03-02 2022-03-02 Anesthesia Alfreda Duvall A. 1.2.840.1 10 [id number] Methodi 07:29:00 09:55:00 Event Anna Adair 09725.1.[address] 3.430.2.7 Hospit a .3.707413 l .8 2022-03-02 2022-03-02 Surgery [place], 1.2.840.1 [id number] 6971 Methodi 07:30:00 09:50:00 Maynor LynchJuan José 39875.1.1 735 s t 3.430.2.7 Hospit a .3.039607 l .8 2022-03-02 2022-03-02 Surgery [place], 1.2.840.1 [id number] 5239 Methodi 07:30:00 09:50:00 Maynor CrisJuan José 95570.1.1 735 s t 3.430.2.7 Hospit a .3.949577 l .8 2022-03-02 2022-03-02 Telephone Marifer, 1.2.840.1 [id number] 21 [id number] Methodi 00:00:00 00:00:[address] 3.430.2.7 Hospit a .3.080486 l .8 2022-03-02 2022-03-02 Telephone Dejah, 1.2.840.1 [id number] 21 [id number] Methodi 00:00:00 00:00:[address] 3.430.2.7 Hospit a .3.135111 l .8 2022-03-01 2022-03-01 [facility], 1.2.840.1 [id number] Methodi 12:18:26 23:59:00 Encounter Maynor CrisJuan José 70969.1.[address] 3.430.2.7 Hospit a .3.799787 l .8 2022-03-01 2022-03-01 [facility], 1.2.840.1 [id number] Methodi 12:18:26 23:59:00 [place] Sánchez 70876.1.[address] 3.430.2.7 Hospit a .3.518157 l .8 2022-03-01 2022-03-01 Pre-Admiss Nick, 1.2.840.1 [id number] 206 [id number] Methodi 09:30:00 10:30:00 doris Sánchez 21498.1.1 034 s t Testing 3.430.2.7 Hospit a .3.479043 l .8 2022-03-01 2022-03-01 Pre-Admiss Nick, 1.2.840.1 [id number] 779 [id number] Methodi 09:30:00 10:30:00 doris Sánchez 74309.1.1 034 s t Testing 3.430.2.7 Hospit a .3.546808 l .8 2022-03-01 2022-03-01 Telephone [place], 1.2.840.1 [id number] 21 [id number] Methodi 00:00:00 00:00:[address] 3.430.2.7 Hospit a .3.259801 l .8 2022-03-01 2022-03-01 Travel 1.2.840.1 1.2.777.196 1609 017937 Methodi 00:00:00 00:00:[address] 3.430.2.7 0.2.7.3.698 Ho spita .3.636117 084.8 l .8 2022-03-01 2022-03-01 Telephone [place], 1.2.840.1 [id number] Methodi 00:00:00 00:00:[address] 3.430.2.7 Hospit a .3.686218 l .8 2022-03-01 2022-03-01 Travel 1.2.840.1 1.2.293.722 5072 173078 Methodi 00:00:00 00:00:[address] 3.430.2.7 0.2.7.3.698 Ho spita .3.932160 084.8 l .8 2022-02-26 2022-02-26 Telephone Nick, 1.2.840.1 [id number] Methodi 00:00:00 00:00:00 Maynor Lynch. 33131.1.1 279 s t 3.430.2.7 Hospit a .3.723849 l .8 2022-02-26 2022-02-26 Travel 1.2.840.1 1.2.226.501 4486 227349 Methodi 00:00:00 00:00:[address] 3.430.2.7 0.2.7.3.698 Ho spita .3.338089 084.8 l .8 2022-02-26 2022-02-26 [facility], 1.2.840.1 [id number] Methodi 00:00:00 00:00:00 Maynor Lynch. 26973.1.1 279 s t 3.430.2.7 Hospit a .3.823349 l .8 2022-02-26 2022-02-26 Travel 1.2.840.1 1.2.335.430 8074 [id number] Methodi 00:00:00 00:00:[address] 3.430.2.7 0.2.7.3.698 Ho spita .3.181165 084.8 l .8 2022-02-24 2022-02-25 [facility] 1.2.840.1 1041 24297 [id number] Methodi 15:25:00 19:45:00 Basilio Diallo 98639.1.[address] 3.430.2.7 Hospit a .3.591976 l .8 2022-02-24 2022-02-25 [facility] 1.2.840.1 1 89109 [id number] Methodi 15:25:00 19:45:00 Basilio Diallo 06057.1.[address] 3.430.2.7 Hospit a .3.831942 l .8 2022-02-25 2022-02-25 [facility], 1.2.840.1 [id number] Methodi 00:00:00 00:00:00 Orders Maynor Sánchez 25964.1.1 241 s t 3.430.2.7 Hospit a .3.805511 l .8 2022-02-25 2022-02-25 Orders Dejah, 1.2.840.1 [id number] 2099 612795 Methodi 00:00:00 00:00:00 Only Rich 61959.1.[address] 3.430.2.7 Hospit a .3.391855 l .8 2022-02-25 2022-02-25 [facility] Nick, 1.2.840.1 [id number] 098 [id number] Methodi 00:00:00 00:00:00 Orders Maynor Sánchez 69841.1.1 241 s t 3.430.2.7 Hospit a .3.833968 l .8 2022-02-25 2022-02-25 Orders Dejah, 1.2.840.1 [id number] 2099 227215 Methodi 00:00:00 00:00:00 Only Rich [address]74.1.[address] 3.430.2.7 Hospit a .3.541079 l .8 2022-02-24 2022-02-24 [facility], 1.2.840.1 [id number] Methodi 18:39:58 23:59:00 Encounter Maynor Sánchez 82284.1.[address] 3.430.2.7 Hospit a .3.666290 l .8 2022-02-24 2022-02-24 [facility], 1.2.840.1 [id number] Methodi 18:39:58 23:59:00 Encounter Maynor Sánchez 05394.1.[address] 3.430.2.7 Hospit a .3.868331 l .8 2022-02-24 2022-02-24 [facility], 1.2.840.1 [id number] Methodi 18:39:26 23:59:00 Encounter Maynor Sánchez [address]9988.1.[address] 3.430.2.7 Hospit a .3.504405 l .8 2022-02-24 2022-02-24 [facility], 1.2.840.1 [id number] Methodi 18:39:26 23:59:00 Encounter Maynor Sánchez 42192.1.[address] 3.430.2.7 Hospit a .3.059532 l .8 2022-02-24 2022-02-24 [facility], 1.2.840.1 [id number] Methodi 00:00:00 00:00:00 Only Maynor Sánchez 93109.1.1 790 s t 3.430.2.7 Hospit a .3.230599 l .8 2022-02-24 2022-02-24 Travel 1.2.840.1 1.2.569.680 7007 [id number] Methodi 00:00:00 00:00:[address] 3.430.2.7 0.2.7.3.698 Ho spita .3.535628 084.8 l .8 2022-02-24 2022-02-24 [facility], 1.2.840.1 [id number] 0955 Methodi 00:00:00 00:00:00 Only Maynor Sánchez 82392.1.1 790 s t 3.430.2.7 Hospit a .3.118808 l .8 2022-02-24 2022-02-24 Travel 1.2.840.1 1.2.129.972 0585 [id number] Methodi 00:00:00 00:00:[address] 3.430.2.7 0.2.7.3.698 Ho spita .3.005911 084.8 l .8 2022-02-12 2022-02-12 Emergency ER Nkechi, [facility] [id number] [place] 08:42:00 13:17:00 Kalpesh -[id number] [facility] 2022-01-26 2022-01-26 Outpatient ANDREIA ANTONIO [facility] 909 [place] 12:18:00 12:18:00 _DOREEN 0719 da [facility] Program 2022-01-17 2022-01-17 Emergency ER Melissa, [facility] [id number] [place] 18:06:00 21:18:00 Alexa -[id number] [facility] 2021-12-18 2021-12-18 Office Nick, 1.2.840.1 [id number] Methodi 10:20:00 11:32:26 Visit Maynor Sánchez 27366.1.1 071 s t 3.430.2.7 Hospit a .3.577030 l .8 2021-12-18 2021-12-18 Office Nick, 1.2.840.1 [id number] Methodi 10:20:00 11:32:26 Visit Maynor Sánchez 67809.1.1 071 s t 3.430.2.7 Hospit a .3.286204 l .8 2021-12-18 2021-12-18 [facility] [id number] [place] 00:00:00 00:00:00 MAY[address] 2021-12-18 2021-12-18 Travel 1.2.840.1 1.2.153.488 6072 [id number] Methodi 00:00:00 00:00:[address] 3.430.2.7 0.2.7.3.698 Ho spita .3.543006 084.8 l .8 2021-12-18 2021-12-18 [facility] [id number] [place] 00:00:00 00:00:00 MAYNOR [address] 2021-12-18 2021-12-18 Travel 1.2.840.1 1.2.885.279 1838 [id number] Methodi 00:00:00 00:00:[address] 3.430.2.7 0.2.7.3.698 Ho spita .3.553296 084.8 l .8 2021-11-30 2021-11-30 Emergency ER Rico, [facility] [id number] [place] 01:26:00 04:02:00 [id number] [facility] 2021-11-06 2021-11-06 Outpatient Hawkins_M [facility] [id number] [place] 12:33:00 12:33:00 050 Medical Group 2021-11-06 2021-11-06 Outpatient Hawkins_M [facility] [id number] [place] 00:00:00 00:00:00 0429 Medical Group 2021-11-06 2021-11-06 Susan [facility] [place] - [id number] M [place] 00:00:00 00:00:00 Alma Martinez Medical Medical FIRE MARSHAL REFINERY: [address], [place] [address] , Ph. 2021-11-05 2021-11-05 Outpatient Hawkins_M [facility] [id number] [place] 04:51:00 04:51:00 0428 Medical Group 2021-09-14 2021-09-14 Outpatient Koudela_A [facility] [id number] [place] 12:39:00 12:39:00 0307 Medical Group 2021-09-14 2021-09-14 Travel 1.2.840.1 1.2.151.694 [id number] Methodi 00:00:00 00:00:[address] 3.430.2.7 0.2.7.3.698 Ho spita .3.727124 084.8 l .8 2021-09-14 2021-09-14 Kia [facility] [place] - [id number] M [place] 00:00:00 00:00:00 Koudela, Discovery da PA-C: [facility], [place] [address] , Ph. 2021-08-10 2021-08-10 Outpatient Koudela_A [facility] [id number] [place] 11:36:00 11:36:00 0131 [facility] 2021-08-10 2021-08-10 Outpatient Koudela_A MMG MMG [id number] -[id number] [place] 11:36:00 11:36:00 0211 [facility] 2021-08-10 2021-08-10 Outpatient YASMEEN SIMPSON, [facility] [id number] [place] 11:05:00 11:05:00 KIA -[id number] [facility] 2021-06-24 2021-06-24 Inpatient ER Nawaf, [facility] [id number] [place] 00:24:00 13:53:00 Abraham -[id number] [facility] 2021-05-04 2021-05-04 Outpatient Zuniga_F MMG [facility] [id number] 2020 [place] 10:22:00 10:22:00 1220 [facility] 2021-04-28 2021-04-29 [facility] [id number] [place] 18:03:00 01:22:00 BARBARA -[id number] [facility] 2021-03-26 2021-03-26 Outpatient Zuniga_F MMG G [id number]- 2020 [place] 10:53:00 10:53:00 0916 [facility] 2021-03-26 2021-03-26 Outpatient EL Diaz, [facility] [id number] [place] 08:44:00 08:44:00 Ronnell -[id number] [facility] 2021-03-26 2021-03-26 Ronnell MM [place] - [id number] [place] 00:00:00 00:00:00 Aracelis Klein MD: [address] [facility] [address], [place] [address] , Ph. 2021-03-10 2021-03-10 Outpatient Zuniga_F MMG [facility] [id number] [place] 04:23:00 04:23:00 0831 [facility] 2021-03-10 2021-03-10 Ronnell [facility] [place] - [id number] [place] 00:00:00 00:00:00 Aracelis Klein Medical MD: [address] [place] [address] [address], [place] [address] , Ph. 2021-02-19 2021-02-19 Emergency ER CELSA MUNGUIA [facility] [id number] [place] 09:17:00 18:11:00 -[id number] [facility] 2021-02-18 2021-02-18 Outpatient Zuniga_F MMG [facility] [id number] [place] 10:58:00 10:58:00 0811 [facility] 2021-02-13 2021-02-13 Outpatient Zuniga_S MMG [facility] [id number] [place] 11:36:00 11:36:00 0806 [facility] 2021-02-11 2021-02-11 Outpatient Zuniga_S MMG [facility] [id number] 2020 [place] 04:11:00 04:11:00 0804 [facility] 2021-01-18 2021-01-18 Emergency ER CHINO [facility] [id number] [place] 07:23:00 15:33:00 VALEFF -[id number] [facility] 2021-01-02 2021-01-02 Outpatient Zuniga_S MMG [facility] [id number] [place] 11:03:00 11:03:00 0625 [facility] 2021-01-02 2021-01-02 Outpatient Zuniga_S MMG [facility] [id number] 2020 [place] 11:03:00 11:03:00 0626 [facility] 2021-01-02 2021-01-02 Radha [facility] [place] - [id number] [place] 00:00:00 00:00:00 Discovery perry Diaz 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 2020-07-15 2020-07-15 [place]iga_[place] [id number]- 2020 [place] 12:50:00 12:50:00 0105 Medical Group 2020-07-15 2020-07-15 Outpatient Zuniga_F MMG MM [id number] [place] 12:50:00 12:50:00 0111 Medical Group 2020-07-15 2020-07-15 Tyson [facility] [place] - [id number] M at[place] 00:00:00 00:00:00 Discovery perry Munoz MD: [address] [facility] [address] [address] , Ph. 2020-07-14 2020-07-14 Outpatient Zuniga_F MMG MM [id number] [place] 04:30:00 04:30:00 0104 Medical Group 2020-07-14 2020-07-14 Ronnell [facility] [place] - [id number] [place] 00:00:00 00:00:00 Aracelis Klein MD: [address] [place] [address] , Ph. 2020-07-10 2020-07-10 Outpatient Zuniga_F MMG MM [id number] [place] 10:29:00 10:29:00 1231 Medical Group 2020-07-07 2020-07-08 Emergency ER CHINO [facility] [id number] [place] 23:32:00 12:45:00 PRISCILA [id number] [facility] 2020-02-26 2020-02-26 Outpatient Zuniga_F MMG MMG [id number] [place] 12:39:00 12:39:00 1229 Medical Group 2020-02-26 2020-02-26 Outpatient Zuniga_F MMG [facility] [id number] [place] 12:39:00 12:39:00 1230 Medical Group 2020-01-30 2020-01-30 Outpatient Zuniga_F MMG MM [id number] [place] 08:08:00 08:08:00 0722 Medical Group 2020-01-30 2020-01-30 Ronnell MM [place] - [id number] [place] 00:00:00 00:00:00 Micky Lozano Medical Medical MD: [address] [place] [address] [address] [address] , Ph. 2020-01-29 2020-01-29 Outpatient Raju_P MMG [facility] [id number] [place] 04:40:00 04:40:00 0721 Medical [facility] 2019-11-06 2019-11-06 Outpatient Raju_P MMG MMG [id number] [place] 03:29:00 03:29:00 0428 Medical Group 2019-11-06 2019-11-06 [place] [id number] [place] 03:29:00 03:29:00 0429 Medical Group 2019-03-02 2019-03-02 Outpatient YASMEEN ASCENCIO, [facility] [id number] [place] 11:02:00 11:02:00 KENNETH -[id number] [facility] 2019-02-13 2019-02-13 Emergency ER CHINO [facility] [id number] [place] 17:16:00 18:34:00 PRISCILA -[id number] [facility] 2018-02-07 2018-02-07 Outpatient YASMEEN LUU [facility] D00 [id number] [place] 09:47:00 09:47:00 SUNNY Llanes -[id number] [facility] 2017-10-12 2017-10-12 Emergency ER OWO, TOKS [facility] [id number] [place] 17:50:00 19:49:00 -[id number] [facility] 2017-06-01 2017-06-01 Emergency ER OWO, TOKS [facility] [id number] [place] 04:32:00 06:26:00 -[id number] [facility] 2017-02-24 2017-02-24 Outpatient EL SILVA, [facility] [id number] [place] 08:41:00 08:41:00 BYMARIA G -[id number] [facility] 2017-01-13 2017-01-13 Emergency ER UGORJI, [facility] [id number] [place] 00:20:00 03:56:00 CLEMENT -[id number] [facility] 2016-09-02 2016-09-02 Emergency ER UGORJI, [facility] [id number] [place] 13:20:00 14:30:00 CLEMENT -[id number] [facility] 2016-04-28 2016-04-29 Emergency ER OWO, TOKS [facility] [id number] [place] 22:59:00 01:22:00 -[id number] [facility] 2015-09-28 2015-09-29 Emergency ER SAEMI, [facility] [id number] [place] 21:04:00 08:15:00 NUNO -[id number] [facility] 2015-05-05 2015-05-05 Emergency ER UGORJI, [facility] [id number] [place] 19:34:00 21:26:00 CLEMENT -[id number] [facility] 2014-11-07 2014-11-08 Emergency ER OWO, TOKS [facility] [id number] [place] 23:26:00 04:30:00 -[id number] [facility] 2014-08-01 2014-08-01 Outpatient EL VALARNOLDOPPILLI [facility] D00 [id number] [place] 12:03:00 12:03:00 SUNNY [place]anes -[id number] [facility] 2011-12-29 2011-12-29 Emergency ER OTINWA, [facility] [id number] [place] 19:51:00 22:10:00 PARKER -[id number] [facility] 2011-11-12 2011-11-12 [facility] [id number] [place] 07:58:00 07:58:00 L, AMMINI -[id number] [facility] 2011-10-10 2011-10-11 Emergency ER , [facility] [id number] [place] 22:24:00 01:45:00 WASIM -[id number] [facility] 2011-10-06 2011-10-06 Emergency ER JOHNNY, [facility] [id number] [place] 00:27:00 06:30:00 CLEMENT -[id number] [facility] 2011-09-08 2011-09-08 [place] [id number] [place] 11:57:00 11:57:00 L, AMMINI -[id number] [facility] 2010-06-16 2010-06-17 Emergency ER LARISSA, [facility] [id number] [place] 18:00:00 04:05:00 ZBIGNIEW -[id number] d a [facility] 2010-03-24 2010-03-24 [facility] [id number] [place] 14:21:00 14:21:00 L, AMMINI -[id number] [facility] Results Test Description Test Time Test Comments [...] alkaline 60 U/L 40-1 30 phosphatase, total) [facility] 12:31:00 Test Item Value Reference Range Interpretation Comments lipase (test code = lipase) 290 U/L 13-60 H [facility] W Auto Differential panel - [id number] 12:07:00 Test Item Value Reference Range Interpretation [...] NRBC# (test code = NRBC#) 0 K/uL [facility] (reflexed)2022-06-16 07:40:00 Test Item Value Reference [...] (test code = normal normal platelet morphology) [facility]22-[facility]-07 07:12:00 Test Item Value Reference Range Interpretation Comments lipase (test code = lipase) 432 U/L 13-60 H [facility] 2000 panel - Serum or Plasma [...] U/L 40-130 code = alkaline phosphatase, total) [facility]22-[facility]-07 07:06:00 Test Item Value Reference Range Interpretation Comments LDH (test code = LDH) 421 U/L 135-225 H [facility]2022-12-07 07:06:00 Test Item Value Reference Range Interpretation Comments LDH (test code = LDH) 421 U/L 135-225 H [facility] W Auto Differential panel - [id number] 06:46:00 Test Item Value Reference Range Interpretation [...] morph. normal RBC code = morphology comment) [facility]2022-12-06 11:10:00 Test Item Value Reference Range Interpretation Comments lipase (test code = lipase) 478 U/L 13-60 H [facility] 2000 panel - Serum or Plasma [...] U/L 40-130 code = alkaline phosphatase, total) [facility] W Ordered Manual Differential panel - [id number] 10:52:00 Test Item Value Reference Range Interpretation [...] (test normal normal code = platelet morphology) [facility] (reflexed)2022-06-14 05:46:00 Test Item Value Reference [...] (test code = normal normal platelet morphology) [facility] 2000 panel - Serum or Plasma [...] U/L 40-130 code = alkaline phosphatase, total) [facility]2022-12-05 05:30:00 Test Item Value Reference Range Interpretation Comments lipase (test code = lipase) 273 U/L 13-60 H [facility] W Auto Differential panel - [id number] 05:16:00 Test Item Value Reference Range Interpretation [...] morph. normal RBC code = morphology comment) [facility] diff (reflexed)2022-06-13 11:13:00 Test Item Value Reference [...] (test code = normal normal platelet morphology) [facility] diff (reflexed)2022-06-13 11:13:00 Test Item Value Reference [...] (test code = normal normal platelet morphology) [facility] diff (reflexed)2022-06-13 11:13:00 Test Item Value Reference [...] (test code = normal normal platelet morphology) [facility]reflexed)2022-06-13 11:13:00 Test Item Value Reference [...] code = normal normal platelet morphology) [facility] W Auto Differential panel - [id number] 08:26:00 Test Item Value Reference Range Interpretation [...] (test code = NRBC#) 0 K/uL [facility] W Auto Differential panel - [id number] 08:26:00 Test Item Value Reference Range Interpretation [...] NRBC# (test code = NRBC#) 0 K/uL [facility] 2000 panel - Serum or Plasma [...] U/L 40-130 code = alkaline phosphatase, total) [facility]22-[facility]-04 08:22:00 Test Item Value Reference Range Interpretation Comments lipase (test code = lipase) 226 U/L 13-60 H [facility] 2000 panel - Serum or Plasma [...] U/L 40-130 code = alkaline phosphatase, total) [facility]22-12-04 08:22:00 Test Item Value Reference Range Interpretation Comments lipase (test code = lipase) 226 U/L 13-60 H [facility] 2000 panel - Serum or Plasma [...] U/L 40-130 code = alkaline phosphatase, total) [facility]2022-12-03 04:36:00 Test Item Value Reference Range Interpretation Comments lipase (test code = lipase) 102 U/L 13-60 H [facility]2022-12-03 04:36:00 Test Item Value Reference Range Interpretation Comments lipase (test code = lipase) 102 U/L 13-60 H [facility] 2000 panel - Serum or Plasma [...] U/L 40-130 code = alkaline phosphatase, total) [facility]22-12-03 04:36:00 Test Item Value Reference Range Interpretation Comments lipase (test code = lipase) 102 U/L 13-60 H [facility]2022-12-03 04:36:00 Test Item Value Reference Range Interpretation Comments lipase (test code = lipase) 102 U/L 13-60 H [facility] W Auto Differential panel - [id number] 04:18:00 Test Item Value Reference Range Interpretation [...] (test code = NRBC#) 0 K/uL [facility] W Auto Differential panel - [id number] 04:18:00 Test Item Value Reference Range Interpretation [...] NRBC# (test code = NRBC#) [facility] 08:39[facility]00 Test Item Value Reference Range Interpretation Comments LDH (test code = LDH) 457 U/L 135-225 H [facility] 08:39:00 Test Item Value Reference Range Interpretation Comments LDH (test code = LDH) 457 U/L 135-225 H [facility] [id number] 08:26:00 Test Item Value Reference Range Interpretation Comments lactic acid (test code = lactic 1.12 mmol/L 0.5-2.2 acid) [facility] [id number] 08:26:00 Test Item Value Reference Range Interpretation Comments lactic acid (test code = lactic 1.12 mmol/L 0.5-2.2 acid) [facility] 07:47:00 Test Item Value Reference Range Interpretation Comments lipase (test code = lipase) 136 U/L 13-60 H [facility]2022-12-02 07:47:00 Test Item Value Reference Range Interpretation Comments lipase (test code = lipase) 136 U/L 13-60 H [facility] 1999 panel - Serum or Plasma 2022-06-11 07:46:00 [...] U/L 40-130 code = alkaline phosphatase, total) [facility] 1999 panel - Serum or Plasma 2022-06-11 07:46:00 [...] U/L 40-130 code = alkaline phosphatase, total) [facility] (reflexed)2022-06-11 07:30:00 Test Item Value Reference [...] (test code = normal normal platelet morphology) [facility]2022-06-11 07:30:00 Test Item Value Reference [...] code = normal normal platelet morphology) [facility] W Auto Differential panel - [id number] 07:23:00 Test Item Value Reference Range Interpretation [...] normal RBC code = morphology comment) [facility] W Auto Differential panel - [id number] 07:23:00 Test Item Value Reference Range Interpretation [...] morph. normal RBC code = morphology comment) [facility] panel - Arterial [id number] 15:03:00 Test Item Value Reference Range Interpretation [...] (test code = O2 7.9 mmol/L content) [facility] panel - Arterial [id number] 15:03:00 Test Item Value Reference Range Interpretation [...] (test code = O2 7.9 mmol/L content) [facility]2022-12-01 13:03:00 Test Item Value Reference Range Interpretation Comments blood culture (test code = final report. blood culture) [facility]2022-12-01 13:03:00 Test Item Value Reference Range Interpretation Comments blood culture (test code = final report. blood culture) [facility] diff (reflexed)2022-06-10 07:41:00 Test Item Value Reference [...] (test code = normal normal platelet morphology) [facility] diff (reflexed)2022-06-10 07:41:00 Test Item Value Reference [...] (test code = normal normal platelet morphology) [facility] 07:33:00 Test Item Value Reference Range Interpretation Comments LDH (test code = LDH) 319 U/L 135-225 H [facility]2022-12-01 07:33:00 Test Item Value Reference Range Interpretation Comments LDH (test code = LDH) 319 U/L 135-225 H [facility] 2000 panel - Serum or Plasma [...] U/L 40-130 code = alkaline phosphatase, total) [facility]22-[facility]-01 07:28:00 Test Item Value Reference Range Interpretation Comments lipase (test code = lipase) 297 U/L 13-60 H [facility] 2000 panel - Serum or Plasma [...] U/L 40-130 code = alkaline phosphatase, total) [facility]22-12-01 07:28:00 Test Item Value Reference Range Interpretation Comments lipase (test code = lipase) 297 U/L 13-60 H [facility] Centerlactic [id number] 07:26:00 Test Item Value Reference Range Interpretation Comments lactic acid (test code = lactic 1.18 mmol/L 0.5-2.2 acid) [facility] Centerlaflic [id number] 07:26:00 Test Item Value Reference Range Interpretation Comments lactic acid (test code = lactic 1.18 mmol/L 0.5-2.2 acid) [facility] [id number] 06:53:00 Test Item Value Reference Range Interpretation Comments ionized calcium (test code = 4.17 mg/dL 4.34-5.00 L ionized calcium) [facility] W Auto Differential panel - [id number] 06:53:00 Test Item Value Reference Range Interpretation [...] morph. normal RBC code = morphology comment) [facility] [id number] 06:53:00 Test Item Value Reference Range Interpretation Comments ionized calcium (test code = 4.17 mg/dL 4.34-5.00 L ionized calcium) [facility] W Auto Differential panel - [id number] 06:53:00 Test Item Value Reference Range Interpretation [...] morph. normal RBC code = morphology comment) [facility]2022-11-30 06:34:00 Test Item Value Reference Range Interpretation Comments lipase (test code = lipase) 1018 U/L 13-60 H [facility]2022-11-30 06:34:00 Test Item Value Reference Range Interpretation Comments lipase (test code = lipase) 1018 U/L 13-60 H [place] [id number] 06:33:00 Test Item Value Reference Range Interpretation Comments LDH (test code = LDH) 296 U/L 135-225 H [place] [id number] 06:33:00 Test Item Value Reference Range Interpretation Comments LDH (test code = LDH) 296 U/L 135-225 H [facility] 2000 panel - Serum or Plasma [...] U/L 40-130 code = alkaline phosphatase, total) [facility] 2000 panel - Serum or Plasma [...] U/L 40-130 code = alkaline phosphatase, total) [facility] [id number] 06:26:00 Test Item Value Reference Range Interpretation Comments lactic acid (test code = lactic 1.00 mmol/L 0.5-2.2 acid) [facility] [id number] 06:26:00 Test Item Value Reference Range Interpretation Comments lactic acid (test code = lactic 1.00 mmol/L 0.5-2.2 acid) [facility] W Auto Differential panel - [id number] 06:16:00 Test Item Value Reference Range Interpretation [...] (test code = NRBC#) 0 K/uL [facility] W Auto Differential panel - [id number] 06:16:00 Test Item Value Reference Range Interpretation [...] NRBC# (test code = NRBC#) 0 K/uL [facility] [id number] 05:06:00 Test Item Value Reference Range Interpretation [...] (test code = 6.828 cholesterol risk ratio) [facility] [id number] 05:06:00 Test Item Value Reference Range Interpretation [...] (test code = 6.828 cholesterol risk ratio) [facility]2022-11-29 04:59:00 Test Item Value Reference Range Interpretation Comments lipase (test code = lipase) 1955 U/L 13-60 H [facility]2022-11-29 04:59:00 Test Item Value Reference Range Interpretation Comments lipase (test code = lipase) 1955 [facility]L [facility]60 [facility]:59[facility]00 Test Item Value Reference Range Interpretation Comments lipase (test code = lipase) 1955 U[facility]L 13[facility]60 [facility] 04:59:00 Test Item Value Reference Range Interpretation Comments lipase (test code = lipase) 1953 U/L 13-60 H [facility] W Auto Differential panel - [id number] 04:07:00 Test Item Value Reference Range Interpretation [...] (test code = NRBC#) 0 K/uL [facility] W Auto Differential panel - [id number] 04:07:00 Test Item Value Reference Range Interpretation [...] NRBC# (test code = NRBC#) 0 [facility] [id number] 18:23:00 Test Item Value Reference Range Interpretation Comments alcohol level (test code = alcohol < 10.0 0.0-10.1 level) [facility] [id number] 18:23:00 Test Item Value Reference Range Interpretation Comments alcohol level (test code = alcohol < 10.0 0.0-10.1 level) [facility] [id number] 11:47:00 Test Item Value Reference Range Interpretation Comments POC glucose (test code = 103 mg/dL 65-99 H Ope rator Name: 80232-1) Esmail Quratula in [facility] ID: [id number] able: RN Notified Lab Interpretation (test Abnormal code = 36431-9) [facility]2022-08-23 11:47:00 Test Item Value Reference Range Interpretation Comments POC glucose (test code = 103 mg/dL 65-99 H Ope rator Name: 15834-4) Esmail Quratula in [facility] ID: [id number] able: RN Notified Lab Interpretation (test Abnormal code = 21786-6) [facility]2022-08-23 11:47:00 Test Item Value Reference Range Interpretation Comments POC glucose (test code = 103 mg/dL 65-99 H Ope rator Name: 10861-0) Esmail Quratula in [facility] ID: [id number] able: RN Notified Lab Interpretation (test Abnormal code = 75871-8) [facility]2022-08-23 11:47:00 Test Item Value Reference Range Interpretation Comments POC glucose (test code = 103 mg/dL 65-99 H Ope rator Name: 13846-2) Esmail Quratula in [facility] ID: [id number] able: RN Notified Lab Interpretation (test Abnormal code = 62434-4) [facility]2022-08-23 11:47:00 Test Item Value Reference Range Interpretation Comments POC glucose (test code = 103 mg/dL 65-99 H Ope rator Name: 36247-4) Esmail Quratula in [facility] ID: [id number] able: RN Notified Lab Interpretation (test Abnormal code = 43742-1) [facility]2022-08-23 11:47:00 Test Item Value Reference Range Interpretation Comments POC glucose (test code = 103 mg/dL 65-99 H Ope rator Name: 74249-9) Esmail Quratula in [facility] ID: [id number] able: RN Notified Lab Interpretation (test Abnormal code = 99598-3) [facility]2022-08-23 11:47:00 Test Item Value Reference Range Interpretation Comments POC glucose (test code = 103 mg/dL 65-99 H Ope rator Name: 19278-5) Esmail Quratula in [facility] ID: [id number] able: RN Notified Lab Interpretation (test Abnormal code = 76944-3) [facility]2022-08-23 11:47:00 Test Item Value Reference Range Interpretation Comments POC glucose (test code = 103 mg/dL 65-99 H Ope rator Name: 04235-2) Esmail Quratula in [facility] ID: [id number] able: RN Notified Lab Interpretation (test Abnormal code = 08858-1) [facility]2022-08-23 11:47:00 Test Item Value Reference Range Interpretation Comments POC glucose (test code = 103 mg/dL 65-99 H Ope rator Name: 32678-7) Esmail Quratula in [facility] ID: [id number] able: RN Notified Lab Interpretation (test Abnormal code = 75889-5) [facility]2022-08-23 11:47:00 Test Item Value Reference Range Interpretation Comments POC glucose (test code = 103 mg/dL 65-99 H Ope rator Name: 19920-2) Esmail Quratula in [facility] ID: [id number] able: RN Notified Lab Interpretation (test Abnormal code = 05402-1) [facility]2022-08-23 11:47:00 Test Item Value Reference Range Interpretation Comments POC glucose (test code = 103 mg/dL 65-99 H Ope rator Name: 97164-2) Esmail Quratula in [facility] ID: [id number] able: RN Notified Lab Interpretation (test Abnormal code = 60275-7) [facility]2022-08-23 11:47:00 Test Item Value Reference Range Interpretation Comments POC glucose (test code = 103 mg/dL 65-99 H Ope rator Name: 46749-3) Esmail Quratula in [facility] ID: [id number] able: RN Notified Lab Interpretation (test Abnormal code = 19064-7) [facility]2022-08-23 11:47:00 Test Item Value Reference Range Interpretation Comments POC glucose (test code = 103 mg/dL 65-99 H Ope rator Name: 09060-4) Esmail Quratula in [facility] ID: [id number] able: RN Notified Lab Interpretation (test Abnormal code = 63980-9) [facility]2022-08-23 11:47:00 Test Item Value Reference Range Interpretation Comments POC glucose (test code = 103 mg/dL 65-99 H Ope rator Name: 90865-4) Esmail Quratula in [facility] ID: [id number] able: RN Notified Lab Interpretation (test Abnormal code = 20908-3) [facility]2022-08-23 11:47:00 Test Item Value Reference Range Interpretation Comments POC glucose (test code = 103 mg/dL 65-99 H Ope rator Name: 36464-8) Esmail Quratula in [facility] ID: [id number] able: RN Notified Lab Interpretation (test Abnormal code = 01442-1) [facility]2022-08-23 11:47:00 Test Item Value Reference Range Interpretation Comments POC glucose (test code = 103 mg/dL 65-99 H Ope rator Name: 31771-3) Esmail Quratula in [facility] ID: [id number] able: RN Notified Lab Interpretation (test Abnormal code = 59830-2) [facility]2022-08-23 11:47:00 Test Item Value Reference Range Interpretation Comments POC glucose (test code = 103 mg/dL 65-99 H Ope rator Name: 74728-1) Esmail Quratula in [facility] ID: [id number] able: RN Notified Lab Interpretation (test Abnormal code = 79419-8) [facility]2022-08-23 11:47:00 Test Item Value Reference Range Interpretation Comments POC glucose (test code = 103 mg/dL 65-99 H Ope rator Name: 04486-4) Esmail Quratula in [facility] ID: [id number] able: RN Notified Lab Interpretation (test Abnormal code = 90630-7) [facility]2022-08-23 11:47:00 Test Item Value Reference Range Interpretation Comments POC glucose (test code = 103 mg/dL 65-99 H Ope rator Name: 45446-3) Nba Urbina in [facility] ID: [id number] able: RN Notified Lab Interpretation (test Abnormal code = 05399-8) [facility] Pre/Post [id number] 20:29:23 Test Item Value Reference Range Interpretation Comments Ventricular rate (test code = 253) Atrial rate (test code = 255) CT interval (test code = 266) QRSD interval [...] Emery MD (2064) on 03/01/2022 3:29:18 PM [facility] Pre/Post [id number] 20:29:23 Test Item Value Reference Range Interpretation Comments Ventricular rate (test code = 253) Atrial rate (test code = 255) CT interval (test code = 266) QRSD interval [...] Emery MD (2064) on 03/01/2022 3:29:18 PM [facility] Pre/Post [id number] 20:29:23 Test Item Value Reference Range Interpretation Comments Ventricular rate (test code = 253) Atrial rate (test code = 255) CT interval (test code = 266) QRSD interval [...] Emery MD (2064) on 03/01/2022 3:29:18 PM [facility] Pre/Post [id number] 20:29:23 Test Item Value Reference Range Interpretation Comments Ventricular rate (test code = 253) Atrial rate (test code = 255) CT interval (test code = 266) QRSD interval [...] Emery MD (2064) on 03/01/2022 3:29:18 PM [facility] Pre/Post [id number] 20:29:23 Test Item Value Reference Range Interpretation Comments Ventricular rate (test code = 253) Atrial rate (test code = 255) CT interval (test code = 266) QRSD interval [...] Emery MD (2064) on 03/01/2022 3:29:18 PM [facility] Pre/Post [id number] 20:29:23 Test Item Value Reference Range Interpretation Comments Ventricular rate (test code = 253) Atrial rate (test code = 255) CT interval (test code = 266) QRSD interval [...] Emery MD (2064) on 03/01/2022 3:29:18 PM [facility] Pre/Post [id number] 20:29:23 Test Item Value Reference Range Interpretation Comments Ventricular rate (test code = 253) Atrial rate (test code = 255) CT interval (test code = 266) QRSD interval [...] Emery MD (2064) on 03/01/2022 3:29:18 PM [facility] Pre/Post [id number] 20:29:23 Test Item Value Reference Range Interpretation Comments Ventricular rate (test code = 253) Atrial rate (test code = 255) CT interval (test code = 266) QRSD interval [...] Emery MD (2064) on 03/01/2022 3:29:18 PM [facility] Pre/Post [id number] 20:29:23 Test Item Value Reference Range Interpretation Comments Ventricular rate (test code = 253) Atrial rate (test code = 255) CT interval (test code = 266) QRSD interval [...] Emery MD (2064) on 03/01/2022 3:29:18 PM [facility] Pre/Post [id number] 20:29:23 Test Item Value Reference Range Interpretation Comments Ventricular rate (test code = 253) Atrial rate (test code = 255) CT interval (test code = 266) QRSD interval [...] Emery MD (2064) on 03/01/2022 3:29:18 PM [facility] Pre/Post [id number] 20:29:23 Test Item Value Reference Range Interpretation Comments Ventricular rate (test code = 253) Atrial rate (test code = 255) CT interval (test code = 266) QRSD interval [...] Emery MD (2064) on 03/01/2022 3:29:18 PM [facility] Pre/Post [id number] 20:29:23 Test Item Value Reference Range Interpretation Comments Ventricular rate (test code = 253) Atrial rate (test code = 255) CT interval (test code = 266) QRSD interval [...] Emery MD (2064) on 03/01/2022 3:29:18 PM [facility] Pre/Post [id number] 20:29:23 Test Item Value Reference Range Interpretation Comments Ventricular rate (test code = 253) Atrial rate (test code = 255) CT interval (test code = 266) QRSD interval [...] Emery MD (2064) on 03/01/2022 3:29:18 PM [facility] Pre/Post [id number] 20:29:23 Test Item Value Reference Range Interpretation Comments Ventricular rate (test code = 253) Atrial rate (test code = 255) CT interval (test code = 266) QRSD interval [...] Emery MD (2064) on 03/01/2022 3:29:18 PM [facility] Pre/Post [id number] 20:29:23 Test Item Value Reference Range Interpretation Comments Ventricular rate (test code = 253) Atrial rate (test code = 255) CT interval (test code = 266) QRSD interval [...] Emery MD (2064) on 03/01/2022 3:29:18 PM [facility] Pre/Post [id number] 20:29:23 Test Item Value Reference Range Interpretation Comments Ventricular rate (test code = 253) Atrial rate (test code = 255) CT interval (test code = 266) QRSD interval [...] Emery MD (2064) on 03/01/2022 3:29:18 PM [facility] Pre/Post [id number] 20:29:23 Test Item Value Reference Range Interpretation Comments Ventricular rate (test 84 code = 253) Atrial rate (test code = 84 255) CT interval (test code = 172 266) QRSD [...] Emery MD (2064) on 03/01/2022 3:29:18 PM [facility] Pre/Post [id number] 20:29:23 Test Item Value Reference Range Interpretation Comments Ventricular rate (test code = 253) Atrial rate (test code = 255) CT interval (test code = 266) QRSD interval [...] Emery MD (2064) on 03/01/2022 3:29:18 PM [facility] Pre/Post [id number] 20:29:23 Test Item Value Reference Range Interpretation Comments Ventricular rate (test 84 code = 253) Atrial rate (test code = 84 255) CT interval (test code = 172 266) QRSD [...] Emery MD (2064) on 03/01/2022 3:29:18 PM [id number] (COVID-19) RNA [Presence] in Respiratory specimen by TENZIN with probe [id number] 18:27:20 Test Item Value Reference Range Interpretation Comments SARS-CoV-2 (COVID-19) RNA Not detected [Presence] in Respiratory specimen by TENZIN with probe detection (test code = 88845-1) Whether patient is employed in a Unknown healthcare setting (test code = 44600-3) Whether the patient has symptoms Unknown related to condition of interest (test code = 31610-0) Whether the patient was Unknown hospitalized for condition of interest (test code = 55081-2) Whether the patient was admitted Unknown to intensive care unit (ICU) for condition of interest (test code = 94753-6) Whether patient resides in a Unknown congregate care setting (test code = 42485-9) status (test code = Unknown 65580-0) Date and time of symptom onset Unknown (test code = 17952-4) [facility] (COVID-19) RNA [Presence] in Respiratory specimen by TENZIN with probe [id number] 01:00:31 Test Item Value Reference Range Interpretation Comments SARS-CoV-2 (COVID-19) RNA Not detected [Presence] in Respiratory specimen by TENZIN with probe detection (test code = 80406-4) Whether patient is employed in a Unknown healthcare setting (test code = 12468-6) Whether the patient has symptoms Unknown related to condition of interest (test code = 77202-4) Whether the patient was Unknown hospitalized for condition of interest (test code = 77313-7) Whether the patient was admitted Unknown to intensive care unit (ICU) for condition of interest (test code = 63401-7) Whether patient resides in a Unknown congregate care setting (test code = 39493-2) status (test code = Unknown 52915-5) Date and time of symptom onset Unknown (test code = 34497-4) [facility] SARS CoV + SARS CoV 2 Ag panel, [place], upper respiratory [id number] 10:40:00 Test Item Value Reference Range Interpretation Comments RAPID SARS COV (test code = RAPID negative SARS COV) RAPID FLU A (test code = RAPID FLU negative A) RAPID FLU B (test code = RAPID FLU negative B) [facility] - Serum or [id number] 06:34:00 Test Item Value Reference Range Interpretation [...] ratio) [facility] A1c [Mass/volume] in [id number] 00:00:00 Test Item Value Reference Range Interpretation Comments Hemoglobin A1c [Mass/volume] in Blood 5.3 % 4.0-6.0 (test code = 29402-0) [facility] [Units/volume] in Serum or [id number] 00:00:00 Test Item Value Reference Range Interpretation Comments Thyrotropin [Units/volume] in 0.44 uIU/mL 0.36-3.74 Serum or Plasma (test code = 3016-3) [facility]
[2022-09-28] MEDS ORDERED: Phenylephrine HCl 10 MG/ML 1 ML VIAL ONE (15:38)
--- NOTE | 2022-09-28 16:29 | ER ---
Nurse's Notes [facility] Name: Francesco Avelar Age: 27 yrs Sex: Male : 1995 Arrival Date: 09/28/2022 Time: 14:59 Bed 18 Private MD: Diagnosis: Priapism, unspecified Presentation: 09/28 15:13 Chief complaint: Patient states: erection that has not subsided, has taken two vg1 terbutaline and no change. Coronavirus screen: Vaccine status: Patient reports receiving the 2nd dose of the covid vaccine. Client denies travel out of the [place] in the last 14 days. Ebola Screen: Patient negative for fever greater than or equal to 101.5 degrees Fahrenheit, and additional compatible Ebola Virus Disease symptoms Patient denies exposure to infectious person. Patient denies travel to an Ebola-affected area in the 21 days before illness onset. Initial Sepsis Screen: Does the patient meet any 2 criteria? No. Patient's initial sepsis screen is negative. Does the patient have a suspected source of infection? No. Patient's initial sepsis screen is negative. Risk Assessment: Do you want to hurt yourself or someone else? Patient reports no desire to harm self or others. Onset of symptoms was September 28, 2022. 15:13 Method Of Arrival: Ambulatory vg1 15:13 Acuity: MCKENZIE 3 vg1 Triage Assessment: 15:18 General: Appears uncomfortable, Behavior is calm, cooperative. Pain: Complains of pain vg1 in groin Pain currently is 4 out of 10 on a pain scale. GI: Reports. Historical: - Allergies: 15:18 Imitrex; vg1 - Home Meds: 15:18 terbutaline 2.5 mg Oral tab [Active]; vg1 - PMHx: 15:18 adhd; Asthma; Bipolar disorder; priapism; vg1 - PSHx: 15:18 L5 S1 laminectomy; vg1 - Immunization history:: Client reports receiving the 2nd dose of the Covid vaccine. - Social history:: Smoking status: Patient reports the use of cigarette tobacco products, smokes one-half pack cigarettes per day. Screenin:44 [facility] ED Fall Risk Assessment (Adult) History of falling in the last 3 months, db including since admission No falls in past 3 months (0 pts) Confusion or Disorientation No (0 pts) Intoxicated or Sedated No (0 pts) Impaired Gait No (0 pts) Mobility Assist Device Used No (0 pt) Altered Elimination No (0 pt) Score/Fall Risk Level 0 - 2 = Low Risk Oriented to surroundings, Maintained a safe environment. Abuse screen: Denies threats or abuse. Denies injuries from another. Nutritional screening: No deficits noted. Tuberculosis screening: No symptoms or risk factors identified. Assessment: 15:35 Reassessment: Patient appears in no apparent distress at this time. Patient and/or db family updated on plan of care and expected duration. Pain level reassessed. Patient is alert, oriented x 3, equal unlabored respirations, skin warm/dry/pink. General: Appears in no apparent distress. comfortable, Behavior is calm, cooperative. Neuro: No deficits noted. Level of Consciousness is awake, alert, obeys commands, Oriented to person, place, time, situation. 15:43 Reassessment: medication given to provider Mickail. db 16:53 Reassessment: Patient appears in no apparent distress at this time. Patient and/or db family updated on plan of care and expected duration. Pain level reassessed. Patient is alert, oriented x 3, equal unlabored respirations, skin warm/dry/pink. Patient states feeling better. Patient states symptoms have improved. Vital Signs: 15:13 BP 134 / 87; Pulse 99; Resp 16; Temp 98.2(O); Pulse Ox 100% on R/A; Weight 105.23 kg; vg1 Height 5 ft. 11 in. ; Pain 4/10; 16:52 BP 123 / 77; Pulse 97; Resp 18; Pulse Ox 99% on R/A; db 15:13 Body Mass Index 32.36 (105.23 kg, 180.34 cm) vg1 15:13 Pain Scale: Adult vg1 ED Course: 14:59 Patient arrived in ED. mr 15:04 Jose Wilkinson PA is PHCP. jmm 15:04 Landen Keane MD is Attending Physician. jmm 15:18 Triage completed. vg1 15:18 Arm band placed on. vg1 15:31 Sylvie Bass, SHELLEY is Primary Nurse. db 16:28 Minesh Vivas MD is Referral Physician. [facility] 16:52 No provider procedures requiring assistance completed. Patient did not have IV access db during this emergency room visit. 16:53 Patient has correct armband on for positive identification. Bed in low position. Call db light in reach. Side rails up X 1. Pulse ox on. NIBP on. Warm blanket given. Administered Medications: 15:58 Drug: Phenylephrine IV 0.04 mg/min {Note: administered by provider.} Route: IV; Rate: db calculated rate; Site: Other; 16:51 Follow up: Response: No adverse reaction; IV Status: Completed infusion; given by db provider Medication: 16:53 VIS not applicable for this client. db Intake: Outcome: 16:28 Discharge ordered by . claudia 16:52 Discharged to home ambulatory, with friend. db 16:52 Condition: stable 16:52 Discharge instructions given to patient, family, Instructed on discharge instructions, follow up and referral plans. 16:53 Patient left the ED. db Signatures: Jose Wilkinson PA PA jmm Rivera, Mary mr Garcia, Victoria, RN RN vg1 Sylvie Bass RN RN db
--- NOTE | 2022-09-28 16:29 | EDPHYS ---
Physician Documentation [facility] Name: Francesco Avelar Age: 27 yrs Sex: Male : 1995 Arrival Date: 09/28/2022 Time: 14:59 Bed 18 Private MD: ED Physician Landen Keane HPI: 09/28 15:15 This 27 yrs old Male presents to ER via Ambulatory with complaints of Penile jmm Problem. 15:15 The patient presents with swelling. Onset: The symptoms/episode began/occurred today. jmm This is a 27 year old male with a history of asthma and previous priapisms that presents to the ED with complaints of priapism with no relief in spite of taking home terbutaline. . Historical: - Allergies: 15:18 Imitrex; vg1 - Home Meds: 15:18 terbutaline 2.5 mg Oral tab [Active]; vg1 - PMHx: 15:18 adhd; Asthma; Bipolar disorder; priapism; vg1 - PSHx: 15:18 L5 S1 laminectomy; vg1 - Immunization history:: Client reports receiving the 2nd dose of the Covid vaccine. - Social history:: Smoking status: Patient reports the use of cigarette tobacco products, smokes one-half pack cigarettes per day. ROS: 15:15 Constitutional: Negative for fever, chills, and weight loss, Cardiovascular: Negative jmm for chest pain, palpitations, and edema, Respiratory: Negative for shortness of breath, cough, wheezing, and pleuritic chest pain. 15:15 : Positive for 15:15 All other systems are negative. Exam: 15:15 Constitutional: This is a well developed, well nourished patient who is awake, alert, jmm and in no acute distress. Head/Face: atraumatic. Eyes: EOMI, no conjunctival erythema appreciated ENT: Moist Mucus Membranes Neck: Trachea midline, Supple Chest/axilla: Normal chest wall appearance and motion. Cardiovascular: Regular rate and rhythm. No edema appreciated Respiratory: Normal respirations, no respiratory distress appreciated Abdomen/GI: Non distended Back: Normal ROM Skin: General appearance color normal 15:15 MS/ Extremity: Moves all extremities, no obvious deformities appreciated, no edema noted to the lower extremities Neuro: Awake and alert Psych: Behavior is normal, Mood is normal, Patient is cooperative and pleasant 15:15 : Male external genitalia: swelling: penile. Vital Signs: 15:13 BP 134 / 87; Pulse 99; Resp 16; Temp 98.2(O); Pulse Ox 100% on R/A; Weight 105.23 kg; vg1 Height 5 ft. 11 in. ; Pain 4/10; 16:52 BP 123 / 77; Pulse 97; Resp 18; Pulse Ox 99% on R/A; db 15:13 Body Mass Index 32.36 (105.23 kg, 180.34 cm) vg1 15:13 Pain Scale: Adult vg1 Procedures: 16:25 Performed Phenylephrine injection. 5 mg of 10 mg/mL of phenylephrine was diluted into jmm 10 cc of normal saline. 0.5 mL was injected at the 10 o'clock position at the base of the penis. Patient tolerated the procedure well. Upon reevaluation, priapism had resolved.. MDM: 15:15 Patient medically screened. [facility] 16:25 Differential diagnosis: priapism. Data reviewed: vital signs, nurses notes. I claudia considered the following discharge prescriptions or medication management in the emergency department Medications were administered in the Emergency Department. See MAR. Care significantly affected by the following chronic conditions: priapism. Counseling: I had a detailed discussion with the patient and/or guardian regarding: the historical points, exam findings, and any diagnostic results supporting the discharge/admit diagnosis, the need for outpatient follow up, to return to the emergency department if symptoms worsen or persist or if there are any questions or concerns that arise at home. Administered Medications: 15:58 Drug: Phenylephrine IV 0.04 mg/min {Note: administered by provider.} Route: IV; Rate: db calculated rate; Site: Other; 16:51 Follow up: Response: No adverse reaction; IV Status: Completed infusion; given by db provider Disposition: 17:48 Co-signature as Attending Physician, Landen Keane MD I reviewed the patient's care rn provided by the Advanced Practice Provider and agree with the diagnosis and treatment plan. Disposition Summary: 09/28/22 16:28 Discharge Ordered Location: Home [facility] Condition: Stable [facility] Diagnosis - Priapism, unspecified [facility] Followup: [facility] - With: Minesh Vivas MD - When: 2 - 3 days - Reason: Recheck today's complaints, Continuance of care, Re-evaluation by your physician Discharge Instructions: - Discharge Summary Sheet jmm - Priapism jmdavid Forms: - Medication Reconciliation Form jmdavid - Thank You Letter claudia - Antibiotic Education claudia - Prescription Opioid Use claudia Signatures: Jose Wilkinson PA PA jmm Nieto, Roman, MD MD rn Shayy Cash RN RN vg1 Sylvie Bass RN RN db
[2022-09-28 17:32] VITALS: TEMP 98.2
[2022-09-28 17:33] VITALS: BP 123/77; O2SAT 99
== END 2022-09-28 16:53 | disposition home or self-care (01) ==
LOC: ER 14:55
DX: N48.30 Priapism, unspecified (principal)
CPT/HCPCS: 96365; 99283; J2370

== ENCOUNTER 2022-11-06 11:23 | Emergency (ER) | payer BC, OTHER ==
--- OUTSIDE RECORDS SUMMARY | 2022-11-06 11:33 | XMS REPORT | Continuity of Care Document ---
:1995 Author Organization [facility] t Address [address] [place] [address] Support Name Relationship Address Phone BALA CLARK Unavailable [address] [phone] [place] [address] GREGORY DUMONT Unavailable [address] [phone] [place] [address] PRISCILA MAGANA MD Emergency Provider [address] [place] [address] PHYSICIAN, NO Primary Care Physician Unavailable Unavailab CLAIR Art Next of Kin [address] [place] [address] MD PRISCILA MAGANA Emergency Provider [address] [place] [address] MD [facility] Primary Care Physician [address] [place] [address] MD CELSA MUNGUIA Emergency Provider [address] [facility] [facility] [place] [address] MD BARBARA VELAZQUEZ Emergency Provider [address] [place] [address] MD SHI ANAYA Emergency Provider [address] [place] [address] DO ABRAHAM MCCRACKEN Admitting Provider [address] [place] [address] MD HARRISON RICO Emergency Provider [address] [place] [address] MD ALEXA TORRES Emergency Provider [address] [place] [address] MD JASON DUNAWAY Emergency Provider [address] [place] [address] [phone] [place] [address] Care Team Providers Name Role Phone Ronnell Diaz MD Primary Care Physician Ronnell Diaz Attending Clinician Unavailable NAHUN KHANNA Attending Clinician Unavailable MAYNOR ROMERO Attending Clinician Unavailable BRENDA MALDONADO Attending Clinician Unavailable Tatiana Xavier MA Attending Clinician Unavailable Maynor Romero MD Attending Clinician Rich Salgado Attending Clinician Neymar Barron Attending Clinician Unavailable Ronnell Diaz Attending Clinician Unavailable Zungracya_F Attending Clinician Unavailable JASON DUNAWAY Attending Clinician Unavailable SHI ANAYA Attending Clinician Unavailable Alexa Torres Attending Clinician Unavailable Chance Davis Attending Clinician Unavailable Gloria Attending Clinician Unavailable Apolinar ROSA, Mallory Attending Clinician Unavailable Eloina RICHARDSON, Alfreda Klein Attending Clinician Anna Leahy Attending Clinician Graeme SOUZA, Micaela Santa Attending Clinician Parish Chamorro MD Attending Clinician Basilio Diallo MD Attending Clinician JONA Attending Clinician Unavailable HARRISON RICO Attending Clinician Unavailable Berenice Attending Clinician Unavailable [...] Clinician Unavailable PARKER KENT Attending Clinician Unavailable SERGYE THAKKAR Attending Clinician Unavailable IRUKE, ZBIGNIEW O Attending Clinician Unavailable Zuniga_F Admitting Clinician Unavailable [...] Date S ource [place] [id number] 2014 (PPO) 00:00:00 [facility] [id number] 2019 [place] 00:00[place]00 ([place] [id number] [place] [facility] - [id number] [facility] ([facility]) Problems Condition Condition Condition Status Onset [...] Added automatic ally from request for surgery [id number] Priapism Priapism Disease Active Metho di 8-17 [...] Source Name Type Date Date Clinician Michelle Hudsonensi Active GI 2020-07 VOMITING Meth joanna porras ty to Intolerance 15 [address] adverse 00:00: Hospita reaction 00 l s to drug Imitrex Allergy Active [facility] sumatrip sumatrip Active Unknown Commo n porras porras [facility] Family History Family Member Diagnosis Comments Start Date Stop Date Source Natural father [facility] Natural mother Fibromyalgia [facility] Social History Social Habit Start Date Stop Date Quantity Comments Source Gender [facility] History of Tobacco Current Smoker Co mmon Spirit - Use [facility] Alcohol intake 2022-03-03 2022-03-03 Current drinker [facility] 00:00:00 00:00:00 of alcohol Hospital (finding) History of Social 2022-03-03 2022-03-[address] function 00:00:00 00:00:00 Hospital Tobacco use and 2022-03-01 2022-03-01 Smokeless [facility] exposure 00:00:00 00:00:00 tobacco non-user Hospital Alcohol Comment 2022-03-01 2022-03-01 EVERY OTHER Methodis t 00:00:00 00:00:00 [facility] Hospital Sex Assigned At [birth year] [facility] 00:00[facility]00 00:00:00 Hospital Smoking Status Start Date Stop Date Source Light Tobacco Smoker [facility] Current Smoker 2022-05-19 00:00:00 [facility] Medications Ordered Filled Start Stop [...] :00 instructio l mg tablet ns budesonide- 0 Yes 2{puff} Q.5D Inhale 2 [...] félix 10 by mouth l daily. levalbutero 202-0 Yes 2{puff} Q2D Inhale 2 Methodi l [...] day. l on inhaler acetamin[place] 2021- [place] [address] 1{tbl} Q6H Take 1 Methodi en-codeine 03-02 [...] up to 10 days .acute pain. acetaminoph 2022-0 1{tbl} Q6H Take 1 Methodi en-codeine 03-02 [...] up to 5 days .acute pain. traMADoL 35491 50mg Q6H Take 1 Metho di (ULTRAM) 50 8-19 08-25 tablet (50 s t mg tablet 00:00: 04:59 mg total) Ho spita 00 :00 by mouth l every 6 (six) hours as needed for moderate pain for up to 5 days .acute pain. traMADoL 79295 50mg Q6H Take 1 Metho di (ULTRAM) 50 8-19 08-25 tablet (50 s t mg tablet 00:00: 04:59 mg total) Ho spita 00 :00 by mouth l every 6 (six) hours as needed for moderate pain for up to 5 days .acute pain. traMADoL 37520 50mg Q6H Take 1 Metho di (ULTRAM) 50 8-19 08-25 tablet (50 s t mg tablet 00:00: 04:59 mg total) Ho spita 00 :00 by mouth l every 6 (six) hours as needed for moderate pain for up to 5 days .acute pain. traMADoL 15549 50mg Q6H Take 1 Metho di (ULTRAM) [...] up to 5 days .acute pain. traMADoL 75360 50mg Q6H Take 1 Metho di (ULTRAM) 50 8-19 08-25 tablet (50 s t mg tablet 00:00: 04:59 mg total) Ho spita 00 :00 by mouth l every 6 (six) hours as needed for moderate pain for up to 5 days .acute pain. traMADoL 57352 50mg Q6H Take 1 Metho di (ULTRAM) 50 8-19 08-25 tablet (50 s t mg tablet 00:00: 04:59 mg total) Ho spita 00 :00 by mouth l every 6 (six) hours as needed for moderate pain for up to 5 days .acute pain. traMADoL 42078 50mg Q6H Take 1 Metho di (ULTRAM) [...] up to 5 days .acute pain. traMADoL 01758 50mg Q6H Take 1 Metho di (ULTRAM) 50 8-19 08-25 tablet (50 s t mg tablet 00:00: 04:59 mg total) Ho spita 00 :00 by mouth l every 6 (six) hours as needed for moderate pain for up to 5 days .acute pain. traMADoL 2021- No [id number] 50mg Q6H Take 1 Metho di (ULTRAM) 50 8-19 08-25 tablet (50 s t mg tablet 00:00: 04:59 mg total) Ho spita 00 :00 by mouth l every 6 (six) hours as needed for moderate pain for up to 5 days .acute pain. traMADoL 2021-2021- [place] [id number] 50mg Q6H Take 1 Metho di (ULTRAM) 50 8-19 08-25 tablet (50 s t mg tablet 00:00: 04:59 mg total) Ho spita 00 :00 by mouth l every 6 (six) hours as needed for moderate pain for up to 5 days .acute pain. traMADoL 2021- No [id number] 50mg Q6H Take 1 Metho di (ULTRAM) 50 8-19 08-25 tablet (50 s t mg tablet 00:00: 04:59 mg total) Ho spita 00 :00 by mouth l every 6 (six) hours as needed for moderate pain for up to 5 days .acute pain. ibuprofen 0 2021- No 600mg Q6H Take [...] for up to 7 days. ibuprofen 0 202- No 600mg Q6H Take 1 Meth joanna [...] (Back pain) for up to 7 days. Abilify 2021- No INJECT ONE Met [facility]odi Maintena 11-2517 (1) UNIT [facility] 400 mg 00:00: 00:00 INTO THE Hospit a suspension, 00 :00 MUSCLE l extended ONCE A rel syring MONTH lify 2021- No INJECT ONE Met [facility]odi Maintena 11-2517 (1) UNIT st 400 mg 00:00: 00:00 INTO THE Hospit a suspension, 00 :00 MUSCLE l extended ONCE A rel syring MONTH lify 2021- No INJECT ONE Met [facility] Maintena 11-25 (1) UNIT st 400 mg 00:00: [...] extended ONCE A rel syring MONTH Abilify 2021- No INJECT ONE Met [facility]odi Maintena 5-18 08-17 (1) UNIT st 400 mg 00:00: 00:00 INTO THE Hospit a suspension, 00 :00 MUSCLE l extended ONCE A rel syring MONTH Abilify 2021- No INJECT ONE Met hodi Maintena [...] Date Status Commen ts Source Name Name [facility] COVID-19 MRNA 2020-10-16 Completed Meth odist VACCINATION 00:00:00 [facility] PFIZER COVID-19 MRNA 2020-10-16 Completed Meth odist VACCINATION 00:00:00 [facility] COVID-19 MRNA 2020-10-16 Completed Meth odist VACCINATION 00:00:00 [facility] COVID-19 MRNA 2020-10-16 Completed Meth odist VACCINATION 00:00:00 [facility] COVID-19 MRNA 2020-10-16 Completed Meth odist VACCINATION 00:00:00 [facility] PFIZER COVID-19 MRNA 2020-10-16 Completed Meth odist VACCINATION 00:00:00 [facility] COVID-19 MRNA 2020-10-16 Completed Meth odist VACCINATION 00:00:00 [facility] COVID-19 MRNA 2020-10-16 Completed Meth odist VACCINATION 00:00:00 [facility] COVID-19 MRNA 2020-10-16 Completed Meth odist VACCINATION 00:00:00 [facility] COVID-19 MRNA 2020-10-16 Completed Meth odist VACCINATION 00:00:00 [facility] COVID-19 MRNA 2020-10-16 Completed Meth odist VACCINATION 00:00:00 [facility] PFIZER COVID-19 MRNA 2020-10-16 Completed Meth odist VACCINATION 00:00:00 [facility] PFIZER COVID-19 MRNA 2020-10-16 Completed Meth odist VACCINATION 00:00:00 [facility] COVID-19 MRNA 2020-10-16 Completed Meth odist VACCINATION 00:00:00 [facility] COVID-19 MRNA 2020-10-16 Completed Meth odist VACCINATION 00:00:00 [facility] COVID-19 MRNA 2020-10-16 Completed Meth odist VACCINATION 00:00:00 [facility] PFIZER COVID-19 MRNA 2020-10-16 Completed Meth odist VACCINATION 00:00:00 [facility] PFIZER COVID-19 MRNA 2020-10-16 Completed Meth odist VACCINATION 00:00:00 [facility] PFIZER COVID-19 MRNA 2020-10-16 Completed Meth odist VACCINATION 00:00:00 [facility] PFIZER COVID-19 MRNA 2020-10-16 Completed Meth odist VACCINATION 00:00:00 [facility] PFIZER COVID-19 MRNA 2020-10-16 Completed Meth odist VACCINATION 00:00:00 [facility] PFIZER COVID-19 MRNA 2020-10-16 Completed Meth odist VACCINATION 00:00:00 [facility] PFIZER COVID-19 MRNA 2020-10-16 Completed Meth odist VACCINATION 00:00:00 [facility] PFIZER COVID-19 MRNA 2020-10-16 Completed Meth odist VACCINATION 00:00:00 [facility] PFIZER COVID-19 MRNA 2020-10-16 Completed Meth odist VACCINATION 00:00:00 [facility] PFIZER COVID-19 MRNA 2020-10-16 Completed Meth odist VACCINATION 00:00:00 [facility] PFIZER COVID-19 MRNA 2020-10-16 Completed Meth odist VACCINATION 00:00:00 [facility] PFIZER COVID-19 MRNA 2020-09-25 Completed Meth odist VACCINATION 00:00:00 [facility] PFIZER COVID-19 MRNA 2020-09-25 Completed Meth odist VACCINATION 00:00:00 [facility] PFIZER COVID-19 MRNA 2020-09-25 Completed Meth odist VACCINATION 00:00:00 [facility] PFIZER COVID-19 MRNA 2020-09-25 Completed Meth odist VACCINATION 00:00:00 [facility] PFIZER COVID-19 MRNA 2020-09-25 Completed Meth odist VACCINATION 00:00:00 [facility] PFIZER COVID-19 MRNA 2020-09-25 Completed [facility] odist VACCINATION 00:00:00 [facility] PFIZER COVID-19 MRNA 2020-09-25 Completed Meth odist VACCINATION 00:00:00 [facility] PFIZER COVID-19 MRNA 2020-09-25 Completed Meth odist VACCINATION 00:00:00 [facility] PFIZER COVID-19 MRNA 2020-09-25 Completed Meth odist VACCINATION 00:00:00 [facility] PFIZER COVID-19 MRNA 2020-09-25 Completed Meth odist VACCINATION 00:00:00 [facility] PFIZER COVID-19 MRNA 2020-09-25 Completed Meth odist VACCINATION 00:00:00 [facility] PFIZER COVID-19 MRNA 2020-09-25 Completed Meth odist VACCINATION 00:00:00 [facility] PFIZER COVID-19 MRNA 2020-09-25 Completed Meth odist VACCINATION 00:00:00 [facility] PFIZER COVID-19 MRNA 2020-09-25 Completed Meth odist VACCINATION 00:00:00 [facility] PFIZER COVID-19 MRNA 2020-09-25 Completed Meth odist VACCINATION 00:00:00 [facility] PFIZER COVID-19 MRNA 2020-09-25 Completed Meth odist VACCINATION 00:00:00 [facility] PFIZER COVID-19 MRNA 2020-09-25 Completed Meth odist VACCINATION 00:00:00 [facility] PFIZER COVID-19 MRNA 2020-09-25 Completed Meth odist VACCINATION 00:00:00 [facility] PFIZER COVID-19 MRNA 2020-09-25 Completed Meth odist VACCINATION 00:00:00 [facility] PFIZER COVID-19 MRNA 2020-09-25 Completed Meth odist VACCINATION 00:00:00 [facility] PFIZER COVID-19 MRNA 2020-09-25 Completed Meth odist VACCINATION 00:00:00 [facility] PFIZER COVID-19 MRNA 2020-09-25 Completed Meth odist VACCINATION 00:00:00 [facility] PFIZER COVID-19 MRNA 2020-09-25 Completed Meth odist VACCINATION 00:00:00 [facility] PFIZER COVID-19 MRNA 2020-09-25 Completed Meth odist VACCINATION 00:00:00 [facility] PFIZER COVID-19 MRNA 2020-09-25 Completed Meth odist VACCINATION 00:00:00 [facility] PFIZER COVID-19 MRNA 2020-09-25 Completed [facility] odist VACCINATION 00:00:00 [facility] PFIZER COVID-19 MRNA 2020-09-25 Completed [facility] odist VACCINATION 00:00:00 Hospital Vital Signs Vital Name Observation Time Observation Value Comments Source BP Diastolic 2022-06-25 00:00:00 84 mm[Hg] [facility] Height 2022-06-25 00:00:00 71 [in_i] [facility] BMI (Body Mass 2022-06-25 00:00:00 33.5 kg/m2 [facility] Medical Index) Group BP Systolic 2022-06-25 00:00:00 133 mm[Hg] [facility] Body Weight 2022-06-25 00:00:00 3848 [oz_av] [facility] BP Diastolic 2022-06-21 00:00:00 73 mm[Hg] [facility] Height 2022-06-21 00:00:00 71 [in_i] [facility] BMI (Body Mass 2022-06-21 00:00:00 34.4 kg/m2 [facility] 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 BP Systolic 2022-06-21 00:00:00 112 mm[Hg] [facility] Body Weight 2022-06-21 00:00:00 3942 [oz_av] [facility] height 2022-05-19 10:30:00 71 [in_i] [facility] weight 2022-05-19 10:30:00 254.6 [lb_av] [facility] temperature 2022-05-19 10:30:00 97.6 [degF] [facility] bmi 2022-05-19 10:30:00 35.51 kg/m2 [facility] oximetry 2022-05-19 10:30:00 98 % [facility] respiratory rate 2022-05-19 10:30:00 18 /min [facility] on [facility] blood pressure 2022-05-19 10:30:00 35 mm[Hg] [facility] - systolic [facility] blood pressure 2022-05-19 10:30:00 78 mm[Hg] [facility] - diastolic [facility] BP Diastolic 2022-03-09 00:00:00 77 mm[Hg] [facility] Height 2022-03-09 00:00:00 71 [in_i] [facility] BMI (Body Mass 2022-03-09 00:00:00 35.6 kg/m2 [facility] 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 BP Systolic 2022-03-09 00:00:00 122 mm[Hg] [facility] Body Weight 2022-03-09 00:00:00 4078.4 [oz_av] [facility] BP Diastolic 2021-11-06 00:00:00 83 mm[Hg] [facility] Height 2021-11-06 00:00:00 71 [in_i] [facility] BMI (Body Mass 2021-11-06 00:00:00 35 kg/m2 [facility] Medical Index) Group BP Systolic 2021-11-06 00:00:00 127 mm[Hg] [facility] Body Weight 2021-11-06 00:00:00 4020 [oz_av] [facility] Height 2021-09-14 00:00:00 71 [in_i] [facility] BMI (Body Mass 2021-09-14 00:00:00 34.6 kg/m2 [facility] Medical Index) Group Body Weight 2021-09-14 00:00:00 3968 [oz_av] [facility] BP Diastolic 2021-03-26 00:00:00 75 mm[Hg] [facility] Height 2021-03-26 00:00:00 71 [in_i] [facility] BMI (Body Mass 2021-03-26 00:00:00 31.1 kg/m2 [facility] Medical Index) Group BP Systolic 2021-03-26 00:00:00 118 mm[Hg] [facility] Body Weight 2021-03-26 00:00:00 3569 [oz_av] [facility] BP Diastolic 2021-03-10 00:00:00 69 mm[Hg] [facility] Height 2021-03-10 00:00:00 71 [in_i] [facility] BMI (Body Mass 2021-03-10 00:00:00 30.8 kg/m2 [facility] Medical Index) Group BP Systolic 2021-03-10 00:00:00 111 mm[Hg] [facility] Body Weight 2021-03-10 00:00:00 3529 [oz_av] [facility] BP Diastolic 2021-01-02 00:00:00 63 mm[Hg] [facility] Height 2021-01-02 00:00:00 71 [in_i] [facility] BMI (Body Mass 2021-01-02 00:00:00 30.3 kg/m2 [facility] BP Systolic 2021-01-02 00:00:00 112 mm[Hg] [facility] Body Weight 2021-01-02 00:00:00 3481 [oz_av] [facility] BP Diastolic 2020-07-15 00:00:00 71 mm[Hg] [facility] Height 2020-07-15 00:00:00 71 [in_i] [facility] BMI (Body Mass 2020-07-15 00:00:00 29.7 kg/m2 [facility] 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 BP Systolic 2020-07-15 00:00:00 117 mm[Hg] [facility] Body Weight 2020-07-15 00:00:00 213 [lb_av] [facility] BP Diastolic 2020-07-14 00:00:00 71 mm[Hg] [facility] Height 2020-07-14 00:00:00 71 [in_i] [facility] BMI (Body Mass 2020-07-14 00:00:00 29.7 kg/m2 [facility] 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 BP Systolic 2020-07-14 00:00:00 117 mm[Hg] [facility] Body Weight 2020-07-14 00:00:00 3411 [oz_av] [facility] Height 2020-01-30 00:00:00 71 [in_i] [facility] BMI (Body Mass 2020-01-30 00:00:00 30 kg/m2 [facility] Body Weight 2020-01-30 00:00:00 3440 [oz_av] [facility] Systolic blood 2022-03-02 15:38:00 114 mm[Hg] [facility] pressure Diastolic blood 2022-03-02 15:38:00 67 mm[Hg] [facility] pressure Heart rate 2022-03-02 15:38:00 63 /min [facility] Respiratory rate 2022-03-02 15:38:00 16 /min [facility] Oxygen saturation in 2022-03-02 15:38:00 97 /min [facility] Arterial blood by Pulse oximetry Body temperature 2022-03-02 15:30:00 36.33 Elle [facility] Body height 2022-03-01 15:26:00 180.3 cm [facility] Body weight 2022-03-01 15:26:00 115.123 kg [facility] BMI 2022-03-01 15:26:00 35.40 kg/m2 [facility] Procedures Procedure Date / Time Performing Clinician Source Performed US, duplex, penis, 2022-03-09 00:00:00 [facility] complete Group OR [place] < 1 HOUR 2022-03-02 18:31:17 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 2022-03-02 13:31:57 Alfreda Duvall [facility] SPINAE [place] AN ELECTIVE 2022-03-02 12:35:00 Mason Douglas [facility] ENDOTRACHEAL AIRWAY LAMINECTOMY, LUMBAR 2022-03-02 12:29:00 Maynor Romero [facility] POC GLUCOSE 2022-03-02 11:43:00 Maynor Romero ospital Back Surgery 2022-03-02 00:00:00 [facility] dical [facility] XR CHEST 2 VW 2022-03-01 17:28:02 [facility] PRE/POST OP 2022-03-01 16:38:21 [facility] HEMOGLOBIN A1C 2022-03-01 16:18:[address] [facility] COVID-19 QUALITATIVE 2022-03-01 15:48:[address] [facility] RT-PCR CBC WITH PLATELET AND 2022-03-01 15:48:00 Maynor Romero [facility] DIFFERENTIAL PARTIAL THROMBOPLASTIN 2022-03-01 15:48:00 Maynor Romero [facility] TIME (PTT) PROTHROMBIN TIME WITH INR 2022-03-01 15:48:00 Maynor Romero [facility] CT POST MYELOGRAM LUMBAR 2022-02-25 18:14:57 [place] [facility] IR MYELOGRAM LUMB INCL 2022-02-25 17:55:00 Dejah [facility] INJ W S&I COVID-19 QUALITATIVE 2022-02-24 22:40:00 [facility] RT-PCR COMPREHENSIVE METABOLIC 2022-02-24 22:40:00 [facility] PAN[facility] CBC WITH PLATELET AND 2022-02-24 22:40:00 [facility] DIFFERENTIAL TROPONIN T 2022-02-24 22:40:00 [facility] B NATRIURETIC PEPTIDE 2022-02-24 22:40:00 [facility] ESTIMATED GFR 2022-02-24 22:40:00 [facility] GENERAL 2022-02-24 22:27:14 [facility] SPINE EXTERNAL STUDY 2022-02-12 16:40:33 Maynor Romero [facility] XR ABDOMEN 2 VW AP W 2021-12-18 16:48:33 [facility] UPRIGHT AND/OR DECUBITUS XR LUMBAR SPINE COMPLETE 2021-12-18 15:33:23 Maynor Romero [facility] W BENDING XR SPINE EXTERNAL STUDY 2021-08-10 17:26:30 Maynor Romero [facility] XR, lumbar spine 2021-03-10 00:00:00 [facility] Plan of Care Planned Activity Planned Date Details Comments Source Future Scheduled Test 2022-10-26 COVID-19 VACCINE (3 - [facility] 12:10:59 Booster for Pfizer series) [code = COVID-19 VACCINE (3 - Booster for Pfizer series)] Future Scheduled Test 2022-10-26 INFLUENZA VACCINE [facility] 12:10:59 [code = INFLUENZA VACCINE] Future Scheduled Test 2022-10-26 Pneumococcal Vaccine: [facility] 12:10:59 Pediatrics (0 to 5 Years) and At-Risk Patients (6 to 64 Years) (1 - PCV) [code = Pneumococcal Vaccine: Pediatrics (0 to 5 Years) and At-Risk Patients (6 to 64 Years) (1 - PCV)] Future Scheduled Test 2022-10-26 Hepatitis C screening [facility] 12:10:59 (procedure) [code = 800196956] Future Scheduled Test 2022-10-26 Pneumococcal Vaccine: [facility] 12:10:59 Pediatrics (0 to 5 Years) and At-Risk Patients (6 to 64 Years) (1 - PCV) [code = Pneumococcal Vaccine: Pediatrics (0 to 5 Years) and At-Risk Patients (6 to 64 Years) (1 - PCV)] Future Scheduled Test 2022-10-26 Hepatitis C screening [facility] 12:10:59 (procedure) [code = [id number]] Future Scheduled Test 2022-10-26 COVID-19 VACCINE ([address] [place] [address] 12:10:59 Booster for Pfizer series) [code = COVID-19 VACCINE (3 - Booster for Pfizer series)] Future Scheduled Test 2022-10-26 INFLUENZA VACCINE [facility] 12:10:59 [code = INFLUENZA VACCINE] Future Scheduled Test 2022-10-26 Pneumococcal Vaccine: [facility] 12:10:59 Pediatrics (0 to 5 Years) and At-Risk Patients (6 to 64 Years) (1 - PCV) [code = Pneumococcal Vaccine: Pediatrics (0 to 5 Years) and At-Risk Patients (6 to 64 Years) (1 - PCV)] Future Scheduled Test 2022-10-26 Hepatitis C screening [facility] 12:10:59 (procedure) [code = [id number]] Future Scheduled Test 2022-10-26 COVID-19 VACCINE ([address] [place] [address] 12:10:59 Booster for Pfizer series) [code = COVID-19 VACCINE (3 - Booster for Pfizer series)] Future Scheduled Test 2022-10-26 INFLUENZA VACCINE [facility] 12:10:59 [code = INFLUENZA VACCINE] Future Scheduled Test 2022-10-12 Pneumococcal Vaccine: [facility] 03:52:45 Pediatrics (0 to 5 Years) and At-Risk Patients (6 to 64 Years) (1 - PCV) [code = Pneumococcal Vaccine: Pediatrics (0 to 5 Years) and At-Risk Patients (6 to 64 Years) (1 - PCV)] Future Scheduled Test 2022-10-12 Hepatitis C screening [facility] 03:52:45 (procedure) [code = [id number]] Future Scheduled Test 2022-10-12 COVID-19 VACCINE ([address] [place] [address] 03:52:45 Booster for Pfizer series) [code = COVID-19 VACCINE (3 - Booster for Pfizer series)] Future Scheduled Test 2022-10-12 INFLUENZA VACCINE [facility] 03:52:45 [code = INFLUENZA VACCINE] Future Scheduled Test 2022-10-12 Pneumococcal Vaccine: [facility] 03:52:45 Pediatrics (0 to 5 Years) and At-Risk Patients (6 to 64 Years) (1 - PCV) [code = Pneumococcal Vaccine: Pediatrics (0 to 5 Years) and At-Risk Patients (6 to 64 Years) (1 - PCV)] Future Scheduled Test 2022-10-12 Hepatitis C screening [facility] 03:52:45 (procedure) [code = [id number]] Future Scheduled Test 2022-10-12 COVID-19 VACCINE ([address] [place] [address] 03:52:45 Booster for Pfizer series) [code = COVID-19 VACCINE (3 - Booster for Pfizer series)] Future Scheduled Test 2022-10-12 INFLUENZA VACCINE [facility] 03:52:45 [code = INFLUENZA VACCINE] Future Scheduled Test 2022-10-12 Pneumococcal Vaccine: [facility] 03:52:45 Pediatrics (0 to 5 Years) and At-Risk Patients (6 to 64 Years) (1 - PCV) [code = Pneumococcal Vaccine: Pediatrics (0 to 5 Years) and At-Risk Patients (6 to 64 Years) (1 - PCV)] Future Scheduled Test 2022-10-12 Hepatitis C screening [facility] 03:52:45 (procedure) [code = [id number]] Future Scheduled Test 2022-10-12 COVID-19 VACCINE ([address] [place] [address] 03:52:45 Booster for Pfizer series) [code = COVID-19 VACCINE (3 - Booster for Pfizer series)] Future Scheduled Test 2022-10-12 INFLUENZA VACCINE [facility] 03:52:45 [code = INFLUENZA VACCINE] Future Scheduled Test 2022-09-07 Pneumococcal Vaccine: [facility] 19:21:49 Pediatrics (0 to 5 Years) and At-Risk Patients (6 to 64 Years) (1 - PCV) [code = Pneumococcal Vaccine: Pediatrics (0 to 5 Years) and At-Risk Patients (6 to 64 Years) (1 - PCV)] Future Scheduled Test 2022-09-07 Hepatitis C screening [facility] 19:21:49 (procedure) [code = [id number]] Future Scheduled Test 2022-09-07 COVID-19 VACCINE ([address] [place] [address] 19:21:49 Booster for Pfizer series) [code = COVID-19 VACCINE (3 - Booster for Pfizer series)] Future Scheduled Test 2022-09-07 INFLUENZA VACCINE [facility] 19:21:49 [code = INFLUENZA VACCINE] Future Scheduled Test 2022-09-07 Pneumococcal Vaccine: [facility] 19:21:49 Pediatrics (0 to 5 Years) and At-Risk Patients (6 to 64 Years) (1 - PCV) [code = Pneumococcal Vaccine: Pediatrics (0 to 5 Years) and At-Risk Patients (6 to 64 Years) (1 - PCV)] Future Scheduled Test 2022-09-07 Hepatitis C screening [facility] 19:21:49 (procedure) [code = [id number]] Future Scheduled Test 2022-09-07 COVID-19 VACCINE ([address] [place] [address] 19:21:49 Booster for Pfizer series) [code = COVID-19 VACCINE (3 - Booster for Pfizer series)] Future Scheduled Test 2022-09-07 INFLUENZA VACCINE [facility] 19:21:49 [code = INFLUENZA VACCINE] Future Scheduled Test 2022-09-07 Pneumococcal Vaccine: [facility] 19:21:49 Pediatrics (0 to 5 Years) and At-Risk Patients (6 to 64 Years) (1 - PCV) [code = Pneumococcal Vaccine: Pediatrics (0 to 5 Years) and At-Risk Patients (6 to 64 Years) (1 - PCV)] Future Scheduled Test 2022-09-07 Hepatitis C screening [facility] 19:21:49 (procedure) [code = [id number]] Future Scheduled Test 2022-09-07 COVID-19 VACCINE ([address] [place] [address] 19:21:49 Booster for Pfizer series) [code = COVID-19 VACCINE (3 - Booster for Pfizer series)] Future Scheduled Test 2022-09-07 INFLUENZA VACCINE [facility] 19:21:49 [code = INFLUENZA VACCINE] Future Scheduled Test 2022-09-07 Pneumococcal Vaccine: [facility] 19:21:49 Pediatrics (0 to 5 Years) and At-Risk Patients (6 to 64 Years) (1 - PCV) [code = Pneumococcal Vaccine: Pediatrics (0 to 5 Years) and At-Risk Patients (6 to 64 Years) (1 - PCV)] Future Scheduled Test 2022-09-07 Hepatitis C screening [facility] 19:21:49 (procedure) [code = [id number]] Future Scheduled Test 2022-09-07 COVID-19 VACCINE ([address] [place] [address] 19:21:49 Booster for Pfizer series) [code = COVID-19 VACCINE (3 - Booster for Pfizer series)] Future Scheduled Test 2022-09-07 INFLUENZA VACCINE [facility] 19:21:49 [code = INFLUENZA VACCINE] Future Scheduled Test 2022-06-26 Pneumococcal Vaccine: [facility] 18:09:46 Pediatrics (0 to 5 Years) and At-Risk Patients (6 to 64 Years) (1 - PCV) [code = Pneumococcal Vaccine: Pediatrics (0 to 5 Years) and At-Risk Patients (6 to 64 Years) (1 - PCV)] Future Scheduled Test 2022-06-26 Hepatitis C screening [facility] 18:09:46 (procedure) [code = [id number]] Future Scheduled Test 2022-06-26 COVID-19 VACCINE ([address] [place] [address] 18:09:46 Booster for Pfizer series) [code = COVID-19 VACCINE (3 - Booster for Pfizer series)] Future Scheduled Test 2022-06-26 INFLUENZA VACCINE [facility] 18:09:46 [code = INFLUENZA VACCINE] Future Scheduled Test 2022-06-26 Pneumococcal Vaccine: [facility] 18:09:46 Pediatrics (0 to 5 Years) and At-Risk Patients (6 to 64 Years) (1 - PCV) [code = Pneumococcal Vaccine: Pediatrics (0 to 5 Years) and At-Risk Patients (6 to 64 Years) (1 - PCV)] Future Scheduled Test 2022-06-26 Hepatitis C screening [facility] 18:09:46 (procedure) [code = [id number]] Future Scheduled Test 2022-06-26 COVID-19 VACCINE ([address] [place] [address] 18:09:46 Booster for Pfizer series) [code = COVID-19 VACCINE (3 - Booster for Pfizer series)] Future Scheduled Test 2022-06-26 INFLUENZA VACCINE [facility] 18:09:46 [code = INFLUENZA VACCINE] Diagnostic Test [...] plasma] Future Scheduled Test 2022-05-20 Pneumococcal Vaccine: [facility] 09:23:23 Pediatrics (0 to 5 Years) and At-Risk Patients (6 to 64 Years) (1 - PCV) [code = Pneumococcal Vaccine: Pediatrics (0 to 5 Years) and At-Risk Patients (6 to 64 Years) (1 - PCV)] Future Scheduled Test 2022-05-20 Hepatitis C screening [facility] 09:23:23 (procedure) [code = [id number]] Future Scheduled Test 2022-05-20 COVID-19 VACCINE ([address] [place] [address] 09:23:23 Booster for Pfizer series) [code = COVID-19 VACCINE (3 - Booster for Pfizer series)] Future Scheduled Test 2022-05-20 INFLUENZA VACCINE [facility] 09:23:23 [code = INFLUENZA VACCINE] Future Scheduled Test 2022-05-20 Pneumococcal Vaccine: [facility] 09:23:23 Pediatrics (0 to 5 Years) and At-Risk Patients (6 to 64 Years) (1 - PCV) [code = Pneumococcal Vaccine: Pediatrics (0 to 5 Years) and At-Risk Patients (6 to 64 Years) (1 - PCV)] Future Scheduled Test 2022-05-20 Hepatitis C screening [facility] 09:23:23 (procedure) [code = [id number]] Future Scheduled Test 2022-05-20 COVID-19 VACCINE ([address] [place] [address] 09:23:23 Booster for Pfizer series) [code = COVID-19 VACCINE (3 - Booster for Pfizer series)] Future Scheduled Test 2022-05-20 INFLUENZA VACCINE [facility] 09:23:23 [code = INFLUENZA VACCINE] Future Scheduled Test 2022-05-20 Pneumococcal Vaccine: [facility] 09:23:23 Pediatrics (0 to 5 Years) and At-Risk Patients (6 to 64 Years) (1 - PCV) [code = Pneumococcal Vaccine: Pediatrics (0 to 5 Years) and At-Risk Patients (6 to 64 Years) (1 - PCV)] Future Scheduled Test 2022-05-20 Hepatitis C screening [facility] 09:23:23 (procedure) [code = [id number]] Future Scheduled Test 2022-05-20 COVID-19 VACCINE ([address] [place] [address] 09:23:23 Booster for Pfizer series) [code = COVID-19 VACCINE (3 - Booster for Pfizer series)] Future Scheduled Test 2022-05-20 INFLUENZA VACCINE [facility] 09:23:23 [code = INFLUENZA VACCINE] Future Scheduled Test 2022-05-20 Pneumococcal Vaccine: [facility] 09:23:23 Pediatrics (0 to 5 Years) and At-Risk Patients (6 to 64 Years) (1 - PCV) [code = Pneumococcal Vaccine: Pediatrics (0 to 5 Years) and At-Risk Patients (6 to 64 Years) (1 - PCV)] Future Scheduled Test 2022-05-20 Hepatitis C screening [facility] 09:23:23 (procedure) [code = [id number]] Future Scheduled Test 2022-05-20 COVID-19 VACCINE ([address] [place] [address] 09:23:23 Booster for Pfizer series) [code = COVID-19 VACCINE (3 - Booster for Pfizer series)] Future Scheduled Test 2022-05-20 INFLUENZA VACCINE [facility] 09:23:23 [code = INFLUENZA VACCINE] Future Scheduled Test 2022-05-20 Pneumococcal Vaccine: [facility] 09:23:23 Pediatrics (0 to 5 Years) and At-Risk Patients (6 to 64 Years) (1 - PCV) [code = Pneumococcal Vaccine: Pediatrics (0 to 5 Years) and At-Risk Patients (6 to 64 Years) (1 - PCV)] Future Scheduled Test 2022-05-20 Hepatitis C screening [facility] 09:23:23 (procedure) [code = [id number]] Future Scheduled Test 2022-05-20 COVID-19 VACCINE ([address] [place] [address] 09:23:23 Booster for Pfizer series) [code = COVID-19 VACCINE (3 - Booster for Pfizer series)] Future Scheduled Test 2022-05-20 INFLUENZA VACCINE [facility] 09:23:23 [code = INFLUENZA VACCINE] Future Scheduled Test 2022-05-20 Pneumococcal Vaccine: [facility] 09:23:23 Pediatrics (0 to 5 Years) and At-Risk Patients (6 to 64 Years) (1 - PCV) [code = Pneumococcal Vaccine: Pediatrics (0 to 5 Years) and At-Risk Patients (6 to 64 Years) (1 - PCV)] Future Scheduled Test 2022-05-20 Hepatitis C screening [facility] 09:23:23 (procedure) [code = [id number]] Future Scheduled Test 2022-05-20 COVID-19 VACCINE ([address] [place] [address] 09:23:23 Booster for Pfizer series) [code = COVID-19 VACCINE (3 - Booster for Pfizer series)] Future Scheduled Test 2022-05-20 INFLUENZA VACCINE [facility] 09:23:23 [code = INFLUENZA VACCINE] Future Scheduled Test 2022-05-11 Pneumococcal Vaccine: [facility] 07:01:06 Pediatrics (0 to 5 Years) and At-Risk Patients (6 to 64 Years) (1 - PCV) [code = Pneumococcal Vaccine: Pediatrics (0 to 5 Years) and At-Risk Patients (6 to 64 Years) (1 - PCV)] Future Scheduled Test 2022-05-11 Hepatitis C screening [facility] 07:01:06 (procedure) [code = [id number]] Future Scheduled Test 2022-05-11 COVID-19 VACCINE ([address] [place] [address] 07:01:06 Booster for Pfizer series) [code = COVID-19 VACCINE (3 - Booster for Pfizer series)] Future Scheduled Test 2022-05-11 INFLUENZA VACCINE [facility] 07:01:06 [code = INFLUENZA VACCINE] Future Scheduled Test 2022-05-11 Pneumococcal Vaccine: [facility] 07:01:06 Pediatrics (0 to 5 Years) and At-Risk Patients (6 to 64 Years) (1 - PCV) [code = Pneumococcal Vaccine: Pediatrics (0 to 5 Years) and At-Risk Patients (6 to 64 Years) (1 - PCV)] Future Scheduled Test 2022-05-11 Hepatitis C screening [facility] 07:01:06 (procedure) [code = [id number]] Future Scheduled Test 2022-05-11 COVID-19 VACCINE ([address] [place] [address] 07:01:06 Booster for Pfizer series) [code = COVID-19 VACCINE (3 - Booster for Pfizer series)] Future Scheduled Test 2022-05-11 INFLUENZA VACCINE [facility] 07:01:06 [code = INFLUENZA VACCINE] Future Scheduled Test 2022-04-23 Pneumococcal Vaccine: [facility] 15:05:55 Pediatrics (0 to 5 Years) and At-Risk Patients (6 to 64 Years) (1 - PCV) [code = Pneumococcal Vaccine: Pediatrics (0 to 5 Years) and At-Risk Patients (6 to 64 Years) (1 - PCV)] Future Scheduled Test 2022-04-23 Hepatitis C screening [facility] 15:05:55 (procedure) [code = [id number]] Future Scheduled Test 2022-04-23 COVID-19 VACCINE ([address] [place] [address] 15:05:55 Booster for Pfizer series) [code = COVID-19 VACCINE (3 - Booster for Pfizer series)] Future Scheduled Test 2022-04-23 INFLUENZA VACCINE [facility] 15:05:55 [code = INFLUENZA VACCINE] Future Scheduled Test 2022-03-19 Pneumococcal Vaccine: [facility] 14:05:17 Pediatrics (0 to 5 Years) and At-Risk Patients (6 to 64 Years) (1 - PCV) [code = Pneumococcal Vaccine: Pediatrics (0 to 5 Years) and At-Risk Patients (6 to 64 Years) (1 - PCV)] Future Scheduled Test 2022-03-19 Hepatitis C screening [facility] 14:05:17 (procedure) [code = 904032432] Future Scheduled Test 2022-03-19 COVID-19 VACCINE ([address] [place] [address] 14:05:17 Booster for Pfizer series) [code = COVID-19 VACCINE (3 - Booster for Pfizer series)] Future Scheduled Test 2022-03-19 INFLUENZA VACCINE [facility] 14:05:17 [code = INFLUENZA VACCINE] Future Scheduled Test 2022-03-19 Pneumococcal Vaccine: [facility] 14:05:17 Pediatrics (0 to 5 Years) and At-Risk Patients (6 to 64 Years) (1 - PCV) [code = Pneumococcal Vaccine: Pediatrics (0 to 5 Years) and At-Risk Patients (6 to 64 Years) (1 - PCV)] Future Scheduled Test 2022-03-19 Hepatitis C screening [facility] 14:05:17 (procedure) [code = 373985183] Future Scheduled Test 2022-03-19 COVID-19 VACCINE ([address] [place] [address] 14:05:17 Booster for Pfizer series) [code = COVID-19 VACCINE (3 - Booster for Pfizer series)] Future Scheduled Test 2022-03-19 INFLUENZA VACCINE [facility] 14:05:17 [code = INFLUENZA VACCINE] Future Scheduled Test 2022-03-06 Pneumococcal Vaccine: [facility] 19:05:17 Pediatrics (0 to 5 Years) and At-Risk Patients (6 to 64 Years) (1 - PCV) [code = Pneumococcal Vaccine: Pediatrics (0 to 5 Years) and At-Risk Patients (6 to 64 Years) (1 - PCV)] Future Scheduled Test 2022-03-06 Hepatitis C screening [facility] 19:05:17 (procedure) [code = 750532423] Future Scheduled Test 2022-03-06 COVID-19 VACCINE ([address] [place] [address] 19:05:17 Booster for Pfizer series) [code = COVID-19 VACCINE (3 - Booster for Pfizer series)] Future Scheduled Test 2022-03-06 INFLUENZA VACCINE [facility] 19:05:17 [code = INFLUENZA VACCINE] Future Scheduled Test 2022-03-06 Pneumococcal Vaccine: [facility] 19:05:17 Pediatrics (0 to 5 Years) and At-Risk Patients (6 to 64 Years) (1 - PCV) [code = Pneumococcal Vaccine: Pediatrics (0 to 5 Years) and At-Risk Patients (6 to 64 Years) (1 - PCV)] Future Scheduled Test 2022-03-06 Hepatitis C screening [facility] 19:05:17 (procedure) [code = 662793064] Future Scheduled Test 2022-03-06 COVID-19 VACCINE ([address] [place] [address] 19:05:17 Booster for Pfizer series) [code = COVID-19 VACCINE (3 - Booster for Pfizer series)] Future Scheduled Test 2022-03-06 INFLUENZA VACCINE [facility] 19:05:17 [code = INFLUENZA VACCINE] Future Scheduled Test 2022-03-06 Pneumococcal Vaccine: [facility] 19:05:17 Pediatrics (0 to 5 Years) and At-Risk Patients (6 to 64 Years) (1 - PCV) [code = Pneumococcal Vaccine: Pediatrics (0 to 5 Years) and At-Risk Patients (6 to 64 Years) (1 - PCV)] Future Scheduled Test 2022-03-06 Hepatitis C screening [facility] 19:05:17 (procedure) [code = 621459884] Future Scheduled Test 2022-03-06 COVID-19 VACCINE ([address] [place] [address] 19:05:17 Booster for Pfizer series) [code = COVID-19 VACCINE (3 - Booster for Pfizer series)] Future Scheduled Test 2022-03-06 INFLUENZA VACCINE [facility] 19:05:17 [code = INFLUENZA VACCINE] Future Scheduled Test 2022-03-06 Pneumococcal Vaccine: [facility] 19:05:17 Pediatrics (0 to 5 Years) and At-Risk Patients (6 to 64 Years) (1 - PCV) [code = Pneumococcal Vaccine: Pediatrics (0 to 5 Years) and At-Risk Patients (6 to 64 Years) (1 - PCV)] Future Scheduled Test 2022-03-06 Hepatitis C screening [facility] 19:05:17 (procedure) [code = [id number]] Future Scheduled Test 2022-03-06 COVID-19 VACCINE ([address] [place] [address] 19:05:17 Booster for Pfizer series) [code = COVID-19 VACCINE (3 - Booster for Pfizer series)] Future Scheduled Test 2022-03-06 INFLUENZA VACCINE [facility] 19:05:17 [code = INFLUENZA VACCINE] Instructions [facility] Encounters Start End Encounter Admission Attending Care Care Encounter Source Date/Time Date/Time Type Type Clinicians Facility Department ID 2022-08-26 Outpatient MAYDA Diaz [facility] [id number] [place] 10:40:02 Ronnell [id number] [facility] 2022-08-09 Inpatient GINNY GROSS [id number] [place] 16:07:58 [id number] [place] 2022-06-18 Inpatient YASMEEN KHANNA [facility] [id number] [place] 08:00:00 NAHUN [id number] [facility] 2022-06-11 Inpatient YASMEEN KHANNA [facility] [id number] [place] 08:00:00 [id number] [facility] 2022-06-08 Inpatient GINNY GROSS [id number] [place] 11:16:57 [id number] [place] 2022-05-31 Inpatient GINNY GROSS [id number] [place] 12:03:56 [id number] [place] 2022-05-19 Outpatient Diaz, [facility] [id number] [place] 09:43:04 Ronnell [id number] [facility] 2022-05-03 Inpatient YASMEEN ROMERO [facility] [id number] [place] 09:00:00 MAYNOR -[id number] [facility] 2022-03-23 Inpatient TEXANA TEXANA [id number] [place] 11:21:45 [id number] [place] 2022-10-19 2022-10-19 Emergency ER JOEL, [facility] D000 [id number] [place] 03:22:00 05:40:00 BRENDA -[id number] [facility] 2022-09-07 2022-09-07 Telephone Duc, 1.2.840.1 [id number] [id number] [facility] 00:00:00 00:00:[address] 3.430.2.7 Hospit a .3.189918 l .8 2022-09-07 2022-09-07 Telephone Duc, 1.2.840.1 [id number] [id number] [facility] 00:00:00 00:00:[address] 3.430.2.7 Hospit a .3.039107 l .8 2022-07-26 2022-08-06 Maynor Pierson. 1.2.840.1 [id number] [facility] 10:00:00 16:53:40 [place] [address]85.1.[address] 3.430.2.7 Hospit a .3.329778 l .8 2022-07-26 2022-08-06 Maynor Pierson. 1.2.840.1 [id number] [facility] 10:00:00 16:53:40 [place] [address].1.[address] 3.430.2.7 Hospit a .3.261084 l .8 2022-07-29 2022-07-29 Outpatient YASMEEN KHANNA [facility] [id number] [place] 09:54:00 09:54:00 NAHUN -[id number] [facility] 2022-07-26 2022-07-26 Travel 1.2.840.1 1.2.009.089 [id number] [facility] 00:00:00 00:00:[address] 3.430.2.7 0.2.7.3.698 Ho spita .3.274855 084.8 l .8 2022-07-26 2022-07-26 Travel 1.2.840.1 1.2.921.589 1842 [id number] [facility] 00:00:00 00:00:[address] 3.430.2.7 0.2.7.3.698 Ho spita .3.423840 084.8 l .8 2022-06-14 2022-07-10 Outpatient YASMEEN ROMERO, [facility] [id number] [place] 07:00:00 00:01:00 MAYNOR -[id number] [facility] 2022-07-05 2022-07-05 Emergency ER Barron, [facility] [id number] [place] 23:45:00 23:58:00 Neymar -[id number] [facility] 2022-06-25 2022-06-25 Outpatient YASMEEN Diaz, [facility] [id number] [place] 10:55:00 10:55:00 Ronnell -[id number] [facility] 2022-06-25 2022-06-25 Outpatient Eltonrio_F [facility] [id number] [place] 00:00:00 00:00:00 [facility]16 [facility] 2022-06-25 2022-06-25 Radha SAVAGE [place] - [id number] [place] 00:00:00 00:00:00 Discovery perry Diaz [employer]-C: [address] [facility] - [address], [facility], [facility] [place] [address] , Ph. 2022-06-24 2022-06-24 Kim Caicedoi, 1.2.840.1 [id number] 2100 [id number] [facility] 00:00:00 00:00:00 Only Rich [address]995.1.[address] 3.430.2.7 Hospit a .3.519074 l .8 2022-06-24 2022-06-24 Orders Dejah, 1.2.840.1 [id number] 2100 [id number] [facility] 00:00:00 00:00:00 Only Rich 73731.1.[address] 3.430.2.7 Hospit a .3.915878 l .8 2022-06-21 2022-06-21 Outpatient Eltongracya_F [facility] [id number] [place] 00:00:00 00:00:00 1212 [facility] 2022-06-21 2022-06-21 [facility] [place] - [id number] [place] 00:00:00 00:00:00 Micky Lozano Medical Medical MD: [address] [place] [address] [address], [place] [address] , Ph. 2022-06-09 2022-06-16 Inpatient ER [place], [facility] [id number] [place] 08:05:00 15:40:00 Ronnell [id number] [facility] 2022-06-02 2022-06-09 Outpatient YASMEEN ROMERO [facility] [id number] [place] 11:00:00 00:01:00 MAYNOR [id number] [facility] 2022-06-07 2022-06-07 Inpatient ER ORLANDO [facility] [id number] [place] 17:16:00 14:35:00 RONNELL [id number] [facility] 2022-06-05 2022-06-05 Emergency ER GUME [facility] [id number] [place] 15:31:00 15:45:00 JASON -[id number] [facility] 2022-05-26 2022-05-26 Outpatient YASMEEN ROMERO [facility] [id number] [place] 11:00:00 11:00:00 MAYNOR -[id number] [facility] 2022-05-24 2022-05-24 Outpatient YASMEEN ROMERO, [facility] [id number] [place] 11:00:00 11:00:00 MAYNOR -[id number] [facility] 2022-05-21 2022-05-21 Outpatient YASMEEN ROMERO, [facility] [id number] [place] 11:00:00 11:00:00 MAYNOR -[id number] [facility] 2022-05-20 2022-05-20 Outpatient YASMEEN KHANNA, [facility] [id number] [place] 08:01:00 08:01:00 NAHUN -[id number] [facility] 2022-05-19 2022-05-19 Orders Jeani, 1.2.840.1 [id number] 2100 [id number] [facility] 00:00:00 00:00:00 Only Rich [address]698.1.[address] 3.430.2.7 Hospit a .3.181549 l .8 2022-05-19 2022-05-19 Orders Jeani, 1.2.840.1 [id number] 2099 [id number] [facility] 00:00:00 00:00:00 Only Rich 67589.1.[address] 3.430.2.7 Hospit a .3.351744 l .8 2022-05-19 2022-05-19 OFFICE [facility] [id number] mmon 00:00:00 00:00:00 VISIT [facility] PT LEVEL 3 - [facility] 2022-05-18 2022-05-18 Emergency ER CINDAALYMCKAYDANTE, [facility] D000 [id number] [place] 19:04:00 21:55:00 BRENDA -[id number] [facility] 2022-04-30 2022-04-30 Emergency ER [facility] [facility] [id number] [place] 14:49:00 15:34:00 JASON -[id number] [facility] 2022-04-25 2022-04-25 Emergency ER Barron, [facility] [id number] [place] 14:10:00 14:43:00 Neymar -[id number] [facility] 2022-04-21 2022-04-21 Emergency ER JACLYN, [facility] [id number] [place] 08:47:00 10:02:00 SHI [id number] [facility] 2022-04-19 2022-04-19 Office Wood, 1.2.840.1 [id number] 4125 Methodi 10:20:00 11:30:20 Visit Maynor Lynch. 52656.1.1 837 s t 3.430.2.7 Hospit a .3.349280 l .8 2022-04-19 2022-04-19 Office Wood, 1.2.840.1 [id number] 9700 Methodi 10:20:00 11:30:20 Visit Maynor Lynch. 43712.1.1 837 s t 3.430.2.7 Hospit a .3.485657 l .8 2022-04-19 2022-04-19 Travel 1.2.840.1 1.2.692.908 2047 241159 Methodi 00:00:00 00:00:[address] 3.430.2.7 0.2.7.3.698 Ho spita .3.051742 084.8 l .8 2022-04-19 2022-04-19 Travel 1.2.840.1 1.2.529.013 3254 654868 Methodi 00:00:00 00:00:[address] 3.430.2.7 0.2.7.3.698 Ho spita .3.127321 084.8 l .8 2022-04-16 2022-04-16 Emergency ER Beatrice, [facility] [id number] [place] 08:42:00 11:50:00 Neymar [id number] [facility] 2022-04-14 2022-04-14 Emergency ER JACLYN, [facility] [id number] [place] 07:08:00 08:22:00 SHI -[id number] [facility] 2022-04-05 2022-04-05 Emergency ER Melissa, [facility] [id number] [place] 12:23:00 14:08:00 Alexa -[id number] [facility] 2022-04-01 2022-04-01 Outpatient Zuniga_F MMG [facility] [id number]- 2021 [place] 00:00:00 00:00:00 921 [facility] 2022-04-01 2022-04-01 Orders Mariferi, 1.2.840.1 [id number] 2099 [id number] Methodi 00:00:00 00:00:00 Only Rich 36050.1.[address] 3.430.2.7 Hospit a .3.696304 l .8 2022-04-01 2022-04-01 Orders Mariferi, 1.2.840.1 [id number] 2099 924139 Methodi 00:00:00 00:00:00 Only Rich 50564.1.[address] 3.430.2.7 Hospit a .3.323200 l .8 2022-03-31 2022-03-31 Emergency ER JACLYN, [facility] [id number] [place] 13:34:00 16:08:00 SHI -[id number] [facility] 2022-03-21 2022-03-21 Emergency ER GUME, [facility] [id number] [place] 09:47:00 14:33:00 JASON -[id number] [facility] 2022-03-19 2022-03-19 Office Dejah, 1.2.840.1 [id number] 2099 905512 Methodi 14:20:00 14:33:59 Visit Rich 39051.1.[address] 3.430.2.7 Hospit a .3.830777 l .8 2022-03-19 2022-03-19 Office Dejah, 1.2.840.1 [id number] 2099 703604 Methodi 14:20:00 14:33:59 Visit Rich 90737.1.[address] 3.430.2.7 Hospit a .3.240718 l .8 2022-03-19 2022-03-19 Travel 1.2.840.1 1.2.035.329 8074 855499 Methodi 00:00:00 00:00:[address] 3.430.2.7 0.2.7.3.698 Ho spita .3.748094 084.8 l .8 2022-03-19 2022-03-19 Travel 1.2.840.1 1.2.487.550 4856 503123 Methodi 00:00:00 00:00:[address] 3.430.2.7 0.2.7.3.698 Ho spita .3.307169 084.8 l .8 2022-03-11 2022-03-11 Emergency ER Gerardore, [facility] [id number] [place] 09:45:00 13:28:00 Chance -[id number] [facility] 2022-03-09 2022-03-09 Outpatient Duarte_Sundar [facility] [id number] -2021 [place] 00:00:00 00:00:00 0830 Medical Group 2022-03-09 2022-03-09 Kia [facility] [place] - [id number] M at[place] 00:00:00 00:00:00 Discovery perry Simpson PACamdenC: [address] [facility] - [address] [place] [address] , Ph. 2022-03-07 2022-03-07 Emergency ER JACLYN, [facility] [id number] [place] 12:01:00 13:53:00 SHI -[id number] [facility] 2022-03-03 2022-03-03 Telephone Apolinar, 1.2.840.1 [id number] 2099 [id number] Methodi 00:00:00 00:00:[address] 3.430.2.7 Hospit a .3.778454 l .8 2022-03-03 2022-03-03 [place] 39199.2.840.1 [id number] 2100 000603 Methodi 00:00:00 00:00:[address] 3.430.2.7 Hospit a .3.585748 l .8 2022-03-02 2022-03-02 [facility] 1.2.840.1 [id number] 91933 31841 Methodi 05:56:00 11:56:00 Encounter Maynor Sánchez 75182.1.[address] 3.430.2.7 Hospit a .3.672033 l .8 2022-03-02 2022-03-02 [facility] 1.2.840.1 [id number] 43341 92467 Methodi 05:56:00 11:56:00 Encounter Maynor Sánchez 05395.1.[address] 3.430.2.7 Hospit a .3.921471 l .8 2022-03-02 2022-03-02 Anesthesia Alfreda Duvall 1.2.840.1 10 [id number] Methodi 07:29:00 09:55:00 Event Anna Adair 20761.1.[address] 3.430.2.7 Hospit a .3.833791 l .8 2022-03-02 2022-03-02 Anesthesia Alfreda Duvall 1.2.840.1 10 [id number] 1129640691 Methodi 07:29:00 09:55:00 Event Anna Adair 30806.1.[address] 3.430.2.7 Hospit a .3.138836 l .8 2022-03-02 2022-03-02 [facility] 12.840.1 [id number] 841072 7672 Methodi 07:30:00 09:50:00 Maynor B. 78854.1.1 735 s t 3.430.2.7 Hospit a .3.217876 l .8 2022-03-02 2022-03-02 [facility], 1.2.840.1 [id number] 087464 3435 Methodi 07:30:00 09:50:00 Maynor LynchJuan José 82598.1.1 735 s t 3.430.2.7 Hospit a .3.020682 l .8 2022-03-02 2022-03-02 Telephone Dejah, 1.2.840.1 [id number] 21 [id number] Methodi 00:00:00 00:00:[address] 3.430.2.7 Hospit a .3.860852 l .8 2022-03-02 2022-03-02 Telephone Dejah, 1.2.840.1 [id number] 21 [id number] Methodi 00:00:00 00:00:[address] 3.430.2.7 Hospit a .3.333067 l .8 2022-03-01 2022-03-01 [facility], 1.2.840.1 586287253 80442 47107 Methodi 12:18:26 23:59:00 Encounter Maynor LynchJuan José 51277.1.[address] 3.430.2.7 Hospit a .3.504960 l .8 2022-03-01 2022-03-01 [facility], 1.2.840.1 [id number] 74825 Methodi 12:18:26 23:59:00 Encounter Maynor B. 27677.1.[address] 3.430.2.7 Hospit a .3.577990 l .8 2022-03-01 2022-03-01 [facility]1 [id number] 417 9886461 Methodi 09:30:00 10:30:00 ion Maynor B. 72601.1.1 034 s t Testing 3.430.2.7 Hospit a .3.056513 l .8 2022-03-01 2022-03-01 [facility]miss [facility], 1.2.840.1 591593535 788 0279001 Methodi 09:30:00 10:30:00 ion Maynor B. 35100.1.1 034 s t Testing 3.430.2.7 Hospit a .3.462728 l .8 2022-03-01 2022-03-01 Telephone Bedolla, 1.2.840.1 [id number] Methodi 00:00:00 00:00:[address] 3.430.2.7 Hospit a .3.864438 l .8 2022-03-01 2022-03-01 Travel 1.2.840.1 1.2.037.336 7596 178846 Methodi 00:00:00 00:00:[address] 3.430.2.7 0.2.7.3.698 Ho spita .3.657476 084.8 l .8 2022-03-01 2022-03-01 Telephone Bedolla, 1.2.840.1 824725046 73287306 Methodi 00:00:00 00:00:[address] 3.430.2.7 Hospit a .3.320551 l .8 2022-03-01 2022-03-01 Travel 1.2.840.1 1.2.826.823 0696 956552 Methodi 00:00:00 00:00:[address] 3.430.2.7 0.2.7.3.698 Ho spita .3.174949 084.8 l .8 2022-02-26 2022-02-26 Telephone Wood, 1.2.840.1 [id number] 2099685 Methodi 00:00:00 00:00:00 Maynor Sánchez 56215.1.1 279 s t 3.430.2.7 Hospit a .3.822588 l .8 2022-02-26 2022-02-26 Travel 1.2.840.1 1.2.389.425 2486 384627 Methodi 00:00:00 00:00:[address] 3.430.2.7 0.2.7.3.698 Ho spita .3.886604 084.8 l .8 2022-02-26 2022-02-26 Telephone Nick, 1.2.840.1 [id number] 2099685 Methodi 00:00:00 00:00:00 Maynor Sánchez 35226.1.1 279 s t 3.430.2.7 Hospit a .3.408814 l .8 2022-02-26 2022-02-26 Travel 1.2.840.1 1.2.376.897 9346 376551 Methodi 00:00:00 00:00:[address] 3.430.2.7 0.2.7.3.698 Ho spita .3.319337 084.8 l .8 2022-02-24 2022-02-25 Emergency [place] [place] 1.2.840.1 1041 24127 4904489039 Methodi 15:25:00 19:45:00 Yoel Arielantonia Coylegrupo 36378.1.[address] 3.430.2.7 Hospit a .3.810457 l .8 2022-02-24 2022-02-25 Emergency ChamorroReynaldo barrigas 1.2.840.1 1041 67046 8389542330 Methodi 15:25:00 19:45:00 Yoel Arielantonia Coylegrupo 93422.1.[address] 3.430.2.7 Hospit a .3.254971 l .8 2022-02-25 2022-02-25 Transcribe Nick, 1.2.840.1 [id number] 925 1223461 Methodi 00:00:00 00:00:00 Orders Maynor Sánchez 98231.1.1 241 s t 3.430.2.7 Hospit a .3.277560 l .8 2022-02-25 2022-02-25 Orders Dejah, 1.2.840.1 6604724962099592 Methodi 00:00:00 00:00:00 Only Rich Pedraza50.1.[address] 3.430.2.7 Hospit a .3.578897 l .8 2022-02-25 2022-02-25 [facility] 1.[facility].840.1 307503283 998 8024266 Methodi 00:00:00 00:00:00 Orders Maynor Sánchez 89430.1.1 241 s t 3.430.2.7 Hospit a .3.232267 l .8 2022-02-25 2022-02-25 Orders Marifermisael, 1.2.840.1 266459479 2100 570923 Methodi 00:00:00 00:00:00 Only Rich 87037.1.[address] 3.430.2.7 Hospit a .3.701059 l .8 2022-02-24 2022-02-24 [facility], 1.2.840.1 [id number] 00433 Methodi 18:39:58 23:59:00 Encounter Maynor Sánchez 67553.1.[address] 3.430.2.7 Hospit a .3.235836 l .8 2022-02-24 2022-02-24 [facility], 1.2.840.1 [id number] Methodi 18:39:58 23:59:00 Encounter Maynor Sánchez 62253.1.[address] 3.430.2.7 Hospit a .3.156065 l .8 2022-02-24 2022-02-24 [facility], 1.2.840.1 439929671 Methodi 18:39:26 23:59:00 Encounter Maynor Sánchez [address]4260.1.[address] 3.430.2.7 Hospit a .3.049882 l .8 2022-02-24 2022-02-24 [facility], 1.2.840.1 [id number] Methodi 18:39:26 23:59:00 Encounter Maynor Sánchez 86379.1.[address] 3.430.2.7 Hospit a .3.314586 l .8 2022-02-24 2022-02-24 [facility], 1.2.840.1 [id number] 175043 7335 Methodi 00:00:00 00:00:00 Only Maynor Sánchez 10877.1.1 790 s t 3.430.2.7 Hospit a .3.542772 l .8 2022-02-24 2022-02-24 Travel 1.2.840.1 1.2.708.373 9325 285823 Methodi 00:00:00 00:00:[address] 3.430.2.7 0.2.7.3.698 Ho spita .3.383413 084.8 l .8 2022-02-24 2022-02-24 Orders Wood, 1.2.840.1 240366933 601205 4529 Methodi 00:00:00 00:00:00 Only Maynor Sánchez 44415.1.1 790 s t 3.430.2.7 Hospit a .3.883745 l .8 2022-02-24 2022-02-24 Travel 1.2.840.1 1.2.399.955 2812 565709 Methodi 00:00:00 00:00:[address] 3.430.2.7 0.2.7.3.698 Ho spita .3.944799 084.8 l .8 2022-02-12 2022-02-12 Emergency ER GUME, [facility] [id number] [place] 08:42:00 13:17:00 JASON -[id number] [facility] 2022-01-26 2022-01-26 Outpatient SANDIE_HERNÁN [facility] 909 [place] 12:18:00 12:18:00 _DOREEN 0719 [facility] 2022-01-17 2022-01-17 Emergency ER Melissa, [facility] [id number] [place] 18:06:00 21:18:00 Alexa [id number] [facility] 2021-12-18 2021-12-18 Vikki Romero, 1.2.840.1 [id number] 3619 Methodi 10:20:00 11:32:26 Visit Maynor Sánchez 70546.1.1 071 s t 3.430.2.7 Hospit a .3.316421 l .8 2021-12-18 2021-12-18 Office Nick, 1.2.840.1 [id number] 745031 9701 Methodi 10:20:00 11:32:26 Visit Maynor Sánchez 43540.1.1 071 s t 3.430.2.7 Hospit a .3.138889 l .8 2021-12-18 2021-12-18 Travel 1.2.840.1 1.2.447.232 6104 892850 Methodi 00:00:00 00:00:[address] 3.430.2.7 0.2.7.3.698 Ho spita .3.251240 084.8 l .8 2021-12-18 2021-12-18 [facility] [id number] [place] 00:00:00 00:00:00 MAYNOR [address] 2021-12-18 2021-12-18 Travel 1.2.840.1 1.2.859.546 2798 228810 Methodi 00:00:00 00:00:[address] 3.430.2.7 0.2.7.3.698 Ho spita .3.021174 084.8 l .8 2021-12-18 2021-12-18 [facility] [id number] [place] 00:00:00 00:00:00 MAYNOR [address] 2021-11-30 2021-11-30 Emergency ER HELEN RICO [facility] [id number] 79 [place] 01:26:00 04:02:00 HARRISON [id number] [facility] 2021-11-06 2021-11-06 [facility] [id number] -2021 [place] 12:33:00 12:33:00 0502 Medical [facility] 2021-11-06 2021-11-06 Outpatient Hawkins_M MMG [facility] [id number] [place] 00:00:00 00:00:00 0429 [facility] 2021-11-06 2021-11-06 Susan MM [place] - [id number] M at[place] 00:00:00 00:00:00 Aracelis Hunter 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 2021-11-05 2021-11-05 [place] [id number] [place] 04:51:00 04:51:00 0428 [facility] 2021-09-14 2021-09-14 Outpatient Koudela_A MMG [facility] [id number] [place] 12:39:00 12:39:00 0307 [facility] 2021-09-14 2021-09-14 Kia [facility] [place] - [id number] M [place] 00:00:00 00:00:00 Discovery Calvin da PA-C: [address] [address] , Ph. 2021-09-14 2021-09-14 Travel 1.2.840.1 1.2.558.944 0280 447517 Methodi 00:00:00 00:00:[address] 3.430.2.7 0.2.7.3.698 spita .3.477783 084.8 l .8 2021-08-10 2021-08-10 Outpatient Koudela_A MMG [facility] [id number] -2021 [place] 11:36:00 11:36:00 0131 [facility] 2021-08-10 2021-08-10 [place] [id number] [place] 11:36:00 11:36:00 0211 [facility] 2021-08-10 2021-08-10 [facility] [id number] [place] 11:05:00 11:05:00 KIA -[id number] [facility] 2021-06-24 2021-06-24 Inpatient ER Nawaf, [facility] MED [id number] [place] 00:24:00 13:53:00 Abraham -[id number] [facility] 2021-05-04 2021-05-04 Outpatient Zuniga_F MMG [facility] [id number]- 2020 [place] 10:22:00 10:22:00 1220 [facility] 2021-04-28 2021-04-29 Emergency ER GINGBRIDGER, [facility] [id number] [place] 18:03:00 01:22:00 BARBARA -[id number] [facility] 2021-03-26 2021-03-26 [place] [id number]- 2020 [place] 10:53:00 10:53:00 0916 [facility] 2021-03-26 2021-03-26 Outpatient EL Diaz, [facility] [id number] [place] 08:44:00 08:44:00 Ronnell -[id number] [facility] 2021-03-26 2021-03-26 Ronnell [facility] [place] - [id number] [place] 00:00:00 00:00:00 Micky Lozano Medical Medical MD: [address] [place] [address], [place] [address] , Ph. 2021-03-10 2021-03-10 Outpatient Zuniga_F MMG [facility] 71210- 2020 [place] 04:23:00 04:23:00 0831 [facility] 2021-03-10 2021-03-10 Ronnell [facility] [place] - [id number] [place] 00:00:00 00:00:00 Micky Lozano Medical Medical MD: [address] [place] [address] 201, [place] [address] , Ph. 2021-02-19 2021-02-19 Emergency ER OWO, TOKS [facility] [id number] [place] 09:17:00 18:11:00 -[id number] [facility] 2021-02-18 2021-02-18 Outpatient Zuniga_F MMG [facility] [id number]- 2020 [place] 10:58:00 10:58:00 0811 [facility] 2021-02-13 2021-02-13 Outpatient Zuniga_S MMG [facility] [id number]- 2020 [place] 11:36:00 11:36:00 0806 [facility] 2021-02-11 2021-02-11 Outpatient Zuniga_S MMG [facility] [id number]- 2020 [place] 04:11:00 04:11:00 0804 [facility] 2021-01-18 2021-01-18 Emergency ER CHINO, [facility] [id number] [place] 07:23:00 15:33:00 JASONNDVESTAFF -[id number] [facility] 2021-01-02 2021-01-02 Outpatient Zuniga_S MMG [facility] [id number]- 2020 [place] 11:03:00 11:03:00 0625 [facility] 2021-01-02 2021-01-02 Outpatient Zuniga_S MMG [facility] [id number]- 2020 [place] 11:03:00 11:03:00 0626 Medical [facility] 2021-01-02 2021-01-02 Radha [facility] [place] - [id number] [place] 00:00:00 00:00:00 Discovery 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 2020-07-15 2020-07-15 Outpatient Zuniga_F MMG [facility] [id number]- 2020 [place] 12:50:00 12:50:00 0105 [facility] 2020-07-15 2020-07-15 Outpatient Zuniga_F MMG [facility] [id number]- 2020 [place] 12:50:00 12:50:00 0111 [facility] 2020-07-152020-07-15 Tyson MMG [place] - [id number] M atagor 00:00:00 00:00:00 Discovery perry Munoz MD: [address] [place] [address] [address], [place] [address] , Ph. 2020-07-14 2020-07-14 Outpatient Zuniga_F MMG [facility]G [id number]- 2020 [place] 04:30:00 04:30:00 0104 [facility] 2020-07-14 2020-07-14 Ronnell MMG [place] - [id number] [place] 00:00:00 00:00:00 Aracelis Klein MD: [address] [place] [address] 201, [place] [address] , Ph. 2020-07-10 2020-07-10 Outpatient Zuniga_F MMG MMG [id number] [place] 10:29:00 10:29:00 1231 Medical Group 2020-07-07 2020-07-08 Emergency ER HINDMAN, [facility] [id number] [place] 23:32:00 12:45:00 PRISCILA [id number] [facility] 2020-02-26 2020-02-26 Outpatient Zuniga_F MMG MMG [id number]- 2019 [place] 12:39:00 12:39:00 1229 Medical Group 2020-02-26 2020-02-26 Outpatient Zuniga_F MMG MMG [id number] [place] 12:39:00 12:39:00 1230 Medical Group 2020-01-30 2020-01-30 Outpatient Zuniga_F MMG MMG [id number] [place] 08:08:00 08:08:00 0722 Medical Group 2020-01-30 2020-01-30 Ronnell [facility] - [id number] [place] 00:00:00 00:00:00 Aracelis Klein MD: [address] [facility] [address], [place] [address] , Ph. 2020-01-29 2020-01-29 Outpatient Raju_P MMG [facility] [id number] 020 [place] 04:40:00 04:40:00 07 Medical [facility] 2019-11-06 2019-11-06 Outpatient Raju_P MMG MMG [id number] [place] 03:29:00 03:29:00 0428 Medical Group 2019-11-06 2019-11-06 Outpatient Raju_P MMG MMG [id number] [place] 03:29:00 03:29:00 042 [facility] 2019-03-02 2019-03-02 Outpatient YASMEEN ASCENCIO, [facility] [id number] [place] 11:02:00 11:02:00 BYROLPHIL -[id number] [facility] 2019-02-13 2019-02-13 Emergency ER CHINO, [facility] [id number] [place] 17:16:00 18:34:00 PRISCILA -[id number] [facility] 2018-02-07 2018-02-07 Outpatient YASMEEN LUU [facility] D00 [id number] [place] 09:47:00 09:47:00 Mario Alberto AMMINI -[id number] [facility] 2017-10-12 2017-10-12 Emergency ER OWO, TOKS [facility] [id number] [place] 17:50:00 19:49:00 -[id number] [facility] 2017-06-01 2017-06-01 Emergency ER OWO, TOKS [facility] [id number] [place] 04:32:00 06:26:00 -[id number] [facility] 2017-02-24 2017-02-24 Outpatient YASMEEN ASCENCIO, [facility] [id number] [place] 08:41:00 08:41:00 BYROLYN -[id number] [facility] 2017-01-13 2017-01-13 Emergency ER UGOR, [facility] [id number] [place] 00:20:00 03:56:00 CEDRIC -[id number] [facility] 2016-09-02 2016-09-02 Emergency ER UGOR, [facility] [id number] [place] 13:20:00 14:30:00 CLEMENT -[id number] [facility] 2016-04-28 2016-04-29 Emergency ER OWO, TOKS [facility] [id number] [place] 22:59:00 01:22:00 -[id number] [facility] 2015-09-28 2015-09-29 Emergency ER SAEMI, [facility] [id number] 79 [place] 21:04:00 08:15:00 NUNO -[id number] [facility] 2015-05-05 2015-05-05 Emergency ER UGORJI, [facility] [id number] 79 [place] 19:34:00 21:26:00 CLEALONZO -[id number] [facility] 2014-11-07 2014-11-08 Emergency ER OWO, TOKS [facility] [id number] [place] 23:26:00 04:30:00 -[id number] [facility] 2014-08-01 2014-08-01 Outpatient EL VALLOPPILLI [facility] D00 [id number] [place] 12:03:00 12:03:00 Mario Alberto, AMMINI -[id number] [facility] 2011-12-29 2011-12-29 Emergency ER OTINWA, [facility] [id number] [place] 19:51:00 22:10:00 PARKER -[id number] [facility] 2011-11-12 2011-11-12 Outpatient EL VALLOPPILLI [facility] D00 [id number] [place] 07:58:00 07:58:00 Mario Alberto AMMINI -[id number] [facility] 2011-10-10 2011-10-11 Emergency ER THAKKAR, [facility] [id number] [place] 22:24:00 01:45:00 WASIM -[id number] [facility] 2011-10-06 2011-10-06 Emergency ER UGORJI, [facility] [id number] [place] 00:27:00 06:30:00 CLEALONZO -[id number] [facility] 2011-09-08 2011-09-08 Outpatient EL VALLOPPILLI [facility] D00 [id number] [place] 11:57:00 11:57:00 L, AMMINI -[id number] [facility] 2010-06-16 2010-06-17 Emergency ER LARISSA [facility] [id number] [place] 18:00:00 04:05:00 ZBIGNIEW -[id number] d a [facility] 2010-03-24 2010-03-24 Outpatient EL BELL [facility] D00 [id number] [place] 14:21:00 14:21:00 L, AMMINI -[id number] [facility] Results Test Description Test Time Test Comments [...] alkaline 60 U/L 40-1 30 phosphatase, total) [facility] 12:31[facility]00 Test Item Value Reference Range Interpretation Comments lipase (test code = lipase) 290 U/L 13-60 H [facility] Differential [facility] - [id number] 12:07:00 Test Item Value Reference Range Interpretation [...] NRBC# (test code = NRBC#) 0 K/uL [facility]ed[facility]2022-06-16 07:40:00 Test Item Value [...] (test code = normal normal platelet morphology) [facility] 07:12:00 Test Item Value Reference Range Interpretation Comments lipase (test code = lipase) 432 U/L 13-60 [facility] - Serum or [...] U/L 40-130 code = alkaline phosphatase, total) [facility] 07:06:00 Test Item Value Reference Range Interpretation Comments LDH (test code = LDH) 421 U/L 135-225 H [facility] 07:06:00 Test Item Value Reference Range Interpretation Comments LDH (test code = LDH) 421 U/L 135-225 [facility] Differential panel - [id number] 06:46:00 Test Item Value Reference Range Interpretation [...] morph. normal RBC code = morphology comment) [facility] 11:10:00 Test Item Value Reference Range Interpretation Comments lipase (test code = lipase) 478 U/L 13-60 H [facility] - Serum or [...] U/L 40-130 code = alkaline phosphatase, total) [facility] W Ordered Manual Differential panel - [id number] 10:52:00 Test Item Value Reference Range Interpretation [...] (test normal normal code = platelet morphology) [facility]2022-06-14 05:46:00 Test Item Value [...] (test code = normal normal platelet morphology) [facility] - Serum or [...] U/L 40-130 code = alkaline phosphatase, total) [facility] 05:30:00 Test Item Value Reference Range Interpretation Comments lipase (test code = lipase) 273 U/L 13-60 H [facility] W Auto Differential panel - [id number] 05:16:00 Test Item Value Reference Range Interpretation [...] morph. normal RBC code = morphology comment) [facility] diff (reflexed)2022-06-13 11:13:00 Test Item Value [...] (test code = normal normal platelet morphology) [facility] diff (reflexed)2022-06-13 11:13:00 Test Item Value [...] (test code = normal normal platelet morphology) [facility] diff (reflexed)2022-06-13 11:13:00 Test Item Value [...] (test code = normal normal platelet morphology) [facility] diff (reflexed)2022-06-13 11:13:00 Test Item Value [...] (test code = normal normal platelet morphology) [facility] W Auto Differential panel - [id number] 08:26:00 Test Item Value Reference Range Interpretation [...] NRBC# (test code = NRBC#) 0 K/uL [facility] - [id number] 08:26:00 Test Item Value Reference Range Interpretation [...] NRBC# (test code = NRBC#) 0 K/uL [facility] - Serum or [...] U/L 40-130 code = alkaline phosphatase, total) [facility] 08:22:00 Test Item Value Reference Range Interpretation Comments lipase (test code = lipase) 226 U/L 13-60 H [facility] - Serum or [...] U/L 40-130 code = alkaline phosphatase, total) [facility] 08:22:00 Test Item Value Reference Range Interpretation Comments lipase (test code = lipase) 226 U/L 13-60 H [facility] - Serum or [...] U/L 40-130 code = alkaline phosphatase, total) [facility] 04:36:00 Test Item Value Reference Range Interpretation Comments lipase (test code = lipase) 102 U/L 13-60 H [facility] 04:36:00 Test Item Value Reference Range Interpretation Comments lipase (test code = lipase) 102 U/L 13-60 H [facility] - Serum or [...] U/L 40-130 code = alkaline phosphatase, total) [facility] 04:36:00 Test Item Value Reference Range Interpretation Comments lipase (test code = lipase) 102 U/L 13-60 H [facility] 04:36:00 Test Item Value Reference Range Interpretation Comments lipase (test code = lipase) 102 U/L 13-60 H [facility] Auto Differential panel - [id number] 04:18:00 Test Item Value Reference Range Interpretation [...] NRBC# (test code = NRBC#) 0 K/uL [facility] W Auto Differential panel - [id number] 04:18:00 Test Item Value Reference Range Interpretation [...] NRBC# (test code = NRBC#) 0 K/uL [place] [id number] 08:39:00 Test Item Value Reference Range Interpretation Comments LDH (test code = LDH) 457 U/L 135-225 H [place] [id number] 08:39:00 Test Item Value Reference Range Interpretation Comments LDH (test code = LDH) 457 [facility]L [id number] 08:26:00 Test Item Value Reference Range Interpretation Comments lactic acid (test code = lactic 1.12 mmol/L 0.5-2.2 acid) [facility] [id number] 08:26:00 Test Item Value Reference Range Interpretation Comments lactic acid (test code = lactic 1.12 mmol/L 0.5-2.2 acid) [facility] 07:47:00 Test Item Value Reference Range Interpretation Comments lipase (test code = lipase) 136 U/L 13-60 H [facility] 07:47:00 Test Item Value Reference Range Interpretation Comments lipase (test code = lipase) 136 U/L 13-60 H [facility] - Serum or [...] U/L 40-130 code = alkaline phosphatase, total) [facility] - Serum or [...] U/L 40-130 code = alkaline phosphatase, total) [facility]2022-06-11 07:30:00 Test Item Value [...] (test code = normal normal platelet morphology) [facility]2022-[facility]-11 07:30:00 Test Item Value [...] (test code = normal normal platelet morphology) [facility] W Auto Differential panel - [id number] 07:23:00 Test Item Value Reference Range Interpretation [...] morph. normal RBC code = morphology comment) [facility] W Auto Differential panel - [id number] 07:23:00 Test Item Value Reference Range Interpretation [...] morph. normal RBC code = morphology comment) [facility] panel - Arterial [id number] 15:03:00 Test Item Value Reference Range Interpretation [...] (test code = O2 7.9 mmol/L content) [facility] panel - Arterial [id number] 15:03:00 Test Item Value Reference Range Interpretation [...] (test code = O2 7.9 mmol/L content) [facility] [id number] 13:03:00 Test Item Value Reference Range Interpretation Comments blood culture (test code = final report. blood culture) [facility] [id number] 13:03:00 Test Item Value Reference Range Interpretation Comments blood culture (test code = final report. blood culture) [facility]2022-06-10 07:41:00 Test Item Value Reference [...] (test code = normal normal platelet morphology) [facility]2022-06-10 07:41:00 Test Item Value Reference [...] (test code = normal normal platelet morphology) [facility] 07:33:00 Test Item Value Reference Range Interpretation Comments LDH (test code = LDH) 319 U/L 135-225 H [facility]2022-12-01 07:33:00 Test Item Value Reference Range Interpretation Comments LDH (test code = LDH) 319 U/L 135-225 H [facility] - Serum or [...] U/L 40-130 code = alkaline phosphatase, total) [facility] 07:28:00 Test Item Value Reference Range Interpretation Comments lipase (test code = lipase) 297 U/L 13-60 H [facility] - Serum or [...] U/L 40-130 code = alkaline phosphatase, total) [facility] 07:28:00 Test Item Value Reference Range Interpretation Comments lipase (test code = lipase) 297 U/L 13-60 H [facility] [id number] 07:26:00 Test Item Value Reference Range Interpretation Comments lactic acid (test code = lactic 1.18 mmol/L 0.5-2.2 acid) [facility] [id number] 07:26:00 Test Item Value Reference Range Interpretation Comments lactic acid (test code = lactic 1.18 mmol/L 0.5-2.2 acid) [facility] [id number] 06:53:00 Test Item Value Reference Range Interpretation Comments ionized calcium (test code = 4.17 mg/dL 4.34-5.00 L ionized calcium) [facility] W Auto Differential panel - [id number] 06:53:00 Test Item Value Reference Range Interpretation [...] morph. normal RBC code = morphology comment) [facility] [id number] 06:53:00 Test Item Value Reference Range Interpretation Comments ionized calcium (test code = 4.17 mg/dL 4.34-5.00 L ionized calcium) [facility] W Auto Differential panel - [id number] 06:53:00 Test Item Value Reference Range Interpretation [...] morph. normal RBC code = morphology comment) [facility] 06:34:00 Test Item Value Reference Range Interpretation Comments lipase (test code = lipase) 1018 U/L 13-60 H [facility]2022-11-30 06:34:00 Test Item Value Reference Range Interpretation Comments lipase (test code = lipase) 1018 U/L 13-60 H [facility]2022-11-30 06:33:00 Test Item Value Reference Range Interpretation Comments LDH (test code = LDH) 296 U/L 135-225 H [facility]2022-11-30 06:33:00 Test Item Value Reference Range Interpretation Comments LDH (test code = LDH) 296 U/L 135-225 H [facility] 2000 [facility] - Serum or [...] U/L 40-130 code = alkaline phosphatase, total) [facility] - Serum or [...] U/L 40-130 code = alkaline phosphatase, total) [facility] [id number] 06:26:00 Test Item Value Reference Range Interpretation Comments lactic acid (test code = lactic 1.00 mmol/L 0.5-2.2 acid) [facility] [id number] 06:26:00 Test Item Value Reference Range Interpretation Comments lactic acid (test code = lactic 1.00 mmol/L 0.5-2.2 acid) [facility] W Auto Differential panel - [id number] 06:16:00 Test Item Value Reference Range Interpretation [...] NRBC# (test code = NRBC#) 0 K/uL [facility] W Auto Differential panel - [id number] 06:16:00 Test Item Value Reference Range Interpretation [...] NRBC# (test code = NRBC#) 0 K/uL [facility] [id number] 05:06:00 Test Item Value Reference Range Interpretation [...] (test code = 6.828 cholesterol risk ratio) [facility] [id number] 05:06:00 Test Item Value Reference Range Interpretation [...] (test code = 6.828 cholesterol risk ratio) [facility]22-[facility] 04:59:00 Test Item Value Reference Range Interpretation Comments lipase (test code = lipase) 1955 U/L 13-60 H [facility]2022-11-29 04:59:00 Test Item Value Reference Range Interpretation Comments lipase (test code = lipase) 1955 U/L 13-60 H [facility]2022-11-29 04:59:00 Test Item Value Reference Range Interpretation Comments lipase (test code = lipase) 1955 U/L 13-60 H [facility]2022-11-29 04:59:00 Test Item Value Reference Range Interpretation Comments lipase (test code = lipase) 1955 U/L 13-60 H [facility] W Auto Differential panel - [id number] 04:07:00 Test Item Value Reference Range Interpretation [...] NRBC# (test code = NRBC#) 0 K/uL [facility] W Auto Differential panel - [id number] 04:07:00 Test Item Value Reference Range Interpretation [...] NRBC# (test code = NRBC#) 0 K/uL [facility] [id number] 18:23:00 Test Item Value Reference Range Interpretation Comments alcohol level (test code = alcohol < 10.0 0.0-10.1 level) [facility]coh[id number] 18:23:00 Test Item Value Reference Range Interpretation Comments alcohol level (test code = alcohol < 10.0 0.0-10.1 level) [facility]2022-08-23 11:47:00 Test Item Value Reference Range Interpretation Comments POC glucose (test code = 103 mg/dL 65-99 H Ope rator Name: 08185-0) Esmail Quratabdirahman in [facility] ID: [id number] able: RN Notified Lab Interpretation (test Abnormal code = 05788-1) [facility]2022-08-23 11:47:00 Test Item Value Reference Range Interpretation Comments POC glucose (test code = 103 mg/dL 65-99 H Ope rator Name: 84802-9) Esmail Quratula in [facility] ID: [id number] able: RN Notified Lab Interpretation (test Abnormal code = 48345-9) [facility]2022-08-23 11:47:00 Test Item Value Reference Range Interpretation Comments POC glucose (test code = 103 mg/dL 65-99 H Ope rator Name: 47161-0) Esmail Quratula in [facility] ID: [id number] able: RN Notified Lab Interpretation (test Abnormal code = 78172-3) [facility]2022-08-23 11:47:00 Test Item Value Reference Range Interpretation Comments POC glucose (test code = 103 mg/dL 65-99 H Ope rator Name: 71913-0) Esmail Quratula in [facility] ID: [id number] able: RN Notified Lab Interpretation (test Abnormal code = 07854-4) [facility]2022-08-23 11:47:00 Test Item Value Reference Range Interpretation Comments POC glucose (test code = 103 mg/dL 65-99 H Ope rator Name: 44710-5) Esmail Quratula in [facility] ID: [id number] able: RN Notified Lab Interpretation (test Abnormal code = 00343-9) [facility]2022-08-23 11:47:00 Test Item Value Reference Range Interpretation Comments POC glucose (test code = 103 mg/dL 65-99 H Ope rator Name: 06505-7) Esmail Quratula in [facility] ID: [id number] able: RN Notified Lab Interpretation (test Abnormal code = 50691-2) [facility]2022-08-23 11:47:00 Test Item Value Reference Range Interpretation Comments POC glucose (test code = 103 mg/dL 65-99 H Ope rator Name: 46368-0) Esmail Quratula in [facility] ID: [id number] able: RN Notified Lab Interpretation (test Abnormal code = 24876-0) [facility]2022-08-23 11:47:00 Test Item Value Reference Range Interpretation Comments POC glucose (test code = 103 mg/dL 65-99 H Ope rator Name: 00232-7) Esmail Quratula in [facility] ID: [id number] able: RN Notified Lab Interpretation (test Abnormal code = 11347-8) [facility]2022-08-23 11:47:00 Test Item Value Reference Range Interpretation Comments POC glucose (test code = 103 mg/dL 65-99 H Ope rator Name: 11570-1) Esmail Quratula in [facility] ID: [id number] able: RN Notified Lab Interpretation (test Abnormal code = 48149-2) [facility]2022-08-23 11:47:00 Test Item Value Reference Range Interpretation Comments POC glucose (test code = 103 mg/dL 65-99 H Ope rator Name: 35040-1) Esmail Quratula in [facility] ID: [id number] able: RN Notified Lab Interpretation (test Abnormal code = 15139-6) [facility]2022-08-23 11:47:00 Test Item Value Reference Range Interpretation Comments POC glucose (test code = 103 mg/dL 65-99 H Ope rator Name: 50805-8) Esmail Quratula in [facility] ID: [id number] able: RN Notified Lab Interpretation (test Abnormal code = 78462-0) [facility]2022-08-23 11:47:00 Test Item Value Reference Range Interpretation Comments POC glucose (test code = 103 mg/dL 65-99 H Ope rator Name: 22196-5) Esmail Quratula in [facility] ID: [id number] able: RN Notified Lab Interpretation (test Abnormal code = 76174-2) [facility]2022-08-23 11:47:00 Test Item Value Reference Range Interpretation Comments POC glucose (test code = 103 mg/dL 65-99 H Ope rator Name: 02851-6) Esmail Quratula in [facility] ID: [id number] able: RN Notified Lab Interpretation (test Abnormal code = 52677-7) [facility]2022-08-23 11:47:00 Test Item Value Reference Range Interpretation Comments POC glucose (test code = 103 mg/dL 65-99 H Ope rator Name: 01118-6) Esmail Quratula in [facility] ID: [id number] able: RN Notified Lab Interpretation (test Abnormal code = 71222-8) [facility]2022-08-23 11:47:00 Test Item Value Reference Range Interpretation Comments POC glucose (test code = 103 mg/dL 65-99 H Ope rator Name: 68426-6) Esmail Quratula in [facility] ID: [id number] able: RN Notified Lab Interpretation (test Abnormal code = 33822-0) [facility]2022-08-23 11:47:00 Test Item Value Reference Range Interpretation Comments POC glucose (test code = 103 mg/dL 65-99 H Ope rator Name: 83307-6) Esmail Quratula in [facility] ID: [id number] able: RN Notified Lab Interpretation (test Abnormal code = 52339-8) [facility]2022-08-23 11:47:00 Test Item Value Reference Range Interpretation Comments POC glucose (test code = 103 mg/dL 65-99 H Ope rator Name: 66785-3) Esmail Quratula in [facility] ID: [id number] able: RN Notified Lab Interpretation (test Abnormal code = 61577-9) [facility]2022-08-23 11:47:00 Test Item Value Reference Range Interpretation Comments POC glucose (test code = 103 mg/dL 65-99 H Ope rator Name: 60922-5) Esmail Quratula in [facility] ID: [id number] able: RN Notified Lab Interpretation (test Abnormal code = 71048-4) [facility]2022-08-23 11:47:00 Test Item Value Reference Range Interpretation Comments POC glucose (test code = 103 mg/dL 65-99 H Ope rator Name: 10929-5) Esmail Quratula in [facility] ID: [id number] able: RN Notified Lab Interpretation (test Abnormal code = 79496-3) [facility]2022-08-23 11:47:00 Test Item Value Reference Range Interpretation Comments POC glucose (test code = 103 mg/dL 65-99 H Ope rator Name: 93153-3) Esmail Quratula in [facility] ID: [id number] able: RN Notified Lab Interpretation (test Abnormal code = 54791-2) [facility]2022-08-23 11:47:00 Test Item Value Reference Range Interpretation Comments POC glucose (test code = 103 mg/dL 65-99 H Ope rator Name: 21696-8) Esmail Quratula in [facility] ID: [id number] able: RN Notified Lab Interpretation (test Abnormal code = 06674-1) [facility]2022-08-23 11:47:00 Test Item Value Reference Range Interpretation Comments POC glucose (test code = 103 mg/dL 65-99 H Ope rator Name: 98872-9) Esmail Quratula in [facility] ID: [id number] able: RN Notified Lab Interpretation (test Abnormal code = 60388-7) [facility]2022-08-23 11:47:00 Test Item Value Reference Range Interpretation Comments POC glucose (test code = 103 mg/dL 65-99 H Ope rator Name: 81721-2) Esmail Quratula in [facility] ID: [id number] able: RN Notified Lab Interpretation (test Abnormal code = 96103-0) [facility]2022-08-23 11:47:00 Test Item Value Reference Range Interpretation Comments POC glucose (test code = 103 mg/dL 65-99 H Ope rator Name: 84281-9) Esmail Quratula in [facility] ID: [id number] able: RN Notified Lab Interpretation (test Abnormal code = 27366-9) [facility]2022-08-23 11:47:00 Test Item Value Reference Range Interpretation Comments POC glucose (test code = 103 mg/dL 65-99 H Ope rator Name: 47615-6) Esmail Quratula in [facility] ID: [id number] able: RN Notified Lab Interpretation (test Abnormal code = 82405-5) [facility]2022-08-23 11:47:00 Test Item Value Reference Range Interpretation Comments POC glucose (test code = 103 mg/dL 65-99 H Ope rator Name: 13844-1) Esmail Quratula in [facility] ID: [id number] able: RN Notified Lab Interpretation (test Abnormal code = 56667-0) [place] [id number] 11:47:00 Test Item Value Reference Range Interpretation Comments POC glucose (test code = 103 mg/dL 65-99 H Ope rator Name: 25305-4) [facility] [place] in [facility] ID: [id number] able: RN Notified Lab Interpretation (test Abnormal code = 95087-7) [facility] Pre/Post [id number] 20:29:23 Test Item Value Reference Range Interpretation Comments Ventricular rate (test 84 code = 253) Atrial rate (test code = 84 255) WV interval (test code = 172 266) QRSD [...] Emery MD (2064) on 03/01/2022 3:29:18 PM [facility] Pre/Post [id number] 20:29:23 Test Item Value Reference Range Interpretation Comments Ventricular rate (test code = 253) Atrial rate (test code = 255) WV interval (test code = 266) QRSD interval [...] Emery MD (2064) on 03/01/2022 3:29:18 PM [facility] Pre/Post [id number] 20:29:23 Test Item Value Reference Range Interpretation Comments Ventricular rate (test code = 253) Atrial rate (test code = 255) WV interval (test code = 266) QRSD interval [...] Emery MD (2064) on 03/01/2022 3:29:18 PM [facility] Pre/Post [id number] 20:29:23 Test Item Value Reference Range Interpretation Comments Ventricular rate (test code = 253) Atrial rate (test code = 255) WV interval (test code = 266) QRSD interval [...] Emery MD (2064) on 03/01/2022 3:29:18 PM [facility] Pre/Post [id number] 20:29:23 Test Item Value Reference Range Interpretation Comments Ventricular rate (test code = 253) Atrial rate (test code = 255) WV interval (test code = 266) QRSD interval [...] Emery MD (2064) on 03/01/2022 3:29:18 PM [facility] Pre/Post [id number] 20:29:23 Test Item Value Reference Range Interpretation Comments Ventricular rate (test code = 253) Atrial rate (test code = 255) WV interval (test code = 266) QRSD interval [...] Emery MD (2064) on 03/01/2022 3:29:18 PM [facility] Pre/Post [id number] 20:29:23 Test Item Value Reference Range Interpretation Comments Ventricular rate (test code = 253) Atrial rate (test code = 255) WV interval (test code = 266) QRSD interval [...] Emery MD (2064) on 03/01/2022 3:29:18 PM [facility] Pre/Post [id number] 20:29:23 Test Item Value Reference Range Interpretation Comments Ventricular rate (test code = 253) Atrial rate (test code = 255) WV interval (test code = 266) QRSD interval [...] Emery MD (2064) on 03/01/2022 3:29:18 PM [facility] Pre/Post [id number] 20:29:23 Test Item Value Reference Range Interpretation Comments Ventricular rate (test code = 253) Atrial rate (test code = 255) WV interval (test code = 266) QRSD interval [...] Emery MD (2064) on 03/01/2022 3:29:18 PM [facility] Pre/Post [id number] 20:29:23 Test Item Value Reference Range Interpretation Comments Ventricular rate (test code = 253) Atrial rate (test code = 255) WV interval (test code = 266) QRSD interval [...] Emery MD (2064) on 03/01/2022 3:29:18 PM [facility] Pre/Post [id number] 20:29:23 Test Item Value Reference Range Interpretation Comments Ventricular rate (test code = 253) Atrial rate (test code = 255) WV interval (test code = 266) QRSD interval [...] Emery MD (2064) on 03/01/2022 3:29:18 PM [facility] Pre/Post [id number] 20:29:23 Test Item Value Reference Range Interpretation Comments Ventricular rate (test code = 253) Atrial rate (test code = 255) WV interval (test code = 266) QRSD interval [...] Emery MD (2064) on 03/01/2022 3:29:18 PM [facility] Pre/Post [id number] 20:29:23 Test Item Value Reference Range Interpretation Comments Ventricular rate (test code = 253) Atrial rate (test code = 255) WV interval (test code = 266) QRSD interval [...] Emery MD (2064) on 03/01/2022 3:29:18 PM [facility] Pre/Post [id number] 20:29:23 Test Item Value Reference Range Interpretation Comments Ventricular rate (test code = 253) Atrial rate (test code = 255) WV interval (test code = 266) QRSD interval [...] Emery MD (2064) on 03/01/2022 3:29:18 PM [facility] Pre/Post [id number] 20:29:23 Test Item Value Reference Range Interpretation Comments Ventricular rate (test code = 253) Atrial rate (test code = 255) WV interval (test code = 266) QRSD interval [...] Emery MD (2064) on 03/01/2022 3:29:18 PM [facility] Pre/Post [id number] 20:29:23 Test Item Value Reference Range Interpretation Comments Ventricular rate (test code = 253) Atrial rate (test code = 255) WV interval (test code = 266) QRSD interval [...] Emery MD (2064) on 03/01/2022 3:29:18 PM [facility] Pre/Post [id number] 20:29:23 Test Item Value Reference Range Interpretation Comments Ventricular rate (test code = 253) Atrial rate (test code = 255) WV interval (test code = 266) QRSD interval [...] Emery MD (2064) on 03/01/2022 3:29:18 PM [facility] Pre/Post [id number] 20:29:23 Test Item Value Reference Range Interpretation Comments Ventricular rate (test 84 code = 253) Atrial rate (test code = 84 255) WV interval (test code = 172 266) QRSD [...] Emery MD (2064) on 03/01/2022 3:29:18 PM [facility] Pre/Post [id number] 20:29:23 Test Item Value Reference Range Interpretation Comments Ventricular rate (test 84 code = 253) Atrial rate (test code = 84 255) WV interval (test code = 172 266) QRSD [...] Emery MD (2064) on 03/01/2022 3:29:18 PM [facility] Pre/Post [id number] 20:29:23 Test Item Value Reference Range Interpretation Comments Ventricular rate (test 84 code = 253) Atrial rate (test code = 84 255) WV interval (test code = 172 266) QRSD [...] Emery MD (2064) on 03/01/2022 3:29:18 PM [facility] Pre/Post [id number] 20:29:23 Test Item Value Reference Range Interpretation Comments Ventricular rate (test 84 code = 253) Atrial rate (test code = 84 255) WV interval (test code = 172 266) QRSD [...] Emery MD (2064) on 03/01/2022 3:29:18 PM [facility] Pre/Post [id number] 20:29:23 Test Item Value Reference Range Interpretation Comments Ventricular rate (test 84 code = 253) Atrial rate (test code = 84 255) WV interval (test code = 172 266) QRSD [...] Emery MD (2064) on 03/01/2022 3:29:18 PM [facility] Pre/Post [id number] 20:29:23 Test Item Value Reference Range Interpretation Comments Ventricular rate (test 84 code = 253) Atrial rate (test code = 84 255) WV interval (test code = 172 266) QRSD [...] Emery MD (2064) on 03/01/2022 3:29:18 PM [facility] Pre/Post [id number] 20:29:23 Test Item Value Reference Range Interpretation Comments Ventricular rate (test 84 code = 253) Atrial rate (test code = 84 255) WV interval (test code = 172 266) QRSD [...] Emery MD (2064) on 03/01/2022 3:29:18 PM [facility] Pre/Post [id number] 20:29:23 Test Item Value Reference Range Interpretation Comments Ventricular rate (test 84 code = 253) Atrial rate (test code = 84 255) WV interval (test code = 172 266) QRSD [...] Emery MD (2064) on 03/01/2022 3:29:18 PM [facility] Pre/Post [id number] 20:29:23 Test Item Value Reference Range Interpretation Comments Ventricular rate (test 84 code = 253) Atrial rate (test code = 84 255) WV interval (test code = 172 266) QRSD [...] Emery MD ([id number]) on 03/01/2022 3:29:18 PM [facility] Pre/Post [id number] 20:29:23 Test Item Value Reference Range Interpretation Comments Ventricular rate (test code = 253) Atrial rate (test code = 255) WV interval (test code = 266) QRSD interval [...] Emery MD ([id number]) on 03/01/2022 3:29:18 [facility] [Presence] in Respiratory specimen by TENZIN with probe [id number] 18:27:20 Test Item Value Reference Range Interpretation Comments SARS-CoV-2 (COVID-19) RNA Not detected [Presence] in Respiratory specimen by TENZIN with probe detection (test code = 90678-3) Whether patient is employed in a Unknown healthcare setting (test code = 73220-0) Whether the patient has symptoms Unknown related to condition of interest (test code = 67238-4) Whether the patient was Unknown hospitalized for condition of interest (test code = 52405-0) Whether the patient was admitted Unknown to intensive care unit (ICU) for condition of interest (test code = 16930-2) Whether patient resides in a Unknown congregate care setting (test code = 02324-4) status (test code = Unknown 31352-6) Date and time of symptom onset Unknown (test code = 12936-5) [facility] RNA [Presence] in Respiratory specimen by TENZIN with probe [id number] 01:00:31 Test Item Value Reference Range Interpretation Comments SARS-CoV-2 (COVID-19) RNA Not detected [Presence] in Respiratory specimen by TENZIN with probe detection (test code = 77991-5) Whether patient is employed in a Unknown healthcare setting (test code = 12196-0) Whether the patient has symptoms Unknown related to condition of interest (test code = 56524-1) Whether the patient was Unknown hospitalized for condition of interest (test code = 25202-5) Whether the patient was admitted Unknown to intensive care unit (ICU) for condition of interest (test code = 40045-4) Whether patient resides in a Unknown congregate care setting (test code = 62098-5) status (test code = Unknown 09332-3) Date and time of symptom onset Unknown (test code = 56235-0) [facility] + B and SARS CoV + SARS CoV 2 Ag panel, [place], upper respiratory [id number] 10:40:00 Test Item Value Reference Range Interpretation Comments RAPID SARS COV (test code = RAPID negative SARS COV) RAPID FLU A (test code = RAPID FLU negative A) RAPID FLU B (test code = RAPID FLU negative B) [facility] - Serum or [id number] 06:34:00 Test Item Value Reference Range Interpretation Comments cholesterol level (test code = 169 mg/dL 150-200 cholesterol level) triglycerides level (test code = 93 mg/dL <150 triglycerides level) HDL cholesterol (test code = HDL 52 mg/dL >55 L cholesterol) LDL cholesterol direct (test code = 108 mg/dL <100 H LDL cholesterol direct) cholesterol risk ratio (test code = 3.250 cholesterol risk ratio) [facility]/volume] in [id number] 00:00:00 Test Item Value Reference Range Interpretation Comments Hemoglobin A1c [Mass/volume] in Blood 5.3 % 4.0-6.0 (test code = 99804-6) [facility] [Units/volume] in Serum or [id number] 00:00:00 Test Item Value Reference Range Interpretation Comments Thyrotropin [Units/volume] in 0.44 uIU/mL 0.36-3.74 Serum or Plasma (test code = 3016-3) [facility]
[2022-11-06] MEDS ORDERED: Phenylephrine HCl 10 MG/ML 1 ML VIAL ONE (11:44)
--- NOTE | 2022-11-06 12:00 | ER ---
Nurse's Notes [facility] Name: Francesco Avelar Age: 27 yrs Sex: Male : 1995 Arrival Date: 11/06/2022 Time: 11:23 Bed 12 Private MD: Diagnosis: Priapism, unspecified Presentation: 11/06 11:32 Chief complaint: Erection since 0700 today. Coronavirus screen: At this time, the hb client does not indicate any symptoms associated with coronavirus-19. Ebola Screen: No symptoms or risks identified at this time. Initial Sepsis Screen: Does the patient meet any 2 criteria? No. Patient's initial sepsis screen is negative. Does the patient have a suspected source of infection? No. Patient's initial sepsis screen is negative. Risk Assessment: Do you want to hurt yourself or someone else? Patient reports no desire to harm self or others. Onset of symptoms was November 06, 2022. 11:32 Method Of Arrival: Ambulatory 11:32 Acuity: MCKENZIE 2 hb Historical: - Allergies: 11:33 Imitrex; hb - Home Meds: 11:33 terbutaline Oral [Active]; hb - PMHx: 11:33 adhd; Asthma; Bipolar disorder; priapism; hb - PSHx: 11:33 L5 S1 laminectomy; hb - Immunization history:: Adult Immunizations up to date. - Social history:: Smoking status: Patient denies any tobacco usage or history of. Screenin:55 [facility] ED Fall Risk Assessment (Adult) History of falling in the last 3 months, iw including since admission No falls in past 3 months (0 pts). Abuse screen: Denies threats or abuse. Denies injuries from another. Nutritional screening: No deficits noted. Tuberculosis screening: No symptoms or risk factors identified. Assessment: 11:50 General: Appears uncomfortable, Behavior is calm, cooperative. Pain: Complains of pain iw in penis. Neuro: Level of Consciousness is awake, alert, obeys commands, Oriented to person, place, time, situation, Moves all extremities. Full function. Cardiovascular: Patient's skin is warm and dry. Respiratory: Respiratory effort is even, unlabored, Respiratory pattern is regular, symmetrical. GI: Abdomen is non-distended. : priapism noted. Derm: Skin is intact, is healthy with good turgor. Musculoskeletal: Range of motion: intact in all extremities. Vital Signs: 11:32 BP 129 / 88; Pulse 113; Resp 16; Temp 98(TE); Pulse Ox 96% on R/A; Weight 100.24 kg; hb Height 5 ft. 11 in. ; Pain 8/10; 11:55 BP 148 / 98; Pulse 97; Resp 16; Pulse Ox 98% on R/A; iw 11:32 Body Mass Index 30.82 (100.24 kg, 180.34 cm) hb 11:32 Pain Scale: Adult hb ED Course: 11:24 Patient arrived in ED. am2 11:27 Lang Lance, RN is Primary Nurse. bp 11:33 Triage completed. hb 11:33 Nati Keating FNP-C is PHCP. snw 11:33 Arm band placed on. hb 11:37 Baljeet Garsia DO is Attending Physician. ms3 11:55 Marlin Douglas, SHELLEY is Primary Nurse. iw 11:55 No provider procedures requiring assistance completed. Patient did not have IV access iw during this emergency room visit. 11:56 Patient has correct armband on for positive identification. iw 11:59 Minesh Vivas MD is Referral Physician. ms3 Administered Medications: 12:01 Drug: Phenylephrine IV 0.25 mg {Note: administered SQ into shaft of penis by Dr. Sun funez .} Route: IV; Rate: calculated rate; Site: Other; 12:02 Follow up: IV Status: Completed infusion iw Medication: 11:55 VIS not applicable for this client. iw Outcome: 12:00 Discharge ordered by . ms3 12:13 Patient left the ED. iw Signatures: Nati Keating FNP-C ALLIGATOR TRAPPER-Csnw Marlin Douglas, SHELLEY ROSA iw Joie Higgins RN RN Eleanor Gallegos am2 Lang Lance, SHELLEY ROSA bp Baljeet Garsia DO DO ms3
--- NOTE | 2022-11-06 12:00 | EDPHYS ---
Physician Documentation [facility] Name: Francesco Avelar Age: 27 yrs Sex: Male : 1995 Arrival Date: 11/06/2022 Time: 11:23 Bed 12 Private MD: ED Physician Baljeet Garsia HPI: 11/06 12:00 This 27 yrs old Male presents to ER via Ambulatory with complaints of Penile ms3 Pain. 12:00 27-year-old male with past medical history of ADHD, asthma, bipolar, priapism presents ms3 for priapism that began at 7 AM this morning. Patient states he is having 8/10 throbbing penile pain. Patient denies alleviating or inciting factors.. Historical: - Allergies: 11:33 Imitrex; hb - Home Meds: 11:33 terbutaline Oral [Active]; hb - PMHx: 11:33 adhd; Asthma; Bipolar disorder; priapism; hb - PSHx: 11:33 L5 S1 laminectomy; hb - Immunization history:: Adult Immunizations up to date. - Social history:: Smoking status: Patient denies any tobacco usage or history of. ROS: 12:00 Constitutional: Negative for fever, and chills. Neck: Negative for injury, pain, and ms3 swelling, Cardiovascular: Negative for chest pain, and palpitations. Respiratory: Negative for shortness of breath, cough, wheezing, and pleuritic chest pain, Abdomen/GI: Negative for abdominal pain, nausea, vomiting, diarrhea, and constipation. 12:00 : Positive for penile pain. 12:00 All other systems are negative. Exam: 12:00 Constitutional: This is a well developed, well nourished patient who is awake, alert, ms3 and in no acute distress. Head/Face: Normocephalic, atraumatic. Neck: Trachea midline, no cervical lymphadenopathy. Supple, full range of motion without nuchal rigidity, or vertebral point tenderness. No Meningismus. Chest/axilla: Normal chest wall appearance and motion. Nontender with no deformity. Cardiovascular: Regular rate and rhythm with a normal S1 and S2. No gallops, murmurs, or rubs. Normal PMI, no JVD. No pulse deficits. Respiratory: Lungs have equal breath sounds bilaterally, clear to auscultation and percussion. No rales, rhonchi or wheezes noted. No increased work of breathing, no retractions or nasal flaring. Abdomen/GI: Soft, non-tender, with normal bowel sounds. No distension or tympany. No guarding or rebound. No evidence of tenderness throughout. 12:00 : Male external genitalia: Patient is not circumisioned. Priapism present. Vital Signs: 11:32 BP 129 / 88; Pulse 113; Resp 16; Temp 98(TE); Pulse Ox 96% on R/A; Weight 100.24 kg; hb Height 5 ft. 11 in. ; Pain 8/10; 11:55 BP 148 / 98; Pulse 97; Resp 16; Pulse Ox 98% on R/A; iw 11:32 Body Mass Index 30.82 (100.24 kg, 180.34 cm) hb 11:32 Pain Scale: Adult hb MDM: 11:36 Patient medically screened. snw 12:00 Differential diagnosis: Priapism. Data reviewed: vital signs, nurses notes, and as a ms3 result, I will discharge patient. I considered the following discharge prescriptions or medication management in the emergency department Medications were administered in the Emergency Department. See MAR. Care significantly affected by the following chronic conditions: ADHD, asthma, bipolar, priapism. Counseling: I had a detailed discussion with the patient and/or guardian regarding: the historical points, exam findings, and any diagnostic results supporting the discharge/admit diagnosis, the need for outpatient follow up, to return to the emergency department if symptoms worsen or persist or if there are any questions or concerns that arise at home. Response to treatment: the patient's symptoms have resolved after treatment, the patient's condition has returned to base line, the patient is now symptom free, and as a result, I will discharge patient. Special discussion: I discussed with the patient/guardian in detail that at this point there is no indication for admission to the hospital. It is understood, however, that if the symptoms persist or worsen the patient needs to return immediately for re-evaluation. Administered Medications: 12:01 Drug: Phenylephrine IV 0.25 mg {Note: administered SQ into shaft of penis by Dr. Sun funez .} Route: IV; Rate: calculated rate; Site: Other; 12:02 Follow up: IV Status: Completed infusion iw Disposition Summary: 11/06/22 12:00 Discharge Ordered Location: Home ms3 Condition: Stable ms3 Diagnosis - Priapism, unspecified ms3 Followup: ms3 - With: Minesh Vivas MD - When: 2 - 3 days - Reason: Recheck today's complaints Discharge Instructions: - Discharge Summary Sheet ms3 - Priapism ms3 Forms: - Medication Reconciliation Form ms3 - Thank You Letter ms3 - Antibiotic Education ms3 - Prescription Opioid Use ms3 Signatures: Nati Keating FNP-C FNP-Csnw Marlin Douglas RN RN iw Joie Higgins RN RN Baljeet Garsia, DO ms3 Corrections: (The following items were deleted from the chart) 12:01 12:00 27-year-old male with past medical history of ADHD, asthma, bipolar, priapism ms3 presents for priapism that began. ms3
[2022-11-06 12:17] VITALS: TEMP 98
[2022-11-06 12:18] VITALS: BP 148/98; O2SAT 98
== END 2022-11-06 12:13 | disposition home or self-care (01) ==
LOC: ER 11:23
DX: N48.30 Priapism, unspecified (principal)
CPT/HCPCS: 96374; 99283; J2370

== ENCOUNTER 2022-11-12 05:49 | Emergency (ER) | payer BC, OTHER ==
--- OUTSIDE RECORDS SUMMARY | 2022-11-12 05:59 | XMS REPORT | Continuity of Care Document ---
:1995 Author Organization [facility] t Address [address] [facility] [place]. [address] [place] [address] Support Name Relationship Address Phone BALA CLARK Unavailable [address] [phone] [place] [address] GREGORY DUMONT Unavailable [address] [phone] [place] [address] PRISCILA MAGANA MD Emergency Provider [address] [place] [address] PHYSICIAN, NO Primary Care Physician Unavailable Unavailab CLAIR Art Next of Kin [address] [place] [address] MD PRISCILA MAGANA Emergency Provider [address] [place] [address] MD [facility] Primary Care Physician [address] [place] [address] MD CELSA MUNGUIA Emergency Provider [address] [place] [address] MD BARBARA VELAZQUEZ Emergency Provider [address] [place] [address] MD SHI ANAYA Emergency Provider [address] [place] [address] DO ABRAHAM MCCRACKEN Admitting Provider [address] [place] [address] MD HARRISON RICO Emergency Provider [address] [place] [address] MD ALEXA TORRES Emergency Provider [address] [place] [address] MD JASON DUNAWAY Emergency Provider [address] [place] [address] [phone] [place] [address] Care Team Providers Name Role Phone Ronnell Perry MD Primary Care Physician Ronnell Perry Attending Clinician Unavailable NAHUN KHANNA Attending Clinician Unavailable MAYNOR ROMERO Attending Clinician Unavailable BRENDA MALDONADO Attending Clinician Unavailable Tatiana Xavier MA Attending Clinician Unavailable Maynor Romero MD Attending Clinician Rich Salgado Attending Clinician Neymar Barron Attending Clinician Unavailable Ronnell Perry Attending Clinician Unavailable Zungracya_F Attending Clinician Unavailable [...] Clinician Unavailable SERGEY THAKKAR Attending Clinician Unavailable IRUKE, ZBIGNIEW O Attending Clinician Unavailable Zuniga_F Admitting Clinician Unavailable Ronnell Perry Admitting Clinician Unavailable Duarte_Sundar Admitting Clinician Unavailable MAYNOR ROMERO Admitting Clinician Unavailable BASILIO DIALLO Admitting Clinician Unavailable JONA Admitting Clinician Unavailable Calvin_Calvin Admitting Clinician Unavailable Abraham Mccracken Admitting Clinician Unavailable Zady_S Admitting Clinician Unavailable Denny_Chinyere Admitting Clinician Unavailable Payers Payer Name Policy Type Policy Number Effective Date Expiration Date S ource [place] [id number] 2014 (PPO) 00:00:00 [facility] [id number] 2019 [place] 00:00:00 ([place] [id number] [place]) [place] [id number] - [id number] FOR[facility]LY [facility] Problems Condition Condition Condition Status Onset [...] Added automatic ally from request for surgery [id number] Priapism Priapism Disease Active Metho di 8-17 [...] Imitrex Allergy Active [facility] Group sumatrip sumatrip Active Unknown Commo n porras porras [facility] Family History Family Member Diagnosis Comments Start Date Stop Date Source Natural father [facility] mother Fibromyalgia [facility] Social History Social Habit Start Date Stop Date Quantity Comments Source Gender identity [facility] Sexual orientation [facility] History of Tobacco Current Smoker [facility] Alcohol intake 2022-03-03 2022-03-03 Current drinker [facility] 00:00:00 00:00:00 of alcohol Hospital (finding) History of Social 2022-03-03 2022-03-[address] function 00:00:00 00:00:00 Hospital Tobacco use and 2022-03-01 2022-03-01 Smokeless [facility] exposure 00:00:00 00:00:00 tobacco non-user Hospital Alcohol Comment 2022-03-01 2022-03-01 EVERY OTHER Methodis t 00:00:00 00:00:00 [facility] Hospital Sex Assigned At [birth year] [facility] 00:00:00 00:00:00 Hospital Smoking Status Start Date Stop Date Source Light Tobacco Smoker [facility] Current Smoker 2022-05-19 00:00:00 [facility] Medications Ordered Filled Start Stop Current Ordering [...] 10 other day. l on inhaler acetaminoph No 1{tbl} Q6H Take 1 Methodi [...] up to 10 days .acute pain. traMADoL 28278 50mg Q6H Take 1 Metho di (ULTRAM) 50 8-19 08-25 tablet (50 s t mg tablet 00:00: 04:59 mg total) Ho spita 00 :00 by mouth l every 6 (six) hours as needed for moderate pain for up to 5 days .acute pain. traMADoL 2021- 44312 50mg Q6H Take 1 Metho di (ULTRAM) 50 8-19 08-25 tablet (50 s t mg tablet 00:00: 04:59 mg total) [facility] spita 00 :00 by mouth l every 6 (six) hours as needed for moderate pain for up to 5 days .acute pain. traMADoL 57576 50mg Q6H Take 1 Metho di (ULTRAM) 50 8-19 08-25 tablet (50 s t mg tablet 00:00: 04:59 mg total) [facility] spita 00 :00 by mouth l every 6 (six) hours as needed for moderate pain for up to 5 days .acute pain. traMADoL 29767 50mg Q6H Take 1 Metho di (ULTRAM) 50 8-19 08-25 tablet (50 s t mg tablet 00:00: 04:59 mg total) Ho spita 00 :00 by mouth l every 6 (six) hours as needed for moderate pain for up to 5 days .acute pain. traMADoL 2021- 79075 50mg Q6H Take 1 Metho di (ULTRAM) 50 8-19 08-25 tablet (50 s t mg tablet 00:00: 04:59 mg total) Ho spita 00 :00 by mouth l every 6 (six) hours as needed for moderate pain for up to 5 days .acute pain. traMADoL 2021- 70401 50mg Q6H Take 1 Metho di (ULTRAM) [...] up to 5 days .acute pain. traMADoL 02497 50mg Q6H Take 1 Metho di (ULTRAM) 50 8-19 08-25 tablet (50 s t mg tablet 00:00: 04:59 mg total) Ho spita 00 :00 by mouth l every 6 (six) hours as needed for moderate pain for up to 5 days .acute pain. traMADoL 30394 50mg Q6H Take 1 Metho di (ULTRAM) 50 8-19 08-25 tablet (50 s t mg tablet 00:00: 04:59 mg total) Ho spita 00 :00 by mouth l every 6 (six) hours as needed for moderate pain for up to 5 days .acute pain. traMADoL 04807 50mg Q6H Take 1 Metho di (ULTRAM) 50 8-19 08-25 tablet (50 s t mg tablet 00:00: 04:59 mg total) Ho spita 00 :00 by mouth l every 6 (six) hours as needed for moderate pain for up to 5 days .acute pain. traMADoL 10355 50mg Q6H Take 1 Metho di (ULTRAM) 50 8-19 08-25 tablet (50 s t mg tablet 00:00: 04:59 mg total) Ho spita 00 :00 by mouth l every 6 (six) hours as needed for moderate pain for up to 5 days .acute pain. traMADoL 75463 50mg Q6H Take 1 Metho di (ULTRAM) 50 8-19 08-25 tablet (50 s t mg tablet 00:00: 04:59 mg total) Ho spita 00 :00 by mouth l every 6 (six) hours as needed for moderate pain for up to 5 days .acute pain. traMADoL 2021- 51831 50mg Q6H Take 1 Metho di (ULTRAM) 50 8-19 08-25 tablet (50 s t mg tablet 00:00: 04:59 mg total) Ho spita 00 :00 by mouth l every 6 (six) hours as needed for moderate pain for up to 5 days .acute pain. traMADoL 2021- 83063 50mg Q6H Take 1 Metho di (ULTRAM) [...] up to 5 days .acute pain. traMADoL 16873 50mg Q6H Take 1 Metho di (ULTRAM) [...] 5 days .acute pain. tra[place]ADoL 2021- [place] [address] 50mg Q6H Take 1 Metho di (ULTRAM) 50 8-19 08-25 tablet (50 s t mg tablet 00:00: 04:59 mg total) Ho spita 00 :00 by mouth l every 6 (six) hours as needed for moderate pain for up to 5 days .acute pain. traMADoL 2021- No 194[address] 50mg Q6H Take 1 Metho di (ULTRAM) 50 8-19 08-25 tablet (50 s t mg tablet 00:00: 04:59 mg total) Ho spita 00 :00 by mouth l every 6 (six) hours as needed for moderate pain for up to 5 days .acute pain. tra[place]AD[place] 2021- [place] [address] 50mg Q6H Take 1 Metho di (ULTRAM) [...] pain) for up to 7 days. ibuprofen 202- No 600mg Q6H Take 1 Meth [...] days. Abilify 2021- No INJECT ONE [facility] [place] 11-25 (1) UNIT [facility] 400 mg 00:00: 00:00 INTO THE Hospit a suspension, 00 :00 MUSCLE l extended ONCE A rel syring MONTH Abilify 2021- No INJECT ONE Met h[facility] Maint[place] 11-25-17 (1) UNIT st 400 mg 00:00: 00:00 [...] MRNA 2020-10-16 Completed Meth odist VACCINATION 00:00:00 [facility] PFIZER COVID-19 MRNA 2020-10-16 Completed Meth odist VACCINATION 00:00:00 [facility] COVID-19 MRNA 2020-10-16 Completed Meth odist VACCINATION 00:00:00 [facility] PFIZER COVID-19 MRNA 2020-10-16 Completed Meth odist VACCINATION 00:00:00 [facility] PFIZER COVID-19 MRNA 2020-10-16 Completed Meth odist VACCINATION 00:00:00 [facility] PFIZER COVID-19 MRNA 2020-10-16 Completed Meth odist VACCINATION 00:00:00 [facility] PFIZER COVID-19 MRNA 2020-10-16 Completed Meth odist VACCINATION 00:00:00 [facility] COVID-19 MRNA 2020-10-16 Completed Meth odist VACCINATION 00:00:00 [facility] COVID-19 MRNA 2020-10-16 Completed Meth odist VACCINATION 00:00:00 [facility] COVID-19 MRNA 2020-10-16 Completed Meth odist VACCINATION 00:00:00 [facility] COVID-19 MRNA 2020-10-16 Completed Meth odist VACCINATION 00:00:00 [facility] PFIZER COVID-19 MRNA 2020-10-16 Completed Meth odist VACCINATION 00:00:00 Hospital P[facility] COVID-19 MRNA 2020-10-16 Completed Meth odist VACCINATION 00:00:00 Hospital PFIZER COVID-19 MRNA 2020-10-16 Completed Meth odist VACCINATION 00:00:00 [facility] PFIZER COVID-19 MRNA 2020-10-16 Completed Meth odist VACCINATION 00:00:00 [facility] PFIZER COVID-19 MRNA 2020-10-16 Completed Meth odist VACCINATION 00:00:00 [facility] PFIZER COVID-19 MRNA 2020-10-16 Completed Meth odist VACCINATION 00:00:00 [facility] PFIZER COVID-19 MRNA 2020-10-16 Completed Meth odist VACCINATION 00:00:00 [facility] PFIZER COVID-19 MRNA 2020-10-16 Completed Meth odist VACCINATION 00:00:00 [facility] PFIZER COVID-19 MRNA 2020-10-16 Completed Meth odist VACCINATION 00:00:00 [facility] PFIZER COVID-19 MRNA 2020-10-16 Completed Meth odist VACCINATION 00:00:00 [facility] PFIZER COVID-19 MRNA 2020-10-16 Completed Meth odist VACCINATION 00:00:00 [facility] PFIZER COVID-19 MRNA 2020-10-16 Completed Meth odist VACCINATION 00:00:00 [facility] PFIZER COVID-19 MRNA 2020-10-16 Completed Meth odist VACCINATION 00:00:00 [facility] PFIZER COVID-19 MRNA 2020-10-16 Completed Meth odist VACCINATION 00:00:00 [facility] PFIZER COVID-19 MRNA 2020-10-16 Completed Meth odist VACCINATION 00:00:00 [facility] PFIZER COVID-19 MRNA 2020-10-16 Completed Meth odist VACCINATION 00:00:00 [facility] PFIZER COVID-19 MRNA 2020-10-16 Completed Meth odist VACCINATION 00:00:00 [facility] PFIZER COVID-19 MRNA 2020-09-25 Completed Meth odist VACCINATION 00:00:00 [facility] PFIZ[facility] COVID-19 MRNA 2020-09-25 Completed Meth odist VACCINATION 00:00:00 [facility] PFIZER COVID-19 MRNA 2020-09-25 Completed Meth odist VACCINATION 00:00:00 [facility] PFIZER COVID-19 MRNA 2020-09-25 Completed Meth odist VACCINATION 00:00:00 [facility] PFIZER COVID-19 MRNA 2020-09-25 Completed Meth odist VACCINATION 00:00:00 [facility] PFIZER COVID-19 MRNA 2020-09-25 Completed Meth odist VACCINATION 00:00:00 Hospital PFIZER COVID-19 MRNA 2020-09-25 Completed Meth odist VACCINATION 00:00:00 [facility] PFIZER COVID-19 MRNA 2020-09-25 Completed Meth odist VACCINATION 00:00:00 [facility] PFIZER COVID-19 MRNA 2020-09-25 Completed Meth odist VACCINATION 00:00:00 [facility] PFIZER COVID-19 MRNA 2020-09-25 Completed Meth odist VACCINATION 00:00:00 [facility] PFIZER COVID-19 MRNA 2020-09-25 Completed Meth odist VACCINATION 00:00:00 [facility] PFIZER COVID-19 MRNA 2020-09-25 Completed Meth odist VACCINATION 00:00:00 [facility] PFIZER COVID-19 MRNA 2020-09-25 Completed Meth odist VACCINATION 00:00:00 [facility] PFIZER COVID-19 MRNA 2020-09-25 Completed Meth odist VACCINATION 00:00:00 [facility] PFIZER COVID-19 MRNA 2020-09-25 Completed Meth odist VACCINATION 00:00:00 [facility] PFIZER COVID-19 MRNA 2020-09-25 Completed Meth odist VACCINATION 00:00:00 [facility] PFIZER COVID-19 MRNA 2020-09-25 Completed Meth odist VACCINATION 00:00:00 [facility] PFIZER COVID-19 MRNA 2020-09-25 Completed Meth odist VACCINATION 00:00:00 [facility] PFIZER COVID-19 MRNA 2020-09-25 Completed Meth odist VACCINATION 00:00:00 [facility] PFIZER COVID-19 MRNA 2020-09-25 Completed Meth odist VACCINATION 00:00:00 [facility] PFIZER COVID-19 MRNA 2020-09-25 Completed Meth odist VACCINATION 00:00:00 [facility] PFIZER COVID-19 MRNA 2020-09-25 Completed Meth odist VACCINATION 00:00:00 [facility] PFIZER COVID-19 MRNA 2020-09-25 Completed Meth odist VACCINATION 00:00:00 [facility] PFIZER COVID-19 MRNA 2020-09-25 Completed Meth odist VACCINATION 00:00:00 [facility] PFIZER COVID-19 MRNA 2020-09-25 Completed Meth odist VACCINATION 00:00:00 [facility] PFIZER COVID-19 MRNA 2020-09-25 Completed Meth odist VACCINATION 00:00:00 [facility] PFIZER COVID-19 MRNA 2020-09-25 Completed Meth odist VACCINATION 00:00:00 [facility] PFIZER COVID-19 MRNA 2020-09-25 Completed Meth odist VACCINATION 00:00:00 Hospital Vital Signs Vital Name Observation Time Observation Value Comments Source BP Diastolic 2022-06-25 00:00:00 84 mm[Hg] [facility] Height 2022-06-25 00:00:00 71 [in_i] [facility] BMI (Body Mass 2022-06-25 00:00:00 33.5 kg/m2 [facility] BP Systolic 2022-06-25 00:00:00 133 mm[Hg] [facility] Body Weight 2022-06-25 00:00:00 3848 [oz_av] [facility] BP Diastolic 2022-06-21 00:00:00 73 mm[facility]Hg[facility] Height 2022-06-21 00:00:00 71 [in_i] [facility] BMI (Body Mass 2022-06-21 00:00:00 34.4 kg/m2 [facility] BP Systolic 2022-06-21 00:00:00 112 mm[Hg] [facility] Body Weight 2022-06-21 00:00:00 3942 [oz_av] [facility] height 2022-05-19 10:30:00 71 [in_i] [facility] weight 2022-05-19 10:30:00 254.6 [lb_av] [facility] temperature 2022-05-19 10:30:00 97.6 [degF] [facility] bmi 2022-05-19 10:30:00 35.51 kg/m2 [facility] oximetry 2022-05-19 10:30:00 98 % [facility] respiratory rate 2022-05-19 10:30:00 18 /min [facility] blood pressure 2022-05-19 10:30:00 35 mm[Hg] [facility] blood pressure 2022-05-19 10:30:00 78 mm[Hg] [facility] BP Diastolic 2022-03-09 00:00:00 77 mm[Hg] [facility] Height 2022-03-09 00:00:00 71 [in_i] [facility] BMI (Body Mass 2022-03-09 00:00:00 35.6 kg/m2 [facility] BP Systolic 2022-03-09 00:00:00 122 mm[Hg] [facility] Body Weight 2022-03-09 00:00:00 4078.4 [oz_av] [facility] BP Diastolic 2021-11-06 00:00:00 83 mm[Hg] [facility] Height 2021-11-06 00:00:00 71 [in_i] [facility] BMI (Body Mass 2021-11-06 00:00:00 35 kg/m2 [facility] BP Systolic 2021-11-06 00:00:00 127 mm[Hg] [facility] Body Weight 2021-11-06 00:00:00 4020 [oz_av] [facility] Height 2021-09-14 00:00:00 71 [in_i] [facility] BMI (Body Mass 2021-09-14 00:00:00 34.6 kg/m2 [facility] Body Weight 2021-09-14 00:00:00 3968 [oz_av] [facility] BP Diastolic 2021-03-26 00:00:00 75 mm[Hg] [facility] Height 2021-03-26 00:00:00 71 [in_i] [facility] BMI (Body Mass 2021-03-26 00:00:00 31.1 kg/m2 [facility] BP Systolic 2021-03-26 00:00:00 118 mm[Hg] [facility] Body Weight 2021-03-26 00:00:00 3569 [oz_av] [facility] BP Diastolic 2021-03-10 00:00:00 69 mm[Hg] [facility] Height 2021-03-10 00:00:00 71 [in_i] [facility] BMI (Body Mass 2021-03-10 00:00:00 30.8 kg/m2 [facility] BP Systolic 2021-03-10 00:00:00 111 mm[Hg] [facility] Body Weight 2021-03-10 00:00:00 3529 [oz_av] [facility] BP Diastolic 2021-01-02 00:00:00 63 mm[Hg] [facility] Height 2021-01-02 00:00:00 71 [in_i] [facility] BMI (Body Mass 2021-01-02 00:00:00 30.3 kg/m2 [facility] BP Systolic 2021-01-02 00:00:00 112 mm[Hg] [facility] Body Weight 2021-01-02 00:00:00 3481 [oz_av] [facility] BP Diastolic 2020-07-15 00:00:00 71 mm[Hg] [facility] Height 2020-07-15 00:00:00 71 [in_i] [facility] BMI (Body Mass 2020-07-15 00:00:00 29.7 kg/m2 [facility] BP Systolic 2020-07-15 00:00:00 117 mm[Hg] [facility] Body Weight 2020-07-15 00:00:00 213 [lb_av] [facility] BP Diastolic 2020-07-14 00:00:00 71 mm[Hg] [facility] Height 2020-07-14 00:00:00 71 [in_i] [facility] BMI (Body Mass 2020-07-14 00:00:00 29.7 kg/m2 [facility] BP Systolic 2020-07-14 00:00:00 117 mm[Hg] [facility] Body Weight 2020-07-14 00:00:00 3411 [oz_av] [facility] Height 2020-01-30 00:00:00 71 [in_i] [facility] BMI (Body Mass 2020-01-30 00:00:00 30 kg/m2 [facility] Body Weight 2020-01-30 00:00:00 3440 [oz_av] [facility] Systolic blood 2022-03-02 15:38:00 114 mm[Hg] [facility] pressure Diastolic blood 2022-03-02 15:38:00 67 mm[Hg] [facility] pressure Heart rate 2022-03-02 15:38:00 63 /min [facility] Respiratory rate 2022-03-02 15:38:00 16 /min [facility] Oxygen saturation in 2022-03-02 15:38:00 97 /min [facility] Arterial blood by Pulse oximetry Body temperature 2022-03-02 15:30:00 36.33 Elle [facility] Body height 2022-03-01 15:26:00 180.3 cm [facility] Body weight 2022-03-01 15:26:00 115.123 kg [facility] BMI 2022-03-01 15:26:00 35.40 kg/m2 [facility] Procedures Procedure Date / Time Performing Clinician Source Performed US, duplex, penis, 2022-03-09 00:00:00 [facility] [place] < 1 HOUR 2022-03-02 18:31:17 Maynor Romero [facility] 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 ENDOTRACHEAL AIRWAY LAMINECTOMY, LUMBAR 2022-03-02 12:29[facility] 2022-03-02 11:43:00 [facility] Romero [facility] Back Surgery 2022-03-02 00:00:00 [facility] XR CHEST 2 VW 2022-03-01 17:28:02 Maynor Romero [facility] ECG PRE/POST OP 2022-03-01 16:38:21 Maynor Romero [facility]ital HEMOGLOBIN A1C 2022-03-01 16:18:00 [facility] COVID-19 QUALITATIVE 2022-03-01 15:48:00 [facility] RT-PCR CBC WITH PLATELET AND 2022-03-01 15:48:00 [facility] PART[facility] THROMBOPLASTIN 2022-03-01 15:48:00 [place] [facility] TIME (PTT) PROTHROMBIN TIME WITH INR 2022-03-01 15:[facility] [facility] [address] [facility] LUMBAR 2022-02-25 18:14[facility] 2022-02-25 17:55[facility] INJ W S&I COVID-19 QUALITATIVE 2022-02-24 22:40:00 [facility] RT-PCR COMPREHENSIVE METABOLIC 2022-02-24 22:40:00 [facility] PANEL CBC WITH PLATELET AND 2022-02-24 22:40:00 [facility] DIFFERENTIAL TROPONIN T 2022-02-24 22:40:00 [facility] B NATRIURETIC PEPTIDE 2022-02-24 22:40:00 [facility] ESTIMATED GFR 2022-02-24 22:40:00 [facility] GENERAL 2022-02-24 22:27:[address] [facility] [address] SPINE EXTERNAL STUDY 2022-02-12 16:40:33 [place] Maynor [facility] XR ABDOMEN 2 VW AP W 2021-12-18 16:48:33 [place] [facility] UPRIGHT AND/OR DECUBITUS XR LUMBAR SPINE COMPLETE 2021-12-18 15:33:23 [facility] SPINE EXTERNAL STUDY 2021-08-10 17:26:30 Maynor Romero [facility] XR, lumbar spine 2021-03-10 00:00:00 Myla Vallejo Plan of Care Planned Activity Planned Date Details Comments Source Future Scheduled Test 2022-10-26 COVID-19 VACCINE ([address] [place] [address] 12:10:59 Booster for Pfizer series) [code = COVID-19 VACCINE (3 - Booster for Pfizer series)] Future Scheduled Test 2022-10-26 INFLUENZA VACCINE [facility] 12:10:59 [code = INFLUENZA VACCINE] Future Scheduled Test 2022-10-26 Pneumococcal Vaccine: [facility] 12:10:59 Pediatrics (0 to 5 Years) and At-Risk Patients (6 to 64 Years) (1 - PCV) [code = Pneumococcal Vaccine: Pediatrics (0 to 5 Years) and At-Risk Patients (6 to 64 Years) (1 - PCV)] Future Scheduled Test 2022-10-26 Hepatitis C screening [facility] 12:10:59 (procedure) [code = [id number]] Future Scheduled Test 2022-10-26 Pneumococcal Vaccine: [facility] 12:10:59 Pediatrics (0 to 5 Years) and At-Risk Patients (6 to 64 Years) (1 - PCV) [code = Pneumococcal Vaccine: Pediatrics (0 to 5 Years) and At-Risk Patients (6 to 64 Years) (1 - PCV)] Future Scheduled Test 2022-10-26 Hepatitis C screening [facility] 12:10:59 (procedure) [code = [id number]] Future Scheduled Test 2022-10-26 COVID-19 VACCINE ([address] [place] [address] 12:10:59 Booster for Pfizer series) [code = COVID-19 VACCINE (3 - Booster for Pfizer series)] Future Scheduled Test 2022-10-26 INFLUENZA VACCINE [facility] 12:10:59 [code = INFLUENZA VACCINE] Future Scheduled Test 2022-10-26 Pneumococcal Vaccine: [facility] 12:10:59 Pediatrics (0 to 5 Years) and At-Risk Patients (6 to 64 Years) (1 - PCV) [code = Pneumococcal Vaccine: Pediatrics (0 to 5 Years) and At-Risk Patients (6 to 64 Years) (1 - PCV)] Future Scheduled Test 2022-10-26 Hepatitis C screening [facility] 12:10:59 (procedure) [code = [id number]] Future Scheduled Test 2022-10-26 COVID-19 VACCINE ([address] [place] [address] 12:10:59 Booster for Pfizer series) [code = COVID-19 VACCINE (3 - Booster for Pfizer series)] Future Scheduled Test 2022-10-26 INFLUENZA VACCINE [facility] 12:10:59 [code = INFLUENZA VACCINE] Future Scheduled Test 2022-10-26 Pneumococcal Vaccine: [facility] 12:10:59 Pediatrics (0 to 5 Years) and At-Risk Patients (6 to 64 Years) (1 - PCV) [code = Pneumococcal Vaccine: Pediatrics (0 to 5 Years) and At-Risk Patients (6 to 64 Years) (1 - PCV)] Future Scheduled Test 2022-10-26 Hepatitis C screening [facility] 12:10:59 (procedure) [code = [id number]] Future Scheduled Test 2022-10-26 COVID-19 VACCINE ([address] [place] [address] 12:10:59 Booster for Pfizer series) [code = COVID-19 VACCINE (3 - Booster for Pfizer series)] Future Scheduled Test 2022-10-26 INFLUENZA VACCINE [facility] 12:10:59 [code = INFLUENZA VACCINE] Future Scheduled Test 2022-10-12 Pneumococcal Vaccine: [facility] 03:52:45 Pediatrics (0 to 5 Years) and At-Risk Patients (6 to 64 Years) (1 - PCV) [code = Pneumococcal Vaccine: Pediatrics (0 to 5 Years) and At-Risk Patients (6 to 64 Years) (1 - PCV)] Future Scheduled Test 2022-10-12 Hepatitis C screening [facility] 03:52:45 (procedure) [code = [id number]] Future Scheduled Test 2022-10-12 COVID-19 VACCINE ([address] [place] [address] 03:52:45 Booster for Pfizer series) [code = COVID-19 VACCINE (3 - Booster for Pfizer series)] Future Scheduled Test 2022-10-12 INFLUENZA VACCINE [facility] 03:52:45 [code = INFLUENZA VACCINE] Future Scheduled Test 2022-10-12 Pneumococcal Vaccine: [facility] 03:52:45 Pediatrics (0 to 5 Years) and At-Risk Patients (6 to 64 Years) (1 - PCV) [code = Pneumococcal Vaccine: Pediatrics (0 to 5 Years) and At-Risk Patients (6 to 64 Years) (1 - PCV)] Future Scheduled Test 2022-10-12 Hepatitis C screening [facility] 03:52:45 (procedure) [code = [id number]] Future Scheduled Test 2022-10-12 COVID-19 VACCINE ([address] [place] [address] 03:52:45 Booster for Pfizer series) [code = COVID-19 VACCINE (3 - Booster for Pfizer series)] Future Scheduled Test 2022-10-12 INFLUENZA VACCINE [facility] 03:52:45 [code = INFLUENZA VACCINE] Future Scheduled Test 2022-10-12 Pneumococcal Vaccine: [facility] 03:52:45 Pediatrics (0 to 5 Years) and At-Risk Patients (6 to 64 Years) (1 - PCV) [code = Pneumococcal Vaccine: Pediatrics (0 to 5 Years) and At-Risk Patients (6 to 64 Years) (1 - PCV)] Future Scheduled Test 2022-10-12 Hepatitis C screening [facility] 03:52:45 (procedure) [code = [id number]] Future Scheduled Test 2022-10-12 COVID-19 VACCINE ([address] [place] [address] 03:52:45 Booster for Pfizer series) [code = COVID-19 VACCINE (3 - Booster for Pfizer series)] Future Scheduled Test 2022-10-12 INFLUENZA VACCINE [facility] 03:52:45 [code = INFLUENZA VACCINE] Future Scheduled Test 2022-09-07 Pneumococcal Vaccine: [facility] 19:21:49 Pediatrics (0 to 5 Years) and At-Risk Patients (6 to 64 Years) (1 - PCV) [code = Pneumococcal Vaccine: Pediatrics (0 to 5 Years) and At-Risk Patients (6 to 64 Years) (1 - PCV)] Future Scheduled Test 2022-09-07 Hepatitis C screening [facility] 19:21:49 (procedure) [code = [id number]] Future Scheduled Test 2022-09-07 COVID-19 VACCINE ([address] [place] [address] 19:21:49 Booster for Pfizer series) [code = COVID-19 VACCINE (3 - Booster for Pfizer series)] Future Scheduled Test 2022-09-07 INFLUENZA VACCINE [facility] 19:21:49 [code = INFLUENZA VACCINE] Future Scheduled Test 2022-09-07 Pneumococcal Vaccine: [facility] 19:21:49 Pediatrics (0 to 5 Years) and At-Risk Patients (6 to 64 Years) (1 - PCV) [code = Pneumococcal Vaccine: Pediatrics (0 to 5 Years) and At-Risk Patients (6 to 64 Years) (1 - PCV)] Future Scheduled Test 2022-09-07 Hepatitis C screening [facility] 19:21:49 (procedure) [code = [id number]] Future Scheduled Test 2022-09-07 COVID-19 VACCINE ([address] [place] [address] 19:21:49 Booster for Pfizer series) [code = COVID-19 VACCINE (3 - Booster for Pfizer series)] Future Scheduled Test 2022-09-07 INFLUENZA VACCINE [facility] 19:21:49 [code = INFLUENZA VACCINE] Future Scheduled Test 2022-09-07 Pneumococcal Vaccine: [facility] 19:21:49 Pediatrics (0 to 5 Years) and At-Risk Patients (6 to 64 Years) (1 - PCV) [code = Pneumococcal Vaccine: Pediatrics (0 to 5 Years) and At-Risk Patients (6 to 64 Years) (1 - PCV)] Future Scheduled Test 2022-09-07 Hepatitis C screening [facility] 19:21:49 (procedure) [code = [id number]] Future Scheduled Test 2022-09-07 COVID-19 VACCINE ([address] [place] [address] 19:21:49 Booster for Pfizer series) [code = COVID-19 VACCINE (3 - Booster for Pfizer series)] Future Scheduled Test 2022-09-07 INFLUENZA VACCINE [facility] 19:21:49 [code = INFLUENZA VACCINE] Future Scheduled Test 2022-09-07 Pneumococcal Vaccine: [facility] 19:21:49 Pediatrics (0 to 5 Years) and At-Risk Patients (6 to 64 Years) (1 - PCV) [code = Pneumococcal Vaccine: Pediatrics (0 to 5 Years) and At-Risk Patients (6 to 64 Years) (1 - PCV)] Future Scheduled Test 2022-09-07 Hepatitis C screening [facility] 19:21:49 (procedure) [code = [id number]] Future Scheduled Test 2022-09-07 COVID-19 VACCINE ([address] [place] [address] 19:21:49 Booster for Pfizer series) [code = COVID-19 VACCINE (3 - Booster for Pfizer series)] Future Scheduled Test 2022-09-07 INFLUENZA VACCINE [facility] 19:21:49 [code = INFLUENZA VACCINE] Future Scheduled Test 2022-06-26 Pneumococcal Vaccine: [facility] 18:09:46 Pediatrics (0 to 5 Years) and At-Risk Patients (6 to 64 Years) (1 - PCV) [code = Pneumococcal Vaccine: Pediatrics (0 to 5 Years) and At-Risk Patients (6 to 64 Years) (1 - PCV)] Future Scheduled Test 2022-06-26 Hepatitis C screening [facility] 18:09:46 (procedure) [code = [id number]] Future Scheduled Test 2022-06-26 COVID-19 VACCINE ([address] [place] [address] 18:09:46 Booster for Pfizer series) [code = COVID-19 VACCINE (3 - Booster for Pfizer series)] Future Scheduled Test 2022-06-26 INFLUENZA VACCINE [facility] 18:09:46 [code = INFLUENZA VACCINE] Future Scheduled Test 2022-06-26 Pneumococcal Vaccine: [facility] 18:09:46 Pediatrics (0 to 5 Years) and At-Risk Patients (6 to 64 Years) (1 - PCV) [code = Pneumococcal Vaccine: Pediatrics (0 to 5 Years) and At-Risk Patients (6 to 64 Years) (1 - PCV)] Future Scheduled Test 2022-06-26 Hepatitis C screening [facility] 18:09:46 (procedure) [code = [id number]] Future Scheduled Test 2022-06-26 COVID-19 VACCINE ([address] [place] [address] 18:09:46 Booster for Pfizer series) [code = COVID-19 VACCINE (3 - Booster for Pfizer series)] Future Scheduled Test 2022-06-26 INFLUENZA VACCINE [facility] 18:09:46 [code = INFLUENZA VACCINE] [...] plasma] Future Scheduled Test 2022-05-20 Pneumococcal Vaccine: [facility] 09:23:23 Pediatrics (0 to 5 Years) and At-Risk Patients (6 to 64 Years) (1 - PCV) [code = Pneumococcal Vaccine: Pediatrics (0 to 5 Years) and At-Risk Patients (6 to 64 Years) (1 - PCV)] Future Scheduled Test 2022-05-20 Hepatitis C screening [facility] 09:23:23 (procedure) [code = [id number]] Future Scheduled Test 2022-05-20 COVID-19 VACCINE ([address] [place] [address] 09:23:23 Booster for Pfizer series) [code = COVID-19 VACCINE (3 - Booster for Pfizer series)] Future Scheduled Test 2022-05-20 INFLUENZA VACCINE [facility] 09:23:23 [code = INFLUENZA VACCINE] Future Scheduled Test 2022-05-20 Pneumococcal Vaccine: [facility] 09:23:23 Pediatrics (0 to 5 Years) and At-Risk Patients (6 to 64 Years) (1 - PCV) [code = Pneumococcal Vaccine: Pediatrics (0 to 5 Years) and At-Risk Patients (6 to 64 Years) (1 - PCV)] Future Scheduled Test 2022-05-20 Hepatitis C screening [facility] 09:23:23 (procedure) [code = [id number]] Future Scheduled Test 2022-05-20 COVID-19 VACCINE ([address] [place] [address] 09:23:23 Booster for Pfizer series) [code = COVID-19 VACCINE (3 - Booster for Pfizer series)] Future Scheduled Test 2022-05-20 INFLUENZA VACCINE [facility] 09:23:23 [code = INFLUENZA VACCINE] Future Scheduled Test 2022-05-20 Pneumococcal Vaccine: [facility] 09:23:23 Pediatrics (0 to 5 Years) and At-Risk Patients (6 to 64 Years) (1 - PCV) [code = Pneumococcal Vaccine: Pediatrics (0 to 5 Years) and At-Risk Patients (6 to 64 Years) (1 - PCV)] Future Scheduled Test 2022-05-20 Hepatitis C screening [facility] 09:23:23 (procedure) [code = [id number]] Future Scheduled Test 2022-05-20 COVID-19 VACCINE ([address] [place] [address] 09:23:23 Booster for Pfizer series) [code = COVID-19 VACCINE (3 - Booster for Pfizer series)] Future Scheduled Test 2022-05-20 INFLUENZA VACCINE [facility] 09:23:23 [code = INFLUENZA VACCINE] Future Scheduled Test 2022-05-20 Pneumococcal Vaccine: [facility] 09:23:23 Pediatrics (0 to 5 Years) and At-Risk Patients (6 to 64 Years) (1 - PCV) [code = Pneumococcal Vaccine: Pediatrics (0 to 5 Years) and At-Risk Patients (6 to 64 Years) (1 - PCV)] Future Scheduled Test 2022-05-20 Hepatitis C screening [facility] 09:23:23 (procedure) [code = [id number]] Future Scheduled Test 2022-05-20 COVID-19 VACCINE ([address] [place] [address] 09:23:23 Booster for Pfizer series) [code = COVID-19 VACCINE (3 - Booster for Pfizer series)] Future Scheduled Test 2022-05-20 INFLUENZA VACCINE [facility] 09:23:23 [code = INFLUENZA VACCINE] Future Scheduled Test 2022-05-20 Pneumococcal Vaccine: [facility] 09:23:23 Pediatrics (0 to 5 Years) and At-Risk Patients (6 to 64 Years) (1 - PCV) [code = Pneumococcal Vaccine: Pediatrics (0 to 5 Years) and At-Risk Patients (6 to 64 Years) (1 - PCV)] Future Scheduled Test 2022-05-20 Hepatitis C screening [facility] 09:23:23 (procedure) [code = [id number]] Future Scheduled Test 2022-05-20 COVID-19 VACCINE ([address] [place] [address] 09:23:23 Booster for Pfizer series) [code = COVID-19 VACCINE (3 - Booster for Pfizer series)] Future Scheduled Test 2022-05-20 INFLUENZA VACCINE [facility] 09:23:23 [code = INFLUENZA VACCINE] Future Scheduled Test 2022-05-20 Pneumococcal Vaccine: [facility] 09:23:23 Pediatrics (0 to 5 Years) and At-Risk Patients (6 to 64 Years) (1 - PCV) [code = Pneumococcal Vaccine: Pediatrics (0 to 5 Years) and At-Risk Patients (6 to 64 Years) (1 - PCV)] Future Scheduled Test 2022-05-20 Hepatitis C screening [facility] 09:23:23 (procedure) [code = [id number]] Future Scheduled Test 2022-05-20 COVID-19 VACCINE ([address] [place] [address] 09:23:23 Booster for Pfizer series) [code = COVID-19 VACCINE (3 - Booster for Pfizer series)] Future Scheduled Test 2022-05-20 INFLUENZA VACCINE [facility] 09:23:23 [code = INFLUENZA VACCINE] Future Scheduled Test 2022-05-11 Pneumococcal Vaccine: [facility] 07:01:06 Pediatrics (0 to 5 Years) and At-Risk Patients (6 to 64 Years) (1 - PCV) [code = Pneumococcal Vaccine: Pediatrics (0 to 5 Years) and At-Risk Patients (6 to 64 Years) (1 - PCV)] Future Scheduled Test 2022-05-11 Hepatitis C screening [facility] 07:01:06 (procedure) [code = [id number]] Future Scheduled Test 2022-05-11 COVID-19 VACCINE ([address] [place] [address] 07:01:06 Booster for Pfizer series) [code = COVID-19 VACCINE (3 - Booster for Pfizer series)] Future Scheduled Test 2022-05-11 INFLUENZA VACCINE [facility] 07:01:06 [code = INFLUENZA VACCINE] Future Scheduled Test 2022-05-11 Pneumococcal Vaccine: [facility] 07:01:06 Pediatrics (0 to 5 Years) and At-Risk Patients (6 to 64 Years) (1 - PCV) [code = Pneumococcal Vaccine: Pediatrics (0 to 5 Years) and At-Risk Patients (6 to 64 Years) (1 - PCV)] Future Scheduled Test 2022-05-11 Hepatitis C screening [facility] 07:01:06 (procedure) [code = [id number]] Future Scheduled Test 2022-05-11 COVID-19 VACCINE ([address] [place] [address] 07:01:06 Booster for Pfizer series) [code = COVID-19 VACCINE (3 - Booster for Pfizer series)] Future Scheduled Test 2022-05-11 INFLUENZA VACCINE [facility] 07:01:06 [code = INFLUENZA VACCINE] Future Scheduled Test 2022-04-23 Pneumococcal Vaccine: [facility] 15:05:55 Pediatrics (0 to 5 Years) and At-Risk Patients (6 to 64 Years) (1 - PCV) [code = Pneumococcal Vaccine: Pediatrics (0 to 5 Years) and At-Risk Patients (6 to 64 Years) (1 - PCV)] Future Scheduled Test 2022-04-23 Hepatitis C screening [facility] 15:05:55 (procedure) [code = [id number]] Future Scheduled Test 2022-04-23 COVID-19 VACCINE ([address] [place] [address] 15:05:55 Booster for Pfizer series) [code = COVID-19 VACCINE (3 - Booster for Pfizer series)] Future Scheduled Test 2022-04-23 INFLUENZA VACCINE [facility] 15:05:55 [code = INFLUENZA VACCINE] Future Scheduled Test 2022-03-19 Pneumococcal Vaccine: [facility] 14:05:17 Pediatrics (0 to 5 Years) and At-Risk Patients (6 to 64 Years) (1 - PCV) [code = Pneumococcal Vaccine: Pediatrics (0 to 5 Years) and At-Risk Patients (6 to 64 Years) (1 - PCV)] Future Scheduled Test 2022-03-19 Hepatitis C screening [facility] 14:05:17 (procedure) [code = [id number]] Future Scheduled Test 2022-03-19 COVID-19 VACCINE ([address] [place] [address] 14:05:17 Booster for Pfizer series) [code = COVID-19 VACCINE (3 - Booster for Pfizer series)] Future Scheduled Test 2022-03-19 INFLUENZA VACCINE [facility] 14:05:17 [code = INFLUENZA VACCINE] Future Scheduled Test 2022-03-19 Pneumococcal Vaccine: [facility] 14:05:17 Pediatrics (0 to 5 Years) and At-Risk Patients (6 to 64 Years) (1 - PCV) [code = Pneumococcal Vaccine: Pediatrics (0 to 5 Years) and At-Risk Patients (6 to 64 Years) (1 - PCV)] Future Scheduled Test 2022-03-19 Hepatitis C screening [facility] 14:05:17 (procedure) [code = [id number]] Future Scheduled Test 2022-03-19 COVID-19 VACCINE ([address] [place] [address] 14:05:17 Booster for Pfizer series) [code = COVID-19 VACCINE (3 - Booster for Pfizer series)] Future Scheduled Test 2022-03-19 INFLUENZA VACCINE [facility] 14:05:17 [code = INFLUENZA VACCINE] Future Scheduled Test 2022-03-06 Pneumococcal Vaccine: [facility] 19:05:17 Pediatrics (0 to 5 Years) and At-Risk Patients (6 to 64 Years) (1 - PCV) [code = Pneumococcal Vaccine: Pediatrics (0 to 5 Years) and At-Risk Patients (6 to 64 Years) (1 - PCV)] Future Scheduled Test 2022-03-06 Hepatitis C screening [facility] 19:05:17 (procedure) [code = 600864614] Future Scheduled Test 2022-03-06 COVID-19 VACCINE ([address] [place] [address] 19:05:17 Booster for Pfizer series) [code = COVID-19 VACCINE (3 - Booster for Pfizer series)] Future Scheduled Test 2022-03-06 INFLUENZA VACCINE [facility] 19:05:17 [code = INFLUENZA VACCINE] Future Scheduled Test 2022-03-06 Pneumococcal Vaccine: [facility] 19:05:17 Pediatrics (0 to 5 Years) and At-Risk Patients (6 to 64 Years) (1 - PCV) [code = Pneumococcal Vaccine: Pediatrics (0 to 5 Years) and At-Risk Patients (6 to 64 Years) (1 - PCV)] Future Scheduled Test 2022-03-06 Hepatitis C screening [facility] 19:05:17 (procedure) [code = [id number]] Future Scheduled Test 2022-03-06 COVID-19 VACCINE ([address] [place] [address] 19:05:17 Booster for Pfizer series) [code = COVID-19 VACCINE (3 - Booster for Pfizer series)] Future Scheduled Test 2022-03-06 INFLUENZA VACCINE [facility] 19:05:17 [code = INFLUENZA VACCINE] Future Scheduled Test 2022-03-06 Pneumococcal Vaccine: [facility] 19:05:17 Pediatrics (0 to 5 Years) and At-Risk Patients (6 to 64 Years) (1 - PCV) [code = Pneumococcal Vaccine: Pediatrics (0 to 5 Years) and At-Risk Patients (6 to 64 Years) (1 - PCV)] Future Scheduled Test 2022-03-06 Hepatitis C screening [facility] 19:05:17 (procedure) [code = 171639228] Future Scheduled Test 2022-03-06 COVID-19 VACCINE ([address] [place] [address] 19:05:17 Booster for Pfizer series) [code = COVID-19 VACCINE (3 - Booster for Pfizer series)] Future Scheduled Test 2022-03-06 INFLUENZA VACCINE [facility] 19:05:17 [code = INFLUENZA VACCINE] Future Scheduled Test 2022-03-06 Pneumococcal Vaccine: [facility] 19:05:17 Pediatrics (0 to 5 Years) and At-Risk Patients (6 to 64 Years) (1 - PCV) [code = Pneumococcal Vaccine: Pediatrics (0 to 5 Years) and At-Risk Patients (6 to 64 Years) (1 - PCV)] Future Scheduled Test 2022-03-06 Hepatitis C screening [facility] 19:05:17 (procedure) [code = 953826228] Future Scheduled Test 2022-03-06 COVID-19 VACCINE (3 - [facility] 19:05:17 Booster for Pfizer series) [code = COVID-19 VACCINE (3 - Booster for Pfizer series)] Future Scheduled Test 2022-03-06 INFLUENZA VACCINE M [facility] 19:05:17 [code = INFLUENZA VACCINE] Instructions [facility] Encounters Start End Encounter Admission Attending Care Care Encounter Source Date/Time Date/Time Type Type Clinicians Facility Department ID 2022-08-26 Outpatient [facility] [id number] Common 10:40:02 Ronnell [id number] [facility] 2022-08-09 Inpatient TEXANA TEXANA [id number] [place] 16:07:58 [id number] Jay Em 2022-06-18 Inpatient YASMEEN KHANNA [facility] [id number] [place] 08:00:00 NAHUN [id number] Replaced by [facility] 2022-06-11 Inpatient YASMEEN KHANNA [facility] [id number] [place] 08:00:00 NAHUN [id number] Replaced by [facility] 2022-06-08 Inpatient TEXANA TEXANA [id number] [place] 11:16:57 [id number] Jay Em 2022-05-31 Inpatient TEXANA TEXANA [id number] [place] 12:03:56 [id number] Jay Em 2022-05-[address] [facility] [id number] Common 09:43:04 Ronnell [id number] [facility] 2022-05-03 Inpatient YASMEEN ROMERO [facility] [id number] [place] 09:00:00 MAYNOR [id number] Replaced by [facility] 2022-03-23 Inpatient TEXANA TEXANA [id number] [place] 11:21:45 [id number] Jay Em 2022-10-19 2022-10-19 Emergency ER JOEL, [facility] [id number] [place] 03:22:00 05:40:00 BRENDA -[id number] Replaced by [facility] 2022-09-07 2022-09-07 Telephone Duc, 1.2.840.1 [id number] [id number] [facility] 00:00:00 00:00:[address] 3.430.2.7 Hospit a .3.666010 l .8 2022-09-07 2022-09-07 Telephone Duc, 1.2.840.1 [id number] 2100 [id number] [facility] 00:00:00 00:00:[address] 3.430.2.7 Hospit a .3.604716 l .8 2022-07-26 2022-08-06 Office Maynor Romero 1.2.840.1 [id number] [facility] 10:00:00 16:53:40 [place] [address]13.1.[address] 3.430.2.7 Hospit a .3.807743 l .8 2022-07-26 2022-08-06 Maynor Pierson 1.2.840.1 [id number] [facility] 10:00:00 16:53:40 [place] [address]60.1.[address] 3.430.2.7 Hospit a .3.608144 l .8 2022-07-29 2022-07-29 Outpatient YASMEEN KHANNA [facility] [id number] 09:54[facility]00 09:54:00 NAHUN [id number] Replaced by [facility] 2022-07-26 2022-07-26 Travel 1.2.840.1 [id number] [id number] [facility] 00:00:00 00:00:[address] 3.430.2.7 0.2.7.3.698 Ho spita .3.314027 084.8 l .8 2022-07-26 2022-07-26 Travel 1.2.840.1 1.2.418.351 [id number] [facility] 00:00:00 00:00:[address] 3.430.2.7 0.2.7.3.698 Ho spita .3.253833 084.8 l .8 2022-06-14 2022-07-10 Outpatient YASMEEN ROMERO, [facility] [id number] [place] 07:00:00 00:01:00 MAYNOR -[id number] da [facility] 2022-07-05 2022-07-05 Emergency ER Barron, [facility] [id number] [place] 23:45:00 23:58:00 Neymar -[id number] Replaced by [facility] 2022-06-25 2022-06-25 Outpatient YASMEEN Perry, [facility] [id number] [place] 10:55:00 10:55:00 Ronnell -[id number] Replaced by [facility] 2022-06-25 2022-06-25 Outpatient Randya_F [facility] [id number] [place] 00:00:00 00:00:00 1216 [facility] 2022-06-25 2022-06-25 Radha [facility] [place] - [id number] [place] 00:00:00 00:00:00 Discovery 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 2022-06-24 2022-06-24 Orders Mariferi, 1.2.840.1 [id number] 2099 [id number] Methodi 00:00:00 00:00:00 Only Rich [address]65.1.[address] 3.430.2.7 Hospit a .3.027910 l .8 2022-06-24 2022-06-24 Orders Mariferi, 1.2.840.1 [id number] 2099 [id number] [facility]i 00:00:00 00:00:00 Only Rich [address]70.1.[address] 3.430.2.7 Hospit a .3.428447 l .8 2022-06-21 2022-06-21 Outpatient Zuniga_F [facility] G [id number] [place] 00:00:00 00:00:00 1212 [facility] 2022-06-21 2022-06-21 Ronnell MM [place] - [id number] [place] 00:00:00 00:00:00 Micky Lozano Medical Medical MD: [address] [facility] [address], [place] [address] , Ph. 2022-06-09 2022-06-16 Inpatient ER Perry, [facility] [id number] [place] 08:05:00 15:40:00 Ronnell -[id number] Replaced by [facility] 2022-06-02 2022-06-09 Outpatient YASMEEN NICK, [facility] [id number] [place] 11:00:00 00:01:00 MAYNOR -[id number] Replaced by [facility] 2022-06-07 2022-06-07 Inpatient ER PERRY, [facility] [id number] [place] 17:16:00 14:35:00 RONNELL -[id number] Replaced by [facility] 2022-06-05 2022-06-05 [facility] [id number] [place] 15:31:00 15:45:00 JASON -[id number] da [facility] 2022-05-26 2022-05-26 Outpatient YASMEEN ROMERO [facility] [id number] [place] 11:00:00 11:00:00 MAYNOR -[id number] Replaced by [facility] 2022-05-24 2022-05-24 Outpatient YASMEEN ROMERO [facility] [id number] [place] 11:00:00 11:00:00 MAYNOR -[id number] Replaced by [facility] 2022-05-21 2022-05-21 Outpatient YASMEEN ROMERO [facility] [id number] [place] 11:00:00 11:00:00 MAYNOR -[id number] Replaced by [facility] 2022-05-20 2022-05-20 Outpatient YASMEEN KHANNA [facility] [id number] [place] 08:01:00 08:01:00 NAHUN -[id number] Replaced by [facility] 2022-05-19 2022-05-19 Orders Dejah, 1.2.840.1 [id number] 2100 [id number] [facility]i 00:00:00 00:00:00 Only Rich [address]18.1.[address] 3.430.2.7 Hospit a .3.111905 l .8 2022-05-19 2022-05-19 Orders Dejah, 1.2.840.1 [id number] 2100 [id number] [facility]i 00:00:00 00:00:00 Only Rich [address]906.1.[address] 3.430.2.7 Hospit a .3.709543 l .8 2022-05-19 2022-05-19 [facility] [id number] Co mmon 00:00:00 00:00:00 VISIT [facility] PT LEVEL 3 - [facility] 2022-05-18 2022-05-18 Emergency ER JOEL, [facility] [id number] [id number] [place] 19:04:00 21:55:00 BRENDA -[id number] Replaced by [facility] 2022-04-30 2022-04-30 Emergency ER LANGPHANIRN, [facility] [id number] [place] 14:49:00 15:34:00 JASON -[id number] Replaced by [facility] 2022-04-25 2022-04-25 Emergency ER Barron, [facility] [id number] [place] 14:10:00 14:43:00 Neymar -[id number] Replaced by [facility] 2022-04-21 2022-04-21 Emergency ER ANAYA, [facility] [id number] [place] 08:47:00 10:02:00 SHI -[id number] Replaced by [facility] 2022-04-19 2022-04-19 Office Nick, 1.2.840.1 [id number] 6624 Methodi 10:20:00 11:30:20 Visit Maynor Sánchez 90015.1.1 837 s t 3.430.2.7 Hospit a .3.858630 l .8 2022-04-19 2022-04-19 Office Wood, 1.2.840.1 [id number] 922572 8088 Methodi 10:20:00 11:30:20 Visit Maynor Sánchez 53440.1.1 837 s t 3.430.2.7 Hospit a .3.132764 l .8 2022-04-19 2022-04-19 Travel 1.2.840.1 1.2.519.432 5439 232926 Methodi 00:00:00 00:00:[address] 3.430.2.7 0.2.7.3.698 Ho spita .3.572471 084.8 l .8 2022-04-19 2022-04-19 Travel 1.2.840.1 1.2.592.574 7800 073480 Methodi 00:00:00 00:00:[address] 3.430.2.7 0.2.7.3.698 Ho spita .3.154936 084.8 l .8 2022-04-16 2022-04-16 Emergency ER Beatrice, [facility] [id number] [place] 08:42:00 11:50:00 Neymar -[id number] Replaced by [facility] 2022-04-14 2022-04-14 Emergency ER JACLYN, [facility] [id number] [place] 07:08:00 08:22:00 SHI -[id number] Replaced by [facility] 2022-04-05 2022-04-05 Emergency ER Melissa, [facility] [id number] [place] 12:23:00 14:08:00 Alexa -[id number] Replaced by [facility] 2022-04-01 2022-04-01 Outpatient Orlando_F [facility] [id number] [place] 00:00:00 00:00:00 0922 Medical Group 2022-04-01 2022-04-01 Orders Dejah, 1.2.840.1 [id number] 2099 [id number] Methodi 00:00:00 00:00:00 Only Rich 51259.1.[address] 3.430.2.7 Hospit a .3.507002 l .8 2022-04-01 2022-04-01 Orders Jeansydney, 1.2.840.1 [id number] 2099 [id number] Methodi 00:00:00 00:00:00 Only Rich 04386.1.[address] 3.430.2.7 Hospit a .3.116954 l .8 2022-03-31 2022-03-31 Emergency ER ANAYA, [facility] [id number] [place] 13:34:00 16:08:00 SHI -[id number] Replaced by [facility] 2022-03-21 2022-03-21 Emergency ER GUME, [facility] [id number] [place] 09:47:00 14:33:00 JASON -[id number] Replaced by [facility] 2022-03-19 2022-03-19 Office Dejah, 1.2.840.1 [id number] 2099 [id number] Methodi 14:20:00 14:33:59 Visit Rich 92080.1.[address] 3.430.2.7 Hospit a .3.821045 l .8 2022-03-19 2022-03-19 Office Dejah, 1.2.840.1 [id number] 2099 950705 Methodi 14:20:00 14:33:59 Visit Rich 88204.1.[address] 3.430.2.7 Hospit a .3.363131 l .8 2022-03-19 2022-03-19 Travel 1.2.840.1 1.2.153.369 0505 295492 Methodi 00:00:00 00:00:[address] 3.430.2.7 0.2.7.3.698 Ho spita .3.796809 084.8 l .8 2022-03-19 2022-03-19 Travel 1.2.840.1 1.2.449.014 1928 477461 Methodi 00:00:00 00:00:[address] 3.430.2.7 0.2.7.3.698 Ho spita .3.687353 084.8 l .8 2022-03-11 2022-03-11 Emergency ER Ryan, [facility] [id number] [place] 09:45:00 13:28:00 Chance -[id number] Replaced by [facility] 2022-03-09 2022-03-09 Outpatient Du[facility] [id number] -2021 [place] 00:00:00 00:00:00 0830 Medical Group 2022-03-09 2022-03-09 Kia [facility] [place] - [id number] [place] 00:00:00 00:00:00 Discovery perry Simpson PA-C: [facility] - [address], [facility] [place] [address] , Ph. 2022-03-07 2022-03-07 Emergency ER JACLYN, [facility] [id number] [place] 12:01:00 13:53:00 SHI -[id number] Replaced by [facility] 2022-03-03 2022-03-03 Telephone Priyankyellow pine, 1.2.840.1 [id number] 2100 557392 Methodi 00:00:00 00:00:[address] 3.430.2.7 Hospit a .3.610534 l .8 2022-03-03 2022-03-03 Telephone [facility], 1.2.840.1 [id number] 2100 474541 Methodi 00:00:00 00:00:[address] 3.430.2.7 Hospit a .3.712951 l .8 2022-03-02 2022-03-02 [facility] [place], 1.2.840.1 [id number] 05672 15864 Methodi 05:56:00 11:56:00 Encounter Maynor Sánchez 76862.1.[address] 3.430.2.7 Hospit a .3.134396 l .8 2022-03-02 2022-03-02 [facility], 1.2.840.1 [id number] 40298 68892 Methodi 05:56:00 11:56:00 Encounter Maynor Sánchez 64341.1.[address] 3.430.2.7 Hospit a .3.994069 l .8 2022-03-02 2022-03-02 Anesthesia Alfreda Duvall. 1.2.840.1 10 [id number] Methodi 07:29:00 09:55:00 Event Anna Adair 48782.1.[address] 3.430.2.7 Hospit a .3.850058 l .8 2022-03-02 2022-03-02 Anesthesia Eloina Alfreda A. 1.2.840.1 10 0751061 1560126486 Methodi 07:29:00 09:55:00 Event Anna Adair 02557.1.[address] 3.430.2.7 Hospit a .3.850371 l .8 2022-03-02 2022-03-02 [facility] [place], 1.2.840.1 [id number] 567280 3343 Methodi 07:30:00 09:50:00 Maynor B. 93681.1.1 735 s t 3.430.2.7 Hospit a .3.169525 l .8 2022-03-02 2022-03-02 [facility] [place], 1.2.840.1 [id number] 415543 0469 Methodi 07:30:00 09:50:00 Maynor Sánchez 16877.1.1 735 s t 3.430.2.7 Hospit a .3.102815 l .8 2022-03-02 2022-03-02 Telephone Dejah 1.2.840.1 [id number] 21 [id number] Methodi 00:00:00 00:00:[address] 3.430.2.7 Hospit a .3.904653 l .8 2022-03-02 2022-03-02 Telephone Dejah, 1.2.840.1 [id number] 21 00142725 Methodi 00:00:00 00:00:[address] 3.430.2.7 Hospit a .3.391124 l .8 2022-03-01 2022-03-01 [facility], 1.2.840.1 [id number] 21001 75499 Methodi 12:18:26 23:59:00 Encounter Maynor LynchJuan José 02824.1.[address] 3.430.2.7 Hospit a .3.044995 l .8 2022-03-01 2022-03-01 [facility], 1.2.840.1 96151590469 Methodi 12:18:26 23:59:00 Encounter Maynor LynchJuan José 45124.1.[address] 3.430.2.7 Hospit a .3.837600 l .8 2022-03-01 2022-03-01 Pre-Admiss [place], 1.2.840.1 [id number] 158 3068109 Methodi 09:30:00 10:30:00 ion Maynor LynchJuan José 45858.1.1 034 s t Testing 3.430.2.7 Hospit a .3.058347 l .8 2022-03-01 2022-03-01 Pre-Admiss [place], 1.2.840.1 890078157 519 9808952 Methodi 09:30:00 10:30:00 ion Maynor LynchJuan José 60316.1.1 034 s t Testing 3.430.2.7 Hospit a .3.759176 l .8 2022-03-01 2022-03-01 Telephone Graeme, 1.2.840.1 [id number] 21 [id number] Methodi 00:00:00 00:00:[address] 7[address]47.1.[address] 3.430.2.7 Hospit a .3.683783 l .8 2022-03-01 2022-03-01 Travel 1.2.840.1 1.2.442.708 7396 237639 Methodi 00:00:00 00:00:[address] 3.430.2.7 0.2.7.3.698 Ho spita .3.727905 084.8 l .8 2022-03-01 2022-03-01 Telephone Bedolla, 1.2.840.1 [id number] 68808934 Methodi 00:00:00 00:00:[address] 3.430.2.7 Hospit a .3.584479 l .8 2022-03-01 2022-03-01 Travel 1.2.840.1 1.2.090.387 1825 512141 Methodi 00:00:00 00:00:[address] 3.430.2.7 0.2.7.3.698 Ho spita .3.070326 084.8 l .8 2022-02-26 2022-02-26 Telephone Wood, 1.2.840.1 [id number] 2099685 Methodi 00:00:00 00:00:00 Maynor Lynch. 63320.1.1 279 s t 3.430.2.7 Hospit a .3.498277 l .8 2022-02-26 2022-02-26 Travel 1.2.840.1 1.2.588.841 1381 934112 Methodi 00:00:00 00:00:[address] 3.430.2.7 0.2.7.3.698 Ho spita .3.294978 084.8 l .8 2022-02-26 2022-02-26 Telephone Wood, 1.2.840.1 [id number] 2099685 Methodi 00:00:00 00:00:00 Maynor Lynch. 47462.1.1 279 s t 3.430.2.7 Hospit a .3.406819 l .8 2022-02-26 2022-02-26 Travel 1.2.840.1 1.2.682.101 6603 248879 Methodi 00:00:00 00:00:[address] 3.430.2.7 0.2.7.3.698 Ho spita .3.429450 084.8 l .8 2022-02-24 2022-02-25 Emergency [facility] 1.2.840.1 1 2099 [id number] Methodi 15:25:00 19:45:00 Basilio Diallo 43099.1.[address] 3.430.2.7 Hospit a .3.620779 l .8 2022-02-24 2022-02-25 Emergency [facility] 1.2.840.1 [id number] Methodi 15:25:00 19:45:00 Basilio Dialloramiro 61215.1.[address] 3.430.2.7 Hospit a .3.980187 l .8 2022-02-25 2022-02-25 Transcjhon Romero 1.2.840.1 369338676 886 7535425 Methodi 00:00:00 00:00:00 Orders Maynor Sánchez 12338.1.1 241 s t 3.430.2.7 Hospit a .3.798285 l .8 2022-02-25 2022-02-25 Orders Dejah 1.2.840.1 896865743 2099 643328 Methodi 00:00:00 00:00:00 Only Rich 79131.1.[address] 3.430.2.7 Hospit a .3.457168 l .8 2022-02-25 2022-02-25 Angel Romero 1.2.840.1 387941040 660 2251400 Methodi 00:00:00 00:00:00 Orders Maynor Sánchez 31140.1.1 241 s t 3.430.2.7 Hospit a .3.678706 l .8 2022-02-25 2022-02-25 Orders Dejah 1.2.840.1 [id number] 2099 568355 Methodi 00:00:00 00:00:00 Only Rich 20320.1.[address] 3.430.2.7 Hospit a .3.309366 l .8 2022-02-24 2022-02-24 [facility], 1.2.840.1 238684182 Methodi 18:39:58 23:59:00 Encounter Maynor Sánchez 08957.1.[address] 3.430.2.7 Hospit a .3.397239 l .8 2022-02-24 2022-02-24 [facility], 1.2.840.1 798332223 Methodi 18:39:58 23:59:00 Encounter Maynor Sánchez 92946.1.[address] 3.430.2.7 Hospit a .3.321260 l .8 2022-02-24 2022-02-24 [facility], 1.2.840.1 [id number] Methodi 18:39:26 23:59:00 Encounter Maynor LynchJuan José 23642.1.[address] 3.430.2.7 Hospit a .3.559810 l .8 2022-02-24 2022-02-24 [facility], 1.2.840.1 [id number] Methodi 18:39:26 23:59:00 Encounter Maynor LynchJuan José 73209.1.[address] 3.430.2.7 Hospit a .3.059771 l .8 2022-02-24 2022-02-24 [facility], 1.2.840.1 099410025 058247 9031 Methodi 00:00:00 00:00:00 Only Maynor LynchJuan José 28738.1.1 790 s t 3.430.2.7 Hospit a .3.984809 l .8 2022-02-24 2022-02-24 Travel 1.2.840.1 1.2.853.265 9249 762467 Methodi 00:00:00 00:00:[address] 3.430.2.7 0.2.7.3.698 Ho spita .3.199382 084.8 l .8 2022-02-242022-02-24 Orders Nick, 1.2.840.1 059174493 343171 0174 Methodi 00:00:00 00:00:00 Only Maynor Sánchez 55996.1.1 790 s t 3.430.2.7 Hospit a .3.909421 l .8 2022-02-24 2022-02-24 Travel 1.2.840.1 1.2.562.563 0599 647299 Methodi 00:00:00 00:00:[address] 3.430.2.7 0.2.7.3.698 Ho spita .3.567804 084.8 l .8 2022-02-12 2022-02-12 Emergency ER LUDMILASHELLEY, [facility] [id number] [place] 08:42:00 13:17:00 JASON -[id number] Replaced by [facility] 2022-01-26 2022-01-26 Outpatient [facility] 909 [place] 12:18:00 12:18:00 _DOREEN 0719 [facility] 2022-01-17 2022-01-17 Emergency ER Melissa, [facility] [id number] [place] 18:06:00 21:18:00 Alexa -[id number] Replaced by [facility] 2021-12-18 2021-12-18 Vikki Nick, 1.2.840.1 [id number] 056681 4036 Methodi 10:20:00 11:32:26 Visit Maynor Sánchez 81803.1.1 071 s t 3.430.2.7 Hospit a .3.277828 l .8 2021-12-18 2021-12-18 Vikki Romero, 1.2.840.1 [id number] 260743 2827 Methodi 10:20:00 11:32:26 Visit Maynor Sánchez 01934.1.1 071 s t 3.430.2.7 Hospit a .3.522500 l .8 2021-12-18 2021-12-18 Travel 1.2.840.1 1.2.292.646 6732 058742 Methodi 00:00:00 00:00:[address] 3.430.2.7 0.2.7.3.698 Ho spita .3.785346 084.8 l .8 2021-12-18 2021-12-18 Outpatient [facility] [id number] [place] 00:00:00 00:00:00 MAYNOR [address] 2021-12-18 2021-12-18 Travel 1.2.840.1 1.2.160.379 8128 554526 Methodi 00:00:00 00:00:[address] 3.430.2.7 0.2.7.3.698 Ho spita .3.030726 084.8 l .8 2021-12-18 2021-12-18 Outpatient [facility] [id number] [place] 00:00:00 00:00:00 MAYNOR [address] 2021-11-30 2021-11-30 Emergency ER ELMSFORD, [facility] [id number] [place] 01:26:00 04:02:00 HARRISON [id number] Replaced by [facility] 2021-11-06 2021-11-06 Outpatient Camrynkins_M [facility] [id number] [place] 12:33:00 12:33:00 050 Medical Group 2021-11-06 2021-11-06 Outpatient Camrynkins_M [facility] [id number] [place] 00:00:00 00:00:00 0429 Medical Group 2021-11-06 2021-11-06 Susan [facility] [place] - [id number] M atagor 00:00:00 00:00:00 Alma Martinez [facility] Medical AIRDOX FITTER: [address], [place] [address] , Ph. 2021-11-05 2021-11-05 Outpatient Camrynkins[facility]M [facility] [id number] [place] 04:51:00 04:51:00 0428 Medical Group 2021-09-14 2021-09-14 Outpatient Koudela_A [facility] [id number] -2021 [place] 12:39:00 12:39:00 0307 da [facility] 2021-09-14 2021-09-14 Kia [facility] [place] - [id number] M at[place] 00:00:00 00:00:00 Discovery perry Simpson PA-C: 600 Medical [facility] [address], [facility] [place] [address] , Ph. 2021-09-14 2021-09-14 Travel 1.2.840.1 1.2.197.648 0504 504685 Methodi 00:00:00 00:00:[address] 3.430.2.7 0.2.7.3.698 Ho spita .3.661686 084.8 l .8 2021-08-10 2021-08-10 Outpatient Koudela_A [facility] [id number] [place] 11:36:00 11:36:00 0131 da Medical [facility] 2021-08-10 2021-08-10 Outpatient Koudela_A [facility] [id number] [place] 11:36:00 11:36:00 0211 Medical Group 2021-08-10 2021-08-10 Outpatient EL CALVIN, [facility] [id number] [place] 11:05:00 11:05:00 KIA -[id number] Replaced by [facility] 2021-06-24 2021-06-24 Inpatient ER Nawaf, [facility] [id number] [place] 00:24:00 13:53:00 Abraham -[id number] Replaced by [facility] 2021-05-04 2021-05-04 Outpatient Zuniga_F [facility] [id number] [place] 10:22:00 10:22:00 1220 Medical Group 2021-04-28 2021-04-29 Emergency ER MARCUS, [facility] [id number] [place] 18:03:00 01:22:00 BARBARA [id number] Replaced by [facility] 2021-03-26 2021-03-26 [place] [id number]- 2020 [place] 10:53:00 10:53:00 0916 [facility] 2021-03-26 2021-03-26 Outpatient EL Orlando, [facility] [id number] [place] 08:44:00 08:44:00 Ronnell -[id number] Replaced by [facility] 2021-03-26 2021-03-26 Ronnell [facility] [place] - [id number] [place] 00:00:00 00:00:00 Micky Lozano Medical Medical MD: [address] [address], [place] [address] , Ph. 2021-03-10 2021-03-10 Outpatient Zuniga_F MMG [facility] [id number]- 2020 [place] 04:23:00 04:23:00 0831 [facility] 2021-03-10 2021-03-10 [facility] [place] - [id number] [place] 00:00:00 00:00:00 Aracelis Klein Medical MD: [address] [facility] [address] [facility] [address], [place] [address] , Ph. 2021-02-19 2021-02-19 Emergency ER OWO, TOKS [facility] [id number] [place] 09:17:00 18:11:00 -[id number] Replaced by [facility] 2021-02-18 2021-02-18 [place] [id number]- 2020 [place] 10:58:00 10:58:00 0811 [facility] 2021-02-13 2021-02-13 Outpatient Zuniga_S MMG MMG [id number]- 2020 [place] 11:36:00 11:36:00 0806 [facility] 2021-02-11 2021-02-11 [place] [id number]- 2020 [place] 04:11:00 04:11:00 0804 [facility] 2021-01-18 2021-01-18 Emergency ER CHINO, [facility] [id number] [place] 07:23:00 15:33:00 PRISCILA -[id number] Replaced by [facility] 2021-01-02 2021-01-02 [place] [id number]- 2020 [place] 11:03:00 11:03:00 0625 [facility] 2021-01-02 2021-01-02 [place] [id number]- 2020 [place] 11:03:00 11:03:00 0626 Medical Group 2021-01-02 2021-01-02 Radha [facility] [place] - [id number] [place] 00:00:00 00:00:00 Discovery perry Perry GENERAL 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 2020-07-15 2020-07-15 Outpatient Zuniga_F MMG [facility] [id number]- 2020 [place] 12:50:00 12:50:00 0105 [facility] 2020-07-15 2020-07-15 [place] [id number]- 2020 [place] 12:50:00 12:50:00 0111 [facility] 2020-07-15 2020-07-15 Tyson [facility] [place] - [id number] M atagor 00:00:00 00:00:00 Discovery perry Munoz MD: [address] [place] [address] - [facility] [address], [place] [address] , Ph. [phone] 2020-07-14 2020-07-14 Outpatient Zuniga_F MMG [facility] [id number]- 2020 [place] 04:30:00 04:30:00 0104 [facility] 2020-07-14 2020-07-14 Ronnell [facility] [place] - [id number] [place] 00:00:00 00:00:00 Aracelis Klein Medical MD: [address] [facility] [address], [place] [address] , Ph. 2020-07-10 2020-07-10 Outpatient Zuniga_F MMG MMG [id number] [place] 10:29:00 10:29:00 1231 [facility] 2020-07-07 2020-07-08 Emergency ER CHINO [facility] [id number] [place] 23:32:00 12:45:00 PRISCILA [id number] Replaced by [facility] 2020-02-26 2020-02-26 Outpatient Zuniga_F MMG MMG [id number] [place] 12:39:00 12:39:00 1229 [facility] 2020-02-26 2020-02-26 Outpatient Zuniga_F MMG MMG [id number] [place] 12:39:00 12:39:00 1230 [facility] 2020-01-30 2020-01-30 Outpatient Zuniga_F MMG MMG [id number] [place] 08:08:00 08:08:00 0722 [facility] 2020-01-30 2020-01-30 Ronnell [facility] [place] - [id number] [place] 00:00:00 00:00:00 Aracelis Klein Medical MD: [address] [facility] [address], [place] [address] , Ph. 2020-01-29 2020-01-29 Outpatient Raju_P MMG MMG [id number] [place] 04:40:00 04:40:00 0721 da [facility] Group 2019-11-06 2019-11-06 Outpatient Raju_P MMG MMG [id number] [place] 03:29:00 03:29:00 0428 [facility] 2019-11-06 2019-11-06 Outpatient Raju_P MMG MMG [id number] [id number] [place] 03:29:00 03:29:00 0429 [facility] 2019-03-02 2019-03-02 Outpatient YASMEEN ASCENCIO [facility] [id number] [place] 11:02:00 11:02:00 BYROLYN -[id number] Replaced by [facility] 2019-02-13 2019-02-13 Emergency ER CHINO, [facility] [id number] [place] 17:16:00 18:34:00 PRISCILA -[id number] Replaced by [facility] 2018-02-07 2018-02-07 Outpatient EL BELL [facility] [id number] [place] 09:47:00 09:47:00 CRISTOFER LlanesI -[id number] Replaced by [facility] 2017-10-12 2017-10-12 Emergency ER OWO, TOKS [facility] [id number] [place] 17:50:00 19:49:00 -[id number] Replaced by [facility] 2017-06-01 2017-06-01 Emergency ER OWO, TOKS [facility] [id number] [place] 04:32:00 06:26:00 -[id number] Replaced by [facility] 2017-02-24 2017-02-24 Outpatient YASMEEN ASCENCIO, [facility] [id number] [place] 08:41:00 08:41:00 BYROLYN -[id number] Replaced by [facility] 2017-01-13 2017-01-13 Emergency ER UGORJI, [facility] [id number] [place] 00:20:00 03:56:00 CEDRIC -[id number] Replaced by [facility] 2016-09-02 2016-09-02 Emergency ER UGORJI, [facility] [id number] [place] 13:20:00 14:30:00 CEDRIC -[id number] Replaced by [facility] 2016-04-28 2016-04-29 Emergency ER OWO, TOKS [facility] [id number] [place] 22:59:00 01:22:00 -[id number] Replaced by [facility] 2015-09-28 2015-09-29 Emergency ER SAEMI, [facility] [id number] [place] 21:04:00 08:15:00 NUNO -[id number] Replaced by [facility] 2015-05-05 2015-05-05 Emergency ER UGORJI, [facility] [id number] 79 [place] 19:34:00 21:26:00 CLEMENT -[id number] Replaced by [facility] 2014-11-07 2014-11-08 Emergency ER NILDA, MARKS [facility] [id number] [place] 23:26:00 04:30:00 -[id number] Replaced by [facility] 2014-08-01 2014-08-01 Outpatient EL VALLOPPILLI [facility] [id number] [place] 12:03:00 12:03:00 L, AMMINI -[id number] Replaced by [facility] 2011-12-29 2011-12-29 Emergency ER NIDIAINRJ, [facility] [id number] 79 [place] 19:51:00 22:10:00 PARKER -[id number] Replaced by [facility] 2011-11-12 2011-11-12 Outpatient EL VALLOPPILLI [facility] D00 [id number] [place] 07:58:00 07:58:00 L AMMINI -[id number] Replaced by [facility] 2011-10-10 2011-10-11 Emergency ER THAKKAR, [facility] [id number] [place] 22:24:00 01:45:00 WAS -[id number] Replaced by [facility] 2011-10-06 2011-10-06 Emergency ER JOHNNY, [facility] [id number] [place] 00:27:00 06:30:00 CLEALONZO -[id number] Replaced by [facility] 2011-09-08 2011-09-08 Outpatient EL VALLOPPILLI [facility] D00 [id number] [place] 11:57:00 11:57:00 Mario Alberto AMMINI -[id number] Replaced by [facility] 2010-06-16 2010-06-17 Emergency ER LARISSA, [facility] [id number] [place] 18:00:00 04:05:00 ZBIGNIEW -[id number] vasquez [facility] 2010-03-24 2010-03-24 Outpatient EL VALLOPPILLI [facility] D00 [id number] [place] 14:21:00 14:21:00 Mario Alberto AMMINI -[id number] Replaced by [facility] Results Test Description Test Time Test Comments Results Result Comments Source Comprehensive metabolic 2000 panel - Serum or Plasma 2022-12 -16 12:31:00 Test Item Value Reference Range Interpretation [...] alkaline 60 U/L 40-1 30 phosphatase, total) [facility]2022-12-16 12:31:00 Test Item Value Reference Range Interpretation Comments lipase (test code = lipase) 290 U/L 13-60 [facility] Differential panel - [id number] 12:07:00 Test Item Value Reference Range Interpretation [...] NRBC# (test code = NRBC#) 0 K[facility]L [facility]2022-06-16 07:40:00 Test Item Value Reference [...] (test code = normal normal platelet morphology) [facility]2022-12-07 07:12:00 Test Item Value Reference Range Interpretation Comments lipase (test code = lipase) 432 U/L 13-60 [facility] - Serum or Plasma [...] U/L 40-130 code = alkaline phosphatase, total) [facility] 07:06:00 Test Item Value Reference Range Interpretation Comments LDH (test code = LDH) 421 U/L 135-225 [facility]22-[facility]-07 07:06:00 Test Item Value Reference Range Interpretation Comments LDH (test code = LDH) 421 U/L 135-225 H [facility] W Auto Differential panel - [id number] 06:46:00 Test Item Value Reference Range Interpretation [...] morph. normal RBC code = morphology comment) [facility]2022-12-06 11:10:00 Test Item Value Reference Range Interpretation Comments lipase (test code = lipase) 478 U/L 13-60 [facility] - Serum or Plasma [...] U/L 40-130 code = alkaline phosphatase, total) [facility] W Ordered Manual Differential panel - [id number] 10:52:00 Test Item Value Reference Range Interpretation [...] (test normal normal code = platelet morphology) [facility]14 05:46:00 Test Item Value Reference [...] (test code = normal normal platelet morphology) [facility] - Serum or Plasma [...] U/L 40-130 code = alkaline phosphatase, total) [facility]2022-12-05 05:30:00 Test Item Value Reference Range Interpretation Comments lipase (test code = lipase) 273 U/L 13-60 H [facility] W Auto Differential panel - [id number] 05:16:00 Test Item Value Reference Range Interpretation [...] morph. normal RBC code = morphology comment) [facility] diff (reflexed)2022-06-13 11:13:00 Test Item [...] (test code = normal normal platelet morphology) [facility] diff (reflexed)2022-06-13 11:13:00 Test Item [...] (test code = normal normal platelet morphology) [facility] diff (reflexed)2022-06-13 11:13:00 Test Item [...] (test code = normal normal platelet morphology) [facility] diff (reflexed)2022-06-13 11:13:00 Test Item [...] normal normal platelet morphology) [facility] W Auto Differential panel - [id number] 08:26:00 Test Item Value Reference Range Interpretation [...] NRBC# (test code = NRBC#) 0 K/uL [facility] W Auto Differential panel - [id number] 08:26:00 Test Item Value Reference Range Interpretation [...] NRBC# (test code = NRBC#) 0 [facility] - Serum or Plasma [...] U/L 40-130 code = alkaline phosphatase, total) [facility]2022-12-[facility] 08:22:00 Test Item Value Reference Range Interpretation Comments lipase (test code = lipase) 226 U/L 13-60 H [facility] - Serum or Plasma [...] U/L 40-130 code = alkaline phosphatase, total) [facility]2022-12-04 08:22:00 Test Item Value Reference Range Interpretation Comments lipase (test code = lipase) 226 U/L 13-60 H [facility] - Serum or Plasma [...] U/L 40-130 code = alkaline phosphatase, total) [facility]2022-12-03 04:36:00 Test Item Value Reference Range Interpretation Comments lipase (test code = lipase) 102 U/L 13-60 H [facility]2022-12-03 04:36:00 Test Item Value Reference Range Interpretation Comments lipase (test code = lipase) 102 U/L 13-60 H [facility] - Serum or Plasma [...] U/L 40-130 code = alkaline phosphatase, total) [facility]2022-12-03 04:36:00 Test Item Value Reference Range Interpretation Comments lipase (test code = lipase) 102 U/L 13-60 H [facility]2022-12-03 04:36:00 Test Item Value Reference Range Interpretation Comments lipase (test code = lipase) 102 U/L 13-60 H [facility] W Auto Differential panel - [id number] 04:18:00 Test Item Value Reference Range Interpretation [...] NRBC# (test code = NRBC#) 0 K/uL [facility] W Auto Differential panel - [id number] 04:18:00 Test Item Value Reference Range Interpretation [...] NRBC# (test code = NRBC#) 0 K/uL [facility]22-[facility] 08:39:00 Test Item Value Reference Range Interpretation Comments LDH (test code = LDH) 457 U/L 135-225 H [facility]22-[facility] 08:39:00 Test Item Value Reference Range Interpretation Comments LDH (test code = LDH) 457 U/L 135-225 [facility] [id number] 08:26:00 Test Item Value Reference Range Interpretation Comments lactic acid (test code = lactic 1.12 mmol/L 0.5-2.2 acid) [facility] [id number] 08:26:00 Test Item Value Reference Range Interpretation Comments lactic acid (test code = lactic 1.12 mmol/L 0.5-2.2 acid) [facility]2022-12-02 07:47:00 Test Item Value Reference Range Interpretation Comments lipase (test code = lipase) 136 U/L 13-60 H [facility]2022-12-02 07:47:00 Test Item Value Reference Range Interpretation Comments lipase (test code = lipase) 136 U/L 13-60 H [facility] - Serum or Plasma [...] U/L 40-130 code = alkaline phosphatase, total) [facility] - Serum or Plasma [...] U/L 40-130 code = alkaline phosphatase, total) [facility] diff (reflexed)2022-06-11 07:30:00 Test Item Value Reference [...] (test code = normal normal platelet morphology) [facility] diff (reflexed)2022-06-11 07:30:00 Test Item Value Reference [...] normal normal platelet morphology) [facility] W Auto Differential panel - [id number] 07:23:00 Test Item Value Reference Range Interpretation [...] morph. normal RBC code = morphology comment) [facility] W Auto Differential panel - [id number] 07:23:00 Test Item Value Reference Range Interpretation [...] morph. normal RBC code = morphology comment) [facility] panel - Arterial [id number] 15:03:00 Test Item Value Reference Range Interpretation [...] (test code = O2 7.9 mmol/L content) [facility] panel - Arterial [id number] 15:03:00 Test Item Value Reference Range Interpretation [...] (test code = O2 7.9 mmol/L content) [facility] [id number] 13:03:00 Test Item Value Reference Range Interpretation Comments blood culture (test code = final report. blood culture) [facility] [id number] 13:03:00 Test Item Value Reference Range Interpretation Comments blood culture (test code = final report. blood culture) [facility]2022-06-10 07:41:00 Test Item Value Reference [...] (test code = normal normal platelet morphology) [facility]2022-06-10 07:41:00 Test Item Value Reference [...] (test code = normal normal platelet morphology) [facility] 07:33:00 Test Item Value Reference Range Interpretation Comments LDH (test code = LDH) 319 U/L 135-225 H [facility]2022-[facility] 07:33:00 Test Item Value Reference Range Interpretation Comments LDH (test code = LDH) 319 U/L 135-225 H [facility] - Serum or Plasma [...] U/L 40-130 code = alkaline phosphatase, total) [facility]2022-12-01 07:28:00 Test Item Value Reference Range Interpretation Comments lipase (test code = lipase) 297 U/L 13-60 H [facility] - Serum or Plasma [...] U/L 40-130 code = alkaline phosphatase, total) [facility]2022-12-01 07:28:00 Test Item Value Reference Range Interpretation Comments lipase (test code = lipase) 297 U/L 13-60 H [facility] [id number] 07:26:00 Test Item Value Reference Range Interpretation Comments lactic acid (test code = lactic 1.18 mmol/L 0.5-2.2 acid) [facility] [id number] 07:26:00 Test Item Value Reference Range Interpretation Comments lactic acid (test code = lactic 1.18 mmol/L 0.5-2.2 acid) [facility] [id number] 06:53:00 Test Item Value Reference Range Interpretation Comments ionized calcium (test code = 4.17 mg/dL 4.34-5.00 L ionized calcium) [facility] W Auto Differential panel - [id number] 06:53:00 Test Item Value Reference Range Interpretation [...] morph. normal RBC code = morphology comment) [facility] [id number] 06:53:00 Test Item Value Reference Range Interpretation Comments ionized calcium (test code = 4.17 mg/dL 4.34-5.00 L ionized calcium) [facility] W Auto Differential panel - [id number] 06:53:00 Test Item Value Reference Range Interpretation [...] morph. normal RBC code = morphology comment) [facility]2022-11-30 06:34:00 Test Item Value Reference Range Interpretation Comments lipase (test code = lipase) 1018 U/L 13-60 H [facility]2022-11-30 06:34:00 Test Item Value Reference Range Interpretation Comments lipase (test code = lipase) 1018 U/L 13-60 H [facility]2022-[facility] 06:33:00 Test Item Value Reference Range Interpretation Comments LDH (test code = LDH) 296 U/L 135-225 H [facility]2022-[facility]-30 06:33:00 Test Item Value Reference Range Interpretation Comments LDH (test code = LDH) 296 U/L 135-225 H [facility] - Serum or Plasma [...] U/L 40-130 code = alkaline phosphatase, total) [facility] - Serum or Plasma [...] code = alkaline phosphatase, total) [facility] [id number] 06:26:00 Test Item Value Reference Range Interpretation Comments lactic acid (test code = lactic 1.00 mmol/L 0.5-2.2 acid) [facility] [id number] 06:26:00 Test Item Value Reference Range Interpretation Comments lactic acid (test code = lactic 1.00 mmol/L 0.5-2.2 acid) [facility] W Auto Differential panel - [id number] 06:16:00 Test Item Value Reference Range Interpretation [...] NRBC# (test code = NRBC#) 0 K/uL [facility] W Auto Differential panel - [id number] 06:16:00 Test Item Value Reference Range Interpretation [...] NRBC# (test code = NRBC#) 0 K/uL [facility] [id number] 05:06:00 Test Item Value Reference Range Interpretation [...] (test code = 6.828 cholesterol risk ratio) [facility] [id number] 05:06:00 Test Item Value Reference Range Interpretation [...] (test code = 6.828 cholesterol risk ratio) [facility]2022-11-29 04:59:00 Test Item Value Reference Range Interpretation Comments lipase (test code = lipase) 1955 U/L 13-60 H [facility]2022-11-29 04:59:00 Test Item Value Reference Range Interpretation Comments lipase (test code = lipase) 1955 U/L 13-60 H [facility]2022-11-29 04:59:00 Test Item Value Reference Range Interpretation Comments lipase (test code = lipase) 1955 U/L 13-60 H [facility]2022-11-29 04:59:00 Test Item Value Reference Range Interpretation Comments lipase (test code = lipase) 1955 U/L 13-60 H [facility] W Auto Differential panel - [id number] 04:07:00 Test Item Value Reference Range Interpretation [...] NRBC# (test code = NRBC#) 0 K/uL [facility] W Auto Differential panel - [id number] 04:07:00 Test Item Value Reference Range Interpretation [...] NRBC# (test code = NRBC#) 0 K/uL [facility] [id number] 18:23:00 Test Item Value Reference Range Interpretation Comments alcohol level (test code = alcohol < 10.0 0.0-10.1 level) [facility] [id number] 18:23:00 Test Item Value Reference Range Interpretation Comments alcohol level (test code = alcohol < 10.0 0.0-10.1 level) [facility]2022-08-23 11:47:00 Test Item Value Reference Range Interpretation Comments POC glucose (test code = 103 mg/dL 65-99 H Ope rator Name: [id number]) Esmail Quratula in [facility] ID: [id number] able: RN Notified Lab Interpretation (test Abnormal code = 91329-9) [facility]2022-08-23 11:47:00 Test Item Value Reference Range Interpretation Comments POC glucose (test code = 103 mg/dL 65-99 H Ope rator Name: [id number]) Esmail Quratula in [facility] ID: [id number] able: RN Notified Lab Interpretation (test Abnormal code = 06168-6) [facility]2022-08-23 11:47:00 Test Item Value Reference Range Interpretation Comments POC glucose (test code = 103 mg/dL 65-99 H Ope rator Name: [id number]) Esmail Quratula in [facility] ID: [id number] able: RN Notified Lab Interpretation (test Abnormal code = 43546-9) [facility]2022-08-23 11:47:00 Test Item Value Reference Range Interpretation Comments POC glucose (test code = 103 mg/dL 65-99 H Ope rator Name: [id number]) Esmail Quratula in [facility] ID: [id number] able: RN Notified Lab Interpretation (test Abnormal code = 28829-5) [facility]2022-08-23 11:47:00 Test Item Value Reference Range Interpretation Comments POC glucose (test code = 103 mg/dL 65-99 H Ope rator Name: [id number]) Esmail Quratula in [facility] ID: [id number] able: RN Notified Lab Interpretation (test Abnormal code = 21029-5) [facility]2022-08-23 11:47:00 Test Item Value Reference Range Interpretation Comments POC glucose (test code = 103 mg/dL 65-99 H Ope rator Name: [id number]) Esmail Quratula in [facility] ID: [id number] able: RN Notified Lab Interpretation (test Abnormal code = 36038-3) [facility]2022-08-23 11:47:00 Test Item Value Reference Range Interpretation Comments POC glucose (test code = 103 mg/dL 65-99 H Ope rator Name: [id number]) Esmail Quratula in [facility] ID: [id number] able: RN Notified Lab Interpretation (test Abnormal code = 16164-0) [facility]2022-08-23 11:47:00 Test Item Value Reference Range Interpretation Comments POC glucose (test code = 103 mg/dL 65-99 H Ope rator Name: [id number]) Esmail Quratula in [facility] ID: [id number] able: RN Notified Lab Interpretation (test Abnormal code = 02744-2) [facility]2022-08-23 11:47:00 Test Item Value Reference Range Interpretation Comments POC glucose (test code = 103 mg/dL 65-99 H Ope rator Name: [id number]) Esmail Quratula in [facility] ID: [id number] able: RN Notified Lab Interpretation (test Abnormal code = 38138-7) [facility]2022-08-23 11:47:00 Test Item Value Reference Range Interpretation Comments POC glucose (test code = 103 mg/dL 65-99 H Ope rator Name: 70562-3) Esmail Quratula in [facility] ID: [id number] able: RN Notified Lab Interpretation (test Abnormal code = 96034-0) [facility]2022-08-23 11:47:00 Test Item Value Reference Range Interpretation Comments POC glucose (test code = 103 mg/dL 65-99 H Ope rator Name: [id number]) Esmail Quratula in [facility] ID: [id number] able: RN Notified Lab Interpretation (test Abnormal code = 28209-1) [facility]2022-08-23 11:47:00 Test Item Value Reference Range Interpretation Comments POC glucose (test code = 103 mg/dL 65-99 H Ope rator Name: [id number]) Esmail Quratula in [facility] ID: [id number] able: RN Notified Lab Interpretation (test Abnormal code = 45971-4) [facility]2022-08-23 11:47:00 Test Item Value Reference Range Interpretation Comments POC glucose (test code = 103 mg/dL 65-99 H Ope rator Name: [id number]) Esmail Quratula in [facility] ID: [id number] able: RN Notified Lab Interpretation (test Abnormal code = 64610-6) [facility]2022-08-23 11:47:00 Test Item Value Reference Range Interpretation Comments POC glucose (test code = 103 mg/dL 65-99 H Ope rator Name: [id number]) Esmail Quratula in [facility] ID: [id number] able: RN Notified Lab Interpretation (test Abnormal code = 71172-5) [facility]2022-08-23 11:47:00 Test Item Value Reference Range Interpretation Comments POC glucose (test code = 103 mg/dL 65-99 H Ope rator Name: [id number]) Esmail Quratula in [facility] ID: [id number] able: RN Notified Lab Interpretation (test Abnormal code = 11426-6) [facility]2022-08-23 11:47:00 Test Item Value Reference Range Interpretation Comments POC glucose (test code = 103 mg/dL 65-99 H Ope rator Name: 46465-9) Esmail Quratula in [facility] ID: [id number] able: RN Notified Lab Interpretation (test Abnormal code = 92834-3) [facility]2022-08-23 11:47:00 Test Item Value Reference Range Interpretation Comments POC glucose (test code = 103 mg/dL 65-99 H Ope rator Name: 09138-5) Esmail Quratula in [facility] ID: [id number] able: RN Notified Lab Interpretation (test Abnormal code = 88865-1) [facility]2022-08-23 11:47:00 Test Item Value Reference Range Interpretation Comments POC glucose (test code = 103 mg/dL 65-99 H Ope rator Name: 53354-4) Esmail Quratula in [facility] ID: [id number] able: RN Notified Lab Interpretation (test Abnormal code = 98956-6) [facility]2022-08-23 11:47:00 Test Item Value Reference Range Interpretation Comments POC glucose (test code = 103 mg/dL 65-99 H Ope rator Name: [id number]) Esmail Quratula in [facility] ID: [id number] able: RN Notified Lab Interpretation (test Abnormal code = 84188-0) [facility]2022-08-23 11:47:00 Test Item Value Reference Range Interpretation Comments POC glucose (test code = 103 mg/dL 65-99 H Ope rator Name: [id number]) Esmail Quratula in [facility] ID: [id number] able: RN Notified Lab Interpretation (test Abnormal code = 17765-9) [facility]2022-08-23 11:47:00 Test Item Value Reference Range Interpretation Comments POC glucose (test code = 103 mg/dL 65-99 H Ope rator Name: [id number]) Esmail Quratula in [facility] ID: [id number] able: RN Notified Lab Interpretation (test Abnormal code = 57474-6) [facility]2022-08-23 11:47:00 Test Item Value Reference Range Interpretation Comments POC glucose (test code = 103 mg/dL 65-99 H Ope rator Name: [id number]) Esmail Quratula in [facility] ID: [id number] able: RN Notified Lab Interpretation (test Abnormal code = 52751-8) [facility]2022-08-23 11:47:00 Test Item Value Reference Range Interpretation Comments POC glucose (test code = 103 mg/dL 65-99 H Ope rator Name: [id number]) Esmail Quratula in [facility] ID: [id number] able: RN Notified Lab Interpretation (test Abnormal code = 56326-9) [facility]2022-08-23 11:47:00 Test Item Value Reference Range Interpretation Comments POC glucose (test code = 103 mg/dL 65-99 H Ope rator Name: [id number]) Esmail Quratula in [facility] ID: [id number] able: RN Notified Lab Interpretation (test Abnormal code = 17958-8) [facility]2022-08-23 11:47:00 Test Item Value Reference Range Interpretation Comments POC glucose (test code = 103 mg/dL 65-99 H Ope rator Name: [id number]) Esmail Quratula in [facility] ID: [id number] able: RN Notified Lab Interpretation (test Abnormal code = 14901-8) [facility]2022-08-23 11:47:00 Test Item Value Reference Range Interpretation Comments POC glucose (test code = 103 mg/dL 65-99 H Ope rator Name: 83132-5) Esmail Quratula in [facility] ID: [id number] able: RN Notified Lab Interpretation (test Abnormal code = 02637-1) [facility]2022-08-23 11:47:00 Test Item Value Reference Range Interpretation Comments POC glucose (test code = 103 mg/dL 65-99 H Ope rator Name: [id number]) Esmail Quratula in [facility] ID: [id number] able: RN Notified Lab Interpretation (test Abnormal code = 10463-8) [facility]2022-08-23 11:47:00 Test Item Value Reference Range Interpretation Comments POC glucose (test code = 103 mg/dL 65-99 H Ope rator Name: [id number]) Esmail Quratula in [facility] ID: [id number] able: RN Notified Lab Interpretation (test Abnormal code = 95155-9) [facility] Pre/Post [id number] 20:29:23 Test Item Value Reference Range Interpretation Comments Ventricular rate (test 84 code = 253) Atrial rate (test code = 84 255) DC interval (test code = 172 266) QRSD [...] Emery MD (2064) on 03/01/2022 3:29:18 PM [facility] Pre/Post [id number] 20:29:23 Test Item Value Reference Range Interpretation Comments Ventricular rate (test code = 253) Atrial rate (test code = 255) DC interval (test code = 266) QRSD interval [...] Emery MD (2064) on 03/01/2022 3:29:18 PM [facility] Pre/Post [id number] 20:29:23 Test Item Value Reference Range Interpretation Comments Ventricular rate (test code = 253) Atrial rate (test code = 255) DC interval (test code = 266) QRSD interval [...] Emery MD (2064) on 03/01/2022 3:29:18 PM [facility] Pre/Post [id number] 20:29:23 Test Item Value Reference Range Interpretation Comments Ventricular rate (test code = 253) Atrial rate (test code = 255) DC interval (test code = 266) QRSD interval [...] Emery MD (2064) on 03/01/2022 3:29:18 PM [facility] Pre/Post [id number] 20:29:23 Test Item Value Reference Range Interpretation Comments Ventricular rate (test code = 253) Atrial rate (test code = 255) DC interval (test code = 266) QRSD interval (test code = 260) QT interval (test code = 264) QTC interval (test code = 265) P axis 1 (test code = 267) QRS axis 1 (test code = 268) T wave axis (test code = 270) EKG impression (test Normal sinus code = 273) rhythm-Normal ECG-No previous ECGs available-Electronica lly Signed By Ashok mEery MD (2064) on 03/01/2022 3:29:18 PM [facility] Pre/Post [id number] 20:29:23 Test Item Value Reference Range Interpretation Comments Ventricular rate (test code = 253) Atrial rate (test code = 255) DC interval (test code = 266) QRSD interval [...] Emery MD (2064) on 03/01/2022 3:29:18 PM [facility] Pre/Post [id number] 20:29:23 Test Item Value Reference Range Interpretation Comments Ventricular rate (test code = 253) Atrial rate (test code = 255) DC interval (test code = 266) QRSD interval [...] Emery MD (2064) on 03/01/2022 3:29:18 PM [facility] Pre/Post [id number] 20:29:23 Test Item Value Reference Range Interpretation Comments Ventricular rate (test code = 253) Atrial rate (test code = 255) DC interval (test code = 266) QRSD interval [...] Emery MD (2064) on 03/01/2022 3:29:18 PM [facility] Pre/Post [id number] 20:29:23 Test Item Value Reference Range Interpretation Comments Ventricular rate (test code = 253) Atrial rate (test code = 255) DC interval (test code = 266) QRSD interval [...] Emery MD (2064) on 03/01/2022 3:29:18 PM [facility] Pre/Post [id number] 20:29:23 Test Item Value Reference Range Interpretation Comments Ventricular rate (test code = 253) Atrial rate (test code = 255) DC interval (test code = 266) QRSD interval (test code = 260) QT interval (test code = 264) QTC interval (test code = 265) P axis 1 (test code = 267) QRS axis 1 (test code = 268) T wave axis (test code = 270) EKG impression (test Normal sinus code = 273) rhythm-Normal ECG-No previous ECGs available-Electronica lly Signed By Ashko Emery MD (2064) on 03/01/2022 3:29:18 PM [facility] Pre/Post [id number] 20:29:23 Test Item Value Reference Range Interpretation Comments Ventricular rate (test code = 253) Atrial rate (test code = 255) DC interval (test code = 266) QRSD interval [...] Emery MD (2064) on 03/01/2022 3:29:18 PM [facility] Pre/Post [id number] 20:29:23 Test Item Value Reference Range Interpretation Comments Ventricular rate (test code = 253) Atrial rate (test code = 255) DC interval (test code = 266) QRSD interval [...] Emery MD (2064) on 03/01/2022 3:29:18 PM [facility] Pre/Post [id number] 20:29:23 Test Item Value Reference Range Interpretation Comments Ventricular rate (test code = 253) Atrial rate (test code = 255) DC interval (test code = 266) QRSD interval [...] Emery MD (2064) on 03/01/2022 3:29:18 PM [facility] Pre/Post [id number] 20:29:23 Test Item Value Reference Range Interpretation Comments Ventricular rate (test code = 253) Atrial rate (test code = 255) DC interval (test code = 266) QRSD interval [...] Emery MD (2064) on 03/01/2022 3:29:18 PM [facility] Pre/Post [id number] 20:29:23 Test Item Value Reference Range Interpretation Comments Ventricular rate (test code = 253) Atrial rate (test code = 255) DC interval (test code = 266) QRSD interval [...] Emery MD (2064) on 03/01/2022 3:29:18 PM [facility] Pre/Post [id number] 20:29:23 Test Item Value Reference Range Interpretation Comments Ventricular rate (test code = 253) Atrial rate (test code = 255) DC interval (test code = 266) QRSD interval [...] Emery MD (2064) on 03/01/2022 3:29:18 PM [facility] Pre/Post [id number] 20:29:23 Test Item Value Reference Range Interpretation Comments Ventricular rate (test code = 253) Atrial rate (test code = 255) DC interval (test code = 266) QRSD interval [...] Emery MD ([id number]) on 03/01/2022 3:29:18 PM [facility] Pre/Post [id number] 20:29:23 Test Item Value Reference Range Interpretation Comments Ventricular rate (test 84 code = 253) Atrial rate (test code = 84 255) DC interval (test code = 172 266) QRSD [...] Emery MD ([id number]) on 03/01/2022 3:29:18 PM [facility] Pre/Post [id number] 20:29:23 Test Item Value Reference Range Interpretation Comments Ventricular rate (test 84 code = 253) Atrial rate (test code = 84 255) DC interval (test code = 172 266) QRSD [...] Emery MD (2064) on 03/01/2022 3:29:18 PM [facility] Pre/Post [id number] 20:29:23 Test Item Value Reference Range Interpretation Comments Ventricular rate (test 84 code = 253) Atrial rate (test code = 84 255) DC interval (test code = 172 266) QRSD [...] Emery MD (2064) on 03/01/2022 3:29:18 PM [facility] Pre/Post [id number] 20:29:23 Test Item Value Reference Range Interpretation Comments Ventricular rate (test 84 code = 253) Atrial rate (test code = 84 255) DC interval (test code = 172 266) QRSD [...] Emery MD (2064) on 03/01/2022 3:29:18 PM [facility] Pre/Post [id number] 20:29:23 Test Item Value Reference Range Interpretation Comments Ventricular rate (test 84 code = 253) Atrial rate (test code = 84 255) DC interval (test code = 172 266) QRSD [...] Emery MD (2064) on 03/01/2022 3:29:18 PM [facility] Pre/Post [id number] 20:29:23 Test Item Value Reference Range Interpretation Comments Ventricular rate (test 84 code = 253) Atrial rate (test code = 84 255) DC interval (test code = 172 266) QRSD [...] Emery MD (2064) on 03/01/2022 3:29:18 PM [facility] Pre/Post [id number] 20:29:23 Test Item Value Reference Range Interpretation Comments Ventricular rate (test 84 code = 253) Atrial rate (test code = 84 255) DC interval (test code = 172 266) QRSD [...] Emery MD (2064) on 03/01/2022 3:29:18 PM [facility] Pre/Post [id number] 20:29:23 Test Item Value Reference Range Interpretation Comments Ventricular rate (test 84 code = 253) Atrial rate (test code = 84 255) DC interval (test code = 172 266) QRSD [...] Emery MD (2064) on 03/01/2022 3:29:18 PM [facility] Pre/Post [id number] 20:29:23 Test Item Value Reference Range Interpretation Comments Ventricular rate (test 84 code = 253) Atrial rate (test code = 84 255) DC interval (test code = 172 266) QRSD [...] Emery MD (2064) on 03/01/2022 3:29:18 PM [facility] Pre/Post [id number] 20:29:23 Test Item Value Reference Range Interpretation Comments Ventricular rate (test 84 code = 253) Atrial rate (test code = 84 255) DC interval (test code = 172 266) QRSD [...] Emery MD (2064) on 03/01/2022 3:29:18 PM [facility] Pre/Post [id number] 20:29:23 Test Item Value Reference Range Interpretation Comments Ventricular rate (test code = 253) Atrial rate (test code = 255) DC interval (test code = 266) QRSD interval [...] MD (2064) on 03/01/2022 3:29:[address] [facility] [Presence] in Respiratory specimen by TENZIN with probe [id number] 18:27:20 Test Item Value Reference Range Interpretation Comments SARS-CoV-2 (COVID-19) RNA Not detected [Presence] in Respiratory specimen by TENZIN with probe detection (test code = 41852-0) Whether patient is employed in a Unknown healthcare setting (test code = 24820-0) Whether the patient has symptoms Unknown related to condition of interest (test code = 39112-8) Whether the patient was Unknown hospitalized for condition of interest (test code = 25619-3) Whether the patient was admitted Unknown to intensive care unit (ICU) for condition of interest (test code = 98005-9) Whether patient resides in a Unknown congregate care setting (test code = 86265-7) status (test code = Unknown 03148-9) Date and time of symptom onset Unknown (test code = 92443-5) [facility] RNA [Presence] in Respiratory specimen by TENZIN with probe [id number] 01:00:31 Test Item Value Reference Range Interpretation Comments SARS-CoV-2 (COVID-19) RNA Not detected [Presence] in Respiratory specimen by TENZIN with probe detection (test code = 22737-0) Whether patient is employed in a Unknown healthcare setting (test code = 42387-5) Whether the patient has symptoms Unknown related to condition of interest (test code = 11443-1) Whether the patient was Unknown hospitalized for condition of interest (test code = 41775-0) Whether the patient was admitted Unknown to intensive care unit (ICU) for condition of interest (test code = 88756-7) Whether patient resides in a Unknown congregate care setting (test code = 89301-8) status (test code = Unknown 60712-7) Date and time of symptom onset Unknown (test code = 03858-3) [facility] and SARS CoV + SARS CoV 2 Ag panel, [place], upper respiratory [id number] 10:40:00 Test Item Value Reference Range Interpretation Comments RAPID SARS COV (test code = RAPID negative SARS COV) RAPID FLU A (test code = RAPID FLU negative A) RAPID FLU B (test code = RAPID FLU negative B) [facility] - Serum or [id number] 06:34:00 Test Item Value Reference Range Interpretation Comments cholesterol level (test code = 169 mg/dL 150-200 cholesterol level) triglycerides level (test code = 93 mg/dL <150 triglycerides level) HDL cholesterol (test code = HDL 52 mg/dL >55 L cholesterol) LDL cholesterol direct (test code = 108 mg/dL <100 H LDL cholesterol direct) cholesterol risk ratio (test code = 3.250 cholesterol risk ratio) [facility]Mass/volume] in [id number] 00:00:00 Test Item Value Reference Range Interpretation Comments Hemoglobin A1c [Mass/volume] in Blood 5.3 % 4.0-6.0 (test code = 69901-4) [facility]Units/volume] in Serum or [id number] 00:00:00 Test Item Value Reference Range Interpretation Comments Thyrotropin [Units/volume] in 0.44 uIU/mL 0.36-3.74 Serum or Plasma (test code = 3016-3) [facility]
[2022-11-12] MEDS ORDERED: Phenylephrine HCl 10 MG/ML 1 ML VIAL ONE (06:28)
[2022-11-12] MEDS ORDERED: WATER FOR INJ,STERILE 10 ML ONE (06:40)
--- NOTE | 2022-11-12 07:27 | EDPHYS ---
Physician Documentation [facility] Name: Francesco Avelar Age: 27 yrs Sex: Male : 1995 Arrival Date: 11/12/2022 Time: 05:49 Bed 19 Private MD: ED Physician Jose Cortes HPI: 11/12 07:36 This 27 yrs old Male presents to ER via Ambulatory with complaints of kdr PROLONGED ERECTION. 07:36 Patient has many visits for priapism in the past months. He states that normally he is kdr able to resolve the issue prior to arrival by sitting on a hard chair and acting quickly. Today however he was slow to respond and subsequently is now here with the priapism and always similar to what he is presented with previously. Patient otherwise without issue in the ED. Onset: The symptoms/episode began/occurred just prior to arrival. Severity of symptoms: At their worst the symptoms were mild moderate just prior to arrival, in the emergency department the symptoms are unchanged. The patient has been recently seen at the [facility] Emergency Department, this week. Historical: - Allergies: 06:12 Imitrex; ll3 - Home Meds: 06:12 terbutaline Oral [Active]; ll3 - PMHx: 06:12 adhd; Asthma; Bipolar disorder; priapism; ll3 - PSHx: 06:12 L5 S1 laminectomy; ll3 - Immunization history:: Client reports receiving the 2nd dose of the Covid vaccine. - Social history:: Smoking status: Patient reports the use of cigarette tobacco products, denies chronic smoking, but will smoke occasionally. ROS: 07:36 Constitutional: Negative for fever, chills, and weight loss. kdr 07:36 : Positive for urinary symptoms, penile pain, Obvious priapism. Exam: 07:36 Constitutional: This is a well developed, well nourished patient who is awake, alert, kdr and in no acute distress. 07:36 : Male external genitalia: Patient is not circumisioned. swelling: penile, that is moderate. Vital Signs: 06:11 BP 136 / 85; Pulse 100; Resp 16; Temp 98.3(O); Pulse Ox 100% on R/A; Weight 100.24 kg ll3 (R); Height 5 ft. 11 in. (R); Pain 5/10; 07:15 BP 136 / 84; Pulse 95; Resp 18 S; Pulse Ox 99% on R/A; kc6 06:11 Body Mass Index 30.82 (100.24 kg, 180.34 cm) ll3 06:11 Pain Scale: Adult ll3 Procedures: 07:36 Performed Priapism reduction. 1 mL of a 10 mg/mL solution of phenylephrine was mixed kdr with 9 mL of sterile water. The patient's penis was then injected with 1/2 mL and the 10 o'clock position about 2 cm up from the base. Patient had moderate results with the initial injection but not complete resolution. Patient then was injected at subsequent time with the same of amount of fluid (1/2 mL) at the 2 o'clock position which subsequently resolved the priapism to his satisfaction. Patient tolerated well. MDM: 07:26 Patient medically screened. kdr 07:36 Data reviewed: vital signs, nurses notes. kdr Administered Medications: 06:51 Drug: Phenylephrine IV 10 mg {Note: administered by provider .} Route: IV; Rate: as6 calculated rate; Site: Other; Disposition Summary: 11/12/22 07:26 Discharge Ordered Location: Home kdr Problem: new kdr Symptoms: have improved kdr Condition: Stable kdr Diagnosis - Priapism, unspecified kdr Followup: kdr - With: Private Physician - When: 2 - 3 days - Reason: If symptoms return, Further diagnostic work-up, Recheck today's complaints, Continuance of care, Re-evaluation by your physician Discharge Instructions: - Priapism kdr - Discharge Summary Sheet kc6 Forms: - Medication Reconciliation Form kdr - Thank You Letter kdr - Work release form kc6 Signatures: Jose Cortes MD MD kdr Ziggy Mittal, RN RN as6 Gavin Galan RN RN ll3
--- NOTE | 2022-11-12 07:27 | ER ---
Nurse's Notes [facility] Name: Francesco Avelar Age: 27 yrs Sex: Male : 1995 Arrival Date: 11/12/2022 Time: 05:49 Bed 19 Private MD: Diagnosis: Priapism, unspecified Presentation: 11/12 06:11 Chief complaint: Patient states: C/o prolonged erection since about 0240. Coronavirus ll3 screen: Vaccine status: Patient reports receiving the 2nd dose of the covid vaccine. At this time, the client does not indicate any symptoms associated with coronavirus-19. Ebola Screen: No symptoms or risks identified at this time. Initial Sepsis Screen: Does the patient meet any 2 criteria? HR > 90 bpm. No. Patient's initial sepsis screen is negative. Does the patient have a suspected source of infection? No. Patient's initial sepsis screen is negative. Risk Assessment: Do you want to hurt yourself or someone else? Patient reports no desire to harm self or others. Onset of symptoms was November 12, 2022 at 02:40. 06:11 Method Of Arrival: Ambulatory ll3 06:11 Acuity: MCKENZIE 3 ll3 Triage Assessment: 06:12 General: Appears uncomfortable, Behavior is calm, cooperative. Pain: Complains of pain ll3 in pelvis Pain does not radiate. Pain currently is 5 out of 10 on a pain scale. Pain began 4 hours ago. Is continuous. Neuro: Level of Consciousness is awake, alert, obeys commands, Oriented to person, place, time, situation. : Reports Prolonged erection. Derm: Skin is pink, warm \T\ dry. Historical: - Allergies: 06:12 Imitrex; ll3 - Home Meds: 06:12 terbutaline Oral [Active]; ll3 - PMHx: 06:12 adhd; Asthma; Bipolar disorder; priapism; ll3 - PSHx: 06:12 L5 S1 laminectomy; ll3 - Immunization history:: Client reports receiving the 2nd dose of the Covid vaccine. - Social history:: Smoking status: Patient reports the use of cigarette tobacco products, denies chronic smoking, but will smoke occasionally. Screenin:00 [facility] ED Fall Risk Assessment (Adult) History of falling in the last 3 months, kc6 including since admission No falls in past 3 months (0 pts) Confusion or Disorientation No (0 pts) Intoxicated or Sedated No (0 pts) Impaired Gait No (0 pts) Mobility Assist Device Used No (0 pt) Altered Elimination No (0 pt) Score/Fall Risk Level 0 - 2 = Low Risk Oriented to surroundings, Maintained a safe environment, Educated pt \T\ family on fall prevention, incl call for assistance when getting out of bed, Assessed \T\ reinforced patient's understanding of fall precautions, Hourly rounding (assess needs \T\ fall precautionary measures) done. Abuse screen: Denies threats or abuse. Denies injuries from another. Nutritional screening: No deficits noted. Tuberculosis screening: No symptoms or risk factors identified. Assessment: 06:12 General: See triage assessment. ll3 07:00 Reassessment: Patient appears in no apparent distress at this time. Patient and/or kc6 family updated on plan of care and expected duration. Pain level reassessed. Patient is alert, oriented x 3, equal unlabored respirations, skin warm/dry/pink. Vital Signs: 06:11 BP 136 / 85; Pulse 100; Resp 16; Temp 98.3(O); Pulse Ox 100% on R/A; Weight 100.24 kg ll3 (R); Height 5 ft. 11 in. (R); Pain 5/10; 07:15 BP 136 / 84; Pulse 95; Resp 18 S; Pulse Ox 99% on R/A; kc6 06:11 Body Mass Index 30.82 (100.24 kg, 180.34 cm) ll3 06:11 Pain Scale: Adult ll3 ED Course: 05:51 Patient arrived in ED. jj6 06:05 Jose Cortes MD is Attending Physician. kdr 06:12 Triage completed. ll3 06:12 Arm band placed on Patient placed in an exam room, on a stretcher, on pulse oximetry. ll3 07:00 Report received from Gavin Galan RN. kc6 07:00 Patient has correct armband on for positive identification. Placed in gown. Bed in low kc6 position. Call light in reach. Side rails up X2. 07:29 No provider procedures requiring assistance completed. Patient did not have IV access kc6 during this emergency room visit. Administered Medications: 06:51 Drug: Phenylephrine IV 10 mg {Note: administered by provider .} Route: IV; Rate: as6 calculated rate; Site: Other; Medication: 07:30 VIS not applicable for this client. kc6 Outcome: 07:26 Discharge ordered by . kdr 07:30 Discharged to home ambulatory. kc6 07:30 Condition: improved 07:30 Discharge instructions given to patient, Instructed on discharge instructions, follow up and referral plans. Demonstrated understanding of instructions, follow-up care. 07:30 Patient left the ED. kc6 Signatures: Jose Cortes MD MD kdr Jeffries, Jennifer jj6 Ziggy Mittal, RN RN as6 Gavin Galan RN RN ll3 Ina Julio RN RN kc6
[2022-11-12 07:35] VITALS: TEMP 98.3
[2022-11-12 07:36] VITALS: BP 136/84; O2SAT 99
== END 2022-11-12 07:30 | disposition home or self-care (01) ==
LOC: ER 05:49
DX: N48.30 Priapism, unspecified (principal); Z88.8 Allergy status to other drugs, medicaments and biological substances
CPT/HCPCS: 96374; 99284; J2370

== ENCOUNTER 2023-01-12 13:12 | Emergency (ER) | payer BC, OTHER ==
--- OUTSIDE RECORDS SUMMARY | 2023-01-12 13:24 | XMS REPORT | Continuity of Care Document ---
:1995 Author Organization [facility] t Address [address] [facility] [place]. [address] [place] [address] Support Name Relationship Address Phone BALA CLARK Unavailable [address] [phone] [place] [address] GREGORY DUMONT Unavailable [address] [phone] [place] [address] PRISCILA MAGANA MD Emergency Provider [address] [place] [address] PHYSICIAN, NO Primary Care Physician Unavailable Unavailab CLAIR Art Next of Kin [address] [place] [address] MD PRISCILA MAGANA Emergency Provider [address] [place] [address] MD [facility] Primary Care Physician [address] [place] [address] MD CELSA MUNGUIA Emergency Provider [address] [place] [address] MD BARBARA VELAZQUEZ Emergency Provider [address] [place] [address] MD SHI ANAYA Emergency Provider [address] [place] [address] DO ABRAHAM MCCRACKEN Admitting Provider [address] [place] [address] MD HARRISON RICO Emergency Provider [address] [place] [address] MD ALEXA TORRES Emergency Provider [address] [place] [address] MD JASON DUNAWAY Emergency Provider [address] [place] [address] [place] [address] Care Team Providers Name Role Phone Ronnell Perry MD Primary Care Physician Ronnell Perry Attending Clinician Unavailable NAHUN KHANNA Attending Clinician Unavailable MAYNOR ROMERO Attending Clinician Unavailable RICH POND Attending Clinician Unavailable Gloria Attending Clinician Unavailable Ronnell Perry Attending Clinician Unavailable BRENDA MALDONADO Attending Clinician Unavailable Tatiana Xavier MA Attending Clinician Unavailable Maynor Romero MD Attending Clinician Rich Salgado Attending Clinician Neymar Barron Attending Clinician Unavailable Bonita Attending Clinician Unavailable JASON DUNAWAY Attending Clinician Unavailable SHI ANAYA Attending Clinician Unavailable Alexa Torres Attending Clinician Unavailable JULIUS SHANKAR Attending Clinician Unavailable Mallory Jiang RN Attending Clinician Unavailable Alfreda Duvall MD Attending Clinician Anna Leahy Attending Clinician Micaela Bedolla NP Attending Clinician Parish Chamorro MD Attending Clinician Basilio Diallo MD Attending Clinician ANDREIA_DOREEN Attending Clinician Unavailable HARRISON RICO Attending Clinician Unavailable Berenice Attending Clinician Unavailable KIA SIMPSON Attending Clinician Unavailable Abraham Mccracken Attending Clinician Unavailable BARBARA VELAZQUEZ Attending Clinician Unavailable CELSA MUNGUIA Attending Clinician Unavailable ZungracyaJuliaS Attending Clinician Unavailable PRISCILA MAGANA Attending Clinician Unavailable Jb Attending Clinician Unavailable KENNETH ASCENCIO Attending Clinician Unavailable SUNNY CURRY Attending Clinician Unavailable CEDRIC TURNER Attending Clinician Unavailable NUNO REED Attending Clinician Unavailable PARKER KENT Attending Clinician Unavailable THAKKAR, WASIM A Attending Clinician Unavailable ZBIGNIEW DIAS Attending Clinician Unavailable Duarte_Sundar Admitting Clinician Unavailable Orlando_F Admitting Clinician Unavailable Ronnell Perry Admitting Clinician Unavailable MAYNOR ROMERO Admitting Clinician Unavailable BASILIO DIALLO Admitting Clinician Unavailable ANDREIA_DOREEN Admitting Clinician Unavailable Calvin_A Admitting Clinician Unavailable Abraham Mccracken Admitting Clinician Unavailable Orlando_S Admitting Clinician Unavailable Denny_Chinyere Admitting Clinician Unavailable Payers Payer Name Policy Type Policy Number Effective Date Expiration Date S [place] [id number] 2014 (PPO) 00:00:00 [facility] [id number] 2019 [place] 00:00:00 (MED[place] [id number] [place] [facility] - [id number] REPLACED BY [facility]) Problems Condition Condition Condition Status Onset Resolution Last Treating Co mments Source Name Details Category Date Date Treatment Clinician Date Scrotal Scrotal Problem Active [facility] 5-18 da 00:00: Medical 00 Group Lumbar Lumbar Problem Active [facility] post-joan Post-joan 5-18 da ectomy ectomy 00:00: Medical syndrome Syndrome 00 Group Asthma Asthma Problem Active 2021-07 [facility] 2-20 da 00:00: Medical 00 Group Pancreatit Pancreatit Problem Active 2021-07 M [facility] is is 2-16 da 00:00: Medical 00 Group Spinal Spinal Disease Active [facility] stenosis stenosis 03-02 st of of 00:00: Hospita lumbosacra lumbosacra 00 l l region l region Left Left Disease Active Overview: Method i lumbar lumbar 8-[address] radiculiti radiculiti 00:00: g of this Hospita s s 00 note l might be different from the original. Added automatic ally from request for surgery [id number] Priapism Priapism Disease Active Metho di 8-17 [...] Source Name Type Date Date Clinician Michelle Propensi Active GI 2020-07 VOMITING Meth joanna porras ty to Intolerance 15 st adverse 00:00: Hospita reaction 00 l s to drug Imitrex Allergy Active [facility] to da substanc Medical e Group sumatrip sumatrip Active Unknown Commo n porras porras [facility] - [facility] Family History Family Member Diagnosis Comments Start Date Stop Date Source Natural father Doan's palsy [facility] Natural mother Fibromyalgia [facility] Social History Social Habit Start Date Stop Date Quantity Comments Source [facility] Sexual [facility] History of Tobacco Current Smoker Co [facility] - Use [facility] Alcohol intake 2022-03-03 2022-03-03 Current drinker [facility] dist 00:00:00 00:00:00 of alcohol Hospital (finding) History of Social 2022-03-03 2022-03-[address] function 00:00:00 00:00:00 Hospital Tobacco use and 2022-03-01 2022-03-01 Smokeless [facility] exposure 00:00:00 00:00:00 tobacco non-user Hospital Alcohol Comment 2022-03-01 2022-03-01 EVERY OTHER Methodis t 00:00:00 00:00:00 [facility] Sex Assigned At [birth year] [facility] 00:00:00 00:00:00 Hospital Smoking Status Start Date Stop Date Source Heavy Tobacco Smoker [facility] Current Smoker 2022-05-19 00:00:00 [facility] Medications Ordered Filled Start Stop Current [...] methylPREDN 2021-0 2021- No [facility] IS[facility]one [facility] (MEDROL 00:00: 04:59 by package Hos félix DOSEPAK) 4 00 :00 instructio l mg tablet ns budesonide- 2021-0 Yes 2{puff} Q.5D Inhale 2 [...] 10 other day. l on inhaler acetaminoph 1{tbl} Q6H Take 1 Method[facility] en-codeine [...] up to 5 days .acute pain. traMADoL 08204 50mg Q6H Take 1 Metho di (ULTRAM) [...] days .acute pain. traMADoL 2022-0 2022- [place] [address] 50mg Q6H Take 1 Metho di (ULTRAM) 50 8-19 08-25 tablet (50 s t mg tablet 00:00: 04:59 mg total) Ho spita 00 :00 by mouth l every 6 (six) hours as needed for moderate pain for up to 5 days .acute pain. traMADoL 86559 50mg Q6H Take 1 Metho di (ULTRAM) 50 8-19 08-25 tablet (50 s t mg tablet 00:00: 04:59 mg total) Ho spita 00 :00 by mouth l every 6 (six) hours as needed for moderate pain for up to 5 days .acute pain. traMADoL 51653 50mg Q6H Take 1 Metho di (ULTRAM) 50 8-19 08-25 tablet (50 s t mg tablet 00:00: 04:59 mg total) Ho spita 00 :00 by mouth l every 6 (six) hours as needed for moderate pain for up to 5 days .acute pain. traMADoL 56497 50mg Q6H Take 1 Metho di (ULTRAM) [...] up to 5 days .acute pain. traMADoL 50493 50mg Q6H Take 1 Metho di (ULTRAM) [...] 5 days .acute pain. traMADoL 2021- [place] [id number] 50mg Q6H Take 1 Metho di (ULTRAM) 50 8-19 08-25 tablet (50 s t mg tablet 00:00: 04:59 mg total) Ho spita 00 :00 by mouth l every 6 (six) hours as needed for moderate pain for up to 5 days .acute pain. traMADoL 2021- No [id number] 50mg Q6H Take 1 Metho di (ULTRAM) 50 8-19 08-25 tablet (50 s t mg tablet 00:00: 04:59 mg total) Ho spita 00 :00 by mouth l every 6 (six) hours as needed for moderate pain for up to 5 days .acute pain. traMAD[place] 2021- [place] [id number] 50mg Q6H Take 1 Metho di (ULTRAM) 50 8-19 08-25 tablet (50 s t mg tablet 00:00: 04:59 mg total) Ho spita 00 :00 by mouth l every 6 (six) hours as needed for moderate pain for up to 5 days .acute pain. traMADoL 2021- [place] [id number] 50mg Q6H Take 1 Metho di (ULTRAM) [...] l extended ONCE A rel syring MONTH li2021- No INJECT ONE Met hodi Maintena 5-18 [...] MONTH Abilify 2021- No INJECT ONE Met [facility] 11-25 (1) UNIT st 400 mg 00:00: 00:00 INTO THE Hospit a suspension, 00 :00 MUSCLE l extended ONCE A rel syring MONTH 2021- No INJECT ONE [facility] 11-25 (1) UNIT st 400 mg 00:00: 00:00 INTO THE Hospit a suspension, 00 :00 MUSCLE l extended ONCE A rel syring MONTH 2021- No INJECT ONE [facility] 11-25 (1) UNIT st 400 mg 00:00: 00:00 INTO THE Hospit a suspension, 00 :00 MUSCLE l extended ONCE A rel syring MONTH 2021- No INJECT ONE [facility] [...] by needed. needed. inhalation route as needed. Diflucan Diflucan No 1 Q1D Diflucan [facility] 150 mg 150 mg 150 mg da tablet Take tablet Take tablet Medical 1 tablet 1 tablet Take 1 Group every day every day tablet by oral by oral every day route for route for by oral 10 days. 10 days. route for 10 days. levalbutero levalbutero No levalbuter [facility] l HFA 45 l HFA 45 ol HFA 45 da mcg/actuati mcg/actuati mcg/actuat Medical on aerosol on aerosol ion Sumi up inhaler inhaler aerosol INHALE 2 INHALE 2 inhaler PUFFS EVERY PUFFS EVERY INHALE 2 6 HOURS BY 6 HOURS BY PUFFS INHALATION INHALATION EVERY 6 ROUTE ROUTE HOURS BY NEEDED. NEEDED. INHALATION ROUTE NEEDED. Protonix 40 Protonix 40 No 1 Q1D Protonix [facility] mg mg 40 mg da tablet,ayana tablet,ayana tablet,del Medical yed release yed release ayed G roup Take 1 Take 1 release tablet tablet Take 1 every day every day tablet by oral by oral every day route for route for by oral 90 days. 90 days. route for 90 days. sildenafil sildenafil No sildenafil [facility] (pulmonary (pulmonary (pulmonary da hypertensio hypertensio hypertensi Medical n) 20 mg n) 20 mg on) 20 mg Gr oup tablet TAKE tablet TAKE tablet ONE (1) ONE (1) TAKE ONE TABLET(S) TABLET(S) (1) BY MOUTH BY MOUTH TABLET(S) ONCE A DAY. ONCE A DAY. BY MOUTH ONCE A DAY. Sudafed PRN Sudafed PRN No Sudafed [facility] PRN da Medical Group Symbicort Symbicort No 2puff(s BID Symbicort [facility] [...] (1) BY MOUTH BY MOUTH TABLET(S) EVERY 30 EVERY 30 BY MOUTH MINUTES MINUTES EVERY 30 DIRECTED. DIRECTED. MINUTES MAX DOSE_ 2 MAX DOSE_ 2 DIRECTED. TABLETS. TABLETS. MAX DOSE_ 2 TABLETS. Diflucan Diflucan No 1 Q1D Diflucan [facility] 150 mg 150 mg 150 mg da tablet Take tablet Take tablet Medical 1 tablet 1 tablet Take 1 Group every day every day tablet by oral by oral every day route for route for by oral 10 days. 10 days. route for 10 days. pantoprazol pantoprazol No pantoprazo [facility] e 40 mg e 40 mg le 40 mg da tablet,ayana tablet,ayana tablet,del Medical yed release yed release ayed G roup TAKE 1 TAKE 1 release TABLET TABLET TAKE 1 EVERY DAY EVERY DAY TABLET BY ORAL BY ORAL EVERY DAY ROUTE FOR ROUTE FOR BY ORAL 90 DAYS. 90 DAYS. ROUTE FOR 90 DAYS. sildenafil sildenafil No sildenafil [facility] (pulmonary (pulmonary (pulmonary da hypertensio hypertensio hypertensi Medical n) 20 mg n) 20 mg on) 20 mg Gr oup tablet TAKE tablet TAKE tablet ONE (1) ONE (1) TAKE ONE TABLET(S) TABLET(S) (1) BY MOUTH BY MOUTH TABLET(S) ONCE A DAY. ONCE A DAY. BY MOUTH ONCE A DAY. sulfamethox sulfamethox No sulfametho [facility] azole 800 azole 800 xazole 800 da mg-trimetho mg-trimetho mg-trimeth Medical prim 160 mg prim 160 mg oprim 160 Group tablet TAKE tablet TAKE mg tablet ONE (1) ONE (1) TAKE ONE TABLET(S) TABLET(S) (1) BY MOUTH BY MOUTH TABLET(S) TWICE A TWICE A BY MOUTH DAY. DAY. TWICE A DAY. Symbicort Symbicort No 2puff(s BID Symbicort [facility] [...] (1) BY MOUTH BY MOUTH TABLET(S) EVERY 30 EVERY 30 BY MOUTH MINUTES FOR MINUTES FOR EVERY 30 2 DOSES 2 DOSES MINUTES MAX. MAX. FOR 2 DOSES MAX. tramadol 50 tramadol 50 No tramadol [facility] mg tablet mg tablet 50 mg da TAKE ONE TAKE ONE tablet Medic al (1) TABLET (1) TABLET TAKE ONE Group EVERY 6 TO EVERY 6 TO (1) TABLET 8 HOURS BY 8 HOURS BY EVERY 6 TO ORAL ROUTE ORAL ROUTE 8 HOURS BY NEEDED NEEDED ORAL ROUTE FOR 10 FOR 10 NEEDED DAYS. DAYS. FOR 10 DAYS. Xopenex HFA Xopenex HFA No Xopenex [facility] 45 45 HFA 45 da mcg/actuati mcg/actuati mcg/actuat Medical on aerosol on aerosol ion Sumi up inhaler inhaler aerosol INHALE 2 INHALE 2 inhaler PUFFS EVERY PUFFS EVERY INHALE 2 6 HOURS BY 6 HOURS BY PUFFS INHALATION INHALATION EVERY 6 ROUTE ROUTE HOURS BY NEEDED FOR NEEDED FOR INHALATION 30 DAYS. 30 DAYS. ROUTE NEEDED FOR 30 DAYS. Immunizations Ordered Immunization Filled Immunization Date Status Commen ts Source Name Name Td (adult) Td (adult) 2022-11-26 Completed [facility] preservative free preservative free 12:13:00 Medical Group PFIZER COVID-19 MRNA 2020-10-16 Completed [facility] VACCINATION 00:00:00 [facility] PFIZER COVID-19 MRNA 2020-10-16 Completed [facility] odist VACCINATION 00:00:00 [facility] PFIZER COVID-19 MRNA 2020-10-16 Completed [facility] odist VACCINATION 00:00:00 [facility] PFIZER COVID-19 MRNA 2020-10-16 Completed Meth odist VACCINATION 00:00:00 [facility] PFIZER COVID-19 MRNA 2020-10-16 Completed Meth odist VACCINATION 00:00:00 [facility] PFIZER COVID-19 MRNA 2020-10-16 Completed Meth odist VACCINATION 00:00:00 [facility] PFIZER COVID-19 MRNA 2020-10-16 Completed Meth odist VACCINATION 00:00:00 [facility] PFIZER COVID-19 MRNA 2020-10-16 Completed Meth odist VACCINATION 00:00:00 [facility] PFIZER COVID-19 MRNA 2020-10-16 Completed Meth odist VACCINATION 00:00:00 [facility] PFIZER COVID-19 MRNA 2020-10-16 Completed Meth odist VACCINATION 00:00:00 [facility] COVID-19 MRNA 2020-10-16 Completed Meth odist VACCINATION 00:00:00 [facility] PFIZER COVID-19 MRNA 2020-10-16 Completed [facility] VACCINATION 00:00:00 Hospital PFIZER COVID-19 MRNA 2020-10-16 Completed [facility] od[facility] VACCINATION 00:00:00 Hospital PFIZER COVID-19 MRNA 2020-10-16 Completed Meth odist VACCINATION 00:00:00 [facility] PFIZER COVID-19 MRNA 2020-10-16 Completed Meth odist VACCINATION 00:00:00 [facility] PFIZER COVID-19 MRNA 2020-10-16 Completed Meth odist VACCINATION 00:00:00 [facility] PFIZER COVID-19 MRNA 2020-10-16 Completed Meth odist VACCINATION 00:00:00 [facility] PFIZER COVID-19 MRNA 2020-10-16 Completed Meth odist VACCINATION 00:00:00 [facility] PFIZER COVID-19 MRNA 2020-10-16 Completed Meth odist VACCINATION 00:00:00 [facility] PFIZER COVID-19 MRNA 2020-10-16 Completed Meth odist VACCINATION 00:00:00 [facility] PFIZER COVID-19 MRNA 2020-10-16 Completed Meth odist VACCINATION 00:00:00 [facility] PFIZER COVID-19 MRNA 2020-10-16 Completed Meth odist VACCINATION 00:00:00 [facility] PFIZER COVID-19 MRNA 2020-10-16 Completed Meth odist VACCINATION 00:00:00 [facility] PFIZER COVID-19 MRNA 2020-10-16 Completed Meth odist VACCINATION 00:00:00 [facility] PFIZER COVID-19 MRNA 2020-10-16 Completed Meth odist VACCINATION 00:00:00 [facility] PFIZER COVID-19 MRNA 2020-10-16 Completed Meth odist VACCINATION 00:00:00 [facility] PFIZER COVID-19 MRNA 2020-10-16 Completed Meth odist VACCINATION 00:00:00 [facility] PFIZER COVID-19 MRNA 2020-10-16 Completed [facility] odist VACCINATION 00:00:00 [facility] PFIZER COVID-19 MRNA 2020-10-16 Completed [facility] odist VACCINATION 00:00:00 [facility] COVID-19, mRNA, COVID-19, mRNA, 2020-10-16 Completed Cornelius laila LNP-S, PF, 30 LNP-S, PF, 30 00:00:00 Medical Group mcg/0.3 mL dose mcg/0.3 mL dose ([employer]) - (Pf[employer]) - ML ML PFIZER COVID-19 MRNA 2020-09-25 Completed Meth odist VACCINATION 00:00:00 [facility] PFIZER COVID-19 MRNA 2020-09-25 Completed Meth odist VACCINATION 00:00:00 [facility] PFIZER COVID-19 MRNA 2020-09-25 Completed Meth odist VACCINATION 00:00:00 [facility] PFIZER COVID-19 MRNA 2020-09-25 Completed Meth odist VACCINATION 00:00:00 [facility] PFIZER COVID-19 MRNA 2020-09-25 Completed Meth odist VACCINATION 00:00:00 [facility] PFIZER COVID-19 MRNA 2020-09-25 Completed Meth odist VACCINATION 00:00:00 [facility] PFIZER COVID-19 MRNA 2020-09-25 Completed Meth odist VACCINATION 00:00:00 [facility] PFIZER COVID-19 MRNA 2020-09-25 Completed Meth odist VACCINATION 00:00:00 [facility] PFIZER COVID-19 MRNA 2020-09-25 Completed Meth odist VACCINATION 00:00:00 [facility] PFIZER COVID-19 MRNA 2020-09-25 Completed Meth odist VACCINATION 00:00:00 [facility] PFIZER COVID-19 MRNA 2020-09-25 Completed Meth odist VACCINATION 00:00:00 [facility] PFIZER COVID-19 MRNA 2020-09-25 Completed Meth odist VACCINATION 00:00:00 [facility] PFIZER COVID-19 MRNA 2020-09-25 Completed Meth odist VACCINATION 00:00:00 [facility] PFIZER COVID-19 MRNA 2020-09-25 Completed Meth odist VACCINATION 00:00:00 [facility] PFIZER COVID-19 MRNA 2020-09-25 Completed Meth odist VACCINATION 00:00:00 [facility] PFIZER COVID-19 MRNA 2020-09-25 Completed Meth odist VACCINATION 00:00:00 [facility] PFIZER COVID-19 MRNA 2020-09-25 Completed Meth odist VACCINATION 00:00:00 [facility] PFIZER COVID-19 MRNA 2020-09-25 Completed Meth odist VACCINATION 00:00:00 [facility] PFIZER COVID-19 MRNA 2020-09-25 Completed Meth odist VACCINATION 00:00:00 [facility] PFIZER COVID-19 MRNA 2020-09-25 Completed Meth odist VACCINATION 00:00:00 [facility] PFIZER COVID-19 MRNA 2020-09-25 Completed Meth odist VACCINATION 00:00:00 [facility] PFIZER COVID-19 MRNA 2020-09-25 Completed Meth odist VACCINATION 00:00:00 [facility] PFIZER COVID-19 MRNA 2020-09-25 Completed Meth odist VACCINATION 00:00:00 [facility] PFIZER COVID-19 MRNA 2020-09-25 Completed Meth odist VACCINATION 00:00:00 [facility] PFIZER COVID-19 MRNA 2020-09-25 Completed Meth odist VACCINATION 00:00:00 [facility] PFIZER COVID-19 MRNA 2020-09-25 Completed Meth odist VACCINATION 00:00:00 [facility] PFIZER COVID-19 MRNA 2020-09-25 Completed Meth odist VACCINATION 00:00:00 [facility] PFIZER COVID-19 MRNA 2020-09-25 Completed Meth odist VACCINATION 00:00:00 [facility] PFIZER COVID-19 MRNA 2020-09-25 Completed [facility] odist VACCINATION 00:00:00 [facility] COVID-19, mRNA, COVID-19, mRNA, 2020-09-25 Completed Cornelius laila LNP-S, PF, 30 LNP-S, PF, 30 00:00:00 Medical Group mcg/0.3 mL dose mcg/0.3 mL dose ([employer]) - ([employer]) - ML ML influenza, influenza, 2018-05-11 Completed [facility] injectable, injectable, 00:00:00 Medical Grou p quadrivalent, quadrivalent, preservative free - preservative free - ML ML influenza, seasonal, influenza, 2017-06-27 Completed Cornelius laila injectable, seasonal, 00:00:00 Medical Group preservative free - injectable, ML preservative free - ML DTaP, unspecified DTaP, unspecified 1998-10-20 Completed [facility] formulation - ML formulation - ML 00:00:00 Tn dical Group Hib (PRP-T) - ML Hib (PRP-T) - ML 1998-10-20 Completed [facility] 00:00:00 [facility] Group varicella - ML varicella - ML 1998-07-10 Completed [facility] telephone ad taker 00:00:00 Medical Group MMR - ML MMR - ML 1998-07-10 Completed [facility] 00:00:00 [facility] DTaP, unspecified DTaP, unspecified 1997 Completed [facility] formulation - ML formulation - ML 00:00:00 Tn dical Group Hep B, adolescent or Hep B, adolescent 1997 Completed [facility] pediatric - ML or pediatric - ML 00:00:00 Med ical Group OPV - ML OPV - ML 1997 Completed [facility] 00:00:00 [facility] Hib, unspecified Hib, unspecified 1997 Completed [place] formulation - ML formulation - ML 00:00:00 Me dical Group DTaP, unspecified DTaP, unspecified 1997 Completed [facility] formulation - ML formulation - ML 00:00:00 Me dical Group OPV - ML OPV - ML 1997 Completed [facility] 00:00:00 [facility] Hib, unspecified Hib, unspecified 1997 Completed [place] formulation - ML formulation - ML 00:00:00 Me dical Group DTaP, unspecified DTaP, unspecified 1997 Completed [facility] formulation - ML formulation - ML 00:00:00 Me dical Group OPV - ML OPV - ML 1997 Completed [facility] 00:00:00 [facility] Hib, unspecified Hib, unspecified 1997 Completed [place] formulation - ML formulation - ML 00:00:00 Me dical Group Hep B, adolescent or Hep B, adolescent 1997 Completed [facility] pediatric - ML or pediatric - ML 00:00:00 Med ical Group Hep B, adolescent or Hep B, adolescent 1997 Completed [facility] pediatric - ML or pediatric - ML 00:00:00 Med ical Group Vital Signs Vital Name Observation Time Observation Value Comments Source BP Diastolic 2022-11-25 00:00:00 82 mm[facility]Hg[facility] Height 2022-11-25 00:00:00 71 [in_i] [facility] BMI (Body Mass 2022-11-25 00:00:00 31.7 kg/m2 [facility]) Group BP Systolic 2022-11-25 00:00:00 128 mm[Hg] [facility] Body Weight 2022-11-25 00:00:00 3632 [oz_av] [facility] BP Diastolic 2022-11-17 00:00:00 68 mm[Hg] [facility] Height 2022-11-17 00:00:00 71 [in_i] [facility] BMI (Body Mass 2022-11-17 00:00:00 32 kg/m2 [facility] Index) Group BP Systolic 2022-11-17 00:00:00 105 mm[Hg] [facility] Body Weight 2022-11-17 00:00:00 3673 [oz_av] [facility] BP Diastolic 2022-06-25 00:00:00 84 mm[Hg] [facility] Height 2022-06-25 00:00:00 71 [in_i] [facility] BMI (Body Mass 2022-06-25 00:00:00 33.5 kg/m2 [facility] Index) Group BP Systolic 2022-06-25 00:00:00 133 mm[Hg] [facility] Body Weight 2022-06-25 00:00:00 3848 [oz_av] [facility] BP Diastolic 2022-06-21 00:00:00 73 mm[Hg] [facility] Height 2022-06-21 00:00:00 71 [in_i] [facility] BMI (Body Mass 2022-06-21 00:00:00 34.4 kg/m2 [facility] Index) Group BP Systolic 2022-06-21 00:00:00 112 mm[Hg] [facility] Body Weight 2022-06-21 00:00:00 3942 [oz_av] [facility] height 2022-05-19 10:30:00 71 [in_i] [facility] weight 2022-05-19 10:30:00 254.6 [lb_av] [facility] temperature 2022-05-19 10:30:00 97.6 [degF] [facility] bmi 2022-05-19 10:30:00 35.51 kg/m2 [facility] oximetry 2022-05-19 10:30:00 98 % [facility] respiratory rate 2022-05-19 10:30:00 18 /min [facility] blood pressure 2022-05-19 10:30:00 35 mm[Hg] [facility] systolic [facility] blood pressure 2022-05-19 10:30:00 78 mm[Hg] [facility] - diastolic [facility] BP Diastolic 2022-03-09 00:00:00 77 mm[Hg] [facility] Height 2022-03-09 00:00:00 71 [in_i] [facility] BMI (Body Mass 2022-03-09 00:00:00 35.6 kg/m2 [facility] telephone ad taker Medical Index) Group BP Systolic 2022-03-09 00:00:00 122 mm[Hg] [facility] Body Weight 2022-03-09 00:00:00 4078.4 [oz_av] [facility] t[facility] Group BP Diastolic 2021-11-06 00:00:00 83 mm[Hg] [facility] Height 2021-11-06 00:00:00 71 [in_i] [facility] BMI (Body Mass 2021-11-06 00:00:00 35 kg/m2 [facility] telephone ad taker Medical Index) Group BP Systolic 2021-11-06 00:00:00 127 mm[Hg] [facility] Body Weight 2021-11-06 00:00:00 4020 [oz_av] [facility] Height 2021-09-14 00:00:00 71 [in_i] [facility] BMI (Body Mass 2021-09-14 00:00:00 34.6 kg/m2 [facility] [facility] Body Weight 2021-09-14 00:00:00 3968 [oz_av] [facility] BP Diastolic 2021-03-26 00:00:00 75 mm[Hg] [facility] Height 2021-03-26 00:00:00 71 [in_i] [facility] BMI (Body Mass 2021-03-26 00:00:00 31.1 kg/m2 [facility] BP Systolic 2021-03-26 00:00:00 118 mm[Hg] [facility] Body Weight 2021-03-26 00:00:00 3569 [oz_av] [facility] BP Diastolic 2021-03-10 00:00:00 69 mm[Hg] [facility] Height 2021-03-10 00:00:00 71 [in_i] [facility] BMI (Body Mass 2021-03-10 00:00:00 30.8 kg/m2 [facility] BP Systolic 2021-03-10 00:00:00 111 mm[Hg] [facility] Body Weight 2021-03-10 00:00:00 3529 [oz_av] [facility] BP Diastolic 2021-01-02 00:00:00 63 mm[Hg] [facility] Height 2021-01-02 00:00:00 71 [in_i] [facility] BMI (Body Mass 2021-01-02 00:00:00 30.3 kg/m2 [facility] BP Systolic 2021-01-02 00:00:00 112 mm[Hg] [facility] Body Weight 2021-01-02 00:00:00 3481 [oz_av] [facility] BP Diastolic 2020-07-15 00:00:00 71 mm[Hg] [facility] Height 2020-07-15 00:00:00 71 [in_i] [facility] BMI (Body Mass 2020-07-15 00:00:00 29.7 kg/m2 [facility] BP Systolic 2020-07-15 00:00:00 117 mm[Hg] [facility] Body Weight 2020-07-15 00:00:00 213 [lb_av] [facility] BP Diastolic 2020-07-14 00:00:00 71 mm[Hg] [facility] Height 2020-07-14 00:00:00 71 [in_i] [facility] BMI (Body Mass 2020-07-14 00:00:00 29.7 kg/m2 [facility] BP Systolic 2020-07-14 00:00:00 117 [facility]Hg[facility] Body Weight 2020-07-14 00:00:00 3411 [oz_av] [facility] Height 2020-01-30 00:00:00 71 [in_i] [facility] BMI (Body Mass 2020-01-30 00:00:00 30 kg/m2 [facility] Body Weight 2020-01-30 00:00:00 3440 [oz_av] [facility] Systolic blood 2022-03-02 15:38:00 114 mm[Hg] [facility] pressure Diastolic blood 2022-03-02 15:38:00 67 mm[Hg] [facility] pressure Heart rate 2022-03-02 15:38:00 63 /min [facility] Respiratory rate 2022-03-02 15:38:00 16 /min [facility] Oxygen saturation in 2022-03-02 15:38:00 97 /min [facility] Arterial blood by Pulse oximetry Body temperature 2022-03-02 15:30:00 36.33 Elle [facility] Body height 2022-03-01 15:26:00 180.3 cm [facility] Body weight 2022-03-01 15:26:00 115.123 kg [facility] BMI 2022-03-01 15:26:00 35.40 kg/m2 [facility] Procedures Procedure Date / Time Performing Clinician Source Performed US, scrotum 2022-11-17 00:00:00 [facility] US, duplex, penis, 2022-03-09 00:00:00 [facility] [place] < 1 HOUR 2022-03-02 18:31:17 [facility] Rom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 2022-03-02 13:31:57 Alfreda Duvall [facility] SPINAE ID AN ELECTIVE 2022-03-02 12:35:00 Mason Douglas [facility] ENDOTRACHEAL AIRWAY LAMINECTOMY, LUMBAR 2022-03-02 12:29[facility] 2022-03-02 11:43:00 [facility] Back Surgery 2022-03-02 00:00[facility]00 [facility] XR CHEST 2 VW 2022-03-01 17:28:02 [facility] ECG PRE/POST OP 2022-03-01 16:38:21 [facility] HEMOGLOBIN A1C 2022-03-01 16:18[facility]-19 QUALITATIVE 2022-03-01 15:48:00 [facility] RT-PCR CBC WITH PLATELET AND 2022-03-01 15:48:00 Maynor Romero [facility] DIFFERENTIAL PARTIAL THROMBOPLASTIN 2022-03-01 15:48:00 Maynor Romero [facility] TIME (PTT) PROTHROMBIN TIME WITH INR 2022-03-01 15:48:00 Maynor Romero [facility] CT POST MYELOGRAM LUMBAR 2022-02-25 18:14:57 [facility] LUMB INCL 2022-02-25 17:55:00 [facility] INJ W S&I COVID-19 QUALITATIVE 2022-02-24 22:40:00 [facility] RT-PCR COMPREHENSIVE METABOLIC 2022-02-24 22:40:00 [facility] PANEL CBC WITH PLATELET AND 2022-02-24 22:40:00 [facility] DIFFERENTIAL TROPONIN T 2022-02-24 22:40:00 [facility] B NATRIURETIC PEPTIDE 2022-02-24 22:40:00 [facility] ESTIMATED GFR 2022-02-24 22:40:00 [facility] GENERAL 2022-02-24 22:27:14 [facility] CT SPINE EXTERNAL STUDY 2022-02-12 16:40:33 Maynor Romero [facility] XR ABDOMEN 2 VW AP W 2021-12-18 16:48:[address] [facility] UPRIGHT AND/OR DECUBITUS XR LUMBAR SPINE COMPLETE 2021-12-18 15:33:23 Maynor Romero [facility] W BENDING XR SPINE EXTERNAL STUDY 2021-08-10 17:26:30 Maynor Romero [facility] XR, lumbar spine 2021-03-10 00:00:00 Myla Vallejo Plan of Care Planned Activity Planned Date Details Comments Source Future Scheduled Test 2022-12-27 Pneumococcal Vaccine: [facility] 14:16:08 Pediatrics (0 to 5 Years) and At-Risk Patients (6 to 64 Years) (1 - PCV) [code = Pneumococcal Vaccine: Pediatrics (0 to 5 Years) and At-Risk Patients (6 to 64 Years) (1 - PCV)] Future Scheduled Test 2022-12-27 Hepatitis C screening [facility] 14:16:08 (procedure) [code = [id number]] Future Scheduled Test 2022-12-27 COVID-19 VACCINE (3 - [facility] 14:16:08 Pfizer series) [code = COVID-19 VACCINE (3 - Pfizer series)] Future Scheduled Test 2022-12-27 INFLUENZA VACCINE [facility] 14:16:08 [code = INFLUENZA VACCINE] Diagnostic Test 2022-11-17 CMP, serum or plasma [facility]ending 00:00:00 [code = CMP, serum or Group plasma] Diagnostic Test 2022-11-17 CBC w/ auto diff [facility] 00:00:00 [code = CBC w/ auto Group diff] Diagnostic Test 2022-11-17 TSH + free T4, serum [facility]ending 00:00:00 [code = TSH + free Group T4, serum] Diagnostic Test 2022-11-17 T3, total, serum [facility] Pending 00:00:00 [code = T3, total, Group serum] Diagnostic Test 2022-11-17 HbA1c (hemoglobin [facility] 00:00:00 A1c), blood [code = Group HbA1c (hemoglobin A1c), blood] Diagnostic Test 2022-11-17 lipid panel, serum [facility] 00:00:00 [code = lipid panel, Group serum] Future Scheduled Test 2022-10-26 Pneumococcal Vaccine: [facility] 12:10:59 Pediatrics (0 to 5 Years) and At-Risk Patients (6 to 64 Years) (1 - PCV) [code = Pneumococcal Vaccine: Pediatrics (0 to 5 Years) and At-Risk Patients (6 to 64 Years) (1 - PCV)] Future Scheduled Test 2022-10-26 Hepatitis C screening [facility] 12:10:59 (procedure) [code = [id number]] Future Scheduled Test 2022-10-26 COVID-19 VACCINE ([address] [place] [address] 12:10:59 Booster for Pfizer series) [code = COVID-19 VACCINE (3 - Booster for Pfizer series)] Future Scheduled Test 2022-10-26 INFLUENZA VACCINE [facility] 12:10:59 [code = INFLUENZA VACCINE] Future Scheduled Test 2022-10-26 Pneumococcal Vaccine: [facility] 12:10:59 Pediatrics (0 to 5 Years) and At-Risk Patients (6 to 64 Years) (1 - PCV) [code = Pneumococcal Vaccine: Pediatrics (0 to 5 Years) and At-Risk Patients (6 to 64 Years) (1 - PCV)] Future Scheduled Test 2022-10-26 Hepatitis C screening [facility] 12:10:59 (procedure) [code = [id number]] Future Scheduled Test 2022-10-26 COVID-19 VACCINE ([address] [place] [address] 12:10:59 Booster for Pfizer series) [code = COVID-19 VACCINE (3 - Booster for Pfizer series)] Future Scheduled Test 2022-10-26 INFLUENZA VACCINE [facility] 12:10:59 [code = INFLUENZA VACCINE] Future Scheduled Test 2022-10-26 Pneumococcal Vaccine: [facility] 12:10:59 Pediatrics (0 to 5 Years) and At-Risk Patients (6 to 64 Years) (1 - PCV) [code = Pneumococcal Vaccine: Pediatrics (0 to 5 Years) and At-Risk Patients (6 to 64 Years) (1 - PCV)] Future Scheduled Test 2022-10-26 Hepatitis C screening [facility] 12:10:59 (procedure) [code = [id number]] Future Scheduled Test 2022-10-26 COVID-19 VACCINE ([address] [place] [address] 12:10:59 Booster for Pfizer series) [code = COVID-19 VACCINE (3 - Booster for Pfizer series)] Future Scheduled Test 2022-10-26 INFLUENZA VACCINE [facility] 12:10:59 [code = INFLUENZA VACCINE] Future Scheduled Test 2022-10-26 Pneumococcal Vaccine: [facility] 12:10:59 Pediatrics (0 to 5 Years) and At-Risk Patients (6 to 64 Years) (1 - PCV) [code = Pneumococcal Vaccine: Pediatrics (0 to 5 Years) and At-Risk Patients (6 to 64 Years) (1 - PCV)] Future Scheduled Test 2022-10-26 Hepatitis C screening [facility] 12:10:59 (procedure) [code = [id number]] Future Scheduled Test 2022-10-26 COVID-19 VACCINE ([address] [place] [address] 12:10:59 Booster for Pfizer series) [code = COVID-19 VACCINE (3 - Booster for Pfizer series)] Future Scheduled Test 2022-10-26 INFLUENZA VACCINE [facility] 12:10:59 [code = INFLUENZA VACCINE] Future Scheduled Test 2022-10-12 Pneumococcal Vaccine: [facility] 03:52:45 Pediatrics (0 to 5 Years) and At-Risk Patients (6 to 64 Years) (1 - PCV) [code = Pneumococcal Vaccine: Pediatrics (0 to 5 Years) and At-Risk Patients (6 to 64 Years) (1 - PCV)] Future Scheduled Test 2022-10-12 Hepatitis C screening [facility] 03:52:45 (procedure) [code = [id number]] Future Scheduled Test 2022-10-12 COVID-19 VACCINE ([address] [place] [address] 03:52:45 Booster for Pfizer series) [code = COVID-19 VACCINE (3 - Booster for Pfizer series)] Future Scheduled Test 2022-10-12 INFLUENZA VACCINE [facility] 03:52:45 [code = INFLUENZA VACCINE] Future Scheduled Test 2022-10-12 Pneumococcal Vaccine: [facility] 03:52:45 Pediatrics (0 to 5 Years) and At-Risk Patients (6 to 64 Years) (1 - PCV) [code = Pneumococcal Vaccine: Pediatrics (0 to 5 Years) and At-Risk Patients (6 to 64 Years) (1 - PCV)] Future Scheduled Test 2022-10-12 Hepatitis C screening [facility] 03:52:45 (procedure) [code = [id number]] Future Scheduled Test 2022-10-12 COVID-19 VACCINE ([address] [place] [address] 03:52:45 Booster for Pfizer series) [code = COVID-19 VACCINE (3 - Booster for Pfizer series)] Future Scheduled Test 2022-10-12 INFLUENZA VACCINE [facility] 03:52:45 [code = INFLUENZA VACCINE] Future Scheduled Test 2022-10-12 Pneumococcal Vaccine: [facility] 03:52:45 Pediatrics (0 to 5 Years) and At-Risk Patients (6 to 64 Years) (1 - PCV) [code = Pneumococcal Vaccine: Pediatrics (0 to 5 Years) and At-Risk Patients (6 to 64 Years) (1 - PCV)] Future Scheduled Test 2022-10-12 Hepatitis C screening [facility] 03:52:45 (procedure) [code = [id number]] Future Scheduled Test 2022-10-12 COVID-19 VACCINE ([address] [place] [address] 03:52:45 Booster for Pfizer series) [code = COVID-19 VACCINE (3 - Booster for Pfizer series)] Future Scheduled Test 2022-10-12 INFLUENZA VACCINE [facility] 03:52:45 [code = INFLUENZA VACCINE] Future Scheduled Test 2022-09-07 Pneumococcal Vaccine: [facility] 19:21:49 Pediatrics (0 to 5 Years) and At-Risk Patients (6 to 64 Years) (1 - PCV) [code = Pneumococcal Vaccine: Pediatrics (0 to 5 Years) and At-Risk Patients (6 to 64 Years) (1 - PCV)] Future Scheduled Test 2022-09-07 Hepatitis C screening [facility] 19:21:49 (procedure) [code = [id number]] Future Scheduled Test 2022-09-07 COVID-19 VACCINE ([address] [place] [address] 19:21:49 Booster for Pfizer series) [code = COVID-19 VACCINE (3 - Booster for Pfizer series)] Future Scheduled Test 2022-09-07 INFLUENZA VACCINE [facility] 19:21:49 [code = INFLUENZA VACCINE] Future Scheduled Test 2022-09-07 Pneumococcal Vaccine: [facility] 19:21:49 Pediatrics (0 to 5 Years) and At-Risk Patients (6 to 64 Years) (1 - PCV) [code = Pneumococcal Vaccine: Pediatrics (0 to 5 Years) and At-Risk Patients (6 to 64 Years) (1 - PCV)] Future Scheduled Test 2022-09-07 Hepatitis C screening [facility] 19:21:49 (procedure) [code = [id number]] Future Scheduled Test 2022-09-07 COVID-19 VACCINE ([address] [place] [address] 19:21:49 Booster for Pfizer series) [code = COVID-19 VACCINE (3 - Booster for Pfizer series)] Future Scheduled Test 2022-09-07 INFLUENZA VACCINE [facility] 19:21:49 [code = INFLUENZA VACCINE] Future Scheduled Test 2022-09-07 Pneumococcal Vaccine: [facility] 19:21:49 Pediatrics (0 to 5 Years) and At-Risk Patients (6 to 64 Years) (1 - PCV) [code = Pneumococcal Vaccine: Pediatrics (0 to 5 Years) and At-Risk Patients (6 to 64 Years) (1 - PCV)] Future Scheduled Test 2022-09-07 Hepatitis C screening [facility] 19:21:49 (procedure) [code = [id number]] Future Scheduled Test 2022-09-07 COVID-19 VACCINE ([address] [place] [address] 19:21:49 Booster for Pfizer series) [code = COVID-19 VACCINE (3 - Booster for Pfizer series)] Future Scheduled Test 2022-09-07 INFLUENZA VACCINE [facility] 19:21:49 [code = INFLUENZA VACCINE] Future Scheduled Test 2022-09-07 Pneumococcal Vaccine: [facility] 19:21:49 Pediatrics (0 to 5 Years) and At-Risk Patients (6 to 64 Years) (1 - PCV) [code = Pneumococcal Vaccine: Pediatrics (0 to 5 Years) and At-Risk Patients (6 to 64 Years) (1 - PCV)] Future Scheduled Test 2022-09-07 Hepatitis C screening [facility] 19:21:49 (procedure) [code = [id number]] Future Scheduled Test 2022-09-07 COVID-19 VACCINE ([address] [place] [address] 19:21:49 Booster for Pfizer series) [code = COVID-19 VACCINE (3 - Booster for Pfizer series)] Future Scheduled Test 2022-09-07 INFLUENZA VACCINE [facility] 19:21:49 [code = INFLUENZA VACCINE] Future Scheduled Test 2022-06-26 Pneumococcal Vaccine: [facility] 18:09:46 Pediatrics (0 to 5 Years) and At-Risk Patients (6 to 64 Years) (1 - PCV) [code = Pneumococcal Vaccine: Pediatrics (0 to 5 Years) and At-Risk Patients (6 to 64 Years) (1 - PCV)] Future Scheduled Test 2022-06-26 Hepatitis C screening [facility] 18:09:46 (procedure) [code = [id number]] Future Scheduled Test 2022-06-26 COVID-19 VACCINE ([address] [place] [address] 18:09:46 Booster for Pfizer series) [code = COVID-19 VACCINE (3 - Booster for Pfizer series)] Future Scheduled Test 2022-06-26 INFLUENZA VACCINE [facility] 18:09:46 [code = INFLUENZA VACCINE] Future Scheduled Test 2022-06-26 Pneumococcal Vaccine: [facility] 18:09:46 Pediatrics (0 to 5 Years) and At-Risk Patients (6 to 64 Years) (1 - PCV) [code = Pneumococcal Vaccine: Pediatrics (0 to 5 Years) and At-Risk Patients (6 to 64 Years) (1 - PCV)] Future Scheduled Test 2022-06-26 Hepatitis C screening [facility] 18:09:46 (procedure) [code = [id number]] Future Scheduled Test 2022-06-26 COVID-19 VACCINE ([address] [place] [address] 18:09:46 Booster for Pfizer series) [code = COVID-19 VACCINE (3 - Booster for Pfizer series)] Future Scheduled Test 2022-06-26 INFLUENZA VACCINE [facility] 18:09:46 [code = INFLUENZA VACCINE] Future Scheduled Test 2022-05-20 Pneumococcal Vaccine: [facility] 09:23:23 Pediatrics (0 to 5 Years) and At-Risk Patients (6 to 64 Years) (1 - PCV) [code = Pneumococcal Vaccine: Pediatrics (0 to 5 Years) and At-Risk Patients (6 to 64 Years) (1 - PCV)] Future Scheduled Test 2022-05-20 Hepatitis C screening [facility] 09:23:23 (procedure) [code = [id number]] Future Scheduled Test 2022-05-20 COVID-19 VACCINE ([address] [place] [address] 09:23:23 Booster for Pfizer series) [code = COVID-19 VACCINE (3 - Booster for Pfizer series)] Future Scheduled Test 2022-05-20 INFLUENZA VACCINE [facility] 09:23:23 [code = INFLUENZA VACCINE] Future Scheduled Test 2022-05-20 Pneumococcal Vaccine: [facility] 09:23:23 Pediatrics (0 to 5 Years) and At-Risk Patients (6 to 64 Years) (1 - PCV) [code = Pneumococcal Vaccine: Pediatrics (0 to 5 Years) and At-Risk Patients (6 to 64 Years) (1 - PCV)] Future Scheduled Test 2022-05-20 Hepatitis C screening [facility] 09:23:23 (procedure) [code = [id number]] Future Scheduled Test 2022-05-20 COVID-19 VACCINE ([address] [place] [address] 09:23:23 Booster for Pfizer series) [code = COVID-19 VACCINE (3 - Booster for Pfizer series)] Future Scheduled Test 2022-05-20 INFLUENZA VACCINE [facility] 09:23:23 [code = INFLUENZA VACCINE] Future Scheduled Test 2022-05-20 Pneumococcal Vaccine: [facility] 09:23:23 Pediatrics (0 to 5 Years) and At-Risk Patients (6 to 64 Years) (1 - PCV) [code = Pneumococcal Vaccine: Pediatrics (0 to 5 Years) and At-Risk Patients (6 to 64 Years) (1 - PCV)] Future Scheduled Test 2022-05-20 Hepatitis C screening [facility] 09:23:23 (procedure) [code = [id number]] Future Scheduled Test 2022-05-20 COVID-19 VACCINE ([address] [place] [address] 09:23:23 Booster for Pfizer series) [code = COVID-19 VACCINE (3 - Booster for Pfizer series)] Future Scheduled Test 2022-05-20 INFLUENZA VACCINE [facility] 09:23:23 [code = INFLUENZA VACCINE] Future Scheduled Test 2022-05-20 Pneumococcal Vaccine: [facility] 09:23:23 Pediatrics (0 to 5 Years) and At-Risk Patients (6 to 64 Years) (1 - PCV) [code = Pneumococcal Vaccine: Pediatrics (0 to 5 Years) and At-Risk Patients (6 to 64 Years) (1 - PCV)] Future Scheduled Test 2022-05-20 Hepatitis C screening [facility] 09:23:23 (procedure) [code = [id number]] Future Scheduled Test 2022-05-20 COVID-19 VACCINE ([address] [place] [address] 09:23:23 Booster for Pfizer series) [code = COVID-19 VACCINE (3 - Booster for Pfizer series)] Future Scheduled Test 2022-05-20 INFLUENZA VACCINE [facility] 09:23:23 [code = INFLUENZA VACCINE] Future Scheduled Test 2022-05-20 Pneumococcal Vaccine: [facility] 09:23:23 Pediatrics (0 to 5 Years) and At-Risk Patients (6 to 64 Years) (1 - PCV) [code = Pneumococcal Vaccine: Pediatrics (0 to 5 Years) and At-Risk Patients (6 to 64 Years) (1 - PCV)] Future Scheduled Test 2022-05-20 Hepatitis C screening [facility] 09:23:23 (procedure) [code = [id number]] Future Scheduled Test 2022-05-20 COVID-19 VACCINE ([address] [place] [address] 09:23:23 Booster for Pfizer series) [code = COVID-19 VACCINE (3 - Booster for Pfizer series)] Future Scheduled Test 2022-05-20 INFLUENZA VACCINE [facility] 09:23:23 [code = INFLUENZA VACCINE] Future Scheduled Test 2022-05-20 Pneumococcal Vaccine: [facility] 09:23:23 Pediatrics (0 to 5 Years) and At-Risk Patients (6 to 64 Years) (1 - PCV) [code = Pneumococcal Vaccine: Pediatrics (0 to 5 Years) and At-Risk Patients (6 to 64 Years) (1 - PCV)] Future Scheduled Test 2022-05-20 Hepatitis C screening [facility] 09:23:23 (procedure) [code = [id number]] Future Scheduled Test 2022-05-20 COVID-19 VACCINE ([address] [place] [address] 09:23:23 Booster for Pfizer series) [code = COVID-19 VACCINE (3 - Booster for Pfizer series)] Future Scheduled Test 2022-05-20 INFLUENZA VACCINE [facility] 09:23:23 [code = INFLUENZA VACCINE] Future Scheduled Test 2022-05-11 Pneumococcal Vaccine: [facility] 07:01:06 Pediatrics (0 to 5 Years) and At-Risk Patients (6 to 64 Years) (1 - PCV) [code = Pneumococcal Vaccine: Pediatrics (0 to 5 Years) and At-Risk Patients (6 to 64 Years) (1 - PCV)] Future Scheduled Test 2022-05-11 Hepatitis C screening [facility] 07:01:06 (procedure) [code = [id number]] Future Scheduled Test 2022-05-11 COVID-19 VACCINE ([address] [place] [address] 07:01:06 Booster for Pfizer series) [code = COVID-19 VACCINE (3 - Booster for Pfizer series)] Future Scheduled Test 2022-05-11 INFLUENZA VACCINE [facility] 07:01:06 [code = INFLUENZA VACCINE] Future Scheduled Test 2022-05-11 Pneumococcal Vaccine: [facility] 07:01:06 Pediatrics (0 to 5 Years) and At-Risk Patients (6 to 64 Years) (1 - PCV) [code = Pneumococcal Vaccine: Pediatrics (0 to 5 Years) and At-Risk Patients (6 to 64 Years) (1 - PCV)] Future Scheduled Test 2022-05-11 Hepatitis C screening [facility] 07:01:06 (procedure) [code = [id number]] Future Scheduled Test 2022-05-11 COVID-19 VACCINE ([address] [place] [address] 07:01:06 Booster for Pfizer series) [code = COVID-19 VACCINE (3 - Booster for Pfizer series)] Future Scheduled Test 2022-05-11 INFLUENZA VACCINE [facility] 07:01:06 [code = INFLUENZA VACCINE] Future Scheduled Test 2022-04-23 Pneumococcal Vaccine: [facility] 15:05:55 Pediatrics (0 to 5 Years) and At-Risk Patients (6 to 64 Years) (1 - PCV) [code = Pneumococcal Vaccine: Pediatrics (0 to 5 Years) and At-Risk Patients (6 to 64 Years) (1 - PCV)] Future Scheduled Test 2022-04-23 Hepatitis C screening [facility] 15:05:55 (procedure) [code = [id number]] Future Scheduled Test 2022-04-23 COVID-19 VACCINE ([address] [place] [address] 15:05:55 Booster for Pfizer series) [code = COVID-19 VACCINE (3 - Booster for Pfizer series)] Future Scheduled Test 2022-04-23 INFLUENZA VACCINE [facility] 15:05:55 [code = INFLUENZA VACCINE] Future Scheduled Test 2022-03-19 Pneumococcal Vaccine: [facility] 14:05:17 Pediatrics (0 to 5 Years) and At-Risk Patients (6 to 64 Years) (1 - PCV) [code = Pneumococcal Vaccine: Pediatrics (0 to 5 Years) and At-Risk Patients (6 to 64 Years) (1 - PCV)] Future Scheduled Test 2022-03-19 Hepatitis C screening [facility] 14:05:17 (procedure) [code = [id number]] Future Scheduled Test 2022-03-19 COVID-19 VACCINE ([address] [place] [address] 14:05:17 Booster for Pfizer series) [code = COVID-19 VACCINE (3 - Booster for Pfizer series)] Future Scheduled Test 2022-03-19 INFLUENZA VACCINE [facility] 14:05:17 [code = INFLUENZA VACCINE] Future Scheduled Test 2022-03-19 Pneumococcal Vaccine: [facility] 14:05:17 Pediatrics (0 to 5 Years) and At-Risk Patients (6 to 64 Years) (1 - PCV) [code = Pneumococcal Vaccine: Pediatrics (0 to 5 Years) and At-Risk Patients (6 to 64 Years) (1 - PCV)] Future Scheduled Test 2022-03-19 Hepatitis C screening [facility] 14:05:17 (procedure) [code = 761940316] Future Scheduled Test 2022-03-19 COVID-19 VACCINE ([address] [place] [address] 14:05:17 Booster for Pfizer series) [code = COVID-19 VACCINE (3 - Booster for Pfizer series)] Future Scheduled Test 2022-03-19 INFLUENZA VACCINE [facility] 14:05:17 [code = INFLUENZA VACCINE] Future Scheduled Test 2022-03-06 Pneumococcal Vaccine: [facility] 19:05:17 Pediatrics (0 to 5 Years) and At-Risk Patients (6 to 64 Years) (1 - PCV) [code = Pneumococcal Vaccine: Pediatrics (0 to 5 Years) and At-Risk Patients (6 to 64 Years) (1 - PCV)] Future Scheduled Test 2022-03-06 Hepatitis C screening [facility] 19:05:17 (procedure) [code = 132363786] Future Scheduled Test 2022-03-06 COVID-19 VACCINE ([address] [place] [address] 19:05:17 Booster for Pfizer series) [code = COVID-19 VACCINE (3 - Booster for Pfizer series)] Future Scheduled Test 2022-03-06 INFLUENZA VACCINE [facility] 19:05:17 [code = INFLUENZA VACCINE] Future Scheduled Test 2022-03-06 Pneumococcal Vaccine: [facility] 19:05:17 Pediatrics (0 to 5 Years) and At-Risk Patients (6 to 64 Years) (1 - PCV) [code = Pneumococcal Vaccine: Pediatrics (0 to 5 Years) and At-Risk Patients (6 to 64 Years) (1 - PCV)] Future Scheduled Test 2022-03-06 Hepatitis C screening [facility] 19:05:17 (procedure) [code = 923560691] Future Scheduled Test 2022-03-06 COVID-19 VACCINE ([address] [place] [address] 19:05:17 Booster for Pfizer series) [code = COVID-19 VACCINE (3 - Booster for Pfizer series)] Future Scheduled Test 2022-03-06 INFLUENZA VACCINE [facility] 19:05:17 [code = INFLUENZA VACCINE] Future Scheduled Test 2022-03-06 Pneumococcal Vaccine: [facility] 19:05:17 Pediatrics (0 to 5 Years) and At-Risk Patients (6 to 64 Years) (1 - PCV) [code = Pneumococcal Vaccine: Pediatrics (0 to 5 Years) and At-Risk Patients (6 to 64 Years) (1 - PCV)] Future Scheduled Test 2022-03-06 Hepatitis C screening [facility] 19:05:17 (procedure) [code = 146396042] Future Scheduled Test 2022-03-06 COVID-19 VACCINE ([address] [place] [address] 19:05:17 Booster for Pfizer series) [code = COVID-19 VACCINE (3 - Booster for Pfizer series)] Future Scheduled Test 2022-03-06 INFLUENZA VACCINE [facility] 19:05:17 [code = INFLUENZA VACCINE] Future Scheduled Test 2022-03-06 Pneumococcal Vaccine: [facility] 19:05:17 Pediatrics (0 to 5 Years) and At-Risk Patients (6 to 64 Years) (1 - PCV) [code = Pneumococcal Vaccine: Pediatrics (0 to 5 Years) and At-Risk Patients (6 to 64 Years) (1 - PCV)] Future Scheduled Test 2022-03-06 Hepatitis C screening [facility] 19:05:17 (procedure) [code = [id number]] Future Scheduled Test 2022-03-06 COVID-19 VACCINE ([address] [place] [address] 19:05:17 Booster for Pfizer series) [code = COVID-19 VACCINE (3 - Booster for Pfizer series)] Future Scheduled Test 2022-03-06 INFLUENZA VACCINE [facility] 19:05:17 [code = INFLUENZA VACCINE] Instructions [facility] Encounters Start End Encounter Admission Attending Care Care Encounter Source Date/Time Date/Time Type Type Clinicians Facility Department ID 2022-08-26 Outpatient MAYDA Perry [facility] [id number] Common 10:40:02 Ronnell [id number] [facility] 2022-08-09 Inpatient TEXANA TEX[place] [id number] [place] 16:07:58 [id number] [place] 2022-06-18 Inpatient YASMEEN KHANNA, [facility] [id number] [place] 08:00:00 NAHUN -[id number] [facility] 2022-06-11 Inpatient YASMEEN KHANNA, [facility] [id number] [place] 08:00:00 [id number] [facility] 2022-06-08 Inpatient TEXANA TEXANA [id number] [place] 11:16:57 [id number] [place] 2022-05-31 Inpatient TEXANA TEXANA [id number] [place] 12:03:56 [id number] [place] 2022-05-19 Outpatient Orlando [facility] [id number] Common 09:43:04 Ronnell 82749 [facility] 2022-05-03 Inpatient YASMEEN ROMERO, [facility] [id number] [place] 09:00:00 MAYNOR -[id number] [facility] 2022-03-23 Inpatient TEXANA TEXANA [id number] [place] 11:21:45 [id number] [place] 2022-12-21 2023-01-07 Outpatient YASMEEN POND, [facility] [id number] [place] 15:14:00 00:01:00 RICH -[id number] [facility] 2022-12-03 2022-12-03 Inpatient YASMEEN POND, [facility] [id number] [place] 14:00:00 08:18:00 RICH -[id number] [facility] 2022-11-25 2022-11-25 Outpatient Gloria [facility] [id number] -2022 [place] 00:00:00 00:00:00 0518 [facility] 2022-11-25 2022-11-25 Susan SAVAGE [place] - [id number] M atagor 00:00:00 00:00:[address] [facility] DISPLAY ARTIST: [address] [facility] [address], [place] [address] , Ph. 2022-11-19 2022-11-19 Outpatient UR Perry, [facility] [id number] [place] 08:55:00 08:55:00 Ronnell -[id number] [facility] 2022-11-17 2022-11-17 Ronnell [facility] [place] - [id number] [place] 00:00:00 00:00:00 Aracelis Klein Medical MD: [address] [place] [address], Family [address], [place] [address] , Ph. 2022-10-19 2022-10-19 Emergency ER JOEL, [facility] [id number] [place] 03:22:00 05:40:00 BRENDA -[id number] [facility] 2022-09-07 2022-09-07 Telephone Duc, 1.2.840.1 [id number] 2099 [id number] Methodi 00:00:00 00:00:[address] 3.430.2.7 Hospit a .3.043219 l .8 2022-09-07 2022-09-07 Telephone Duc, 1.2.840.1 [id number] 2099 [id number] Methodi 00:00:00 00:00:[address] 3.430.2.7 Hospit a .3.334234 l .8 2022-07-26 2022-08-06 Maynor Pierson. 1.2.840.1 [id number] 01 [id number] Methodi 10:00:00 16:53:40 Visit [place] 99255.1.[address] 3.430.2.7 Hospit a .3.747830 l .8 2022-07-26 2022-08-06 Maynor Pierson 1.2.840.1 [id number] 01 [id number] Methodi 10:00:00 16:53:40 Visit [place] 43048.1.[address] 3.430.2.7 Hospit a .3.279264 l .8 2022-07-29 2022-07-29 Outpatient YASMEEN KHANNA, [facility] [id number] [place] 09:54:00 09:54:00 NAHUN -[id number] [facility] 2022-07-26 2022-07-26 Travel 1.2.840.1 1.2.154.433 2383 [id number] Methodi 00:00:00 00:00:[address] 3.430.2.7 0.2.7.3.698 Ho spita .3.063498 084.8 l .8 2022-07-26 2022-07-26 Travel 1.2.840.1 1.2.180.970 5183 333706 Methodi 00:00:00 00:00:[address] 3.430.2.7 0.2.7.3.698 Ho spita .3.860794 084.8 l .8 2022-06-14 2022-07-10 Outpatient YASMEEN ROMERO, [facility] [id number] [place] 07:00:00 00:01:00 MAYNOR -[id number] [facility] 2022-07-05 2022-07-05 Emergency ER Barron, [facility] [id number] [place] 23:45:00 23:58:00 Neymar -[id number] [facility] 2022-06-25 2022-06-25 Outpatient YASMEEN Perry, [facility] [id number] [place] 10:55:00 10:55:00 Ronnell -[id number] [facility] 2022-06-25 2022-06-25 Outpatient Zuniga_F [facility] [id number]- 2021 [place] 00:00:00 00:00:00 1216 [facility] 2022-06-25 2022-06-25 Outpatient Zuniga_F [facility] [id number]- 2022 [place] 00:00:00 00:00:00 0509 [facility] 2022-06-25 2022-06-25 Outpatient Zuniga_F [facility] [id number]- 2022 [place] 00:00:00 00:00:00 0510 [facility] 2022-06-25 2022-06-25 Outpatient Zuniga_F MMG [facility] [id number]- 2022 [place] 00:00:00 00:00:00 0513 [facility] 2022-06-25 2022-06-25 Radha [facility] [place] - [id number] [place] 00:00:00 00:00:00 Discovery perry Perry [employer]-C: [address] [address] , Ph. 2022-06-24 2022-06-24 Orders Javaheri, 1.2.840.1 [id number] 2099 [id number] Methodi 00:00:00 00:00:00 Only Rich 51674.1.[address] 3.430.2.7 Hospit a .3.097180 l .8 2022-06-24 2022-06-24 Orders Javaheri, 1.2.840.1 [id number] 2099 [id number] Methodi 00:00:00 00:00:00 Only Rich 50616.1.[address] 3.430.2.7 Hospit a .3.048544 l .8 2022-06-21 2022-06-21 Outpatient Zuniga_F [facility] [id number]- 2021 [place] 00:00:00 00:00:00 1212 [facility] 2022-06-21 2022-06-21 Ronnell [facility] [place] - [id number] [place] 00:00:00 00:00:00 Aracelis Klein MD: [address] [place] [address] , Ph. 2022-06-09 2022-06-16 Inpatient ER Orlando [facility] [id number] [place] 08:05:00 15:40:00 Ronnell -[id number] da [facility] 2022-06-02 2022-06-09 Outpatient YASMEEN ROMERO, [facility] [id number] [place] 11:00:00 00:01:00 MAYNOR -[id number] [facility] 2022-06-07 2022-06-07 Inpatient ER PERRY, [facility] [id number] [place] 17:16:00 14:35:00 RONNELL -[id number] [facility] 2022-06-05 2022-06-05 Emergency ER [facility], [facility] [id number] [place] 15:31:00 15:45:00 JASON -[id number] [facility] 2022-05-26 2022-05-26 Outpatient YASMEEN ROMERO, [facility] [id number] [place] 11:00:00 11:00:00 MAYNOR -[id number] [facility] 2022-05-24 2022-05-24 Outpatient YASMEEN ROMERO, [facility] [id number] [place] 11:00:00 11:00:00 MAYNOR -[id number] [facility] 2022-05-21 2022-05-21 Outpatient YASMEEN ROMERO, [facility] [id number] [place] 11:00:00 11:00:00 MAYNOR -[id number] [facility] 2022-05-20 2022-05-20 Outpatient YASMEEN KHANNA, [facility] [id number] [place] 08:01:00 08:01:00 NAHUN -[id number] [facility] 2022-05-19 2022-05-19 Orders Mariferi, 1.2.840.1 [id number] 2099 [id number] Methodi 00:00:00 00:00:00 Only Rich 76850.1.[address] 3.430.2.7 Hospit a .3.149486 l .8 2022-05-19 2022-05-19 Orders Mariferi, 1.2.840.1 [id number] 2100 [id number] Methodi 00:00:00 00:00:00 Only Rich 41208.1.[address] 3.430.2.7 Hospit a .3.610632 l .8 2022-05-19 2022-05-19 [facility] [id number] Co mmon 00:00:00 00:00:00 VISIT NEW [facility] it PT LEVEL 3 - [facility] 2022-05-18 2022-05-18 Emergency ER JOEL, [facility] D000 [id number] [place] 19:04:00 21:55:00 BRENDA -[id number] [facility] 2022-04-30 2022-04-30 Emergency ER GUME, [facility] [id number] [place] 14:49:00 15:34:00 JASON -[id number] [facility] 2022-04-25 2022-04-25 Emergency ER Beatrice, [facility] [id number] [place] 14:10:00 14:43:00 Neymar -[id number] [facility] 2022-04-21 2022-04-21 Emergency ER JACLYN, [facility] [id number] [place] 08:47:00 10:02:00 SHI -[id number] [facility] 2022-04-19 2022-04-19 Office Nick, 1.2.840.1 [id number] 215839 3662 Methodi 10:20:00 11:30:20 Visit Maynor LynchJuan José 13882.1.1 837 s t 3.430.2.7 Hospit a .3.971366 l .8 2022-04-19 2022-04-19 Office Nick, 1.2.840.1 [id number] 1516 Methodi 10:20:00 11:30:20 Visit Maynor LynchJuan José 17974.1.1 837 s t 3.430.2.7 Hospit a .3.323181 l .8 2022-04-19 2022-04-19 Travel 1.2.840.1 1.2.057.025 9907 562906 Methodi 00:00:00 00:00:[address] 3.430.2.7 0.2.7.3.698 Ho spita .3.584609 084.8 l .8 2022-04-19 2022-04-19 Travel 1.2.840.1 1.2.530.851 2943 915683 Methodi 00:00:00 00:00:[address] 3.430.2.7 0.2.7.3.698 Ho spita .3.629295 084.8 l .8 2022-04-16 2022-04-16 Emergency ER Barron, [facility] [id number] [place] 08:42:00 11:50:00 Neymar -[id number] [facility] 2022-04-14 2022-04-14 Emergency ER JACLYN, [facility] [id number] [place] 07:08:00 08:22:00 SHI -[id number] [facility] 2022-04-05 2022-04-05 Emergency ER Melissa, [facility] [id number] [place] 12:23:00 14:08:00 Alexa -[id number] [facility] 2022-04-01 2022-04-01 Outpatient Zunrio_F [facility] 62086- 2021 [place] 00:00:00 00:00:00 22 Medical [facility] 2022-04-01 2022-04-01 Orders Mariferi, 1.2.840.1 [id number] 2099 [id number] Methodi 00:00:00 00:00:00 Only Rich 93486.1.[address] 3.430.2.7 Hospit a .3.798183 l .8 2022-04-01 2022-04-01 Orders Jasteveheri, 1.2.840.1 [id number] 2099 [id number] Methodi 00:00:00 00:00:00 Only Rich 27226.1.[address] 3.430.2.7 Hospit a .3.652124 l .8 2022-03-31 2022-03-31 Emergency ER ANAYA, [facility] [id number] [place] 13:34:00 16:08:00 SHI -[id number] [facility] 2022-03-21 2022-03-21 Emergency ER GUME, [facility] [id number] [place] 09:47:00 14:33:00 JASON -[id number] [facility] 2022-03-19 2022-03-19 Office Dejah, 1.2.840.1 [id number] Methodi 14:20:00 14:33:59 Visit [facility] [address]4340.1.[address] 3.430.2.7 Hospit a .3.562772 l .8 2022-03-19 2022-03-19 Office Marifer, 1.2.840.1 [id number] Methodi 14:20:00 14:33:59 Visit [facility] [address]134.1.[address] 3.430.2.7 Hospit a .3.444293 l .8 2022-03-19 2022-03-19 Travel 1.2.840.1 1.2.564.109 4293 045956 Methodi 00:00:00 00:00:[address] 3.430.2.7 0.2.7.3.698 Ho spita .3.145736 084.8 l .8 2022-03-19 2022-03-19 Travel 1.2.840.1 1.2.751.821 9005 823913 Methodi 00:00:00 00:00:[address] 3.430.2.7 0.2.7.3.698 Ho spita .3.663148 084.8 l .8 2022-03-11 2022-03-11 Emergency ER RAAD, [facility] [id number] [place] 09:45:00 13:28:00 JULIUS -[id number] [facility] 2022-03-09 2022-03-09 Outpatient Gloria DOBSON [facility] [id number] [place] 00:00:00 00:00:00 829 [facility] 2022-03-09 2022-03-09 Kia [facility] [place] - [id number] M atagor 00:00:00 00:00:00 Discovery perry Simpson PA-C: [facility] [place] [facility] [address], [facility], [place] [address] , Ph. 2022-03-07 2022-03-07 Emergency ER JACLYN [facility] [id number] [place] 12:01:00 13:53:00 SHI -[id number] [facility] 2022-03-03 2022-03-03 Telephone Apolinar, 1.2.840.1 [id number] 2100 [id number] Methodi 00:00:00 00:00:[address] 3.430.2.7 Hospit a .3.365308 l .8 2022-03-03 2022-03-03 Telephone Apolinar 1.2.840.1 [id number] 2099 [id number] Methodi 00:00:00 00:00:[address] 3.430.2.7 Hospit a .3.738856 l .8 2022-03-02 2022-03-02 [facility] 1.2.840.1 [id number] 93142 21639 Methodi 05:56:00 11:56:00 Encounter Maynor Sánchez 66823.1.[address] 3.430.2.7 Hospit a .3.895661 l .8 2022-03-02 2022-03-02 [facility], 1.2.840.1 [id number] 97570 16559 Methodi 05:56:00 11:56:00 Encounter Maynor Sánchez 13468.1.[address] 3.430.2.7 Hospit a .3.174034 l .8 2022-03-02 2022-03-02 Anesthesia Alfreda Duvall 1.2.840.1 10 [id number] Methodi 07:29:00 09:55:00 Event Anna Adair 81021.1.[address] 3.430.2.7 Hospit a .3.021814 l .8 2022-03-02 2022-03-02 Anesthesia Alfreda Duvall. 1.2.840.1 10 [id number] Methodi 07:29:00 09:55:00 Event Anna Adair 67497.1.[address] 3.430.2.7 Hospit a .3.132344 l .8 2022-03-02 2022-03-02 Surgery [facility], 1.2.840.1 [id number] 354728 9352 Methodi 07:30:00 09:50:00 Maynor Sánchez 66342.1.1 735 s t 3.430.2.7 Hospit a .3.721003 l .8 2022-03-02 2022-03-02 Surgery [facility], 1.2.840.1 [id number] 485937 2691 Methodi 07:30:00 09:50:00 Maynor Sánchez 86896.1.1 735 s t 3.430.2.7 Hospit a .3.825730 l .8 2022-03-02 2022-03-02 Telephone Dejah, 1.2.840.1 [id number] 21 [id number] Methodi 00:00:00 00:00:[address] 3.430.2.7 Hospit a .3.387657 l .8 2022-03-02 2022-03-02 Telephone Dejah, 1.2.840.1 [id number] 21 [id number] Methodi 00:00:00 00:00:[address] 3.430.2.7 Hospit a .3.949054 l .8 2022-03-01 2022-03-01 [facility], 1.2.840.1 [id number] 81844 12279 Methodi 12:18:26 23:59:00 Encounter Maynor Sánchez 61294.1.[address] 3.430.2.7 Hospit a .3.648914 l .8 2022-03-01 2022-03-01 [facility], 1.2.840.1 [id number] 57082 06230 Methodi 12:18:26 23:59:00 Madison Sánchez 19239.1.[address] 3.430.2.7 Hospit a .3.864155 l .8 2022-03-01 2022-03-01 [facility] 1.2.840.1 [id number] 963 8008572 Methodi 09:30:00 10:30:00 doris Sánchez 62833.1.1 034 s t Testing 3.430.2.7 Hospit a .3.178020 l .8 2022-03-01 2022-03-01 [facility], 1.2.840.1 [id number] 774 5415451 Methodi 09:30:00 10:30:00 doris Sánchez 80878.1.1 034 s t Testing 3.430.2.7 Hospit a .3.285334 l .8 2022-03-01 2022-03-01 Telephone [place], 1.2.840.1 [id number] 21 [id number] Methodi 00:00:00 00:00:[address] 3.430.2.7 Hospit a .3.921487 l .8 2022-03-01 2022-03-01 Travel 1.2.840.1 1.2.985.911 3600 868007 Methodi 00:00:00 00:00:[address] 3.430.2.7 0.2.7.3.698 Ho spita .3.705693 084.8 l .8 2022-03-01 2022-03-01 Telephone [place], 1.2.840.1 [id number] 21 [id number] Methodi 00:00:00 00:00:[address] 3.430.2.7 Hospit a .3.375892 l .8 2022-03-01 2022-03-01 Travel 1.2.840.1 1.2.195.774 2088 923729 Methodi 00:00:00 00:00:[address] 3.430.2.7 0.2.7.3.698 Ho spita .3.555569 084.8 l .8 2022-02-26 2022-02-26 Telephone [place], 1.2.840.1 [id number] 2099685 Methodi 00:00:00 00:00:00 Maynor Sánchez 50236.1.1 279 s t 3.430.2.7 Hospit a .3.410021 l .8 2022-02-26 2022-02-26 Travel 1.2.840.1 1.2.197.372 7434 122990 Methodi 00:00:00 00:00:[address] 3.430.2.7 0.2.7.3.698 Ho spita .3.257427 084.8 l .8 2022-02-26 2022-02-26 Telephone [place], 1.2.840.1 [id number] 2099685 Methodi 00:00:00 00:00:00 Maynor Sánchez 79075.1.1 279 s t 3.430.2.7 Hospit a .3.202366 l .8 2022-02-26 2022-02-26 Travel 1.2.840.1 1.2.089.523 8944 762259 Methodi 00:00:00 00:00:[address] 3.430.2.7 0.2.7.3.698 Ho spita .3.452168 084.8 l .8 2022-02-24 2022-02-25 [facility] 1.2.840.1 1041 23106 [id number] Methodi 15:25:00 19:45:00 Basilio Diallo 52005.1.[address] 3.430.2.7 Hospit a .3.689081 l .8 2022-02-24 2022-02-25 Emergency [facility] [place] 1.2.840.1 1041 49460 [id number] Methodi 15:25:00 19:45:00 Basilio Diallo 03540.1.[address] 3.430.2.7 Hospit a .3.061895 l .8 2022-02-25 2022-02-25 [facility], 1.2.840.1 [id number] 568 [id number] Methodi 00:00:00 00:00:00 Orders Maynor Sánchez 95880.1.1 241 s t 3.430.2.7 Hospit a .3.472970 l .8 2022-02-25 2022-02-25 Orders Dejah, 1.2.840.1 [id number] 2099 488400 Methodi 00:00:00 00:00:00 Only Rich 90429.1.[address] 3.430.2.7 Hospit a .3.561632 l .8 2022-02-25 2022-02-25 [facility], 1.2.840.1 [id number] 443 4084078 Methodi 00:00:00 00:00:00 Orders Maynor Sánchez 05435.1.1 241 s t 3.430.2.7 Hospit a .3.465059 l .8 2022-02-25 2022-02-25 Orders Dejah, 1.2.840.1 [id number] 2099 201932 Methodi 00:00:00 00:00:00 Only Rich 36701.1.[address] 3.430.2.7 Hospit a .3.252221 l .8 2022-02-24 2022-02-24 [facility], 1.2.840.1 [id number] 02568 16220 Methodi 18:39:58 23:59:00 Encounter Maynor Sánchez 70761.1.[address] 3.430.2.7 Hospit a .3.382150 l .8 2022-02-24 2022-02-24 [facility], 1.2.840.1 [id number] 18814 37143 Methodi 18:39:58 23:59:00 Encounter Maynor Sánchez [address]1517.1.[address] 3.430.2.7 Hospit a .3.522004 l .8 2022-02-24 2022-02-24 [facility], 1.2.840.1 [id number] 41097 Methodi 18:39:26 23:59:00 Encounter Maynor Sánchez [address]594.1.[address] 3.430.2.7 Hospit a .3.483108 l .8 2022-02-24 2022-02-24 [facility], 1.2.840.1 [id number] Methodi 18:39:26 23:59:00 Encounter Maynor Sánchez [address]111.1.[address] 3.430.2.7 Hospit a .3.555239 l .8 2022-02-24 2022-02-24 [facility], 1.2.840.1 [id number] 121651 8416 Methodi 00:00:00 00:00:00 Only Maynor Sánchez 72482.1.1 790 s t 3.430.2.7 Hospit a .3.627447 l .8 2022-02-24 2022-02-24 Travel 1.2.840.1 1.2.086.753 1422 495656 Methodi 00:00:00 00:00:[address] 3.430.2.7 0.2.7.3.698 Ho spita .3.444303 084.8 l .8 2022-02-24 2022-02-24 [facility], 1.2.840.1 [id number] Methodi 00:00:00 00:00:00 Only Maynor Sánchez 67402.1.1 790 s t 3.430.2.7 Hospit a .3.156092 l .8 2022-02-24 2022-02-24 Travel 1.2.840.1 1.2.330.929 5846 086808 Methodi 00:00:00 00:00:[address] 3.430.2.7 0.2.7.3.698 Ho spita .3.436837 084.8 l .8 2022-02-12 2022-02-12 Emergency ER GUME, [facility] [id number] [place] 08:42:00 13:17:00 JASON -[id number] [facility] 2022-01-26 2022-01-26 Outpatient [facility]REIA [facility] 909 [place] 12:18:00 12:18:00 _DOREEN 19 [facility] 2022-01-17 2022-01-17 Emergency ER Melissa, [facility] [id number] [place] 18:06:00 21:18:00 Alexa -[id number] [facility] 2021-12-18 2021-12-18 Office Nick, 1.2.840.1 [id number] Methodi 10:20:00 11:32:26 Visit Maynor Sánchez 34351.1.1 071 s t 3.430.2.7 Hospit a .3.813444 l .8 2021-12-18 2021-12-18 Outpatient NICK [facility]EN [facility] [id number] 960 [place] 00:00:00 00:00:00 MAYNOR [facility] 2021-12-18 2021-12-18 Travel 1.2.840.1 1.2.594.342 1858 [id number] Methodi 00:00:00 00:00:[address] 3.430.2.7 0.2.7.3.698 Ho spita .3.738251 084.8 l .8 2021-12-18 2021-12-18 Outpatient NICK GUNDERSEN [facility] [id number] 971 [place] 00:00:00 00:00:00 MAYNOR Armenta [facility] 2021-11-30 2021-11-30 Emergency ER JACKY, [facility] [id number] [place] 01:26:00 04:02:00 HARRISON -[id number] [facility] 2021-11-06 2021-11-06 Outpatient Gloria DOBSON [facility] [id number] [place] 12:33:00 12:33:00 [facility] 2021-11-06 2021-11-06 Outpatient Duarte_M [facility] [id number] [place] 00:00:00 00:00:00 0429 [facility] 2021-11-06 2021-11-06 Susan [facility] [place] - [id number] M at[place]or 00:00:00 00:00:00 Aracelis Hunter DISPLAY ARTIST: [address] [place] [id number] , Ph. 2021-11-05 2021-11-05 Outpatient Duarte_M [facility] [id number] [place] 04:51:00 04:51:00 0428 [facility] 2021-09-14 2021-09-14 Outpatient Koudela_A [facility] [id number] [place] 12:39:00 12:39:00 0307 [facility] 2021-09-14 2021-09-14 Kia [facility] [place] - [id number] M at[place] 00:00:00 00:00:00 Discovery Calvin da PA-C: [facility] [address] [address] , Ph. 2021-09-14 2021-09-14 Travel 1.2.840.1 1.2.139.664 [id number] Methodi 00:00:00 00:00:[address] 3.430.2.7 0.2.7.3.698 Ho spita .3.406308 084.8 l .8 2021-08-10 2021-08-10 Outpatient Koudela_A [facility] [id number] [place] 11:36:00 11:36:00 0131 [facility] 2021-08-10 2021-08-10 Outpatient Koudela_A [facility] [id number] [place] 11:36:00 11:36:00 0211 [facility] 2021-08-10 2021-08-10 Outpatient EL CALVIN, [facility] [id number] [place] 11:05:00 11:05:00 KIA -[id number] [facility] 2021-06-24 2021-06-24 Inpatient ER Nawaf, [facility] [id number] [place] 00:24:00 13:53:00 Abraham -[id number] [facility] 2021-05-04 2021-05-04 Outpatient Zuniga_F [facility] [id number] 2020 [place] 10:22:00 10:22:00 1220 [facility] 2021-04-28 2021-04-29 Emergency ER MARCUS, [facility] [id number] [place] 18:03:00 01:22:00 BARBARA -[id number] [facility] 2021-03-26 2021-03-26 Outpatient Zuniga_F [facility]G [id number]- 2020 [place] 10:53:00 10:53:00 0916 [facility] 2021-03-26 2021-03-26 Outpatient YASMEEN Perry, [facility] [id number] [place] 08:44:00 08:44:00 Ronnell -[id number] [facility] 2021-03-26 2021-03-26 Ronnell [facility] [place] - [id number] [place] 00:00:00 00:00:00 Aracelis Klein Medical MD: [address] [facility] [address], [place] [address] , Ph. 2021-03-10 2021-03-10 Outpatient Zuniga_F [facility] MMG [id number] [place] 04:23:00 04:23:00 0831 [facility] 2021-03-10 2021-03-10 Ronnell [facility] [place] - [id number] [place] 00:00:00 00:00:00 Aracelis Klein MD: [address] [facility] [address], [place] [phone] , Ph. 2021-02-19 2021-02-19 Emergency ER CELSA MUNGUIA [facility] [id number] [place] 09:17:00 18:11:00 -[id number] [facility] 2021-02-18 2021-02-18 Outpatient Z[facility]iga_F [facility] [address]- 2020 [place] 10:58:00 10:58:00 0811 [facility] 2021-02-13 2021-02-13 Outpatient Zuniga_S [facility] [id number] [place] 11:36:00 11:36:00 0806 [facility] 2021-02-11 2021-02-11 Outpatient Zuniga_S MMG [facility] [id number] [place] 04:11:00 04:11:00 0804 [facility] 2021-01-18 2021-01-18 Emergency ER CHINO [facility] [id number] [place] 07:23:00 15:33:00 JASONNDVESTAFF -[id number] [facility] 2021-01-02 2021-01-02 Outpatient Zuniga_S MMG [facility] [id number] [place] 11:03:00 11:03:00 0625 [facility] 2021-01-02 2021-01-02 Outpatient Zuniga_S MMG [facility] [id number] 2020 [place] 11:03:00 11:03:00 0626 Medical [facility] 2021-01-02 2021-01-02 Radha [facility] [place] - [id number] [place] 00:00:00 00:00:00 [facility] [place] da 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 2020-07-15 2020-07-15 Outpatient Zuniga_F MMG [facility] [id number] 2020 [place] 12:50:00 12:50:00 0105 [facility] 2020-07-15 2020-07-15 Outpatient Zuniga_F MMG [facility] [id number] [place] 12:50:00 12:50:00 0111 [facility] 2020-07-15 2020-07-15 Tyson [facility] [place] - [id number] [place] 00:00:00 00:00:00 Discovery perry Munoz MD: [address] [place] [address] [address], [place] [address] , Ph. 2020-07-14 2020-07-14 Outpatient Zuniga_F MMG [facility] [id number] [place] 04:30:00 04:30:00 0104 [facility] 2020-07-14 2020-07-14 Ronnell [facility] - [id number] [place] 00:00:00 00:00:00 Aracelis Klein MD: [address] [place] [address] [address], [place] [address] , Ph. 2020-07-10 2020-07-10 Outpatient Zuniga_F MMG [facility] [id number] [place] 10:29:00 10:29:00 1231 [facility] 2020-07-07 2020-07-08 Emergency ER CHINO, [facility] [id number] [place] 23:32:00 12:45:00 PRISCILA [id number] [facility] 2020-02-26 2020-02-26 Outpatient Zuniga_F MMG [facility] [id number] [place] 12:39:00 12:39:00 1229 [facility] 2020-02-26 2020-02-26 Outpatient Zuniga_F MMG [facility] [id number] [place] 12:39:00 12:39:00 1230 [facility] 2020-01-30 2020-01-30 Outpatient Zuniga_F MMG [facility] [id number] [place] 08:08:00 08:08:00 0722 [facility] 2020-01-30 2020-01-30 Ronnell [facility] [place] - [id number] [place] 00:00:00 00:00:00 Aracelis Klein MD: [address] [place] [address] [address], [place] [address] , Ph. 2020-01-29 2020-01-29 Outpatient Raju_P [facility]G [facility] [id number] [place] 04:40:00 04:40:00 0721 [facility] 2019-11-06 2019-11-06 Outpatient Raju_P MMG [facility] [id number] [place] 03:29:00 03:29:00 0428 [facility] 2019-11-06 2019-11-06 Outpatient Raju_P MMG [facility] [id number] [place] 03:29:00 03:29:00 042 [facility] 2019-03-02 2019-03-02 Outpatient YASMEEN ASCENCIO, [facility] [id number] [place] 11:02:00 11:02:00 BYROLPHIL -[id number] [facility] 2019-02-13 2019-02-13 Emergency ER CHINO, [facility] [id number] [place] 17:16:00 18:34:00 PRISCILA -[id number] [facility] 2018-02-07 2018-02-07 Outpatient YASMEEN LUU [facility] D00 [id number] [place] 09:47:00 09:47:00 SUNNY [place] -[id number] [facility] 2017-10-12 2017-10-12 Emergency ER OWO, TOKS [facility] [id number] [place] 17:50:00 19:49:00 -[id number] [facility] 2017-06-01 2017-06-01 Emergency ER OWO, TOKS [facility] [id number] [place] 04:32:00 06:26:00 -[id number] [facility] 2017-02-24 2017-02-24 Outpatient YASMEEN ASCENCIO [facility] [id number] [place] 08:41:00 08:41:00 BYROLYN -[id number] [facility] 2017-01-13 2017-01-13 Emergency ER UGORJI, [facility] [id number] [place] 00:20:00 03:56:00 CLEALONZO -[id number] [facility] 2016-09-02 2016-09-02 Emergency ER UGORJI, [facility] [id number] [place] 13:20:00 14:30:00 CLEMENT -[id number] [facility] 2016-04-28 2016-04-29 Emergency ER OWO, TOKS [facility] [id number] [place] 22:59:00 01:22:00 -[id number] [facility] 2015-09-28 2015-09-29 Emergency ER SAEMI, [facility] [id number] [place] 21:04:00 08:15:00 NUNO -[id number] [facility] 2015-05-05 2015-05-05 Emergency ER UGORJI, [facility] [id number] [place] 19:34:00 21:26:00 CLEALONZO -[id number] [facility] 2014-11-07 2014-11-08 Emergency ER OWO, TOKS [facility] [id number] [place] 23:26:00 04:30:00 -[id number] [facility] 2014-08-01 2014-08-01 Outpatient EL VALLOPPILLI [facility] D00 [id number] [place] 12:03:00 12:03:00 Mario Alberto AMDREAI -[id number] [facility] 2011-12-29 2011-12-29 Emergency ER OTINWA, [facility] [id number] [place] 19:51:00 22:10:00 PARKER -[id number] [facility] 2011-11-12 2011-11-12 Outpatient EL VALLOPPILLI [facility] D00 [id number] [place] 07:58:00 07:58:00 Mario Alberto AMMINI -[id number] [facility] 2011-10-10 2011-10-11 Emergency ER THAKKAR, [facility] [id number] [place] 22:24:00 01:45:00 WAS -[id number] [facility] 2011-10-06 2011-10-06 Emergency ER UGORJI, [facility] [id number] [place] 00:27:00 06:30:00 CLEMENT -[id number] [facility] 2011-09-08 2011-09-08 Outpatient EL BELL [facility] D00 [id number] [place] 11:57:00 11:57:00 L, MARIA ANTONIADREAI -[id number] [facility] 2010-06-16 2010-06-17 Emergency ER LARISSA, [facility] [id number] [place] 18:00:00 04:05:00 ZBIGNIEW -[id number] [facility] 2010-03-24 2010-03-24 Outpatient EL BELL [facility] D00 [id number] [place] 14:21:00 14:21:00 L, AMMINI -[id number] [facility] Results Test Description Test Time Test Comments [...] alkaline 60 U/L 40-1 30 phosphatase, total) [facility] 12:31[facility]00 Test Item Value Reference Range Interpretation Comments lipase (test code = lipase) 290 U/L 13-60 H [facility] W Auto Differential panel - [id number] 12:07:00 Test Item Value Reference Range Interpretation [...] NRBC# (test code = NRBC#) 0 K/uL [facility]2022-06-16 07:40:00 Test Item Value [...] (test code = normal normal platelet morphology) [facility]07 07:12:00 Test Item Value Reference Range Interpretation Comments lipase (test code = lipase) 432 U/L 13-60 H [facility] - Serum or [...] U/L 40-130 code = alkaline phosphatase, total) [facility] 07:06:00 Test Item Value Reference Range Interpretation Comments LDH (test code = LDH) 421 U/L 135-225 H [facility]22-[facility]-07 07:06:00 Test Item Value Reference Range Interpretation Comments LDH (test code = LDH) 421 U/L 135-225 H [facility] Differential panel - [id number] 06:46:00 Test Item Value Reference Range Interpretation [...] morph. normal RBC code = morphology comment) [facility]22-12-06 11:10:00 Test Item Value Reference Range Interpretation Comments lipase (test code = lipase) 478 U/L 13-60 H [facility] - Serum or [...] U/L 40-130 code = alkaline phosphatase, total) [facility] W Ordered Manual Differential panel - [id number] 10:52:00 Test Item Value Reference Range Interpretation [...] normal code = platelet morphology) [facility]2022-06-14 05:46:00 Test Item Value [...] (test code = normal normal platelet morphology) [facility] - Serum or [...] U/L 40-130 code = alkaline phosphatase, total) [facility]22-12-05 05:30:00 Test Item Value Reference Range Interpretation Comments lipase (test code = lipase) 273 U/L 13-60 H [facility] W Auto Differential panel - [id number] 05:16:00 Test Item Value Reference Range Interpretation [...] morph. normal RBC code = morphology comment) [facility] (reflexed)2022-06-13 11:13:00 Test Item Value [...] (test code = normal normal platelet morphology) [facility] diff (reflexed)2022-06-13 11:13:00 Test Item Value [...] (test code = normal normal platelet morphology) [facility] diff (reflexed)2022-06-13 11:13:00 Test Item Value [...] (test code = normal normal platelet morphology) [facility] diff (reflexed)2022-06-13 11:13:00 Test Item Value [...] (test code = normal normal platelet morphology) [facility] W Auto Differential panel - [id number] 08:26:00 Test Item Value Reference Range Interpretation [...] NRBC# (test code = NRBC#) 0 K/uL [facility] - [id number] 08:26:00 Test Item Value Reference Range Interpretation [...] NRBC# (test code = NRBC#) 0 K/uL [facility] - Serum or [...] U/L 40-130 code = alkaline phosphatase, total) [facility]22-12-04 08:22:00 Test Item Value Reference Range Interpretation Comments lipase (test code = lipase) 226 U/L 13-60 H [facility] 2000 panel - Serum or [...] U/L 40-130 code = alkaline phosphatase, total) [facility]22-12-04 08:22:00 Test Item Value Reference Range Interpretation Comments lipase (test code = lipase) 226 U/L 13-60 H [facility] - Serum or [...] U/L 40-130 code = alkaline phosphatase, total) [facility]2022-12-03 04:36:00 Test Item Value Reference Range Interpretation Comments lipase (test code = lipase) 102 U/L 13-60 H [facility]2022-12-03 04:36:00 Test Item Value Reference Range Interpretation Comments lipase (test code = lipase) 102 U/L 13-60 H [facility] - Serum or [...] U/L 40-130 code = alkaline phosphatase, total) [facility]22-12-03 04:36:00 Test Item Value Reference Range Interpretation Comments lipase (test code = lipase) 102 U/L 13-60 H [facility]2022-12-03 04:36:00 Test Item Value Reference Range Interpretation Comments lipase (test code = lipase) 102 U/L 13-60 H [facility] Differential panel - [id number] 04:18:00 Test Item Value Reference Range Interpretation [...] NRBC# (test code = NRBC#) 0 K/uL [facility] W Auto Differential panel - [id number] 04:18:00 Test Item Value Reference Range Interpretation [...] NRBC# (test code = NRBC#) 0 K/uL [place] [id number] 08:39:00 Test Item Value Reference Range Interpretation Comments LDH (test code = LDH) 457 U/L 135-225 H [place] [id number] 08:39:00 Test Item Value Reference Range Interpretation Comments LDH (test code = LDH) 457 U/L 135-225 [facility] [id number] 08:26:00 Test Item Value Reference Range Interpretation Comments lactic acid (test code = lactic 1.12 mmol/L 0.5-2.2 acid) [id number] 08:26:00 Test Item Value Reference Range Interpretation Comments lactic acid (test code = lactic 1.12 mmol/L 0.5-2.2 acid) [facility]-02 07:47:00 Test Item Value Reference Range Interpretation Comments lipase (test code = lipase) 136 U/L 13-60 H [facility]2022-12-02 07:47:00 Test Item Value Reference Range Interpretation Comments lipase (test code = lipase) 136 U/L 13-60 H [facility] - Serum or [...] U/L 40-130 code = alkaline phosphatase, total) [facility] - Serum or [...] U/L 40-130 code = alkaline phosphatase, total) [facility] diff (reflexed)2022-06-11 07:30:00 Test Item Value Reference [...] (test code = normal normal platelet morphology) [facility]2022-06-11 07:30:00 Test Item Value [...] (test code = normal normal platelet morphology) [facility] W Auto Differential panel - [id number] 07:23:00 Test Item Value Reference Range Interpretation [...] morph. normal RBC code = morphology comment) [facility] W Auto Differential panel - [id number] 07:23:00 Test Item Value Reference Range Interpretation [...] normal RBC code = morphology comment) [facility] panel - Arterial [id number] 15:03:00 Test Item Value Reference Range Interpretation [...] (test code = O2 7.9 mmol/L content) [facility] panel - Arterial [id number] 15:03:00 Test Item Value Reference Range Interpretation [...] (test code = O2 7.9 mmol/L content) [facility] [id number] 13:03:00 Test Item Value Reference Range Interpretation Comments blood culture (test code = final report. blood culture) [facility] [id number] 13:03:00 Test Item Value Reference Range Interpretation Comments blood culture (test code = final report. blood culture) [facility]2022-06-10 07:41:00 Test Item Value Reference [...] (test code = normal normal platelet morphology) [facility] diff (reflexed)2022-06-10 07:41:00 Test Item Value [...] (test code = normal normal platelet morphology) [facility]01 07:33:00 Test Item Value Reference Range Interpretation Comments LDH (test code = LDH) 319 U/L 135-225 H [facility]2022-12-01 07:33:00 Test Item Value Reference Range Interpretation Comments LDH (test code = LDH) 319 U/L 135-225 H [facility] - Serum or [...] U/L 40-130 code = alkaline phosphatase, total) [facility]-01 07:28:00 Test Item Value Reference Range Interpretation Comments lipase (test code = lipase) 297 U/L 13-60 H [facility] - Serum or [...] U/L 40-130 code = alkaline phosphatase, total) [facility]22-12-01 07:28:00 Test Item Value Reference Range Interpretation Comments lipase (test code = lipase) 297 U/L 13-60 H [facility] [id number] 07:26:00 Test Item Value Reference Range Interpretation Comments lactic acid (test code = lactic 1.18 mmol/L 0.5-2.2 acid) [facility] [id number] 07:26:00 Test Item Value Reference Range Interpretation Comments lactic acid (test code = lactic 1.18 mmol/L 0.5-2.2 acid) [facility] [id number] 06:53:00 Test Item Value Reference Range Interpretation Comments ionized calcium (test code = 4.17 mg/dL 4.34-5.00 L ionized calcium) [facility] W Auto Differential panel - [id number] 06:53:00 Test Item Value Reference Range Interpretation [...] morph. normal RBC code = morphology comment) [facility] [id number] 06:53:00 Test Item Value Reference Range Interpretation Comments ionized calcium (test code = 4.17 mg/dL 4.34-5.00 L ionized calcium) [facility] W Auto Differential panel - [id number] 06:53:00 Test Item Value Reference Range Interpretation [...] morph. normal RBC code = morphology comment) [facility]2022-11-30 06:34:00 Test Item Value Reference Range Interpretation Comments lipase (test code = lipase) 1018 U/L 13-60 H [facility]2022-11-30 06:34:00 Test Item Value Reference Range Interpretation Comments lipase (test code = lipase) 1018 U/L 13-60 H [facility]2022-11-30 06:33:00 Test Item Value Reference Range Interpretation Comments LDH (test code = LDH) 296 U/L 135-225 H [facility]2022-11-30 06:33:00 Test Item Value Reference Range Interpretation Comments LDH (test code = LDH) 296 U/L 135-225 H [facility] - Serum or [...] U/L 40-130 code = alkaline phosphatase, total) [facility] - Serum or [...] U/L 40-130 code = alkaline phosphatase, total) [facility] [id number] 06:26:00 Test Item Value Reference Range Interpretation Comments lactic acid (test code = lactic 1.00 mmol/L 0.5-2.2 acid) [facility] [id number] 06:26:00 Test Item Value Reference Range Interpretation Comments lactic acid (test code = lactic 1.00 mmol/L 0.5-2.2 acid) [facility] W Auto Differential panel - [id number] 06:16:00 Test Item Value Reference Range Interpretation [...] NRBC# (test code = NRBC#) 0 K/uL [facility] W Auto Differential panel - [id number] 06:16:00 Test Item Value Reference Range Interpretation [...] NRBC# (test code = NRBC#) 0 K/uL [facility] [id number] 05:06:00 Test Item Value Reference Range Interpretation [...] (test code = 6.828 cholesterol risk ratio) [facility] [id number] 05:06:00 Test Item Value Reference Range Interpretation [...] (test code = 6.828 cholesterol risk ratio) [facility]2022-11-29 04:59:00 Test Item Value Reference Range Interpretation Comments lipase (test code = lipase) 1955 U/L 13-60 H [facility]2022-11-29 04:59:00 Test Item Value Reference Range Interpretation Comments lipase (test code = lipase) 1955 U/L 13-60 H [facility]2022-11-29 04:59:00 Test Item Value Reference Range Interpretation Comments lipase (test code = lipase) 1955 U/L 13-60 H [facility]2022-11-29 04:59:00 Test Item Value Reference Range Interpretation Comments lipase (test code = lipase) 1955 U/L 13-60 H [facility] Differential panel - [id number] 04:07:00 Test Item Value Reference Range Interpretation [...] NRBC# (test code = NRBC#) 0 K/uL [facility] W Auto Differential panel - [id number] 04:07:00 Test Item Value Reference Range Interpretation [...] NRBC# (test code = NRBC#) 0 K/uL [facility] [id number] 18:23:00 Test Item Value Reference Range Interpretation Comments alcohol level (test code = alcohol < 10.0 0.0-10.1 level) [facility] [id number] 18:23:00 Test Item Value Reference Range Interpretation Comments alcohol level (test code = alcohol < 10.0 0.0-10.1 level) [facility]2022-08-23 11:47:00 Test Item Value Reference Range Interpretation Comments POC glucose (test code = 103 mg/dL 65-99 H Ope rator Name: 95384-1) Esmail Quratula in [facility] ID: [id number] able: RN Notified Lab Interpretation (test Abnormal code = 66848-3) [facility]2022-08-23 11:47:00 Test Item Value Reference Range Interpretation Comments POC glucose (test code = 103 mg/dL 65-99 H Ope rator Name: 85585-3) Esmail Quratula in [facility] ID: [id number] able: RN Notified Lab Interpretation (test Abnormal code = 81988-5) [facility]2022-08-23 11:47:00 Test Item Value Reference Range Interpretation Comments POC glucose (test code = 103 mg/dL 65-99 H Ope rator Name: 44860-1) Esmail Quratula in [facility] ID: [id number] able: RN Notified Lab Interpretation (test Abnormal code = 39139-9) [facility]2022-08-23 11:47:00 Test Item Value Reference Range Interpretation Comments POC glucose (test code = 103 mg/dL 65-99 H Ope rator Name: 50134-5) Esmail Quratula in [facility] ID: [id number] able: RN Notified Lab Interpretation (test Abnormal code = 67104-1) [facility]2022-08-23 11:47:00 Test Item Value Reference Range Interpretation Comments POC glucose (test code = 103 mg/dL 65-99 H Ope rator Name: 63465-8) Esmail Quratula in [facility] ID: [id number] able: RN Notified Lab Interpretation (test Abnormal code = 75560-4) [facility]2022-08-23 11:47:00 Test Item Value Reference Range Interpretation Comments POC glucose (test code = 103 mg/dL 65-99 H Ope rator Name: 69898-4) Esmail Quratula in [facility] ID: [id number] able: RN Notified Lab Interpretation (test Abnormal code = 80940-8) [facility]2022-08-23 11:47:00 Test Item Value Reference Range Interpretation Comments POC glucose (test code = 103 mg/dL 65-99 H Ope rator Name: 12068-4) Esmail Quratula in [facility] ID: [id number] able: RN Notified Lab Interpretation (test Abnormal code = 86531-9) [facility]2022-08-23 11:47:00 Test Item Value Reference Range Interpretation Comments POC glucose (test code = 103 mg/dL 65-99 H Ope rator Name: 94453-2) Esmail Quratula in [facility] ID: [id number] able: RN Notified Lab Interpretation (test Abnormal code = 58641-1) [facility] [id number] 11:47:00 Test Item Value Reference Range Interpretation Comments POC glucose (test code = 103 mg/dL 65-99 H Ope rator Name: 79871-3) Esmcarito Quratula in [facility] ID: [id number] able: RN Notified Lab Interpretation (test Abnormal code = 17059-8) [facility]2022-08-23 11:47:00 Test Item Value Reference Range Interpretation Comments POC glucose (test code = 103 mg/dL 65-99 H Ope rator Name: 31192-7) Esmail Quratula in [facility] ID: [id number] able: RN Notified Lab Interpretation (test Abnormal code = 75858-2) [facility]2022-08-23 11:47:00 Test Item Value Reference Range Interpretation Comments POC glucose (test code = 103 mg/dL 65-99 H Ope rator Name: 29117-3) Esmcarito Quratula in [facility] ID: [id number] able: RN Notified Lab Interpretation (test Abnormal code = 26724-2) [facility]2022-08-23 11:47:00 Test Item Value Reference Range Interpretation Comments POC glucose (test code = 103 mg/dL 65-99 H Ope rator Name: 72509-9) Esmcarito Quratula in [facility] ID: [id number] able: RN Notified Lab Interpretation (test Abnormal code = 14024-4) [facility]2022-08-23 11:47:00 Test Item Value Reference Range Interpretation Comments POC glucose (test code = 103 mg/dL 65-99 H Ope rator Name: 57209-5) Esmail Quratula in [facility] ID: [id number] able: RN Notified Lab Interpretation (test Abnormal code = 29984-2) [facility]2022-08-23 11:47:00 Test Item Value Reference Range Interpretation Comments POC glucose (test code = 103 mg/dL 65-99 H Ope rator Name: 09801-6) Esmail Quratula in [facility] ID: [id number] able: RN Notified Lab Interpretation (test Abnormal code = 83530-4) [facility]2022-08-23 11:47:00 Test Item Value Reference Range Interpretation Comments POC glucose (test code = 103 mg/dL 65-99 H Ope rator Name: 78988-6) Esmail Quratula in [facility] ID: [id number] able: RN Notified Lab Interpretation (test Abnormal code = 31567-1) [facility]2022-08-23 11:47:00 Test Item Value Reference Range Interpretation Comments POC glucose (test code = 103 mg/dL 65-99 H Ope rator Name: 27929-2) Esmail Quratula in [facility] ID: [id number] able: RN Notified Lab Interpretation (test Abnormal code = 38043-5) [facility]2022-08-23 11:47:00 Test Item Value Reference Range Interpretation Comments POC glucose (test code = 103 mg/dL 65-99 H Ope rator Name: 26073-6) Esmail Quratula in [facility] ID: [id number] able: RN Notified Lab Interpretation (test Abnormal code = 60873-4) [facility]2022-08-23 11:47:00 Test Item Value Reference Range Interpretation Comments POC glucose (test code = 103 mg/dL 65-99 H Ope rator Name: 59652-1) Esmail Quratula in [facility] ID: [id number] able: RN Notified Lab Interpretation (test Abnormal code = 82056-8) [facility]2022-08-23 11:47:00 Test Item Value Reference Range Interpretation Comments POC glucose (test code = 103 mg/dL 65-99 H Ope rator Name: [id number]) Esmail Quratula in [facility] ID: [id number] able: RN Notified Lab Interpretation (test Abnormal code = 03685-0) [facility]2022-08-23 11:47:00 Test Item Value Reference Range Interpretation Comments POC glucose (test code = 103 mg/dL 65-99 H Ope rator Name: [id number]) Esmail Quratula in [facility] ID: [id number] able: RN Notified Lab Interpretation (test Abnormal code = 64036-9) [facility] [id number] 11:47:00 Test Item Value Reference Range Interpretation Comments POC glucose (test code = 103 mg/dL 65-99 H Ope rator Name: [id number]) Esmail Quratula in [facility] ID: [id number] able: RN Notified Lab Interpretation (test Abnormal code = 72305-9) [facility]2022-08-23 11:47:00 Test Item Value Reference Range Interpretation Comments POC glucose (test code = 103 mg/dL 65-99 H Ope rator Name: 41813-2) Esmail Quratula in [facility] ID: [id number] able: RN Notified Lab Interpretation (test Abnormal code = 15900-6) [facility]2022-08-23 11:47:00 Test Item Value Reference Range Interpretation Comments POC glucose (test code = 103 mg/dL 65-99 H Ope rator Name: [id number]) Esmail Quratula in [facility] ID: [id number] able: RN Notified Lab Interpretation (test Abnormal code = 13746-2) [facility]2022-08-23 11:47:00 Test Item Value Reference Range Interpretation Comments POC glucose (test code = 103 mg/dL 65-99 H Ope rator Name: [id number]) Esmail Quratula in [facility] ID: [id number] able: RN Notified Lab Interpretation (test Abnormal code = 47813-4) [facility]2022-08-23 11:47:00 Test Item Value Reference Range Interpretation Comments POC glucose (test code = 103 mg/dL 65-99 H Ope rator Name: [id number]) Esmail Quratula in [facility] ID: [id number] able: RN Notified Lab Interpretation (test Abnormal code = 25639-8) [facility]2022-08-23 11:47:00 Test Item Value Reference Range Interpretation Comments POC glucose (test code = 103 mg/dL 65-99 H Ope rator Name: 14194-5) Esmail Quratula in [facility] ID: [id number] able: RN Notified Lab Interpretation (test Abnormal code = 81895-1) [facility]2022-08-23 11:47:00 Test Item Value Reference Range Interpretation Comments POC glucose (test code = 103 mg/dL 65-99 H Ope rator Name: 33059-7) Esmail Quratula in [facility] ID: [id number] able: RN Notified Lab Interpretation (test Abnormal code = 58221-5) [facility]2022-08-23 11:47:00 Test Item Value Reference Range Interpretation Comments POC glucose (test code = 103 mg/dL 65-99 H Ope rator Name: 12294-6) Esmail Quratula in [facility] ID: [id number] able: RN Notified Lab Interpretation (test Abnormal code = 39660-2) [facility]2022-08-23 11:47:00 Test Item Value Reference Range Interpretation Comments POC glucose (test code = 103 mg/dL 65-99 H Ope rator Name: 27233-8) Esmail Quratula in [facility] ID: [id number] able: RN Notified Lab Interpretation (test Abnormal code = 09448-6) [facility] Pre/Post [id number] 20:29:23 Test Item Value Reference Range Interpretation Comments Ventricular rate (test 84 code = 253) Atrial rate (test code = 84 255) ID interval (test code = 172 266) QRSD [...] Emery MD ([id number]) on 03/01/2022 3:29:18 PM [facility] Pre/Post [id number] 20:29:23 Test Item Value Reference Range Interpretation Comments Ventricular rate (test code = 253) Atrial rate (test code = 255) ID interval (test code = 266) QRSD interval [...] Emery MD (2064) on 03/01/2022 3:29:18 PM [facility] Pre/Post [id number] 20:29:23 Test Item Value Reference Range Interpretation Comments Ventricular rate (test code = 253) Atrial rate (test code = 255) ID interval (test code = 266) QRSD interval [...] Emery MD (2064) on 03/01/2022 3:29:18 PM [facility] Pre/Post [id number] 20:29:23 Test Item Value Reference Range Interpretation Comments Ventricular rate (test code = 253) Atrial rate (test code = 255) ID interval (test code = 266) QRSD interval [...] Emery MD (2064) on 03/01/2022 3:29:18 PM [facility] Pre/Post [id number] 20:29:23 Test Item Value Reference Range Interpretation Comments Ventricular rate (test code = 253) Atrial rate (test code = 255) ID interval (test code = 266) QRSD interval [...] Emery MD (2064) on 03/01/2022 3:29:18 PM [facility] Pre/Post [id number] 20:29:23 Test Item Value Reference Range Interpretation Comments Ventricular rate (test code = 253) Atrial rate (test code = 255) ID interval (test code = 266) QRSD interval [...] Emery MD (2064) on 03/01/2022 3:29:18 PM [facility] Pre/Post [id number] 20:29:23 Test Item Value Reference Range Interpretation Comments Ventricular rate (test code = 253) Atrial rate (test code = 255) ID interval (test code = 266) QRSD interval [...] Emery MD (2064) on 03/01/2022 3:29:18 PM [facility] Pre/Post [id number] 20:29:23 Test Item Value Reference Range Interpretation Comments Ventricular rate (test code = 253) Atrial rate (test code = 255) ID interval (test code = 266) QRSD interval [...] Emery MD (2064) on 03/01/2022 3:29:18 PM [facility] Pre/Post [id number] 20:29:23 Test Item Value Reference Range Interpretation Comments Ventricular rate (test code = 253) Atrial rate (test code = 255) ID interval (test code = 266) QRSD interval [...] Emery MD (2064) on 03/01/2022 3:29:18 PM [facility] Pre/Post [id number] 20:29:23 Test Item Value Reference Range Interpretation Comments Ventricular rate (test code = 253) Atrial rate (test code = 255) ID interval (test code = 266) QRSD interval [...] Emery MD (2064) on 03/01/2022 3:29:18 PM [facility] Pre/Post [id number] 20:29:23 Test Item Value Reference Range Interpretation Comments Ventricular rate (test code = 253) Atrial rate (test code = 255) ID interval (test code = 266) QRSD interval [...] Emery MD (2064) on 03/01/2022 3:29:18 PM [facility] Pre/Post [id number] 20:29:23 Test Item Value Reference Range Interpretation Comments Ventricular rate (test code = 253) Atrial rate (test code = 255) ID interval (test code = 266) QRSD interval [...] Emery MD (2064) on 03/01/2022 3:29:18 PM [facility] Pre/Post [id number] 20:29:23 Test Item Value Reference Range Interpretation Comments Ventricular rate (test code = 253) Atrial rate (test code = 255) ID interval (test code = 266) QRSD interval [...] Emery MD (2064) on 03/01/2022 3:29:18 PM [facility] Pre/Post [id number] 20:29:23 Test Item Value Reference Range Interpretation Comments Ventricular rate (test code = 253) Atrial rate (test code = 255) ID interval (test code = 266) QRSD interval [...] Emery MD (2064) on 03/01/2022 3:29:18 PM [facility] Pre/Post [id number] 20:29:23 Test Item Value Reference Range Interpretation Comments Ventricular rate (test code = 253) Atrial rate (test code = 255) ID interval (test code = 266) QRSD interval [...] Emery MD (2064) on 03/01/2022 3:29:18 PM [facility] Pre/Post [id number] 20:29:23 Test Item Value Reference Range Interpretation Comments Ventricular rate (test code = 253) Atrial rate (test code = 255) ID interval (test code = 266) QRSD interval [...] Emery MD (2064) on 03/01/2022 3:29:18 PM [facility] Pre/Post [id number] 20:29:23 Test Item Value Reference Range Interpretation Comments Ventricular rate (test code = 253) Atrial rate (test code = 255) ID interval (test code = 266) QRSD interval [...] Emery MD (2064) on 03/01/2022 3:29:18 PM [facility] Pre/Post [id number] 20:29:23 Test Item Value Reference Range Interpretation Comments Ventricular rate (test 84 code = 253) Atrial rate (test code = 84 255) ID interval (test code = 172 266) QRSD [...] Emery MD (2064) on 03/01/2022 3:29:18 PM [facility] Pre/Post [id number] 20:29:23 Test Item Value Reference Range Interpretation Comments Ventricular rate (test 84 code = 253) Atrial rate (test code = 84 255) ID interval (test code = 172 266) QRSD [...] Emery MD (2064) on 03/01/2022 3:29:18 PM [facility] Pre/Post [id number] 20:29:23 Test Item Value Reference Range Interpretation Comments Ventricular rate (test 84 code = 253) Atrial rate (test code = 84 255) ID interval (test code = 172 266) QRSD [...] Emery MD (2064) on 03/01/2022 3:29:18 PM [facility] Pre/Post [id number] 20:29:23 Test Item Value Reference Range Interpretation Comments Ventricular rate (test 84 code = 253) Atrial rate (test code = 84 255) ID interval (test code = 172 266) QRSD [...] Emery MD (2064) on 03/01/2022 3:29:18 PM [facility] Pre/Post [id number] 20:29:23 Test Item Value Reference Range Interpretation Comments Ventricular rate (test 84 code = 253) Atrial rate (test code = 84 255) ID interval (test code = 172 266) QRSD [...] Emery MD (2064) on 03/01/2022 3:29:18 PM [facility] Pre/Post [id number] 20:29:23 Test Item Value Reference Range Interpretation Comments Ventricular rate (test 84 code = 253) Atrial rate (test code = 84 255) ID interval (test code = 172 266) QRSD [...] Emery MD (2064) on 03/01/2022 3:29:18 PM [facility] Pre/Post [id number] 20:29:23 Test Item Value Reference Range Interpretation Comments Ventricular rate (test 84 code = 253) Atrial rate (test code = 84 255) ID interval (test code = 172 266) QRSD [...] Emery MD (2064) on 03/01/2022 3:29:18 PM [facility] Pre/Post [id number] 20:29:23 Test Item Value Reference Range Interpretation Comments Ventricular rate (test 84 code = 253) Atrial rate (test code = 84 255) ID interval (test code = 172 266) QRSD [...] Emery MD (2064) on 03/01/2022 3:29:18 PM [facility] Pre/Post [id number] 20:29:23 Test Item Value Reference Range Interpretation Comments Ventricular rate (test 84 code = 253) Atrial rate (test code = 84 255) ID interval (test code = 172 266) QRSD [...] Emery MD (2064) on 03/01/2022 3:29:18 PM [facility] Pre/Post [id number] 20:29:23 Test Item Value Reference Range Interpretation Comments Ventricular rate (test 84 code = 253) Atrial rate (test code = 84 255) ID interval (test code = 172 266) QRSD [...] Emery MD (2064) on 03/01/2022 3:29:18 PM [facility] Pre/Post [id number] 20:29:23 Test Item Value Reference Range Interpretation Comments Ventricular rate (test 84 code = 253) Atrial rate (test code = 84 255) ID interval (test code = 172 266) QRSD [...] Emery MD (2064) on 03/01/2022 3:29:18 PM [facility] Pre/Post [id number] 20:29:23 Test Item Value Reference Range Interpretation Comments Ventricular rate (test code = 253) Atrial rate (test code = 255) ID interval (test code = 266) QRSD interval [...] Emery MD (2064) on 03/01/2022 3:29:18 [facility] [Presence] in Respiratory specimen by TENZIN with probe [id number] 18:27:20 Test Item Value Reference Range Interpretation Comments SARS-CoV-2 (COVID-19) RNA Not detected [Presence] in Respiratory specimen by TENZIN with probe detection (test code = 51495-4) Whether patient is employed in a Unknown healthcare setting (test code = 14808-5) Whether the patient has symptoms Unknown related to condition of interest (test code = 82955-1) Whether the patient was Unknown hospitalized for condition of interest (test code = 90613-3) Whether the patient was admitted Unknown to intensive care unit (ICU) for condition of interest (test code = 10999-2) Whether patient resides in a Unknown congregate care setting (test code = 67847-1) status (test code = Unknown 42766-0) Date and time of symptom onset Unknown (test code = 62838-7) [facility] RNA [Presence] in Respiratory specimen by TENZIN with probe [id number] 01:00:31 Test Item Value Reference Range Interpretation Comments SARS-CoV-2 (COVID-19) RNA Not detected [Presence] in Respiratory specimen by TENZIN with probe detection (test code = 93216-4) Whether patient is employed in a Unknown healthcare setting (test code = 26995-3) Whether the patient has symptoms Unknown related to condition of interest (test code = 65879-6) Whether the patient was Unknown hospitalized for condition of interest (test code = 66404-3) Whether the patient was admitted Unknown to intensive care unit (ICU) for condition of interest (test code = 60156-3) Whether patient resides in a Unknown congregate care setting (test code = 53930-1) status (test code = Unknown 87475-6) Date and time of symptom onset Unknown (test code = 82457-3) [facility]V + SARS CoV 2 Ag panel, [place], upper respiratory [id number] 10:40:00 Test Item Value Reference Range Interpretation Comments RAPID SARS COV (test code = RAPID negative SARS COV) RAPID FLU A (test code = RAPID FLU negative A) RAPID FLU B (test code = RAPID FLU negative B) [facility] - Serum or [id number] 06:34:00 Test Item Value Reference Range Interpretation Comments cholesterol level (test code = 169 mg/dL 150-200 cholesterol level) triglycerides level (test code = 93 mg/dL <150 triglycerides level) HDL cholesterol (test code = HDL 52 mg/dL >55 L cholesterol) LDL cholesterol direct (test code = 108 mg/dL <100 H LDL cholesterol direct) cholesterol risk ratio (test code = 3.250 cholesterol risk ratio) [facility] [Mass/volume] in [id number] 00:00:00 Test Item Value Reference Range Interpretation Comments Hemoglobin A1c [Mass/volume] in Blood 5.3 % 4.0-6.0 (test code = 08747-6) [facility] [Units/volume] in Serum or [id number] 00:00:00 Test Item Value Reference Range Interpretation Comments Thyrotropin [Units/volume] in 0.44 uIU/mL 0.36-3.74 Serum or Plasma (test code = 3016-3) [facility]
[2023-01-12] MEDS ORDERED: Phenylephrine HCl 10 MG/ML 1 ML VIAL ONE (13:33)
[2023-01-12] MEDS ORDERED: LIDOCAINE 1% MPF 5 ML VIAL ONE (13:35)
--- NOTE | 2023-01-12 14:12 | ER ---
Nurse's Notes [facility] Name: Francesco Avelar Age: 27 yrs Sex: Male : 1995 Arrival Date: 01/12/2023 Time: 13:12 Bed 8 Private MD: Diagnosis: Priapism, unspecified Presentation: 01/12 13:17 Chief complaint: Patient states: Priapism since 0600 this morning. Coronavirus screen: ld1 At this time, the client does not indicate any symptoms associated with coronavirus-19. Ebola Screen: No symptoms or risks identified at this time. Initial Sepsis Screen: Does the patient meet any 2 criteria? No. Patient's initial sepsis screen is negative. Does the patient have a suspected source of infection? No. Patient's initial sepsis screen is negative. Risk Assessment: Do you want to hurt yourself or someone else? Patient reports no desire to harm self or others. Onset of symptoms was January 12, 2023. 13:17 Method Of Arrival: Ambulatory ld1 13:17 Acuity: MCKENZIE 3 ld1 Triage Assessment: 13:18 General: Appears in no apparent distress. comfortable, Behavior is calm, cooperative, ld1 appropriate for age. Pain: Denies pain. EENT: No signs and/or symptoms were reported regarding the EENT system. Neuro: Level of Consciousness is awake, alert, obeys commands, Oriented to person, place, time, situation, Appropriate for age. Cardiovascular: Capillary refill < 3 seconds Patient's skin is warm and dry. Respiratory: Airway is patent Respiratory effort is even, unlabored. GI: No signs and/or symptoms were reported involving the gastrointestinal system. : Reports pain scrotum. Derm: No signs and/or symptoms reported regarding the dermatologic system. Musculoskeletal: No signs and/or symptoms reported regarding the musculoskeletal system. Historical: - Allergies: 13:18 Imitrex; ld1 - PMHx: 13:18 adhd; Asthma; Bipolar disorder; priapism; spinal stenosis; ld1 - PSHx: 13:18 L5 S1 laminectomy; ld1 - Immunization history:: Adult Immunizations up to date, Client reports receiving the 2nd dose of the Covid vaccine. - Social history:: Smoking status: Patient denies any tobacco usage or history of. Patient/guardian denies using alcohol. Screenin:30 [facility] ED Fall Risk Assessment (Adult) History of falling in the last 3 months, bp including since admission No falls in past 3 months (0 pts). Abuse screen: Denies threats or abuse. Denies injuries from another. Nutritional screening: No deficits noted. Tuberculosis screening: No symptoms or risk factors identified. Assessment: 13:30 General: SEE TRIAGE NOTE. bp 14:41 Reassessment: DC HOME AMBULATORY. bp Vital Signs: 13:17 BP 145 / 87; Pulse 107; Resp 18; Temp 98.1(O); Pulse Ox 96% on R/A; Weight 81.65 kg; ld1 Height 5 ft. 10 in. ; Pain 0/10; 14:41 BP 137 / 85; Pulse 97; Resp 16; Pulse Ox 98% ; bp 13:17 Body Mass Index 25.83 (81.65 kg, 177.8 cm) ld1 13:17 Pain Scale: Adult ld1 ED Course: 13:13 Patient arrived in ED. rg4 13:15 Baljeet Garsia DO is Attending Physician. kb 13:18 Triage completed. ld1 13:18 Arm band placed on right wrist. ld1 13:20 Lang Lance, RN is Primary Nurse. bp 13:30 Patient has correct armband on for positive identification. Bed in low position. Call bp light in reach. Side rails up X2. Adult w/ patient. 14:10 Minesh Vivas MD is Referral Physician. ms3 14:41 No provider procedures requiring assistance completed. Patient did not have IV access bp during this emergency room visit. Administered Medications: 13:29 Drug: Lidocaine Infiltration (1 %) 5 mg Volume: 5 ml; Route: Infiltration; bp 13:30 Drug: Phenylephrine IV 1 vials Route: IV; Rate: calculated rate; Site: Other; bp Medication: 13:30 VIS not applicable for this client. bp Outcome: 14:11 Discharge ordered by . ms3 14:41 Discharged to home ambulatory, with family. bp 14:41 Condition: stable 14:41 Discharge instructions given to patient, Instructed on discharge instructions, follow up and referral plans. Demonstrated understanding of instructions, follow-up care. 14:42 Patient left the ED. bp Signatures: Aida Hayes FNP-C FNP-Abigail Steward rg4 Lang Lance, SHELLEY RN bp Garsia, Baljeet, DO DO ms3 Garsia, Rosibel, RN RN ld1
--- NOTE | 2023-01-12 14:12 | EDPHYS ---
Physician Documentation [facility] Name: Francesco Avelar Age: 27 yrs Sex: Male : 1995 Arrival Date: 01/12/2023 Time: 13:12 Bed 8 Private MD: ED Physician Baljeet Garsia HPI: 01/12 18:06 This 27 yrs old Male presents to ER via Ambulatory with complaints of Penile ms3 Problem. 18:06 27-year-old male with past medical history of ADHD, asthma, bipolar, priapism, spinal ms3 stenosis presents for priapism that began at 6:55 AM. Patient states his pain is a 4/10 described as aching. Patient denies alleviating or inciting factors. Historical: - Allergies: 13:18 Imitrex; ld1 - PMHx: 13:18 adhd; Asthma; Bipolar disorder; priapism; spinal stenosis; ld1 - PSHx: 13:18 L5 S1 laminectomy; ld1 - Immunization history:: Adult Immunizations up to date, Client reports receiving the 2nd dose of the Covid vaccine. - Social history:: Smoking status: Patient denies any tobacco usage or history of. Patient/guardian denies using alcohol. ROS: 18:06 Constitutional: Negative for fever, and chills. Neck: Negative for injury, pain, and ms3 swelling, Cardiovascular: Negative for chest pain, and palpitations. Respiratory: Negative for shortness of breath, cough, wheezing, and pleuritic chest pain, Abdomen/GI: Negative for abdominal pain, nausea, vomiting, diarrhea, and constipation. 18:06 : Positive for penile pain, priapism. 18:06 All other systems are negative. Exam: 18:06 Constitutional: This is a well developed, well nourished patient who is awake, alert, ms3 and in no acute distress. Head/Face: Normocephalic, atraumatic. Chest/axilla: Normal chest wall appearance and motion. Nontender with no deformity. Cardiovascular: Regular rate and rhythm with a normal S1 and S2. No gallops, murmurs, or rubs. Normal PMI, no JVD. No pulse deficits. Respiratory: Lungs have equal breath sounds bilaterally, clear to auscultation and percussion. No rales, rhonchi or wheezes noted. No increased work of breathing, no retractions or nasal flaring. Abdomen/GI: Soft, non-tender, with normal bowel sounds. No distension or tympany. No guarding or rebound. No evidence of tenderness throughout. 18:06 : Male external genitalia: Patient is not circumisioned. Priapism. Vital Signs: 13:17 BP 145 / 87; Pulse 107; Resp 18; Temp 98.1(O); Pulse Ox 96% on R/A; Weight 81.65 kg; ld1 Height 5 ft. 10 in. ; Pain 0/10; 14:41 BP 137 / 85; Pulse 97; Resp 16; Pulse Ox 98% ; bp 13:17 Body Mass Index 25.83 (81.65 kg, 177.8 cm) ld1 13:17 Pain Scale: Adult ld1 Procedures: 18:06 Performed Priapism. Shaft the patient's penis cleansed with alcohol prep. Patient ms3 declines local anesthesia with lidocaine. 250 mcg of phenylephrine was injected into the left penis with detumescence of priapism. No complications. Patient tolerated procedure well. MDM: 13:15 Patient medically screened. kb 18:06 Differential diagnosis: Priapism. Data reviewed: vital signs, nurses notes, and as a ms3 result, I will discharge patient. I considered the following discharge prescriptions or medication management in the emergency department Medications were administered in the Emergency Department. See MAR. Historians other than the Patient: Parent: Patient's mother. Care significantly affected by the following chronic conditions: ADHD, asthma, bipolar. Care significantly affected by the following Social Determinants of Health: Poor access to healthcare and/or lack of insurance. Counseling: I had a detailed discussion with the patient and/or guardian regarding: the historical points, exam findings, and any diagnostic results supporting the discharge/admit diagnosis, the need for outpatient follow up, to return to the emergency department if symptoms worsen or persist or if there are any questions or concerns that arise at home. Response to treatment: the patient's symptoms have resolved after treatment, the patient's condition has returned to base line, and as a result, I will discharge patient. Special discussion: I discussed with the patient/guardian in detail that at this point there is no indication for admission to the hospital. It is understood, however, that if the symptoms persist or worsen the patient needs to return immediately for re-evaluation. Administered Medications: 13:29 Drug: Lidocaine Infiltration (1 %) 5 mg Volume: 5 ml; Route: Infiltration; bp 13:30 Drug: Phenylephrine IV 1 vials Route: IV; Rate: calculated rate; Site: Other; bp Disposition Summary: 01/12/23 14:11 Discharge Ordered Location: Home ms3 Condition: Stable ms3 Diagnosis - Priapism, unspecified ms3 Followup: ms3 - With: Minesh Vivas MD - When: 2 - 3 days - Reason: Re-evaluation by your physician Discharge Instructions: - Discharge Summary Sheet ms3 - Priapism ms3 Forms: - Medication Reconciliation Form ms3 - Thank You Letter ms3 - Antibiotic Education ms3 - Prescription Opioid Use ms3 - [email or web address] ms3 Signatures: Aida Hayes, DESIGN CONSULTANT-C NASREEN-Lang Jones RN RN bp Baljeet Garsia DO DO ms3 Rosibel Garsia RN RN ld1
[2023-01-12 15:06] VITALS: TEMP 98.1
[2023-01-12 15:07] VITALS: BP 137/85; O2SAT 98
== END 2023-01-12 14:42 | disposition home or self-care (01) ==
LOC: ER 13:12
DX: N48.30 Priapism, unspecified (principal)
CPT/HCPCS: 96374; 99284; J2001; J2370

== ENCOUNTER 2023-01-23 14:31 | Emergency (ER) | payer BC, OTHER ==
--- OUTSIDE RECORDS SUMMARY | 2023-01-23 14:42 | XMS REPORT | Continuity of Care Document ---
:1995 Author Organization [facility] t Address [address] [place] [address] Support Name Relationship Address Phone BALA CLARK Unavailable [address] [phone] [place] [address] GREGORY DUMONT Unavailable [address] [phone] [place] [address] PRISCILA MAGANA MD Emergency Provider [address] [place] [address] PHYSICIAN, NO Primary Care Physician Unavailable Unavailab CLAIR Art Next of Kin [address] [place] [address] MD PRISCILA MAGANA Emergency Provider [address] [place] [address] MD [place] [facility] Primary Care Physician [address] [place] [place] [address] MD CELSA MUNGUIA Emergency Provider [address] [place] [address] MD BARBARA VELAZQUEZ Emergency Provider [address] [place] [address] MD SHI ANAYA Emergency Provider [address] [place] [address] DO ABRAHAM MCCRACKEN Admitting Provider [address] [place] [address] MD HARRISON RICO Emergency Provider [address] [place] [address] MD ALEXA TORRES Emergency Provider [address] [place] [address] MD JASON DUNAWAY Emergency Provider [address] [place] [address] [place] [address] Care Team Providers Name Role Phone Ronnell Diaz MD Primary Care Physician Ronnell Diaz Attending Clinician Unavailable NAHUN KHANNA Attending Clinician Unavailable MAYNOR ROMERO Attending Clinician Unavailable RICH POND Attending Clinician Unavailable Gloria Attending Clinician Unavailable Ronnell Diaz Attending Clinician Unavailable BRENDA MALDONADO Attending Clinician [...] Clinician Unavailable Berenice Attending Clinician Unavailable KIA ONTIVEROS Attending Clinician Unavailable Abraham Mccracken Attending Clinician [...] Clinician Unavailable Orlando_F Admitting Clinician Unavailable Ronnell Diaz Admitting Clinician Unavailable MAYNOR ROMERO Admitting Clinician Unavailable BASILIO DIALLO Admitting Clinician Unavailable ANDREIA_DOREEN Admitting Clinician Unavailable Calvin_A Admitting Clinician Unavailable Abraham Mccracken Admitting Clinician Unavailable Orlando_S Admitting Clinician Unavailable Denny_Chinyere Admitting Clinician Unavailable Payers Payer Name Policy Type Policy Number Effective Date Expiration Date S mon[place] [id number] 2014 (PPO) 00:00:00 [facility] [id number] 2019 [place] 00:00:00 ([place] [id number] [place]) [place] [facility] - [id number] [facility] Problems Condition Condition Condition Status Onset [...] Added automatic ally from request for surgery [id number] Priapism Priapism Disease Active Metho di 8-17 [...] ents Source Name Type Date Date Clinician Sumatrjose manuel Propensi Active GI 2020-07 VOMITING Meth joanna porras ty to Intolerance 15 [facility] adverse 00:00: Hospita reaction 00 l s to drug sumatrip sumatrip Active Unknown Commo n porras porras [facility] - [facility] Imitrex Allergy Active [facility] Family History Family Member Diagnosis Comments Start Date Stop Date Source Natural father Doan's palsy [facility] Natural mother Fibromyalgia [facility] Social History Social Habit Start Date Stop Date Quantity Comments Source Gender identity [facility] Sexual orientation [facility] History of Tobacco Current Smoker [facility] - Use [facility] Alcohol intake 2022-03-03 2022-03-03 Current drinker [facility] dist 00:00:00 00:00:00 of alcohol Hospital (finding) History of Social 2022-03-03 2022-03-[address] function 00:00:00 00:00:00 Hospital Tobacco use and 2022-03-01 2022-03-01 Smokeless [facility] exposure 00:00:00 00:00:00 tobacco non-user Hospital Alcohol Comment 2022-03-01 2022-03-01 EVERY OTHER Methodis t 00:00:00 00:00:00 [facility] Sex Assigned At [birth year] [facility] 00:00:00 00:00:00 Hospital Smoking Status Start Date Stop Date Source Heavy Tobacco Smoker [facility] Current Smoker 2022-05-19 00:00:00 Common Spiri t - [facility] Medications Ordered Filled Start Stop Current [...] times a l mcg/actuati day. on inhaler budesonide- 2021-0 Yes 2{puff} Q.5D [...] mcg/actuati 10 other day. l on inhaler busPIRone 2022-0 Yes 5mg Q.5D [...] day. l on inhaler acetaminoph 2021-0 2021- No [id number] 1{tbl} Q6H Take 1 Methodi en-codeine 03-[address] (TYLENOL 00:00: 04:59 mouth Hospita WITH 00 :00 every 6 l CODEINE #3) (six) 300-30 mg hours as per tablet needed for moderate pain for up to 10 days .acute pain. acetaminoph 2021-0 2021- [place] [id number] 1{tbl} Q6H Take 1 Methodi en-codeine 03-02 [...] to 10 [place] [id number] 1{tbl} Q6H Take 1 Methodi en-codeine 03-[address] (TYLENOL 00:00: 04:59 mouth Hospita WITH 00 :00 every 6 l CODEINE #3) (six) 300-30 mg hours as per tablet needed for moderate pain for up to 10 days [place]. [place] [id number] 1{tbl} Q6H Take 1 Methodi en-codeine 03-02 [...] to 10 [place] [id number] 1{tbl} Q6H Take 1 Methodi en-codeine 03-02 [...] Q6H Take 1 Metho di (ULTRAM) 50 - 08-25 tablet (50 s t mg tablet [...] up to 5 days .acute pain. traMADoL 41955 50mg Q6H Take 1 Metho di (ULTRAM) 50 8-19 08-25 tablet (50 s t mg tablet 00:00: 04:59 mg total) Ho spita 00 :00 by mouth l every 6 (six) hours as needed for moderate pain for up to 5 days .acute pain. traMADoL 89273 50mg Q6H Take 1 Metho di (ULTRAM) 50 8-19 08-25 tablet (50 s t mg tablet 00:00: 04:59 mg total) Ho spita 00 :00 by mouth l every 6 (six) hours as needed for moderate pain for up to 5 days .acute pain. traMADoL 50832 50mg Q6H Take 1 Metho di (ULTRAM) [...] up to 5 days .acute pain. traMADoL 37728 50mg Q6H Take 1 Metho di (ULTRAM) 50 8-19 08-25 tablet (50 s t mg tablet 00:00: 04:59 mg total) Ho spita 00 :00 by mouth l every 6 (six) hours as needed for moderate pain for up to 5 days .acute pain. traMADoL 21049 50mg Q6H Take 1 Metho di (ULTRAM) 50 8-19 08-25 tablet (50 s t mg tablet 00:00: 04:59 mg total) Ho spita 00 :00 by mouth l every 6 (six) hours as needed for moderate pain for up to 5 days .acute pain. traMADoL 92874 50mg Q6H Take 1 Metho di (ULTRAM) 50 8-19 08-25 tablet (50 s t mg tablet 00:00: 04:59 mg total) Ho spita 00 :00 by mouth l every 6 (six) hours as needed for moderate pain for up to 5 days .acute pain. traMADoL 62012 50mg Q6H Take 1 Metho di (ULTRAM) 50 8-19 08-25 tablet (50 s t mg tablet 00:00: 04:59 mg total) Ho spita 00 :00 by mouth l every 6 (six) hours as needed for moderate pain for up to 5 days .acute pain. traMADoL 65674 50mg Q6H Take 1 Metho di (ULTRAM) 50 8-19 08-25 tablet (50 s t mg tablet 00:00: 04:59 mg total) Ho spita 00 :00 by mouth l every 6 (six) hours as needed for moderate pain for up to 5 days .acute pain. traMADoL 50111 50mg Q6H Take 1 Metho di (ULTRAM) [...] up to 5 days .acute pain. traMADoL 95609 50mg Q6H Take 1 Metho di (ULTRAM) [...] 5 days .acute pain. traMADoL 2021- [place] [id number] 50mg Q6H Take 1 Metho di (ULTRAM) 50 8-19 08-25 tablet (50 s t mg tablet 00:00: 04:59 mg total) Ho spita 00 :00 by mouth l every 6 (six) hours as needed for moderate pain for up to 5 days .acute pain. traMADoL 2021- No [id number] 50mg Q6H Take 1 Metho di (ULTRAM) 50 8-19 08-25 tablet (50 s t mg tablet 00:00: 04:59 mg total) Ho spita 00 :00 by mouth l every 6 (six) hours as needed for moderate pain for up to 5 days .acute pain. traMADoL 2021-2021- [place] [id number] 50mg Q6H Take 1 Metho di (ULTRAM) 50 8-19 08-25 tablet (50 s t mg tablet 00:00: 04:59 mg total) Ho spita 00 :00 by mouth l every 6 (six) hours as needed for moderate pain for up to 5 days .acute pain. traMADoL 2021- [place] [id number] 50mg Q6H Take 1 Metho di (ULTRAM) [...] Q6H Take 1 Meth joanna (ADVIL) 600 02-[address] MG tablet 00:00: 00:00 (600 [...] No INJECT ONE Met hodi Maintena 5-18 -17 (1) UNIT st 400 mg 00:00: 00:00 INTO THE Hospit a suspension, 00 :00 MUSCLE l extended ONCE A rel syring MONTH 2021- No INJECT ONE Met hodi Maintena 5-18 -17 (1) UNIT st 400 mg 00:00: 00:00 INTO THE Hospit a suspension, 00 :00 MUSCLE l extended ONCE A rel syring MONTH 2021- No INJECT ONE Met hodi Maintena 5-18 -17 (1) UNIT st 400 mg 00:00: 00:00 [...] Abilify 2021- No INJECT ONE Met della Jalloha 11-2517 (1) UNIT st 400 mg 00:00: 00:00 INTO THE Hospit a suspension, 00 :00 MUSCLE l extended ONCE A rel syring MONTH 2021- No INJECT ONE Met [facility] [place] 5-18 -17 (1) UNIT st 400 mg 00:00: 00:00 INTO THE Hospit a suspension, 00 :00 MUSCLE l extended ONCE A rel syring MONTH 2021- No INJECT ONE Met [facility] [place] 11-2517 (1) UNIT st 400 mg 00:00: 00:00 INTO THE Hospit a suspension, 00 :00 MUSCLE l extended ONCE A rel syring MONTH 2021- No INJECT ONE Met [facility] [place] 11-2517 (1) UNIT st 400 mg 00:00: 00:00 INTO THE Hospit a suspension, 00 :00 MUSCLE l extended ONCE A rel syring MONTH 2021- No INJECT ONE [facility] [place] 11-25 (1) UNIT st 400 mg 00:00: 00:00 INTO THE Hospit a suspension, 00 :00 MUSCLE l extended ONCE A rel syring MONTH 2021- No INJECT ONE [facility] [place] 11-25 (1) UNIT st 400 mg 00:00: [...] Name Td (adult) Td (adult) 2022-11-26 Completed [facility] preservative free preservative free 12:13:00 [facility] PFIZER COVID-19 MRNA 2020-10-16 Completed Meth odist VACCINATION 00:00:00 [facility] PFIZER COVID-19 MRNA 2020-10-16 Completed Meth odist VACCINATION 00:00:00 [facility] PFIZER COVID-19 MRNA 2020-10-16 Completed Meth odist VACCINATION 00:00:00 [facility] PFIZER COVID-19 MRNA 2020-10-16 Completed Meth odist VACCINATION 00:00:00 [facility] PFIZER COVID-19 MRNA 2020-10-16 Completed Meth odist VACCINATION 00:00:00 [facility] COVID-19 MRNA 2020-10-16 Completed Meth odist VACCINATION 00:00:00 [facility] PFIZER COVID-19 MRNA 2020-10-16 Completed Meth odist VACCINATION 00:00:00 [facility] PFIZER COVID-19 MRNA 2020-10-16 Completed Meth odist VACCINATION 00:00:00 [facility] PFIZER COVID-19 MRNA 2020-10-16 Completed Meth odist VACCINATION 00:00:00 [facility] PFIZER COVID-19 MRNA 2020-10-16 Completed Meth odist VACCINATION 00:00:00 [facility] PFIZER COVID-19 MRNA 2020-10-16 Completed Meth odist VACCINATION 00:00:00 [facility] PFIZER COVID-19 MRNA 2020-10-16 Completed Meth odist VACCINATION 00:00:00 [facility] PFIZER COVID-19 MRNA 2020-10-16 Completed Meth odist VACCINATION 00:00:00 [facility] PFIZER COVID-19 MRNA 2020-10-16 Completed Meth odist VACCINATION 00:00:00 [facility] PFIZER COVID-19 MRNA 2020-10-16 Completed Meth odist VACCINATION 00:00:00 [facility] PFIZER COVID-19 MRNA 2020-10-16 Completed Meth odist VACCINATION 00:00:00 [facility] PFIZER COVID-19 MRNA 2020-10-16 Completed Meth odist VACCINATION 00:00:00 [facility] PFIZER COVID-19 MRNA 2020-10-16 Completed Meth odist VACCINATION 00:00:00 [facility] PFIZER COVID-19 MRNA 2020-10-16 Completed Meth odist VACCINATION 00:00:00 [facility] PFIZER COVID-19 MRNA 2020-10-16 Completed Meth odist VACCINATION 00:00:00 [facility] PFIZER COVID-19 MRNA 2020-10-16 Completed Meth odist VACCINATION 00:00:00 [facility] PFIZER COVID-19 MRNA 2020-10-16 Completed Meth odist VACCINATION 00:00:00 [facility] PFIZER COVID-19 MRNA 2020-10-16 Completed Meth odist VACCINATION 00:00:00 [facility] PFIZER COVID-19 MRNA 2020-10-16 Completed Meth odist VACCINATION 00:00:00 [facility] PFIZER COVID-19 MRNA 2020-10-16 Completed Meth odist VACCINATION 00:00:00 [facility] PFIZER COVID-19 MRNA 2020-10-16 Completed Meth odist VACCINATION 00:00:00 [facility] PFIZER COVID-19 MRNA 2020-10-16 Completed Meth odist VACCINATION 00:00:00 [facility] PFIZER COVID-19 MRNA 2020-10-16 Completed [facility] odist VACCINATION 00:00:00 Hospital PFIZER COVID-19 MRNA 2020-10-16 Completed Meth odist VACCINATION 00:00:00 [facility] PFIZER COVID-19 MRNA 2020-10-16 Completed Meth odist VACCINATION 00:00:00 [facility] COVID-19, mRNA, COVID-19, mRNA, 2020-10-16 Completed Adryan ulloa LNP-S, PF, 30 LNP-S, PF, 30 00:00:00 [facility] Group mcg/0.3 mL dose mcg/0.3 mL dose (Pfizer-BioNTech) - (Pfizer-BioNTech) - ML ML PFIZER COVID-19 MRNA 2020-09-25 Completed Meth odist VACCINATION 00:00:00 [facility] PFIZER COVID-19 MRNA 2020-09-25 Completed Meth odist VACCINATION 00:00:00 [facility] PFIZER COVID-19 MRNA 2020-09-25 Completed Meth odist VACCINATION 00:00:00 [facility] PFIZER COVID-19 MRNA 2020-09-25 Completed Meth odist VACCINATION 00:00:00 [facility] PFIZER COVID-19 MRNA 2020-09-25 Completed Meth odist VACCINATION 00:00:00 [facility] PFIZER COVID-19 MRNA 2020-09-25 Completed Meth odist VACCINATION 00:00:00 [facility] PFIZER COVID-19 MRNA 2020-09-25 Completed Meth odist VACCINATION 00:00:00 [facility] PFIZER COVID-19 MRNA 2020-09-25 Completed Meth odist VACCINATION 00:00:00 [facility] PFIZER COVID-19 MRNA 2020-09-25 Completed Meth odist VACCINATION 00:00:00 [facility] PFIZER COVID-19 MRNA 2020-09-25 Completed Meth odist VACCINATION 00:00:00 [facility] PFIZER COVID-19 MRNA 2020-09-25 Completed Meth odist VACCINATION 00:00:00 [facility] PFIZER COVID-19 MRNA 2020-09-25 Completed Meth odist VACCINATION 00:00:00 [facility] PFIZER COVID-19 MRNA 2020-09-25 Completed Meth odist VACCINATION 00:00:00 [facility] PFIZER COVID-19 MRNA 2020-09-25 Completed Meth odist VACCINATION 00:00:00 [facility] PFIZER COVID-19 MRNA 2020-09-25 Completed Meth odist VACCINATION 00:00:00 [facility] PFIZER COVID-19 MRNA 2020-09-25 Completed Meth odist VACCINATION 00:00:00 [facility] PFIZER COVID-19 MRNA 2020-09-25 Completed [facility] odist VACCINATION 00:00:00 Hospital PFIZER COVID-19 MRNA 2020-09-25 Completed Meth odist VACCINATION 00:00:00 [facility] PFIZER COVID-19 MRNA 2020-09-25 Completed Meth odist VACCINATION 00:00:00 [facility] PFIZER COVID-19 MRNA 2020-09-25 Completed Meth odist VACCINATION 00:00:00 [facility] PFIZER COVID-19 MRNA 2020-09-25 Completed Meth odist VACCINATION 00:00:00 [facility] PFIZER COVID-19 MRNA 2020-09-25 Completed Meth odist VACCINATION 00:00:00 [facility] PFIZER COVID-19 MRNA 2020-09-25 Completed Meth odist VACCINATION 00:00:00 [facility] PFIZER COVID-19 MRNA 2020-09-25 Completed Meth odist VACCINATION 00:00:00 [facility] PFIZER COVID-19 MRNA 2020-09-25 Completed Meth odist VACCINATION 00:00:00 [facility] PFIZER COVID-19 MRNA 2020-09-25 Completed Meth odist VACCINATION 00:00:00 [facility] PFIZER COVID-19 MRNA 2020-09-25 Completed Meth odist VACCINATION 00:00:00 [facility] PFIZER COVID-19 MRNA 2020-09-25 Completed Meth odist VACCINATION 00:00:00 [facility] PFIZER COVID-19 MRNA 2020-09-25 Completed Meth odist VACCINATION 00:00:00 [facility] PFIZER COVID-19 MRNA 2020-09-25 Completed Meth odist VACCINATION 00:00:00 [facility] COVID-19, mRNA, COVID-19, mRNA, 2020-09-25 Completed Cornelius laila LNP-S, PF, 30 LNP-S, PF, 30 00:00:00 [facility] Group mcg/0.3 mL dose mcg/0.3 mL dose (Pfizer-BioNTech) - (Pfizer-BioNTech) - ML ML influenza, influenza, 2018-05-11 Completed [facility] injectable, injectable, 00:00:00 [facility] p quadrivalent, quadrivalent, preservative free - preservative free - ML ML influenza, seasonal, influenza, 2017-06-27 Completed Cornelius laila injectable, seasonal, 00:00:00 [facility] preservative free - injectable, ML preservative free - ML DTaP, unspecified DTaP, unspecified 1998-10-20 Completed [facility] formulation - ML formulation - ML 00:00:00 [facility] Group Hib (PRP-T) - ML Hib (PRP-T) - ML 1998-10-20 Completed [facility] [place] 00:00:[facility] varicella - ML varicella - ML 1998-07-10 Completed [facility] [employer] 00:00:00 [facility] MMR - ML MMR - ML 1998-07-10 Completed [facility] 00:[facility] DTaP, unspecified DTaP, unspecified 1997 Completed [facility] formulation - ML formulation - ML 00:00:00 Me [facility] Group Hep B, adolescent or Hep B, adolescent 1997 Completed [facility] pediatric - ML or pediatric - ML 00:00:00 Med ical Group OPV - ML OPV - ML 1997 Completed [facility] 00:00:[facility] Hib, unspecified Hib, unspecified 1997 Completed [place] formulation - ML formulation - ML 00:00:00 Oh d[facility] Group DTaP, unspecified DTaP, unspecified 1997 Completed [facility] formulation - ML formulation - ML 00:00:00 Oh [facility] Group OPV - ML OPV - ML 1997 Completed [facility] 00:00:[facility] Hib, unspecified Hib, unspecified 1997 Completed [place] formulation - ML formulation - ML 00:00:00 Oh [facility] Group DTaP, unspecified DTaP, unspecified 1997 Completed [facility] formulation - ML formulation - ML 00:00:00 Oh [facility] Group OPV - ML OPV - ML 1997 Completed [facility] 00:00:[facility] Hib, unspecified Hib, unspecified 1997 Completed [place] formulation - ML formulation - ML 00:00:00 Oh dical Group Hep B, adolescent or Hep B, adolescent 1997 Completed [facility] - ML or pediatric - ML 00:00:00 Med ical Group Hep B, adolescent or Hep B, adolescent 1997 Completed [facility] - ML or pediatric - ML 00:00:00 Med [facility] Group Vital Signs Vital Name Observation Time Observation Value Comments Source BP Diastolic 2022-11-25 00:00:00 82 mm[Hg] [facility] Height 2022-11-25 00:00:00 71 [in_i] [facility] BMI (Body Mass 2022-11-25 00:00:00 31.7 kg/m2 [facility]) Group BP Systolic 2022-11-25 00:00:00 128 mm[Hg] [facility] Body Weight 2022-11-25 00:00:00 3632 [oz_av] [facility] BP Diastolic 2022-11-17 00:00:00 68 mm[Hg] [facility] Height 2022-11-17 00:00:00 71 [in_i] [facility] BMI (Body Mass 2022-11-17 00:00:00 32 kg/m2 [facility]) Group BP Systolic 2022-11-17 00:00:00 105 mm[Hg] [facility] Body Weight 2022-11-17 00:00:00 3673 [oz_av] [facility] BP Diastolic 2022-06-25 00:00:00 84 mm[Hg] [facility] Height 2022-06-25 00:00:00 71 [in_i] [facility] BMI (Body Mass 2022-06-25 00:00:00 33.5 kg/m2 [facility]) Group BP Systolic 2022-06-25 00:00:00 133 mm[Hg] [facility] Body Weight 2022-06-25 00:00:00 3848 [oz_av] [facility] BP Diastolic 2022-06-21 00:00:00 73 mm[Hg] [facility] Height 2022-06-21 00:00:00 71 [in_i] [facility] BMI (Body Mass 2022-06-21 00:00:00 34.4 kg/m2 [facility]) Group BP Systolic 2022-06-21 00:00:00 112 mm[Hg] [facility] Body Weight 2022-06-21 00:00:00 3942 [oz_av] [facility] height 2022-05-19 10:30:00 71 [in_i] [facility] weight 2022-05-19 10:30:00 254.6 [lb_av] [facility] temperature 2022-05-19 10:30:00 97.6 [degF] [facility] bmi 2022-05-19 10:30:00 35.51 kg/m2 [facility] oximetry 2022-05-19 10:30:00 98 % [facility] respiratory rate 2022-05-19 10:30:00 18 /min [facility] blood pressure 2022-05-19 10:30:00 35 mm[Hg] [facility] - systolic [facility] blood pressure 2022-05-19 10:30:00 78 mm[Hg] [facility] - diastolic [facility] BP Diastolic 2022-03-09 00:00:00 77 mm[Hg] [facility] Height 2022-03-09 00:00:00 71 [in_i] [facility] BMI (Body Mass 2022-03-09 00:00:00 35.6 kg/m2 [facility]) Group BP Systolic 2022-03-09 00:00:00 122 mm[Hg] [facility] Body Weight 2022-03-09 00:00:00 4078.4 [oz_av] [facility] BP Diastolic 2021-11-06 00:00:00 83 mm[Hg] [facility] Height 2021-11-06 00:00:00 71 [in_i] [facility] BMI (Body Mass 2021-11-06 00:00:00 35 kg/m2 [facility]) Group BP Systolic 2021-11-06 00:00:00 127 mm[Hg] [facility] Body Weight 2021-11-06 00:00:00 4020 [oz_av] [facility] Height 2021-09-14 00:00:00 71 [in_i] [facility] BMI (Body Mass 2021-09-14 00:00:00 34.6 kg/m2 [facility] Group Body Weight 2021-09-14 00:00:00 3968 [oz_av] [facility] BP Diastolic 2021-03-26 00:00:00 75 mm[Hg] [facility] Height 2021-03-26 00:00:00 71 [in_i] [facility] BMI (Body Mass 2021-03-26 00:00:00 31.1 kg/m2 [facility] Group BP Systolic 2021-03-26 00:00:00 118 mm[Hg] [facility] Body Weight 2021-03-26 00:00:00 3569 [oz_av] [facility] BP Diastolic 2021-03-10 00:00:00 69 mm[Hg] [facility] Height 2021-03-10 00:00:00 71 [in_i] [facility] BMI (Body Mass 2021-03-10 00:00:00 30.8 kg/m2 [facility] Group BP Systolic 2021-03-10 00:00:00 111 mm[Hg] [facility] Body Weight 2021-03-10 00:00:00 3529 [oz_av] [facility] BP Diastolic 2021-01-02 00:00:00 63 mm[Hg] [facility] Height 2021-01-02 00:00:00 71 [in_i] [facility] BMI (Body Mass 2021-01-02 00:00:00 30.3 kg/m2 [facility] Group BP Systolic 2021-01-02 00:00:00 112 mm[Hg] [facility] Body Weight 2021-01-02 00:00:00 3481 [oz_av] [facility] BP Diastolic 2020-07-15 00:00:00 71 mm[Hg] [facility] Height 2020-07-15 00:00:00 71 [in_i] [facility] BMI (Body Mass 2020-07-15 00:00:00 29.7 kg/m2 [facility] Group BP Systolic 2020-07-15 00:00:00 117 mm[Hg] [facility] Body Weight 2020-07-15 00:00:00 213 [lb_av] [facility] BP Diastolic 2020-07-14 00:00:00 71 mm[Hg] [facility] Height 2020-07-14 00:00:00 71 [in_i] [facility] BMI (Body Mass 2020-07-14 00:00:00 29.7 kg/m2 [facility] Group BP Systolic 2020-07-14 00:00:00 117 mm[Hg] [facility] Body Weight 2020-07-14 00:00:00 3411 [oz_av] [facility] Height 2020-01-30 00:00:00 71 [in_i] [facility] BMI (Body Mass 2020-01-30 00:00:00 30 kg/m2 [facility] Group Body Weight 2020-01-30 00:00:00 3440 [oz_av] [facility] Systolic blood 2022-03-02 15:38:00 114 mm[Hg] [facility] pressure Diastolic blood 2022-03-02 15:38:00 67 mm[Hg] [facility] pressure Heart rate 2022-03-02 15:38:00 63 /min [facility] Respiratory rate 2022-03-02 15:38:00 16 /min [facility] Oxygen saturation in 2022-03-02 15:38:00 97 /min [facility] Arterial blood by Pulse oximetry Body temperature 2022-03-02 15:30:00 36.33 Elle [facility] Body height 2022-03-01 15:26:00 180.3 cm [facility] Body weight 2022-03-01 15:26:00 115.123 kg [facility] BMI 2022-03-01 15:26:00 35.40 kg/m2 [facility] Procedures Procedure Date / Time Performing Clinician Source Performed US, scrotum 2022-11-17 00:00:00 [facility] dical Group US, duplex, penis, 2022-03-09 00:00:00 [facility] [place] < 1 HOUR 2022-03-02 18:31:17 [facility] Rom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 2022-03-02 13:31:57 Alfreda Duvall [facility] SPINAE [place] AN ELECTIVE 2022-03-02 12:35:00 Mason Douglas [facility] ENDOTRACHEAL AIRWAY LAMINECTOMY, LUMBAR 2022-03-02 12:29:00 Maynor Romero [facility] POC GLUCOSE 2022-03-02 11:43:00 Maynor Romero [facility] Back Surgery 2022-03-02 00:00:00 [facility] dical [facility] XR CHEST 2 VW 2022-03-01 17:28:02 Maynor Romero [facility] ECG PRE/POST OP 2022-03-01 16:38:21 Maynor Romero [facility] HEMOGLOBIN A1C 2022-03-01 16:18:00 [facility]-19 QUALITATIVE 2022-03-01 15:48:00 [facility] RT-PCR CBC WITH PLATELET AND 2022-03-01 15:48:00 Maynor Romero [facility] DIFFERENTIAL PARTIAL THROMBOPLASTIN 2022-03-01 15:48:00 SallisMaynor [facility] TIME (PTT) PROTHROMBIN TIME WITH INR 2022-03-01 15:48:00 Maynor Romero [facility] CT POST MYELOGRAM LUMBAR 2022-02-25 18:14:57 [facility] IR MYELOGRAM LUMB INCL 2022-02-25 17:55:00 [facility] INJ W S&I COVID-19 QUALITATIVE 2022-02-24 22:40:00 [facility] RT-PCR COMPREHENSIVE METABOLIC 2022-02-24 22:40:00 [facility] PANEL CBC WITH PLATELET AND 2022-02-24 22:40:00 [facility] DIFFERENTIAL TROPONIN T 2022-02-24 22:40:00 [facility] B NATRIURETIC PEPTIDE 2022-02-24 22:40:00 [facility] ESTIMATED GFR 2022-02-24 22:40:00 [facility] GENERAL 2022-02-24 22:27:14 [facility] CT SPINE EXTERNAL STUDY 2022-02-12 16:40:33 Maynor Romero [facility] XR ABDOMEN 2 VW AP W 2021-12-18 16:48:33 Maynor Romero [facility] UPRIGHT AND/OR DECUBITUS XR LUMBAR SPINE COMPLETE 2021-12-18 15:33:23 Maynor Romero [facility] W BENDING XR SPINE EXTERNAL STUDY 2021-08-10 17:26:30 Maynor Romero [facility] XR, lumbar spine 2021-03-10 00:00:00 [facility] Plan of Care Planned Activity Planned Date Details Comments Source Future Scheduled Test 2022-12-27 Pneumococcal Vaccine: [facility] 14:16:08 Pediatrics (0 to 5 Years) and At-Risk Patients (6 to 64 Years) (1 - PCV) [code = Pneumococcal Vaccine: Pediatrics (0 to 5 Years) and At-Risk Patients (6 to 64 Years) (1 - PCV)] Future Scheduled Test 2022-12-27 Hepatitis C screening [facility] 14:16:08 (procedure) [code = [id number]] Future Scheduled Test 2022-12-27 COVID-19 VACCINE (3 - [facility] 14:16:08 Pfizer series) [code = COVID-19 VACCINE (3 - Pfizer series)] Future Scheduled Test 2022-12-27 INFLUENZA VACCINE [facility] 14:16:08 [code = INFLUENZA VACCINE] Future Scheduled Test 2022-12-27 Pneumococcal Vaccine: [facility] 14:16:08 Pediatrics (0 to 5 Years) and At-Risk Patients (6 to 64 Years) (1 - PCV) [code = Pneumococcal Vaccine: Pediatrics (0 to 5 Years) and At-Risk Patients (6 to 64 Years) (1 - PCV)] Future Scheduled Test 2022-12-27 Hepatitis C screening [facility] 14:16:08 (procedure) [code = [id number]] Future Scheduled Test 2022-12-27 COVID-19 VACCINE ([address] [place] [address] 14:16:08 Pfizer series) [code = COVID-19 VACCINE (3 - Pfizer series)] Future Scheduled Test 2022-12-27 INFLUENZA VACCINE [facility] 14:16:08 [code = INFLUENZA VACCINE] Diagnostic Test [...] Diagnostic Test 2022-11-17 lipid panel, serum [employer] [facility] Pending 00:00:00 [code = lipid panel, Group serum] Future Scheduled Test 2022-10-26 Pneumococcal Vaccine: [facility] 12:10:59 Pediatrics (0 to 5 Years) and At-Risk Patients (6 to 64 Years) (1 - PCV) [code = Pneumococcal Vaccine: Pediatrics (0 to 5 Years) and At-Risk Patients (6 to 64 Years) (1 - PCV)] Future Scheduled Test 2022-10-26 Hepatitis C screening [facility] 12:10:59 (procedure) [code = [id number]] Future Scheduled Test 2022-10-26 COVID-19 VACCINE ([address] [place] [address] 12:10:59 Booster for Pfizer series) [code = COVID-19 VACCINE (3 - Booster for Pfizer series)] Future Scheduled Test 2022-10-26 INFLUENZA VACCINE [facility] 12:10:59 [code = INFLUENZA VACCINE] Future Scheduled Test 2022-10-26 Pneumococcal Vaccine: [facility] 12:10:59 Pediatrics (0 to 5 Years) and At-Risk Patients (6 to 64 Years) (1 - PCV) [code = Pneumococcal Vaccine: Pediatrics (0 to 5 Years) and At-Risk Patients (6 to 64 Years) (1 - PCV)] Future Scheduled Test 2022-10-26 Hepatitis C screening [facility] 12:10:59 (procedure) [code = [id number]] Future Scheduled Test 2022-10-26 COVID-19 VACCINE ([address] [place] [address] 12:10:59 Booster for Pfizer series) [code = COVID-19 VACCINE (3 - Booster for Pfizer series)] Future Scheduled Test 2022-10-26 INFLUENZA VACCINE [facility] 12:10:59 [code = INFLUENZA VACCINE] Future Scheduled Test 2022-10-26 Pneumococcal Vaccine: [facility] 12:10:59 Pediatrics (0 to 5 Years) and At-Risk Patients (6 to 64 Years) (1 - PCV) [code = Pneumococcal Vaccine: Pediatrics (0 to 5 Years) and At-Risk Patients (6 to 64 Years) (1 - PCV)] Future Scheduled Test 2022-10-26 Hepatitis C screening [facility] 12:10:59 (procedure) [code = [id number]] Future Scheduled Test 2022-10-26 COVID-19 VACCINE ([address] [place] [address] 12:10:59 Booster for Pfizer series) [code = COVID-19 VACCINE (3 - Booster for Pfizer series)] Future Scheduled Test 2022-10-26 INFLUENZA VACCINE [facility] 12:10:59 [code = INFLUENZA VACCINE] Future Scheduled Test 2022-10-26 Pneumococcal Vaccine: [facility] 12:10:59 Pediatrics (0 to 5 Years) and At-Risk Patients (6 to 64 Years) (1 - PCV) [code = Pneumococcal Vaccine: Pediatrics (0 to 5 Years) and At-Risk Patients (6 to 64 Years) (1 - PCV)] Future Scheduled Test 2022-10-26 Hepatitis C screening [facility] 12:10:59 (procedure) [code = [id number]] Future Scheduled Test 2022-10-26 COVID-19 VACCINE ([address] [place] [address] 12:10:59 Booster for Pfizer series) [code = COVID-19 VACCINE (3 - Booster for Pfizer series)] Future Scheduled Test 2022-10-26 INFLUENZA VACCINE [facility] 12:10:59 [code = INFLUENZA VACCINE] Future Scheduled Test 2022-10-12 Pneumococcal Vaccine: [facility] 03:52:45 Pediatrics (0 to 5 Years) and At-Risk Patients (6 to 64 Years) (1 - PCV) [code = Pneumococcal Vaccine: Pediatrics (0 to 5 Years) and At-Risk Patients (6 to 64 Years) (1 - PCV)] Future Scheduled Test 2022-10-12 Hepatitis C screening [facility] 03:52:45 (procedure) [code = [id number]] Future Scheduled Test 2022-10-12 COVID-19 VACCINE ([address] [place] [address] 03:52:45 Booster for Pfizer series) [code = COVID-19 VACCINE (3 - Booster for Pfizer series)] Future Scheduled Test 2022-10-12 INFLUENZA VACCINE [facility] 03:52:45 [code = INFLUENZA VACCINE] Future Scheduled Test 2022-10-12 Pneumococcal Vaccine: [facility] 03:52:45 Pediatrics (0 to 5 Years) and At-Risk Patients (6 to 64 Years) (1 - PCV) [code = Pneumococcal Vaccine: Pediatrics (0 to 5 Years) and At-Risk Patients (6 to 64 Years) (1 - PCV)] Future Scheduled Test 2022-10-12 Hepatitis C screening [facility] 03:52:45 (procedure) [code = [id number]] Future Scheduled Test 2022-10-12 COVID-19 VACCINE ([address] [place] [address] 03:52:45 Booster for Pfizer series) [code = COVID-19 VACCINE (3 - Booster for Pfizer series)] Future Scheduled Test 2022-10-12 INFLUENZA VACCINE [facility] 03:52:45 [code = INFLUENZA VACCINE] Future Scheduled Test 2022-10-12 Pneumococcal Vaccine: [facility] 03:52:45 Pediatrics (0 to 5 Years) and At-Risk Patients (6 to 64 Years) (1 - PCV) [code = Pneumococcal Vaccine: Pediatrics (0 to 5 Years) and At-Risk Patients (6 to 64 Years) (1 - PCV)] Future Scheduled Test 2022-10-12 Hepatitis C screening [facility] 03:52:45 (procedure) [code = [id number]] Future Scheduled Test 2022-10-12 COVID-19 VACCINE ([address] [place] [address] 03:52:45 Booster for Pfizer series) [code = COVID-19 VACCINE (3 - Booster for Pfizer series)] Future Scheduled Test 2022-10-12 INFLUENZA VACCINE [facility] 03:52:45 [code = INFLUENZA VACCINE] Future Scheduled Test 2022-09-07 Pneumococcal Vaccine: [facility] 19:21:49 Pediatrics (0 to 5 Years) and At-Risk Patients (6 to 64 Years) (1 - PCV) [code = Pneumococcal Vaccine: Pediatrics (0 to 5 Years) and At-Risk Patients (6 to 64 Years) (1 - PCV)] Future Scheduled Test 2022-09-07 Hepatitis C screening [facility] 19:21:49 (procedure) [code = [id number]] Future Scheduled Test 2022-09-07 COVID-19 VACCINE ([address] [place] [address] 19:21:49 Booster for Pfizer series) [code = COVID-19 VACCINE (3 - Booster for Pfizer series)] Future Scheduled Test 2022-09-07 INFLUENZA VACCINE [facility] 19:21:49 [code = INFLUENZA VACCINE] Future Scheduled Test 2022-09-07 Pneumococcal Vaccine: [facility] 19:21:49 Pediatrics (0 to 5 Years) and At-Risk Patients (6 to 64 Years) (1 - PCV) [code = Pneumococcal Vaccine: Pediatrics (0 to 5 Years) and At-Risk Patients (6 to 64 Years) (1 - PCV)] Future Scheduled Test 2022-09-07 Hepatitis C screening [facility] 19:21:49 (procedure) [code = [id number]] Future Scheduled Test 2022-09-07 COVID-19 VACCINE ([address] [place] [address] 19:21:49 Booster for Pfizer series) [code = COVID-19 VACCINE (3 - Booster for Pfizer series)] Future Scheduled Test 2022-09-07 INFLUENZA VACCINE [facility] 19:21:49 [code = INFLUENZA VACCINE] Future Scheduled Test 2022-09-07 Pneumococcal Vaccine: [facility] 19:21:49 Pediatrics (0 to 5 Years) and At-Risk Patients (6 to 64 Years) (1 - PCV) [code = Pneumococcal Vaccine: Pediatrics (0 to 5 Years) and At-Risk Patients (6 to 64 Years) (1 - PCV)] Future Scheduled Test 2022-09-07 Hepatitis C screening [facility] 19:21:49 (procedure) [code = [id number]] Future Scheduled Test 2022-09-07 COVID-19 VACCINE ([address] [place] [address] 19:21:49 Booster for Pfizer series) [code = COVID-19 VACCINE (3 - Booster for Pfizer series)] Future Scheduled Test 2022-09-07 INFLUENZA VACCINE [facility] 19:21:49 [code = INFLUENZA VACCINE] Future Scheduled Test 2022-09-07 Pneumococcal Vaccine: [facility] 19:21:49 Pediatrics (0 to 5 Years) and At-Risk Patients (6 to 64 Years) (1 - PCV) [code = Pneumococcal Vaccine: Pediatrics (0 to 5 Years) and At-Risk Patients (6 to 64 Years) (1 - PCV)] Future Scheduled Test 2022-09-07 Hepatitis C screening [facility] 19:21:49 (procedure) [code = [id number]] Future Scheduled Test 2022-09-07 COVID-19 VACCINE ([address] [place] [address] 19:21:49 Booster for Pfizer series) [code = COVID-19 VACCINE (3 - Booster for Pfizer series)] Future Scheduled Test 2022-09-07 INFLUENZA VACCINE [facility] 19:21:49 [code = INFLUENZA VACCINE] Future Scheduled Test 2022-06-26 Pneumococcal Vaccine: [facility] 18:09:46 Pediatrics (0 to 5 Years) and At-Risk Patients (6 to 64 Years) (1 - PCV) [code = Pneumococcal Vaccine: Pediatrics (0 to 5 Years) and At-Risk Patients (6 to 64 Years) (1 - PCV)] Future Scheduled Test 2022-06-26 Hepatitis C screening [facility] 18:09:46 (procedure) [code = [id number]] Future Scheduled Test 2022-06-26 COVID-19 VACCINE ([address] [place] [address] 18:09:46 Booster for Pfizer series) [code = COVID-19 VACCINE (3 - Booster for Pfizer series)] Future Scheduled Test 2022-06-26 INFLUENZA VACCINE [facility] 18:09:46 [code = INFLUENZA VACCINE] Future Scheduled Test 2022-06-26 Pneumococcal Vaccine: [facility] 18:09:46 Pediatrics (0 to 5 Years) and At-Risk Patients (6 to 64 Years) (1 - PCV) [code = Pneumococcal Vaccine: Pediatrics (0 to 5 Years) and At-Risk Patients (6 to 64 Years) (1 - PCV)] Future Scheduled Test 2022-06-26 Hepatitis C screening [facility] 18:09:46 (procedure) [code = [id number]] Future Scheduled Test 2022-06-26 COVID-19 VACCINE ([address] [place] [address] 18:09:46 Booster for Pfizer series) [code = COVID-19 VACCINE (3 - Booster for Pfizer series)] Future Scheduled Test 2022-06-26 INFLUENZA VACCINE [facility] 18:09:46 [code = INFLUENZA VACCINE] Future Scheduled Test 2022-05-20 Pneumococcal Vaccine: [facility] 09:23:23 Pediatrics (0 to 5 Years) and At-Risk Patients (6 to 64 Years) (1 - PCV) [code = Pneumococcal Vaccine: Pediatrics (0 to 5 Years) and At-Risk Patients (6 to 64 Years) (1 - PCV)] Future Scheduled Test 2022-05-20 Hepatitis C screening [facility] 09:23:23 (procedure) [code = [id number]] Future Scheduled Test 2022-05-20 COVID-19 VACCINE ([address] [place] [address] 09:23:23 Booster for Pfizer series) [code = COVID-19 VACCINE (3 - Booster for Pfizer series)] Future Scheduled Test 2022-05-20 INFLUENZA VACCINE [facility] 09:23:23 [code = INFLUENZA VACCINE] Future Scheduled Test 2022-05-20 Pneumococcal Vaccine: [facility] 09:23:23 Pediatrics (0 to 5 Years) and At-Risk Patients (6 to 64 Years) (1 - PCV) [code = Pneumococcal Vaccine: Pediatrics (0 to 5 Years) and At-Risk Patients (6 to 64 Years) (1 - PCV)] Future Scheduled Test 2022-05-20 Hepatitis C screening [facility] 09:23:23 (procedure) [code = [id number]] Future Scheduled Test 2022-05-20 COVID-19 VACCINE ([address] [place] [address] 09:23:23 Booster for Pfizer series) [code = COVID-19 VACCINE (3 - Booster for Pfizer series)] Future Scheduled Test 2022-05-20 INFLUENZA VACCINE [facility] 09:23:23 [code = INFLUENZA VACCINE] Future Scheduled Test 2022-05-20 Pneumococcal Vaccine: [facility] 09:23:23 Pediatrics (0 to 5 Years) and At-Risk Patients (6 to 64 Years) (1 - PCV) [code = Pneumococcal Vaccine: Pediatrics (0 to 5 Years) and At-Risk Patients (6 to 64 Years) (1 - PCV)] Future Scheduled Test 2022-05-20 Hepatitis C screening [facility] 09:23:23 (procedure) [code = [id number]] Future Scheduled Test 2022-05-20 COVID-19 VACCINE ([address] [place] [address] 09:23:23 Booster for Pfizer series) [code = COVID-19 VACCINE (3 - Booster for Pfizer series)] Future Scheduled Test 2022-05-20 INFLUENZA VACCINE [facility] 09:23:23 [code = INFLUENZA VACCINE] Future Scheduled Test 2022-05-20 Pneumococcal Vaccine: [facility] 09:23:23 Pediatrics (0 to 5 Years) and At-Risk Patients (6 to 64 Years) (1 - PCV) [code = Pneumococcal Vaccine: Pediatrics (0 to 5 Years) and At-Risk Patients (6 to 64 Years) (1 - PCV)] Future Scheduled Test 2022-05-20 Hepatitis C screening [facility] 09:23:23 (procedure) [code = [id number]] Future Scheduled Test 2022-05-20 COVID-19 VACCINE ([address] [place] [address] 09:23:23 Booster for Pfizer series) [code = COVID-19 VACCINE (3 - Booster for Pfizer series)] Future Scheduled Test 2022-05-20 INFLUENZA VACCINE [facility] 09:23:23 [code = INFLUENZA VACCINE] Future Scheduled Test 2022-05-20 Pneumococcal Vaccine: [facility] 09:23:23 Pediatrics (0 to 5 Years) and At-Risk Patients (6 to 64 Years) (1 - PCV) [code = Pneumococcal Vaccine: Pediatrics (0 to 5 Years) and At-Risk Patients (6 to 64 Years) (1 - PCV)] Future Scheduled Test 2022-05-20 Hepatitis C screening [facility] 09:23:23 (procedure) [code = [id number]] Future Scheduled Test 2022-05-20 COVID-19 VACCINE ([address] [place] [address] 09:23:23 Booster for Pfizer series) [code = COVID-19 VACCINE (3 - Booster for Pfizer series)] Future Scheduled Test 2022-05-20 INFLUENZA VACCINE [facility] 09:23:23 [code = INFLUENZA VACCINE] Future Scheduled Test 2022-05-20 Pneumococcal Vaccine: [facility] 09:23:23 Pediatrics (0 to 5 Years) and At-Risk Patients (6 to 64 Years) (1 - PCV) [code = Pneumococcal Vaccine: Pediatrics (0 to 5 Years) and At-Risk Patients (6 to 64 Years) (1 - PCV)] Future Scheduled Test 2022-05-20 Hepatitis C screening [facility] 09:23:23 (procedure) [code = [id number]] Future Scheduled Test 2022-05-20 COVID-19 VACCINE ([address] [place] [address] 09:23:23 Booster for Pfizer series) [code = COVID-19 VACCINE (3 - Booster for Pfizer series)] Future Scheduled Test 2022-05-20 INFLUENZA VACCINE [facility] 09:23:23 [code = INFLUENZA VACCINE] Future Scheduled Test 2022-05-11 Pneumococcal Vaccine: [facility] 07:01:06 Pediatrics (0 to 5 Years) and At-Risk Patients (6 to 64 Years) (1 - PCV) [code = Pneumococcal Vaccine: Pediatrics (0 to 5 Years) and At-Risk Patients (6 to 64 Years) (1 - PCV)] Future Scheduled Test 2022-05-11 Hepatitis C screening [facility] 07:01:06 (procedure) [code = [id number]] Future Scheduled Test 2022-05-11 COVID-19 VACCINE ([address] [place] [address] 07:01:06 Booster for Pfizer series) [code = COVID-19 VACCINE (3 - Booster for Pfizer series)] Future Scheduled Test 2022-05-11 INFLUENZA VACCINE [facility] 07:01:06 [code = INFLUENZA VACCINE] Future Scheduled Test 2022-05-11 Pneumococcal Vaccine: [facility] 07:01:06 Pediatrics (0 to 5 Years) and At-Risk Patients (6 to 64 Years) (1 - PCV) [code = Pneumococcal Vaccine: Pediatrics (0 to 5 Years) and At-Risk Patients (6 to 64 Years) (1 - PCV)] Future Scheduled Test 2022-05-11 Hepatitis C screening [facility] 07:01:06 (procedure) [code = [id number]] Future Scheduled Test 2022-05-11 COVID-19 VACCINE ([address] [place] [address] 07:01:06 Booster for Pfizer series) [code = COVID-19 VACCINE (3 - Booster for Pfizer series)] Future Scheduled Test 2022-05-11 INFLUENZA VACCINE [facility] 07:01:06 [code = INFLUENZA VACCINE] Future Scheduled Test 2022-04-23 Pneumococcal Vaccine: [facility] 15:05:55 Pediatrics (0 to 5 Years) and At-Risk Patients (6 to 64 Years) (1 - PCV) [code = Pneumococcal Vaccine: Pediatrics (0 to 5 Years) and At-Risk Patients (6 to 64 Years) (1 - PCV)] Future Scheduled Test 2022-04-23 Hepatitis C screening [facility] 15:05:55 (procedure) [code = [id number]] Future Scheduled Test 2022-04-23 COVID-19 VACCINE ([address] [place] [address] 15:05:55 Booster for Pfizer series) [code = COVID-19 VACCINE (3 - Booster for Pfizer series)] Future Scheduled Test 2022-04-23 INFLUENZA VACCINE [facility] 15:05:55 [code = INFLUENZA VACCINE] Future Scheduled Test 2022-03-19 Pneumococcal Vaccine: [facility] 14:05:17 Pediatrics (0 to 5 Years) and At-Risk Patients (6 to 64 Years) (1 - PCV) [code = Pneumococcal Vaccine: Pediatrics (0 to 5 Years) and At-Risk Patients (6 to 64 Years) (1 - PCV)] Future Scheduled Test 2022-03-19 Hepatitis C screening [facility] 14:05:17 (procedure) [code = [id number]] Future Scheduled Test 2022-03-19 COVID-19 VACCINE ([address] [place] [address] 14:05:17 Booster for Pfizer series) [code = COVID-19 VACCINE (3 - Booster for Pfizer series)] Future Scheduled Test 2022-03-19 INFLUENZA VACCINE [facility] 14:05:17 [code = INFLUENZA VACCINE] Future Scheduled Test 2022-03-19 Pneumococcal Vaccine: [facility] 14:05:17 Pediatrics (0 to 5 Years) and At-Risk Patients (6 to 64 Years) (1 - PCV) [code = Pneumococcal Vaccine: Pediatrics (0 to 5 Years) and At-Risk Patients (6 to 64 Years) (1 - PCV)] Future Scheduled Test 2022-03-19 Hepatitis C screening [facility] 14:05:17 (procedure) [code = [id number]] Future Scheduled Test 2022-03-19 COVID-19 VACCINE ([address] [place] [address] 14:05:17 Booster for Pfizer series) [code = COVID-19 VACCINE (3 - Booster for Pfizer series)] Future Scheduled Test 2022-03-19 INFLUENZA VACCINE [facility] 14:05:17 [code = INFLUENZA VACCINE] Future Scheduled Test 2022-03-06 Pneumococcal Vaccine: [facility] 19:05:17 Pediatrics (0 to 5 Years) and At-Risk Patients (6 to 64 Years) (1 - PCV) [code = Pneumococcal Vaccine: Pediatrics (0 to 5 Years) and At-Risk Patients (6 to 64 Years) (1 - PCV)] Future Scheduled Test 2022-03-06 Hepatitis C screening [facility] 19:05:17 (procedure) [code = [id number]] Future Scheduled Test 2022-03-06 COVID-19 VACCINE ([address] [place] [address] 19:05:17 Booster for Pfizer series) [code = COVID-19 VACCINE (3 - Booster for Pfizer series)] Future Scheduled Test 2022-03-06 INFLUENZA VACCINE [facility] 19:05:17 [code = INFLUENZA VACCINE] Future Scheduled Test 2022-03-06 Pneumococcal Vaccine: [facility] 19:05:17 Pediatrics (0 to 5 Years) and At-Risk Patients (6 to 64 Years) (1 - PCV) [code = Pneumococcal Vaccine: Pediatrics (0 to 5 Years) and At-Risk Patients (6 to 64 Years) (1 - PCV)] Future Scheduled Test 2022-03-06 Hepatitis C screening [facility] 19:05:17 (procedure) [code = [id number]] Future Scheduled Test 2022-03-06 COVID-19 VACCINE ([address] [place] [address] 19:05:17 Booster for Pfizer series) [code = COVID-19 VACCINE (3 - Booster for Pfizer series)] Future Scheduled Test 2022-03-06 INFLUENZA VACCINE [facility] 19:05:17 [code = INFLUENZA VACCINE] Future Scheduled Test 2022-03-06 Pneumococcal Vaccine: [facility] 19:05:17 Pediatrics (0 to 5 Years) and At-Risk Patients (6 to 64 Years) (1 - PCV) [code = Pneumococcal Vaccine: Pediatrics (0 to 5 Years) and At-Risk Patients (6 to 64 Years) (1 - PCV)] Future Scheduled Test 2022-03-06 Hepatitis C screening [facility] 19:05:17 (procedure) [code = [id number]] Future Scheduled Test 2022-03-06 COVID-19 VACCINE ([address] [place] [address] 19:05:17 Booster for Pfizer series) [code = COVID-19 VACCINE (3 - Booster for Pfizer series)] Future Scheduled Test 2022-03-06 INFLUENZA VACCINE [facility] 19:05:17 [code = INFLUENZA VACCINE] Future Scheduled Test 2022-03-06 Pneumococcal Vaccine: [facility] 19:05:17 Pediatrics (0 to 5 Years) and At-Risk Patients (6 to 64 Years) (1 - PCV) [code = Pneumococcal Vaccine: Pediatrics (0 to 5 Years) and At-Risk Patients (6 to 64 Years) (1 - PCV)] Future Scheduled Test 2022-03-06 Hepatitis C screening [facility] 19:05:17 (procedure) [code = [id number]] Future Scheduled Test 2022-03-06 COVID-19 VACCINE ([address] [place] [address] 19:05:17 Booster for Pfizer series) [code = COVID-19 VACCINE (3 - Booster for Pfizer series)] Future Scheduled Test 2022-03-06 INFLUENZA VACCINE [facility] 19:05:17 [code = INFLUENZA VACCINE] Instructions [facility] Encounters Start End Encounter Admission Attending Care Care Encounter Source Date/Time Date/Time Type Type Clinicians Facility Department ID 2022-08-26 Outpatient [place] [facility] [id number] [place] 10:40:02 [place] [id number] [facility] 2022-08-09 Inpatient GINNY GROSS [id number] [place] 16:07:58 [id number] [place] 2022-06-18 Inpatient YASMEEN KHANNA [facility] [id number] [place] 08:00:00 [id number] 2022-06-11 Inpatient YASMEEN KHANNA [facility] [id number] [place] 08:00:00 [id number] 2022-06-08 Inpatient TEXBRITT GROSS [id number] [place] 11:16:57 [id number] [place] 2022-05-31 Inpatient TEX[place] GROSS [id number] [place] 12:03:56 [id number] [place] 2022-05-[address] [place] [facility] [id number] [place] 09:43:04 [place] [id number] [facility] 2022-05-03 Inpatient YASMEEN ROMERO, [facility] [id number] [place] 09:00:00 MAYNOR -[id number] [facility] 2022-03-23 Inpatient GINNY HERRINGSAN [facility] [id number] [facility] 11:21:45 [address]76 [place] 2022-12-21 2023-01-07 Outpatient YASMEEN POND, [facility] [id number] [place] 15:14:00 00:01:00 RICH -[id number] [facility] 2022-12-03 2022-12-03 Inpatient YASMEEN POND, [facility] [id number] [place] 14:00:00 08:18:00 IRCH -[id number] [facility] 2022-11-25 2022-11-25 Outpatient CamrynsheelaSundar [facility] [id number] -2022 [place] 00:00:00 00:00:00 0518 [facility] 2022-11-25 2022-11-25 [facility] [place] - [id number] M [place] 00:00:00 00:00:00 Alma Martinez Medical Medical DRAFTER LANDSCAPE: [address] [facility] [place], [facility] [address], [place] [address] , Ph. 2022-11-19 2022-11-19 Outpatient ZAFAR Orlando, [facility] [id number] [place] 08:55:00 08:55:00 Ronnell -[id number] [facility] 2022-11-17 2022-11-17 Ronnell [facility]G [place] - [id number] [place] 00:00:00 00:00:00 Micky Lozano Medical Medical MD: [address] [facility] [place], [facility] [address], [place] [address] , Ph. 2022-10-19 2022-10-19 Emergency ER KRIVITSKIY, [facility] D000 [id number] [place] 03:22:00 05:40:00 BRENDA -[id number] [facility] 2022-09-07 2022-09-07 Telephone Duc, 1.2.840.1 [id number] 2100 [id number] Methodi 00:00:00 00:00:[address] 3.430.2.7 Hospit a .3.899903 l .8 2022-09-07 2022-09-07 Telephone Duc, 1.2.840.1 [id number] 2099 [id number] Methodi 00:00:00 00:00:[address] 3.430.2.7 Hospit a .3.356389 l .8 2022-07-26 2022-08-06 Maynor Pierson 1.2.840.1 [id number] 2099 [id number] Methodi 10:00:00 16:53:40 Visit Rich Pond 14141.1.[address] 3.430.2.7 Hospit a .3.063124 l .8 2022-07-26 2022-08-06 Maynor Pierson 1.2.840.1 [id number] 2099 [id number] Methodi 10:00:00 16:53:40 Visit JeanmisaelIsidoroRich 87056.1.[address] 3.430.2.7 Hospit a .3.457172 l .8 2022-07-29 2022-07-29 Outpatient YASMEEN KHANNA [facility] [id number] [place] 09:54:00 09:54:00 NAHUN -[id number] [facility] 2022-07-26 2022-07-26 Travel 1.2.840.1 1.2.065.416 4095 340058 Methodi 00:00:00 00:00:[address] 3.430.2.7 0.2.7.3.698 Ho spita .3.859217 084.8 l .8 2022-07-26 2022-07-26 Travel 1.2.840.1 1.2.522.773 0097 304736 Methodi 00:00:00 00:00:[address] 3.430.2.7 0.2.7.3.698 Ho spita .3.285949 084.8 l .8 2022-06-14 2022-07-10 Outpatient YASMEEN ROMERO, [facility] [id number] [place] 07:00:00 00:01:00 MAYNOR -[id number] [facility] 2022-07-05 2022-07-05 Emergency ER Barron, [facility] [id number] [place] 23:45:00 23:58:00 Neymar -[id number] [facility] 2022-06-25 2022-06-25 Outpatient YASMEEN Diaz, [facility] [id number] [place] 10:55:00 10:55:00 Ronnell -[id number] [facility] 2022-06-25 2022-06-25 Outpatient Zuniga_F [facility] 71508- 2021 [place] 00:00:00 00:00:00 1216 da Medical [facility] 2022-06-25 2022-06-25 Outpatient [facility]F [facility] [id number]- [id number] [place] 00:00:00 00:00:00 0509 da Medical [facility] 2022-06-25 2022-06-25 Outpatient Zuniga_F [facility] [id number]- [id number] [place] 00:00:00 00:00:00 0510 da Medical [facility] 2022-06-25 2022-06-25 Outpatient Zuniga_F [facility] [id number]- 3 [place] 00:00:00 00:00:00 0513 Medical [facility] 2022-06-25 2022-06-25 Radha 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 2022-06-24 2022-06-24 Orders Mariferi, 1.2.840.1 [id number] 2099 [id number] Methodi 00:00:00 00:00:00 Only Rich 73127.1.[address] 3.430.2.7 Hospit a .3.607817 l .8 2022-06-24 2022-06-24 Orders Mariferi, 1.2.840.1 [id number] 2099 211775 Methodi 00:00:00 00:00:00 Only Rich 31580.1.[address] 3.430.2.7 Hospit a .3.119472 l .8 2022-06-21 2022-06-21 Outpatient Orlando_F [facility] [id number]- 2021 [place] 00:00:00 00:00:00 1212 [facility] 2022-06-21 2022-06-21 [facility] [place] - [id number] [place] 00:00:00 00:00:00 Micky Lozano Medical Medical MD: [address] [place] [address] [address], [place] [address] , Ph. 2022-06-09 2022-06-16 Inpatient ER Orlando [facility] [id number] [place] 08:05:00 15:40:00 Ronnell -[id number] [facility] 2022-06-02 2022-06-09 Outpatient [facility] [id number] [place] 11:00:00 00:01:00 MAYNOR [id number] [facility] 2022-06-07 2022-06-07 Inpatient ER ORLANDO [facility] [id number] [place] 17:16:00 14:35:00 RONNELL [id number] [facility] 2022-06-05 2022-06-05 Emergency ER GUME [facility] [id number] [place] 15:31:00 15:45:00 JASON -[id number] [facility] 2022-05-26 2022-05-26 Outpatient YASMEEN ROMERO, [facility] [id number] [place] 11:00:00 11:00:00 MAYNOR -[id number] [facility] 2022-05-24 2022-05-24 Outpatient YASMEEN ROMERO, [facility] [id number] [place] 11:00:00 11:00:00 MAYNOR -[id number] [facility] 2022-05-21 2022-05-21 Outpatient YASMEEN ROMERO, [facility] [id number] [place] 11:00:00 11:00:00 MAYNOR -[id number] [facility] 2022-05-20 2022-05-20 Outpatient YASMEEN KHANNA, [facility] [id number] [place] 08:01:00 08:01:00 NAHUN [id number] [facility] 2022-05-19 2022-05-19 OFFICE [facility] [id number] Co mmon 00:00:00 00:00:00 VISIT [facility] PT LEVEL 3 - [facility] 2022-05-19 2022-05-19 Orders Dejah, 1.2.840.1 [id number] 2099 [id number] Methodi 00:00:00 00:00:00 Only Rich 91652.1.[address] 3.430.2.7 Hospit a .3.373320 l .8 2022-05-19 2022-05-19 Orders Dejah, 1.2.840.1 [id number] 2099 [id number] Methodi 00:00:00 00:00:00 Only Rich 82230.1.[address] 3.430.2.7 Hospit a .3.884129 l .8 2022-05-18 2022-05-18 Emergency ER JOEL, [facility] D000 [id number] [place] 19:04:00 21:55:00 BRENDA -[id number] [facility] 2022-04-30 2022-04-30 Emergency ER GUME, [facility] [id number] [place] 14:49:00 15:34:00 JASON -[id number] [facility] 2022-04-25 2022-04-25 Emergency ER Beatrice, [facility] [id number] [place] 14:10:00 14:43:00 Neymar -[id number] [facility] 2022-04-21 2022-04-21 Emergency ER JACLYN, [facility] [id number] [place] 08:47:00 10:02:00 SHI -[id number] [facility] 2022-04-19 2022-04-19 Office Wood, 1.2.840.1 [id number] 7473 Methodi 10:20:00 11:30:20 Visit Maynor Sánchez 20605.1.1 837 s t 3.430.2.7 Hospit a .3.366847 l .8 2022-04-19 2022-04-19 Office Wood, 1.2.840.1 [id number] 1892 Methodi 10:20:00 11:30:20 Visit Maynor Sánchez 39762.1.1 837 s t 3.430.2.7 Hospit a .3.596390 l .8 2022-04-19 2022-04-19 Travel 1.2.840.1 1.2.989.268 7716 719141 Methodi 00:00:00 00:00:[address] 3.430.2.7 0.2.7.3.698 Ho spita .3.604523 084.8 l .8 2022-04-19 2022-04-19 Travel 1.2.840.1 1.2.348.104 5054 492720 Methodi 00:00:00 00:00:[address] 3.430.2.7 0.2.7.3.698 Ho spita .3.727415 084.8 l .8 2022-04-16 2022-04-16 Emergency ER Barron, [facility] [id number] [place] 08:42:00 11:50:00 Neymar [id number] [facility] 2022-04-14 2022-04-14 Emergency ER JACLYN, [facility] [id number] [place] 07:08:00 08:22:00 SHI -[id number] [facility] 2022-04-05 2022-04-05 Emergency ER Melissa, [facility] [id number] [place] 12:23:00 14:08:00 Alexa -[id number] [facility] 2022-04-01 2022-04-01 Outpatient Zuniga_F MMG G [id number] [place] 00:00:00 00:00:00 921 [facility] 2022-04-01 2022-04-01 Orders Dejah, 1.2.840.1 [id number] 2099 [id number] Methodi 00:00:00 00:00:00 Only Rich 58053.1.[address] 3.430.2.7 Hospit a .3.756455 l .8 2022-04-01 2022-04-01 Orders Dejah, 1.2.840.1 [id number] 2099 [id number] Methodi 00:00:00 00:00:00 Only Rich 69945.1.[address] 3.430.2.7 Hospit a .3.467981 l .8 2022-03-31 2022-03-31 Emergency ER JACLYN, [facility] [id number] [place] 13:34:00 16:08:00 SHI -[id number] [facility] 2022-03-21 2022-03-21 Emergency ER GUME, [facility] [id number] [place] 09:47:00 14:33:00 JASON -[id number] [facility] 2022-03-19 2022-03-19 Office Dejah, 1.2.840.1 [id number] 2100 [id number] Methodi 14:20:00 14:33:59 Visit Rich 76851.1.[address] 3.430.2.7 Hospit a .3.716141 l .8 2022-03-19 2022-03-19 Office Dejah, 1.2.840.1 [id number] 2100 439033 Methodi 14:20:00 14:33:59 Visit Rich 05191.1.[address] 3.430.2.7 Hospit a .3.080692 l .8 2022-03-19 2022-03-19 Travel 1.2.840.1 1.2.265.730 6308 613349 Methodi 00:00:00 00:00:[address] 3.430.2.7 0.2.7.3.698 Ho spita .3.576641 084.8 l .8 2022-03-19 2022-03-19 Travel 1.2.840.1 1.2.635.345 2386 756901 Methodi 00:00:00 00:00:[address] 3.430.2.7 0.2.7.3.698 Ho spita .3.753089 084.8 l .8 2022-03-11 2022-03-11 Emergency ER ILUORE, [facility] [id number] [place] 09:45:00 13:28:00 JULIUS -[id number] [facility] 2022-03-09 2022-03-09 Outpatient Camrynsheela_Sundar [facility] [id number] -2021 [place] 00:00:00 00:00:00 0830 da Medical Group 2022-03-09 2022-03-09 Kia [facility] [place] - [id number] [place] 00:00:00 00:00:00 Discovery Calvin da PA-C: 600 [facility] [address], [place] [address] , Ph. 2022-03-07 2022-03-07 Emergency ER ANAYA, [facility] [id number] [place] 12:01:00 13:53:00 SHI -[id number] [facility] 2022-03-03 2022-03-03 Telephone Apolinar, 1.2.840.1 [id number] 2100 [id number] Methodi 00:00:00 00:00:[address] 3.430.2.7 Hospit a .3.996748 l .8 2022-03-03 2022-03-03 Telephone Apolinar 1.2.840.1 [id number] 2099 070115 Methodi 00:00:00 00:00:[address] 3.430.2.7 Hospit a .3.768971 l .8 2022-03-02 2022-03-02 [facility] 1.2.840.1 [id number] 01789 35900 Methodi 05:56:00 11:56:00 Encounter Maynor Sánchez 78700.1.[address] 3.430.2.7 Hospit a .3.668445 l .8 2022-03-02 2022-03-02 [facility] 1.2.840.1 [id number] 43163 71444 Methodi 05:56:00 11:56:00 Encounter Maynor Sánchez 66890.1.[address] 3.430.2.7 Hospit a .3.121696 l .8 2022-03-02 2022-03-02 Anesthesia Alfreda Duvall. 1.2.840.1 10 [id number] Methodi 07:29:00 09:55:00 Event GiovanyAnna 91437.1.[address] 3.430.2.7 Hospit a .3.045527 l .8 2022-03-02 2022-03-02 Anesthesia Alfreda Duvall. 1.2.840.1 10 [id number] Methodi 07:29:00 09:55:00 Event Giovany, Anna 57210.1.[address] 3.430.2.7 Hospit a .3.092738 l .8 2022-03-02 2022-03-02 [facility] 1.2.840.1 [id number] [id number] 5825 Methodi 07:30:00 09:50:00 Maynor Sánchez 36090.1.1 735 s t 3.430.2.7 Hospit a .3.874971 l .8 2022-03-02 2022-03-02 [facility], 1.2.840.1 [id number] 1464 Methodi 07:30:00 09:50:00 Maynor LynchJuan José 31024.1.1 735 s t 3.430.2.7 Hospit a .3.711228 l .8 2022-03-02 2022-03-02 Telephone Jeanmisael, 1.2.840.1 [id number] 21 [id number] Methodi 00:00:00 00:00:[address] 3.430.2.7 Hospit a .3.816294 l .8 2022-03-02 2022-03-02 Telephone Dejah, 1.2.840.1 [id number] 21 [id number] Methodi 00:00:00 00:00:[address] 3.430.2.7 Hospit a .3.416500 l .8 2022-03-01 2022-03-01 [facility], 1.2.840.1 [id number] 53619 01912 Methodi 12:18:26 23:59:00 Encounter Maynor Gonzalo 56991.1.[address] 3.430.2.7 Hospit a .3.755296 l .8 2022-03-01 2022-03-01 [facility], 1.2.840.1 [id number] 21001 87695 Methodi 12:18:26 23:59:00 Encounter Maynor LynchJuan José 23747.1.[address] 3.430.2.7 Hospit a .3.936841 l .8 2022-03-01 2022-03-01 [facility] 1.2.840.1 [id number] 607 6797598 Methodi 09:30:00 10:30:00 ion Maynor B. 85363.1.1 034 s t Testing 3.430.2.7 Hospit a .3.111113 l .8 2022-03-01 2022-03-01 Pre-Admiss Sallis, 1.2.840.1 [id number] 488 5261943 Methodi 09:30:00 10:30:00 ion Maynor Sánchez 28807.1.1 034 s t Testing 3.430.2.7 Hospit a .3.295757 l .8 2022-03-01 2022-03-01 Telephone Bedolla, 1.2.840.1 [id number] Methodi 00:00:00 00:00:[address] 3.430.2.7 Hospit a .3.273804 l .8 2022-03-01 2022-03-01 Travel 1.2.840.1 1.2.281.457 1362 096869 Methodi 00:00:00 00:00:[address] 3.430.2.7 0.2.7.3.698 Ho spita .3.674520 084.8 l .8 2022-03-01 2022-03-01 Telephone Bedolla, 1.2.840.1 [id number] Methodi 00:00:00 00:00:[address] 3.430.2.7 Hospit a .3.681166 l .8 2022-03-01 2022-03-01 Travel 1.2.840.1 1.2.258.997 0117 511280 Methodi 00:00:00 00:00:[address] 3.430.2.7 0.2.7.3.698 Ho spita .3.669439 084.8 l .8 2022-02-26 2022-02-26 Telephone Nick, 1.2.840.1 [id number] 2099685 Methodi 00:00:00 00:00:00 Maynor LynchJuan José 01613.1.1 279 s t 3.430.2.7 Hospit a .3.259819 l .8 2022-02-26 2022-02-26 Travel 1.2.840.1 1.2.176.167 2560 642592 Methodi 00:00:00 00:00:[address] 3.430.2.7 0.2.7.3.698 Ho spita .3.150012 084.8 l .8 2022-02-26 2022-02-26 Daniel Romero, 1.2.840.1 [id number] 2099685 Methodi 00:00:00 00:00:00 Maynor Sánchez 54309.1.1 279 s t 3.430.2.7 Hospit a .3.261966 l .8 2022-02-26 2022-02-26 Travel 1.2.840.1 1.2.926.841 1683 971249 Methodi 00:00:00 00:00:[address] 3.430.2.7 0.2.7.3.698 Ho spita .3.245788 084.8 l .8 2022-02-24 2022-02-25 Emergency [facility] 1.2.840.1 1041 67208 7700922103 Methodi 15:25:00 19:45:00 Basilio Diallo 66265.1.[address] 3.430.2.7 Hospit a .3.949095 l .8 2022-02-24 2022-02-25 Emergency Reynaldo Chamorros 1.2.840.1 1041 11957 2770064542 Methodi 15:25:00 19:45:00 Basilio Diallo 84862.1.[address] 3.430.2.7 Hospit a .3.927468 l .8 2022-02-25 2022-02-25 Transcribe Nick, 1.2.840.1 [id number] 129 [id number] Methodi 00:00:00 00:00:00 Orders Maynor Sánchez 76766.1.1 241 s t 3.430.2.7 Hospit a .3.975675 l .8 2022-02-25 2022-02-25 Orders Dejah 1.2.840.1 [id number] 2099 952262 Methodi 00:00:00 00:00:00 Only Rich 61701.1.[address] 3.430.2.7 Hospit a .3.108332 l .8 2022-02-25 2022-02-25 [facility] 1.2.840.1 [id number] 537 2086822 Methodi 00:00:00 00:00:00 Orders Maynor Pedraza50.1.1 241 s t 3.430.2.7 Hospit a .3.075787 l .8 2022-02-25 2022-02-25 Orders Dejah, 1.2.840.1 [id number] 2099 906681 Methodi 00:00:00 00:00:00 Only Rich 77932.1.[address] 3.430.2.7 Hospit a .3.682537 l .8 2022-02-24 2022-02-24 [facility], 1.2.840.1 [id number] 56210 Methodi 18:39:58 23:59:00 Encounter Maynor Pedraza50.1.[address] 3.430.2.7 Hospit a .3.759689 l .8 2022-02-24 2022-02-24 [facility], 1.2.840.1 [id number] 35609 Methodi 18:39:58 23:59:00 Encounter Maynor Sánchez 07124.1.[address] 3.430.2.7 Hospit a .3.743761 l .8 2022-02-24 2022-02-24 [facility], 1.2.840.1 [id number] 22 Methodi 18:39:26 23:59:00 Encounter Maynor Pedraza50.1.[address] 3.430.2.7 Hospit a .3.904243 l .8 2022-02-24 2022-02-24 [facility], 1.2.840.1 [id number] 53952 Methodi 18:39:26 23:59:00 Encounter Maynor Pedraza50.1.[address] 3.430.2.7 Hospit a .3.644925 l .8 2022-02-24 2022-02-24 Kim Romero, 1.2.840.1 [id number] 516534 8521 Methodi 00:00:00 00:00:00 Only Maynor Sánchez 18513.1.1 790 s t 3.430.2.7 Hospit a .3.291843 l .8 2022-02-24 2022-02-24 Travel 1.2.840.1 1.2.304.922 8755 920562 Methodi 00:00:00 00:00:[address] 3.430.2.7 0.2.7.3.698 Ho spita .3.121432 084.8 l .8 2022-02-24 2022-02-24 Kim Romero, 1.2.840.1 [id number] 976119 4424 Methodi 00:00:00 00:00:00 Only Maynor Sánchez 94808.1.1 790 s t 3.430.2.7 Hospit a .3.858657 l .8 2022-02-24 2022-02-24 Travel 1.2.840.1 1.2.636.160 7189 153973 Methodi 00:00:00 00:00:[address] 3.430.2.7 0.2.7.3.698 Ho spita .3.464149 084.8 l .8 2022-02-12 2022-02-12 Emergency ER GUME, [facility] [id number] [place] 08:42:00 13:17:00 JASON -[id number] [facility] 2022-01-26 2022-01-26 Outpatient ANDREIA ANTONIO 909 [place] 12:18:00 12:18:00 _DOREEN 0719 da [facility] [place] [facility] 2022-01-17 2022-01-17 Emergency ER Melissa, [facility] [id number] [place] 18:06:00 21:18:00 Alexa -[id number] [facility] 2021-12-18 2021-12-18 Office Nick, 1.2.840.1 [id number] 8727 Methodi 10:20:00 11:32:26 Visit Maynor Sánchez 02961.1.1 071 s t 3.430.2.7 Hospit a .3.240693 l .8 2021-12-18 2021-12-18 [id number] 960 [place] 00:00:00 00:00:00 MAYNOR [address] 2021-12-18 2021-12-18 Travel 1.2.840.1 1.2.474.223 1007 862764 Methodi 00:00:00 00:00:[address] 3.430.2.7 0.2.7.3.698 Ho spita .3.157089 084.8 l .8 2021-12-18 2021-12-18 Outpatient NICK [facility] [id number] 971 [place] 00:00:00 00:00:00 MAYNOR [address] 2021-11-30 2021-11-30 Emergency ER [facility] [id number] 79 [place] 01:26:00 04:02:00 HARRISON -[id number] [facility] 2021-11-06 2021-11-06 Outpatient Cam[facility]kins[facility] [id number] -2021 [place] 12:33:00 12:33:00 0502 Medical Group 2021-11-06 2021-11-06 [place] [id number] -2021 [place] 00:00:00 00:00:00 0429 Medical Group 2021-11-06 2021-11-06 Susan [facility] [place] - [id number] M atagor 00:00:00 00:00:00 Alma Martinez Medical Medical [employer]: [address] [facility] [address], [place] [address] , Ph. 2021-11-05 2021-11-05 [place] [id number] [place] 04:51:00 04:51:00 0428 [facility] 2021-09-14 2021-09-14 Outpatient Koudela[facility] [id number] [place] 12:39:00 12:39:00 0307 [facility] 2021-09-14 2021-09-14 Kia [facility] [place] - [id number] M atagor 00:00:00 00:00:00 Discovery Calvin da PA-C: 600 [facility] [place] [address], [facility] [place] [address] , Ph. 2021-09-14 2021-09-14 Travel 1.2.840.1 1.2.039.180 3002 [id number] Methodi 00:00:00 00:00:[address] 3.430.2.7 0.2.7.3.698 Ho spita .3.822599 084.8 l .8 2021-08-10 2021-08-10 Outpatient Koudela_A [facility] [id number] -2021 [place] 11:36:00 11:36:00 0131 da [facility] 2021-08-10 2021-08-10 Outpatient Koud[facility] [id number] [place] 11:36:00 11:36:00 0211 Medical Group 2021-08-10 2021-08-10 Outpatient EL MICHELOMKAR, [facility] [id number] [place] 11:05:00 11:05:00 KIA -[id number] [facility] 2021-06-24 2021-06-24 Inpatient ER Nawaf, [facility] [id number] [place] 00:24:00 13:53:00 Abraham -[id number] [facility] 2021-05-04 2021-05-04 Outpatient Zuniga_F [facility] [id number] [place] 10:22:00 10:22:00 1220 [facility] Group 2021-04-28 2021-04-29 Emergency ER MARCUS, [facility] [id number] [place] 18:03:00 01:22:00 BARBARA -[id number] [facility] 2021-03-26 2021-03-26 Outpatient Zuniga_F [place] [place] [id number] [place] 10:53:00 10:53:00 0916 [facility] 2021-03-26 2021-03-26 Outpatient EL Orlando, [facility] [id number] [place] 08:44:00 08:44:00 Ronnell -[id number] [facility] 2021-03-26 2021-03-26 Ronnell [facility] [place] - [id number] [place] 00:00:00 00:00:00 Micky Lozano Medical Medical MD: [address] [place] [address], [place] [address] , Ph. 2021-03-10 2021-03-10 [place] [id number] [place] 04:23:00 04:23:00 0831 [facility] 2021-03-10 2021-03-10 Ronnell [facility] [place] - [id number] [place] 00:00:00 00:00:00 Aracelis Klein Medical MD: [address] [place] [address], [place] [address] , Ph. 2021-02-19 2021-02-19 Emergency ER MARK MUNGUIAS [facility] [id number] [place] 09:17:00 18:11:00 -[id number] [facility] 2021-02-18 2021-02-18 Outpatient Zuniga_F MMG MMG [id number] [place] 10:58:00 10:58:00 0811 Medical [facility] 2021-02-13 2021-02-13 Outpatient Zuniga_S MMG MMG [id number] [place] 11:36:00 11:36:00 0806 [facility] 2021-02-11 2021-02-11 Outpatient Zuniga_S MMG [facility] [id number] [place] 04:11:00 04:11:00 0804 [facility] 2021-01-18 2021-01-18 Emergency ER CHINO [facility] [id number] [place] 07:23:00 15:33:00 PRISCILA -[id number] [facility] 2021-01-02 2021-01-02 [place] [id number] [place] 11:03:00 11:03:00 0625 [facility] 2021-01-02 2021-01-02 [place] [id number] [place] 11:03:00 11:03:00 0626 [facility] Group 2021-01-02 2021-01-02 Radha [facility] [place] - [id number] [place] 00:00:00 00:00:00 Discovery perry Diaz EVENT DECORATOR-C: [address] [facility] [address], [facility] [address] , Ph. 2020-07-15 2020-07-15 Outpatient Zuniga_F MMG [facility] [id number] [place] 12:50:00 12:50:00 0105 [facility] 2020-07-15 2020-07-15 Outpatient Zuniga_F MMG [facility] [id number] [place] 12:50:00 12:50:00 0111 [facility] 2020-07-15 2020-07-15 Tyson [facility] [place] - [id number] [place] 00:00:00 00:00:00 Discovery perry Munoz MD: [address] [place] [address] [address], [place] [address] , Ph. [phone] 2020-07-14 2020-07-14 Outpatient Zuniga_F MMG [facility] [id number] [place] 04:30:00 04:30:00 0104 [facility] 2020-07-14 2020-07-14 Ronnell [facility] [place] - [id number] [place] 00:00:00 00:00:00 Aracelis Klein MD: [address] [facility] [address], [place] [address] , Ph. 2020-07-10 2020-07-10 Outpatient Zuniga_F MM[facility] MMG [id number] [place] 10:29:00 10:29:00 1231 [facility] 2020-07-07 2020-07-08 Emergency ER CHINO, [facility] [id number] [place] 23:32:00 12:45:00 PRISCILA [id number] [facility] 2020-02-26 2020-02-26 Outpatient Zuniga_F MM[facility] MMG [id number] [place] 12:39:00 12:39:00 1229 [facility] 2020-02-26 2020-02-26 Outpatient Zuniga_F MM[facility] MMG [id number] [place] 12:39:00 12:39:00 1230 [facility] 2020-01-30 2020-01-30 Outpatient Zuniga_F MMG MMG [id number] [place] 08:08:00 08:08:00 0722 [facility] 2020-01-30 2020-01-30 Ronnell [facility] [place] - [id number] [place] 00:00:00 00:00:00 Aracelis Klein MD: [address] [facility] [address], [place] [address] , Ph. 2020-01-29 2020-01-29 Outpatient Raju_P MMG MMG [id number] [place] 04:40:00 04:40:00 0721 [facility] 2019-11-06 2019-11-06 Outpatient Raju_P MMG MMG [id number] [place] 03:29:00 03:29:00 0428 [facility] 2019-11-06 2019-11-06 Outpatient Raju_P MMG MMG [id number] [place] 03:29:00 03:29:00 0429 [facility] 2019-03-02 2019-03-02 Outpatient EL SILVA, [facility] [id number] [place] 11:02:00 11:02:00 BYROLYN -[id number] [facility] 2019-02-13 2019-02-13 Emergency ER CHINO, [facility] [id number] [place] 17:16:00 18:34:00 PRISCILA -[id number] [facility] 2018-02-07 2018-02-07 Outpatient YASMEEN LUU [facility] D00 [id number] [place] 09:47:00 09:47:00 SUNNY Llanes -[id number] [facility] 2017-10-12 2017-10-12 Emergency ER OWO, TOKS [facility] [id number] [place] 17:50:00 19:49:00 -[id number] [facility] 2017-06-01 2017-06-01 Emergency ER OWO, TOKS [facility] [id number] [place] 04:32:00 06:26:00 -[id number] [facility] 2017-02-24 2017-02-24 Outpatient YASMEEN ASCENCIO, [facility] [id number] [place] 08:41:00 08:41:00 BYROLYN -[id number] [facility] 2017-01-13 2017-01-13 Emergency ER UGORJI, [facility] [id number] [place] 00:20:00 03:56:00 CLEMENT -[id number] [facility] 2016-09-02 2016-09-02 Emergency ER UGORJI, [facility] [id number] [place] 13:20:00 14:30:00 CLEMENT -[id number] [facility] 2016-04-28 2016-04-29 Emergency ER OWO, TOKS [facility] [id number] [place] 22:59:00 01:22:00 -[id number] [facility] 2015-09-28 2015-09-29 Emergency ER SAEMI, [facility] [id number] [place] 21:04:00 08:15:00 NUNO -[id number] [facility] 2015-05-05 2015-05-05 Emergency ER UGORJI, [facility] [id number] [place] 19:34:00 21:26:00 CLEALONZO -[id number] [facility] 2014-11-07 2014-11-08 Emergency ER CELSA MUNGUIA [facility] [id number] [place] 23:26:00 04:30:00 -[id number] [facility] 2014-08-01 2014-08-01 Outpatient EL VALLOPPILLI [facility] D00 [id number] [place] 12:03:00 12:03:00 L, AMMINI -[id number] [facility] 2011-12-29 2011-12-29 Emergency ER DONTE, [facility] [id number] [place] 19:51:00 22:10:00 PARKER -[id number] [facility] 2011-11-12 2011-11-12 Outpatient EL VALLOPPILLI [facility] D00 [id number] [place] 07:58:00 07:58:00 L, AMMINI -[id number] [facility] 2011-10-10 2011-10-11 Emergency ER , [facility] [id number] [place] 22:24:00 01:45:00 WASIM -[id number] [facility] 2011-10-06 2011-10-06 Emergency ER JOHNNY, [facility] [id number] [place] 00:27:00 06:30:00 CEDRIC -[id number] [facility] 2011-09-08 2011-09-08 Outpatient EL VALLOPPILLI [facility] D00 [id number] [place] 11:57:00 11:57:00 L AMMINI -[id number] [facility] 2010-06-16 2010-06-17 Emergency ER LARISSA, [facility] [id number] [place] 18:00:00 04:05:00 ZBIGNIEW -[id number] vasquez [facility] 2010-03-24 2010-03-24 Outpatient EL VALLOPPILLI [facility] D00 [id number] [place] 14:21:00 14:21:00 Mario Alberto AMMINI -[id number] [facility] Results Test Description Test Time Test Comments [...] alkaline 60 U/L 40-1 30 phosphatase, total) [facility] 12:31:00 Test Item Value Reference Range Interpretation Comments lipase (test code = lipase) 290 U/L 13-60 H [facility] Differential panel - [id number] 12:07:00 Test Item Value Reference Range Interpretation [...] NRBC# (test code = NRBC#) 0 K/uL [facility]lexed)2022-06-16 07:40:00 Test Item Value [...] (test code = normal normal platelet morphology) [facility] 07:12:00 Test Item Value Reference Range Interpretation Comments lipase (test code = lipase) 432 U/L 13-60 H [facility] 2000 [facility] - Serum or [...] U/L 40-130 code = alkaline phosphatase, total) [facility] 07:06:00 Test Item Value Reference Range Interpretation Comments LDH (test code = LDH) 421 U/L 135-225 H [facility]2022-[facility]-07 07:06:00 Test Item Value Reference Range Interpretation Comments LDH (test code = LDH) 421 U/L 135-225 H [facility] W Auto Differential panel - [id number] 06:46:00 Test Item Value Reference Range Interpretation [...] morph. normal RBC code = morphology comment) [facility]22-12-06 11:10:00 Test Item Value Reference Range Interpretation Comments lipase (test code = lipase) 478 U/L 13-60 H [facility] - Serum or [...] U/L 40-130 code = alkaline phosphatase, total) [facility] W Ordered Manual Differential panel - [id number] 10:52:00 Test Item Value Reference Range Interpretation [...] (test normal normal code = platelet morphology) [facility] (reflexed)2022-06-14 05:46:00 Test Item Value [...] (test code = normal normal platelet morphology) [facility] - Serum or [...] U/L 40-130 code = alkaline phosphatase, total) [facility]22-12-05 05:30:00 Test Item Value Reference Range Interpretation Comments lipase (test code = lipase) 273 U/L 13-60 H [facility] W Auto Differential panel - [id number] 05:16:00 Test Item Value Reference Range Interpretation [...] morph. normal RBC code = morphology comment) [facility] diff (reflexed)2022-06-13 11:13:00 Test Item Value [...] (test code = normal normal platelet morphology) [facility] diff (reflexed)2022-06-13 11:13:00 Test Item Value [...] (test code = normal normal platelet morphology) [facility] diff (reflexed)2022-06-13 11:13:00 Test Item Value [...] (test code = normal normal platelet morphology) [facility] diff (reflexed)2022-06-13 11:13:00 Test Item Value [...] (test code = normal normal platelet morphology) [facility] W Auto Differential panel - [id number] 08:26:00 Test Item Value Reference Range Interpretation [...] NRBC# (test code = NRBC#) 0 K/uL [facility] - [id number] 08:26:00 Test Item Value Reference Range Interpretation [...] NRBC# (test code = NRBC#) 0 K/uL [facility] 2000 [facility] - Serum or [...] U/L 40-130 code = alkaline phosphatase, total) [facility] 08:22:00 Test Item Value Reference Range Interpretation Comments lipase (test code = lipase) 226 U/L 13-60 H [facility] 2000 [facility] - Serum or [...] U/L 40-130 code = alkaline phosphatase, total) [facility]22-[facility]-04 08:22:00 Test Item Value Reference Range Interpretation Comments lipase (test code = lipase) 226 U/L 13-60 H [facility] 2000 panel - Serum or [...] U/L 40-130 code = alkaline phosphatase, total) [facility]22-12-03 04:36:00 Test Item Value Reference Range Interpretation Comments lipase (test code = lipase) 102 U/L 13-60 H [facility]2022-12-03 04:36:00 Test Item Value Reference Range Interpretation Comments lipase (test code = lipase) 102 U/L 13-60 H [facility] 2000 panel - Serum or [...] U/L 40-130 code = alkaline phosphatase, total) [facility]22-[facility] 04:36:00 Test Item Value Reference Range Interpretation Comments lipase (test code = lipase) 102 U/L 13-60 H [facility]2022-12-03 04:36:00 Test Item Value Reference Range Interpretation Comments lipase (test code = lipase) 102 U/L 13-60 H [facility] W Auto Differential panel - [id number] 04:18:00 Test Item Value Reference Range Interpretation [...] NRBC# (test code = NRBC#) 0 K/uL [facility] W Auto Differential panel - [id number] 04:18:00 Test Item Value Reference Range Interpretation [...] NRBC# (test code = NRBC#) 0 K/uL [facility]22-[facility]-02 08:39:00 Test Item Value Reference Range Interpretation Comments LDH (test code = LDH) 457 U/L 135-225 H [facility]2022-12-02 08:39:00 Test Item Value Reference Range Interpretation Comments LDH (test code = LDH) 457 U/L 135-225 H [facility] [id number] 08:26:00 Test Item Value Reference Range Interpretation Comments lactic acid (test code = lactic 1.12 mmol/L 0.5-2.2 acid) [facility] [id number] 08:26:00 Test Item Value Reference Range Interpretation Comments lactic acid (test code = lactic 1.12 mmol/L 0.5-2.2 acid) [facility] 07:47:00 Test Item Value Reference Range Interpretation Comments lipase (test code = lipase) 136 U/L 13-60 H [facility]2022-12-02 07:47:00 Test Item Value Reference Range Interpretation Comments lipase (test code = lipase) 136 U/L 13-60 H [facility] 2000 panel - Serum or [...] U/L 40-130 code = alkaline phosphatase, total) [facility] - Serum or [...] U/L 40-130 code = alkaline phosphatase, total) [facility] diff (reflexed)2022-06-11 07:30:00 Test Item Value [...] (test code = normal normal platelet morphology) [facility] diff (reflexed)2022-06-11 07:30:00 Test Item Value [...] (test code = normal normal platelet morphology) [facility] W Auto Differential panel - [id number] 07:23:00 Test Item Value Reference Range Interpretation [...] morph. normal RBC code = morphology comment) [facility] W Auto Differential panel - [id number] 07:23:00 Test Item Value Reference Range Interpretation [...] morph. normal RBC code = morphology comment) [facility] panel - Arterial [id number] 15:03:00 Test Item Value Reference Range Interpretation [...] (test code = O2 7.9 mmol/L content) [facility] panel - Arterial [id number] 15:03:00 Test Item Value Reference Range Interpretation [...] (test code = O2 7.9 mmol/L content) [facility] [id number] 13:03:00 Test Item Value Reference Range Interpretation Comments blood culture (test code = final report. blood culture) [facility] [id number] 13:03:00 Test Item Value Reference Range Interpretation Comments blood culture (test code = final report. blood culture) [facility]2022-06-10 07:41:00 Test Item Value [...] (test code = normal normal platelet morphology) [facility]lex[facility])2022-06-10 07:41:00 Test Item Value [...] (test code = normal normal platelet morphology) [facility] 07:33:00 Test Item Value Reference Range Interpretation Comments LDH (test code = LDH) 319 U/L 135-225 H [facility]2022-12-01 07:33:00 Test Item Value Reference Range Interpretation Comments LDH (test code = LDH) 319 U/L 135-225 H [facility]Com[facility] 2000 panel - Serum or [...] U/L 40-130 code = alkaline phosphatase, total) [facility] 07:28:00 Test Item Value Reference Range Interpretation Comments lipase (test code = lipase) 297 U/L 13-60 H [facility] 2000 panel - Serum or [...] U/L 40-130 code = alkaline phosphatase, total) [facility]22-[facility]-01 07:28:00 Test Item Value Reference Range Interpretation Comments lipase (test code = lipase) 297 U/L 13-60 H [facility] [id number] 07:26:00 Test Item Value Reference Range Interpretation Comments lactic acid (test code = lactic 1.18 mmol/L 0.5-2.2 acid) [facility] [id number] 07:26:00 Test Item Value Reference Range Interpretation Comments lactic acid (test code = lactic 1.18 mmol/L 0.5-2.2 acid) [facility] [id number] 06:53:00 Test Item Value Reference Range Interpretation Comments ionized calcium (test code = 4.17 mg/dL 4.34-5.00 L ionized calcium) [facility] W Auto Differential panel - [id number] 06:53:00 Test Item Value Reference Range Interpretation [...] morph. normal RBC code = morphology comment) [facility] [id number] 06:53:00 Test Item Value Reference Range Interpretation Comments ionized calcium (test code = 4.17 mg/dL 4.34-5.00 L ionized calcium) [facility] W Auto Differential panel - [id number] 06:53:00 Test Item Value Reference Range Interpretation [...] morph. normal RBC code = morphology comment) [facility]2022-11-30 06:34:00 Test Item Value Reference Range Interpretation Comments lipase (test code = lipase) 1018 U/L 13-60 H [facility]2022-11-30 06:34:00 Test Item Value Reference Range Interpretation Comments lipase (test code = lipase) 1018 U/L 13-60 H [facility]2022-11-30 06:33:00 Test Item Value Reference Range Interpretation Comments LDH (test code = LDH) 296 U/L 135-225 H [facility]2022-11-30 06:33:00 Test Item Value Reference Range Interpretation Comments LDH (test code = LDH) 296 U/L 135-225 H [facility] 2000 panel - Serum or [...] U/L 40-130 code = alkaline phosphatase, total) [facility] - Serum or [...] U/L 40-130 code = alkaline phosphatase, total) [facility] [id number] 06:26:00 Test Item Value Reference Range Interpretation Comments lactic acid (test code = lactic 1.00 mmol/L 0.5-2.2 acid) [facility] [id number] 06:26:00 Test Item Value Reference Range Interpretation Comments lactic acid (test code = lactic 1.00 mmol/L 0.5-2.2 acid) [facility] W Auto Differential panel - [id number] 06:16:00 Test Item Value Reference Range Interpretation [...] NRBC# (test code = NRBC#) 0 K/uL [facility] W Auto Differential panel - [id number] 06:16:00 Test Item Value Reference Range Interpretation [...] NRBC# (test code = NRBC#) 0 K/uL [facility] [id number] 05:06:00 Test Item Value Reference Range Interpretation [...] (test code = 6.828 cholesterol risk ratio) [facility] [id number] 05:06:00 Test Item Value Reference Range Interpretation [...] (test code = 6.828 cholesterol risk ratio) [facility]2022-11-29 04:59:00 Test Item Value Reference Range Interpretation Comments lipase (test code = lipase) 1955 U/L 13-60 H [facility]2022-11-29 04:59:00 Test Item Value Reference Range Interpretation Comments lipase (test code = lipase) 1955 U/L 13-60 H [facility]2022-11-29 04:59:00 Test Item Value Reference Range Interpretation Comments lipase (test code = lipase) 1955 U/L 13-60 H [facility]2022-11-29 04:59:00 Test Item Value Reference Range Interpretation Comments lipase (test code = lipase) 1955 U/L 13-60 H [facility] W Auto Differential panel - [id number] 04:07:00 Test Item Value Reference Range Interpretation [...] NRBC# (test code = NRBC#) 0 K/uL [facility] W Auto Differential panel - [id number] 04:07:00 Test Item Value Reference Range Interpretation [...] NRBC# (test code = NRBC#) 0 K/uL [facility] [id number] 18:23:00 Test Item Value Reference Range Interpretation Comments alcohol level (test code = alcohol < 10.0 0.0-10.1 level) [facility] [id number] 18:23:00 Test Item Value Reference Range Interpretation Comments alcohol level (test code = alcohol < 10.0 0.0-10.1 level) [facility]2022-08-23 11:47:00 Test Item Value Reference Range Interpretation Comments POC glucose (test code = 103 mg/dL 65-99 H Ope rator Name: 86731-8) Nba Urbina in [facility] [place] ID: [id number] able: RN Notified Lab Interpretation (test Abnormal code = 41155-7) [facility]2022-08-23 11:47:00 Test Item Value Reference Range Interpretation Comments POC glucose (test code = 103 mg/dL 65-99 H Ope rator Name: 57985-6) Esmcarito Qurakurtula in [facility] [place] ID: [id number] able: RN Notified Lab Interpretation (test Abnormal code = 06634-4) [facility]2022-08-23 11:47:00 Test Item Value Reference Range Interpretation Comments POC glucose (test code = 103 mg/dL 65-99 H Ope rator Name: 28513-7) Esmail Quratula in [facility] [place] ID: [id number] able: RN Notified Lab Interpretation (test Abnormal code = 41516-2) [facility]2022-08-23 11:47:00 Test Item Value Reference Range Interpretation Comments POC glucose (test code = 103 mg/dL 65-99 H Ope rator Name: 84020-2) Esmcarito Quratula in [facility] [place] ID: [id number] able: RN Notified Lab Interpretation (test Abnormal code = 19158-3) [facility]2022-08-23 11:47:00 Test Item Value Reference Range Interpretation Comments POC glucose (test code = 103 mg/dL 65-99 H Ope rator Name: 77116-1) Esmail Quratula in [facility] [place] ID: [id number] able: RN Notified Lab Interpretation (test Abnormal code = 26578-7) [facility]2022-08-23 11:47:00 Test Item Value Reference Range Interpretation Comments POC glucose (test code = 103 mg/dL 65-99 H Ope rator Name: 47050-6) Esmail Quratula in [facility] [place] ID: [id number] able: RN Notified Lab Interpretation (test Abnormal code = 23123-0) [facility]2022-08-23 11:47:00 Test Item Value Reference Range Interpretation Comments POC glucose (test code = 103 mg/dL 65-99 H Ope rator Name: 01081-9) Esmail Quratula in [facility] [place] ID: [id number] able: RN Notified Lab Interpretation (test Abnormal code = 26030-3) [facility]2022-08-23 11:47:00 Test Item Value Reference Range Interpretation Comments POC glucose (test code = 103 mg/dL 65-99 H Ope rator Name: 43330-2) Esmail Quratula in [facility] [place] ID: [id number] able: RN Notified Lab Interpretation (test Abnormal code = 14113-5) [facility]2022-08-23 11:47:00 Test Item Value Reference Range Interpretation Comments POC glucose (test code = 103 mg/dL 65-99 H Ope rator Name: 83091-8) Esmail Quratula in [facility] [place] ID: [id number] able: RN Notified Lab Interpretation (test Abnormal code = 04131-7) [facility]2022-08-23 11:47:00 Test Item Value Reference Range Interpretation Comments POC glucose (test code = 103 mg/dL 65-99 H Ope rator Name: 61181-9) Esmail Quratula in [facility] [place] ID: [id number] able: RN Notified Lab Interpretation (test Abnormal code = 37696-4) [facility] [id number] 11:47:00 Test Item Value Reference Range Interpretation Comments POC glucose (test code = 103 mg/dL 65-99 H Ope rator Name: 31103-4) Esmail Quratula in [facility] [place] ID: [id number] able: RN Notified Lab Interpretation (test Abnormal code = 07005-4) [facility]2022-08-23 11:47:00 Test Item Value Reference Range Interpretation Comments POC glucose (test code = 103 mg/dL 65-99 H Ope rator Name: 71185-5) Esmail Quratula in [facility] [place] ID: [id number] able: RN Notified Lab Interpretation (test Abnormal code = 22077-2) [facility]2022-08-23 11:47:00 Test Item Value Reference Range Interpretation Comments POC glucose (test code = 103 mg/dL 65-99 H Ope rator Name: 05444-4) Esmail Quratula in [facility] [place] ID: [id number] able: RN Notified Lab Interpretation (test Abnormal code = 77986-0) [facility]2022-08-23 11:47:00 Test Item Value Reference Range Interpretation Comments POC glucose (test code = 103 mg/dL 65-99 H Ope rator Name: 52042-9) Esmail Quratula in [facility] [place] ID: [id number] able: RN Notified Lab Interpretation (test Abnormal code = 31768-1) [facility]2022-08-23 11:47:00 Test Item Value Reference Range Interpretation Comments POC glucose (test code = 103 mg/dL 65-99 H Ope rator Name: 12033-9) Esmail Quratula in [facility] [place] ID: [id number] able: RN Notified Lab Interpretation (test Abnormal code = 02395-0) [facility]2022-08-23 11:47:00 Test Item Value Reference Range Interpretation Comments POC glucose (test code = 103 mg/dL 65-99 H Ope rator Name: 92048-7) Esmail Quratula in [facility] [place] ID: [id number] able: RN Notified Lab Interpretation (test Abnormal code = 53406-0) [facility]2022-08-23 11:47:00 Test Item Value Reference Range Interpretation Comments POC glucose (test code = 103 mg/dL 65-99 H Ope rator Name: 64811-1) Esmail Quratula in [facility] [place] ID: [id number] able: RN Notified Lab Interpretation (test Abnormal code = 18210-8) [facility]2022-08-23 11:47:00 Test Item Value Reference Range Interpretation Comments POC glucose (test code = 103 mg/dL 65-99 H Ope rator Name: 35699-4) Esmail Quratula in [facility] ID: [id number] able: RN Notified Lab Interpretation (test Abnormal code = 09376-1) [facility]2022-08-23 11:47:00 Test Item Value Reference Range Interpretation Comments POC glucose (test code = 103 mg/dL 65-99 H Ope rator Name: 96812-5) Esmail Quratula in [facility] [place] ID: [id number] able: RN Notified Lab Interpretation (test Abnormal code = 65512-1) [facility]2022-08-23 11:47:00 Test Item Value Reference Range Interpretation Comments POC glucose (test code = 103 mg/dL 65-99 H Ope rator Name: 13207-5) Esmail Quratula in [facility] ID: [id number] able: RN Notified Lab Interpretation (test Abnormal code = 47035-4) [facility]2022-08-23 11:47:00 Test Item Value Reference Range Interpretation Comments POC glucose (test code = 103 mg/dL 65-99 H Ope rator Name: 89496-1) Esmail Quratula in [facility] ID: [id number] able: RN Notified Lab Interpretation (test Abnormal code = 44427-0) [facility]2022-08-23 11:47:00 Test Item Value Reference Range Interpretation Comments POC glucose (test code = 103 mg/dL 65-99 H Ope rator Name: 55424-4) Esmail Quratula in [facility] ID: [id number] able: RN Notified Lab Interpretation (test Abnormal code = 92768-5) [facility] [id number] 11:47:00 Test Item Value Reference Range Interpretation Comments POC glucose (test code = 103 mg/dL 65-99 H Ope rator Name: 16756-8) Esmail Quratula in [facility] [place] ID: [id number] able: RN Notified Lab Interpretation (test Abnormal code = 37864-2) [facility]2022-08-23 11:47:00 Test Item Value Reference Range Interpretation Comments POC glucose (test code = 103 mg/dL 65-99 H Ope rator Name: [id number]) Esmail Quratula in [facility] [place] ID: [id number] able: RN Notified Lab Interpretation (test Abnormal code = 06948-5) [facility]2022-08-23 11:47:00 Test Item Value Reference Range Interpretation Comments POC glucose (test code = 103 mg/dL 65-99 H Ope rator Name: [id number]) Esmail Quratula in [facility] [place] ID: [id number] able: RN Notified Lab Interpretation (test Abnormal code = 04796-6) [facility]2022-08-23 11:47:00 Test Item Value Reference Range Interpretation Comments POC glucose (test code = 103 mg/dL 65-99 H Ope rator Name: [id number]) Esmail Quratula in [facility] [place] ID: [id number] able: RN Notified Lab Interpretation (test Abnormal code = 71481-0) [facility]2022-08-23 11:47:00 Test Item Value Reference Range Interpretation Comments POC glucose (test code = 103 mg/dL 65-99 H Ope rator Name: [id number]) Esmail Quratula in [facility] [place] ID: [id number] able: RN Notified Lab Interpretation (test Abnormal code = 22358-8) [facility]2022-08-23 11:47:00 Test Item Value Reference Range Interpretation Comments POC glucose (test code = 103 mg/dL 65-99 H Ope rator Name: [id number]) Esmail Quratula in [facility] [place] ID: [id number] able: RN Notified Lab Interpretation (test Abnormal code = 19124-4) [facility] [id number] 11:47:00 Test Item Value Reference Range Interpretation Comments POC glucose (test code = 103 mg/dL 65-99 H Ope rator Name: [id number]) Esmail Quratula in [facility] [place] ID: [id number] able: RN Notified Lab Interpretation (test Abnormal code = 79068-9) [facility] [id number] 11:47:00 Test Item Value Reference Range Interpretation Comments POC glucose (test code = 103 mg/dL 65-99 H Ope rator Name: [id number]) Esmail Quratula in [facility] [place] ID: [id number] able: RN Notified Lab Interpretation (test Abnormal code = 59532-4) [facility] Pre/Post [id number] 20:29:23 Test Item Value Reference Range Interpretation Comments Ventricular rate (test 84 code = 253) Atrial rate (test code = 84 255) OK interval (test code = 172 266) QRSD [...] Emery MD (2064) on 03/01/2022 3:29:18 PM [facility] Pre/Post [id number] 20:29:23 Test Item Value Reference Range Interpretation Comments Ventricular rate (test code = 253) Atrial rate (test code = 255) OK interval (test code = 266) QRSD interval [...] Emery MD (2064) on 03/01/2022 3:29:18 PM [facility] Pre/Post [id number] 20:29:23 Test Item Value Reference Range Interpretation Comments Ventricular rate (test code = 253) Atrial rate (test code = 255) OK interval (test code = 266) QRSD interval [...] Emery MD (2064) on 03/01/2022 3:29:18 PM [facility] Pre/Post [id number] 20:29:23 Test Item Value Reference Range Interpretation Comments Ventricular rate (test code = 253) Atrial rate (test code = 255) OK interval (test code = 266) QRSD interval [...] Emery MD (2064) on 03/01/2022 3:29:18 PM [facility] Pre/Post [id number] 20:29:23 Test Item Value Reference Range Interpretation Comments Ventricular rate (test code = 253) Atrial rate (test code = 255) OK interval (test code = 266) QRSD interval [...] Emery MD (2064) on 03/01/2022 3:29:18 PM [facility] Pre/Post [id number] 20:29:23 Test Item Value Reference Range Interpretation Comments Ventricular rate (test code = 253) Atrial rate (test code = 255) OK interval (test code = 266) QRSD interval [...] Emery MD (2064) on 03/01/2022 3:29:18 PM [facility] Pre/Post [id number] 20:29:23 Test Item Value Reference Range Interpretation Comments Ventricular rate (test code = 253) Atrial rate (test code = 255) OK interval (test code = 266) QRSD interval [...] Emery MD (2064) on 03/01/2022 3:29:18 PM [facility] Pre/Post [id number] 20:29:23 Test Item Value Reference Range Interpretation Comments Ventricular rate (test code = 253) Atrial rate (test code = 255) OK interval (test code = 266) QRSD interval [...] Emery MD (2064) on 03/01/2022 3:29:18 PM [facility] Pre/Post [id number] 20:29:23 Test Item Value Reference Range Interpretation Comments Ventricular rate (test code = 253) Atrial rate (test code = 255) OK interval (test code = 266) QRSD interval [...] Emery MD (2064) on 03/01/2022 3:29:18 PM [facility] Pre/Post [id number] 20:29:23 Test Item Value Reference Range Interpretation Comments Ventricular rate (test code = 253) Atrial rate (test code = 255) OK interval (test code = 266) QRSD interval [...] Emery MD (2064) on 03/01/2022 3:29:18 PM [facility] Pre/Post [id number] 20:29:23 Test Item Value Reference Range Interpretation Comments Ventricular rate (test code = 253) Atrial rate (test code = 255) OK interval (test code = 266) QRSD interval [...] Emery MD (2064) on 03/01/2022 3:29:18 PM [facility] Pre/Post [id number] 20:29:23 Test Item Value Reference Range Interpretation Comments Ventricular rate (test code = 253) Atrial rate (test code = 255) OK interval (test code = 266) QRSD interval [...] Emery MD (2064) on 03/01/2022 3:29:18 PM [facility] Pre/Post [id number] 20:29:23 Test Item Value Reference Range Interpretation Comments Ventricular rate (test code = 253) Atrial rate (test code = 255) OK interval (test code = 266) QRSD interval [...] Emery MD (2064) on 03/01/2022 3:29:18 PM [facility] Pre/Post [id number] 20:29:23 Test Item Value Reference Range Interpretation Comments Ventricular rate (test code = 253) Atrial rate (test code = 255) OK interval (test code = 266) QRSD interval [...] Emery MD (2064) on 03/01/2022 3:29:18 PM [facility] Pre/Post [id number] 20:29:23 Test Item Value Reference Range Interpretation Comments Ventricular rate (test code = 253) Atrial rate (test code = 255) OK interval (test code = 266) QRSD interval [...] Emery MD (2064) on 03/01/2022 3:29:18 PM [facility] Pre/Post [id number] 20:29:23 Test Item Value Reference Range Interpretation Comments Ventricular rate (test code = 253) Atrial rate (test code = 255) OK interval (test code = 266) QRSD interval [...] Emery MD (2064) on 03/01/2022 3:29:18 PM [facility] Pre/Post [id number] 20:29:23 Test Item Value Reference Range Interpretation Comments Ventricular rate (test code = 253) Atrial rate (test code = 255) OK interval (test code = 266) QRSD interval [...] Emery MD (2064) on 03/01/2022 3:29:18 PM [facility] Pre/Post [id number] 20:29:23 Test Item Value Reference Range Interpretation Comments Ventricular rate (test 84 code = 253) Atrial rate (test code = 84 255) OK interval (test code = 172 266) QRSD [...] Emery MD (2064) on 03/01/2022 3:29:18 PM [facility] Pre/Post [id number] 20:29:23 Test Item Value Reference Range Interpretation Comments Ventricular rate (test 84 code = 253) Atrial rate (test code = 84 255) OK interval (test code = 172 266) QRSD [...] Emery MD (2064) on 03/01/2022 3:29:18 PM [facility] Pre/Post [id number] 20:29:23 Test Item Value Reference Range Interpretation Comments Ventricular rate (test 84 code = 253) Atrial rate (test code = 84 255) OK interval (test code = 172 266) QRSD [...] Emery MD (2064) on 03/01/2022 3:29:18 PM [facility] Pre/Post [id number] 20:29:23 Test Item Value Reference Range Interpretation Comments Ventricular rate (test 84 code = 253) Atrial rate (test code = 84 255) OK interval (test code = 172 266) QRSD [...] Emery MD (2064) on 03/01/2022 3:29:18 PM [facility] Pre/Post [id number] 20:29:23 Test Item Value Reference Range Interpretation Comments Ventricular rate (test 84 code = 253) Atrial rate (test code = 84 255) OK interval (test code = 172 266) QRSD [...] Emery MD (2064) on 03/01/2022 3:29:18 PM [facility] Pre/Post [id number] 20:29:23 Test Item Value Reference Range Interpretation Comments Ventricular rate (test 84 code = 253) Atrial rate (test code = 84 255) OK interval (test code = 172 266) QRSD [...] Emery MD (2064) on 03/01/2022 3:29:18 PM [facility] Pre/Post [id number] 20:29:23 Test Item Value Reference Range Interpretation Comments Ventricular rate (test 84 code = 253) Atrial rate (test code = 84 255) OK interval (test code = 172 266) QRSD [...] Emery MD (2064) on 03/01/2022 3:29:18 PM [facility] Pre/Post [id number] 20:29:23 Test Item Value Reference Range Interpretation Comments Ventricular rate (test 84 code = 253) Atrial rate (test code = 84 255) OK interval (test code = 172 266) QRSD [...] Emery MD (2064) on 03/01/2022 3:29:18 PM [facility] Pre/Post [id number] 20:29:23 Test Item Value Reference Range Interpretation Comments Ventricular rate (test 84 code = 253) Atrial rate (test code = 84 255) OK interval (test code = 172 266) QRSD [...] Emery MD (2064) on 03/01/2022 3:29:18 PM [facility] Pre/Post [id number] 20:29:23 Test Item Value Reference Range Interpretation Comments Ventricular rate (test 84 code = 253) Atrial rate (test code = 84 255) OK interval (test code = 172 266) QRSD [...] Emery MD (2064) on 03/01/2022 3:29:18 PM [facility] Pre/Post [id number] 20:29:23 Test Item Value Reference Range Interpretation Comments Ventricular rate (test 84 code = 253) Atrial rate (test code = 84 255) OK interval (test code = 172 266) QRSD [...] Emery MD (2064) on 03/01/2022 3:29:18 PM [facility] Pre/Post [id number] 20:29:23 Test Item Value Reference Range Interpretation Comments Ventricular rate (test 84 code = 253) Atrial rate (test code = 84 255) OK interval (test code = 172 266) QRSD [...] Emery MD (2064) on 03/01/2022 3:29:18 PM [facility] Pre/Post [id number] 20:29:23 Test Item Value Reference Range Interpretation Comments Ventricular rate (test code = 253) Atrial rate (test code = 255) OK interval (test code = 266) QRSD interval [...] (2064) on 03/01/2022 3:29:18 [facility] [Presence] in Respiratory specimen by TENZIN with probe [id number] 18:27:20 Test Item Value Reference Range Interpretation Comments SARS-CoV-2 (COVID-19) RNA Not detected [Presence] in Respiratory specimen by TENZIN with probe detection (test code = 44599-7) Whether patient is employed in a Unknown healthcare setting (test code = 88431-1) Whether the patient has symptoms Unknown related to condition of interest (test code = 20297-1) Whether the patient was Unknown hospitalized for condition of interest (test code = 29204-9) Whether the patient was admitted Unknown to intensive care unit (ICU) for condition of interest (test code = 20236-0) Whether patient resides in a Unknown congregate care setting (test code = 15501-0) status (test code = Unknown 01513-6) Date and time of symptom onset Unknown (test code = 08347-0) [facility] RNA [Presence] in Respiratory specimen by TENZIN with probe [id number] 01:00:31 Test Item Value Reference Range Interpretation Comments SARS-CoV-2 (COVID-19) RNA Not detected [Presence] in Respiratory specimen by TENZIN with probe detection (test code = 33767-6) Whether patient is employed in a Unknown healthcare setting (test code = 85425-5) Whether the patient has symptoms Unknown related to condition of interest (test code = 19729-7) Whether the patient was Unknown hospitalized for condition of interest (test code = 49959-5) Whether the patient was admitted Unknown to intensive care unit (ICU) for condition of interest (test code = 64403-3) Whether patient resides in a Unknown congregate care setting (test code = 92510-4) status (test code = Unknown 20793-2) Date and time of symptom onset Unknown (test code = 65168-7) [facility] A + B and SARS CoV + SARS CoV 2 Ag panel, [place], upper respiratory [id number] 10:40:00 Test Item Value Reference Range Interpretation Comments RAPID SARS COV (test code = RAPID negative SARS COV) RAPID FLU A (test code = RAPID FLU negative A) RAPID FLU B (test code = RAPID FLU negative B) [facility] - Serum or [id number] 06:34:00 Test Item Value Reference Range Interpretation Comments cholesterol level (test code = 169 mg/dL 150-200 cholesterol level) triglycerides level (test code = 93 mg/dL <150 triglycerides level) HDL cholesterol (test code = HDL 52 mg/dL >55 L cholesterol) LDL cholesterol direct (test code = 108 mg/dL <100 H LDL cholesterol direct) cholesterol risk ratio (test code = 3.250 cholesterol risk ratio) [facility] [Mass/volume] in [id number] 00:00:00 Test Item Value Reference Range Interpretation Comments Hemoglobin A1c [Mass/volume] in Blood 5.3 % 4.0-6.0 (test code = 48009-7) [facility] [Units/volume] in Serum or [id number] 00:00:00 Test Item Value Reference Range Interpretation Comments Thyrotropin [Units/volume] in 0.44 uIU/mL 0.36-3.74 Serum or Plasma (test code = 3016-3) [facility]
[2023-01-23] MEDS ORDERED: TERBUTALINE SULF 1 MG/1ML ONE (15:06)
[2023-01-23 15:15] LABS: Absolute Lymphocytes (CBC) 2.4 K/uL (0.7-4.9)
[2023-01-23] MEDS ORDERED: ONDANSETRON 4 MG/2 ML VIAL ONE (15:19)
[2023-01-23] MEDS ORDERED: MORPHINE 4 MG/ML SYR ONE (15:19)
[2023-01-23] MEDS ORDERED: Phenylephrine HCl 10 MG/ML 1 ML VIAL ONE (15:19)
[2023-01-23] MEDS ORDERED: NA CHLORIDE 0.9% 1,000 ML ONE (15:19)
[2023-01-23] MEDS ORDERED: LIDOCAINE 1% MPF 5 ML VIAL ONE (15:22)
[2023-01-23] MEDS ORDERED: BUPIVACAINE 0.5% PF 10 ML VIAL ONE (15:22)
[2023-01-23] MEDS ORDERED: WATER FOR INJ,STERILE 10 ML ONE (15:36)
[2023-01-23 15:43] LABS: Albumin 4.2 g/dL (3.4-5.0); Bilirubin Total 0.4 mg/dL (0.2-1.0); Potassium 3.8 mEq/L (3.5-5.1); Protein, Total 8.3 g/dL (6.4-8.2)
--- NOTE | 2023-01-23 15:58 | ER ---
Nurse's Notes [facility] Name: Francesco Avelar Age: 27 yrs Sex: Male : 1995 Arrival Date: 01/23/2023 Time: 14:31 Bed 6 Private MD: Diagnosis: Priapism, unspecified Presentation: 01/23 14:40 Chief complaint: Patient states: priapism since 0800 today , took Sudafed and iw terbutaline, did not help. Coronavirus screen: At this time, the client does not indicate any symptoms associated with coronavirus-19. Ebola Screen: Patient negative for fever greater than or equal to 101.5 degrees Fahrenheit, and additional compatible Ebola Virus Disease symptoms Patient denies exposure to infectious person. Patient denies travel to an Ebola-affected area in the 21 days before illness onset. No symptoms or risks identified at this time. Initial Sepsis Screen: Does the patient meet any 2 criteria? No. Patient's initial sepsis screen is negative. Does the patient have a suspected source of infection? No. Patient's initial sepsis screen is negative. Risk Assessment: Do you want to hurt yourself or someone else? Patient reports no desire to harm self or others. Onset of symptoms was January 23, 2023. 14:40 Method Of Arrival: Ambulatory iw 14:40 Acuity: MCKENZIE 3 iw Historical: - Allergies: 14:42 Imitrex; iw - PMHx: 14:42 adhd; Asthma; Bipolar disorder; priapism; spinal stenosis; iw - PSHx: 14:42 L5 S1 laminectomy; iw - Immunization history:: Client reports receiving the 2nd dose of the Covid vaccine. - Social history:: Smoking status: Patient reports the use of cigarette tobacco products. Screenin:00 [facility] ED Fall Risk Assessment (Adult) History of falling in the last 3 months, jl7 including since admission No falls in past 3 months (0 pts). Abuse screen: Denies threats or abuse. Denies injuries from another. Nutritional screening: No deficits noted. Tuberculosis screening: No symptoms or risk factors identified. Assessment: 14:45 General: Appears in no apparent distress. uncomfortable, Behavior is cooperative, jl7 anxious. Pain: Complains of pain in groin Pain currently is 10 out of 10 on a pain scale. Neuro: Level of Consciousness is awake, alert, obeys commands, Oriented to person, place, time, situation. Cardiovascular: Patient's skin is warm and dry. Respiratory: Airway is patent Respiratory effort is even, unlabored, Respiratory pattern is regular, symmetrical. : Reports priapism. Derm: Skin is pink, warm \T\ dry. 16:00 Reassessment: Patient appears in no apparent distress at this time. Patient states jl7 symptoms have improved. Vital Signs: 14:40 BP 125 / 77; Pulse 106; Resp 18; Temp 98.1; Pulse Ox 100% on R/A; iw 16:00 BP 130 / 64; Pulse 95; Resp 15; Pulse Ox 100% ; jl7 [place] Coma Score: 15:53 Eye Response: spontaneous(4). Motor Response: obeys commands(6). Verbal Response: linda oriented(5). Total: 15. NIH Stroke Scale Scores: 15:53 NIHSS Score: 0 linda ED Course: 14:31 Patient arrived in ED. am2 14:38 Peter Pina RN is Primary Nurse. jl7 14:39 Steve Whalen MD is Attending Physician. linda 14:42 Triage completed. iw 14:42 Arm band placed on. iw 15:09 Inserted saline lock: 20 gauge in left antecubital area, using aseptic technique. Blood hb collected. 15:10 Comprehensive Metabolic Panel Sent. hb 15:10 CBC with Diff Sent. hb 15:57 Minesh Vivas MD is Referral Physician. linda 15:57 Harpreet Beard MD is Referral Physician. linda 16:38 Patient has correct armband on for positive identification. Provided Education on: jl7 discharge. 16:38 injection. IV discontinued, intact, bleeding controlled, No redness/swelling at site. jl7 Pressure dressing applied. Administered Medications: 05:35 Drug: morphine IVP or IV 4 mg Route: IVP; Infused Over: 4 mins; Site: left antecubital; jl7 16:00 Follow up: Response: No adverse reaction; Pain is decreased jl7 15:30 Drug: NS 0.9% IV 1000 ml Route: IV; Rate: 1 bolus; Site: left antecubital; jl7 16:35 Follow up: Response: No adverse reaction; IV Status: Completed infusion; IV Intake: jl7 300ml 15:35 Drug: Ondansetron IVP 4 mg Route: IVP; Site: left antecubital; jl7 16:35 Follow up: Response: No adverse reaction jl7 15:40 Not Given (Patient Refused): Pseudoephedrine PO 120 mg PO once jl7 15:40 Not Given (Patient Refused): Terbutaline Sub-Q 0.5 mg Sub-Q once jl7 16:35 Not Given (Physician Discretion): Bupivacaine Infiltration (0.5 %) 5 ml 10 ml jl7 Infiltration once 16:35 Not Given (Physician Discretion): Lidocaine Infiltration (1 %) 5 ml 5 ml Infiltration jl7 once; to bedside 16:35 Drug: Ellerbe PO 10 mg-325 mg 1 tabs Route: PO; jl7 16:35 Follow up: Response: Medication administered at discharge. jl7 Medication: 16:00 VIS not applicable for this client. jl7 Intake: 16:35 IV: 300ml; Total: 300ml. jl7 Outcome: 15:58 Discharge ordered by . linda 16:38 Discharged to home ambulatory. jl7 16:38 Condition: stable 16:38 Discharge instructions given to patient, family, Instructed on discharge instructions, follow up and referral plans. Demonstrated understanding of instructions, follow-up care. 16:39 Patient left the ED. jl7 NIH Stroke Scale - NIH Stroke Score Date: 01/23/2023 Time: 15:53 Total Score = 0 10. Dysarthria (speech clarity - read or repeat words) - 0(Normal) 11. Extinction and Inattention (visual/tactile/auditory/spatial/personal) - 0(No abnormality) 1a. Level of Consciousness (LOC) - 0(Alert) 1b. Level of Consciousness (LOC) (Month \T\ Age) - 0(Both) 1c. LOC Commands (Open \T\ Closes Eyes/Knitting Inspector) - 0(Both) 2. Best Gaze (Lateral Gaze Paresis) - 0(Normal) 3. Visual Field Loss - 0(No visual loss) 4. Facial Palsy - 0(Normal) 5a. Left Arm: Motor (10-second hold) - 0(No drift) 5b. Right Arm: Motor (10-second hold) - 0(No drift) 6a. Left Leg: Motor (5-second hold - always test supine) - 0(No drift) 6b. Right Leg: Motor (5-second hold - always test supine) - 0(No drift) 7. Limb Ataxia (finger/nose \T\ heel/escalante - test with eyes open) - 0(Absent) 8. Sensory Loss (pinprick arms/legs/face) - 0(Normal) 9. Best Language: Aphasia (description/naming/reading) - 0(No aphasia) Initials: linda Signatures: Steve Whalen MD MD cha Williams, Irene, RN RN iw Baxter, Heather, RN RN hb Leal, Jahala, RN RN jl7 Eleanor Gallegos am2 Corrections: (The following items were deleted from the chart) 15:42 15:25 Bupivacaine Infiltration (0.5 %) 5 ml 10 ml Infiltration; administered by tammy munoz 15:42 15:25 Lidocaine Infiltration (1 %) 5 ml 5 ml Infiltration; administered by Dr. tammy hardy7
--- NOTE | 2023-01-23 15:58 | EDPHYS ---
Physician Documentation [facility] Name: Francesco Avelar Age: 27 yrs Sex: Male : 1995 Arrival Date: 01/23/2023 Time: 14:31 Bed 6 Private MD: Steve Morris HPI: 01/23 15:52 This 27 yrs old Male presents to ER via Ambulatory with complaints of Penile linda Problem. 15:52 The patient presents with tenderness, that is moderate. Onset: The symptoms/episode linda began/occurred this morning. Modifying factors: The symptoms are alleviated by nothing, the symptoms are aggravated by nothing. Associated signs and symptoms: The patient has no apparent associated signs or symptoms. Severity of symptoms: At their worst the symptoms were moderate, in the emergency department the symptoms are unchanged. The patient has experienced similar episodes in the past, multiple times. Historical: - Allergies: 14:42 Imitrex; iw - PMHx: 14:42 adhd; Asthma; Bipolar disorder; priapism; spinal stenosis; iw - PSHx: 14:42 L5 S1 laminectomy; iw - Immunization history:: Client reports receiving the 2nd dose of the Covid vaccine. - Social history:: Smoking status: Patient reports the use of cigarette tobacco products. ROS: 15:53 Constitutional: Negative for fever, chills, and weight loss, Eyes: Negative for injury, linda pain, redness, and discharge, ENT: Negative for injury, pain, and discharge, Neck: Negative for injury, pain, and swelling, Cardiovascular: Negative for chest pain, palpitations, and edema, Respiratory: Negative for shortness of breath, cough, wheezing, and pleuritic chest pain, Abdomen/GI: Negative for abdominal pain, nausea, vomiting, diarrhea, and constipation, Back: Negative for injury and pain, MS/Extremity: Negative for injury and deformity, Skin: Negative for injury, rash, and discoloration, Neuro: Negative for headache, weakness, numbness, tingling, and seizure, Psych: Negative for depression, anxiety, suicide ideation, homicidal ideation, and hallucinations, Allergy/Immunology: Negative for hives, rash, and allergies, Endocrine: Negative for neck swelling, polydipsia, polyuria, polyphagia, and marked weight changes, Hematologic/Lymphatic: Negative for swollen nodes, abnormal bleeding, and unusual bruising. 15:53 : Positive for penile pain, of the head of penis and shaft of penis. Exam: 15:53 Constitutional: This is a well developed, well nourished patient who is awake, alert, linda and in no acute distress. Head/Face: Normocephalic, atraumatic. Eyes: Pupils equal round and reactive to light, extra-ocular motions intact. Lids and lashes normal. Conjunctiva and sclera are non-icteric and not injected. Cornea within normal limits. Periorbital areas with no swelling, redness, or edema. ENT: Nares patent. No nasal discharge, no septal abnormalities noted. Tympanic membranes are normal and external auditory canals are clear. Oropharynx with no redness, swelling, or masses, exudates, or evidence of obstruction, uvula midline. Mucous membranes moist. Neck: Trachea midline, no thyromegaly or masses palpated, and no cervical lymphadenopathy. Supple, full range of motion without nuchal rigidity, or vertebral point tenderness. No Meningismus. Chest/axilla: Normal chest wall appearance and motion. Nontender with no deformity. No lesions are appreciated. Cardiovascular: Regular rate and rhythm with a normal S1 and S2. No gallops, murmurs, or rubs. Normal PMI, no JVD. No pulse deficits. Respiratory: Lungs have equal breath sounds bilaterally, clear to auscultation and percussion. No rales, rhonchi or wheezes noted. No increased work of breathing, no retractions or nasal flaring. Abdomen/GI: Soft, non-tender, with normal bowel sounds. No distension or tympany. No guarding or rebound. No evidence of tenderness throughout. Back: No spinal tenderness. No costovertebral tenderness. Full range of motion. Skin: Warm, dry with normal turgor. Normal color with no rashes, no lesions, and no evidence of cellulitis. MS/ Extremity: Pulses equal, no cyanosis. Neurovascular intact. Full, normal range of motion. Neuro: Awake and alert, GCS 15, oriented to person, place, time, and situation. Cranial nerves II-XII grossly intact. Motor strength 5/5 in all extremities. Sensory grossly intact. Cerebellar exam normal. Normal gait. Psych: Awake, alert, with orientation to person, place and time. Behavior, mood, and affect are within normal limits. 15:53 : CVA tenderness, is absent, Male external genitalia: Patient is not circumisioned. tenderness, of the head of penis and shaft of penis is noted, Bladder: is normal, Sexual behavior: the patient is not sexually active. Vital Signs: 14:40 BP 125 / 77; Pulse 106; Resp 18; Temp 98.1; Pulse Ox 100% on R/A; iw 16:00 BP 130 / 64; Pulse 95; Resp 15; Pulse Ox 100% ; jl7 NIH Stroke Scale Scores: 15:53 NIHSS Score: 0 linda [place] Coma Score: 15:53 Eye Response: spontaneous(4). Motor Response: obeys commands(6). Verbal Response: linda oriented(5). Total: 15. Procedures: 15:59 Performed PENILE INJECTION, 1 CC PHENYLEPHRINE 1MG, IN 9 CC SALINE, GOOD REDUCTION. linda MDM: 14:39 Patient medically screened. linda 15:55 Differential diagnosis: nonspecific abdominal pain, UTI, urinary retention, linda prostatitis, urethritis. Data reviewed: vital signs, nurses notes, lab test result(s), CBC, electrolytes, hepatic panel. Consideration of Admission/Observation Escalation of care including admission/observation considered. I considered the following discharge prescriptions or medication management in the emergency department Medications were administered in the Emergency Department. See MAR. Test considered but Not performed: EKG: NO EKG. Historians other than the Patient: Family Member: MOM, INFORMED. Care significantly affected by the following chronic conditions: SPINAL STENOSIS, ASTHMA, BIPOLAR, PRIAPISM. Counseling: I had a detailed discussion with the patient and/or guardian regarding: the historical points, exam findings, and any diagnostic results supporting the discharge/admit diagnosis, lab results, radiology results, the need for outpatient follow up, for definitive care, a family practitioner, a neurosurgeon, a urologist. 01/23 14:56 Order name: CBC with Diff; Complete Time: 16:33 [facility] 01/23 14:56 Order name: Comprehensive Metabolic Panel; Complete Time: 16:33 [facility] 01/23 14:56 Order name: Oxygen: 2 liters; Complete Time: 15:10 [facility] 01/23 15:10 Order name: Misc. Order: PHENYLEPHRINE 1 ML(10MG/ML); Complete Time: 15:40 [facility] 01/23 15:10 Order name: Dressing - Wound; Complete Time: 15:40 [facility] 01/23 15:10 Order name: Gloves, Sterile; Complete Time: 15:40 linda 01/23 15:10 Order name: Setup Suture Tray; Complete Time: 15:40 linda Administered Medications: 05:35 Drug: morphine IVP or IV 4 mg Route: IVP; Infused Over: 4 mins; Site: left antecubital; jl7 16:00 Follow up: Response: No adverse reaction; Pain is decreased jl7 15:30 Drug: NS 0.9% IV 1000 ml Route: IV; Rate: 1 bolus; Site: left antecubital; jl7 16:35 Follow up: Response: No adverse reaction; IV Status: Completed infusion; IV Intake: jl7 300ml 15:35 Drug: Ondansetron IVP 4 mg Route: IVP; Site: left antecubital; jl7 16:35 Follow up: Response: No adverse reaction jl7 15:40 Not Given (Patient Refused): Pseudoephedrine PO 120 mg PO once jl7 15:40 Not Given (Patient Refused): Terbutaline Sub-Q 0.5 mg Sub-Q once jl7 16:35 Not Given (Physician Discretion): Bupivacaine Infiltration (0.5 %) 5 ml 10 ml jl7 Infiltration once 16:35 Not Given (Physician Discretion): Lidocaine Infiltration (1 %) 5 ml 5 ml Infiltration jl7 once; to bedside 16:35 Drug: Vincent PO 10 mg-325 mg 1 tabs Route: PO; jl7 16:35 Follow up: Response: Medication administered at discharge. jl7 Disposition Summary: 01/23/23 15:58 Discharge Ordered Location: Home linda Problem: new linda Symptoms: have improved linda Condition: Stable linda Diagnosis - Priapism, unspecified linda Followup: linda - With: Private Physician - When: 2 - 3 days - Reason: Recheck today's complaints, Continuance of care, Re-evaluation by your physician Followup: linda - With: Minesh Vivas MD - When: 2 - 3 days - Reason: Recheck today's complaints, Re-evaluation by your physician Followup: linda - With: Harpreet Beard MD - When: 2 - 3 days - Reason: Recheck today's complaints, Re-evaluation by your physician Discharge Instructions: - Discharge Summary Sheet linda - Priapism linda Forms: - Medication Reconciliation Form linda - Thank You Letter linda - Antibiotic Education linda - Prescription Opioid Use linda - Patient Portal Instructions linda NIH Stroke Scale - NIH Stroke Score Date: 01/23/2023 Time: 15:53 Total Score = 0 10. Dysarthria (speech clarity - read or repeat words) - 0(Normal) 11. Extinction and Inattention (visual/tactile/auditory/spatial/personal) - 0(No abnormality) 1a. Level of Consciousness (LOC) - 0(Alert) 1b. Level of Consciousness (LOC) (Month \T\ Age) - 0(Both) 1c. LOC Commands (Open \T\ Closes Eyes/Sas Analyst) - 0(Both) 2. Best Gaze (Lateral Gaze Paresis) - 0(Normal) 3. Visual Field Loss - 0(No visual loss) 4. Facial Palsy - 0(Normal) 5a. Left Arm: Motor (10-second hold) - 0(No drift) 5b. Right Arm: Motor (10-second hold) - 0(No drift) 6a. Left Leg: Motor (5-second hold - always test supine) - 0(No drift) 6b. Right Leg: Motor (5-second hold - always test supine) - 0(No drift) 7. Limb Ataxia (finger/nose \T\ heel/escalante - test with eyes open) - 0(Absent) 8. Sensory Loss (pinprick arms/legs/face) - 0(Normal) 9. Best Language: Aphasia (description/naming/reading) - 0(No aphasia) Initials: [facility] Signatures: Dispatcher [employer] Steve Arredondo MD MD cha Williams, Irene, RN Peter Garcia RN RN jl7
[2023-01-23] MEDS ORDERED: HYDROCODONE/APAP 10/325 TAB ONE (16:38)
[2023-01-23 17:09] VITALS: TEMP 98.1; O2SAT 100
[2023-01-23 17:15] VITALS: BP 130/64
== END 2023-01-23 16:39 | disposition home or self-care (01) ==
LOC: ER 14:31
DX: N48.30 Priapism, unspecified (principal)
CPT/HCPCS: 96361; 85025; 36415; 80053; 96375; 96374; 99284; J3105; J2001; J2371; J2405; J7030

== ENCOUNTER 2023-02-26 19:26 | Emergency (ER) | payer BC, OTHER ==
--- OUTSIDE RECORDS SUMMARY | 2023-02-26 19:35 | XMS REPORT | Continuity of Care Document ---
:1995 Author Organization [facility] t Address [address] [facility] [place]. [address] [place] [address] Support Name Relationship Address Phone BALA CLARK Unavailable [address] [phone] [place] [address] GREGORY DUMONT Unavailable [address] [phone] [place] [address] PRISCILA MAGANA MD Emergency Provider [address] [place] [address] PHYSICIAN, NO Primary Care Physician Unavailable Unavailab CLAIR Art Next of Kin [address] [place] [address] MD PRISCILA MAGANA Emergency Provider [address] [place] [address] MD [facility] Primary Care Physician [address] [place] [place] [address] MD CELSA MUNGUIA Emergency Provider [address] [place] [address] MD BARBARA VELAZQUEZ Emergency Provider [address] [place] [address] MD SHI ANAYA Emergency Provider [address] [place] [address] DO ABRAHAM MCCRACKEN Admitting Provider [address] [place] [address] MD HARRISON RICO Emergency Provider [address] [phone] [place] [address] MD ALEXA TORRES Emergency Provider [address] [place] [address] MD JASON DUNAWAY Emergency Provider [address] [place] [address] [phone] [place] [address] Care Team Providers Name Role Phone Ronnell [...] Date S monie [place] [id number] 2014 (PPO) 00:00:00 [facility] [id number] 2019 [place] 00:00:00 ([place] [id number] [place] [facility] - [id number] [facility] Problems Condition Condition Condition Status Onset [...] Added automatic ally from request for surgery [id number] Priapism Priapism Disease Active Metho di 8-17 [...] Unknown Commo n porras porras Spirit - [facility] Imitrex Allergy Active [facility] Family History Family Member Diagnosis Comments Start Date Stop Date Source Natural father Doan's palsy [facility] Natural mother Fibromyalgia [facility] Social History Social Habit Start Date Stop Date Quantity Comments Source Gender [facility] History of Tobacco Current Smoker [facility] Spirit - Use [facility] Alcohol intake 2022-03-03 2022-03-03 Current drinker [facility] 00:00:00 00:00:00 of alcohol Hospital (finding) History of Social 2022-03-03 2022-03-[address] function 00:00:00 00:00:00 Hospital Tobacco use and 2022-03-01 2022-03-01 Smokeless [facility] exposure 00:00:00 00:00:00 tobacco non-user Hospital Alcohol Comment 2022-03-01 2022-03-01 EVERY OTHER Methodis t 00:00:00 00:00:00 [facility] Sex Assigned At [birth year] [facility] 00:00[facility] 00[facility]00 Hospital Smoking Status Start Date Stop Date Source Heavy Tobacco Smoker [facility] Current Smoker 2022-05-19 00:00:00 Common Spiri t - [facility] Medications Ordered Filled Start Stop [...] 2 l (two) times a day. gabapentin 202-0 Yes 600mg QD Take 2 Meth joanna [...] capsule 10 total) by l mouth daily. budesonide- 2022-0 Yes 2{puff} Q.5D Inhale 2 [...] Hos félix 10 by mouth l daily. hydrOXYzine Yes 25mg QD Take 1 Meth joanna (ATARAX) 25 8-23 tablet (25 st MG tablet 11:57: mg total) Hos félix 10 by mouth l daily. levalbutero Yes 2{puff} Q2D Inhale 2 Methodi l (XOPENEX 8-[address] HFA) 45 11:57: every Hospita mcg/actuati 10 other day. l on inhaler levalbutero Yes 2{puff} Q2D Inhale 2 Methodi [...] up to 5 days .acute pain. traMADoL 57976 50mg Q6H Take 1 Metho di (ULTRAM) 50 8-19 08-25 tablet (50 s t mg tablet 00:00: 04:59 mg total) Ho spita 00 :00 by mouth l every 6 (six) hours as needed for moderate pain for up to 5 days .acute pain. traMADoL 50899 50mg Q6H Take 1 Metho di (ULTRAM) 50 8-19 08-25 tablet (50 s t mg tablet 00:00: 04:59 mg total) Ho spita 00 :00 by mouth l every 6 (six) hours as needed for moderate pain for up to 5 days .acute pain. traMADoL 73656 50mg Q6H Take 1 Metho di (ULTRAM) 50 8-19 08-25 tablet (50 s t mg tablet 00:00: 04:59 mg total) Ho spita 00 :00 by mouth l every 6 (six) hours as needed for moderate pain for up to 5 days .acute pain. traMADoL 02490 50mg Q6H Take 1 Metho di (ULTRAM) 50 8-19 08-25 tablet (50 s t mg tablet 00:00: 04:59 mg total) Ho spita 00 :00 by mouth l every 6 (six) hours as needed for moderate pain for up to 5 days .acute pain. traMADoL 19772 50mg Q6H Take 1 Metho di (ULTRAM) 50 8-19 08-25 tablet (50 s t mg tablet 00:00: 04:59 mg total) Ho spita 00 :00 by mouth l every 6 (six) hours as needed for moderate pain for up to 5 days .acute pain. traMADoL 2021- 68050 50mg Q6H Take 1 Metho di (ULTRAM) 50 8-19 08-25 tablet (50 s t mg tablet 00:00: 04:59 mg total) Ho spita 00 :00 by mouth l every 6 (six) hours as needed for moderate pain for up to 5 days .acute pain. traMADoL 2021- 71060 50mg Q6H Take 1 Metho di (ULTRAM) [...] up to 5 days .acute pain. traMADoL 48714 50mg Q6H Take 1 Metho di (ULTRAM) [...] up to 5 days .acute pain. traMADoL 06827 50mg Q6H Take 1 Metho di (ULTRAM) 50 8-19 08-25 tablet (50 s t mg tablet 00:00: 04:59 mg total) Ho spita 00 :00 by mouth l every 6 (six) hours as needed for moderate pain for up to 5 days .acute pain. traMADoL 25137 50mg Q6H Take 1 Metho di (ULTRAM) 50 8-19 08-25 tablet (50 s t mg tablet 00:00: 04:59 mg total) Ho spita 00 :00 by mouth l every 6 (six) hours as needed for moderate pain for up to 5 days .acute pain. traMADoL 72000 50mg Q6H Take 1 Metho di (ULTRAM) 50 8-19 08-25 tablet (50 s t mg tablet 00:00: 04:59 mg total) Ho spita 00 :00 by mouth l every 6 (six) hours as needed for moderate pain for up to 5 days .acute pain. traMADoL 81744 50mg Q6H Take 1 Metho di (ULTRAM) 50 8-19 08-25 tablet (50 s t mg tablet 00:00: 04:59 mg total) Ho spita 00 :00 by mouth l every 6 (six) hours as needed for moderate pain for up to 5 days .acute pain. traMADoL 11279 50mg Q6H Take 1 Metho di (ULTRAM) 50 8-19 08-25 tablet (50 s t mg tablet 00:00: 04:59 mg total) Ho spita 00 :00 by mouth l every 6 (six) hours as needed for moderate pain for up to 5 days .acute pain. traMADoL 41678 50mg Q6H Take 1 Metho di (ULTRAM) 50 8-19 08-25 tablet (50 s t mg tablet 00:00: 04:59 mg total) Ho spita 00 :00 by mouth l every 6 (six) hours as needed for moderate pain for up to 5 days .acute pain. traMADoL 2022-0 2022- [place] [address] 50mg Q6H Take 1 Metho di (ULTRAM) 50 8-19 08-25 tablet (50 s t mg tablet 00:00: 04:59 mg total) Ho spita 00 :00 by mouth l every 6 (six) hours as needed for moderate pain for up to 5 days .acute pain. traMADoL 2021- No 28755 50mg Q6H Take 1 Metho di (ULTRAM) 50 8-19 08-25 tablet (50 s t mg tablet 00:00: 04:59 mg total) Ho spita 00 :00 by mouth l every 6 (six) hours as needed for moderate pain for up to 5 days .acute pain. traMADoL 2021-2021- [place] [address] 50mg Q6H Take 1 Metho di (ULTRAM) 50 8-19 08-25 tablet (50 s t mg tablet 00:00: 04:59 mg total) Ho spita 00 :00 by mouth l every 6 (six) hours as needed for moderate pain for up to 5 days .acute pain. traMADoL 2021- No [id number] 50mg Q6H Take 1 Metho di (ULTRAM) [...] 2022- No 600mg Q6H Take 1 Meth joanan (ADVIL) 600 8-18 08-[address] MG [...] (Back pain) for up to 7 days. Abilif2021- No INJECT ONE Met [facility] Maintena 5-18 [...] l extended ONCE A rel syring MONTH Abilif2021- No INJECT ONE [facility] Maintena 5-18 [...] Abilify 0 2021- No INJECT ONE [facility]aint[facility] 5-18 08-17 (1) UNIT st 400 mg 00:00: 00:00 INTO THE Hospit a suspension, 00 :00 MUSCLE l extended ONCE A rel syring MONTH Abilify 2022- No INJECT ONE [facility] Maintena [...] Name Td (adult) Td (adult) 2022-11-26 Completed [place] preservative free preservative free 12:13:00 [facility] JoinMe@ COVID-19 MRNA 2020-10-16 Completed [facility] VACCINATION 00:00:00 [facility] COVID19 MRNA 2020-10-16 Completed [facility] odist VACCINATION 00:00:00 [facility] JoinMe@ COVID-19 MRNA 2020-10-16 Completed [facility] odist VACCINATION 00:00:00 [facility] PFIZER COVID-19 MRNA 2020-10-16 Completed [facility] odist VACCINATION 00:00:00 [facility] PFIZER COVID-19 MRNA 2020-10-16 Completed [facility] odist VACCINATION 00:00:00 [facility] PFIZER COVID-19 MRNA 2020-10-16 Completed [facility] odist VACCINATION 00:00:00 [facility] PFIZER COVID-19 MRNA 2020-10-16 Completed [facility] odist VACCINATION 00:00:00 [facility] PFIZER COVID-19 MRNA 2020-10-16 Completed [facility] odist VACCINATION 00:00:00 [facility] PFIZER COVID-19 MRNA 2020-10-16 Completed [facility] odist VACCINATION 00:00:00 [facility] PFIZER COVID-19 MRNA 2020-10-16 Completed [facility] odist VACCINATION 00:00:00 [facility] PFIZER COVID-19 MRNA 2020-10-16 Completed Meth odist VACCINATION 00:00:00 [facility] PFIZER COVID-19 MRNA 2020-10-16 Completed [facility] odist VACCINATION 00:00:00 [facility] PFIZER COVID-19 MRNA 2020-10-16 Completed [facility] odist VACCINATION 00:00:00 [facility] PFIZER COVID-19 MRNA 2020-10-16 Completed [facility] odist VACCINATION 00:00:00 [facility] PFIZER COVID-19 MRNA 2020-10-16 Completed Meth odist VACCINATION 00:00:00 [facility] PFIZER COVID-19 MRNA 2020-10-16 Completed Meth odist VACCINATION 00:00:00 [facility] PFIZER COVID-19 MRNA 2020-10-16 Completed [facility] odist VACCINATION 00:00:00 [facility] PFIZER COVID-19 MRNA 2020-10-16 Completed Meth odist VACCINATION 00:00:00 [facility] PFIZER COVID-19 MRNA 2020-10-16 Completed Meth odist VACCINATION 00:00:00 [facility] PFIZER COVID-19 MRNA 2020-10-16 Completed Meth odist VACCINATION 00:00:00 [facility] PFIZER COVID-19 MRNA 2020-10-16 Completed Meth odist VACCINATION 00:00:00 [facility] PFIZER COVID-19 MRNA 2020-10-16 Completed Meth odist VACCINATION 00:00:00 [facility] PFIZER COVID-19 MRNA 2020-10-16 Completed Meth odist VACCINATION 00:00:00 [facility] PFIZER COVID-19 MRNA 2020-10-16 Completed Meth odist VACCINATION 00:00:00 [facility] PFIZER COVID-19 MRNA 2020-10-16 Completed [facility] odist VACCINATION 00:00:00 [facility] PFIZER COVID-19 MRNA 2020-10-16 Completed [facility] od[facility] VACCINATION 00:00:00 Hospital PFIZER COVID-19 MRNA 2020-10-16 Completed Meth odist VACCINATION 00:00:00 [facility] PFIZER COVID-19 MRNA 2020-10-16 Completed Meth odist VACCINATION 00:00:00 [facility] PFIZER COVID-19 MRNA 2020-10-16 Completed Meth odist VACCINATION 00:00:00 [facility] PFIZER COVID-19 MRNA 2020-10-16 Completed Meth odist VACCINATION 00:00:00 [facility] PFIZER COVID-19 MRNA 2020-10-16 Completed Meth odist VACCINATION 00:00:00 [facility] COVID-19, mRNA, COVID-19, mRNA, 2020-10-16 Completed Adryan ulloa LNP-S, PF, 30 LNP-S, PF, 30 00:00:00 Medical Group mcg/0.3 mL dose mcg/0.3 mL dose (Pfizer-BioNTech) - ([employer]) - ML ML PFIZER COVID-19 MRNA 2020-09-25 Completed Meth odist VACCINATION 00:00:00 [facility] PFIZER COVID-19 MRNA 2020-09-25 Completed [facility] od[facility] VACCINATION 00:00:00 [facility] PFIZER COVID-19 MRNA 2020-09-25 Completed Meth odist VACCINATION 00:00:00 [facility] PFIZER COVID-19 MRNA 2020-09-25 Completed Meth odist VACCINATION 00:00:00 [facility] PFIZER COVID-19 MRNA 2020-09-25 Completed Meth odist VACCINATION 00:00:00 [facility] PFIZER COVID-19 MRNA 2020-09-25 Completed [facility] odist VACCINATION 00:00:00 [facility] PFIZER COVID-19 MRNA 2020-09-25 Completed [facility] odist VACCINATION 00:00:00 [facility] PFIZER COVID-19 MRNA 2020-09-25 Completed [facility] odist VACCINATION 00:00:00 [facility] PFIZER COVID-19 MRNA 2020-09-25 Completed Meth odist VACCINATION 00:00:00 [facility] PFIZER COVID-19 MRNA 2020-09-25 Completed Meth odist VACCINATION 00:00:00 [facility] PFIZER COVID-19 MRNA 2020-09-25 Completed Meth odist VACCINATION 00:00:00 [facility] PFIZER COVID-19 MRNA 2020-09-25 Completed Meth odist VACCINATION 00:00:00 [facility] PFIZER COVID-19 MRNA 2020-09-25 Completed Meth odist VACCINATION 00:00:00 [facility] PFIZER COVID-19 MRNA 2020-09-25 Completed Meth odist VACCINATION 00:00:00 [facility] PFIZER COVID-19 MRNA 2020-09-25 Completed Meth odist VACCINATION 00:00:00 [facility] PFIZER COVID-19 MRNA 2020-09-25 Completed Meth odist VACCINATION 00:00:00 [facility] PFIZER COVID-19 MRNA 2020-09-25 Completed Meth odist VACCINATION 00:00:00 [facility] PFIZER COVID-19 MRNA 2020-09-25 Completed [facility] odist VACCINATION 00:00:00 [facility] PFIZER COVID-19 MRNA 2020-09-25 Completed Meth odist VACCINATION 00:00:00 [facility] PFIZER COVID-19 MRNA 2020-09-25 Completed Meth odist VACCINATION 00:00:00 [facility] PFIZER COVID-19 MRNA 2020-09-25 Completed Meth odist VACCINATION 00:00:00 [facility] PFIZER COVID-19 MRNA 2020-09-25 Completed Meth odist VACCINATION 00:00:00 [facility] PFIZER COVID-19 MRNA 2020-09-25 Completed Meth odist VACCINATION 00:00:00 [facility] PFIZER COVID-19 MRNA 2020-09-25 Completed Meth odist VACCINATION 00:00:00 [facility] PFIZER COVID-19 MRNA 2020-09-25 Completed Meth odist VACCINATION 00:00:00 [facility] PFIZER COVID-19 MRNA 2020-09-25 Completed [facility] odist VACCINATION 00:00:00 [facility] PFIZER COVID-19 MRNA 2020-09-25 Completed [facility] odist VACCINATION 00:00:00 [facility] PFIZER COVID-19 MRNA 2020-09-25 Completed Meth odist VACCINATION 00:00:00 [facility] PFIZER COVID-19 MRNA 2020-09-25 Completed [facility] odist VACCINATION 00:00:00 [facility] PFIZER COVID-19 MRNA 2020-09-25 Completed [facility] odist VACCINATION 00:00:00 [facility] PFIZER COVID-19 MRNA 2020-09-25 Completed Meth odist VACCINATION 00:00:00 [facility] COVID-19, mRNA, COVID-19, mRNA, 2020-09-25 Completed Cornelius laila LNP-S, PF, 30 LNP-S, PF, 30 00:00:00 Medical Group mcg/0.3 mL dose mcg/0.3 mL dose (Refer.comBioNTPhloronol) - ([employer]) - ML ML influenza, influenza, 2018-05-11 Completed [facility] injectable, injectable, 00:00:00 [facility] Grou p quadrivalent, quadrivalent, preservative free - preservative free - ML ML influenza, seasonal, influenza, 2017-06-27 Completed Cornelius laila injectable, seasonal, 00:00:00 Medical Group preservative free - injectable, ML preservative free - ML DTaP, unspecified DTaP, unspecified 1998-10-20 Completed [facility] formulation - ML formulation - ML 00:00:00 Me dical Group Hib (PRP-T) - ML Hib (PRP-T) - ML 1998-10-20 Completed [place] 00:00:[facility] varicella - ML varicella - ML 1998-07-10 Completed [facility] 00:00:00 [facility] Group MMR - ML MMR - ML 1998-07-10 Completed [facility] 00:00:00 [facility] DTaP, unspecified DTaP, unspecified 1997 Completed [place] formulation - ML formulation - ML 00:00:00 Me dical Group Hep B, adolescent or Hep B, adolescent 1997 Completed [facility] pediatric - ML or pediatric - ML 00:00:00 Med ical Group OPV - ML OPV - ML 1995 Completed [facility] 00:00:00 [facility] Hib, unspecified Hib, unspecified 1997 Completed [place] formulation - ML formulation - ML 00:00:00 Me dical Group DTaP, unspecified DTaP, unspecified 1997 Completed [place] formulation - ML formulation - ML 00:00:00 Me dical Group OPV - ML OPV - ML 1997 Completed [facility] 00:00:00 [facility] Hib, unspecified Hib, unspecified 1997 Completed [place] formulation - ML formulation - ML 00:00:00 Me dical Group DTaP, unspecified DTaP, unspecified 1997 Completed [place] formulation - ML formulation - ML 00:00:00 Me dical Group OPV - ML OPV - ML 1997 Completed [facility] 00:00:00 [facility] Hib, unspecified Hib, unspecified 1997 Completed [place] formulation - ML formulation - ML 00:00:00 Me dical Group Hep B, adolescent or Hep B, adolescent 1997 Completed [facility] - ML or pediatric - ML 00:00:00 Med ical Group Hep B, adolescent or Hep B, adolescent 1997 Completed [facility] - ML or pediatric - ML 00:00:00 Med ical Group Vital Signs Vital Name Observation Time Observation Value Comments Source BP Diastolic 2022-11-25 00:00:00 82 mm[Hg] [facility] Height 2022-11-25 00:00:00 71 [in_i] [facility] BMI (Body Mass 2022-11-25 00:00:00 31.7 kg/m2 [facility] Medical Index) Group BP Systolic 2022-11-25 00:00:00 128 mm[Hg] [facility] Body Weight 2022-11-25 00:00:00 3632 [oz_av] [facility] BP Diastolic 2022-11-17 00:00:00 68 mm[Hg] [facility] Height 2022-11-17 00:00:00 71 [in_i] [facility] BMI (Body Mass 2022-11-17 00:00:00 32 kg/m2 [facility] Medical Index) Group BP Systolic 2022-11-17 00:00:00 [...] Medical Group height 2022-05-19 10:30:00 71 [in_i] [facility] weight 2022-05-19 10:30:00 254.6 [lb_av] [facility] temperature 2022-05-19 10:30:00 97.6 [degF] [facility] bmi 2022-05-19 10:30:00 35.51 kg/m2 [facility] oximetry 2022-05-19 10:30:00 98 % [facility] respiratory rate 2022-05-19 10:30:00 18 /min [facility] blood pressure 2022-05-19 10:30:00 35 mm[Hg] [facility] - systolic [facility] blood pressure 2022-05-19 10:30:00 78 mm[Hg] Common [facility] - diastolic [facility] BP Diastolic 2022-03-09 00:00:00 77 mm[Hg] [facility] Height 2022-03-09 00:00:00 71 [in_i] [facility] BMI (Body Mass 2022-03-09 00:00:00 35.6 kg/m2 [facility] Medical Index) Group BP Systolic 2022-03-09 00:00:00 122 mm[Hg] [facility] Body Weight 2022-03-09 00:00:00 4078.4 [oz_av] [facility] BP Diastolic 2021-11-06 00:00:00 83 mm[Hg] [facility] Height 2021-11-06 00:00:00 71 [in_i] [facility] BMI (Body Mass 2021-11-06 00:00:00 35 kg/m2 [facility] Medical Index) Group BP Systolic 2021-11-06 00:00:00 127 mm[Hg] [facility] Body Weight 2021-11-06 00:00:00 4020 [oz_av] [facility] Height 2021-09-14 00:00:00 71 [in_i] [facility] BMI (Body Mass 2021-09-14 00:00:00 34.6 kg/m2 [facility] Medical Index) Group Body Weight 2021-09-14 00:00:00 3968 [oz_av] [facility] BP Diastolic 2021-03-26 00:00:00 75 mm[Hg] [facility] Height 2021-03-26 00:00:00 71 [in_i] [facility] BMI (Body Mass 2021-03-26 00:00:00 31.1 kg/m2 [facility] Medical Index) Group BP Systolic 2021-03-26 00:00:00 [...] pressure Diastolic blood 2022-03-02 15:38:00 67 mm[facility]Hg[facility] pressure Heart rate 2022-03-02 15:38:00 63 /min [facility] Res[facility] rate 2022-03-02 15:38:00 16 /min [facility] Oxygen saturation in 2022-03-02 15:38:00 97 /min [facility] Arterial blood by Pulse oximetry Body temperature 2022-03-02 15:30:00 36.33 Elle [facility] Body height 2022-03-01 15:26:00 180.3 cm [facility] Body weight 2022-03-01 15:26:00 115.123 kg [facility] BMI 2022-03-01 15:26:00 35.40 kg/m2 [facility] Procedures Procedure Date / Time Performing Clinician Source Performed US, scrotum 2022-11-17 00:00:00 [facility] dical [facility] US, duplex, penis, 2022-03-09 00:00:00 [facility] OR [place] < 1 HOUR 2022-03-02 18:31:17 Maynor Romero ospital 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 SPINAE [place] AN ELECTIVE 2022-03-02 12:35:00 Mason Douglas [facility] ENDOTRACHEAL AIRWAY LAMINECTOMY, LUMBAR 2022-03-02 12:29:00 Maynor Romero [facility] POC GLUCOSE 2022-03-02 11:43:00 Maynor Romero ospital Back Surgery 2022-03-02 00:00:00 [facility] dical [facility] XR CHEST 2 VW 2022-03-01 17:28:02 Maynor Romero [facility]spital ECG PRE/POST OP 2022-03-01 16:38:21 Maynor Romero [facility] HEMOGLOBIN A1C 2022-03-01 16:18:00 [facility]-19 QUALITATIVE 2022-03-01 15:48:00 [facility] RT-PCR CBC WITH PLATELET AND 2022-03-01 15:48:[address] [facility] DIFFERENTIAL PARTIAL THROMBOPLASTIN 2022-03-01 15:48:00 Maynor Romero [facility] TIME (PTT) PROTHROMBIN TIME WITH INR 2022-03-01 15:48:00 Maynor Romero [facility] CT POST MYELOGRAM LUMBAR 2022-02-25 18:14:[address] [facility] IR MYELOGRAM LUMB INCL 2022-02-25 17:55:00 [facility] INJ W S&I COVID-19 QUALITATIVE 2022-02-24 22:40:00 [facility] RT-PCR COMPREHENSIVE METABOLIC 2022-02-24 22:40:00 Federico Shetty [facility] PANEL CBC WITH PLATELET AND 2022-02-24 22:40:00 [facility] DIFFERENTIAL TROPONIN T 2022-02-24 22:40:00 [facility] B NATRIURETIC PEPTIDE 2022-02-24 22:40:00 [facility] ESTIMATED GFR 2022-02-24 22:40:00 [facility] GENERAL 2022-02-24 22:27:14 Sen[facility] CT SPINE EXTERNAL STUDY 2022-02-12 16:40:33 Maynor Romero [facility] XR ABDOMEN 2 VW AP W 2021-12-18 16:48:33 [facility]/OR DECUBITUS XR LUMBAR SPINE COMPLETE 2021-12-18 15:33:[address] [facility] W BENDING XR SPINE EXTERNAL STUDY 2021-08-10 17:26:30 Maynor Romero [facility] XR, lumbar spine 2021-03-10 00:00:00 Myla morales Group Plan of Care Planned Activity Planned Date Details Comments Source Future Scheduled Test 2023-02-14 Pneumococcal Vaccine: [facility] 07:55:29 Pediatrics (0 to 5 Years) and At-Risk Patients (6 to 64 Years) (1 - PCV) [code = Pneumococcal Vaccine: Pediatrics (0 to 5 Years) and At-Risk Patients (6 to 64 Years) (1 - PCV)] Future Scheduled Test 2023-02-14 Hepatitis C screening [facility] 07:55:29 (procedure) [code = [id number]] Future Scheduled Test 2023-02-14 COVID-19 VACCINE ([address] [place] [address] 07:55:29 Pfizer series) [code = COVID-19 VACCINE (3 - Pfizer series)] Future Scheduled Test 2023-02-14 INFLUENZA VACCINE [facility] 07:55:29 [code = INFLUENZA VACCINE] Future Scheduled Test 2022-12-27 Pneumococcal Vaccine: [facility] 14:16:08 Pediatrics (0 to 5 Years) and At-Risk Patients (6 to 64 Years) (1 - PCV) [code = Pneumococcal Vaccine: Pediatrics (0 to 5 Years) and At-Risk Patients (6 to 64 Years) (1 - PCV)] Future Scheduled Test 2022-12-27 Hepatitis C screening [facility] 14:16:08 (procedure) [code = [id number]] Future Scheduled Test 2022-12-27 COVID-19 VACCINE ([address] [place] [address] 14:16:08 Pfizer series) [code = COVID-19 VACCINE (3 - Pfizer series)] Future Scheduled Test 2022-12-27 INFLUENZA VACCINE [facility] 14:16:08 [code = INFLUENZA VACCINE] Future Scheduled Test 2022-12-27 Pneumococcal Vaccine: [facility] 14:16:08 Pediatrics (0 to 5 Years) and At-Risk Patients (6 to 64 Years) (1 - PCV) [code = Pneumococcal Vaccine: Pediatrics (0 to 5 Years) and At-Risk Patients (6 to 64 Years) (1 - PCV)] Future Scheduled Test 2022-12-27 Hepatitis C screening [facility] 14:16:08 (procedure) [code = [id number]] Future Scheduled Test 2022-12-27 COVID-19 VACCINE ([address] [place] [address] 14:16:08 Pfizer series) [code = COVID-19 VACCINE (3 - Pfizer series)] Future Scheduled Test 2022-12-27 INFLUENZA VACCINE [facility] 14:16:08 [code = INFLUENZA VACCINE] Diagnostic Test 2022-11-17 CMP, serum or plasma [facility] Pending 00:00:00 [code = CMP, serum or Group plasma] Diagnostic Test 2022-11-17 [facility] 00:[facility]:00 [code = CBC [...] Diagnostic Test 2022-11-17 lipid panel, serum [employer] Medical Pending 00:00:00 [code = lipid panel, Group serum] Future Scheduled Test 2022-10-26 Pneumococcal Vaccine: [facility] 12:10:59 Pediatrics (0 to 5 Years) and At-Risk Patients (6 to 64 Years) (1 - PCV) [code = Pneumococcal Vaccine: Pediatrics (0 to 5 Years) and At-Risk Patients (6 to 64 Years) (1 - PCV)] Future Scheduled Test 2022-10-26 Hepatitis C screening [facility] 12:10:59 (procedure) [code = [id number]] Future Scheduled Test 2022-10-26 COVID-19 VACCINE ([address] [place] [address] 12:10:59 Booster for Pfizer series) [code = COVID-19 VACCINE (3 - Booster for Pfizer series)] Future Scheduled Test 2022-10-26 INFLUENZA VACCINE [facility] 12:10:59 [code = INFLUENZA VACCINE] Future Scheduled Test 2022-10-26 Pneumococcal Vaccine: [facility] 12:10:59 Pediatrics (0 to 5 Years) and At-Risk Patients (6 to 64 Years) (1 - PCV) [code = Pneumococcal Vaccine: Pediatrics (0 to 5 Years) and At-Risk Patients (6 to 64 Years) (1 - PCV)] Future Scheduled Test 2022-10-26 Hepatitis C screening [facility] 12:10:59 (procedure) [code = [id number]] Future Scheduled Test 2022-10-26 COVID-19 VACCINE ([address] [place] [address] 12:10:59 Booster for Pfizer series) [code = COVID-19 VACCINE (3 - Booster for Pfizer series)] Future Scheduled Test 2022-10-26 INFLUENZA VACCINE [facility] 12:10:59 [code = INFLUENZA VACCINE] Future Scheduled Test 2022-10-26 Pneumococcal Vaccine: [facility] 12:10:59 Pediatrics (0 to 5 Years) and At-Risk Patients (6 to 64 Years) (1 - PCV) [code = Pneumococcal Vaccine: Pediatrics (0 to 5 Years) and At-Risk Patients (6 to 64 Years) (1 - PCV)] Future Scheduled Test 2022-10-26 Hepatitis C screening [facility] 12:10:59 (procedure) [code = [id number]] Future Scheduled Test 2022-10-26 COVID-19 VACCINE ([address] [place] [address] 12:10:59 Booster for Pfizer series) [code = COVID-19 VACCINE (3 - Booster for Pfizer series)] Future Scheduled Test 2022-10-26 INFLUENZA VACCINE [facility] 12:10:59 [code = INFLUENZA VACCINE] Future Scheduled Test 2022-10-26 Pneumococcal Vaccine: [facility] 12:10:59 Pediatrics (0 to 5 Years) and At-Risk Patients (6 to 64 Years) (1 - PCV) [code = Pneumococcal Vaccine: Pediatrics (0 to 5 Years) and At-Risk Patients (6 to 64 Years) (1 - PCV)] Future Scheduled Test 2022-10-26 Hepatitis C screening [facility] 12:10:59 (procedure) [code = [id number]] Future Scheduled Test 2022-10-26 COVID-19 VACCINE ([address] [place] [address] 12:10:59 Booster for Pfizer series) [code = COVID-19 VACCINE (3 - Booster for Pfizer series)] Future Scheduled Test 2022-10-26 INFLUENZA VACCINE [facility] 12:10:59 [code = INFLUENZA VACCINE] Future Scheduled Test 2022-10-12 Pneumococcal Vaccine: [facility] 03:52:45 Pediatrics (0 to 5 Years) and At-Risk Patients (6 to 64 Years) (1 - PCV) [code = Pneumococcal Vaccine: Pediatrics (0 to 5 Years) and At-Risk Patients (6 to 64 Years) (1 - PCV)] Future Scheduled Test 2022-10-12 Hepatitis C screening [facility] 03:52:45 (procedure) [code = [id number]] Future Scheduled Test 2022-10-12 COVID-19 VACCINE ([address] [place] [address] 03:52:45 Booster for Pfizer series) [code = COVID-19 VACCINE (3 - Booster for Pfizer series)] Future Scheduled Test 2022-10-12 INFLUENZA VACCINE [facility] 03:52:45 [code = INFLUENZA VACCINE] Future Scheduled Test 2022-10-12 Pneumococcal Vaccine: [facility] 03:52:45 Pediatrics (0 to 5 Years) and At-Risk Patients (6 to 64 Years) (1 - PCV) [code = Pneumococcal Vaccine: Pediatrics (0 to 5 Years) and At-Risk Patients (6 to 64 Years) (1 - PCV)] Future Scheduled Test 2022-10-12 Hepatitis C screening [facility] 03:52:45 (procedure) [code = [id number]] Future Scheduled Test 2022-10-12 COVID-19 VACCINE ([address] [place] [address] 03:52:45 Booster for Pfizer series) [code = COVID-19 VACCINE (3 - Booster for Pfizer series)] Future Scheduled Test 2022-10-12 INFLUENZA VACCINE [facility] 03:52:45 [code = INFLUENZA VACCINE] Future Scheduled Test 2022-10-12 Pneumococcal Vaccine: [facility] 03:52:45 Pediatrics (0 to 5 Years) and At-Risk Patients (6 to 64 Years) (1 - PCV) [code = Pneumococcal Vaccine: Pediatrics (0 to 5 Years) and At-Risk Patients (6 to 64 Years) (1 - PCV)] Future Scheduled Test 2022-10-12 Hepatitis C screening [facility] 03:52:45 (procedure) [code = [id number]] Future Scheduled Test 2022-10-12 COVID-19 VACCINE ([address] [place] [address] 03:52:45 Booster for Pfizer series) [code = COVID-19 VACCINE (3 - Booster for Pfizer series)] Future Scheduled Test 2022-10-12 INFLUENZA VACCINE [facility] 03:52:45 [code = INFLUENZA VACCINE] Future Scheduled Test 2022-09-07 Pneumococcal Vaccine: [facility] 19:21:49 Pediatrics (0 to 5 Years) and At-Risk Patients (6 to 64 Years) (1 - PCV) [code = Pneumococcal Vaccine: Pediatrics (0 to 5 Years) and At-Risk Patients (6 to 64 Years) (1 - PCV)] Future Scheduled Test 2022-09-07 Hepatitis C screening [facility] 19:21:49 (procedure) [code = [id number]] Future Scheduled Test 2022-09-07 COVID-19 VACCINE ([address] [place] [address] 19:21:49 Booster for Pfizer series) [code = COVID-19 VACCINE (3 - Booster for Pfizer series)] Future Scheduled Test 2022-09-07 INFLUENZA VACCINE [facility] 19:21:49 [code = INFLUENZA VACCINE] Future Scheduled Test 2022-09-07 Pneumococcal Vaccine: [facility] 19:21:49 Pediatrics (0 to 5 Years) and At-Risk Patients (6 to 64 Years) (1 - PCV) [code = Pneumococcal Vaccine: Pediatrics (0 to 5 Years) and At-Risk Patients (6 to 64 Years) (1 - PCV)] Future Scheduled Test 2022-09-07 Hepatitis C screening [facility] 19:21:49 (procedure) [code = [id number]] Future Scheduled Test 2022-09-07 COVID-19 VACCINE (3 [facility] 19:21:49 Booster for Pfizer series) [code = COVID-19 VACCINE (3 - Booster for Pfizer series)] Future Scheduled Test 2022-09-07 INFLUENZA VACCINE [facility] 19:21:49 [code = INFLUENZA VACCINE] Future Scheduled Test 2022-09-07 Pneumococcal Vaccine: [facility] 19:21:49 Pediatrics (0 to 5 Years) and At-Risk Patients (6 to 64 Years) (1 - PCV) [code = Pneumococcal Vaccine: Pediatrics (0 to 5 Years) and At-Risk Patients (6 to 64 Years) (1 - PCV)] Future Scheduled Test 2022-09-07 Hepatitis C screening [facility] 19:21:49 (procedure) [code = [id number]] Future Scheduled Test 2022-09-07 COVID-19 VACCINE ([address] [place] [address] 19:21:49 Booster for Pfizer series) [code = COVID-19 VACCINE (3 - Booster for Pfizer series)] Future Scheduled Test 2022-09-07 INFLUENZA VACCINE [facility] 19:21:49 [code = INFLUENZA VACCINE] Future Scheduled Test 2022-09-07 Pneumococcal Vaccine: [facility] 19:21:49 Pediatrics (0 to 5 Years) and At-Risk Patients (6 to 64 Years) (1 - PCV) [code = Pneumococcal Vaccine: Pediatrics (0 to 5 Years) and At-Risk Patients (6 to 64 Years) (1 - PCV)] Future Scheduled Test 2022-09-07 Hepatitis C screening [facility] 19:21:49 (procedure) [code = [id number]] Future Scheduled Test 2022-09-07 COVID-19 VACCINE ([address] [place] [address] 19:21:49 Booster for Pfizer series) [code = COVID-19 VACCINE (3 - Booster for Pfizer series)] Future Scheduled Test 2022-09-07 INFLUENZA VACCINE [facility] 19:21:49 [code = INFLUENZA VACCINE] Future Scheduled Test 2022-06-26 Pneumococcal Vaccine: [facility] 18:09:46 Pediatrics (0 to 5 Years) and At-Risk Patients (6 to 64 Years) (1 - PCV) [code = Pneumococcal Vaccine: Pediatrics (0 to 5 Years) and At-Risk Patients (6 to 64 Years) (1 - PCV)] Future Scheduled Test 2022-06-26 Hepatitis C screening [facility] 18:09:46 (procedure) [code = [id number]] Future Scheduled Test 2022-06-26 COVID-19 VACCINE ([address] [place] [address] 18:09:46 Booster for Pfizer series) [code = COVID-19 VACCINE (3 - Booster for Pfizer series)] Future Scheduled Test 2022-06-26 INFLUENZA VACCINE [facility] 18:09:46 [code = INFLUENZA VACCINE] Future Scheduled Test 2022-06-26 Pneumococcal Vaccine: [facility] 18:09:46 Pediatrics (0 to 5 Years) and At-Risk Patients (6 to 64 Years) (1 - PCV) [code = Pneumococcal Vaccine: Pediatrics (0 to 5 Years) and At-Risk Patients (6 to 64 Years) (1 - PCV)] Future Scheduled Test 2022-06-26 Hepatitis C screening [facility] 18:09:46 (procedure) [code = [id number]] Future Scheduled Test 2022-06-26 COVID-19 VACCINE ([address] [place] [address] 18:09:46 Booster for Pfizer series) [code = COVID-19 VACCINE (3 - Booster for Pfizer series)] Future Scheduled Test 2022-06-26 INFLUENZA VACCINE [facility] 18:09:46 [code = INFLUENZA VACCINE] Future Scheduled Test 2022-05-20 Pneumococcal Vaccine: [facility] 09:23:23 Pediatrics (0 to 5 Years) and At-Risk Patients (6 to 64 Years) (1 - PCV) [code = Pneumococcal Vaccine: Pediatrics (0 to 5 Years) and At-Risk Patients (6 to 64 Years) (1 - PCV)] Future Scheduled Test 2022-05-20 Hepatitis C screening [facility] 09:23:23 (procedure) [code = [id number]] Future Scheduled Test 2022-05-20 COVID-19 VACCINE ([address] [place] [address] 09:23:23 Booster for Pfizer series) [code = COVID-19 VACCINE (3 - Booster for Pfizer series)] Future Scheduled Test 2022-05-20 INFLUENZA VACCINE [facility] 09:23:23 [code = INFLUENZA VACCINE] Future Scheduled Test 2022-05-20 Pneumococcal Vaccine: [facility] 09:23:23 Pediatrics (0 to 5 Years) and At-Risk Patients (6 to 64 Years) (1 - PCV) [code = Pneumococcal Vaccine: Pediatrics (0 to 5 Years) and At-Risk Patients (6 to 64 Years) (1 - PCV)] Future Scheduled Test 2022-05-20 Hepatitis C screening [facility] 09:23:23 (procedure) [code = [id number]] Future Scheduled Test 2022-05-20 COVID-19 VACCINE ([address] [place] [address] 09:23:23 Booster for Pfizer series) [code = COVID-19 VACCINE (3 - Booster for Pfizer series)] Future Scheduled Test 2022-05-20 INFLUENZA VACCINE [facility] 09:23:23 [code = INFLUENZA VACCINE] Future Scheduled Test 2022-05-20 Pneumococcal Vaccine: [facility] 09:23:23 Pediatrics (0 to 5 Years) and At-Risk Patients (6 to 64 Years) (1 - PCV) [code = Pneumococcal Vaccine: Pediatrics (0 to 5 Years) and At-Risk Patients (6 to 64 Years) (1 - PCV)] Future Scheduled Test 2022-05-20 Hepatitis C screening [facility] 09:23:23 (procedure) [code = [id number]] Future Scheduled Test 2022-05-20 COVID-19 VACCINE ([address] [place] [address] 09:23:23 Booster for Pfizer series) [code = COVID-19 VACCINE (3 - Booster for Pfizer series)] Future Scheduled Test 2022-05-20 INFLUENZA VACCINE [facility] 09:23:23 [code = INFLUENZA VACCINE] Future Scheduled Test 2022-05-20 Pneumococcal Vaccine: [facility] 09:23:23 Pediatrics (0 to 5 Years) and At-Risk Patients (6 to 64 Years) (1 - PCV) [code = Pneumococcal Vaccine: Pediatrics (0 to 5 Years) and At-Risk Patients (6 to 64 Years) (1 - PCV)] Future Scheduled Test 2022-05-20 Hepatitis C screening [facility] 09:23:23 (procedure) [code = [id number]] Future Scheduled Test 2022-05-20 COVID-19 VACCINE ([address] [place] [address] 09:23:23 Booster for Pfizer series) [code = COVID-19 VACCINE (3 - Booster for Pfizer series)] Future Scheduled Test 2022-05-20 INFLUENZA VACCINE [facility] 09:23:23 [code = INFLUENZA VACCINE] Future Scheduled Test 2022-05-20 Pneumococcal Vaccine: [facility] 09:23:23 Pediatrics (0 to 5 Years) and At-Risk Patients (6 to 64 Years) (1 - PCV) [code = Pneumococcal Vaccine: Pediatrics (0 to 5 Years) and At-Risk Patients (6 to 64 Years) (1 - PCV)] Future Scheduled Test 2022-05-20 Hepatitis C screening [facility] 09:23:23 (procedure) [code = [id number]] Future Scheduled Test 2022-05-20 COVID-19 VACCINE ([address] [place] [address] 09:23:23 Booster for Pfizer series) [code = COVID-19 VACCINE (3 - Booster for Pfizer series)] Future Scheduled Test 2022-05-20 INFLUENZA VACCINE [facility] 09:23:23 [code = INFLUENZA VACCINE] Future Scheduled Test 2022-05-20 Pneumococcal Vaccine: [facility] 09:23:23 Pediatrics (0 to 5 Years) and At-Risk Patients (6 to 64 Years) (1 - PCV) [code = Pneumococcal Vaccine: Pediatrics (0 to 5 Years) and At-Risk Patients (6 to 64 Years) (1 - PCV)] Future Scheduled Test 2022-05-20 Hepatitis C screening [facility] 09:23:23 (procedure) [code = [id number]] Future Scheduled Test 2022-05-20 COVID-19 VACCINE ([address] [place] [address] 09:23:23 Booster for Pfizer series) [code = COVID-19 VACCINE (3 - Booster for Pfizer series)] Future Scheduled Test 2022-05-20 INFLUENZA VACCINE [facility] 09:23:23 [code = INFLUENZA VACCINE] Future Scheduled Test 2022-05-11 Pneumococcal Vaccine: [facility] 07:01:06 Pediatrics (0 to 5 Years) and At-Risk Patients (6 to 64 Years) (1 - PCV) [code = Pneumococcal Vaccine: Pediatrics (0 to 5 Years) and At-Risk Patients (6 to 64 Years) (1 - PCV)] Future Scheduled Test 2022-05-11 Hepatitis C screening [facility] 07:01:06 (procedure) [code = [id number]] Future Scheduled Test 2022-05-11 COVID-19 VACCINE ([address] [place] [address] 07:01:06 Booster for Pfizer series) [code = COVID-19 VACCINE (3 - Booster for Pfizer series)] Future Scheduled Test 2022-05-11 INFLUENZA VACCINE [facility] 07:01:06 [code = INFLUENZA VACCINE] Future Scheduled Test 2022-05-11 Pneumococcal Vaccine: [facility] 07:01:06 Pediatrics (0 to 5 Years) and At-Risk Patients (6 to 64 Years) (1 - PCV) [code = Pneumococcal Vaccine: Pediatrics (0 to 5 Years) and At-Risk Patients (6 to 64 Years) (1 - PCV)] Future Scheduled Test 2022-05-11 Hepatitis C screening [facility] 07:01:06 (procedure) [code = [id number]] Future Scheduled Test 2022-05-11 COVID-19 VACCINE ([address] [place] [address] 07:01:06 Booster for Pfizer series) [code = COVID-19 VACCINE (3 - Booster for Pfizer series)] Future Scheduled Test 2022-05-11 INFLUENZA VACCINE [facility] 07:01:06 [code = INFLUENZA VACCINE] Future Scheduled Test 2022-04-23 Pneumococcal Vaccine: [facility] 15:05:55 Pediatrics (0 to 5 Years) and At-Risk Patients (6 to 64 Years) (1 - PCV) [code = Pneumococcal Vaccine: Pediatrics (0 to 5 Years) and At-Risk Patients (6 to 64 Years) (1 - PCV)] Future Scheduled Test 2022-04-23 Hepatitis C screening [facility] 15:05:55 (procedure) [code = [id number]] Future Scheduled Test 2022-04-23 COVID-19 VACCINE ([address] [place] [address] 15:05:55 Booster for Pfizer series) [code = COVID-19 VACCINE (3 - Booster for Pfizer series)] Future Scheduled Test 2022-04-23 INFLUENZA VACCINE [facility] 15:05:55 [code = INFLUENZA VACCINE] Future Scheduled Test 2022-03-19 Pneumococcal Vaccine: [facility] 14:05:17 Pediatrics (0 to 5 Years) and At-Risk Patients (6 to 64 Years) (1 - PCV) [code = Pneumococcal Vaccine: Pediatrics (0 to 5 Years) and At-Risk Patients (6 to 64 Years) (1 - PCV)] Future Scheduled Test 2022-03-19 Hepatitis C screening [facility] 14:05:17 (procedure) [code = [id number]] Future Scheduled Test 2022-03-19 COVID-19 VACCINE ([address] [place] [address] 14:05:17 Booster for Pfizer series) [code = COVID-19 VACCINE (3 - Booster for Pfizer series)] Future Scheduled Test 2022-03-19 INFLUENZA VACCINE [facility] 14:05:17 [code = INFLUENZA VACCINE] Future Scheduled Test 2022-03-19 Pneumococcal Vaccine: [facility] 14:05:17 Pediatrics (0 to 5 Years) and At-Risk Patients (6 to 64 Years) (1 - PCV) [code = Pneumococcal Vaccine: Pediatrics (0 to 5 Years) and At-Risk Patients (6 to 64 Years) (1 - PCV)] Future Scheduled Test 2022-03-19 Hepatitis C screening [facility] 14:05:17 (procedure) [code = [id number]] Future Scheduled Test 2022-03-19 COVID-19 VACCINE ([address] [place] [address] 14:05:17 Booster for Pfizer series) [code = COVID-19 VACCINE (3 - Booster for Pfizer series)] Future Scheduled Test 2022-03-19 INFLUENZA VACCINE [facility] 14:05:17 [code = INFLUENZA VACCINE] Future Scheduled Test 2022-03-06 Pneumococcal Vaccine: [facility] 19:05:17 Pediatrics (0 to 5 Years) and At-Risk Patients (6 to 64 Years) (1 - PCV) [code = Pneumococcal Vaccine: Pediatrics (0 to 5 Years) and At-Risk Patients (6 to 64 Years) (1 - PCV)] Future Scheduled Test 2022-03-06 Hepatitis C screening [facility] 19:05:17 (procedure) [code = [id number]] Future Scheduled Test 2022-03-06 COVID-19 VACCINE ([address] [place] [address] 19:05:17 Booster for Pfizer series) [code = COVID-19 VACCINE (3 - Booster for Pfizer series)] Future Scheduled Test 2022-03-06 INFLUENZA VACCINE [facility] 19:05:17 [code = INFLUENZA VACCINE] Future Scheduled Test 2022-03-06 Pneumococcal Vaccine: [facility] 19:05:17 Pediatrics (0 to 5 Years) and At-Risk Patients (6 to 64 Years) (1 - PCV) [code = Pneumococcal Vaccine: Pediatrics (0 to 5 Years) and At-Risk Patients (6 to 64 Years) (1 - PCV)] Future Scheduled Test 2022-03-06 Hepatitis C screening [facility] 19:05:17 (procedure) [code = [id number]] Future Scheduled Test 2022-03-06 COVID-19 VACCINE ([address] [place] [address] 19:05:17 Booster for Pfizer series) [code = COVID-19 VACCINE (3 - Booster for Pfizer series)] Future Scheduled Test 2022-03-06 INFLUENZA VACCINE [facility] 19:05:17 [code = INFLUENZA VACCINE] Future Scheduled Test 2022-03-06 Pneumococcal Vaccine: [facility] 19:05:17 Pediatrics (0 to 5 Years) and At-Risk Patients (6 to 64 Years) (1 - PCV) [code = Pneumococcal Vaccine: Pediatrics (0 to 5 Years) and At-Risk Patients (6 to 64 Years) (1 - PCV)] Future Scheduled Test 2022-03-06 Hepatitis C screening [facility] 19:05:17 (procedure) [code = [id number]] Future Scheduled Test 2022-03-06 COVID-19 VACCINE ([address] [place] [address] 19:05:17 Booster for Pfizer series) [code = COVID-19 VACCINE (3 - Booster for Pfizer series)] Future Scheduled Test 2022-03-06 INFLUENZA VACCINE [facility] 19:05:17 [code = INFLUENZA VACCINE] Future Scheduled Test 2022-03-06 Pneumococcal Vaccine: [facility] 19:05:17 Pediatrics (0 to 5 Years) and At-Risk Patients (6 to 64 Years) (1 - PCV) [code = Pneumococcal Vaccine: Pediatrics (0 to 5 Years) and At-Risk Patients (6 to 64 Years) (1 - PCV)] Future Scheduled Test 2022-03-06 Hepatitis C screening [facility] 19:05:17 (procedure) [code = [id number]] Future Scheduled Test 2022-03-06 [facility]05:17 Booster for Pfizer series) [code = COVID-19 VACCINE (3 - Booster for Pfizer series)] Future Scheduled Test 2022-03-06 INFLUENZA VACCINE [facility] 19:05:17 [code = INFLUENZA VACCINE] Instructions [facility] Encounters Start End Encounter Admission Attending Care Care Encounter Source Date/Time Date/Time Type Type Clinicians Facility Department ID 2022-08-[address] [facility] [id number] [place] 10:40:02 Ronnell [id number] [facility] 2022-08-09 Inpatient TEXANA TEXANA [id number] [place] 16:07:58 [id number] [place] 2022-06-18 Inpatient YASMEEN KHANNA [facility] [id number] [place] 08:00:00 NAHUN [id number] [facility] 2022-06-11 Inpatient YASMEEN KHANNA [facility] [id number] [place] 08:00:00 [id number] [facility] 2022-06-08 Inpatient TEXANA TEXANA [id number] [place] 11:16:57 [id number] [place] 2022-05-31 Inpatient TEXANA TEXANA [id number] [place] 12:03:56 [id number] [place] 2022-05-[address] [facility] [id number] Common 09:43:04 Ronnell [id number] [facility] 2022-05-03 Inpatient YASMEEN ROMERO [facility] [id number] [place] 09:00:00 MAYNOR [id number] [facility] 2022-03-23 Inpatient TEXANA TEXANA [id number] [place] 11:21:45 [id number] [place] 2022-12-21 2023-01-07 Outpatient YASMEEN POND [facility] [id number] [place] 15:14:00 00:01:00 RICH [id number] [facility] 2022-12-03 2022-12-03 Inpatient YASMEEN POND [facility] [id number] [place] 14:00:00 08:18:00 RICH [id number] [facility] 2022-11-25 2022-11-25 Outpatient Duarte_Sundar [facility] [id number] [place] 00:00:00 00:00:00 [id number] [facility] 2022-11-25 2022-11-25 Susan [facility] [place] - [id number] M [place] 00:00:00 00:00:00 [facility] [employer]: [address] [facility] [address], [place] [address] , Ph. 2022-11-19 2022-11-19 Outpatient [place], [facility] [id number] [place] 08:55:00 08:55:00 Ronnell -[id number] [facility] 2022-11-17 2022-11-17 Ronnell [facility] [place] - [id number] [place] 00:00:00 00:00:00 Micky Lozano Medical Medical MD: 600 [facility] [address], [place] [address] , Ph. 2022-10-19 2022-10-19 Emergency ER JOEL, [facility] D000 [id number] [place] 03:22:00 05:40:00 BRENDA -[id number] [facility] 2022-09-07 2022-09-07 Telephone Duc, 1.2.840.1 [id number] 2100 [id number] Methodi 00:00:00 00:00:[address] 3.430.2.7 Hospit a .3.691867 l .8 2022-09-07 2022-09-07 Telephone Duc, 1.2.840.1 [id number] 2099 073590 Methodi 00:00:00 00:00:[address] 3.430.2.7 Hospit a .3.012099 l .8 2022-07-26 2022-08-06 Maynor Pierson 1.2.840.1 [id number] Methodi 10:00:00 16:53:40 Visit [place] 45967.1.[address] 3.430.2.7 Hospit a .3.216567 l .8 2022-07-26 2022-08-06 Office Maynor RomeroJuan José 1.2.840.1 [id number] Methodi 10:00:00 16:53:40 Visit [place] [address]50.1.[address] 3.430.2.7 Hospit a .3.687121 l .8 2022-07-29 2022-07-29 Outpatient YASMEEN KHANNA [facility] [id number] [place] 09:54:00 09:54:00 NAHUN -[id number] [facility] 2022-07-26 2022-07-26 Travel 1.2.840.1 1.2.623.873 2022 [id number] Methodi 00:00:00 00:00:[address] 3.430.2.7 0.2.7.3.698 Ho spita .3.209734 084.8 l .8 2022-07-26 2022-07-26 Travel 1.2.840.1 1.2.816.393 4744 922859 Methodi 00:00:00 00:00:[address] 3.430.2.7 0.2.7.3.698 Ho spita .3.786450 084.8 l .8 2022-06-14 2022-07-10 Outpatient YASMEEN ROMERO [facility] [id number] [place] 07:00:00 00:01:00 MAYNOR -[id number] [facility] 2022-07-05 2022-07-05 Emergency ER Barron, [facility] [id number] [place] 23:45:00 23:58:00 Neymar -[id number] [facility] 2022-06-25 2022-06-25 Outpatient YASMEEN Perry [facility] [id number] [place] 10:55:00 10:55:00 [facility] -[id number] [facility] 2022-06-25 2022-06-25 Outpatient Zuniga_F MMG [facility] [id number]- 2021 [place] 00:00:00 00:00:00 1216 [facility] 2022-06-25 2022-06-25 [place] [id number]- 2022 [place] 00:00:00 00:00:00 0509 [facility] 2022-06-25 2022-06-25 [place] [id number]- 2022 [place] 00:00:00 00:00:00 0510 [facility] 2022-06-25 2022-06-25 Outpatient Zuniga_F MMG [facility] [id number]- 2022 [place] 00:00:00 00:00:00 0513 [facility] 2022-06-25 2022-06-25 Radha [facility] [place] - [id number] [place] 00:00:00 00:00:00 Discovery [place] 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 [address], [facility] [place] [address] , Ph. 2022-06-24 2022-06-24 Orders Mariferi, 1.2.840.1 [id number] 2099 [id number] Methodi 00:00:00 00:00:00 Only Rich [address]292.1.[address] 3.430.2.7 Hospit a .3.952338 l .8 2022-06-24 2022-06-24 Orders Mariferi, 1.2.840.1 [id number] 2099 [id number] Methodi 00:00:00 00:00:00 Only Rich [address]014.1.[address] 3.430.2.7 Hospit a .3.706436 l .8 2022-06-21 2022-06-21 Outpatient Zuniga_F MMG [facility] 11256- 2021 [place] 00:00:00 00:00:00 1212 [facility] 2022-06-21 2022-06-21 Ronnell [facility] [place] - [id number] [place] 00:00:00 00:00:00 Aracelis Klein Medical MD: [address] [place] [address] [address], [place] [address] , Ph. 2022-06-09 2022-06-16 Inpatient ER Perry, [facility] [id number] [place] 08:05:00 15:40:00 Ronnell -[id number] [facility] 2022-06-02 2022-06-09 Outpatient YASMEEN ROMERO, [facility] [id number] [place] 11:00:00 00:01:00 MAYNOR -[id number] [facility] 2022-06-07 2022-06-07 Inpatient ER PERRY, [facility] [id number] [place] 17:16:00 14:35:00 RONNELL -[id number] [facility] 2022-06-05 2022-06-05 [facility] [id number] [place] 15:31:00 15:45:00 JASON -[id number] [facility] 2022-05-26 2022-05-26 Outpatient YASMEEN ROMERO, [facility] [id number] [place] 11:00:00 11:00:00 MAYNOR -[id number] [facility] 2022-05-24 2022-05-24 Outpatient YASMEEN NICK [facility] [id number] [place] 11:00:00 11:00:00 MAYNOR -[id number] da [facility] 2022-05-21 2022-05-21 Outpatient YASMEEN ROMERO [facility] [id number] [place] 11:00:00 11:00:00 MAYNOR -[id number] da [facility] 2022-05-20 2022-05-20 Outpatient YASMEEN KHANNA [facility] [id number] [place] 08:01:00 08:01:00 NAHUN -[id number] [facility] 2022-05-19 2022-05-19 OFFICE [facility] [id number] Co mmon 00:00:00 00:00:00 VISIT [facility] it PT LEVEL 3 - [facility] 2022-05-19 2022-05-19 Orders Dejah, 1.2.840.1 [id number] 2100 [id number] Methodi 00:00:00 00:00:00 Only Rich 13739.1.[address] 3.430.2.7 Hospit a .3.502374 l .8 2022-05-19 2022-05-19 Orders Dejah, 1.2.840.1 [id number] 2099 [id number] Methodi 00:00:00 00:00:00 Only Rich 88486.1.[address] 3.430.2.7 Hospit a .3.397527 l .8 2022-05-18 2022-05-18 Emergency ER JOEL, [facility] D000 [id number] [place] 19:04:00 21:55:00 BRENDA -[id number] [facility] 2022-04-30 2022-04-30 Emergency ER LUDMILARImmanuel, [facility] [id number] [place] 14:49:00 15:34:00 JASON -[id number] [facility] 2022-04-25 2022-04-25 Emergency ER Beatrice, [facility] [id number] [place] 14:10:00 14:43:00 Neymar -[id number] [facility] 2022-04-21 2022-04-21 Emergency ER ANAYA, [facility] [id number] [place] 08:47:00 10:02:00 SHI -[id number] [facility] 2022-04-19 2022-04-19 Vikki Romero, 1.2.840.1 [id number] 9832 Methodi 10:20:00 11:30:20 Visit Maynor Sánchez 20475.1.1 837 s t 3.430.2.7 Hospit a .3.244875 l .8 2022-04-19 2022-04-19 Vikki Romero, 1.2.840.1 [id number] 2151 Methodi 10:20:00 11:30:20 Visit Maynor Sánchez 44898.1.1 837 s t 3.430.2.7 Hospit a .3.356116 l .8 2022-04-19 2022-04-19 Travel 1.2.840.1 1.2.902.487 8755 347061 Methodi 00:00:00 00:00:[address] 3.430.2.7 0.2.7.3.698 Ho spita .3.014555 084.8 l .8 2022-04-19 2022-04-19 Travel 1.2.840.1 1.2.537.127 7401 880973 Methodi 00:00:00 00:00:[address] 3.430.2.7 0.2.7.3.698 Ho spita .3.728784 084.8 l .8 2022-04-16 2022-04-16 Emergency ER Barron, [facility] [id number] [place] 08:42:00 11:50:00 Neymar -[id number] [facility] 2022-04-14 2022-04-14 Emergency ER JACLYN, [facility] [id number] [place] 07:08:00 08:22:00 SHI -[id number] [facility] 2022-04-05 2022-04-05 Emergency ER Melissa, [facility] [id number] [place] 12:23:00 14:08:00 Alexa -[id number] [facility] 2022-04-01 2022-04-01 Outpatient Zuniga_F [facility] [id number] [place] 00:00:00 00:00:00 921 [facility] 2022-04-01 2022-04-01 Orders Dejah, 1.2.840.1 [id number] 2100 [id number] Methodi 00:00:00 00:00:00 Only Rich 45139.1.[address] 3.430.2.7 Hospit a .3.736758 l .8 2022-04-01 2022-04-01 Orders Dejah, 1.2.840.1 [id number] 2099 496998 Methodi 00:00:00 00:00:00 Only Rich 27998.1.[address] 3.430.2.7 Hospit a .3.346182 l .8 2022-03-31 2022-03-31 Emergency ER JACLYN, [facility] [id number] [place] 13:34:00 16:08:00 SHI -[id number] [facility] 2022-03-21 2022-03-21 Emergency ER LUDMILAImmanuel, [facility] [id number] [place] 09:47:00 14:33:00 JASON -[id number] [facility] 2022-03-19 2022-03-19 Office Dejah, 1.2.840.1 [id number] 2099 [id number] Methodi 14:20:00 14:33:59 Visit Rich 57613.1.[address] 3.430.2.7 Hospit a .3.327715 l .8 2022-03-19 2022-03-19 Office Dejah, 1.2.840.1 [id number] 2099 188336 Methodi 14:20:00 14:33:59 Visit Rich 45313.1.[address] 3.430.2.7 Hospit a .3.504601 l .8 2022-03-19 2022-03-19 Travel 1.2.840.1 1.2.459.861 3896 378429 Methodi 00:00:00 00:00:[address] 3.430.2.7 0.2.7.3.698 Ho spita .3.404355 084.8 l .8 2022-03-19 2022-03-19 Travel 1.2.840.1 1.2.148.826 5015 482120 Methodi 00:00:00 00:00:[address] 3.430.2.7 0.2.7.3.698 spita .3.005668 084.8 l .8 2022-03-11 2022-03-11 Emergency ER RAAD, [facility] [id number] [place] 09:45:00 13:28:00 JULIUS -[id number] [facility] 2022-03-09 2022-03-09 Outpatient Duarte_M [facility] [id number] -2021 [place] 00:00:00 00:00:00 0830 Medical Group 2022-03-09 2022-03-09 Kia [facility] [place] - [id number] [place] at[place] 00:00:00 00:00:00 Discovery perry Simpson PA-C: 600 [facility] [address], [facility] [place] [address] , Ph. 2022-03-07 2022-03-07 Emergency ER JACLYN, [facility] [id number] [place] 12:01:00 13:53:00 SHI -[id number] [facility] 2022-03-03 2022-03-03 Telephone Apolinar, 1.2.840.1 [id number] 2100 [id number] Methodi 00:00:00 00:00:[address] 3.430.2.7 Hospit a .3.513333 l .8 2022-03-03 2022-03-03 Telephone Apolinar, 1.2.840.1 [id number] 2100 511138 Methodi 00:00:00 00:00:[address] 3.430.2.7 Hospit a .3.077973 l .8 2022-03-02 2022-03-02 [facility], 1.2.840.1 [id number] 70278 99291 Methodi 05:56:00 11:56:00 Encounter Maynor Sánchez 63362.1.[address] 3.430.2.7 Hospit a .3.732088 l .8 2022-03-02 2022-03-02 [facility], 1.2.840.1 [id number] 84308 21522 Methodi 05:56:00 11:56:00 Encounter Maynor Sánchez 85812.1.[address] 3.430.2.7 Hospit a .3.290762 l .8 2022-03-02 2022-03-02 Anesthesia Alfreda Duvall A. 1.2.840.1 10 [id number] [id number] Methodi 07:29:00 09:55:00 Event Anna dAair 69316.1.[address] 3.430.2.7 Hospit a .3.578309 l .8 2022-03-02 2022-03-02 Anesthesia Alfreda Duvall A. 1.2.840.1 10 [id number] Methodi 07:29:00 09:55:00 Event Anna Adair 76526.1.[address] 3.430.2.7 Hospit a .3.769526 l .8 2022-03-02 2022-03-02 Surgery [place], 1.2.840.1 [id number] 444599 6252 Methodi 07:30:00 09:50:00 Maynor Sánchez 70157.1.1 735 s t 3.430.2.7 Hospit a .3.316104 l .8 2022-03-02 2022-03-02 [facility], 1.2.840.1 [id number] 591928 0771 Methodi 07:30:00 09:50:00 Maynor LynchJuan José 94818.1.1 735 s t 3.430.2.7 Hospit a .3.173723 l .8 2022-03-02 2022-03-02 Telephone Dejah 1.2.840.1 [id number] 21 [id number] Methodi 00:00:00 00:00:[address] 3.430.2.7 Hospit a .3.376615 l .8 2022-03-02 2022-03-02 Telephone Dejah 1.2.840.1 [id number] 21 [id number] Methodi 00:00:00 00:00:[address] 3.430.2.7 Hospit a .3.615615 l .8 2022-03-01 2022-03-01 [facility], 1.2.840.1 [id number] 03528 Methodi 12:18:26 23:59:00 Encounter Maynor Sánchez 19554.1.[address] 3.430.2.7 Hospit a .3.916249 l .8 2022-03-01 2022-03-01 [facility], 1.2.840.1 [id number] Methodi 12:18:26 23:59:00 Encounter Maynor Sánchez 94999.1.[address] 3.430.2.7 Hospit a .3.573844 l .8 2022-03-01 2022-03-01 Pre-Admiss [place], 1.2.840.1 [id number] 258 5771027 Methodi 09:30:00 10:30:00 ion Maynor Sánchez 52610.1.1 034 s t Testing 3.430.2.7 Hospit a .3.909857 l .8 2022-03-01 2022-03-01 Pre-Admiss [place], 1.2.840.1 [id number] 504 0524277 Methodi 09:30:00 10:30:00 doris Sánchez 39574.1.1 034 s t Testing 3.430.2.7 Hospit a .3.268220 l .8 2022-03-01 2022-03-01 Telephone Graeme, 1.2.840.1 [id number] 21 18701375 Methodi 00:00:00 00:00:[address].1.[address] 3.430.2.7 Hospit a .3.094388 l .8 2022-03-01 2022-03-01 Travel 1.2.840.1 1.2.943.798 7860 522292 Methodi 00:00:00 00:00:[address] 3.430.2.7 0.2.7.3.698 Ho spita .3.935597 084.8 l .8 2022-03-01 2022-03-01 Telephone Bedolla, 1.2.840.1 [id number] 02511774 Methodi 00:00:00 00:00:00 Mica[address]ache[address]85.1.[address] 3.430.2.7 Hospit a .3.125539 l .8 2022-03-01 2022-03-01 Travel 1.2.840.1 1.2.113.088 5125 000712 Methodi 00:00:00 00:00:[address] 3.430.2.7 0.2.7.3.698 Ho spita .3.712456 084.8 l .8 2022-02-26 2022-02-26 Telephone Wood, 1.2.840.1 [id number] 2099685 Methodi 00:00:00 00:00:00 Maynor Lynch. 75727.1.1 279 s t 3.430.2.7 Hospit a .3.169938 l .8 2022-02-26 2022-02-26 Travel 1.2.840.1 1.2.850.899 2274 580181 Methodi 00:00:00 00:00:[address] 3.430.2.7 0.2.7.3.698 Ho spita .3.931179 084.8 l .8 2022-02-26 2022-02-26 Telephone Wood, 1.2.840.1 514007104 2099685 Methodi 00:00:00 00:00:00 Maynor Lynch. 50951.1.1 279 s t 3.430.2.7 Hospit a .3.243716 l .8 2022-02-26 2022-02-26 Travel 1.2.840.1 1.2.156.359 5711 417254 Methodi 00:00:00 00:00:[address] 3.430.2.7 0.2.7.3.698 Ho spita .3.855218 084.8 l .8 2022-02-24 2022-02-25 Emergency [facility] 1.2.840.1 1041 88526 [id number] Methodi 15:25:00 19:45:00 Basilio Diallo 89502.1.[address] 3.430.2.7 Hospit a .3.710038 l .8 2022-02-25 2022-02-25 Transcribe Nick, 1.2.840.1 [id number] 200 0971039 Methodi 00:00:00 00:00:00 Orders Maynor Sánchez 05926.1.1 241 s t 3.430.2.7 Hospit a .3.677710 l .8 2022-02-25 2022-02-25 Orders Dejah, 1.2.840.1 [id number] 2100 412195 Methodi 00:00:00 00:00:00 Only Rich 56770.1.[address] 3.430.2.7 Hospit a .3.000269 l .8 2022-02-24 2022-02-24 [facility], 1.2.840.1 [id number] 10855 28677 Methodi 18:39:58 23:59:00 Encounter Maynor Sánchez 44437.1.[address] 3.430.2.7 Hospit a .3.057394 l .8 2022-02-24 2022-02-24 [facility], 1.2.840.1 [id number] 14739 Methodi 18:39:26 23:59:00 Encounter Maynor Sánchez 76301.1.[address] 3.430.2.7 Hospit a .3.394284 l .8 2022-02-24 2022-02-24 [facility], 1.2.840.1 [id number] 720523 1904 Methodi 00:00:00 00:00:00 Only Maynor Sánchez 87045.1.1 790 s t 3.430.2.7 Hospit a .3.817932 l .8 2022-02-24 2022-02-24 Travel 1.2.840.1 1.2.167.741 9905 796138 Methodi 00:00:00 00:00:[address] 3.430.2.7 0.2.7.3.698 Ho spita .3.067133 084.8 l .8 2022-02-12 2022-02-12 Emergency ER GUME, [facility] [id number] [place] 08:42:00 13:17:00 JASON -[id number] [facility] 2022-01-26 2022-01-26 Outpatient SANDIE_[facility] 909 [place] 12:18:00 12:18:00 _DOREEN 0719 [facility] 2022-01-17 2022-01-17 Emergency ER Torres, [facility] [id number] [place] 18:06:00 21:18:00 Alexa -[id number] [facility] 2021-12-18 2021-12-18 Office Nick, 1.2.840.1 [id number] 3298 Methodi 10:20:00 11:32:26 Visit Maynor Sánchez 10479.1.1 071 s t 3.430.2.7 Hospit a .3.395526 l .8 2021-12-18 2021-12-18 [facility] [id number] 960 [place] 00:00:00 00:00:00 MAYNOR [address] 2021-12-18 2021-12-18 Travel 1.2.840.1 1.2.779.534 1052 275968 Methodi 00:00:00 00:00:[address] 3.430.2.7 0.2.7.3.698 Ho spita .3.629047 084.8 l .8 2021-12-18 2021-12-18 Outpatient NICK [facility] [id number] 971 [place] 00:00:00 00:00:00 MAYNOR Armenta Method i st 2021-11-30 2021-11-30 Emergency ER [facility] [id number] [place] 01:26:00 04:02:00 [id number] [facility] 2021-11-06 2021-11-06 [place] [id number] [place] 12:33:00 12:33:00 0502 [facility] 2021-11-06 2021-11-06 [place] [id number] [place] 00:00:00 00:00:00 0429 Medical Group 2021-11-06 2021-11-06 Susan MM [place] - [id number] M at[place]or 00:00:00 00:00:[address] 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 2021-11-05 2021-11-05 [place] [id number] [place] 04:51:00 04:51:00 0428 Medical Group 2021-09-14 2021-09-14 [place] [id number] [place] 12:39:00 12:39:00 0307 Medical Group 2021-09-14 2021-09-14 Kia [facility] [place] - [id number] M atagor 00:00:00 00:00:00 Discovery perry Simpson PA-C: [facility] [address] [address] , Ph. 2021-09-14 2021-09-14 Travel 1.2.840.1 1.2.462.214 1765 675492 Methodi 00:00:00 00:00:[address] 3.430.2.7 0.2.7.3.698 Ho spita .3.027088 084.8 l .8 2021-08-10 2021-08-10 [place] [id number] -2022 [place] 11:36:00 11:36:00 0131 [facility] 2021-08-10 2021-08-10 Outpatient Bebetoudela_A MMG [facility] [id number] -2021 [place] 11:36:00 11:36:00 0211 [facility] 2021-08-10 2021-08-10 Outpatient YASMEEN SIMPSON, [facility] [id number] [place] 11:05:00 11:05:00 KIA -[id number] [facility] 2021-06-24 2021-06-24 Inpatient ER Young, [facility] [id number] 79 [place] 00:24:00 13:53:00 Abraham -[id number] [facility] 2021-05-04 2021-05-04 Outpatient Zuniga_F MMG [facility] [id number]- 2020 [place] 10:22:00 10:22:00 1220 [facility] 2021-04-28 2021-04-29 Emergency ER [facility], [facility] [id number] [place] 18:03:00 01:22:00 BARBARA -[id number] [facility] 2021-03-26 2021-03-26 Outpatient Zuniga_F MMG [facility] [id number]- 2020 [place] 10:53:00 10:53:00 0916 [facility] 2021-03-26 2021-03-26 Outpatient YASMEEN Perry, [facility] [id number] [place] 08:44:00 08:44:00 Ronnell -[id number] [facility] 2021-03-26 2021-03-26 Ronnell MM [place] - [id number] [place] 00:00:00 00:00:00 Aracelis Klein Medical MD: [address] [place] [address] [address], [place] [address] , Ph. 2021-03-10 2021-03-10 Outpatient Zuniga_F MMG [facility] [id number]- 2020 [place] 04:23:00 04:23:00 0831 [facility] 2021-03-10 2021-03-10 Ronnell SAVAGE [place] - [id number] [place] 00:00:00 00:00:00 Aracelis Klein MD: [address] [address] , Ph. 2021-02-19 2021-02-19 Emergency ER CELSA MUNGUIA [facility] [id number] [place] 09:17:00 18:11:00 -[id number] [facility] 2021-02-18 2021-02-18 Outpatient Zuniga_F MMG [facility] [id number]- 2020 [place] 10:58:00 10:58:00 0811 [facility] 2021-02-13 2021-02-13 [place] [id number]- 2020 [place] 11:36:00 11:36:00 0806 [facility] 2021-02-11 2021-02-11 Outpatient Zuniga_S MMG [facility] [address]- 2020 [place] 04:11:00 04:11:00 0804 [facility] 2021-01-18 2021-01-18 Emergency ER CHINO, [facility] [id number] [place] 07:23:00 15:33:00 PRISCILA -[id number] [facility] 2021-01-02 2021-01-02 [place] [id number]- 2020 [place] 11:03:00 11:03:00 0625 [facility] 2021-01-02 2021-01-02 [place] [id number]- 2020 [place] 11:03:00 11:03:00 0626 [facility] 2021-01-02 2021-01-02 Radha [facility] [place] - [id number] [place] 00:00:00 00:00:00 Discovery perry Perry 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 2020-07-15 2020-07-15 Outpatient Zuniga_F [facility] [id number]- 2020 [place] 12:50:00 12:50:00 0105 [facility] 2020-07-15 2020-07-15 Outpatient Zuniga_F MMG MMG [id number] [place] 12:50:00 12:50:00 0111 [facility] 2020-07-15 2020-07-15 Tyson [facility] [place] - [id number] [place] 00:00:00 00:00:00 Discovery perry Munoz MD: [address] [place] [address] - [facility] [address], [place] [address] , Ph. [phone] 2020-07-14 2020-07-14 Outpatient Zuniga_F MMG MM [id number] [place] 04:30:00 04:30:00 0104 [facility] 2020-07-14 2020-07-14 Ronnell [facility] - [id number] [place] 00:00:00 00:00:00 Aracelis Klein Medical MD: [address] [place] [address] - [facility] [address], [place] [address] , Ph. 2020-07-10 2020-07-10 Outpatient Zuniga_F MMG MMG [id number] [place] 10:29:00 10:29:00 1231 Medical Group 2020-07-07 2020-07-08 Emergency ER CHINO, [facility] [id number] [place] 23:32:00 12:45:00 PRISCILA [id number] [facility] 2020-02-26 2020-02-26 Outpatient Zuniga_F MMG MMG [id number] [place] 12:39:00 12:39:00 1229 Medical Group 2020-02-26 2020-02-26 Outpatient Zuniga_F MMG MMG [id number] [place] 12:39:00 12:39:00 1230 Medical Group 2020-01-30 2020-01-30 Outpatient Zuniga_F MMG MMG [id number] [place] 08:08:00 08:08:00 07 [facility] 2020-01-30 2020-01-30 Ronnell MM [place] - [id number] [place] 00:00:00 00:00:00 Micky Lozano Medical Medical MD: [address] [place] [address] Family [address], [place] [address] , Ph. 2020-01-29 2020-01-29 Outpatient Raju_P MMG [facility] [id number] [place] 04:40:00 04:40:00 0721 [facility] 2019-11-06 2019-11-06 [place] [id number] [place] 03:29:00 03:29:00 0428 [facility] 2019-11-06 2019-11-06 [place] [id number] [place] 03:29:00 03:29:00 0429 [facility] 2019-03-02 2019-03-02 Outpatient YASMEEN ASCENCIO [facility] [id number] [place] 11:02:00 11:02:00 BYROLYN -[id number] [facility] 2019-02-13 2019-02-13 Emergency ER CHINO, [facility] [id number] [place] 17:16:00 18:34:00 PRISCILA -[id number] [facility] 2018-02-07 2018-02-07 Outpatient YASMEEN LUU [facility] [id number] [place] 09:47:00 09:47:00 SUNNY [place]anes -[id number] [facility] 2017-10-12 2017-10-12 Emergency ER OWO, TOKS [facility] [id number] [place] 17:50:00 19:49:00 -[id number] [facility] 2017-06-01 2017-06-01 Emergency ER OWO, TOKS [facility] [id number] [place] 04:32:00 06:26:00 -[id number] [facility] 2017-02-24 2017-02-24 Outpatient YASMEEN ASCENCIO [facility] [id number] [place] 08:41:00 08:41:00 BYROLYN -[id number] [facility] 2017-01-13 2017-01-13 Emergency ER UGORJI, [facility] [id number] [place] 00:20:00 03:56:00 CLEMENT -[id number] [facility] 2016-09-02 2016-09-02 Emergency ER UGORJI, [facility] [id number] [place] 13:20:00 14:30:00 CLEMENT -[id number] [facility] 2016-04-28 2016-04-29 Emergency ER OWO, TOKS [facility] [id number] [place] 22:59:00 01:22:00 -[id number] [facility] 2015-09-28 2015-09-29 Emergency ER SAEMI, [facility] [id number] [place] 21:04:00 08:15:00 NUNO -[id number] [facility] 2015-05-05 2015-05-05 Emergency ER UGORJI, [facility] [id number] [place] 19:34:00 21:26:00 CLEMENT -[id number] [facility] 2014-11-07 2014-11-08 Emergency ER OWO, TOKS [facility] [id number] [place] 23:26:00 04:30:00 -[id number] [facility] 2014-08-01 2014-08-01 Outpatient EL VALLOPPILLI [facility] D00 [id number] [place] 12:03:00 12:03:00 CRISTOFER LlanesI -[id number] [facility] 2011-12-29 2011-12-29 Emergency ER OTINWA, [facility] [id number] [place] 19:51:00 22:10:00 PARKER -[id number] [facility] 2011-11-12 2011-11-12 Outpatient EL VALLOPPILLI [facility] D00 [id number] [place] 07:58:00 07:58:00 L AMMINI -[id number] [facility] 2011-10-10 2011-10-11 Emergency ER THAKKAR, [facility] [id number] [place] 22:24:00 01:45:00 WASIM -[id number] [facility] 2011-10-06 2011-10-06 Emergency ER JOHNNY, [facility] [id number] [place] 00:27:00 06:30:00 CLEMENT -[id number] [facility] [facility] 2011-09-08 2011-09-08 Outpatient [facility] D00 [id number] [place] 11:57:00 11:57:00 L, AMMINI -[id number] [facility] 2010-06-16 2010-06-17 Emergency ER [place], [facility] [id number] [place] 18:00:00 04:05:00 ZBIGNIEW -[id number] d a [facility] 2010-03-24 2010-03-24 Outpatient [facility] D00 [id number] [place] 14:21:00 14:21:00 L, AMMINI -[id number] [facility] Results Test Description Test Time Test [...] alkaline 60 U/L 40-1 30 phosphatase, total) [facility] 12:[facility]00 Test Item Value Reference Range Interpretation Comments lipase (test code = lipase) 290 U/L 13-60 H [facility] W Auto Differential panel - [id number] 12:07:00 Test Item Value Reference Range Interpretation [...] NRBC# (test code = NRBC#) 0 K/uL [facility]22-[facility]-16 07:40:00 Test Item [...] (test code = normal normal platelet morphology) [facility] 07:12:00 Test Item Value Reference Range Interpretation Comments lipase (test code = lipase) 432 U/L 13-60 H [facility] - Serum [...] U/L 40-130 code = alkaline phosphatase, total) [place] [id number] 07:06:00 Test Item Value Reference Range Interpretation Comments LDH (test code = LDH) 421 U/L 135-225 H [facility] 07:06:00 Test Item Value Reference Range Interpretation Comments LDH (test code = LDH) 421 U/L 135-225 H [facility] Differential [facility] - [id number] 06:46:00 Test Item Value Reference Range Interpretation [...] morph. normal RBC code = morphology comment) [facility] 11:10:00 Test Item Value Reference Range Interpretation Comments lipase (test code = lipase) 478 U/L 13-60 H [facility] - Serum [...] U/L 40-130 code = alkaline phosphatase, total) [facility] W Ordered Manual Differential panel - [id number] 10:52:00 Test Item Value Reference Range Interpretation [...] (test normal normal code = platelet morphology) [facility]2022-06-14 05:46:00 Test Item Value [...] (test code = normal normal platelet morphology) [facility] - [facility] [...] U/L 40-130 code = alkaline phosphatase, total) [facility] 05:30:00 Test Item Value Reference Range Interpretation Comments lipase (test code = lipase) 273 U/L 13-60 H [facility] W Auto Differential panel - [id number] 05:16:00 Test Item Value Reference Range Interpretation [...] morph. normal RBC code = morphology comment) [facility]2022-06-13 11:13:00 Test Item Value [...] (test code = normal normal platelet morphology) [facility] diff (reflexed)2022-06-13 11:13:00 Test Item Value Reference [...] (test code = normal normal platelet morphology) [facility] diff (reflexed)2022-06-13 11:13:00 Test Item Value Reference [...] (test code = normal normal platelet morphology) [facility] diff (reflexed)2022-06-13 11:13:00 Test Item Value Reference [...] (test code = normal normal platelet morphology) [facility] W Auto Differential panel - [id number] 08:26:00 Test Item Value Reference Range Interpretation [...] NRBC# (test code = NRBC#) 0 K/uL [facility] W Auto Differential panel - [id number] 08:26:00 Test Item Value Reference Range Interpretation [...] NRBC# (test code = NRBC#) 0 K/uL [facility] - Serum [...] U/L 40-130 code = alkaline phosphatase, total) [facility] 08:22:00 Test Item Value Reference Range Interpretation Comments lipase (test code = lipase) 226 U/L 13-60 H [facility] metabolic 1999 panel - Serum or Plasma 2022-06-13 08:22:00 [...] U/L 40-130 code = alkaline phosphatase, total) [facility] 08:22:00 Test Item Value Reference Range Interpretation Comments lipase (test code = lipase) 226 U/L 13-60 H [facility] - Serum or Plasma [...] U/L 40-130 code = alkaline phosphatase, total) [facility] 04:36:00 Test Item Value Reference Range Interpretation Comments lipase (test code = lipase) 102 U/L 13-60 H [facility] 04:36:00 Test Item Value Reference Range Interpretation Comments lipase (test code = lipase) 102 U/L 13-60 H [facility] - Serum [...] U/L 40-130 code = alkaline phosphatase, total) [facility] 04:36:00 Test Item Value Reference Range Interpretation Comments lipase (test code = lipase) 102 U/L 13-60 H [facility] 04:36:00 Test Item Value Reference Range Interpretation Comments lipase (test code = lipase) 102 U/L 13-60 H [facility] W Auto Differential panel - [id number] 04:18:00 Test Item Value Reference Range Interpretation [...] NRBC# (test code = NRBC#) 0 K/uL [facility] W Auto Differential panel - [id number] 04:18:00 Test Item Value Reference Range Interpretation [...] NRBC# (test code = NRBC#) 0 K/uL [place] 18793022-12-02 08:39:00 Test Item Value Reference Range Interpretation Comments LDH (test code = LDH) 457 U/L 135-225 H [place] 18793022-12-02 08:39:00 Test Item Value Reference Range Interpretation Comments LDH (test code = LDH) 457 U/L 135-225 [facility] [id number] 08:26:00 Test Item Value Reference Range Interpretation Comments lactic acid (test code = lactic 1.12 mmol/L 0.5-2.2 acid) [facility] [id number] 08:26:00 Test Item Value Reference Range Interpretation Comments lactic acid (test code = lactic 1.12 mmol/L 0.5-2.2 acid) [facility] 07:47:00 Test Item Value Reference Range Interpretation Comments lipase (test code = lipase) 136 U/L 13-60 H [facility] 07:47:00 Test Item Value Reference Range Interpretation Comments lipase (test code = lipase) 136 U/L 13-60 H [facility] - Serum [...] U/L 40-130 code = alkaline phosphatase, total) [facility] - Serum [...] U/L 40-130 code = alkaline phosphatase, total) [facility]2022-06-11 07:30:00 Test Item Value [...] (test code = normal normal platelet morphology) [facility] diff (reflexed)2022-06-11 07:30:00 Test Item Value Reference [...] (test code = normal normal platelet morphology) [facility] W Auto Differential panel - [id number] 07:23:00 Test Item Value Reference Range Interpretation [...] morph. normal RBC code = morphology comment) [facility] W Auto Differential panel - [id number] 07:23:00 Test Item Value Reference Range Interpretation [...] = morphology comment) [facility] panel - Arterial [id number] 15:03:00 Test Item Value Reference Range Interpretation [...] (test code = O2 7.9 mmol/L content) [facility] panel - Arterial [id number] 15:03:00 Test Item Value Reference Range Interpretation [...] (test code = O2 7.9 mmol/L content) [facility]2022-12-01 13:03:00 Test Item Value Reference Range Interpretation Comments blood culture (test code = final report. blood culture) [facility]2022-12-01 13:03:00 Test Item Value Reference Range Interpretation Comments blood culture (test code = final report. blood culture) [facility] diff (reflexed)2022-06-10 07:41:00 Test Item Value Reference [...] (test code = normal normal platelet morphology) [facility] diff (reflexed)2022-06-10 07:41:00 Test Item Value Reference [...] (test code = normal normal platelet morphology) [facility] 07:33:00 Test Item Value Reference Range Interpretation Comments LDH (test code = LDH) 319 U/L 135-225 H [facility] 07:33:00 Test Item Value Reference Range Interpretation Comments LDH (test code = LDH) 319 U/L 135-225 H [facility] - Serum [...] U/L 40-130 code = alkaline phosphatase, total) [facility] 07:28:00 Test Item Value Reference Range Interpretation Comments lipase (test code = lipase) 297 U/L 13-60 H [facility] - Serum [...] U/L 40-130 code = alkaline phosphatase, total) [facility] 07:28:00 Test Item Value Reference Range Interpretation Comments lipase (test code = lipase) 297 U/L 13-60 H [facility] [id number] 07:26:00 Test Item Value Reference Range Interpretation Comments lactic acid (test code = lactic 1.18 mmol/L 0.5-2.2 acid) [facility] [id number] 07:26:00 Test Item Value Reference Range Interpretation Comments lactic acid (test code = lactic 1.18 mmol/L 0.5-2.2 acid) [facility] [id number] 06:53:00 Test Item Value Reference Range Interpretation Comments ionized calcium (test code = 4.17 mg/dL 4.34-5.00 L ionized calcium) [facility] W Auto Differential panel - [id number] 06:53:00 Test Item Value Reference Range Interpretation [...] morph. normal RBC code = morphology comment) [facility] [id number] 06:53:00 Test Item Value Reference Range Interpretation Comments ionized calcium (test code = 4.17 mg/dL 4.34-5.00 L ionized calcium) [facility] W Auto Differential panel - [id number] 06:53:00 Test Item Value Reference Range Interpretation [...] morph. normal RBC code = morphology comment) [facility] 06:34:00 Test Item Value Reference Range Interpretation Comments lipase (test code = lipase) 1018 U/L 13-60 H [facility]22-[facility]-30 06:34:00 Test Item Value Reference Range Interpretation Comments lipase (test code = lipase) 1018 U/L 13-60 H [facility]22-[facility]-30 06:33:00 Test Item Value Reference Range Interpretation Comments LDH (test code = LDH) 296 U[facility]L 135-[facility]00 Test Item Value Reference Range Interpretation Comments LDH (test code = LDH) 296 U/L 135-225 H [facility] - Serum [...] U/L 40-130 code = alkaline phosphatase, total) [facility] - Serum [...] code = alkaline phosphatase, total) [facility] [id number] 06:26:00 Test Item Value Reference Range Interpretation Comments lactic acid (test code = lactic 1.00 mmol/L 0.5-2.2 acid) [facility] [id number] 06:26:00 Test Item Value Reference Range Interpretation Comments lactic acid (test code = lactic 1.00 mmol/L 0.5-2.2 acid) [facility] W Auto Differential panel - [id number] 06:16:00 Test Item Value Reference Range Interpretation [...] NRBC# (test code = NRBC#) 0 K/uL [facility] W Auto Differential panel - [id number] 06:16:00 Test Item Value Reference Range Interpretation [...] NRBC# (test code = NRBC#) 0 K/uL [facility] [id number] 05:06:00 Test Item Value Reference Range Interpretation [...] (test code = 6.828 cholesterol risk ratio) [facility] [id number] 05:06:00 Test Item Value Reference Range Interpretation [...] (test code = 6.828 cholesterol risk ratio) [facility]22-[facility]-29 04:59:00 Test Item Value Reference Range Interpretation Comments lipase (test code = lipase) 1955 U/L 13-60 H [facility]2022-11-29 04:59:00 Test Item Value Reference Range Interpretation Comments lipase (test code = lipase) 1955 U/L 13-60 H [facility]2022-11-29 04:59:00 Test Item Value Reference Range Interpretation Comments lipase (test code = lipase) 1955 U/L 13-60 H [facility]2022-11-29 04:59:00 Test Item Value Reference Range Interpretation Comments lipase (test code = lipase) 1955 U/L 13-60 H [facility] W Auto Differential panel - [id number] 04:07:00 Test Item Value Reference Range Interpretation [...] NRBC# (test code = NRBC#) 0 K/uL [facility] W Auto Differential panel - [id number] 04:07:00 Test Item Value Reference Range Interpretation [...] NRBC# (test code = NRBC#) 0 K/uL [facility] [id number] 18:23:00 Test Item Value Reference Range Interpretation Comments alcohol level (test code = alcohol < 10.0 0.0-10.1 level) [facility] [id number] 18:23:00 Test Item Value Reference Range Interpretation Comments alcohol level (test code = alcohol < 10.0 0.0-10.1 level) [facility] [id number] 11:47:00 Test Item Value Reference Range Interpretation Comments POC glucose (test code = 103 mg/dL 65-99 H Ope rator Name: [id number]) Nba Urbina in [facility] ID: [id number] able: RN Notified Lab Interpretation (test Abnormal code = 72119-4) [facility] [id number] 11:47:00 Test Item Value Reference Range Interpretation Comments POC glucose (test code = 103 mg/dL 65-99 H Ope rator Name: 36844-2) Esmail Quratula in [facility] ID: [id number] able: RN Notified Lab Interpretation (test Abnormal code = 34651-2) [facility]2022-08-23 11:47:00 Test Item Value Reference Range Interpretation Comments POC glucose (test code = 103 mg/dL 65-99 H Ope rator Name: 46125-9) Esmail Quratula in [facility] ID: [id number] able: RN Notified Lab Interpretation (test Abnormal code = 76219-9) [facility]2022-08-23 11:47:00 Test Item Value Reference Range Interpretation Comments POC glucose (test code = 103 mg/dL 65-99 H Ope rator Name: 73740-0) Esmail Quratula in [facility] ID: [id number] able: RN Notified Lab Interpretation (test Abnormal code = 99931-8) [facility]2022-08-23 11:47:00 Test Item Value Reference Range Interpretation Comments POC glucose (test code = 103 mg/dL 65-99 H Ope rator Name: 30648-7) Esmail Quratula in [facility] ID: [id number] able: RN Notified Lab Interpretation (test Abnormal code = 73994-3) [facility]2022-08-23 11:47:00 Test Item Value Reference Range Interpretation Comments POC glucose (test code = 103 mg/dL 65-99 H Ope rator Name: 40031-0) Esmail Quratula in [facility] ID: [id number] able: RN Notified Lab Interpretation (test Abnormal code = 83467-7) [facility]2022-08-23 11:47:00 Test Item Value Reference Range Interpretation Comments POC glucose (test code = 103 mg/dL 65-99 H Ope rator Name: 08996-1) Esmail Quratula in [facility] ID: [id number] able: RN Notified Lab Interpretation (test Abnormal code = 00425-3) [facility]2022-08-23 11:47:00 Test Item Value Reference Range Interpretation Comments POC glucose (test code = 103 mg/dL 65-99 H Ope rator Name: 29248-1) Esmail Quratula in [facility] ID: [id number] able: RN Notified Lab Interpretation (test Abnormal code = 75546-0) [facility]2022-08-23 11:47:00 Test Item Value Reference Range Interpretation Comments POC glucose (test code = 103 mg/dL 65-99 H Ope rator Name: 01923-3) Esmail Quratula in [facility] ID: [id number] able: RN Notified Lab Interpretation (test Abnormal code = 93036-8) [facility]2022-08-23 11:47:00 Test Item Value Reference Range Interpretation Comments POC glucose (test code = 103 mg/dL 65-99 H Ope rator Name: 68179-8) Esmail Quratula in [facility] ID: [id number] able: RN Notified Lab Interpretation (test Abnormal code = 52226-7) [facility]2022-08-23 11:47:00 Test Item Value Reference Range Interpretation Comments POC glucose (test code = 103 mg/dL 65-99 H Ope rator Name: 51723-2) Esmail Quratula in [facility] ID: [id number] able: RN Notified Lab Interpretation (test Abnormal code = 20622-1) [facility]2022-08-23 11:47:00 Test Item Value Reference Range Interpretation Comments POC glucose (test code = 103 mg/dL 65-99 H Ope rator Name: 95304-0) Esmail Quratula in [facility] ID: [id number] able: RN Notified Lab Interpretation (test Abnormal code = 54290-6) [facility]2022-08-23 11:47:00 Test Item Value Reference Range Interpretation Comments POC glucose (test code = 103 mg/dL 65-99 H Ope rator Name: 16439-9) Esmail Quratula in [facility] ID: [id number] able: RN Notified Lab Interpretation (test Abnormal code = 92278-5) [facility]2022-08-23 11:47:00 Test Item Value Reference Range Interpretation Comments POC glucose (test code = 103 mg/dL 65-99 H Ope rator Name: 38078-8) Esmail Quratula in [facility] ID: [id number] able: RN Notified Lab Interpretation (test Abnormal code = 52026-0) [facility]2022-08-23 11:47:00 Test Item Value Reference Range Interpretation Comments POC glucose (test code = 103 mg/dL 65-99 H Ope rator Name: 66153-1) Esmail Quratula in [facility] ID: [id number] able: RN Notified Lab Interpretation (test Abnormal code = 15158-3) [facility]2022-08-23 11:47:00 Test Item Value Reference Range Interpretation Comments POC glucose (test code = 103 mg/dL 65-99 H Ope rator Name: 54379-8) Esmail Quratula in [facility] ID: [id number] able: RN Notified Lab Interpretation (test Abnormal code = 58854-8) [facility]2022-08-23 11:47:00 Test Item Value Reference Range Interpretation Comments POC glucose (test code = 103 mg/dL 65-99 H Ope rator Name: 28368-0) Esmail Quratula in [facility] ID: [id number] able: RN Notified Lab Interpretation (test Abnormal code = 47395-5) [facility]2022-08-23 11:47:00 Test Item Value Reference Range Interpretation Comments POC glucose (test code = 103 mg/dL 65-99 H Ope rator Name: 50247-4) Esmail Quratula in [facility] ID: [id number] able: RN Notified Lab Interpretation (test Abnormal code = 85652-6) [facility]2022-08-23 11:47:00 Test Item Value Reference Range Interpretation Comments POC glucose (test code = 103 mg/dL 65-99 H Ope rator Name: 60082-0) Esmail Quratula in [facility] ID: [id number] able: RN Notified Lab Interpretation (test Abnormal code = 98717-6) [facility]2022-08-23 11:47:00 Test Item Value Reference Range Interpretation Comments POC glucose (test code = 103 mg/dL 65-99 H Ope rator Name: 50435-3) Esmail Quratula in [facility] ID: [id number] able: RN Notified Lab Interpretation (test Abnormal code = 36669-3) [facility]2022-08-23 11:47:00 Test Item Value Reference Range Interpretation Comments POC glucose (test code = 103 mg/dL 65-99 H Ope rator Name: 90590-8) Esmail Quratula in [facility] ID: [id number] able: RN Notified Lab Interpretation (test Abnormal code = 30594-0) [facility]2022-08-23 11:47:00 Test Item Value Reference Range Interpretation Comments POC glucose (test code = 103 mg/dL 65-99 H Ope rator Name: 03118-3) Esmail Quratula in [facility] ID: [id number] able: RN Notified Lab Interpretation (test Abnormal code = 89168-5) [facility]2022-08-23 11:47:00 Test Item Value Reference Range Interpretation Comments POC glucose (test code = 103 mg/dL 65-99 H Ope rator Name: 02526-4) Esmail Quratula in [facility] ID: [id number] able: RN Notified Lab Interpretation (test Abnormal code = 66532-6) [facility]2022-08-23 11:47:00 Test Item Value Reference Range Interpretation Comments POC glucose (test code = 103 mg/dL 65-99 H Ope rator Name: 89830-0) Esmail Quratula in [facility] ID: [id number] able: RN Notified Lab Interpretation (test Abnormal code = 14462-5) [facility]2022-08-23 11:47:00 Test Item Value Reference Range Interpretation Comments POC glucose (test code = 103 mg/dL 65-99 H Ope rator Name: 55575-4) Esmail Quratula in [facility] ID: [id number] able: RN Notified Lab Interpretation (test Abnormal code = 01814-9) [place] 571912-08-23 11:47:00 Test Item Value Reference Range Interpretation Comments POC glucose (test code = 103 mg/dL 65-99 H Ope rator Name: 99096-1) Esmail Quratula in [facility] ID: [id number] able: RN Notified Lab Interpretation (test Abnormal code = 76000-5) [facility]2022-08-23 11:47:00 Test Item Value Reference Range Interpretation Comments POC glucose (test code = 103 mg/dL 65-99 H Ope rator Name: 94060-7) Esmail Quratula in [facility] ID: [id number] able: RN Notified Lab Interpretation (test Abnormal code = 28065-9) [facility]2022-08-23 11:47:00 Test Item Value Reference Range Interpretation Comments POC glucose (test code = 103 mg/dL 65-99 H Ope rator Name: 52366-4) Esmail Quratula in [facility] ID: [id number] able: RN Notified Lab Interpretation (test Abnormal code = 41843-0) [facility]2022-08-23 11:47:00 Test Item Value Reference Range Interpretation Comments POC glucose (test code = 103 mg/dL 65-99 H Ope rator Name: 26659-8) Esmail Quratula in [facility] ID: [id number] able: RN Notified Lab Interpretation (test Abnormal code = 93248-5) [facility]2022-08-23 11:47:00 Test Item Value Reference Range Interpretation Comments POC glucose (test code = 103 mg/dL 65-99 H Ope rator Name: 47846-7) Esmail Quratula in [facility] ID: [id number] able: RN Notified Lab Interpretation (test Abnormal code = 51793-1) [facility]2022-08-23 11:47:00 Test Item Value Reference Range Interpretation Comments POC glucose (test code = 103 mg/dL 65-99 H Ope rator Name: 25970-7) Esmail Quratula in [facility] ID: [id number] able: RN Notified Lab Interpretation (test Abnormal code = 23214-7) [facility] Pre/Post [id number] 20:29:23 Test Item Value Reference Range Interpretation Comments Ventricular rate (test 84 code = 253) Atrial rate (test code = 84 255) [place] interval (test code = 172 266) QRSD [...] Emery MD (2064) on 03/01/2022 3:29:18 PM [facility] Pre/Post [id number] 20:29:23 Test Item Value Reference Range Interpretation Comments Ventricular rate (test code = 253) Atrial rate (test code = 255) MN interval (test code = 266) QRSD interval [...] Emery MD (2064) on 03/01/2022 3:29:18 PM [facility] Pre/Post [id number] 20:29:23 Test Item Value Reference Range Interpretation Comments Ventricular rate (test code = 253) Atrial rate (test code = 255) MN interval (test code = 266) QRSD interval [...] Emery MD (2064) on 03/01/2022 3:29:18 PM [facility] Pre/Post [id number] 20:29:23 Test Item Value Reference Range Interpretation Comments Ventricular rate (test code = 253) Atrial rate (test code = 255) MN interval (test code = 266) QRSD interval [...] Emery MD (2064) on 03/01/2022 3:29:18 PM [facility] Pre/Post [id number] 20:29:23 Test Item Value Reference Range Interpretation Comments Ventricular rate (test code = 253) Atrial rate (test code = 255) [place] interval (test code = 266) QRSD interval [...] Emery MD ([id number]) on 03/01/2022 3:29:18 PM [facility] Pre/Post [id number] 20:29:23 Test Item Value Reference Range Interpretation Comments Ventricular rate (test code = 253) Atrial rate (test code = 255) MN interval (test code = 266) QRSD interval [...] Emery MD (2064) on 03/01/2022 3:29:18 PM [facility] Pre/Post [id number] 20:29:23 Test Item Value Reference Range Interpretation Comments Ventricular rate (test code = 253) Atrial rate (test code = 255) MN interval (test code = 266) QRSD interval [...] Emery MD (2064) on 03/01/2022 3:29:18 PM [facility] Pre/Post [id number] 20:29:23 Test Item Value Reference Range Interpretation Comments Ventricular rate (test code = 253) Atrial rate (test code = 255) MN interval (test code = 266) QRSD interval [...] Emery MD (2064) on 03/01/2022 3:29:18 PM [facility] Pre/Post [id number] 20:29:23 Test Item Value Reference Range Interpretation Comments Ventricular rate (test code = 253) Atrial rate (test code = 255) MN interval (test code = 266) QRSD interval [...] Emery MD (2064) on 03/01/2022 3:29:18 PM [facility] Pre/Post [id number] 20:29:23 Test Item Value Reference Range Interpretation Comments Ventricular rate (test code = 253) Atrial rate (test code = 255) MN interval (test code = 266) QRSD interval [...] Emery MD (2064) on 03/01/2022 3:29:18 PM [facility] Pre/Post [id number] 20:29:23 Test Item Value Reference Range Interpretation Comments Ventricular rate (test code = 253) Atrial rate (test code = 255) MN interval (test code = 266) QRSD interval [...] Emery MD (2064) on 03/01/2022 3:29:18 PM [facility] Pre/Post [id number] 20:29:23 Test Item Value Reference Range Interpretation Comments Ventricular rate (test code = 253) Atrial rate (test code = 255) MN interval (test code = 266) QRSD interval [...] Emery MD (2064) on 03/01/2022 3:29:18 PM [facility] Pre/Post [id number] 20:29:23 Test Item Value Reference Range Interpretation Comments Ventricular rate (test code = 253) Atrial rate (test code = 255) MN interval (test code = 266) QRSD interval [...] Emery MD (2064) on 03/01/2022 3:29:18 PM [facility] Pre/Post [id number] 20:29:23 Test Item Value Reference Range Interpretation Comments Ventricular rate (test code = 253) Atrial rate (test code = 255) MN interval (test code = 266) QRSD interval [...] Emery MD (2064) on 03/01/2022 3:29:18 PM [facility] Pre/Post [id number] 20:29:23 Test Item Value Reference Range Interpretation Comments Ventricular rate (test code = 253) Atrial rate (test code = 255) MN interval (test code = 266) QRSD interval [...] Emery MD (2064) on 03/01/2022 3:29:18 PM [facility] Pre/Post [id number] 20:29:23 Test Item Value Reference Range Interpretation Comments Ventricular rate (test code = 253) Atrial rate (test code = 255) MN interval (test code = 266) QRSD interval [...] Emery MD (2064) on 03/01/2022 3:29:18 PM [facility] Pre/Post [id number] 20:29:23 Test Item Value Reference Range Interpretation Comments Ventricular rate (test code = 253) Atrial rate (test code = 255) MN interval (test code = 266) QRSD interval [...] Emery MD (2064) on 03/01/2022 3:29:18 PM [facility] Pre/Post [id number] 20:29:23 Test Item Value Reference Range Interpretation Comments Ventricular rate (test 84 code = 253) Atrial rate (test code = 84 255) MN interval (test code = 172 266) QRSD [...] Emery MD (2064) on 03/01/2022 3:29:18 PM [facility] Pre/Post [id number] 20:29:23 Test Item Value Reference Range Interpretation Comments Ventricular rate (test 84 code = 253) Atrial rate (test code = 84 255) MN interval (test code = 172 266) QRSD [...] Emery MD (2064) on 03/01/2022 3:29:18 PM [facility] Pre/Post [id number] 20:29:23 Test Item Value Reference Range Interpretation Comments Ventricular rate (test 84 code = 253) Atrial rate (test code = 84 255) MN interval (test code = 172 266) QRSD [...] Emery MD (2064) on 03/01/2022 3:29:18 PM [facility] Pre/Post [id number] 20:29:23 Test Item Value Reference Range Interpretation Comments Ventricular rate (test 84 code = 253) Atrial rate (test code = 84 255) MN interval (test code = 172 266) QRSD [...] Emery MD (2064) on 03/01/2022 3:29:18 PM [facility] Pre/Post [id number] 20:29:23 Test Item Value Reference Range Interpretation Comments Ventricular rate (test 84 code = 253) Atrial rate (test code = 84 255) MN interval (test code = 172 266) QRSD [...] Emery MD (2064) on 03/01/2022 3:29:18 PM [facility] Pre/Post [id number] 20:29:23 Test Item Value Reference Range Interpretation Comments Ventricular rate (test 84 code = 253) Atrial rate (test code = 84 255) MN interval (test code = 172 266) QRSD [...] Emery MD (2064) on 03/01/2022 3:29:18 PM [facility] Pre/Post [id number] 20:29:23 Test Item Value Reference Range Interpretation Comments Ventricular rate (test 84 code = 253) Atrial rate (test code = 84 255) MN interval (test code = 172 266) QRSD [...] Emery MD (2064) on 03/01/2022 3:29:18 PM [facility] Pre/Post [id number] 20:29:23 Test Item Value Reference Range Interpretation Comments Ventricular rate (test 84 code = 253) Atrial rate (test code = 84 255) MN interval (test code = 172 266) QRSD [...] Emery MD (2064) on 03/01/2022 3:29:18 PM [facility] Pre/Post [id number] 20:29:23 Test Item Value Reference Range Interpretation Comments Ventricular rate (test 84 code = 253) Atrial rate (test code = 84 255) MN interval (test code = 172 266) QRSD [...] Emery MD (2064) on 03/01/2022 3:29:18 PM [facility] Pre/Post [id number] 20:29:23 Test Item Value Reference Range Interpretation Comments Ventricular rate (test 84 code = 253) Atrial rate (test code = 84 255) MN interval (test code = 172 266) QRSD [...] Emery MD (2064) on 03/01/2022 3:29:18 PM [facility] Pre/Post [id number] 20:29:23 Test Item Value Reference Range Interpretation Comments Ventricular rate (test 84 code = 253) Atrial rate (test code = 84 255) MN interval (test code = 172 266) QRSD [...] Emery MD (2064) on 03/01/2022 3:29:18 PM [facility] Pre/Post [id number] 20:29:23 Test Item Value Reference Range Interpretation Comments Ventricular rate (test 84 code = 253) Atrial rate (test code = 84 255) MN interval (test code = 172 266) QRSD [...] Emery MD (2064) on 03/01/2022 3:29:18 PM [facility] Pre/Post [id number] 20:29:23 Test Item Value Reference Range Interpretation Comments Ventricular rate (test 84 code = 253) Atrial rate (test code = 84 255) MN interval (test code = 172 266) QRSD [...] Emery MD (2064) on 03/01/2022 3:29:18 PM [facility] Pre/Post [id number] 20:29:23 Test Item Value Reference Range Interpretation Comments Ventricular rate (test code = 253) Atrial rate (test code = 255) MN interval (test code = 266) QRSD interval [...] Emery MD (2064) on 03/01/2022 3:29:18 [facility] [Presence] in Respiratory specimen by TENZIN with probe [id number] 18:27:20 Test Item Value Reference Range Interpretation Comments SARS-CoV-2 (COVID-19) RNA Not detected [Presence] in Respiratory specimen by TENZIN with probe detection (test code = 52684-7) Whether patient is employed in a Unknown healthcare setting (test code = 93537-4) Whether the patient has symptoms Unknown related to condition of interest (test code = 46587-5) Whether the patient was Unknown hospitalized for condition of interest (test code = 23147-3) Whether the patient was admitted Unknown to intensive care unit (ICU) for condition of interest (test code = 00684-7) Whether patient resides in a Unknown congregate care setting (test code = 86019-7) status (test code = Unknown 87581-2) Date and time of symptom onset Unknown (test code = 34385-6) [facility] RNA [Presence] in Respiratory specimen by TENZIN with probe [id number] 01:00:31 Test Item Value Reference Range Interpretation Comments SARS-CoV-2 (COVID-19) RNA Not detected [Presence] in Respiratory specimen by TENZIN with probe detection (test code = 46551-0) Whether patient is employed in a Unknown healthcare setting (test code = 82526-7) Whether the patient has symptoms Unknown related to condition of interest (test code = 47287-9) Whether the patient was Unknown hospitalized for condition of interest (test code = 69956-7) Whether the patient was admitted Unknown to intensive care unit (ICU) for condition of interest (test code = 29606-4) Whether patient resides in a Unknown congregate care setting (test code = 26212-4) status (test code = Unknown 75140-9) Date and time of symptom onset Unknown (test code = 14510-8) [facility] CoV + SARS CoV 2 Ag panel, [place], upper respiratory [id number] 10:40:00 Test Item Value Reference Range Interpretation Comments RAPID SARS COV (test code = RAPID negative SARS COV) RAPID FLU A (test code = RAPID FLU negative A) RAPID FLU B (test code = RAPID FLU negative B) [facility] - Serum or [id number] 06:34:00 Test Item Value Reference Range Interpretation Comments cholesterol level (test code = 169 mg/dL 150-200 cholesterol level) triglycerides level (test code = 93 mg/dL <150 triglycerides level) HDL cholesterol (test code = HDL 52 mg/dL >55 L cholesterol) LDL cholesterol direct (test code = 108 mg/dL <100 H LDL cholesterol direct) cholesterol risk ratio (test code = 3.250 cholesterol risk ratio) [facility]/volume] in [id number] 00:00:00 Test Item Value Reference Range Interpretation Comments Hemoglobin A1c [Mass/volume] in Blood 5.3 % 4.0-6.0 (test code = 99536-4) [facility]Un[facility] Serum or [id number] 00:00:00 Test Item Value Reference Range Interpretation Comments Thyrotropin [Units/volume] in 0.44 uIU/mL 0.36-3.74 Serum or Plasma (test code = 3016-3) [facility]
[2023-02-26] MEDS ORDERED: Phenylephrine HCl 10 MG/ML 1 ML VIAL ONE (20:28)
[2023-02-26] MEDS ORDERED: MORPHINE 4 MG/ML SYR ONE (21:30)
[2023-02-26] MEDS ORDERED: NA CHLORIDE 0.9% 250 ML ONE (21:37)
--- NOTE | 2023-02-26 22:10 | ER ---
Nurse's Notes [facility] Name: Francesco Avelar Age: 27 yrs Sex: Male : 1995 Arrival Date: 02/26/2023 Time: 19:26 Bed 14 Private MD: Diagnosis: Priapism, recurrent Presentation: 02/26 19:55 Chief complaint: Patient states: Priapism since 3pm today. Took home meds as prescribed nj1 but has not gotten better. Coronavirus screen: Vaccine status: Patient reports receiving the 2nd dose of the covid vaccine. Ebola Screen: Patient denies travel to an Ebola-affected area in the 21 days before illness onset. Initial Sepsis Screen: Does the patient meet any 2 criteria? HR > 90 bpm. No. Patient's initial sepsis screen is negative. Does the patient have a suspected source of infection? No. Patient's initial sepsis screen is negative. Risk Assessment: Do you want to hurt yourself or someone else? Patient reports no desire to harm self or others. Onset of symptoms was February 26, 2023 at 15:00. 19:55 Method Of Arrival: Ambulatory [facility] 20:47 Acuity: MCKENZIE 3 ll3 Historical: - Allergies: 19:58 Imitrex; nj1 - PMHx: 19:58 adhd; Asthma; Bipolar disorder; priapism; spinal stenosis; nj1 - PSHx: 19:58 L5 S1 laminectomy; nj1 - Immunization history:: Client reports receiving the 2nd dose of the Covid vaccine. - Social history:: Smoking status: Patient reports the use of cigarette tobacco products, smokes one-half pack cigarettes per day. Screenin:47 [facility] ED Fall Risk Assessment (Adult) History of falling in the last 3 months, ll3 including since admission No falls in past 3 months (0 pts) Confusion or Disorientation No (0 pts) Intoxicated or Sedated No (0 pts) Impaired Gait No (0 pts) Mobility Assist Device Used No (0 pt) Altered Elimination No (0 pt) Score/Fall Risk Level 0 - 2 = Low Risk Oriented to surroundings, Maintained a safe environment, Educated pt \T\ family on fall prevention, incl call for assistance when getting out of bed. Abuse screen: Denies threats or abuse. Denies injuries from another. Nutritional screening: No deficits noted. Tuberculosis screening: No symptoms or risk factors identified. Assessment: 20:46 General: Appears uncomfortable, Behavior is calm, cooperative. Pain: Complains of pain ll3 in pelvis. : Reports Prolonged erection. Vital Signs: 19:55 BP 147 / 83; Pulse 106; Resp 18; Temp 98.8; Pulse Ox 99% ; Weight 103.42 kg; Height 5 nj1 ft. 11 in. ; Pain 5/10; 21:29 BP 127 / 79; Pulse 97; Resp 16; Pulse Ox 100% on R/A; ll3 19:55 Body Mass Index 31.80 (103.42 kg, 180.34 cm) nj1 19:55 Pain Scale: Adult [facility] ED Course: 19:29 Patient arrived in ED. im 19:34 Radha Bustamante MD is Attending Physician. sd2 19:59 Arm band placed on right wrist. nj1 20:47 Triage completed. ll3 20:47 Patient has correct armband on for positive identification. Bed in low position. Call ll3 light in reach. Side rails up X 1. Adult w/ patient. 22:10 Minesh Vivas MD is Referral Physician. sd2 22:30 No provider procedures requiring assistance completed. Patient did not have IV access ll3 during this emergency room visit. Administered Medications: 20:45 Drug: phenylephrine 1 vials {Note: Administered by Radha Bustamante MD.} Route: Sub-Q; ll3 Site: abdomen; 22:30 Follow up: Response: No adverse reaction; Marked relief of symptoms ll3 21:25 Drug: morphine IM 4 mg Route: IM; Site: right deltoid; ll3 22:30 Follow up: Response: No adverse reaction; Pain is decreased ll3 Medication: 20:47 VIS not applicable for this client. ll3 Outcome: 22:10 Discharge ordered by . sd2 22:30 Discharged to home ambulatory, with family. ll3 22:30 Condition: stable 22:30 Discharge instructions given to patient, Instructed on discharge instructions, follow up and referral plans. Demonstrated understanding of instructions, follow-up care. 22:31 Patient left the ED. ll3 Signatures: Gavin Galan RN RN 3 Radha Bustamante MD MD sd2 Sari Medina RN RN nj1 Altman, Mily im
--- NOTE | 2023-02-26 22:10 | EDPHYS ---
Physician Documentation [facility] Name: Francesco Avelar Age: 27 yrs Sex: Male : 1995 Arrival Date: 02/26/2023 Time: 19:26 Bed 14 Private MD: ED Physician Radha Bustamante HPI: 02/26 21:02 This 27 yrs old Male presents to ER via Ambulatory with complaints of Penile sd2 Problem. 21:02 27-year-old male presents with chief complaint of recurrent priapism. He has a sd2 significant history of this and has been seen at our facility multiple times for the same. He reports that this episode started around 3 PM this afternoon and he was unable to treated at home with his terbutaline and Sudafed. He currently sees Dr. Vivas in the area with urology but missed his last appointment due to a tire issue and has yet to reschedule.. Historical: - Allergies: 19:58 Imitrex; nj1 - PMHx: 19:58 adhd; Asthma; Bipolar disorder; priapism; spinal stenosis; nj1 - PSHx: 19:58 L5 S1 laminectomy; nj1 - Immunization history:: Client reports receiving the 2nd dose of the Covid vaccine. - Social history:: Smoking status: Patient reports the use of cigarette tobacco products, smokes one-half pack cigarettes per day. ROS: 21:02 Constitutional: Negative for fever, chills, and weight loss, Eyes: Negative for injury, sd2 pain, redness, and discharge, Cardiovascular: Negative for chest pain, palpitations, and edema, Respiratory: Negative for shortness of breath, cough, wheezing. Abdomen/GI: Negative for abdominal pain, nausea, vomiting, diarrhea. : Negative for dysuria, frequency or hematuria. Positive for priapism. MS/Extremity: Negative for injury and deformity, Skin: Negative for injury, rash, and discoloration. Exam: 21:02 Constitutional: This is a well developed, well nourished patient who is awake, alert, sd2 and in no acute distress. Head/Face: Normocephalic, atraumatic. Eyes: EOMI, normal conjunctiva bilaterally Abdomen/GI: Soft, non-tender, with normal bowel sounds. No guarding or rebound. No evidence of tenderness throughout. Male : Erect uncircumcised penis with no discharge or lesions. No scrotal swelling or edema. No inguinal LAD. Skin: Warm, dry with normal turgor. Normal color with no rashes, no lesions, and no evidence of cellulitis. MS/ Extremity: Pulses equal, no cyanosis. Neurovascular intact. Full, normal range of motion. Ambulatory without difficulty. Vital Signs: 19:55 BP 147 / 83; Pulse 106; Resp 18; Temp 98.8; Pulse Ox 99% ; Weight 103.42 kg; Height 5 nj1 ft. 11 in. ; Pain 5/10; 21:29 BP 127 / 79; Pulse 97; Resp 16; Pulse Ox 100% on R/A; ll3 19:55 Body Mass Index 31.80 (103.42 kg, 180.34 cm) nj1 19:55 Pain Scale: Adult nj1 Procedures: 21:02 Performed Corpus cavernosal injection. 0.5 mL of phenylephrine 10 mg/mL was diluted in sd2 9.5 mL normal saline and 0.5 mL was injected with a 27 G needle after thorough cleansing of the area on the right side of the penis approximately 2 cm above the base at the 2:00 position. Pt experienced relief and detumescence less than 5 mins later. Ice pack applied and morphine given for pain control. pt tolerated procedure well without complication.. MDM: 20:07 Patient medically screened. sd2 21:02 Differential diagnosis: priapism, spinal stenosis, nerve block among others. Data sd2 reviewed: vital signs, nurses notes, old medical records, prior ER visits and procedures for same symptoms. I considered the following discharge prescriptions or medication management in the emergency department Medications were administered in the Emergency Department. See MAR. Care significantly affected by the following chronic conditions: Priapism. Counseling: I had a detailed discussion with the patient and/or guardian regarding the historical points, exam findings, and any diagnostic results supporting the discharge/admit diagnosis, the need for outpatient follow up, to return to the emergency department if symptoms worsen or persist or if there are any questions or concerns that arise at home. Response to treatment: the patient's symptoms have resolved after treatment. 22:09 ED course: Pt feeling improved. No recurrence. Will discharge home with outpatient sd2 urology follow up. . 02/26 21:02 Order name: Ice pack; Complete Time: 21:26 sd2 Administered Medications: 20:45 Drug: phenylephrine 1 vials {Note: Administered by Radha Bustamante MD.} Route: Sub-Q; ll3 Site: abdomen; 22:30 Follow up: Response: No adverse reaction; Marked relief of symptoms ll3 21:25 Drug: morphine IM 4 mg Route: IM; Site: right deltoid; ll3 22:30 Follow up: Response: No adverse reaction; Pain is decreased ll3 Disposition Summary: 02/26/23 22:10 Discharge Ordered Location: Home sd2 Problem: an acute exacerbation sd2 Symptoms: are resolved sd2 Condition: Stable sd2 Diagnosis - Priapism, recurrent sd2 Followup: sd2 - With: - When: 2 - 3 days - Reason: Recheck today's complaints, Continuance of care, Re-evaluation by your physician Discharge Instructions: - Discharge Summary Sheet sd2 - Priapism sd2 Forms: - Medication Reconciliation Form sd2 - Thank You Letter sd2 - Antibiotic Education sd2 - Prescription Opioid Use sd2 - Patient Portal Instructions sd2 - Leadership Thank You Letter sd2 Signatures: Gavin Galan RN RN 3 Radha Bustamante MD MD sd2 Sari Medina RN RN nj1
[2023-02-26 22:35] VITALS: TEMP 98.8
[2023-02-26 22:36] VITALS: BP 127/79; O2SAT 100
== END 2023-02-26 22:31 | disposition home or self-care (01) ==
LOC: ER 19:26
DX: N48.30 Priapism, unspecified (principal); F90.9 Attention-deficit hyperactivity disorder, unspecified type; F31.9 Bipolar disorder, unspecified; M48.00 Spinal stenosis, site unspecified; F17.210 Nicotine dependence, cigarettes, uncomplicated
CPT/HCPCS: 96372; 99284; J2371; J7050

== ENCOUNTER 2023-05-21 16:30 | Emergency (ER) | payer BC, OTHER ==
--- OUTSIDE RECORDS SUMMARY | 2023-05-21 16:39 | XMS REPORT | Continuity of Care Document ---
:1995 Author Organization [facility] t Address [address] [facility] [place]. [address] [place] [address] Support Name Relationship Address Phone BALA CLARK Unavailable [address] [phone] [place] [address] GREGORY DUMONT Unavailable [address] [phone] [place] [address] PRISCILA MAGANA MD Emergency Provider [address] [place] [address] PHYSICIAN, NO Primary Care Physician Unavailable Unavailab CLAIR Art Next of Kin [address] [place] [address] MD PRISCILA MAGANA Emergency Provider [address] [place] [address] MD [facility] Primary Care Physician [address] [place] [address] MD CELSA MUNGUIA Emergency Provider [address] [place] [address] MD BARBARA VELAZQUEZ Emergency Provider [address] [place] [address] MD SHI ANAYA Emergency Provider [address] [place] [address] DO ABRAHAM MCCRACKEN Admitting Provider [address] [place] [address] MD HARRISON RICO Emergency Provider [address] [place] [address] MD ALEXA TORRES Emergency Provider [address] [place] [address] MD JASON DUNAWAY Emergency Provider [address] [place] [address] [phone] [place] [address] Care Team Providers Name Role Phone Ronnell Diaz MD Primary Care Physician Ronnell Diaz Attending Clinician Unavailable NAHUN KHANNA Attending Clinician Unavailable MAYNOR ROMERO Attending Clinician Unavailable Barrie Douglas RN Attending Clinician Unavailable Maynor Romero MD Attending Clinician Asked, No Pcp Attending Clinician Unavailable Bonita Attending Clinician Unavailable Rich Salgado Attending Clinician RICH POND Attending Clinician Unavailable Gloria Attending Clinician Unavailable Ronnell Diaz Attending Clinician Unavailable BRENDA MALDONADO Attending Clinician Unavailable Tatiana Xavier MA Attending Clinician Unavailable Neymar Barron Attending Clinician Unavailable JASON DUNAWAY Attending Clinician [...] Unavailable SERGEY THAKKAR Attending Clinician Unavailable ZBIGNIEW IDAS Attending Clinician Unavailable Bonita Admitting Clinician Unavailable Gloria Admitting Clinician Unavailable Ronnell Diaz Admitting Clinician Unavailable MAYNOR ROMERO Admitting Clinician Unavailable BASILIO DIALLO Admitting Clinician Unavailable ANDREIA_DOREEN Admitting Clinician Unavailable Calvin_A Admitting Clinician Unavailable Abraham Mccracken Admitting Clinician Unavailable Orlando_S Admitting Clinician Unavailable Denny_Chinyere Admitting Clinician Unavailable Payers Payer Name Policy Type Policy Number Effective Date Expiration Date S ource [place] [id number] 2014 (PPO) 00:00:00 [facility] [id number] 2019 [place] 00:00:00 ([place] [id number] [place] [facility] - [id number] [facility] Problems Condition Condition Condition Status Onset [...] Added automatic ally from request for surgery [id number] Priapism Priapism Disease Active Metho di 8-17 st 00:00: Hospita 00 l [id number] Jock itch Problem Com mon [facility] [id number] Scrotal Problem Common abscess [facility] Tinnitus Tinnitus Problem Active [place] [...] sumatrip Active Unknown Commo n porras porras [facility] Family History Family Member Diagnosis Comments Start Date Stop Date Source Natural father Doan's palsy [facility] Natural mother Fibromyalgia [facility] Social History Social Habit Start Date Stop Date Quantity Comments Source History of Tobacco Current Smoker [facility] Gender identity [facility] Sexual orientation [facility] Alcohol intake 2023-05-19 2023-05-19 Current drinker [facility] dist 00:00:00 00:00:00 of alcohol Hospital (finding) History of Social 2023-05-19 2023-05-[address] function 00:00:00 00:00:00 Hospital Tobacco use and 2022-03-01 2022-03-01 Smokeless [facility] exposure 00:00:00 00:00:00 tobacco non-user Hospital Alcohol Comment 2022-03-01 2022-03-01 EVERY OTHER Methodis t 00:00:00 00:00:00 [facility] Sex Assigned At [birth year] [facility] 00:[facility]00 Hospital Smoking Status Start Date Stop Date Source Heavy Tobacco Smoker [facility] Smokes tobacco daily 2022-03-01 00:00:00 [facility] Medications Ordered Filled Start Stop Current Ordering Indication Dosage Frequency Signature Comments Components Source Medication Medication Date Date Medication? Clinician (SIG) Name Name budesonide- 2022-07 Yes 2{puff} Q.5D Inhale 2 Methodi formoteroL 1-[address] (SYMBICORT) 12:28: (two) Hospi ta 160-4.5 41 times a l mcg/actuati day. on inhaler busPIRone 2022-07 Yes 5mg Q.5D Take 1 Method i (BUSPAR) 5 07-19 tablet (5 st MG tablet 12:28: mg total) Hos félix 41 by mouth 2 l (two) times a day. gabapentin 2022-07 Yes 600mg QD Take 2 Meth joanna (NEURONTIN) 07-[address] 300 mg 12:28: (600 mg Hospita capsule 41 total) by l mouth daily. hydrOXYzine 2022-07 Yes 25mg QD Take 1 Meth joanna (ATARAX) 25 07-19 tablet (25 st MG tablet 12:28: mg total) Hos félix 41 by mouth l daily. levalbutero 2022-07 Yes 2{puff} Q2D Inhale 2 Methodi l (XOPENEX 1-[address] HFA) 45 12:28: every Hospita mcg/actuati 41 other day. l on inhaler Bactrim DS Bactrim DS No 1{table BID Bactrim DS 800-160 MG 800-160 MG 5-18 t} 800-160 MG 00:00: 00 Bactrim DS Bactrim DS 0 No 1{table BID Bactrim DS 800-160 MG 800-160 MG 5-18 t} 800-160 MG 00:00: 00 Sildenafil Sildenafil No 1{table QD Sildenafil Citrate 20 Citrate 20 3-23 t} Citrate 20 MG MG 00:00: MG 00 Sildenafil Sildenafil No 1{table QD Sildenafil Citrate 20 Citrate 20 3-23 t} Citrate 20 MG MG 00:00: MG 00 Terbutaline Terbutaline 2021-07 No Terbutalin Sulfate 2.5 Sulfate 2.5 07-19 e Sulfate MG MG 00:00: 2.5 MG 00 methylPREDN 2021- No Use as Met hodi ISolone 03-19 09-[address] (MEDROL 00:00: 04:59 by package [...] st (MEDROL 00:00: 04:59 by package Hos félxi DOSEPAK) 4 00 :00 instructio l mg [...] instructio l mg tablet ns methylPREDN 2022-0 2021- No Use as Met hodi ISolone [...] methylPREDN 2021-0 2021- No [facility]-[address] (MEDROL 00:00: 04:59 by package Hos félix DOSEPAK) 4 00 :00 instructio l mg tablet ns methylPREDN 2021-0 2021- No Use as Met hodi ISolone 03-[address] (MEDROL 00:00: 04:59 by package Hos félix DOSEPAK) 4 00 :00 instructio l mg tablet ns methylPREDN 2021-0 2021- No Use as [facility] ISolone 03-[address] (MEDROL 00:00: 04:59 by package Hos félix DOSEPAK) 4 00 :00 instructio l mg tablet ns methylPREDN 2021-0 2021- No Use as Met hodi ISolone 03-[address] (MEDROL 00:00: 04:59 by package Hos félix DOSEPAK) 4 00 :00 instructio l mg tablet ns methylPREDN 2021-0 2021- No Use as Met [facility] ISolone 03-[address] (MEDROL 00:00: 04:59 by package Hos félix DOSEPAK) 4 00 :00 instructio l mg tablet ns methylPREDN 2021-0 2021- No Use as Met [facility] ISolone 03-[address] (MEDROL 00:00: 04:59 [...] a l mcg/actuati day. on inhaler budesonide- 2-0 Yes 2{puff} Q.5D [...] 10 total) by l mouth daily. budesonide- 2-0 Yes 2{puff} Q.5D Inhale 2 [...] félix 10 by mouth l daily. hydrOXYzine 2022-0 Yes 25mg QD Take 1 Meth joanna (ATARAX) 25 8-23 tablet (25 st MG tablet 11:57: mg total) Hos félix 10 by mouth l daily. levalbutero 2021-0 Yes 2{puff} Q2D Inhale 2 Methodi l (XOPENEX 8-[address] HFA) 45 11:57: every Hospita mcg/actuati 10 other day. l on inhaler levalbutero 2021-0 Yes 2{puff} Q2D Inhale 2 [...] Q6H Take 1 Metho di (ULTRAM) 50 8- 08-25 tablet (50 s t mg tablet [...] up to 5 days .acute pain. traMADoL 39673 50mg Q6H Take 1 Metho di (ULTRAM) 50 8-19 08-25 tablet (50 s t mg tablet 00:00: 04:59 mg total) Ho spita 00 :00 by mouth l every 6 (six) hours as needed for moderate pain for up to 5 days .acute pain. traMADoL 15593 50mg Q6H Take 1 Metho di (ULTRAM) 50 8-19 08-25 tablet (50 s t mg tablet 00:00: 04:59 mg total) Ho spita 00 :00 by mouth l every 6 (six) hours as needed for moderate pain for up to 5 days .acute pain. traMADoL 17950 50mg Q6H Take 1 Metho di (ULTRAM) 50 8-19 08-25 tablet (50 s t mg tablet 00:00: 04:59 mg total) Ho spita 00 :00 by mouth l every 6 (six) hours as needed for moderate pain for up to 5 days .acute pain. traMADoL 92194 50mg Q6H Take 1 Metho di (ULTRAM) 50 8-19 08-25 tablet (50 s t mg tablet 00:00: 04:59 mg total) Ho spita 00 :00 by mouth l every 6 (six) hours as needed for moderate pain for up to 5 days .acute pain. traMADoL 79045 50mg Q6H Take 1 Metho di (ULTRAM) [...] up to 5 days .acute pain. traMADoL 42603 50mg Q6H Take 1 Metho di (ULTRAM) 50 8-19 08-25 tablet (50 s t mg tablet 00:00: 04:59 mg total) Ho spita 00 :00 by mouth l every 6 (six) hours as needed for moderate pain for up to 5 days .acute pain. traMADoL 87980 50mg Q6H Take 1 Metho di (ULTRAM) 50 8-19 08-25 tablet (50 s t mg tablet 00:00: 04:59 mg total) Ho spita 00 :00 by mouth l every 6 (six) hours as needed for moderate pain for up to 5 days .acute pain. traMADoL 68921 50mg Q6H Take 1 Metho di (ULTRAM) 50 8-19 08-25 tablet (50 s t mg tablet 00:00: 04:59 mg total) Ho spita 00 :00 by mouth l every 6 (six) hours as needed for moderate pain for up to 5 days .acute pain. traMADoL 54145 50mg Q6H Take 1 Metho di (ULTRAM) 50 8-19 08-25 tablet (50 s t mg tablet 00:00: 04:59 mg total) Ho spita 00 :00 by mouth l every 6 (six) hours as needed for moderate pain for up to 5 days .acute pain. traMADoL 28893 50mg Q6H Take 1 Metho di (ULTRAM) 50 8-19 08-25 tablet (50 s t mg tablet 00:00: 04:59 mg total) Ho spita 00 :00 by mouth l every 6 (six) hours as needed for moderate pain for up to 5 days .acute pain. traMADoL 79142 50mg Q6H Take 1 Metho di (ULTRAM) [...] up to 5 days .acute pain. traMADoL 37473 50mg Q6H Take 1 Metho di (ULTRAM) 50 8-19 08-25 tablet (50 s t mg tablet 00:00: 04:59 mg total) Ho spita 00 :00 by mouth l every 6 (six) hours as needed for moderate pain for up to 5 days .acute pain. traMADoL 25542 50mg Q6H Take 1 Metho di (ULTRAM) 50 8-19 08-25 tablet (50 s t mg tablet 00:00: 04:59 mg total) Ho spita 00 :00 by mouth l every 6 (six) hours as needed for moderate pain for up to 5 days .acute pain. traMADoL 57274 50mg Q6H Take 1 Metho di (ULTRAM) 50 8-19 08-25 tablet (50 s t mg tablet 00:00: 04:59 mg total) Ho spita 00 :00 by mouth l every 6 (six) hours as needed for moderate pain for up to 5 days .acute pain. traMADoL 50541 50mg Q6H Take 1 Metho di (ULTRAM) 50 8-19 08-25 tablet (50 s t mg tablet 00:00: 04:59 mg total) Ho spita 00 :00 by mouth l every 6 (six) hours as needed for moderate pain for up to 5 days .acute pain. traMADoL 80214 50mg Q6H Take 1 Metho di (ULTRAM) [...] 5 days .acute pain. traMADoL 2021- No [id number] 50mg Q6H Take 1 Metho di (ULTRAM) 50 8-19 08-25 tablet (50 s t mg tablet 00:00: 04:59 mg total) Ho spita 00 :00 by mouth l every 6 (six) hours as needed for moderate pain for up to 5 days .acute pain. traMADoL 2021- No [id number] 50mg Q6H Take 1 Metho di (ULTRAM) 50 8-19 08-25 tablet (50 s t mg tablet 00:00: 04:59 mg total) Ho spita 00 :00 by mouth l every 6 (six) hours as needed for moderate pain for up to 5 days .acute pain. traMADoL 2021- No [id number] 50mg Q6H Take 1 Metho di (ULTRAM) [...] 2021- No INJECT ONE Met hodi Maintena -18 08-17 (1) UNIT st 400 mg 00:00: [...] 30 DAYS. ROUTE NEEDED FOR 30 DAYS. betamethaso betamethaso No betamethas [place] valerate ne valerate one d a 0.1 % 0.1 % valerate Medical topical topical 0.1 % Group cream APPLY cream APPLY topical A THIN A THIN cream LAYER TO LAYER TO APPLY A THE THE THIN LAYER AFFECTED AFFECTED TO THE AREA(S) BY AREA(S) BY AFFECTED TOPICAL TOPICAL AREA(S) BY ROUTE ONCE ROUTE ONCE TOPICAL DAILY DAILY ROUTE ONCE DAILY levalbutero levalbutero No levalbuter [place] HFA 45 l HFA 45 ol HFA 45 da mcg/actuati mcg/actuati mcg/actuat Medical on aerosol on aerosol ion Sumi up inhaler inhaler aerosol INHALE 2 INHALE 2 inhaler PUFFS EVERY PUFFS EVERY INHALE 2 6 HOURS BY 6 HOURS BY PUFFS INHALATION INHALATION EVERY 6 ROUTE ROUTE HOURS BY NEEDED. NEEDED. INHALATION ROUTE NEEDED. pantoprazol pantoprazol No pantoprazo [place] 40 mg e 40 mg le 40 mg da tablet,ayana tablet,ayana tablet,del Medical yed release yed release ayed G roup TAKE 1 TAKE 1 release TABLET TABLET TAKE 1 EVERY DAY EVERY DAY TABLET BY ORAL BY ORAL EVERY DAY ROUTE FOR ROUTE FOR BY ORAL 90 DAYS. 90 DAYS. ROUTE FOR 90 DAYS. prednisone prednisone No 1 Q1D prednisone [place] 10 mg 10 mg 10 mg da tablet Take tablet Take tablet Medical 1 tablet 1 tablet Take 1 Group every day every day tablet by oral by oral every day route for route for by oral 10 days. 10 days. route for 10 days. sildenafil sildenafil No sildenafil [place] (pulmonary (pulmonary (pulmonary da hypertensio hypertensio hypertensi Medical n) 20 mg n) 20 mg on) 20 mg Gr oup tablet TAKE tablet TAKE tablet ONE (1) ONE (1) TAKE ONE TABLET(S) TABLET(S) (1) BY MOUTH BY MOUTH TABLET(S) ONCE A DAY. ONCE A DAY. BY MOUTH ONCE A DAY. Symbicort Symbicort No 2puff(s BID [...] DOSES MAX. tramadol 50 tramadol 50 No 1 Q7H tramadol [place] mg tablet mg tablet 50 mg da Take 1 Take 1 tablet Medical tablet tablet Take 1 Group every 6-8 every 6-8 tablet hours by hours by every 6-8 oral route oral route hours by as needed as needed oral route for 10 for 10 as needed days. days. for 10 days. Melatonin 1 Melatonin 1 No 4{ml_at QD Melatonin MG/4ML MG/4ML _bedtim 1 MG/4ML e_as_ne eded} Sudafed 30 Sudafed 30 No 2{table QID Sudafed 30 MG MG ts_as_n MG eeded} Sudafed 30 Sudafed 30 No 2{table QID Sudafed 30 MG MG ts_as_n MG eeded} Terbutaline Terbutaline No Terbutalin Sulfate 2.5 Sulfate 2.5 e Sulfate MG MG 2.5 MG Melatonin 1 Melatonin 1 No 4{ml_at QD Melatonin MG/4ML MG/4ML _bedtim 1 MG/4ML e_as_ne eded} Sudafed 30 Sudafed 30 No 2{table QID Sudafed 30 MG MG ts_as_n MG eeded} Terbutaline Terbutaline No Terbutalin Sulfate 2.5 Sulfate 2.5 e Sulfate MG MG 2.5 MG Melatonin 1 Melatonin 1 No 4{ml_at QD Melatonin MG/4ML MG/4ML _bedtim 1 MG/4ML e_as_ne eded} Immunizations Ordered Filled Immunization Date Status Comments [facility] e Immunization Name Name Td (adult) Td (adult) 2022-11-26 Completed Hand preservative free preservative free 12:13:00 Medical [facility] PFIZER COVID-19 2020-10-16 Completed [facility] VACCINATION 00:00:00 [facility] PFIZER COVID-19 2020-10-16 Completed [facility] VACC[facility]ATION 00:00:00 [facility] PFIZER COVID-19 2020-10-16 Completed [facility] VACC[facility]ATION 00:00:00 [facility] PFIZER COVID-19 2020-10-16 Completed [facility] VACC[facility]ATION 00:00:00 [facility] PFIZER COVID-19 2020-10-16 Completed [facility] VACC[facility]ATION 00:00:00 [facility] PFIZER COVID-19 2020-10-16 Completed [facility] VACC[facility]ATION 00:00:00 [facility] PFIZER COVID-19 2020-10-16 Completed [facility] VACC[facility]ATION 00:00:00 [facility] PFIZER COVID-19 2020-10-16 Completed [facility] VACC[facility]ATION 00:00:00 [facility] PFIZER COVID-19 2020-10-16 Completed [facility] VACC[facility]ATION 00:00:00 [facility] PFIZER COVID-19 2020-10-16 Completed [facility] VACC[facility]ATION 00:00:00 [facility] PFIZER COVID-19 2020-10-16 Completed [facility] VACC[facility]ATION 00:00:00 [facility] PFIZER COVID-19 2020-10-16 Completed [facility] VACC[facility]ATION 00:00:00 [facility] PFIZER COVID-19 2020-10-16 Completed [facility] VACC[facility]ATION 00:00:00 [facility] PFIZER COVID-19 2020-10-16 Completed [facility] VACCINATION 00:00:00 [facility] PFIZER COVID-19 2020-10-16 Completed [facility] VACCINATION 00:00:00 [facility] PFIZER COVID-19 2020-10-16 Completed [facility] VACC[facility]ATION 00:00:00 [facility] PFIZER COVID-19 2020-10-16 Completed [facility] VACC[facility]ATION 00:00:00 [facility] PFIZER COVID-19 2020-10-16 Completed [facility] VACC[facility]ATION 00:00:00 [facility] PFIZER COVID-19 2020-10-16 Completed [facility] VACCINATION 00:00:00 [facility] PFIZER COVID-19 2020-10-16 Completed [facility] VACC[facility]ATION 00:00:00 [facility] PFIZER COVID-19 2020-10-16 Completed [facility] VACC[facility]ATION 00:00:00 [facility] PFIZER COVID-19 2020-10-16 Completed [facility] VACC[facility]ATION 00:00:00 [facility] PFIZER COVID-19 2020-10-16 Completed [facility] VACC[facility]ATION 00:00:00 [facility] PFIZER COVID-19 2020-10-16 Completed [facility] VACCINATION 00:00:00 [facility] PFIZER COVID-19 2020-10-16 Completed [facility] VACC[facility]ATION 00:00:00 [facility] PFIZER COVID-19 2020-10-16 Completed [facility] VACCINATION 00:00:00 [facility] PFIZER COVID-19 2020-10-16 Completed [facility] VACCINATION 00:00:00 [facility] PFIZER COVID-19 2020-10-16 Completed [facility] VACC[facility] 00:00:00 [facility] PFIZER COVID-19 2020-10-16 Completed [facility] VACCINATION 00:00:00 [facility] PFIZER COVID-19 2020-10-16 Completed [facility] VACC[facility]ATION 00:00:00 [facility] PFIZER COVID-19 2020-10-16 Completed [facility] VACC[facility]ATION 00:00:00 [facility] COVID-19, mRNA, COVID-19, mRNA, 2020-10-16 Completed Adryan ulloa LNP-S, PF, 30 LNP-S, PF, 30 00:00:00 Medical Group mcg/0.3 mL dose mcg/0.3 mL dose (Pfizer-BioNTech) - (Pfizer-BioNTech) - ML ML PFIZER COVID-19 2020-09-25 Completed [facility] V[facility] 00:00:00 [facility] PFIZER COVID-19 2020-09-25 Completed [facility] VACC[facility] 00:00:00 [facility] PFIZER COVID-19 2020-09-25 Completed [facility] VACCINATION 00:00:00 [facility] PFIZER COVID-19 2020-09-25 Completed [facility] VACCINATION 00:00:00 [facility] PFIZER COVID-19 2020-09-25 Completed [facility] VACCINATION 00:00:00 [facility] PFIZER COVID-19 2020-09-25 Completed [facility] VACC[facility]ATION 00:00:00 [facility] PFIZER COVID-19 2020-09-25 Completed [facility] VACC[facility]ATION 00:00:00 [facility] PFIZER COVID-19 2020-09-25 Completed [facility] VACC[facility]ATION 00:00:00 [facility] PFIZER COVID-19 2020-09-25 Completed [facility] VACC[facility]ATION 00:00:00 [facility] PFIZER COVID-19 2020-09-25 Completed [facility] VACC[facility] 00:00:00 [facility] PFIZER COVID-19 2020-09-25 Completed [facility] VACC[facility] 00:00:00 [facility] PFIZER COVID-19 2020-09-25 Completed [facility] VACC[facility] 00:00:00 [facility] PFIZER COVID-19 2020-09-25 Completed [facility] VACC[facility]ATION 00:00:00 [facility] PFIZER COVID-19 2020-09-25 Completed [facility] VACC[facility]ATION 00:00:00 [facility] PFIZER COVID-19 2020-09-25 Completed [facility] VACC[facility]ATION 00:00:00 [facility] PFIZER COVID-19 2020-09-25 Completed [facility] VACC[facility]ATION 00:00:00 [facility] PFIZER COVID-19 2020-09-25 Completed [facility] VACCINATION 00:00:00 [facility] PFIZER COVID-19 2020-09-25 Completed [facility] VACC[facility] 00:00:00 [facility] PFIZER COVID-19 2020-09-25 Completed [facility] VACCINATION 00:00:00 [facility] PFIZER COVID-19 2020-09-25 Completed [facility] VACCINATION 00:00:00 [facility] PFIZER COVID-19 2020-09-25 Completed [facility] VACC[facility]ATION 00:00:00 [facility] PFIZER COVID-19 2020-09-25 Completed [facility] VACC[facility]ATION 00:00:00 [facility] PFIZER COVID-19 2020-09-25 Completed [facility] VACC[facility]ATION 00:00:00 [facility] PFIZER COVID-19 2020-09-25 Completed [facility] VACC[facility]ATION 00:00:00 [facility] PFIZER COVID-19 2020-09-25 Completed [facility] VACC[facility]ATION 00:00:00 [facility] PFIZER COVID-19 2020-09-25 Completed [facility] VACC[facility] 00:00:00 [facility] PFIZER COVID-19 2020-09-25 Completed [facility] VACC[facility] 00:00:00 [facility] PFIZER COVID-19 2020-09-25 Completed [facility] VACC[facility] 00:00:00 [facility] PFIZER COVID-19 2020-09-25 Completed [facility] VACC[facility] 00:00:00 [facility] PFIZER COVID-19 2020-09-25 Completed [facility] VACC[facility]ATION 00:00:00 [facility] PFIZER COVID-19 2020-09-25 Completed [facility] VACC[facility]ATION 00:00:00 [facility], mRNA, 2020-09-25 Completed Cornelius laila LNP-S, PF, 30 LNP-S, PF, 30 00:00:00 Medical Group mcg/0.3 mL dose mcg/0.3 mL dose (Liquidations [employer]) - (Liquidations [employer]) - ML ML influenza, influenza, 2018-05-11 Completed Hand injectable, injectable, 00:00:00 Medical Grou p quadrivalent, quadrivalent, preservative free - preservative free - ML ML influenza, influenza, 2017-06-27 Completed Hand seasonal, seasonal, 00:00:00 Medical Group injectable, injectable, preservative free - preservative free - ML ML DTaP, unspecified DTaP, unspecified 1998-10-20 Completed Hand formulation - ML formulation - ML 00:00:00 Ms dical Group Hib (PRP-T) - ML Hib (PRP-T) - ML 1998-10-20 Completed [place] 00:00:00 [facility] Group varicella - ML varicella - ML 1998-07-10 Completed [facility] [employer] 00:00:00 Medical Group MMR - ML MMR - ML 1998-07-10 Completed Hand 00:00:00 Medical Group DTaP, unspecified DTaP, unspecified 1997 Completed Hand formulation - ML formulation - ML 00:00:00 Me dical Group Hep B, adolescent Hep B, adolescent 1995 Completed Hand or pediatric - ML or pediatric - ML 00:00:00 Medical Group OPV - ML OPV - ML 1995 Completed Hand 00:00:00 Medical Group Hib, unspecified Hib, unspecified 1997 Completed [place] formulation - ML formulation - ML 00:00:00 Me dical Group DTaP, unspecified DTaP, unspecified 1997 Completed Hand formulation - ML formulation - ML 00:00:00 Me dical Group OPV - ML OPV - ML 1995 Completed Hand 00:00:00 Medical Group Hib, unspecified Hib, unspecified 1997 Completed [place] formulation - ML formulation - ML 00:00:00 Me dical Group DTaP, unspecified DTaP, unspecified 1997 Completed Hand formulation - ML formulation - ML 00:00:00 Me dical Group OPV - ML OPV - ML 1995 Completed Hand 00:00:00 Medical Group Hib, unspecified Hib, unspecified 1997 Completed [place] formulation - ML formulation - ML 00:00:00 Me dical Group Hep B, adolescent Hep B, adolescent 1997 Completed Hand or pediatric - ML or pediatric - ML 00:00:00 Medical Group Hep B, adolescent Hep B, adolescent 1995 Completed Hand or pediatric - ML or pediatric - ML 00:00:00 Medical Group PFIZER COVID-19 Unknown Completed [facility] PFIZER COVID-19 Unknown Completed [facility] Td (adult) Td (adult) Unknown Completed Hand preservative free preservative free Medical Group DTaP, unspecified DTaP, unspecified Unknown Completed Hand formulation - ML formulation - ML Me dical Group Hib (PRP-T) - ML Hib (PRP-T) - ML Unknown Completed [place] [facility] varicella - ML varicella - ML Unknown Completed [facility] [employer] Medical Group MMR - ML MMR - ML Unknown Completed Hand Medical Group DTaP, unspecified DTaP, unspecified Unknown Completed Hand formulation - ML formulation - ML Me dical Group Hep B, adolescent Hep B, adolescent Unknown Completed Hand or pediatric - ML or pediatric - [facility] OPV - ML OPV - ML Unknown Completed [facility] Hib, unspecified Hib, unspecified Unknown Completed [place] formulation - ML formulation - [facility] DTaP, unspecified DTaP, unspecified Unknown Completed Hand formulation - ML formulation - [facility] OPV - ML OPV - ML Unknown Completed [facility] Hib, unspecified Hib, unspecified Unknown Completed [place] formulation - ML formulation - [facility] DTaP, unspecified DTaP, unspecified Unknown Completed Hand formulation - ML formulation - [facility] OPV - ML OPV - ML Unknown Completed [facility] Hib, unspecified Hib, unspecified Unknown Completed [place] formulation - ML formulation - [facility] Hep B, adolescent Hep B, adolescent Unknown Completed Hand or pediatric - ML or pediatric - [facility] Hep B, adolescent Hep B, adolescent Unknown Completed Hand or pediatric - ML or pediatric - [facility] COVID-19, mRNA, COVID-19, mRNA, Unknown Completed Cornelius laila LNP-S, PF, 30 LNP-S, PF, 30 [facility] mcg/0.3 mL dose mcg/0.3 mL dose (Pfizer-BioNTech) - (Pfizer-BioNTech) - ML ML COVID-19, mRNA, COVID-19, mRNA, Unknown Completed Cornelius laila LNP-S, PF, 30 LNP-S, PF, [facility] mcg/0.3 mL dose mcg/0.3 mL dose (Pfizer-BioNTech) - (Pfizer-BioNTech) - ML ML influenza, influenza, Unknown Completed Hand injectable, injectable, [facility] p quadrivalent, quadrivalent, preservative free - preservative free - ML ML influenza, influenza, Unknown Completed Hand seasonal, seasonal, [facility] Group injectable, injectable, preservative free - preservative free - ML ML Vital Signs Vital Name Observation Time Observation Value Comments Source Body Weight 2023-05-17 00:00:00 3688 [oz_av] [facility] BP Diastolic 2023-05-17 00:00:00 77 mm[Hg] [facility] Height 2023-05-17 00:00:00 71 [in_i] [facility] BMI (Body Mass 2023-05-17 00:00:00 32.1 kg/m2 [facility]) Group BP Systolic 2023-05-17 00:00:00 121 mm[Hg] [facility] BP Diastolic 2022-11-25 00:00:00 82 mm[Hg] [facility] Height 2022-11-25 00:00:00 71 [in_i] [facility] BMI (Body Mass 2022-11-25 00:00:00 31.7 kg/m2 [facility]) Group BP Systolic 2022-11-25 00:00:00 128 mm[Hg] [facility] Body Weight 2022-11-25 00:00:00 3632 [oz_av] [facility] BP Diastolic 2022-11-17 00:00:00 68 mm[Hg] [facility] Height 2022-11-17 00:00:00 71 [in_i] [facility] BMI (Body Mass 2022-11-17 00:00:00 32 kg/m2 [facility] Group BP Systolic 2022-11-17 00:00:00 105 mm[Hg] [facility] Body Weight 2022-11-17 00:00:00 3673 [oz_av] [facility] height 2022-09-30 11:30:00 71 [in_i] [facility] weight 2022-09-30 11:30:00 231.4 [lb_av] [facility] temperature 2022-09-30 11:30:00 97.6 [degF] [facility] bmi 2022-09-30 11:30:00 32.27 kg/m2 [facility] oximetry 2022-09-30 11:30:00 96 % [facility] respiratory rate 2022-09-30 11:30:00 18 /min [facility] on [facility] blood pressure 2022-09-30 11:30:00 121 mm[Hg] [facility] blood pressure 2022-09-30 11:30:00 77 mm[Hg] [facility] - diastolic [facility] BP Diastolic 2022-06-25 00:00:00 84 mm[facility]Hg] [facility] 2022-06-25 00:00:00 71 [in_i] [facility] BMI (Body Mass 2022-06-25 00:00:00 33.5 kg/m2 [facility]) Group BP Systolic 2022-06-25 00:00:00 133 mm[Hg] [facility] Body Weight 2022-06-25 00:00:00 3848 [oz_av] [facility] BP Diastolic 2022-06-21 00:00:00 73 mm[Hg] [facility] Height 2022-06-21 00:00:00 71 [in_i] [facility] BMI (Body Mass 2022-06-21 00:00:00 34.4 kg/m2 [facility]) Group BP Systolic 2022-06-21 00:00:00 112 mm[Hg] [facility] Body Weight 2022-06-21 00:00:00 3942 [oz_av] [facility] weight 2022-05-19 10:30:00 254.6 [lb_av] [facility] temperature 2022-05-19 10:30:00 97.6 [degF] [facility] bmi 2022-05-19 10:30:00 35.51 kg/m2 [facility] oximetry 2022-05-19 10:30:00 98 % [facility] respiratory rate 2022-05-19 10:30:00 18 /min Comm on [facility] blood pressure 2022-05-19 10:30:00 35 mm[Hg] [facility] blood pressure 2022-05-19 10:30:00 78 mm[Hg] [facility] height 2022-05-19 10:30:00 71 [in_i] [facility] BP Diastolic 2022-03-09 00:00:00 77 mm[Hg] [facility] Height 2022-03-09 00:00:00 71 [in_i] [facility] BMI (Body Mass 2022-03-09 00:00:00 35.6 kg/m2 [facility] [employer] Medical Index) Group BP Systolic 2022-03-09 00:00:00 122 mm[Hg] [facility] Body Weight 2022-03-09 00:00:00 4078.4 [oz_av] [facility] BP Diastolic 2021-11-06 00:00:00 83 mm[Hg] [facility] Height 2021-11-06 00:00:00 71 [in_i] [facility] BMI (Body Mass 2021-11-06 00:00:00 [facility] BP Systolic 2021-11-06 00:00:00 127 mm[Hg] [facility] Body Weight 2021-11-06 00:00:00 4020 [oz_av] [facility] Height 2021-09-14 00:00:00 71 [in_i] [facility] BMI (Body Mass 2021-09-14 00:00:00 34.6 kg/m2 [facility] Body Weight 2021-09-14 00:00:00 3968 [oz_av] [facility] BP Diastolic 2021-03-26 00:00:00 75 mm[Hg] [facility] Height 2021-03-26 00:00:00 71 [in_i] [facility] BMI (Body Mass 2021-03-26 00:00:00 31.1 kg/m2 [facility] BP Systolic 2021-03-26 00:00:00 118 mm[Hg] [facility] Body Weight 2021-03-26 00:00:00 3569 [oz_av] [facility] BP Diastolic 2021-03-10 00:00:00 69 mm[Hg] [facility] Height 2021-03-10 00:00:00 71 [in_i] [facility] BMI (Body Mass 2021-03-10 00:00:00 30.8 kg/m2 [facility]) Group BP Systolic 2021-03-10 00:00:00 111 mm[Hg] [facility] Body Weight 2021-03-10 00:00:00 3529 [oz_av] [facility] BP Diastolic 2021-01-02 00:00:00 63 mm[Hg] [facility] Height 2021-01-02 00:00:00 71 [in_i] [facility] BMI (Body Mass 2021-01-02 00:00:00 30.3 kg/m2 [facility]) Group BP Systolic 2021-01-02 00:00:00 112 mm[Hg] [facility] Body Weight 2021-01-02 00:00:00 3481 [oz_av] [facility] BP Diastolic 2020-07-15 00:00:00 71 mm[Hg] [facility] Height 2020-07-15 00:00:00 71 [in_i] [facility] BMI (Body Mass 2020-07-15 00:00:00 29.7 kg/m2 [facility]) Group BP Systolic 2020-07-15 00:00:00 117 mm[Hg] [facility] Body Weight 2020-07-15 00:00:00 213 [lb_av] [facility] BP Diastolic 2020-07-14 00:00:00 71 mm[Hg] [facility] Height 2020-07-14 00:00:00 71 [in_i] [facility] BMI (Body Mass 2020-07-14 00:00:00 29.7 kg/m2 [facility]) Group BP Systolic 2020-07-14 00:00:00 117 mm[Hg] [facility] Body Weight 2020-07-14 00:00:00 3411 [oz_av] [facility] Height 2020-01-30 00:00:00 71 [in_i] [facility] BMI (Body Mass 2020-01-30 00:00:00 30 kg/m2 [facility] [employer] [employer] [facility]) Group Body Weight 2020-01-30 00:00:00 3440 [oz_av] [facility] Systolic blood 2023-05-19 21:02:00 103 mm[Hg] [facility] Hospital pressure Diastolic blood 2023-05-19 21:02:00 74 [facility] Heart rate 2023-05-19 21:02:00 71 /min [facility] Oxygen saturation in 2023-05-19 21:02:00 96 /min [facility] Arterial blood by Pulse oximetry Body height 2023-05-19 18:26:00 180.3 cm [facility] Body weight 2023-05-19 18:26:00 104.327 kg [facility] BMI 2023-05-19 18:26:00 32.08 kg/m2 [facility] Respiratory rate 2023-05-19 18:25:00 16 /min [facility] Respiratory rate 2022-03-02 15:38:00 16 /min [facility] Oxygen saturation in 2022-03-02 15:38:00 97 /min [facility] Arterial blood by Pulse oximetry Systolic blood 2022-03-02 15:38:00 114 mm[Hg] [facility] pressure Diastolic blood 2022-03-02 15:38:00 67 mm[facility]Hg[facility] Heart rate 2022-03-02 15:38:00 63 /min [facility] Body temperature 2022-03-02 15:30:00 36.33 Elle [facility] Body height 2022-03-01 15:26:00 180.3 cm [facility] Body weight 2022-03-01 15:26:00 115.123 kg [facility] BMI 2022-03-01 15:26:00 35.40 kg/m2 [facility] Procedures Procedure Date / Time Performing Clinician Source Performed CT POST MYELOGRAM LUMBAR 2023-05-19 21:20:41 [facility] IR MYELOGRAM LUMB INCL 2023-05-19 20:07:00 [facility] INJ W S&I XR LUMBAR SPINE 2 OR 3 VW 2023-04-15 15:06:26 [facility] US, scrotum 2022-11-17 00:00:00 [facility] dical [facility] US, duplex, penis, 2022-03-09 00:00:00 [facility] complete Group OR [place] < 1 HOUR 2022-03-02 18:31:17 Maynor Romero [facility] 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 2022-03-02 13:31:57 Alfreda Duvall [facility] SPINAE NH AN ELECTIVE 2022-03-02 12:35:00 [facility] LAMINECTOMY, LUMBAR 2022-03-02 12:29:00 Maynor Romero [facility] POC GLUCOSE 2022-03-02 11:43:00 Maynor Romero [facility] Back Surgery 2022-03-02 00:00:00 [facility] dical [facility] XR CHEST 2 VW 2022-03-01 17:28:02 Maynor Romero [facility] ECG PRE/POST OP 2022-03-01 16:38:21 [facility] Romero [facility] HEMOGLOBIN A1C 2022-03-01 16:18[facility]AL[facility] 2022-03-01 [facility] RT-PCR CBC WITH PLATELET AND 2022-03-01 15:48:00 Maynor Romero [facility] DIFFERENTIAL PARTIAL THROMBOPLASTIN 2022-03-01 15:48:00 Maynor Romero [facility] TIME (PTT) PROTHROMBIN TIME WITH INR 2022-03-01 15:48:00 Maynor Romero [facility] CT POST MYELOGRAM LUMBAR 2022-02-25 18:14:57 [facility] LUMB INCL 2022-02-25 17:55:[address] [facility] INJ W S&I COVID-19 QUALITATIVE 2022-02-24 22:40:00 [facility] RT-PCR COMPREHENSIVE METABOLIC 2022-02-24 22:40:00 Federico Shetty [facility] PANEL CBC WITH PLATELET AND 2022-02-24 22:40[facility] DIFFERENTIAL TROPONIN T 2022-02-24 22:40:00 [facility] B NATRIURETIC PEPTIDE 2022-02-24 22:40:00 [facility] ESTIMATED GFR 2022-02-24 22:40[facility]00 [facility] GENERAL 2022-02-24 22:27:[address] [facility] [address] SPINE EXTERNAL STUDY 2022-02-12 16:40:33 Maynor Romero [facility] XR ABDOMEN 2 VW AP W 2021-12-18 16:48:33 Maynor Romero [facility] UPRIGHT AND/OR DECUBITUS XR LUMBAR SPINE COMPLETE 2021-12-18 15:33:23 Maynor Romero [facility] W BENDING XR SPINE EXTERNAL STUDY 2021-08-10 17:26:30 Maynor Romero [facility] XR, lumbar spine 2021-03-10 00:00:00 [facility] Plan of Care Planned Activity Planned Date Details Comments Source Future Scheduled Test 2023-05-21 Pneumococcal Vaccine: [facility] 03:32:24 Pediatrics (0 to 5 Years) and At-Risk Patients (6 to 64 Years) (1 - PCV) [code = Pneumococcal Vaccine: Pediatrics (0 to 5 Years) and At-Risk Patients (6 to 64 Years) (1 - PCV)] Future Scheduled Test 2023-05-21 Hepatitis C screening [facility] 03:32:24 (procedure) [code = [id number]] Future Scheduled Test 2023-05-21 COVID-19 VACCINE (3 - [facility] 03:32:24 season) [code = COVID-19 VACCINE ( season)] Future Scheduled Test 2023-02-14 Pneumococcal Vaccine: [facility] 07:55:29 Pediatrics (0 to 5 Years) and At-Risk Patients (6 to 64 Years) (1 - PCV) [code = Pneumococcal Vaccine: Pediatrics (0 to 5 Years) and At-Risk Patients (6 to 64 Years) (1 - PCV)] Future Scheduled Test 2023-02-14 Hepatitis C screening [facility] 07:55:29 (procedure) [code = [id number]] Future Scheduled Test 2023-02-14 COVID-19 VACCINE ([address] [place] [address] 07:55:29 Pfizer series) [code = COVID-19 VACCINE (3 - Pfizer series)] Future Scheduled Test 2023-02-14 INFLUENZA VACCINE [facility] 07:55:29 [code = INFLUENZA VACCINE] Future Scheduled Test 2022-12-27 Pneumococcal Vaccine: [facility] 14:16:08 Pediatrics (0 to 5 Years) and At-Risk Patients (6 to 64 Years) (1 - PCV) [code = Pneumococcal Vaccine: Pediatrics (0 to 5 Years) and At-Risk Patients (6 to 64 Years) (1 - PCV)] Future Scheduled Test 2022-12-27 Hepatitis C screening [facility] 14:16:08 (procedure) [code = [id number]] Future Scheduled Test 2022-12-27 COVID-19 VACCINE ([address] [place] [address] 14:16:08 Pfizer series) [code = COVID-19 VACCINE (3 - Pfizer series)] Future Scheduled Test 2022-12-27 INFLUENZA VACCINE [facility] 14:16:08 [code = INFLUENZA VACCINE] Future Scheduled Test 2022-12-27 Pneumococcal Vaccine: [facility] 14:16:08 Pediatrics (0 to 5 Years) and At-Risk Patients (6 to 64 Years) (1 - PCV) [code = Pneumococcal Vaccine: Pediatrics (0 to 5 Years) and At-Risk Patients (6 to 64 Years) (1 - PCV)] Future Scheduled Test 2022-12-27 Hepatitis C screening [facility] 14:16:08 (procedure) [code = [id number]] Future Scheduled Test 2022-12-27 COVID-19 VACCINE ([address] [place] [address] 14:16:08 Pfizer series) [code = COVID-19 VACCINE (3 - Pfizer series)] Future Scheduled Test 2022-12-27 INFLUENZA VACCINE [facility] 14:16:08 [code = INFLUENZA VACCINE] Diagnostic Test [...] Diagnostic Test 2022-11-17 lipid panel, serum [facility] [employer] [employer] [facility] Pending 00:00:00 [code = lipid panel, Group serum] Future Scheduled Test 2022-10-26 Pneumococcal Vaccine: [facility] 12:10:59 Pediatrics (0 to 5 Years) and At-Risk Patients (6 to 64 Years) (1 - PCV) [code = Pneumococcal Vaccine: Pediatrics (0 to 5 Years) and At-Risk Patients (6 to 64 Years) (1 - PCV)] Future Scheduled Test 2022-10-26 Hepatitis C screening [facility] 12:10:59 (procedure) [code = [id number]] Future Scheduled Test 2022-10-26 COVID-19 VACCINE (3 - [facility] 12:10:59 Booster for Pfizer series) [code = COVID-19 VACCINE (3 - Booster for Pfizer series)] Future Scheduled Test 2022-10-26 INFLUENZA VACCINE [facility] 12:10:59 [code = INFLUENZA VACCINE] Future Scheduled Test 2022-10-26 Pneumococcal Vaccine: [facility] 12:10:59 Pediatrics (0 to 5 Years) and At-Risk Patients (6 to 64 Years) (1 - PCV) [code = Pneumococcal Vaccine: Pediatrics (0 to 5 Years) and At-Risk Patients (6 to 64 Years) (1 - PCV)] Future Scheduled Test 2022-10-26 Hepatitis C screening [facility] 12:10:59 (procedure) [code = [id number]] Future Scheduled Test 2022-10-26 COVID-19 VACCINE ([address] [place] [address] 12:10:59 Booster for Pfizer series) [code = COVID-19 VACCINE (3 - Booster for Pfizer series)] Future Scheduled Test 2022-10-26 INFLUENZA VACCINE [facility] 12:10:59 [code = INFLUENZA VACCINE] Future Scheduled Test 2022-10-26 Pneumococcal Vaccine: [facility] 12:10:59 Pediatrics (0 to 5 Years) and At-Risk Patients (6 to 64 Years) (1 - PCV) [code = Pneumococcal Vaccine: Pediatrics (0 to 5 Years) and At-Risk Patients (6 to 64 Years) (1 - PCV)] Future Scheduled Test 2022-10-26 Hepatitis C screening [facility] 12:10:59 (procedure) [code = [id number]] Future Scheduled Test 2022-10-26 COVID-19 VACCINE ([address] [place] [address] 12:10:59 Booster for Pfizer series) [code = COVID-19 VACCINE (3 - Booster for Pfizer series)] Future Scheduled Test 2022-10-26 INFLUENZA VACCINE [facility] 12:10:59 [code = INFLUENZA VACCINE] Future Scheduled Test 2022-10-26 Pneumococcal Vaccine: [facility] 12:10:59 Pediatrics (0 to 5 Years) and At-Risk Patients (6 to 64 Years) (1 - PCV) [code = Pneumococcal Vaccine: Pediatrics (0 to 5 Years) and At-Risk Patients (6 to 64 Years) (1 - PCV)] Future Scheduled Test 2022-10-26 Hepatitis C screening [facility] 12:10:59 (procedure) [code = [id number]] Future Scheduled Test 2022-10-26 COVID-19 VACCINE ([address] [place] [address] 12:10:59 Booster for Pfizer series) [code = COVID-19 VACCINE (3 - Booster for Pfizer series)] Future Scheduled Test 2022-10-26 INFLUENZA VACCINE [facility] 12:10:59 [code = INFLUENZA VACCINE] Future Scheduled Test 2022-10-12 Pneumococcal Vaccine: [facility] 03:52:45 Pediatrics (0 to 5 Years) and At-Risk Patients (6 to 64 Years) (1 - PCV) [code = Pneumococcal Vaccine: Pediatrics (0 to 5 Years) and At-Risk Patients (6 to 64 Years) (1 - PCV)] Future Scheduled Test 2022-10-12 Hepatitis C screening [facility] 03:52:45 (procedure) [code = [id number]] Future Scheduled Test 2022-10-12 COVID-19 VACCINE ([address] [place] [address] 03:52:45 Booster for Pfizer series) [code = COVID-19 VACCINE (3 - Booster for Pfizer series)] Future Scheduled Test 2022-10-12 INFLUENZA VACCINE [facility] 03:52:45 [code = INFLUENZA VACCINE] Future Scheduled Test 2022-10-12 Pneumococcal Vaccine: [facility] 03:52:45 Pediatrics (0 to 5 Years) and At-Risk Patients (6 to 64 Years) (1 - PCV) [code = Pneumococcal Vaccine: Pediatrics (0 to 5 Years) and At-Risk Patients (6 to 64 Years) (1 - PCV)] Future Scheduled Test 2022-10-12 Hepatitis C screening [facility] 03:52:45 (procedure) [code = [id number]] Future Scheduled Test 2022-10-12 COVID-19 VACCINE ([address] [place] [address] 03:52:45 Booster for Pfizer series) [code = COVID-19 VACCINE (3 - Booster for Pfizer series)] Future Scheduled Test 2022-10-12 INFLUENZA VACCINE [facility] 03:52:45 [code = INFLUENZA VACCINE] Future Scheduled Test 2022-10-12 Pneumococcal Vaccine: [facility] 03:52:45 Pediatrics (0 to 5 Years) and At-Risk Patients (6 to 64 Years) (1 - PCV) [code = Pneumococcal Vaccine: Pediatrics (0 to 5 Years) and At-Risk Patients (6 to 64 Years) (1 - PCV)] Future Scheduled Test 2022-10-12 Hepatitis C screening [facility] 03:52:45 (procedure) [code = [id number]] Future Scheduled Test 2022-10-12 COVID-19 VACCINE ([address] [place] [address] 03:52:45 Booster for Pfizer series) [code = COVID-19 VACCINE (3 - Booster for Pfizer series)] Future Scheduled Test 2022-10-12 INFLUENZA VACCINE [facility] 03:52:45 [code = INFLUENZA VACCINE] Future Scheduled Test 2022-09-07 Pneumococcal Vaccine: [facility] 19:21:49 Pediatrics (0 to 5 Years) and At-Risk Patients (6 to 64 Years) (1 - PCV) [code = Pneumococcal Vaccine: Pediatrics (0 to 5 Years) and At-Risk Patients (6 to 64 Years) (1 - PCV)] Future Scheduled Test 2022-09-07 Hepatitis C screening [facility] 19:21:49 (procedure) [code = [id number]] Future Scheduled Test 2022-09-07 COVID-19 VACCINE ([address] [place] [address] 19:21:49 Booster for Pfizer series) [code = COVID-19 VACCINE (3 - Booster for Pfizer series)] Future Scheduled Test 2022-09-07 INFLUENZA VACCINE [facility] 19:21:49 [code = INFLUENZA VACCINE] Future Scheduled Test 2022-09-07 Pneumococcal Vaccine: [facility] 19:21:49 Pediatrics (0 to 5 Years) and At-Risk Patients (6 to 64 Years) (1 - PCV) [code = Pneumococcal Vaccine: Pediatrics (0 to 5 Years) and At-Risk Patients (6 to 64 Years) (1 - PCV)] Future Scheduled Test 2022-09-07 Hepatitis C screening [facility] 19:21:49 (procedure) [code = [id number]] Future Scheduled Test 2022-09-07 COVID-19 VACCINE ([address] [place] [address] 19:21:49 Booster for Pfizer series) [code = COVID-19 VACCINE (3 - Booster for Pfizer series)] Future Scheduled Test 2022-09-07 INFLUENZA VACCINE [facility] 19:21:49 [code = INFLUENZA VACCINE] Future Scheduled Test 2022-09-07 Pneumococcal Vaccine: [facility] 19:21:49 Pediatrics (0 to 5 Years) and At-Risk Patients (6 to 64 Years) (1 - PCV) [code = Pneumococcal Vaccine: Pediatrics (0 to 5 Years) and At-Risk Patients (6 to 64 Years) (1 - PCV)] Future Scheduled Test 2022-09-07 Hepatitis C screening [facility] 19:21:49 (procedure) [code = [id number]] Future Scheduled Test 2022-09-07 COVID-19 VACCINE ([address] [place] [address] 19:21:49 Booster for Pfizer series) [code = COVID-19 VACCINE (3 - Booster for Pfizer series)] Future Scheduled Test 2022-09-07 INFLUENZA VACCINE [facility] 19:21:49 [code = INFLUENZA VACCINE] Future Scheduled Test 2022-09-07 Pneumococcal Vaccine: [facility] 19:21:49 Pediatrics (0 to 5 Years) and At-Risk Patients (6 to 64 Years) (1 - PCV) [code = Pneumococcal Vaccine: Pediatrics (0 to 5 Years) and At-Risk Patients (6 to 64 Years) (1 - PCV)] Future Scheduled Test 2022-09-07 Hepatitis C screening [facility] 19:21:49 (procedure) [code = [id number]] Future Scheduled Test 2022-09-07 COVID-19 VACCINE ([address] [place] [address] 19:21:49 Booster for Pfizer series) [code = COVID-19 VACCINE (3 - Booster for Pfizer series)] Future Scheduled Test 2022-09-07 INFLUENZA VACCINE [facility] 19:21:49 [code = INFLUENZA VACCINE] Future Scheduled Test 2022-06-26 Pneumococcal Vaccine: [facility] 18:09:46 Pediatrics (0 to 5 Years) and At-Risk Patients (6 to 64 Years) (1 - PCV) [code = Pneumococcal Vaccine: Pediatrics (0 to 5 Years) and At-Risk Patients (6 to 64 Years) (1 - PCV)] Future Scheduled Test 2022-06-26 Hepatitis C screening [facility] 18:09:46 (procedure) [code = [id number]] Future Scheduled Test 2022-06-26 COVID-19 VACCINE ([address] [place] [address] 18:09:46 Booster for Pfizer series) [code = COVID-19 VACCINE (3 - Booster for Pfizer series)] Future Scheduled Test 2022-06-26 INFLUENZA VACCINE [facility] 18:09:46 [code = INFLUENZA VACCINE] Future Scheduled Test 2022-06-26 Pneumococcal Vaccine: [facility] 18:09:46 Pediatrics (0 to 5 Years) and At-Risk Patients (6 to 64 Years) (1 - PCV) [code = Pneumococcal Vaccine: Pediatrics (0 to 5 Years) and At-Risk Patients (6 to 64 Years) (1 - PCV)] Future Scheduled Test 2022-06-26 Hepatitis C screening [facility] 18:09:46 (procedure) [code = [id number]] Future Scheduled Test 2022-06-26 COVID-19 VACCINE (75 [place] [address] 18:09:46 Booster for Pfizer series) [code = COVID-19 VACCINE (3 - Booster for Pfizer series)] Future Scheduled Test 2022-06-26 INFLUENZA VACCINE [facility] 18:09:46 [code = INFLUENZA VACCINE] Future Scheduled Test 2022-05-20 Pneumococcal Vaccine: [facility] 09:23:23 Pediatrics (0 to 5 Years) and At-Risk Patients (6 to 64 Years) (1 - PCV) [code = Pneumococcal Vaccine: Pediatrics (0 to 5 Years) and At-Risk Patients (6 to 64 Years) (1 - PCV)] Future Scheduled Test 2022-05-20 Hepatitis C screening [facility] 09:23:23 (procedure) [code = [id number]] Future Scheduled Test 2022-05-20 COVID-19 VACCINE ([address] [place] [address] 09:23:23 Booster for Pfizer series) [code = COVID-19 VACCINE (3 - Booster for Pfizer series)] Future Scheduled Test 2022-05-20 INFLUENZA VACCINE [facility] 09:23:23 [code = INFLUENZA VACCINE] Future Scheduled Test 2022-05-20 Pneumococcal Vaccine: [facility] 09:23:23 Pediatrics (0 to 5 Years) and At-Risk Patients (6 to 64 Years) (1 - PCV) [code = Pneumococcal Vaccine: Pediatrics (0 to 5 Years) and At-Risk Patients (6 to 64 Years) (1 - PCV)] Future Scheduled Test 2022-05-20 Hepatitis C screening [facility] 09:23:23 (procedure) [code = [id number]] Future Scheduled Test 2022-05-20 COVID-19 VACCINE ([address] [place] [address] 09:23:23 Booster for Pfizer series) [code = COVID-19 VACCINE (3 - Booster for Pfizer series)] Future Scheduled Test 2022-05-20 INFLUENZA VACCINE [facility] 09:23:23 [code = INFLUENZA VACCINE] Future Scheduled Test 2022-05-20 Pneumococcal Vaccine: [facility] 09:23:23 Pediatrics (0 to 5 Years) and At-Risk Patients (6 to 64 Years) (1 - PCV) [code = Pneumococcal Vaccine: Pediatrics (0 to 5 Years) and At-Risk Patients (6 to 64 Years) (1 - PCV)] Future Scheduled Test 2022-05-20 Hepatitis C screening [facility] 09:23:23 (procedure) [code = [id number]] Future Scheduled Test 2022-05-20 COVID-19 VACCINE ([address] [place] [address] 09:23:23 Booster for Pfizer series) [code = COVID-19 VACCINE (3 - Booster for Pfizer series)] Future Scheduled Test 2022-05-20 INFLUENZA VACCINE [facility] 09:23:23 [code = INFLUENZA VACCINE] Future Scheduled Test 2022-05-20 Pneumococcal Vaccine: [facility] 09:23:23 Pediatrics (0 to 5 Years) and At-Risk Patients (6 to 64 Years) (1 - PCV) [code = Pneumococcal Vaccine: Pediatrics (0 to 5 Years) and At-Risk Patients (6 to 64 Years) (1 - PCV)] Future Scheduled Test 2022-05-20 Hepatitis C screening [facility] 09:23:23 (procedure) [code = [id number]] Future Scheduled Test 2022-05-20 COVID-19 VACCINE ([address] [place] [address] 09:23:23 Booster for Pfizer series) [code = COVID-19 VACCINE (3 - Booster for Pfizer series)] Future Scheduled Test 2022-05-20 INFLUENZA VACCINE [facility] 09:23:23 [code = INFLUENZA VACCINE] Future Scheduled Test 2022-05-20 Pneumococcal Vaccine: [facility] 09:23:23 Pediatrics (0 to 5 Years) and At-Risk Patients (6 to 64 Years) (1 - PCV) [code = Pneumococcal Vaccine: Pediatrics (0 to 5 Years) and At-Risk Patients (6 to 64 Years) (1 - PCV)] Future Scheduled Test 2022-05-20 Hepatitis C screening [facility] 09:23:23 (procedure) [code = [id number]] Future Scheduled Test 2022-05-20 COVID-19 VACCINE ([address] [place] [address] 09:23:23 Booster for Pfizer series) [code = COVID-19 VACCINE (3 - Booster for Pfizer series)] Future Scheduled Test 2022-05-20 INFLUENZA VACCINE [facility] 09:23:23 [code = INFLUENZA VACCINE] Future Scheduled Test 2022-05-20 Pneumococcal Vaccine: [facility] 09:23:23 Pediatrics (0 to 5 Years) and At-Risk Patients (6 to 64 Years) (1 - PCV) [code = Pneumococcal Vaccine: Pediatrics (0 to 5 Years) and At-Risk Patients (6 to 64 Years) (1 - PCV)] Future Scheduled Test 2022-05-20 Hepatitis C screening [facility] 09:23:23 (procedure) [code = [id number]] Future Scheduled Test 2022-05-20 COVID-19 VACCINE ([address] [place] [address] 09:23:23 Booster for Pfizer series) [code = COVID-19 VACCINE (3 - Booster for Pfizer series)] Future Scheduled Test 2022-05-20 INFLUENZA VACCINE [facility] 09:23:23 [code = INFLUENZA VACCINE] Future Scheduled Test 2022-05-11 Pneumococcal Vaccine: [facility] 07:01:06 Pediatrics (0 to 5 Years) and At-Risk Patients (6 to 64 Years) (1 - PCV) [code = Pneumococcal Vaccine: Pediatrics (0 to 5 Years) and At-Risk Patients (6 to 64 Years) (1 - PCV)] Future Scheduled Test 2022-05-11 Hepatitis C screening [facility] 07:01:06 (procedure) [code = [id number]] Future Scheduled Test 2022-05-11 COVID-19 VACCINE ([address] [place] [address] 07:01:06 Booster for Pfizer series) [code = COVID-19 VACCINE (3 - Booster for Pfizer series)] Future Scheduled Test 2022-05-11 INFLUENZA VACCINE [facility] 07:01:06 [code = INFLUENZA VACCINE] Future Scheduled Test 2022-05-11 Pneumococcal Vaccine: [facility] 07:01:06 Pediatrics (0 to 5 Years) and At-Risk Patients (6 to 64 Years) (1 - PCV) [code = Pneumococcal Vaccine: Pediatrics (0 to 5 Years) and At-Risk Patients (6 to 64 Years) (1 - PCV)] Future Scheduled Test 2022-05-11 Hepatitis C screening [facility] 07:01:06 (procedure) [code = [id number]] Future Scheduled Test 2022-05-11 COVID-19 VACCINE ([address] [place] [address] 07:01:06 Booster for Pfizer series) [code = COVID-19 VACCINE (3 - Booster for Pfizer series)] Future Scheduled Test 2022-05-11 INFLUENZA VACCINE [facility] 07:01:06 [code = INFLUENZA VACCINE] Future Scheduled Test 2022-04-23 Pneumococcal Vaccine: [facility] 15:05:55 Pediatrics (0 to 5 Years) and At-Risk Patients (6 to 64 Years) (1 - PCV) [code = Pneumococcal Vaccine: Pediatrics (0 to 5 Years) and At-Risk Patients (6 to 64 Years) (1 - PCV)] Future Scheduled Test 2022-04-23 Hepatitis C screening [facility] 15:05:55 (procedure) [code = 858563077] Future Scheduled Test 2022-04-23 COVID-19 VACCINE ([address] [place] [address] 15:05:55 Booster for Pfizer series) [code = COVID-19 VACCINE (3 - Booster for Pfizer series)] Future Scheduled Test 2022-04-23 INFLUENZA VACCINE [facility] 15:05:55 [code = INFLUENZA VACCINE] Future Scheduled Test 2022-03-19 Pneumococcal Vaccine: [facility] 14:05:17 Pediatrics (0 to 5 Years) and At-Risk Patients (6 to 64 Years) (1 - PCV) [code = Pneumococcal Vaccine: Pediatrics (0 to 5 Years) and At-Risk Patients (6 to 64 Years) (1 - PCV)] Future Scheduled Test 2022-03-19 Hepatitis C screening [facility] 14:05:17 (procedure) [code = [id number]] Future Scheduled Test 2022-03-19 COVID-19 VACCINE ([address] [place] [address] 14:05:17 Booster for Pfizer series) [code = COVID-19 VACCINE (3 - Booster for Pfizer series)] Future Scheduled Test 2022-03-19 INFLUENZA VACCINE [facility] 14:05:17 [code = INFLUENZA VACCINE] Future Scheduled Test 2022-03-19 Pneumococcal Vaccine: [facility] 14:05:17 Pediatrics (0 to 5 Years) and At-Risk Patients (6 to 64 Years) (1 - PCV) [code = Pneumococcal Vaccine: Pediatrics (0 to 5 Years) and At-Risk Patients (6 to 64 Years) (1 - PCV)] Future Scheduled Test 2022-03-19 Hepatitis C screening [facility] 14:05:17 (procedure) [code = [id number]] Future Scheduled Test 2022-03-19 COVID-19 VACCINE ([address] [place] [address] 14:05:17 Booster for Pfizer series) [code = COVID-19 VACCINE (3 - Booster for Pfizer series)] Future Scheduled Test 2022-03-19 INFLUENZA VACCINE [facility] 14:05:17 [code = INFLUENZA VACCINE] Future Scheduled Test 2022-03-06 Pneumococcal Vaccine: [facility] 19:05:17 Pediatrics (0 to 5 Years) and At-Risk Patients (6 to 64 Years) (1 - PCV) [code = Pneumococcal Vaccine: Pediatrics (0 to 5 Years) and At-Risk Patients (6 to 64 Years) (1 - PCV)] Future Scheduled Test 2022-03-06 Hepatitis C screening [facility] 19:05:17 (procedure) [code = [id number]] Future Scheduled Test 2022-03-06 COVID-19 VACCINE ([address] [place] [address] 19:05:17 Booster for Pfizer series) [code = COVID-19 VACCINE (3 - Booster for Pfizer series)] Future Scheduled Test 2022-03-06 INFLUENZA VACCINE [facility] 19:05:17 [code = INFLUENZA VACCINE] Future Scheduled Test 2022-03-06 Pneumococcal Vaccine: [facility] 19:05:17 Pediatrics (0 to 5 Years) and At-Risk Patients (6 to 64 Years) (1 - PCV) [code = Pneumococcal Vaccine: Pediatrics (0 to 5 Years) and At-Risk Patients (6 to 64 Years) (1 - PCV)] Future Scheduled Test 2022-03-06 Hepatitis C screening [facility] 19:05:17 (procedure) [code = 054277539] Future Scheduled Test 2022-03-06 COVID-19 VACCINE ([address] [place] [address] 19:05:17 Booster for Pfizer series) [code = COVID-19 VACCINE (3 - Booster for Pfizer series)] Future Scheduled Test 2022-03-06 INFLUENZA VACCINE [facility] 19:05:17 [code = INFLUENZA VACCINE] Future Scheduled Test 2022-03-06 Pneumococcal Vaccine: [facility] 19:05:17 Pediatrics (0 to 5 Years) and At-Risk Patients (6 to 64 Years) (1 - PCV) [code = Pneumococcal Vaccine: Pediatrics (0 to 5 Years) and At-Risk Patients (6 to 64 Years) (1 - PCV)] Future Scheduled Test 2022-03-06 Hepatitis C screening [facility] 19:05:17 (procedure) [code = 724621564] Future Scheduled Test 2022-03-06 COVID-19 VACCINE ([address] [place] [address] 19:05:17 Booster for Pfizer series) [code = COVID-19 VACCINE (3 - Booster for Pfizer series)] Future Scheduled Test 2022-03-06 INFLUENZA VACCINE [facility] 19:05:17 [code = INFLUENZA VACCINE] Future Scheduled Test 2022-03-06 Pneumococcal Vaccine: [facility] 19:05:17 Pediatrics (0 to 5 Years) and At-Risk Patients (6 to 64 Years) (1 - PCV) [code = Pneumococcal Vaccine: Pediatrics (0 to 5 Years) and At-Risk Patients (6 to 64 Years) (1 - PCV)] Future Scheduled Test 2022-03-06 Hepatitis C screening [facility] 19:05:17 (procedure) [code = 784839905] Future Scheduled Test 2022-03-06 COVID-19 VACCINE (3 - [facility] 19:05:17 Booster for Pfizer series) [code = COVID-19 VACCINE (3 - Booster for Pfizer series)] Future Scheduled Test 2022-03-06 INFLUENZA VACCINE [facility] 19:05:17 [code = INFLUENZA VACCINE] Future Appointment 2023-11-15 Matty Carter [facility] 00:00:00 Janet Urrutia , [facility] [id number] Instructions Hand Medic al Group Encounters Start End Encounter Admission Attending Care Care Encounter Source Date/Time Date/Time Type Type Clinicians Facility Department ID 2023-05-20 Inpatient GINNY GROSS [id number] [place] 15:00:44 [id number] [place] 2023-03-10 Inpatient GINNY GROSS [id number] [place] 23:11:08 [id number] [place] 2022-08-26 Outpatient MAYDA Diaz [facility] [id number] [place] 10:40:02 Ronnell 24725 [facility] 2022-08-09 Inpatient GINNY GROSS [id number] [place] 16:07:58 [id number] [place] 2022-06-18 Inpatient YASMEEN KHANNA [facility] [id number] [place] 08:00:00 [id number] [facility] 2022-06-11 Inpatient YASMEEN KHANNA [facility] [id number] [place] 08:00:00 [id number] [facility] 2022-06-08 Inpatient GINNY GROSS [id number] [place] 11:16:57 [id number] [place] 2022-05-31 Inpatient TEXANA TEXANA [id number] [place] 12:03:56 [id number] [place] 2022-05-[address] [facility] [id number] [facility] 09:43:04 Ronnell [id number] [facility] 2022-05-03 Inpatient YASMEEN ROMERO [facility] [id number] [place] 09:00:00 MAYNOR [id number] perry paniagua [facility] 2022-03-23 Inpatient TEXANA TEXANA [id number] [place] 11:21:45 [id number] [place] 2023-05-20 2023-05-20 Telephone Misael, 1.2.840.1 [id number] Methodi 00:00:00 00:00:[address] 3.430.2.7 Hospit a .3.037706 l .8 2023-05-19 2023-05-19 [facility] Nick, 1.2.840.1 [id number] [facility]i 11:53:47 23:59:00 Encounter Maynor Sánchez [address]409.1.[address] 3.430.2.7 Hospit a .3.542531 l .8 2023-05-19 2023-05-19 Hospital Asked, No Pcp 1.2.840.1 [id number] [facility]i 11:53:35 23:59:00 Encounter Maynor Romero 02498.1.[address] 3.430.2.7 Hospit a .3.026767 l .8 2023-05-19 2023-05-19 Outpatient ASKED, NO [facility] [id number] [place] 00:00:00 00:00:[address] 2023-05-19 2023-05-19 Outpatient NICK [facility] [id number] [place] 00:00:00 00:00:00 MAYNOR [address] 2023-05-17 2023-05-17 Ronnell G [place] - [id number] [place] 00:00:00 00:00:00 Aracelis Klein MD: [address] [place]/F [address] tono , Ph. Practice 2023-05-16 2023-05-16 [facility] [id number] [place] 00:00:00 00:00:00 1106 [facility] 2023-05-16 2023-05-16 [facility] [id number] [place] 00:00:00 00:00:00 1107 [facility] 2023-05-12 2023-05-12 [facility], 1.2.840.1 [id number] Methodi 11:10:16 23:59:00 Encounter Maynor Sánchez 09840.1.[address] 3.430.2.7 Hospit a .3.588612 l .8 2023-05-12 2023-05-12 [facility] Dejah, 1.2.840.1 [id number] 2100 [id number] [facility] 00:00:00 00:00:00 Only Rich 29002.1.[address] 3.430.2.7 Hospit a .3.287881 l .8 2023-05-12 2023-05-12 Outpatient [facility] [id number] [place] 00:00:00 00:00:00 MAYNOR [address] 2023-04-15 2023-04-15 Office Dejah, 1.2.840.1 [id number] 2100 [id number] [facility]i 10:00:00 11:02:26 Visit Rich 50271.1.[address] 3.430.2.7 Hospit a .3.304476 l .8 2023-04-15 2023-04-15 Outpatient [facility] [id number] [place] 00:00:00 00:00:[address] 2023-04-15 2023-04-15 Outpatient [facility] [id number] [place] 00:00:00 00:00:[address] 2022-12-21 2023-01-07 Outpatient HELEN CODY [facility] [id number] [place] 15:14:00 00:01:00 RICH [id number] [facility] 2022-12-03 2022-12-03 Inpatient YASMEEN POND, [facility] [id number] [place] 14:00:00 08:18:00 RICH -[id number] [facility] 2022-11-25 2022-11-25 Outpatient Camrynkins_M MMG MMG [id number] [place] 00:00:00 00:00:00 0518 [facility] 2022-11-25 2022-11-25 Outpatient Hawkins_M MMG MMG [id number] [place] 00:00:00 00:00:00 1030 [facility] 2022-11-25 2022-11-25 Susan MMG [place] - [id number] M [place] 00:00:00 00:00:00 Alma Martinez Medical Medical PLANT BREEDER SCIENTIST: [address] [facility] [place] [address], [place] [address] , Ph. 2022-11-19 2022-11-19 Outpatient ZAFAR [place], [facility] [id number] [place] 08:55:00 08:55:00 Ronnell -[id number] [facility] 2022-11-17 2022-11-17 Ronnell MMG [place] - [id number] [place] 00:00:00 00:00:00 Micky Lozano Medical Medical MD: [address] [facility] [place] [place] [address], [place] [address] , Ph. 2022-10-19 2022-10-19 Emergency ER JOEL, [facility] [id number] [place] 03:22:00 05:40:00 BRENDA -[id number] [facility] 2022-09-30 2022-09-30 [facility] [id number] Co mmon 00:00:00 00:00:00 VISIT Spirit ESTAB PT - CHI LEVEL 4 [facility] 2022-09-07 2022-09-07 Telephone Duc, 1.2.840.1 [id number] [id number] [facility]i 00:00:00 00:00:[address] 3.430.2.7 Hospit a .3.590829 l .8 2022-09-07 2022-09-07 Telephone Duc, 1.2.840.1 [id number] 2099 [id number] [facility]i 00:00:00 00:00:[address] 3.430.2.7 Hospit a .3.039181 l .8 2022-08-26 2022-08-26 (TEL) STLMLC STLMLC [id number] Co mmon 00:00:00 00:00:00 [facility] 2022-07-26 2022-08-06 Office Maynor Romero 1.2.840.1 [id number] Methodi 10:00:00 16:53:40 Visit Rich [place] 01881.1.[address] 3.430.2.7 Hospit a .3.765984 l .8 2022-07-26 2022-08-06 Office Maynor Romero 1.2.840.1 [id number] [id number] Methodi 10:00:00 16:53:40 Visit Rich [place] 16861.1.[address] 3.430.2.7 Hospit a .3.891753 l .8 2022-07-29 2022-07-29 Outpatient YASMEEN KHANNA [facility] [id number] [place] 09:54:00 09:54:00 NAHUN [id number] [facility] 2022-07-26 2022-07-26 Travel 1.2.840.1 1.2.193.974 [id number] [facility]i 00:00:00 00:00:[address] 3.430.2.7 0.2.7.3.698 Ho spita .3.526959 084.8 l .8 2022-07-26 2022-07-26 Travel 1.2.840.1 1.2.971.901 [id number] [facility]i 00:00:00 00:00:[address] 3.430.2.7 0.2.7.3.698 Ho spita .3.248574 084.8 l .8 2022-06-14 2022-07-10 Outpatient YASMEEN ROMERO, [facility] [id number] [place] 07:00:00 00:01:00 MAYNOR -[id number] [facility] 2022-07-05 2022-07-05 Emergency ER Barron, [facility] [id number] [place] 23:45:00 23:58:00 Neymar -[id number] [facility] 2022-06-25 2022-06-25 Outpatient YASMEEN Diaz, [facility] [id number] [place] 10:55:00 10:55:00 Ronnell -[id number] [facility] 2022-06-25 2022-06-25 Outpatient Zuniga_F [facility] [id number] [place] 00:00:00 00:00:00 1216 da Medical [facility] 2022-06-25 2022-06-25 [facility] [id number] [place] 00:00:00 00:00:00 0509 da Medical [facility] 2022-06-25 2022-06-25 Outpatient [facility] [id number] [place] 00:00:00 00:00:00 0510 Medical Group 2022-06-25 2022-06-25 Outpatient [facility] [id number] [place] 00:00:00 00:00:00 0513 [facility] 2022-06-25 2022-06-25 Radha [facility] [place] - [id number] [place] 00:00:00 00:00:00 Discovery [place] da HATCH TENDER-C: 600 [facility] [address], [facility], [facility] [address] , Ph. 2022-06-24 2022-06-24 Orders Mariferi, 1.2.840.1 [id number] 2100 [id number] Methodi 00:00:00 00:00:00 Only Rich 51303.1.[address] 3.430.2.7 Hospit a .3.687924 l .8 2022-06-24 2022-06-24 Orders Dejah, 1.2.840.1 [id number] 2099 [id number] Methodi 00:00:00 00:00:00 Only Rich 63932.1.[address] 3.430.2.7 Hospit a .3.936509 l .8 2022-06-21 2022-06-21 Outpatient [place]_F [facility] [id number] [place] 00:00:00 00:00:00 1212 [facility] 2022-06-21 2022-06-21 [facility] [place] - [id number] [place] 00:00:00 00:00:00 Micky Lozano, Medical Medical MD: [address] [place] [address] [address], [place] [address] , Ph. 2022-06-09 2022-06-16 Inpatient ER Orlando [facility] [id number] [place] 08:05:00 15:40:00 Ronnell -[id number] [facility] 2022-06-02 2022-06-09 Outpatient YASMEEN ROMERO [facility] [id number] [place] 11:00:00 00:01:00 MAYNOR [id number] [facility] 2022-06-07 2022-06-07 Inpatient ER ORLANDO [facility] MED [id number] [place] 17:16:00 14:35:00 RONNELL [id number] [facility] 2022-06-05 2022-06-05 Emergency ER GUME [facility] [id number] [place] 15:31:00 15:45:00 JASON -[id number] [facility] 2022-05-26 2022-05-26 Outpatient YASMEEN ROMERO [facility] [id number] [place] 11:00:00 11:00:00 MAYNOR -[id number] [facility] 2022-05-24 2022-05-24 Outpatient YASMEEN ROMERO, [facility] [id number] [place] 11:00:00 11:00:00 MAYNOR -[id number] [facility] 2022-05-21 2022-05-21 Outpatient YASMEEN ROMERO, [facility] [id number] [place] 11:00:00 11:00:00 MAYNOR -[id number] [facility] 2022-05-20 2022-05-20 Outpatient YASMEEN KHANNA, [facility] [id number] [place] 08:01:00 08:01:00 NAHUN [id number] [facility] 2022-05-19 2022-05-19 [facility] [id number] Co mmon 00:00:00 00:00:[address] [facility] PT LEVEL 3 - [facility] 2022-05-19 2022-05-19 Orders Dejah, 1.2.840.1 [id number] 2100 [id number] Methodi 00:00:00 00:00:00 Only Rich 61448.1.[address] 3.430.2.7 Hospit a .3.701936 l .8 2022-05-18 2022-05-18 Emergency ER JOEL, [facility] D000 [id number] [place] 19:04:00 21:55:00 BRENDA -[id number] [facility] 2022-04-30 2022-04-30 Emergency ER LUDMILARImmanuel, [facility] [id number] [place] 14:49:00 15:34:00 JASON -[id number] [facility] 2022-04-25 2022-04-25 Emergency ER Barron, [facility] [id number] [place] 14:10:00 14:43:00 Neymar -[id number] [facility] 2022-04-21 2022-04-21 Emergency ER ANAYA, [facility] [id number] [place] 08:47:00 10:02:00 SHI -[id number] [facility] 2022-04-19 2022-04-19 Office Nick, 1.2.840.1 [id number] [facility] 10:20:00 11:30:20 Visit Maynor Sánchez 34245.1.1 [address] 3.430.2.7 Hospit a .3.863044 l .8 2022-04-19 2022-04-19 Travel 1.2.840.1 1.2.738.950 [id number] [facility]i 00:00:00 00:00:[address] 3.430.2.7 0.2.7.3.698 Ho spita .3.866288 084.8 l .8 2022-04-16 2022-04-16 Emergency ER Beatrice, [facility] [id number] [place] 08:42:00 11:50:00 Neymar -[id number] [facility] 2022-04-14 2022-04-14 Emergency ER ANAYA, [facility] [id number] [place] 07:08:00 08:22:00 SHI -[id number] [facility] 2022-04-05 2022-04-05 Emergency ER Melissa, [facility] [id number] [place] 12:23:00 14:08:00 Alexa -[id number] [facility] 2022-04-01 2022-04-01 Outpatient Zuniga_F [facility] [id number] [place] 00:00:00 00:00:00 921 Medical Group 2022-04-01 2022-04-01 Orders Dejah, 1.2.840.1 [id number] [id number] Methodi 00:00:00 00:00:00 Only Rich 51038.1.[address] 3.430.2.7 Hospit a .3.823792 l .8 2022-03-31 2022-03-31 Emergency ER ANAYA, [facility] [id number] [place] 13:34:00 16:08:00 SHI -[id number] [facility] 2022-03-21 2022-03-21 Emergency ER GUME, [facility] [id number] [place] 09:47:00 14:33:00 JASON -[id number] [facility] 2022-03-19 2022-03-19 Office Dejah, 1.2.840.1 [id number] Methodi 14:20:00 14:33:59 Visit Rich 18775.1.[address] 3.430.2.7 Hospit a .3.924319 l .8 2022-03-19 2022-03-19 Travel 1.2.840.1 1.2.325.038 [id number] Methodi 00:00:00 00:00:[address] 3.430.2.7 0.2.7.3.698 Ho spita .3.567016 084.8 l .8 2022-03-11 2022-03-11 Emergency ER EUGENIOUORE, [facility] [id number] [place] 09:45:00 13:28:00 JULIUS -[id number] [facility] 2022-03-09 2022-03-09 Outpatient Duarte_Sundar [facility] [id number] -[id number] [place] 00:00:00 00:00:00 0830 Medical Group 2022-03-09 2022-03-09 Kia [facility] [place] - [id number] M [place] 00:00:00 00:00:00 Discovery Calvin da PA-C: [facility] - [address], [facility] [address] , Ph. 2022-03-07 2022-03-07 Emergency ER JACLYN, [facility] [id number] [place] 12:01:00 13:53:00 SHI -[id number] [facility] 2022-03-03 2022-03-03 Telephone Apolinar, 1.2.840.1 [id number] [id number] Methodi 00:00:00 00:00:[address] 3.430.2.7 Hospit a .3.817755 l .8 2022-03-02 2022-03-02 [facility], 1.2.840.1 [id number] 24583 Methodi 05:56:00 11:56:00 Encounter Maynor Sánchez [address]7212.1.[address] 3.430.2.7 Hospit a .3.013514 l .8 2022-03-02 2022-03-02 Anesthesia Eloina Alfreda A. 1.2.840.1 10 [id number] Methodi 07:29:00 09:55:00 Event Emerson Adaire 60513.1.[address] 3.430.2.7 Hospit a .3.698397 l .8 2022-03-02 2022-03-02 [facility], 1.2.840.1 [id number] 9256 Methodi 07:30:00 09:50:00 Maynor Sánchez 82412.1.1 735 s t 3.430.2.7 Hospit a .3.240460 l .8 2022-03-02 2022-03-02 Telephone Dejah, 1.2.840.1 [id number] Methodi 00:00:00 00:00:[address] 3.430.2.7 Hospit a .3.542333 l .8 2022-03-01 2022-03-01 [facility] 1.2.840.1 [id number] 48312 Methodi 12:18:26 23:59:00 Encounter Maynor Sánchez 07201.1.[address] 3.430.2.7 Hospit a .3.524920 l .8 2022-03-01 2022-03-01 Pre-Admiss [facility] 1.2.840.1 [id number] 989 [id number] Methodi 09:30:00 10:30:00 ion Maynor Sánchez 36672.1.1 034 s t Testing 3.430.2.7 Hospit a .3.120854 l .8 2022-03-01 2022-03-01 Telephone Bedolla, 1.2.840.1 [id number] Methodi 00:00:00 00:00:[address] 3.430.2.7 Hospit a .3.205880 l .8 2022-03-01 2022-03-01 Travel 1.2.840.1 1.2.121.888 7330 [id number] Methodi 00:00:00 00:00:[address] 3.430.2.7 0.2.7.3.698 Ho spita .3.947951 084.8 l .8 2022-02-26 2022-02-26 Telephone Nick, 1.2.840.1 [id number] Methodi 00:00:00 00:00:00 Maynor Sánchez 75092.1.1 279 s t 3.430.2.7 Hospit a .3.741557 l .8 2022-02-26 2022-02-26 Travel 1.2.840.1 1.2.284.694 1171 208669 Methodi 00:00:00 00:00:[address] 3.430.2.7 0.2.7.3.698 Ho spita .3.852590 084.8 l .8 2022-02-24 2022-02-25 Emergency [facility] 1.2.840.1 1041 [id number] Methodi 15:25:00 19:45:00 Basilio Diallo 27630.1.[address] 3.430.2.7 Hospit a .3.867667 l .8 2022-02-25 2022-02-25 Transcribe Nick, 1.2.840.1 [id number] [id number] Methodi 00:00:00 00:00:00 Orders Maynor Sánchez 52635.1.1 241 s t 3.430.2.7 Hospit a .3.823338 l .8 2022-02-25 2022-02-25 Orders Djeah, 1.2.840.1 [id number] 2099 [id number] Methodi 00:00:00 00:00:00 Only Rich 10529.1.[address] 3.430.2.7 Hospit a .3.962466 l .8 2022-02-24 2022-02-24 [facility], 1.2.840.1 [id number] Methodi 18:39:58 23:59:00 Encounter Maynor Sánchez [address]215.1.[address] 3.430.2.7 Hospit a .3.003954 l .8 2022-02-24 2022-02-24 [facility], 1.2.840.1 [id number] Methodi 18:39:26 23:59:00 Encounter Maynor Sánchez 46961.1.[address] 3.430.2.7 Hospit a .3.650543 l .8 2022-02-24 2022-02-24 [facility], 1.2.840.1 [id number] 1088 Methodi 00:00:00 00:00:00 Only Maynor Sánchez 85436.1.1 790 s t 3.430.2.7 Hospit a .3.491973 l .8 2022-02-24 2022-02-24 Travel 1.2.840.1 1.2.389.873 4174 057441 Methodi 00:00:00 00:00:[address] 3.430.2.7 0.2.7.3.698 Ho spita .3.047168 084.8 l .8 2022-02-12 2022-02-12 Emergency ER GUME [facility] [id number] [place] 08:42:00 13:17:00 JASON [id number] [facility] 2022-01-26 2022-01-26 Outpatient SANDIE_HERNÁN ANTONIO 90 [place] 12:18:00 12:18:00 _DOREEN 0719 [facility] Outre h Program 2022-01-17 2022-01-17 Emergency ER Melissa, [facility] [id number] [place] 18:06:00 21:18:00 Alexa -[id number] [facility] 2021-12-18 2021-12-18 Office Nick, 1.2.840.1 [id number] Methodi 10:20:00 11:32:26 Visit Maynor Sánchez 30195.1.1 071 s t 3.430.2.7 Hospit a .3.809838 l .8 2021-12-18 2021-12-18 Outpatient NICK [facility] [id number] [place] 00:00:00 00:00:00 MAYNOR [address] 2021-12-18 2021-12-18 Travel 1.2.840.1 1.2.507.731 9622 120007 Methodi 00:00:00 00:00:[address] 3.430.2.7 0.2.7.3.698 Ho spita .3.749168 084.8 l .8 2021-12-18 2021-12-18 Outpatient NICK [facility] [id number] [place] 00:00:00 00:00:00 MAYNOR Armenta [facility] 2021-11-30 2021-11-30 Emergency ER JACKY [facility] [id number] [place] 01:26:00 04:02:00 HARRISON [id number] [facility] 2021-11-06 2021-11-06 [facility] [id number] [place] 12:33:00 12:33:00 050 [facility] 2021-11-06 2021-11-06 Outpatient Hawkins[facility] [id number] [place] 00:00:00 00:00:00 0429 [facility] 2021-11-06 2021-11-06 Susan [facility] [place] - [id number] [place] 00:00:00 00:00:00 Aracelis Hunter Medical PLANT BREEDER SCIENTIST: [address] [facility] [address], [place] [address] , Ph. 2021-11-05 2021-11-05 [facility] [id number] [place] 04:51:00 04:51:00 0428 [facility] 2021-09-14 2021-09-14 Outpatient [facility] [id number] [place] 12:39:00 12:39:00 0307 [facility] 2021-09-14 2021-09-14 Kia [facility] [place] - [id number] [place] 00:00:00 00:00:00 Discovery Calvin da PA-C: [address] [facility] [address] [address] , Ph. 2021-09-14 2021-09-14 Travel 1.2.840.1 1.2.791.023 2849 [id number] Methodi 00:00:00 00:00:[address] 3.430.2.7 0.2.7.3.698 Ho spita .3.475929 084.8 l .8 2021-08-10 2021-08-10 Outpatient Koudela_A MMG [facility] [id number] [place] 11:36:00 11:36:00 0131 Medical Group 2021-08-10 2021-08-10 Outpatient Koudela_A MMG [facility] [id number] [place] 11:36:00 11:36:00 0211 Medical [facility] 2021-08-10 2021-08-10 Outpatient EL CALVIN, [facility] [id number] [place] 11:05:00 11:05:00 KIA -[id number] [facility] 2021-06-24 2021-06-24 Inpatient ER Nawaf, [facility] MED [id number] [place] 00:24:00 13:53:00 Abraham -[id number] [facility] 2021-05-04 2021-05-04 Outpatient Zuniga_F MMG [facility] [id number]- 2020 [place] 10:22:00 10:22:00 1220 Medical Group 2021-04-28 2021-04-29 Emergency ER MARCUS, [facility] [id number] [place] 18:03:00 01:22:00 BARBARA -[id number] [facility] 2021-03-26 2021-03-26 Outpatient Zuniga_F MMG [facility] [id number] 2020 [place] 10:53:00 10:53:00 0916 [facility] 2021-03-26 2021-03-26 Outpatient EL Diaz, [facility] [id number] [place] 08:44:00 08:44:00 Ronnell -[id number] [facility] 2021-03-26 2021-03-26 Ronnell [facility] [place] - [id number] [place] 00:00:00 00:00:00 Aracelis Klein Medical MD: [address] [facility] [address], [place] [address] , Ph. 2021-03-10 2021-03-10 [facility] [id number]- 2020 [place] 04:23:00 04:23:00 0831 [facility] 2021-03-10 2021-03-10 Ronnell [facility] [place] - [id number] [place] 00:00:00 00:00:00 Aracelis Klein Medical MD: [address] [place] [address] [address], [place] [address] , Ph. 2021-02-19 2021-02-19 Emergency ER NILDA, TOKS [facility] [id number] [place] 09:17:00 18:11:00 -[id number] [facility] 2021-02-18 2021-02-18 [place] [id number]- 2020 [place] 10:58:00 10:58:00 0811 Medical Group 2021-02-13 2021-02-13 [place] [id number]- 2020 [place] 11:36:00 11:36:00 0806 [facility] 2021-02-11 2021-02-11 Outpatient Zuniga_S MMG MMG [id number]- 2020 [place] 04:11:00 04:11:00 0804 [facility] 2021-01-18 2021-01-18 Emergency ER CHION, [facility] [id number] [place] 07:23:00 15:33:00 PRISCILA [id number] [facility] 2021-01-02 2021-01-02 [place] [id number]- 2020 [place] 11:03:00 11:03:00 0625 [facility] 2021-01-02 2021-01-02 [place] [id number]- 2020 [place] 11:03:00 11:03:00 0626 Medical Group 2021-01-02 2021-01-02 Radha [facility] [place] - [id number] [place] 00:00:00 00:00:00 Discovery perry Diaz HATCH TENDER-C: [address] [facility] [address] [address] , Ph. 2020-07-15 2020-07-15 Outpatient Zuniga_F MMG [facility] [id number] 2020 [place] 12:50:00 12:50:00 0105 [facility] 2020-07-15 2020-07-15 [place] [id number]- 2020 [place] 12:50:00 12:50:00 0111 [facility] 2020-07-15 2020-07-15 Tyson [facility] [place] - [id number] [place] 00:00:00 00:00:00 Discovery perry Munoz MD: [address] [place] [address] [address], [place] [address] , Ph. [phone] 2020-07-14 2020-07-14 Outpatient Zuniga_F MMG MMG [id number]- 2020 [place] 04:30:00 04:30:00 0104 [facility] 2020-07-14 2020-07-14 Ronnell [facility] [place] - [id number] [place] 00:00:00 00:00:00 Aracelis Klein Medical MD: [address] [facility] [address], [place] [address] , Ph. 2020-07-10 2020-07-10 Outpatient Zuniga_F MMG MMG [id number]- 2019 [place] 10:29:00 10:29:00 1231 Medical Group 2020-07-07 2020-07-08 Emergency ER CHINO, [facility] [id number] [place] 23:32:00 12:45:00 PRISCILA [id number] [facility] 2020-02-26 2020-02-26 Outpatient Zuniga_F MMG MMG [id number]- 2019 [place] 12:39:00 12:39:00 1229 [facility] 2020-02-26 2020-02-26 Outpatient Zuniga_F MMG MMG [id number]- 2019 [place] 12:39:00 12:39:00 1230 [facility] 2020-01-30 2020-01-30 Outpatient Zuniga_F MMG MMG [id number]- 2019 [place] 08:08:00 08:08:00 0722 [facility] 2020-01-30 2020-01-30 Ronnell [facility] [place] - [id number] [place] 00:00:00 00:00:00 Aracelis Klein Medical MD: [address] [facility] [address], [place] [address] , Ph. 2020-01-29 2020-01-29 Outpatient Raju_P MMG MMG [id number] [place] 04:40:00 04:40:00 0721 [facility] 2019-11-06 2019-11-06 Outpatient Raju_P MMG MMG [id number] [place] 03:29:00 03:29:00 0428 [facility] 2019-11-06 2019-11-06 Outpatient Maninderu_P MMG G [id number] [place] 03:29:00 03:29:00 0429 [facility] 2019-03-02 2019-03-02 Outpatient YASMEEN ASCENCIO, [facility] [id number] [place] 11:02:00 11:02:00 BYROLYN -[id number] [facility] 2019-02-13 2019-02-13 Emergency ER CHINO, [facility] [id number] [place] 17:16:00 18:34:00 PRISCILA -[id number] [facility] 2018-02-07 2018-02-07 Outpatient YASMEEN LUU [facility] D00 [id number] [place] 09:47:00 09:47:00 SUNNY Paniagua -[id number] [facility] 2017-10-12 2017-10-12 Emergency ER OWO, TOKS [facility] [id number] [place] 17:50:00 19:49:00 -[id number] [facility] 2017-06-01 2017-06-01 Emergency ER OWO, TOKS [facility] [id number] [place] 04:32:00 06:26:00 -[id number] [facility] 2017-02-24 2017-02-24 Outpatient YASMEEN ASCENCIO, [facility] [id number] [place] 08:41:00 08:41:00 BYROLYN -[id number] [facility] 2017-01-13 2017-01-13 Emergency ER UGORJI, [facility] [id number] [place] 00:20:00 03:56:00 CLEMENT -[id number] [facility] 2016-09-02 2016-09-02 Emergency ER UGORJI, [facility] [id number] [place] 13:20:00 14:30:00 CLEMENT -[id number] [facility] 2016-04-28 2016-04-29 Emergency ER OWO, TOKS [facility] [id number] [place] 22:59:00 01:22:00 -[id number] [facility] 2015-09-28 2015-09-29 Emergency ER SAEMI, [facility] [id number] [place] 21:04:00 08:15:00 NUNO -[id number] [facility] 2015-05-05 2015-05-05 Emergency ER UGORJI, [facility] [id number] [place] 19:34:00 21:26:00 CLEMENT -[id number] [facility] 2014-11-07 2014-11-08 Emergency ER OWO, TOKS [facility] [id number] [place] 23:26:00 04:30:00 -[id number] [facility] 2014-08-01 2014-08-01 Outpatient EL VALLOPPILLI [facility] D00 [id number] [place] 12:03:00 12:03:00 SUNNY [place]aniagua -[id number] [facility] 2011-12-29 2011-12-29 Emergency ER OTINWA, [facility] [id number] [place] 19:51:00 22:10:00 PARKER -[id number] [facility] 2011-11-12 2011-11-12 Outpatient EL VALLOPPILLI [facility] D00 [id number] [place] 07:58:00 07:58:00 CRISTOFER PaniaguaI -[id number] [facility] 2011-10-10 2011-10-11 Emergency ER THAKKAR, [facility] [id number] [place] 22:24:00 01:45:00 WASIM -[id number] [facility] 2011-10-06 2011-10-06 Emergency ER UGORJI, [facility] [id number] [place] 00:27:00 06:30:00 CLEMENT -[id number] [facility] 2011-09-08 2011-09-08 Outpatient EL VALLOPPILLI [facility] D00 [id number] [place] 11:57:00 11:57:00 SUNNY Paniagua -[id number] [facility] 2010-06-16 2010-06-17 Emergency ER IRUKE, [facility] [id number] [place] 18:00:00 04:05:00 ZBIGNIEW -[id number] vasquez [facility] 2010-03-24 2010-03-24 Outpatient YASMEEN LUU [facility] D00 [id number] [place] 14:21:00 14:21:00 SUNNY [place]ani[place] -[id number] [facility] Results Test Description Test Time Test Comments [...] alkaline 60 U/L 40-1 30 phosphatase, total) [facility]22-[facility] 12:31:00 Test Item Value Reference Range Interpretation Comments lipase (test code = lipase) 290 U/L 13-60 H [facility] W Auto Differential panel - [id number] 12:07:00 Test Item Value Reference Range Interpretation [...] NRBC# (test code = NRBC#) 0 K/uL [facility] diff (reflexed)2022-06-16 07:40:00 Test Item Value Reference [...] normal normal platelet morphology) [facility]2022-12-07 07:12:00 Test Item Value Reference Range Interpretation Comments lipase (test code = lipase) 432 U/L 13-60 H [facility] panel - Serum or Plasma [...] U/L 40-130 code = alkaline phosphatase, total) [facility]2022-12-07 07:06:00 Test Item Value Reference Range Interpretation Comments LDH (test code = LDH) 421 U/L 135-225 H [facility]2022-12-07 07:06:00 Test Item Value Reference Range Interpretation Comments LDH (test code = LDH) 421 U/L 135-225 H [facility] Auto Differential panel - [id number] 06:46:00 Test Item Value Reference Range Interpretation [...] morph. normal RBC code = morphology comment) [facility]2022-12-06 11:10:00 Test Item Value Reference Range Interpretation Comments lipase (test code = lipase) 478 U/L 13-60 H [facility] panel - Serum or Plasma [...] U/L 40-130 code = alkaline phosphatase, total) [facility] W Ordered Manual Differential panel - [id number] 10:52:00 Test Item Value Reference Range Interpretation [...] (test normal normal code = platelet morphology) [facility]2022-06-14 05:46:00 Test Item Value [...] normal normal platelet morphology) [facility] panel - Serum or Plasma [...] U/L 40-130 code = alkaline phosphatase, total) [facility]2022-12-05 05:30:00 Test Item Value Reference Range Interpretation Comments lipase (test code = lipase) 273 U/L 13-60 H [facility] W Auto Differential panel - [id number] 05:16:00 Test Item Value Reference Range Interpretation [...] morph. normal RBC code = morphology comment) [facility] diff (reflexed)2022-06-13 11:13:00 Test Item Value [...] (test code = normal normal platelet morphology) [facility] diff (reflexed)2022-06-13 11:13:00 Test Item Value [...] (test code = normal normal platelet morphology) [facility] diff (reflexed)2022-06-13 11:13:00 Test Item Value [...] (test code = normal normal platelet morphology) [facility] diff (reflexed)2022-06-13 11:13:00 Test Item Value [...] (test code = normal normal platelet morphology) [facility] W Auto Differential panel - [id number] 08:26:00 Test Item Value Reference Range Interpretation [...] NRBC# (test code = NRBC#) 0 K/uL [facility] Auto Differential panel - [id number] 08:26:00 Test Item Value Reference Range Interpretation [...] NRBC# (test code = NRBC#) 0 K/uL [facility] 2000 panel - Serum or Plasma [...] U/L 40-130 code = alkaline phosphatase, total) [facility]2022-12-04 08:22:00 Test Item Value Reference Range Interpretation Comments lipase (test code = lipase) 226 U/L 13-60 H [facility] panel - Serum or Plasma [...] U/L 40-130 code = alkaline phosphatase, total) [facility]2022-12-04 08:22:00 Test Item Value Reference Range Interpretation Comments lipase (test code = lipase) 226 U/L 13-60 H [facility] panel - Serum or Plasma [...] U/L 40-130 code = alkaline phosphatase, total) [facility]2022-12-03 04:36:00 Test Item Value Reference Range Interpretation Comments lipase (test code = lipase) 102 U/L 13-60 H [facility]2022-12-03 04:36:00 Test Item Value Reference Range Interpretation Comments lipase (test code = lipase) 102 U/L 13-60 H [facility] panel - Serum or Plasma [...] U/L 40-130 code = alkaline phosphatase, total) [facility]2022-12-03 04:36:00 Test Item Value Reference Range Interpretation Comments lipase (test code = lipase) 102 U/L 13-60 H [facility]2022-12-03 04:36:00 Test Item Value Reference Range Interpretation Comments lipase (test code = lipase) 102 U/L 13-60 H [facility] W Auto Differential panel - [id number] 04:18:00 Test Item Value Reference Range Interpretation [...] NRBC# (test code = NRBC#) 0 K/uL [facility] W Auto Differential panel - [id number] 04:18:00 Test Item Value Reference Range Interpretation [...] NRBC# (test code = NRBC#) 0 K/uL [facility]2022-12-02 08:39:00 Test Item Value Reference Range Interpretation Comments LDH (test code = LDH) 457 U/L 135-[facility] 08:39:00 Test Item Value Reference Range Interpretation Comments LDH (test code = LDH) 457 U/L 135-225 [facility] [id number] 08:26:00 Test Item Value Reference Range Interpretation Comments lactic acid (test code = lactic 1.12 mmol/L 0.5-2.2 acid) [facility] [id number] 08:26:00 Test Item Value Reference Range Interpretation Comments lactic acid (test code = lactic 1.12 mmol/L 0.5-2.2 acid) [facility]2022-12-02 07:47:00 Test Item Value Reference Range Interpretation Comments lipase (test code = lipase) 136 U/L 13-60 H [facility]2022-12-02 07:47:00 Test Item Value Reference Range Interpretation Comments lipase (test code = lipase) 136 U/L 13-60 H [facility] panel - Serum or Plasma [...] U/L 40-130 code = alkaline phosphatase, total) [facility] panel - Serum or Plasma [...] U/L 40-130 code = alkaline phosphatase, total) [facility] diff (reflexed)2022-06-11 07:30:00 Test Item Value [...] (test code = normal normal platelet morphology) [facility] diff (reflexed)2022-06-11 07:30:00 Test Item Value [...] (test code = normal normal platelet morphology) [facility] W Auto Differential panel - [id number] 07:23:00 Test Item Value Reference Range Interpretation [...] morph. normal RBC code = morphology comment) [facility] W Auto Differential panel - [id number] 07:23:00 Test Item Value Reference Range Interpretation [...] morph. normal RBC code = morphology comment) [facility] - Arterial [id number] 15:03:00 Test Item Value Reference Range Interpretation [...] (test code = O2 7.9 mmol/L content) [facility] panel - Arterial [id number] 15:03:00 Test Item Value Reference Range Interpretation [...] (test code = O2 7.9 mmol/L content) [facility] [id number] 13:03:00 Test Item Value Reference Range Interpretation Comments blood culture (test code = final report. blood culture) [facility] [id number] 13:03:00 Test Item Value Reference Range Interpretation Comments blood culture (test code = final report. blood culture) [facility] ([facility]lexed)2022-06-10 07:41:00 Test Item Value Reference [...] normal normal platelet morphology) [facility] (reflexed)2022-06-10 07:41:00 Test Item Value Reference [...] normal normal platelet morphology) [facility]2022-12-01 07:33:00 Test Item Value Reference Range Interpretation Comments LDH (test code = LDH) 319 U/L 135-225 [facility] 07:33:00 Test Item Value Reference Range Interpretation Comments LDH (test code = LDH) 319 U/L 135-225 H [facility] panel - Serum or Plasma [...] U/L 40-130 code = alkaline phosphatase, total) [facility]2022-12-01 07:28:00 Test Item Value Reference Range Interpretation Comments lipase (test code = lipase) 297 U/L 13-60 H [facility] panel - Serum or Plasma [...] U/L 40-130 code = alkaline phosphatase, total) [facility]2022-12-01 07:28:00 Test Item Value Reference Range Interpretation Comments lipase (test code = lipase) 297 U/L 13-60 H [facility] [id number] 07:26:00 Test Item Value Reference Range Interpretation Comments lactic acid (test code = lactic 1.18 mmol/L 0.5-2.2 acid) [facility] [id number] 07:26:00 Test Item Value Reference Range Interpretation Comments lactic acid (test code = lactic 1.18 mmol/L 0.5-2.2 acid) [facility] [id number] 06:53:00 Test Item Value Reference Range Interpretation Comments ionized calcium (test code = 4.17 mg/dL 4.34-5.00 L ionized calcium) [facility] W Auto Differential panel - [id number] 06:53:00 Test Item Value Reference Range Interpretation [...] morph. normal RBC code = morphology comment) [facility] [id number] 06:53:00 Test Item Value Reference Range Interpretation Comments ionized calcium (test code = 4.17 mg/dL 4.34-5.00 L ionized calcium) [facility] W Auto Differential panel - [id number] 06:53:00 Test Item Value Reference Range Interpretation [...] morph. normal RBC code = morphology comment) [facility] 06:34:00 Test Item Value Reference Range Interpretation Comments lipase (test code = lipase) 1018 U/L 13-60 H [facility]2022-11-30 06:34:00 Test Item Value Reference Range Interpretation Comments lipase (test code = lipase) 1018 U/L 13-60 H [facility] 06:33:00 Test Item Value Reference Range Interpretation Comments LDH (test code = LDH) 296 U/L 135-225 H [facility] 06:33:00 Test Item Value Reference Range Interpretation Comments LDH (test code = LDH) 296 U/L 135-225 H [facility] metabolic 1999 panel - Serum or Plasma 2022-06-09 06:27:00 [...] U/L 40-130 code = alkaline phosphatase, total) [facility] metabolic 1999 panel - Serum or Plasma 2022-06-09 06:27:00 [...] U/L 40-130 code = alkaline phosphatase, total) [facility] [id number] 06:26:00 Test Item Value Reference Range Interpretation Comments lactic acid (test code = lactic 1.00 mmol/L 0.5-2.2 acid) [facility] [id number] 06:26:00 Test Item Value Reference Range Interpretation Comments lactic acid (test code = lactic 1.00 mmol/L 0.5-2.2 acid) [facility] W Auto Differential panel - [id number] 06:16:00 Test Item Value Reference Range Interpretation [...] NRBC# (test code = NRBC#) 0 K/uL [facility] W Auto Differential panel - [id number] 06:16:00 Test Item Value Reference Range Interpretation [...] NRBC# (test code = NRBC#) 0 K/uL [facility] [id number] 05:06:00 Test Item Value Reference Range Interpretation [...] (test code = 6.828 cholesterol risk ratio) [facility] [id number] 05:06:00 Test Item Value Reference Range Interpretation [...] (test code = 6.828 cholesterol risk ratio) [facility]2022-11-29 04:59:00 Test Item Value Reference Range Interpretation Comments lipase (test code = lipase) 1955 U/L 13-60 H [facility]2022-11-29 04:59:00 Test Item Value Reference Range Interpretation Comments lipase (test code = lipase) 1955 U/L 13-60 H [facility]2022-11-29 04:59:00 Test Item Value Reference Range Interpretation Comments lipase (test code = lipase) 1955 U/L 13-60 H [facility]2022-11-29 04:59:00 Test Item Value Reference Range Interpretation Comments lipase (test code = lipase) 1955 U/L 13-60 H [facility] W Auto Differential panel - [id number] 04:07:00 Test Item Value Reference Range Interpretation [...] NRBC# (test code = NRBC#) 0 K/uL [facility] W Auto Differential panel - [id number] 04:07:00 Test Item Value Reference Range Interpretation [...] NRBC# (test code = NRBC#) 0 K/uL [facility] [id number] 18:23:00 Test Item Value Reference Range Interpretation Comments alcohol level (test code = alcohol < 10.0 0.0-10.1 level) [facility] [id number] 18:23:00 Test Item Value Reference Range Interpretation Comments alcohol level (test code = alcohol < 10.0 0.0-10.1 level) [facility]2022-08-23 11:47:00 Test Item Value Reference Range Interpretation Comments POC glucose (test code = 103 mg/dL 65-99 H Ope rator Name: 27748-5) Esmail Quratula in [facility] ID: [id number] able: RN Notified Lab Interpretation (test Abnormal code = 15968-2) [facility]2022-08-23 11:47:00 Test Item Value Reference Range Interpretation Comments POC glucose (test code = 103 mg/dL 65-99 H Ope rator Name: 96973-0) Esmail Quratula in [facility] ID: [id number] able: RN Notified Lab Interpretation (test Abnormal code = 38533-0) [facility]2022-08-23 11:47:00 Test Item Value Reference Range Interpretation Comments POC glucose (test code = 103 mg/dL 65-99 H Ope rator Name: 52823-7) Esmail Quratula in [facility] ID: [id number] able: RN Notified Lab Interpretation (test Abnormal code = 76571-9) [facility]2022-08-23 11:47:00 Test Item Value Reference Range Interpretation Comments POC glucose (test code = 103 mg/dL 65-99 H Ope rator Name: 80307-7) Esmail Quratula in [facility] ID: [id number] able: RN Notified Lab Interpretation (test Abnormal code = 82752-6) [facility]2022-08-23 11:47:00 Test Item Value Reference Range Interpretation Comments POC glucose (test code = 103 mg/dL 65-99 H Ope rator Name: 63369-7) Esmail Quratula in [facility] ID: [id number] able: RN Notified Lab Interpretation (test Abnormal code = 61588-0) [facility]2022-08-23 11:47:00 Test Item Value Reference Range Interpretation Comments POC glucose (test code = 103 mg/dL 65-99 H Ope rator Name: 83820-1) Esmail Quratula in [facility] ID: [id number] able: RN Notified Lab Interpretation (test Abnormal code = 02332-2) [facility]2022-08-23 11:47:00 Test Item Value Reference Range Interpretation Comments POC glucose (test code = 103 mg/dL 65-99 H Ope rator Name: 63413-3) Esmail Quratula in [facility] ID: [id number] able: RN Notified Lab Interpretation (test Abnormal code = 30969-6) [facility]2022-08-23 11:47:00 Test Item Value Reference Range Interpretation Comments POC glucose (test code = 103 mg/dL 65-99 H Ope rator Name: 75507-5) Esmail Quratula in [facility] ID: [id number] able: RN Notified Lab Interpretation (test Abnormal code = 24797-4) [facility]2022-08-23 11:47:00 Test Item Value Reference Range Interpretation Comments POC glucose (test code = 103 mg/dL 65-99 H Ope rator Name: 39708-4) Esmail Quratula in [facility] ID: [id number] able: RN Notified Lab Interpretation (test Abnormal code = 54404-9) [facility]2022-08-23 11:47:00 Test Item Value Reference Range Interpretation Comments POC glucose (test code = 103 mg/dL 65-99 H Ope rator Name: 07998-1) Esmail Quratula in [facility] ID: [id number] able: RN Notified Lab Interpretation (test Abnormal code = 96539-1) [facility]2022-08-23 11:47:00 Test Item Value Reference Range Interpretation Comments POC glucose (test code = 103 mg/dL 65-99 H Ope rator Name: 81781-5) Esmail Quratula in [facility] ID: [id number] able: RN Notified Lab Interpretation (test Abnormal code = 00821-9) [facility]2022-08-23 11:47:00 Test Item Value Reference Range Interpretation Comments POC glucose (test code = 103 mg/dL 65-99 H Ope rator Name: 44694-4) Esmail Quratula in [facility] ID: [id number] able: RN Notified Lab Interpretation (test Abnormal code = 87858-3) [facility]2022-08-23 11:47:00 Test Item Value Reference Range Interpretation Comments POC glucose (test code = 103 mg/dL 65-99 H Ope rator Name: 21258-8) Esmail Quratula in [facility] ID: [id number] able: RN Notified Lab Interpretation (test Abnormal code = 54517-9) [facility]2022-08-23 11:47:00 Test Item Value Reference Range Interpretation Comments POC glucose (test code = 103 mg/dL 65-99 H Ope rator Name: 37737-1) Esmail Quratula in [facility] ID: [id number] able: RN Notified Lab Interpretation (test Abnormal code = 64081-2) [facility]2022-08-23 11:47:00 Test Item Value Reference Range Interpretation Comments POC glucose (test code = 103 mg/dL 65-99 H Ope rator Name: 11420-4) Esmail Quratula in [facility] ID: [id number] able: RN Notified Lab Interpretation (test Abnormal code = 10677-7) [facility]2022-08-23 11:47:00 Test Item Value Reference Range Interpretation Comments POC glucose (test code = 103 mg/dL 65-99 H Ope rator Name: 83955-3) Esmail Quratula in [facility] ID: [id number] able: RN Notified Lab Interpretation (test Abnormal code = 74603-5) [facility]2022-08-23 11:47:00 Test Item Value Reference Range Interpretation Comments POC glucose (test code = 103 mg/dL 65-99 H Ope rator Name: 67452-2) Esmail Quratula in [facility] ID: [id number] able: RN Notified Lab Interpretation (test Abnormal code = 81578-2) [facility]2022-08-23 11:47:00 Test Item Value Reference Range Interpretation Comments POC glucose (test code = 103 mg/dL 65-99 H Ope rator Name: 61864-9) Esmail Quratula in [facility] ID: [id number] able: RN Notified Lab Interpretation (test Abnormal code = 21088-5) [facility]2022-08-23 11:47:00 Test Item Value Reference Range Interpretation Comments POC glucose (test code = 103 mg/dL 65-99 H Ope rator Name: 26049-2) Esmail Quratula in [facility] ID: [id number] able: RN Notified Lab Interpretation (test Abnormal code = 17078-7) [facility]2022-08-23 11:47:00 Test Item Value Reference Range Interpretation Comments POC glucose (test code = 103 mg/dL 65-99 H Ope rator Name: 48851-9) Esmail Quratula in [facility] ID: [id number] able: RN Notified Lab Interpretation (test Abnormal code = 33937-4) [facility]2022-08-23 11:47:00 Test Item Value Reference Range Interpretation Comments POC glucose (test code = 103 mg/dL 65-99 H Ope rator Name: 63554-9) Esmail Quratula in [facility] ID: [id number] able: RN Notified Lab Interpretation (test Abnormal code = 81585-2) [facility]2022-08-23 11:47:00 Test Item Value Reference Range Interpretation Comments POC glucose (test code = 103 mg/dL 65-99 H Ope rator Name: 96141-0) Esmail Quratula in [facility] ID: [id number] able: RN Notified Lab Interpretation (test Abnormal code = 65623-9) [facility]2022-08-23 11:47:00 Test Item Value Reference Range Interpretation Comments POC glucose (test code = 103 mg/dL 65-99 H Ope rator Name: 22825-9) Esmail Quratula in [facility] ID: [id number] able: RN Notified Lab Interpretation (test Abnormal code = 44823-0) [facility]2022-08-23 11:47:00 Test Item Value Reference Range Interpretation Comments POC glucose (test code = 103 mg/dL 65-99 H Ope rator Name: 49552-3) Esmail Quratula in [facility] ID: [id number] able: RN Notified Lab Interpretation (test Abnormal code = 49135-2) [facility]2022-08-23 11:47:00 Test Item Value Reference Range Interpretation Comments POC glucose (test code = 103 mg/dL 65-99 H Ope rator Name: 63306-3) Esmail Quratula in [facility] ID: [id number] able: RN Notified Lab Interpretation (test Abnormal code = 19247-9) [facility]2022-08-23 11:47:00 Test Item Value Reference Range Interpretation Comments POC glucose (test code = 103 mg/dL 65-99 H Ope rator Name: 63663-0) Esmail Quratula in [facility] ID: [id number] able: RN Notified Lab Interpretation (test Abnormal code = 84785-7) [facility]2022-08-23 11:47:00 Test Item Value Reference Range Interpretation Comments POC glucose (test code = 103 mg/dL 65-99 H Ope rator Name: 68508-2) Esmail Quratula in [facility] ID: [id number] able: RN Notified Lab Interpretation (test Abnormal code = 05997-5) [place] [id number] 11:47:00 Test Item Value Reference Range Interpretation Comments POC glucose (test code = 103 mg/dL 65-99 H Ope rator Name: 60096-1) Esmail Quratula in [facility] ID: [id number] able: RN Notified Lab Interpretation (test Abnormal code = 31812-4) [facility]2022-08-23 11:47:00 Test Item Value Reference Range Interpretation Comments POC glucose (test code = 103 mg/dL 65-99 H Ope rator Name: 09404-7) Esmail Quratula in [facility] ID: [id number] able: RN Notified Lab Interpretation (test Abnormal code = 44397-0) [facility]2022-08-23 11:47:00 Test Item Value Reference Range Interpretation Comments POC glucose (test code = 103 mg/dL 65-99 H Ope rator Name: 14664-9) Esmail Quratula in [facility] ID: [id number] able: RN Notified Lab Interpretation (test Abnormal code = 14658-6) [facility]2022-08-23 11:47:00 Test Item Value Reference Range Interpretation Comments POC glucose (test code = 103 mg/dL 65-99 H Ope rator Name: 49369-5) Esmail Quratula in [facility] ID: [id number] able: RN Notified Lab Interpretation (test Abnormal code = 90931-1) [facility] Pre/Post [id number] 20:29:23 Test Item Value Reference Range Interpretation Comments Ventricular rate (test code = 253) Atrial rate (test code = 255) NH interval (test code = 266) QRSD interval [...] Emery MD (2064) on 03/01/2022 3:29:18 PM [facility] Pre/Post [id number] 20:29:23 Test Item Value Reference Range Interpretation Comments Ventricular rate (test code = 253) Atrial rate (test code = 255) NH interval (test code = 266) QRSD interval [...] Emery MD (2064) on 03/01/2022 3:29:18 PM [facility] Pre/Post [id number] 20:29:23 Test Item Value Reference Range Interpretation Comments Ventricular rate (test code = 253) Atrial rate (test code = 255) NH interval (test code = 266) QRSD interval [...] Emery MD (2064) on 03/01/2022 3:29:18 PM [facility] Pre/Post [id number] 20:29:23 Test Item Value Reference Range Interpretation Comments Ventricular rate (test code = 253) Atrial rate (test code = 255) NH interval (test code = 266) QRSD interval [...] Emery MD (2064) on 03/01/2022 3:29:18 PM [facility] Pre/Post [id number] 20:29:23 Test Item Value Reference Range Interpretation Comments Ventricular rate (test code = 253) Atrial rate (test code = 255) NH interval (test code = 266) QRSD interval [...] Emery MD (2064) on 03/01/2022 3:29:18 PM [facility] Pre/Post [id number] 20:29:23 Test Item Value Reference Range Interpretation Comments Ventricular rate (test code = 253) Atrial rate (test code = 255) NH interval (test code = 266) QRSD interval [...] Emery MD (2064) on 03/01/2022 3:29:18 PM [facility] Pre/Post [id number] 20:29:23 Test Item Value Reference Range Interpretation Comments Ventricular rate (test code = 253) Atrial rate (test code = 255) NH interval (test code = 266) QRSD interval [...] Emery MD (2064) on 03/01/2022 3:29:18 PM [facility] Pre/Post [id number] 20:29:23 Test Item Value Reference Range Interpretation Comments Ventricular rate (test code = 253) Atrial rate (test code = 255) NH interval (test code = 266) QRSD interval [...] Emery MD (2064) on 03/01/2022 3:29:18 PM [facility] Pre/Post [id number] 20:29:23 Test Item Value Reference Range Interpretation Comments Ventricular rate (test code = 253) Atrial rate (test code = 255) NH interval (test code = 266) QRSD interval [...] Emery MD (2064) on 03/01/2022 3:29:18 PM [facility] Pre/Post [id number] 20:29:23 Test Item Value Reference Range Interpretation Comments Ventricular rate (test code = 253) Atrial rate (test code = 255) NH interval (test code = 266) QRSD interval [...] Emery MD (2064) on 03/01/2022 3:29:18 PM [facility] Pre/Post [id number] 20:29:23 Test Item Value Reference Range Interpretation Comments Ventricular rate (test code = 253) Atrial rate (test code = 255) NH interval (test code = 266) QRSD interval [...] Emery MD (2064) on 03/01/2022 3:29:18 PM [facility] Pre/Post [id number] 20:29:23 Test Item Value Reference Range Interpretation Comments Ventricular rate (test code = 253) Atrial rate (test code = 255) NH interval (test code = 266) QRSD interval [...] Emery MD (2064) on 03/01/2022 3:29:18 PM [facility] Pre/Post [id number] 20:29:23 Test Item Value Reference Range Interpretation Comments Ventricular rate (test code = 253) Atrial rate (test code = 255) NH interval (test code = 266) QRSD interval [...] Emery MD (2064) on 03/01/2022 3:29:18 PM [facility] Pre/Post [id number] 20:29:23 Test Item Value Reference Range Interpretation Comments Ventricular rate (test code = 253) Atrial rate (test code = 255) NH interval (test code = 266) QRSD interval [...] Emery MD (2064) on 03/01/2022 3:29:18 PM [facility] Pre/Post [id number] 20:29:23 Test Item Value Reference Range Interpretation Comments Ventricular rate (test code = 253) Atrial rate (test code = 255) NH interval (test code = 266) QRSD interval [...] Emery MD (2064) on 03/01/2022 3:29:18 PM [facility] Pre/Post [id number] 20:29:23 Test Item Value Reference Range Interpretation Comments Ventricular rate (test code = 253) Atrial rate (test code = 255) NH interval (test code = 266) QRSD interval [...] Emery MD (2064) on 03/01/2022 3:29:18 PM [facility] Pre/Post [id number] 20:29:23 Test Item Value Reference Range Interpretation Comments Ventricular rate (test 84 code = 253) Atrial rate (test code = 84 255) NH interval (test code = 172 266) QRSD [...] Emery MD (2064) on 03/01/2022 3:29:18 PM [facility] Pre/Post [id number] 20:29:23 Test Item Value Reference Range Interpretation Comments Ventricular rate (test 84 code = 253) Atrial rate (test code = 84 255) NH interval (test code = 172 266) QRSD [...] Emery MD (2064) on 03/01/2022 3:29:18 PM [facility] Pre/Post [id number] 20:29:23 Test Item Value Reference Range Interpretation Comments Ventricular rate (test 84 code = 253) Atrial rate (test code = 84 255) NH interval (test code = 172 266) QRSD [...] Emery MD (2064) on 03/01/2022 3:29:18 PM [facility] Pre/Post [id number] 20:29:23 Test Item Value Reference Range Interpretation Comments Ventricular rate (test 84 code = 253) Atrial rate (test code = 84 255) NH interval (test code = 172 266) QRSD [...] Emery MD (2064) on 03/01/2022 3:29:18 PM [facility] Pre/Post [id number] 20:29:23 Test Item Value Reference Range Interpretation Comments Ventricular rate (test 84 code = 253) Atrial rate (test code = 84 255) NH interval (test code = 172 266) QRSD [...] Emery MD (2064) on 03/01/2022 3:29:18 PM [facility] Pre/Post [id number] 20:29:23 Test Item Value Reference Range Interpretation Comments Ventricular rate (test 84 code = 253) Atrial rate (test code = 84 255) NH interval (test code = 172 266) QRSD [...] Emery MD (2064) on 03/01/2022 3:29:18 PM [facility] Pre/Post [id number] 20:29:23 Test Item Value Reference Range Interpretation Comments Ventricular rate (test 84 code = 253) Atrial rate (test code = 84 255) NH interval (test code = 172 266) QRSD [...] Emery MD (2064) on 03/01/2022 3:29:18 PM [facility] Pre/Post [id number] 20:29:23 Test Item Value Reference Range Interpretation Comments Ventricular rate (test 84 code = 253) Atrial rate (test code = 84 255) NH interval (test code = 172 266) QRSD [...] Emery MD (2064) on 03/01/2022 3:29:18 PM [facility] Pre/Post [id number] 20:29:23 Test Item Value Reference Range Interpretation Comments Ventricular rate (test 84 code = 253) Atrial rate (test code = 84 255) NH interval (test code = 172 266) QRSD [...] Emery MD (2064) on 03/01/2022 3:29:18 PM [facility] Pre/Post [id number] 20:29:23 Test Item Value Reference Range Interpretation Comments Ventricular rate (test 84 code = 253) Atrial rate (test code = 84 255) NH interval (test code = 172 266) QRSD [...] Emery MD (2064) on 03/01/2022 3:29:18 PM [facility] Pre/Post [id number] 20:29:23 Test Item Value Reference Range Interpretation Comments Ventricular rate (test 84 code = 253) Atrial rate (test code = 84 255) NH interval (test code = 172 266) QRSD [...] Emery MD (2064) on 03/01/2022 3:29:18 PM [facility] Pre/Post [id number] 20:29:23 Test Item Value Reference Range Interpretation Comments Ventricular rate (test 84 code = 253) Atrial rate (test code = 84 255) NH interval (test code = 172 266) QRSD [...] Emery MD (2064) on 03/01/2022 3:29:18 PM [facility] Pre/Post [id number] 20:29:23 Test Item Value Reference Range Interpretation Comments Ventricular rate (test 84 code = 253) Atrial rate (test code = 84 255) NH interval (test code = 172 266) QRSD [...] Emery MD (2064) on 03/01/2022 3:29:18 PM [facility] Pre/Post [id number] 20:29:23 Test Item Value Reference Range Interpretation Comments Ventricular rate (test 84 code = 253) Atrial rate (test code = 84 255) NH interval (test code = 172 266) QRSD [...] Emery MD (2064) on 03/01/2022 3:29:18 PM [facility] Pre/Post [id number] 20:29:23 Test Item Value Reference Range Interpretation Comments Ventricular rate (test code = 253) Atrial rate (test code = 255) NH interval (test code = 266) QRSD interval [...] Emery MD (2064) on 03/01/2022 3:29:18 PM [facility]-CoV[facility] (COVID-19) RNA [Presence] in Respiratory specimen by TENZIN with probe [id number] 18:27:20 Test Item Value Reference Range Interpretation Comments SARS-CoV-2 (COVID-19) RNA Not detected [Presence] in Respiratory specimen by TENZIN with probe detection (test code = 19400-0) Whether patient is employed in a Unknown healthcare setting (test code = 37467-2) Whether the patient has symptoms Unknown related to condition of interest (test code = 77574-2) Whether the patient was Unknown hospitalized for condition of interest (test code = 08637-7) Whether the patient was admitted Unknown to intensive care unit (ICU) for condition of interest (test code = 51220-8) Whether patient resides in a Unknown congregate care setting (test code = 09083-1) status (test code = Unknown 23682-8) Date and time of symptom onset Unknown (test code = 62399-3) [facility] (COVID-19) RNA [Presence] in Respiratory specimen by TENZIN with probe [id number] 01:00:31 Test Item Value Reference Range Interpretation Comments SARS-CoV-2 (COVID-19) RNA Not detected [Presence] in Respiratory specimen by TENZIN with probe detection (test code = 03586-4) Whether patient is employed in a Unknown healthcare setting (test code = 34081-2) Whether the patient has symptoms Unknown related to condition of interest (test code = 86603-6) Whether the patient was Unknown hospitalized for condition of interest (test code = 48382-5) Whether the patient was admitted Unknown to intensive care unit (ICU) for condition of interest (test code = 71541-6) Whether patient resides in a Unknown congregate care setting (test code = 89202-1) status (test code = Unknown 29564-6) Date and time of symptom onset Unknown (test code = 38175-6) [facility] + SARS CoV 2 Ag panel, [place], upper respiratory [id number] 10:40:00 Test Item Value Reference Range Interpretation Comments RAPID SARS COV (test code = RAPID negative SARS COV) RAPID FLU A (test code = RAPID FLU negative A) RAPID FLU B (test code = RAPID FLU negative B) [facility] - Serum or [id number] 06:34:00 Test Item Value Reference Range Interpretation Comments cholesterol level (test code = 169 mg/dL 150-200 cholesterol level) triglycerides level (test code = 93 mg/dL <150 triglycerides level) HDL cholesterol (test code = HDL 52 mg/dL >55 L cholesterol) LDL cholesterol direct (test code = 108 mg/dL <100 H LDL cholesterol direct) cholesterol risk ratio (test code = 3.250 cholesterol risk ratio) [facility]Mass/volume] in [id number] 00:00:00 Test Item Value Reference Range Interpretation Comments Hemoglobin A1c [Mass/volume] in Blood 5.3 % 4.0-6.0 (test code = 36479-3) [facility] [Units/volume] in Serum or [id number] 00:00:00 Test Item Value Reference Range Interpretation Comments Thyrotropin [Units/volume] in 0.44 uIU/mL 0.36-3.74 Serum or Plasma (test code = 3016-3) [facility]
[2023-05-21] MEDS ORDERED: Phenylephrine HCl 10 MG/ML 1 ML VIAL ONE (17:24)
[2023-05-21] MEDS ORDERED: MORPHINE 4 MG/ML SYR ONE (17:32)
--- NOTE | 2023-05-21 18:06 | ER ---
Nurse's Notes [facility] Name: Francesco Avelar Age: 27 yrs Sex: Male : 1995 Arrival Date: 05/21/2023 Time: 16:30 Bed 19 Private MD: Diagnosis: Priapism, unspecified Presentation: 05/21 16:39 Chief complaint: Patient states: Erection since 10 AM. Tried home remedies that didn't ll1 help. Coronavirus screen: Client denies travel out of the [place] in the last 14 days. At this time, the client does not indicate any symptoms associated with coronavirus-19. Ebola Screen: Patient denies travel to an Ebola-affected area in the 21 days before illness onset. Initial Sepsis Screen: Does the patient meet any 2 criteria? No. Patient's initial sepsis screen is negative. Does the patient have a suspected source of infection? No. Patient's initial sepsis screen is negative. Risk Assessment: Do you want to hurt yourself or someone else? Patient reports no desire to harm self or others. Onset of symptoms was May 21, 2023. 16:39 Method Of Arrival: Ambulatory ll1 16:39 Acuity: MCKENZIE 2 ll1 Triage Assessment: 16:41 General: Appears uncomfortable, Behavior is calm, cooperative, appropriate for age. ll1 Pain: Complains of pain in penis Pain currently is 6 out of 10 on a pain scale. Quality of pain is described as aching, throbbing. : Reports erection since 10 AM. Historical: - Allergies: 16:36 Imitrex; ll1 - PMHx: 16:36 adhd; Asthma; Bipolar disorder; priapism; spinal stenosis; ll1 - PSHx: 16:36 L5 S1 laminectomy; ll1 - Immunization history:: Adult Immunizations up to date. - Social history:: Smoking status: Patient reports the use of cigarette tobacco products, smokes one pack cigarettes per day. Screenin:35 [facility] ED Fall Risk Assessment (Adult) History of falling in the last 3 months, rs5 including since admission No falls in past 3 months (0 pts) Confusion or Disorientation No (0 pts) Intoxicated or Sedated No (0 pts) Impaired Gait No (0 pts) Mobility Assist Device Used No (0 pt) Altered Elimination No (0 pt). Abuse screen: Denies threats or abuse. Nutritional screening: No deficits noted. Tuberculosis screening: No symptoms or risk factors identified. Assessment: 16:35 General: Appears in no apparent distress. uncomfortable, Behavior is calm, cooperative. rs5 Pain: Complains of pain in penis Pain does not radiate. Pain currently is 5 out of 10 on a pain scale. Quality of pain is described as heavy, pressure, Pain began 4 hours ago. Is continuous. Neuro: Level of Consciousness is awake, alert, obeys commands, Oriented to person, place, time, situation. Cardiovascular: Heart tones S1 S2 present Capillary refill < 3 seconds Patient's skin is warm and dry. Rhythm is regular. Respiratory: Airway is patent Respiratory effort is even, unlabored, Respiratory pattern is regular, symmetrical. GI: Abdomen is round non-distended, Bowel sounds present X 4 quads. Abd is soft and non tender X 4 quads. : Pt has an erection. 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 EENT: No signs and/or symptoms were reported regarding the EENT system. Derm: Skin is intact, Skin is dry, Skin is normal, Skin temperature is warm. 16:35 Musculoskeletal: Range of motion: intact in all extremities. rs5 16:35 Reassessment: Pt states "My private part hurts but I don't want anything for pain at rs5 the moment". 17:10 Reassessment: Pt states "I think I would like something for pain." Provider notified . rs5 17:10 Pain: Complains of pain in penis Pain does not radiate. Pain currently is 8 out of 10 rs5 on a pain scale. Quality of pain is described as heavy, pressure, Is continuous, Noted to be grimacing. 17:30 Reassessment: To bedside to assist provider with med adm for priapism. Pt tolerated rs5 procedure well. 17:40 Reassessment: Pt no longer experiencing priapism . rs5 18:04 Reassessment: Patient and/or family updated on plan of care and expected duration. Pain rs5 level reassessed. Patient is alert, oriented x 3, equal unlabored respirations, skin warm/dry/pink. Vital Signs: 16:39 BP 139 / 89; Pulse 92; Resp 18; Temp 98.3; Pulse Ox 98% ; Weight 104.33 kg; Height 5 ll1 ft. 11 in. ; Pain 6/10; 17:00 BP 133 / 84; Pulse 90; Resp 17; Pulse Ox 98% on R/A; rs5 18:02 BP 135 / 82; Pulse 88; Resp 18; Pulse Ox 99% on R/A; rs5 16:39 Body Mass Index 32.08 (104.33 kg, 180.34 cm) ll1 16:39 Pain Scale: Adult ll1 ED Course: 16:33 Patient arrived in ED. im 16:36 Arm band placed on Patient placed in an exam room, on a stretcher. ll1 16:36 Patient has correct armband on for positive identification. Placed in gown. Bed in low rs5 position. Call light in reach. Side rails up X2. 16:41 Triage completed. ll1 16:41 Justyn Morton MD is Attending Physician. ec2 16:49 Eliazar Bowser RN is Primary Nurse. rs5 18:10 No provider procedures requiring assistance completed. Patient did not have IV access rs5 during this emergency room visit. Administered Medications: 17:24 Drug: morphine IM 4 mg IM once Route: IM; Site: left deltoid; rs5 17:50 Follow up: Response: No adverse reaction; Pain is decreased rs5 17:30 Drug: phenylephrine 1 vials Sub-Q See Administration Instructions; for Penile injection rs5 {Note: Administered to penis by provider, not to left lower abdomen .} Route: Sub-Q; Site: left lower abdomen; 18:00 Follow up: Response: No adverse reaction; Pain is decreased; Other; Pt is no longer rs5 expiriencing priaprism 17:58 Not Given (Duplicate Order): phenylephrine1 mg IV at calculated rate See Administration rs5 Instructions; for penile injection Medication: 18:02 VIS not applicable for this client. rs5 Intake: Outcome: 18:05 Discharge ordered by . ec2 18:10 Discharged to home ambulatory, rs5 18:10 Condition: stable 18:10 Discharge instructions given to patient, 18:15 Patient left the ED. rs5 Signatures: Ruthie Bonilla RN RN ll1 Eliazar Bowser RN RN rs5 Mily Altman Justyn Morton MD MD ec2 Corrections: (The following items were deleted from the chart) 17:56 16:35 : No signs and/or symptoms were reported regarding the genitourinary system. rs5rs5 18:00 17:50 phenylephrine 1 vials Sub-Q in left lower abdomen; Administered to penis by rs5 provider, not to left lower abdomen rs5 18:01 17:30 Reassessment: To bedside to assist provider with med adm for priapism . rs5 rs5
--- NOTE | 2023-05-21 18:06 | EDPHYS ---
Physician Documentation [facility] Name: Francesco Avelar Age: 27 yrs Sex: Male : 1995 Arrival Date: 05/21/2023 Time: 16:30 Bed 19 Private MD: ED Physician Justyn Morton HPI: 05/21 17:07 This 27 yrs old Male presents to ER via Ambulatory with complaints of Penile ec2 Problem - Its stuck. 17:07 Patient arrives today due to concern for priapism. Present. Patient with history of ec2 recurrent priapism requiring aspiration. States that he has not been able to detumescence 7 hours ago. Patient reports no history of sickle cell disease, was told that this may be a congenital problem.. Historical: - Allergies: 16:36 Imitrex; ll1 - PMHx: 16:36 adhd; Asthma; Bipolar disorder; priapism; spinal stenosis; ll1 - PSHx: 16:36 L5 S1 laminectomy; ll1 - Immunization history:: Adult Immunizations up to date. - Social history:: Smoking status: Patient reports the use of cigarette tobacco products, smokes one pack cigarettes per day. ROS: 17:07 Constitutional: as per hpi ec2 Exam: 17:07 Constitutional: GEN: NAD Head: atraumatic Eyes: EOMI Ears: External ears are ec2 normal. CV: regular rate LUNGS: no respiratory distress ABD: non-distended : Erect penis that is firm, no discoloration, no crepitus SKIN: no evidence of rashes MSK: no evidence of trauma NEURO: moves all extremities equally Vital Signs: 16:39 BP 139 / 89; Pulse 92; Resp 18; Temp 98.3; Pulse Ox 98% ; Weight 104.33 kg; Height 5 ll1 ft. 11 in. ; Pain 6/10; 17:00 BP 133 / 84; Pulse 90; Resp 17; Pulse Ox 98% on R/A; rs5 18:02 BP 135 / 82; Pulse 88; Resp 18; Pulse Ox 99% on R/A; rs5 16:39 Body Mass Index 32.08 (104.33 kg, 180.34 cm) ll1 16:39 Pain Scale: Adult ll1 Procedures: 17:45 Performed Priapism Reduction. I performed a sterile procedure with insertion of a ec2 27-gauge needle with positive aspiration for blood from the 2 o'clock position of the corpus cavernosum, I injected 500 mcg of phenylephrine, after completion I compressed for several minutes with detumescence.. MDM: 16:42 Patient medically screened. ec2 17:07 Data reviewed: vital signs. ED course: Patient arrives today for evaluation of ec2 priapism. Examination remarkable for findings as noted above. Will attempt detumescence with phenylephrine injection. Patient states that he typically does not undergo a nerve block and does not typically have aspiration. I will forego these interventions as per patient request and we will proceed with phenylephrine injection.. 17:45 ED course: See procedure note, detumescence completed with phenylephrine 500 mcg ec2 injection. I monitored him after the procedure with no postprocedure complication. Will discharge home, return precautions given.. 18:06 ED course: On reassessment patient remains detumesced, will discharge home.. ec2 Administered Medications: 17:24 Drug: morphine IM 4 mg IM once Route: IM; Site: left deltoid; rs5 17:50 Follow up: Response: No adverse reaction; Pain is decreased rs5 17:30 Drug: phenylephrine 1 vials Sub-Q See Administration Instructions; for Penile injection rs5 {Note: Administered to penis by provider, not to left lower abdomen .} Route: Sub-Q; Site: left lower abdomen; 18:00 Follow up: Response: No adverse reaction; Pain is decreased; Other; Pt is no longer rs5 expiriencing priaprism 17:58 Not Given (Duplicate Order): phenylephrine1 mg IV at calculated rate See Administration rs5 Instructions; for penile injection Disposition Summary: 05/21/23 18:05 Discharge Ordered Notes: Location: Home ec2 Condition: Stable ec2 Diagnosis - Priapism, unspecified ec2 Discharge Instructions: - Discharge Summary Sheet ll1 - Priapism ec2 Forms: - SBAR form ll1 - Medication Reconciliation Form ec2 - Thank You Letter ec2 - Antibiotic Education ec2 - Prescription Opioid Use ec2 - Patient Portal Instructions ec2 - Leadership Thank You Letter ec2 Signatures: Ruthie Bonilla RN RN ll1 Eliazar Bowser RN RN rs5 Justyn Morton MD MD ec2
[2023-05-21 18:22] VITALS: BP 139/89; TEMP 98.3; O2SAT 98
== END 2023-05-21 18:15 | disposition home or self-care (01) ==
LOC: ER 16:30
DX: N48.30 Priapism, unspecified (principal); F17.210 Nicotine dependence, cigarettes, uncomplicated; Z88.8 Allergy status to other drugs, medicaments and biological substances
CPT/HCPCS: 96372; 99284; J2371

== ENCOUNTER 2023-05-31 10:24 | Emergency (ER) | payer BC ==
--- OUTSIDE RECORDS SUMMARY | 2023-05-31 10:35 | XMS REPORT | Continuity of Care Document ---
:1995 Author Organization [facility] t Address [address] [place]. [address] [place] [address] Support Name Relationship Address Phone BALA CLARK Unavailable [address] [phone] [place] [address] GREGORY DUMONT Unavailable [address] [phone] [place] [address] PRISCILA MAGANA MD Emergency Provider [address] [place] [address] PHYSICIAN, NO Primary Care Physician Unavailable Unavailab CLAIR Art Next of Kin [address] [place] [address] MD PRISCILA MAGANA Emergency Provider [address] [place] [address] MD [facility] Primary Care Physician [address] [place] [address] MD CELSA MUNGUIA Emergency Provider [address] [place] [address] MD BARBARA VELAZQUEZ Emergency Provider [address] [place] [address] MD SHI ANAYA Emergency Provider [address] [place] [address] DO ABRAHAM MCCRACKEN Admitting Provider [address] [place] [address] MD HARRISON RICO Emergency Provider [address] [place] [address] MD ALEXA TORRES Emergency Provider [address] [place] [address] MD JASON DUNAWAY Emergency Provider [address] [place] [address] [phone] [place] [address] Care Team Providers Name Role Phone Ronnell [...] Clinician Unavailable ZBIGNIEW DIAS Attending Clinician Unavailable Bonita Admitting Clinician Unavailable [...] Date S ource [place] [id number] 2014 (PPO) 00:00:00 [facility] [id number] 2019 [place] 00:00:00 ([place] [id number] [place] [facility] - [id number] [facility] Problems Condition Condition Condition Status [...] Added automatic ally from request for surgery [id number] Priapism Priapism Disease Active Metho di 8-17 st 00:00: Hospita 00 l [id number] Jock itch Problem Com [facility] [id number] Scrotal Problem Common abscess [facility] [...] sumatrip Active Unknown Commo n porras porras [facility] Family History Family Member Diagnosis Comments Start Date Stop Date Source Natural father Doan's palsy [facility] Natural mother Fibromyalgia [facility] Social History Social Habit Start Date Stop Date Quantity Comments Source History of Tobacco Current Smoker [facility] - Use [facility] Gender identity [facility] Sexual orientation [facility] Alcohol intake 2023-05-19 2023-05-19 Current drinker [facility] dist 00:00:00 00:00:00 of alcohol Hospital (finding) History of Social 2023-05-19 2023-05-[address] function 00:00:00 00:00:00 Hospital Tobacco use and 2022-03-01 2022-03-01 Smokeless [facility] exposure 00:00:00 00:00:00 tobacco non-user Hospital Alcohol Comment 2022-03-01 2022-03-01 EVERY OTHER Methodis t 00:00:00 00:00:00 [facility] Sex Assigned At [birth year] [facility] 00:00:00 00:00:00 Hospital Smoking Status Start Date Stop Date Source Heavy Tobacco Smoker [facility] Smokes tobacco daily 2022-03-01 00:00:00 [facility] Medications Ordered Filled Start Stop Current Ordering Indication Dosage Frequency Signature Comments Components Source Medication Medication Date Date Medication? Clinician (SIG) Name Name budesonide- 2022-07 Yes 2{puff} Q.5D Inhale 2 Methodi formoteroL 1-[address] (SYMBICORT) 12:28: (two) Hospi ta 160-4.5 41 times a l mcg/actuati day. on inhaler busPIRone 2022-07 Yes 5mg Q.5D Take 1 Method i (BUSPAR) 5 1-09 tablet (5 st MG tablet 12:28: mg total) Hos félix 41 by mouth 2 l (two) times a day. gabapentin 2022-07 Yes 600mg QD Take 2 Meth joanna (NEURONTIN) 1-[address] 300 mg 12:28: (600 mg Hospita capsule 41 total) by l mouth daily. hydrOXYzine 2022-07 Yes 25mg QD Take 1 Meth joanna (ATARAX) 25 1-09 tablet (25 st MG tablet 12:28: mg total) Hos félix 41 by mouth l daily. levalbutero 2022-07 Yes 2{puff} Q2D Inhale 2 Methodi l (XOPENEX 1-[address] HFA) 45 12:28: every Hospita mcg/actuati 41 other day. l on inhaler budesonide- 2022-07 Yes 2{puff} Q.5D Inhale 2 Methodi formoteroL 1-[address] (SYMBICORT) 12:28: (two) Hospi ta 160-4.5 41 times a l mcg/actuati day. on inhaler busPIRone 2022-07 Yes 5mg Q.5D Take 1 Method i (BUSPAR) 5 1-09 tablet (5 st MG tablet 12:28: mg total) Hos félix 41 by mouth 2 l (two) times a day. gabapentin 2022-07 Yes 600mg QD Take 2 Meth joanna (NEURONTIN) 1-[address] 300 mg 12:28: (600 mg Hospita capsule 41 total) by l mouth daily. hydrOXYzine 2022-07 Yes 25mg QD Take 1 Meth joanna (ATARAX) 25 1-09 tablet (25 st MG tablet 12:28: mg total) Hos félix 41 by mouth l daily. levalbutero 2022-07 Yes 2{puff} Q2D Inhale 2 Methodi l (XOPENEX 1-[address] HFA) 45 12:28: every Hospita mcg/actuati 41 other day. l on inhaler Bactrim DS Bactrim DS 2022-0 No 1{table BID Bactrim DS 800-160 MG 800-160 MG 5-18 t} 800-160 MG 00:00: 00 Bactrim DS Bactrim DS 2022-0 No 1{table BID Bactrim DS 800-160 MG 800-160 MG 5-18 t} 800-160 MG 00:00: 00 Bactrim DS Bactrim DS 2022-0 No 1{table BID Bactrim DS 800-160 MG 800-160 MG 5-18 t} 800-160 MG 00:00: 00 Sildenafil Sildenafil 0 No 1{table QD Sildenafil Citrate 20 Citrate 20 3-23 t} Citrate 20 MG MG 00:00: MG 00 Sildenafil Sildenafil 0 No 1{table QD Sildenafil Citrate 20 Citrate 20 3-23 t} Citrate 20 MG MG 00:00: MG 00 Sildenafil Sildenafil No 1{table QD Sildenafil Citrate 20 Citrate 20 3-23 t} Citrate 20 MG MG 00:00: MG 00 Terbutaline Terbutaline 2021-07 No Terbutalin Sulfate 2.5 Sulfate 2.5 09 e Sulfate MG MG 00:00: 2.5 MG [...] a l mcg/actuati day. on inhaler budesonide- 0 Yes 2{puff} Q.5D [...] félix 10 by mouth l daily. hydrOXYzine 0 Yes 25mg QD Take 1 Meth joanna (ATARAX) 25 8-23 tablet (25 st MG tablet 11:57: mg total) Hos félix 10 by mouth l daily. levalbutero 0 Yes 2{puff} Q2D Inhale 2 Methodi l (XOPENEX 8-[address] HFA) 45 11:57: every Hospita mcg/actuati 10 other day. l on inhaler levalbutero 0 Yes 2{puff} Q2D Inhale 2 [...] other day. l on inhaler acetaminoph 0 202- No [id number] 1{tbl} Q6H Take 1 Methodi en-codeine 8-23 -[address] (TYLENOL 00:00: 04:59 mouth [...] to 10 [place] [id number] 1{tbl} Q6H Take 1 Methodi en-codeine 03-02 [...] up to 5 days .acute pain. traMADoL 89195 50mg Q6H Take 1 Metho di (ULTRAM) 50 8-19 08-25 tablet (50 s t mg tablet 00:00: 04:59 mg total) Ho spita 00 :00 by mouth l every 6 (six) hours as needed for moderate pain for up to 5 days .acute pain. traMADoL [id number] 50mg Q6H Take 1 Metho di (ULTRAM) [...] up to 5 days .acute pain. traMADoL 16050 50mg Q6H Take 1 Metho di (ULTRAM) [...] up to 5 days .acute pain. traMADoL 94793 50mg Q6H Take 1 Metho di (ULTRAM) [...] 5 days .acute pain. traMADoL 2021- No [id number] 50mg Q6H Take 1 Metho di (ULTRAM) [...] pain) for up to 7 days. ibuprofen 2021-2021- No 600mg Q6H Take 1 Meth joanna [...] No INJECT ONE [facility] 11-25 08-17 (1) UNIT st 400 mg 00:00: [...] extended ONCE A rel syring MONTH Abilify 2022-0 2022- No INJECT ONE Met hodi [...] Immunizations Ordered Filled Immunization Date Status Comments Sour e Immunization Name Name Td (adult) Td (adult) 2022-11-26 Completed [place] preservative free preservative free 12:13:00 [facility] PFIZER COVID-19 2020-10-16 Completed [facility] MRNA VACCINATION 00:00:00 [facility] PFIZER COVID-19 2020-10-16 Completed [facility] MRNA VACCINATION 00:00:00 [facility] PFIZER COVID-19 2020-10-16 Completed [facility] MRNA VACCINATION 00:00:00 [facility] PFIZER COVID-19 2020-10-16 Completed [facility] MRNA VACCINATION 00:00:00 [facility] PFIZER COVID-19 2020-10-16 Completed [facility] MRNA VACCINATION 00:00:00 [facility] PFIZER COVID-19 2020-10-16 Completed [facility] MRNA VACCINATION 00:00:00 [facility] PFIZER COVID-19 2020-10-16 Completed [facility] MRNA VACCINATION 00:00:00 [facility] PFIZER COVID-19 2020-10-16 Completed [facility] MRNA VACCINATION 00:00:00 [facility] PFIZER COVID-19 2020-10-16 Completed [facility] MRNA VACCINATION 00:00:00 [facility] PFIZER COVID-19 2020-10-16 Completed [facility] MRNA VACCINATION 00:00:00 [facility] PFIZER COVID-19 2020-10-16 Completed [facility] MRNA VACCINATION 00:00:00 [facility] PFIZER COVID-19 2020-10-16 Completed [facility] MRNA VACCINATION 00:00:00 [facility] PFIZER COVID-19 2020-10-16 Completed [facility] MRNA VACCINATION 00:00:00 [facility] PFIZER COVID-19 2020-10-16 Completed [facility] MRNA VACCINATION 00:00:00 [facility] PFIZER COVID-19 2020-10-16 Completed [facility] MRNA VACCINATION 00:00:00 [facility] PFIZER COVID-19 2020-10-16 Completed [facility] MRNA VACCINATION 00:00:00 [facility] PFIZER COVID-19 2020-10-16 Completed [facility] MRNA VACCINATION 00:00:00 [facility] PFIZER COVID-19 2020-10-16 Completed [facility] MRNA VACCINATION 00:00:00 [facility] PFIZER COVID-19 2020-10-16 Completed [facility] MRNA VACCINATION 00:00:00 [facility] PFIZER COVID-19 2020-10-16 Completed [facility] MRNA VACCINATION 00:00:00 [facility] PFIZER COVID-19 2020-10-16 Completed [facility] MRNA VACCINATION 00:00:00 [facility] PFIZER COVID-19 2020-10-16 Completed [facility] MRNA VACCINATION 00:00:00 [facility] PFIZER COVID-19 2020-10-16 Completed [facility] MRNA VACCINATION 00:00:00 [facility] PFIZER COVID-19 2020-10-16 Completed [facility] MRNA VACCINATION 00:00:00 [facility] PFIZER COVID-19 2020-10-16 Completed [facility] MRNA VACCINATION 00:00:00 [facility] PFIZER COVID-19 2020-10-16 Completed [facility] MRNA VACCINATION 00:00:00 [facility] PFIZER COVID-19 2020-10-16 Completed [facility] MRNA VACCINATION 00:00:00 [facility] PFIZER COVID-19 2020-10-16 Completed [facility] MRNA VACCINATION 00:00:00 [facility] PFIZER COVID-19 2020-10-16 Completed [facility] MRNA VACCINATION 00:00:00 [facility] PFIZER COVID-19 2020-10-16 Completed [facility] MRNA VACCINATION 00:00:00 [facility] PFIZER COVID-19 2020-10-16 Completed [facility] MRNA VACCINATION 00:00:00 [facility] COVID-19, mRNA, COVID-19, mRNA, 2020-10-16 Completed Adryan ulloa LNP-S, PF, 30 LNP-S, PF, 30 00:00:00 [facility] Group mcg/0.3 mL dose mcg/0.3 mL dose (Pfizer-BioNTech) - (Pfizer-BioNTech) - ML ML PFIZER COVID-19 2020-09-25 Completed [facility] MRNA VACCINATION 00:00:00 [facility] PFIZER COVID-19 2020-09-25 Completed [facility] MRNA VACCINATION 00:00:00 [facility] COVID-19 2020-09-25 Completed [facility] MRNA VACCINATION 00:00:00 [facility] PFIZER COVID-19 2020-09-25 Completed [facility] MRNA VACCINATION 00:00:00 [facility] PFIZER COVID-19 2020-09-25 Completed [facility] MRNA VACCINATION 00:00:00 [facility] PFIZER COVID-19 2020-09-25 Completed [facility] MRNA VACCINATION 00:00:00 [facility] PFIZER COVID-19 2020-09-25 Completed [facility] MRNA VACCINATION 00:00:00 [facility] PFIZER COVID-19 2020-09-25 Completed [facility] MRNA VACCINATION 00:00:00 [facility] PFIZER COVID-19 2020-09-25 Completed [facility] MRNA VACCINATION 00:00:00 [facility] PFIZER COVID-19 2020-09-25 Completed [facility] MRNA VACCINATION 00:00:00 [facility] PFIZER COVID-19 2020-09-25 Completed [facility] MRNA VACCINATION 00:00:00 [facility] PFIZER COVID-19 2020-09-25 Completed [facility] MRNA VACCINATION 00:00:00 [facility] PFIZER COVID-19 2020-09-25 Completed [facility] MRNA VACCINATION 00:00:00 [facility] PFIZER COVID-19 2020-09-25 Completed [facility] MRNA VACCINATION 00:00:00 [facility] PFIZER COVID-19 2020-09-25 Completed [facility] MRNA VACCINATION 00:00:00 [facility] PFIZER COVID-19 2020-09-25 Completed [facility] MRNA VACCINATION 00:00:00 [facility] PFIZER COVID-19 2020-09-25 Completed [facility] MRNA VACCINATION 00:00:00 [facility] PFIZER COVID-19 2020-09-25 Completed [facility] MRNA VACCINATION 00:00:00 [facility] PFIZER COVID-19 2020-09-25 Completed [facility] MRNA VACCINATION 00:00:00 [facility] PFIZER COVID-19 2020-09-25 Completed [facility] MRNA VACCINATION 00:00:00 [facility] PFIZER COVID-19 2020-09-25 Completed [facility] MRNA VACCINATION 00:00:00 [facility] PFIZER COVID-19 2020-09-25 Completed [facility] MRNA VACCINATION 00:00:00 [facility] PFIZER COVID-19 2020-09-25 Completed [facility] MRNA VACCINATION 00:00:00 [facility] PFIZER COVID-19 2020-09-25 Completed [facility] MRNA VACCINATION 00:00:00 [facility] PFIZER COVID-19 2020-09-25 Completed [facility] MRNA VACCINATION 00:00:00 [facility] PFIZER COVID-19 2020-09-25 Completed [facility] MRNA VACCINATION 00:00:00 [facility] PFIZER COVID-19 2020-09-25 Completed [facility] MRNA VACCINATION 00:00:00 [facility] PFIZER COVID-19 2020-09-25 Completed [facility] MRNA VACCINATION 00:00:00 [facility] PFIZER COVID-19 2020-09-25 Completed [facility] MRNA VACCINATION 00:00:00 [facility] PFIZER COVID-19 2020-09-25 Completed [facility] MRNA VACCINATION 00:00:00 [facility] PFIZER COVID-19 2020-09-25 Completed [facility] MRNA VACCINATION 00:00:00 [facility] COVID-19, mRNA, COVID-19, mRNA, 2020-09-25 Completed Cornelius laila LNP-S, PF, 30 LNP-S, PF, 30 00:00:00 [facility] mcg/0.3 mL dose mcg/0.3 mL dose (Elepath) - (Elepath) - ML ML influenza, influenza, 2018-05-11 Completed [place] injectable, injectable, 00:00:00 [facility] p quadrivalent, quadrivalent, preservative free - preservative free - ML ML influenza, influenza, 2017-06-27 Completed [place] seasonal, seasonal, 00:00:00 [facility] injectable, injectable, preservative free - preservative free - ML ML DTaP, unspecified DTaP, unspecified 1998-10-20 Completed [place] formulation - ML formulation - ML 00:00:00 Co dical Group Hib (PRP-T) - ML Hib (PRP-T) - ML 1998-10-20 Completed [place] 00:00:00 [facility] varicella - ML varicella - ML 1998-07-10 Completed [place] [facility] 00:00:00 [facility] MMR - ML MMR - ML 1998-07-10 Completed [place] 00:00:00 [facility] Group DTaP, unspecified DTaP, unspecified 1997 Completed [place] formulation - ML formulation - ML 00:00:00 Co dical Group Hep B, adolescent Hep B, adolescent 1995 Completed [place] or pediatric - ML or pediatric - ML 00:00:00 [facility] Group OPV - ML OPV - ML 1995 Completed [place] 00:00:00 [facility] Group Hib, unspecified Hib, unspecified 1997 Completed [place] formulation - ML formulation - ML 00:00:00 Me dical Group DTaP, unspecified DTaP, unspecified 1997 Completed [place] formulation - ML formulation - ML 00:00:00 Me dical Group OPV - ML OPV - ML 1995 Completed [place] 00:00:00 [facility] Group Hib, unspecified Hib, unspecified 1997 Completed [place] formulation - ML formulation - ML 00:00:00 Me dical Group DTaP, unspecified DTaP, unspecified 1997 Completed [place] formulation - ML formulation - ML 00:00:00 Me dical Group OPV - ML OPV - ML 1995 Completed [place] 00:00:00 [facility] Group Hib, unspecified Hib, unspecified 1995 Completed [place] formulation - ML formulation - ML 00:00:00 Me dical Group Hep B, adolescent Hep B, adolescent 1995 Completed [place] or pediatric - ML or pediatric - ML 00:00:00 Medical Group Hep B, adolescent Hep B, adolescent 1995 Completed [place] or pediatric - ML or pediatric - ML 00:00:00 [facility] PFIZER COVID-19 Unknown Completed [facility] VACCINATION Hospital PFIZER COVID-19 Unknown Completed [facility] VACCINATION Hospital PFIZER COVID-19 Unknown Completed [facility] VACCINATION Hospital PFIZER COVID-19 Unknown Completed [facility] VACCINATION Hospital Td (adult) Td (adult) Unknown Completed [place] preservative free preservative free Medical Group DTaP, unspecified DTaP, unspecified Unknown Completed [place] formulation - ML formulation - ML Me dical Group Hib (PRP-T) - ML Hib (PRP-T) - ML Unknown Completed [place] [facility] varicella - ML varicella - ML Unknown Completed [place] [facility] MMR - ML MMR - ML Unknown Completed [place] [facility] DTaP, unspecified DTaP, unspecified Unknown Completed [place] formulation - ML formulation - ML Me dical Group Hep B, adolescent Hep B, adolescent Unknown Completed [place] or pediatric - ML or pediatric - ML Medical Group OPV - ML OPV - ML Unknown Completed [place] [facility] Hib, unspecified Hib, unspecified Unknown Completed [place] formulation - ML formulation - ML Me dical Group DTaP, unspecified DTaP, unspecified Unknown Completed [place] formulation - ML formulation - ML Me dical Group OPV - ML OPV - ML Unknown Completed [place] [facility] Hib, unspecified Hib, unspecified Unknown Completed [place] formulation - ML formulation - ML Me dical Group DTaP, unspecified DTaP, unspecified Unknown Completed [place] formulation - ML formulation - ML Me dical Group OPV - ML OPV - ML Unknown Completed [place] [facility] Hib, unspecified Hib, unspecified Unknown Completed [place] formulation - ML formulation - ML Me dical Group Hep B, adolescent Hep B, adolescent Unknown Completed [place] or pediatric - ML or pediatric - ML Medical Group Hep B, adolescent Hep B, adolescent Unknown Completed [place] or pediatric - ML or pediatric - [...] - ML ML influenza, influenza, Unknown Completed [place] injectable, injectable, Medical Gr[facility] p quadrivalent, quadrivalent, preservative free - preservative free - ML ML influenza, influenza, Unknown Completed [place] seasonal, seasonal, [facility] Group injectable, injectable, preservative free - preservative free - ML ML Vital Signs Vital Name Observation Time Observation Value Comments Source Body Weight 2023-05-17 00:00:00 3688 [oz_av] [facility] BP Diastolic 2023-05-17 00:00:00 77 mm[Hg] [facility] Height 2023-05-17 00:00:00 71 [in_i] [facility] [facility] BMI (Body Mass 2023-05-17 00:00:00 32.1 kg/m2 [facility] Medical Index) Group BP Systolic 2023-05-17 00:00:00 121 mm[Hg] [facility] BP Diastolic 2022-11-25 00:00:00 82 mm[Hg] [facility] Height 2022-11-25 00:00:00 71 [in_i] [facility] BMI (Body Mass 2022-11-25 00:00:00 31.7 kg/m2 [facility] Medical Index) Group BP Systolic 2022-11-25 00:00:00 128 mm[Hg] [facility] Body Weight 2022-11-25 00:00:00 3632 [oz_av] [facility] bmi 2022-11-25 16:30:00 31.38 kg/m2 [facility] oximetry 2022-11-25 16:30:00 99 % [facility] respiratory rate 2022-11-25 16:30:00 18 /min Comm on [facility] blood pressure 2022-11-25 16:30:00 119 mm[Hg] [facility] - systolic [facility] blood pressure 2022-11-25 16:30:00 68 mm[Hg] [facility] - diastolic [facility] height 2022-11-25 16:30:00 71 [in_i] [facility] weight 2022-11-25 16:30:00 225 [lb_av] [facility] temperature 2022-11-25 16:30:00 97.2 [degF] [facility] BP Diastolic 2022-11-17 00:00:00 68 mm[Hg] [facility] Height 2022-11-17 00:00:00 71 [in_i] [facility] BMI (Body Mass 2022-11-17 00:00:00 32 kg/m2 [facility] Medical Index) Group BP Systolic 2022-11-17 00:00:00 105 mm[Hg] [facility] Body Weight 2022-11-17 00:00:00 3673 [oz_av] [facility] height 2022-09-30 11:30:00 71 [in_i] [facility] weight 2022-09-30 11:30:00 231.4 [lb_av] [facility] temperature 2022-09-30 11:30:00 97.6 [degF] [facility] bmi 2022-09-30 11:30:00 32.27 kg/m2 [facility] oximetry 2022-09-30 11:30:00 96 % [facility] respiratory rate 2022-09-30 11:30:00 18 /min Comm on [facility] blood pressure 2022-09-30 11:30:00 121 mm[Hg] [facility] - systolic [facility] blood pressure 2022-09-30 11:30:00 77 mm[Hg] [facility] - diastolic [facility] BP Diastolic 2022-06-25 00:00:00 84 mm[Hg] [facility] Height 2022-06-25 00:00:00 71 [in_i] [facility] BMI (Body Mass 2022-06-25 00:00:00 33.5 kg/m2 [facility] Medical Index) Group BP Systolic 2022-06-25 00:00:00 133 mm[Hg] [facility] Body Weight 2022-06-25 00:00:00 3848 [oz_av] [facility] BP Diastolic 2022-06-21 00:00:00 73 mm[Hg] [facility] Height 2022-06-21 00:00:00 71 [in_i] [facility] BMI (Body Mass 2022-06-21 00:00:00 34.4 kg/m2 [facility] Medical Index) Group BP Systolic 2022-06-21 00:00:00 112 mm[Hg] [facility] Body Weight 2022-06-21 00:00:00 3942 [oz_av] [facility] height 2022-05-19 10:30:00 71 [in_i] [facility] weight 2022-05-19 10:30:00 254.6 [lb_av] [facility] temperature 2022-05-19 10:30:00 97.6 [degF] [facility] bmi 2022-05-19 10:30:00 35.51 kg/m2 [facility] oximetry 2022-05-19 10:30:00 98 % [facility] respiratory rate 2022-05-19 10:30:00 18 /min Comm on [facility] blood pressure 2022-05-19 10:30:00 35 mm[Hg] [facility] - systolic [facility] blood pressure 2022-05-19 10:30:00 78 mm[Hg] [facility] - diastolic [facility] BP Diastolic 2022-03-09 00:00:00 77 mm[Hg] [facility] Height 2022-03-09 00:00:00 71 [in_i] [facility] BMI (Body Mass 2022-03-09 00:00:00 35.6 kg/m2 [facility] Medical Index) Group BP Systolic 2022-03-09 00:00:00 122 mm[Hg] [facility] Body Weight 2022-03-09 00:00:00 4078.4 [oz_av] [facility] BP Diastolic 2021-11-06 00:00:00 83 mm[Hg] [facility] Height 2021-11-06 00:00:00 71 [in_i] [facility] BMI (Body Mass 2021-11-06 00:00:00 35 kg/m2 [facility] Medical Index) Group BP Systolic 2021-11-06 00:00:00 127 mm[Hg] [facility] Body Weight 2021-11-06 00:00:00 4020 [oz_av] [facility] Height 2021-09-14 00:00:00 71 [in_i] [facility] BMI (Body Mass 2021-09-14 00:00:00 34.6 kg/m2 [facility] Medical Index) Group Body Weight 2021-09-14 00:00:00 3968 [oz_av] [facility] BP Diastolic 2021-03-26 00:00:00 75 mm[Hg] [facility] Height 2021-03-26 00:00:00 71 [in_i] [facility] BMI (Body Mass 2021-03-26 00:00:00 31.1 kg/m2 [facility] Index) Group BP Systolic 2021-03-26 00:00:00 118 mm[Hg] [facility] Body Weight 2021-03-26 00:00:00 3569 [oz_av] [facility] BP Diastolic 2021-03-10 00:00:00 69 mm[Hg] [facility] Height 2021-03-10 00:00:00 71 [in_i] [facility] BMI (Body Mass 2021-03-10 00:00:00 30.8 kg/m2 [facility] Index) Group BP Systolic 2021-03-10 00:00:00 111 mm[Hg] [facility] Body Weight 2021-03-10 00:00:00 3529 [oz_av] [facility] BP Diastolic 2021-01-02 00:00:00 63 mm[Hg] [facility] Height 2021-01-02 00:00:00 71 [in_i] [facility] BMI (Body Mass 2021-01-02 00:00:00 30.3 kg/m2 [facility] Index) Group BP Systolic 2021-01-02 00:00:00 112 mm[Hg] [facility] Body Weight 2021-01-02 00:00:00 3481 [oz_av] [facility] BP Diastolic 2020-07-15 00:00:00 71 mm[Hg] [facility] Height 2020-07-15 00:00:00 71 [in_i] [facility] BMI (Body Mass 2020-07-15 00:00:00 29.7 kg/m2 [facility] Index) Group BP Systolic 2020-07-15 00:00:00 117 mm[Hg] [facility] Body Weight 2020-07-15 00:00:00 213 [lb_av] [facility] BP Diastolic 2020-07-14 00:00:00 71 mm[Hg] [facility] Height 2020-07-14 00:00:00 71 [in_i] [facility] BMI (Body Mass 2020-07-14 00:00:00 29.7 kg/m2 [facility] Index) Group BP Systolic 2020-07-14 00:00:00 117 mm[Hg] [facility] Body Weight 2020-07-14 00:00:00 3411 [oz_av] [facility] Height 2020-01-30 00:00:00 71 [in_i] [facility] BMI (Body Mass 2020-01-30 00:00:00 30 kg/m2 [facility] Index) Group Body Weight 2020-01-30 00:00:00 3440 [oz_av] [facility] Systolic blood 2023-05-19 21:02:00 103 mm[Hg] [facility] pressure Diastolic blood 2023-05-19 21:02:00 74 mm[Hg] [facility] pressure Heart rate 2023-05-19 21:02:00 71 /min [facility] Oxygen saturation in 2023-05-19 21:02:00 96 /min [facility] Arterial blood by Pulse oximetry Body height 2023-05-19 18:26:00 180.3 cm [facility] Body weight 2023-05-19 18:26:00 104.327 kg [facility] BMI 2023-05-19 18:26:00 32.08 kg/m2 [facility] Respiratory rate 2023-05-19 18:25:00 16 /min [facility] Respiratory rate 2022-03-02 15:38:00 16 /min [facility] Oxygen saturation in 2022-03-02 15:38:00 97 /min [facility] Arterial blood by Pulse oximetry Systolic blood 2022-03-02 15:38:00 114 mm[Hg] [facility] pressure Diastolic blood 2022-03-02 15:38:00 67 mm[Hg] [facility] pressure Heart rate 2022-03-02 15:38:00 63 /min [facility] Body temperature 2022-03-02 15:30:00 36.33 Elle [facility] Body height 2022-03-01 15:26:00 180.3 cm [facility] Body weight 2022-03-01 15:26:00 115.123 kg [facility] BMI 2022-03-01 15:26:00 35.40 kg/m2 [facility] Procedures Procedure Date / Time Performing Clinician Source Performed CT POST MYELOGRAM LUMBAR 2023-05-19 21:20:41 [facility] IR MYELOGRAM LUMB INCL 2023-05-19 20:07:00 [facility] INJ W S&I XR LUMBAR SPINE 2 OR 3 VW 2023-04-15 15:06:26 [facility] US, scrotum 2022-11-17 00:00:00 [facility] US, duplex, penis, 2022-03-09 00:00:00 [facility] complete Group OR [place] < 1 HOUR 2022-03-02 18:31:17 Maynor Romero [facility]ital 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 2022-03-02 13:31:57 Alfreda Duvall [facility] SPINAE OH AN ELECTIVE 2022-03-02 12:35:00 Mason Douglas [facility] ENDOTRACHEAL AIRWAY LAMINECTOMY, LUMBAR 2022-03-02 12:29:00 [facility] 2022-03-02 11:43:00 Maynor Romero ospital Back Surgery 2022-03-02 00:00:00 [facility] XR CHEST 2 VW 2022-03-01 17:28:02 Maynor Romero ospital ECG PRE/POST OP 2022-03-01 16:38:21 Maynor Romero [facility] ospital HEMOGLOBIN A1C 2022-03-01 16:18:00 [facility] COVID-19 QUALITATIVE 2022-03-01 15:48:00 [facility] RT-PCR CBC WITH PLATELET AND 2022-03-01 15:48:00 [facility] PARTIAL [facility]BOPLASTIN 2022-03-01 15:48[facility]00 [facility] PROTHROMBIN TIME WITH INR 2022-03-01 15:48:00 [facility] POST MYELOGRAM LUMBAR 2022-02-25 18:14:[address] [facility] IR MYELOGRAM LUMB INCL 2022-02-25 17:55:00 [facility] INJ W S&I COVID-19 QUALITATIVE 2022-02-24 22:40:00 [facility] RT-PCR COMPREHENSIVE METABOLIC 2022-02-24 22:40:00 [facility] PANEL CBC WITH PLATELET AND 2022-02-24 22:40:00 [facility] DIFFERENTIAL TROPONIN T 2022-02-24 22:40:00 [facility] B NATRIURETIC PEPTIDE 2022-02-24 22:40:00 [facility] ESTIMATED GFR 2022-02-24 22:40:00 [facility] GENERAL 2022-02-24 22:27:[address] [facility] [address] SPINE EXTERNAL STUDY 2022-02-12 16:40:33 Maynor Romero [facility] XR ABDOMEN 2 VW AP W 2021-12-18 16:48:33 Maynor Romero [facility] UPRIGHT AND/OR DECUBITUS XR LUMBAR SPINE COMPLETE 2021-12-18 15:33:23 [facility] SPINE EXTERNAL STUDY 2021-08-10 17:26:30 Maynor Romero [facility] XR, lumbar spine 2021-03-10 00:00:00 Myla Vallejo Plan of Care Planned Activity Planned Date Details Comments Source Future Scheduled Test 2023-05-30 Pneumococcal Vaccine: [facility] 16:58:25 Pediatrics (0 to 5 Years) and At-Risk Patients (6 to 64 Years) (1 - PCV) [code = Pneumococcal Vaccine: Pediatrics (0 to 5 Years) and At-Risk Patients (6 to 64 Years) (1 - PCV)] Future Scheduled Test 2023-05-30 Hepatitis C screening [facility] 16:58:25 (procedure) [code = [id number]] Future Scheduled Test 2023-05-30 COVID-19 VACCINE ([address] [place] [address] 16:58:25 season) [code = COVID-19 VACCINE ()] Future Scheduled Test 2023-05-21 Pneumococcal Vaccine: [facility] 03:32:24 Pediatrics (0 to 5 Years) and At-Risk Patients (6 to 64 Years) (1 - PCV) [code = Pneumococcal Vaccine: Pediatrics (0 to 5 Years) and At-Risk Patients (6 to 64 Years) (1 - PCV)] Future Scheduled Test 2023-05-21 Hepatitis C screening [facility] 03:32:24 (procedure) [code = [id number]] Future Scheduled Test 2023-05-21 COVID-19 VACCINE ([address] [place] [address] 03:32:24 season) [code = COVID-19 VACCINE ()] Future Scheduled Test 2023-02-14 Pneumococcal Vaccine: [facility] 07:55:29 Pediatrics (0 to 5 Years) and At-Risk Patients (6 to 64 Years) (1 - PCV) [code = Pneumococcal Vaccine: Pediatrics (0 to 5 Years) and At-Risk Patients (6 to 64 Years) (1 - PCV)] Future Scheduled Test 2023-02-14 Hepatitis C screening [facility] 07:55:29 (procedure) [code = [id number]] Future Scheduled Test 2023-02-14 COVID-19 VACCINE ([address] [place] [address] 07:55:29 Pfizer series) [code = COVID-19 VACCINE (3 - Pfizer series)] Future Scheduled Test 2023-02-14 INFLUENZA VACCINE [facility] 07:55:29 [code = INFLUENZA VACCINE] Future Scheduled [facility] 14:16:08 (procedure) [code = [id number]] Future Scheduled Test 2022-12-27 COVID-19 VACCINE ([address] [place] [address] 14:16:08 Pfizer series) [code = COVID-19 VACCINE (3 - Pfizer series)] Future Scheduled Test 2022-12-27 INFLUENZA VACCINE [facility] 14:16:08 [code = INFLUENZA VACCINE] Future Scheduled [facility] 14:16:08 (procedure) [code = 921370340] Future Scheduled Test 2022-12-27 COVID-19 VACCINE ([address] [place] [address] 14:16:08 Pfizer series) [code = COVID-19 VACCINE (3 - Pfizer series)] Future Scheduled Test 2022-12-27 INFLUENZA VACCINE [facility] 14:16:08 [code = INFLUENZA VACCINE] Diagnostic Test [...] Group serum] Diagnostic Test 2022-11-17 [facility]c [facility] Pending 00:00:00 A1c), blood [code = Group HbA1c (hemoglobin A1c), blood] Diagnostic Test 2022-11-17 lipid panel, serum [facility] Pending 00:00:00 [code = lipid panel, Group [facility] 12:10:59 (procedure) [code = 982485311] Future Scheduled Test 2022-10-26 COVID-19 VACCINE ([address] [place] [address] 12:10:59 Booster for Pfizer series) [code = COVID-19 VACCINE (3 - Booster for Pfizer series)] Future Scheduled Test 2022-10-26 INFLUENZA VACCINE [facility] 12:10:59 [code = INFLUENZA VACCINE] Future Scheduled [...] [facility] 12:10:59 (procedure) [code = 650894632] Future Scheduled Test 2022-10-26 COVID-19 VACCINE ([address] [place] [address] 12:10:59 Booster for Pfizer series) [code = COVID-19 VACCINE (3 - Booster for Pfizer series)] Future Scheduled Test 2022-10-26 INFLUENZA VACCINE [facility] 12:10:59 [code = INFLUENZA VACCINE] Future Scheduled [...] [facility] 12:10:59 (procedure) [code = 184600943] Future Scheduled Test 2022-10-26 COVID-19 VACCINE ([address] [place] [address] 12:10:59 Booster for Pfizer series) [code = COVID-19 VACCINE (3 - Booster for Pfizer series)] Future Scheduled Test 2022-10-26 INFLUENZA VACCINE [facility] 12:10:59 [code = INFLUENZA VACCINE] Future Scheduled [...] [facility] 12:10:59 (procedure) [code = 359368490] Future Scheduled Test 2022-10-26 COVID-19 VACCINE ([address] [place] [address] 12:10:59 Booster for Pfizer series) [code = COVID-19 VACCINE (3 - Booster for Pfizer series)] Future Scheduled Test 2022-10-26 INFLUENZA VACCINE [facility] 12:10:59 [code = INFLUENZA VACCINE] Future Scheduled [...] [facility] 03:52:45 (procedure) [code = 698297060] Future Scheduled Test 2022-10-12 COVID-19 VACCINE ([address] [place] [address] 03:52:45 Booster for Pfizer series) [code = COVID-19 VACCINE (3 - Booster for Pfizer series)] Future Scheduled Test 2022-10-12 INFLUENZA VACCINE [facility] 03:52:45 [code = INFLUENZA VACCINE] Future Scheduled [...] [facility] 03:52:45 (procedure) [code = 797843934] Future Scheduled Test 2022-10-12 COVID-19 VACCINE ([address] [place] [address] 03:52:45 Booster for Pfizer series) [code = COVID-19 VACCINE (3 - Booster for Pfizer series)] Future Scheduled Test 2022-10-12 INFLUENZA VACCINE [facility] 03:52:45 [code = INFLUENZA VACCINE] Future Scheduled [...] [facility] 03:52:45 (procedure) [code = 902727578] Future Scheduled Test 2022-10-12 COVID-19 VACCINE ([address] [place] [address] 03:52:45 Booster for Pfizer series) [code = COVID-19 VACCINE (3 - Booster for Pfizer series)] Future Scheduled Test 2022-10-12 INFLUENZA VACCINE [facility] 03:52:45 [code = INFLUENZA VACCINE] Future Scheduled [...] [facility] 19:21:49 (procedure) [code = 431862237] Future Scheduled Test 2022-09-07 COVID-19 VACCINE ([address] [place] [address] 19:21:49 Booster for Pfizer series) [code = COVID-19 VACCINE (3 - Booster for Pfizer series)] Future Scheduled Test 2022-09-07 INFLUENZA VACCINE [facility] 19:21:49 [code = INFLUENZA VACCINE] Future Scheduled [...] [facility] 19:21:49 (procedure) [code = 978692568] Future Scheduled Test 2022-09-07 COVID-19 VACCINE ([address] [place] [address] 19:21:49 Booster for Pfizer series) [code = COVID-19 VACCINE (3 - Booster for Pfizer series)] Future Scheduled Test 2022-09-07 INFLUENZA VACCINE [facility] 19:21:49 [code = INFLUENZA VACCINE] Future Scheduled [...] [facility] 19:21:49 (procedure) [code = 383818466] Future Scheduled Test 2022-09-07 COVID-19 VACCINE ([address] [place] [address] 19:21:49 Booster for Pfizer series) [code = COVID-19 VACCINE (3 - Booster for Pfizer series)] Future Scheduled Test 2022-09-07 INFLUENZA VACCINE [facility] 19:21:49 [code = INFLUENZA VACCINE] Future Scheduled [...] [facility] 19:21:49 (procedure) [code = 337200608] Future Scheduled Test 2022-09-07 COVID-19 VACCINE ([address] [place] [address] 19:21:49 Booster for Pfizer series) [code = COVID-19 VACCINE (3 - Booster for Pfizer series)] Future Scheduled Test 2022-09-07 INFLUENZA VACCINE [facility] 19:21:49 [code = INFLUENZA VACCINE] Future Scheduled [...] [facility] 18:09:46 (procedure) [code = [id number]] Future Scheduled Test 2022-06-26 COVID-19 VACCINE ([address] [place] [address] 18:09:46 Booster for Pfizer series) [code = COVID-19 VACCINE (3 - Booster for Pfizer series)] Future Scheduled Test 2022-06-26 INFLUENZA VACCINE [facility] 18:09:46 [code = INFLUENZA VACCINE] Future Scheduled [...] [facility] 18:09:46 (procedure) [code = 060431656] Future Scheduled Test 2022-06-26 COVID-19 VACCINE ([address] [place] [address] 18:09:46 Booster for Pfizer series) [code = COVID-19 VACCINE (3 - Booster for Pfizer series)] Future Scheduled Test 2022-06-26 INFLUENZA VACCINE [facility] 18:09:46 [code = INFLUENZA VACCINE] Future Scheduled [...] [facility] 09:23:23 (procedure) [code = 318715984] Future Scheduled Test 2022-05-20 COVID-19 VACCINE ([address] [place] [address] 09:23:23 Booster for Pfizer series) [code = COVID-19 VACCINE (3 - Booster for Pfizer series)] Future Scheduled Test 2022-05-20 INFLUENZA VACCINE [facility] 09:23:23 [code = INFLUENZA VACCINE] Future Scheduled [...] [facility] 09:23:23 (procedure) [code = 135758094] Future Scheduled Test 2022-05-20 COVID-19 VACCINE ([address] [place] [address] 09:23:23 Booster for Pfizer series) [code = COVID-19 VACCINE (3 - Booster for Pfizer series)] Future Scheduled Test 2022-05-20 INFLUENZA VACCINE [facility] 09:23:23 [code = INFLUENZA VACCINE] Future Scheduled [...] [facility] 09:23:23 (procedure) [code = 433272182] Future Scheduled Test 2022-05-20 COVID-19 VACCINE ([address] [place] [address] 09:23:23 Booster for Pfizer series) [code = COVID-19 VACCINE (3 - Booster for Pfizer series)] Future Scheduled Test 2022-05-20 INFLUENZA VACCINE [facility] 09:23:23 [code = INFLUENZA VACCINE] Future Scheduled [...] [facility] 09:23:23 (procedure) [code = 728574843] Future Scheduled Test 2022-05-20 COVID-19 VACCINE ([address] [place] [address] 09:23:23 Booster for Pfizer series) [code = COVID-19 VACCINE (3 - Booster for Pfizer series)] Future Scheduled Test 2022-05-20 INFLUENZA VACCINE [facility] 09:23:23 [code = INFLUENZA VACCINE] Future Scheduled [...] [facility] 09:23:23 (procedure) [code = 230988064] Future Scheduled Test 2022-05-20 COVID-19 VACCINE ([address] [place] [address] 09:23:23 Booster for Pfizer series) [code = COVID-19 VACCINE (3 - Booster for Pfizer series)] Future Scheduled Test 2022-05-20 INFLUENZA VACCINE [facility] 09:23:23 [code = INFLUENZA VACCINE] Future Scheduled [...] [facility] 09:23:23 (procedure) [code = 165624591] Future Scheduled Test 2022-05-20 COVID-19 VACCINE ([address] [place] [address] 09:23:23 Booster for Pfizer series) [code = COVID-19 VACCINE (3 - Booster for Pfizer series)] Future Scheduled Test 2022-05-20 INFLUENZA VACCINE [facility] 09:23:23 [code = INFLUENZA VACCINE] Future Scheduled [...] [facility] 07:01:06 (procedure) [code = 602869867] Future Scheduled Test 2022-05-11 COVID-19 VACCINE ([address] [place] [address] 07:01:06 Booster for Pfizer series) [code = COVID-19 VACCINE (3 - Booster for Pfizer series)] Future Scheduled Test 2022-05-11 INFLUENZA VACCINE [facility] 07:01:06 [code = INFLUENZA VACCINE] Future Scheduled [...] [facility] 07:01:06 (procedure) [code = 889947221] Future Scheduled Test 2022-05-11 COVID-19 VACCINE ([address] [place] [address] 07:01:06 Booster for Pfizer series) [code = COVID-19 VACCINE (3 - Booster for Pfizer series)] Future Scheduled Test 2022-05-11 INFLUENZA VACCINE [facility] 07:01:06 [code = INFLUENZA VACCINE] Future Scheduled [...] [facility] 15:05:55 (procedure) [code = 064911591] Future Scheduled Test 2022-04-23 COVID-19 VACCINE ([address] [place] [address] 15:05:55 Booster for Pfizer series) [code = COVID-19 VACCINE (3 - Booster for Pfizer series)] Future Scheduled Test 2022-04-23 INFLUENZA VACCINE [facility] 15:05:55 [code = INFLUENZA VACCINE] Future Scheduled [...] [facility] 14:05:17 (procedure) [code = 742076257] Future Scheduled Test 2022-03-19 COVID-19 VACCINE ([address] [place] [address] 14:05:17 Booster for Pfizer series) [code = COVID-19 VACCINE (3 - Booster for Pfizer series)] Future Scheduled Test 2022-03-19 INFLUENZA VACCINE [facility] 14:05:17 [code = INFLUENZA VACCINE] Future Scheduled [...] [facility] 14:05:17 (procedure) [code = 422872561] Future Scheduled Test 2022-03-19 COVID-19 VACCINE ([address] [place] [address] 14:05:17 Booster for Pfizer series) [code = COVID-19 VACCINE (3 - Booster for Pfizer series)] Future Scheduled Test 2022-03-19 INFLUENZA VACCINE [facility] 14:05:17 [code = INFLUENZA VACCINE] Future Scheduled [...] [facility] 19:05:17 (procedure) [code = 863683334] Future Scheduled Test 2022-03-06 COVID-19 VACCINE ([address] [place] [address] 19:05:17 Booster for Pfizer series) [code = COVID-19 VACCINE (3 - Booster for Pfizer series)] Future Scheduled Test 2022-03-06 INFLUENZA VACCINE [facility] 19:05:17 [code = INFLUENZA VACCINE] Future Scheduled [...] [facility] 19:05:17 (procedure) [code = [id number]] Future Scheduled Test 2022-03-06 COVID-19 VACCINE ([address] [place] [address] 19:05:17 Booster for Pfizer series) [code = COVID-19 VACCINE (3 - Booster for Pfizer series)] Future Scheduled Test 2022-03-06 INFLUENZA VACCINE [facility] 19:05:17 [code = INFLUENZA VACCINE] Future Scheduled [facility] 19:05:17 (procedure) [code = 763963732] Future Scheduled Test 2022-03-06 COVID-19 VACCINE ([address] [place] [address] 19:05:17 Booster for Pfizer series) [code = COVID-19 VACCINE (3 - Booster for Pfizer series)] Future Scheduled Test 2022-03-06 INFLUENZA VACCINE [facility] 19:05:17 [code = INFLUENZA VACCINE] Future Scheduled [...] [facility] 19:05:17 (procedure) [code = 124688000] Future Scheduled Test 2022-03-06 COVID-19 VACCINE ([address] [place] [address] 19:05:17 Booster for Pfizer series) [code = COVID-19 VACCINE (3 - Booster for Pfizer series)] Future Scheduled Test 2022-03-06 INFLUENZA VACCINE [facility] 19:05:17 [code = INFLUENZA VACCINE] Future Appointment 2023-11-15 Matty Carter [facility] 00:00:00 Janet YoungCorwin , [place] Group [id number] Instructions [facility] Encounters Start End Encounter Admission Attending Care Care Encounter Source Date/Time Date/Time Type Type Clinicians Facility Department ID 2023-05-20 Inpatient TEXANA TEXANA [id number] [place] 15:00:44 [id number] [place] 2023-03-10 Inpatient TEXANA TEXANA [id number] [place] 23:11:08 [id number] [place] 2022-08-26 [facility] [id number] 10:40:02 Ronnell [id number] [facility] 2022-08-09 Inpatient TEXANA TEXANA [id number] [place] 16:07:58 [id number] [place] 2022-06-18 Inpatient YASMEEN KHANNA [facility] [id number] [place] 08:00:00 [id number] [facility] 2022-06-11 Inpatient YASMEEN KHANNA [facility] [id number] [place] 08:00:00 [id number] [facility] 2022-06-08 Inpatient TEXANA TEXANA [id number] [place] 11:16:57 [id number] [place] 2022-05-31 Inpatient TEXANA TEXANA [id number] [place] 12:03:[id number] [place] [address] 2022-05-[address] [facility] [id number] 09:43:04 Ronnell [id number] [facility] 2022-05-03 Inpatient YASMEEN ROMERO [facility] [id number] [place] 09:00:00 [id number] [facility] 2022-03-23 Inpatient TEXANA TEXANA [id number] [place] 11:21:45 [id number] [place] 2023-05-20 2023-05-20 Telephone Misael 1.2.840.1 [id number] [facility] 00:00:00 00:00:[id number] 3.430.2.7 Hospit a .3.709647 l .8 2023-05-20 2023-05-20 [facility], 1.2.840.1 [id number] [facility] 00:00:00 00:00:[id number] 3.430.2.7 Hospit a .3.484931 l .8 2023-05-19 2023-05-19 [facility], 1.2.840.1 [id number] Methodi 11:53:47 23:59:00 Encounter Maynor LynchJuan José [id number] 3.430.2.7 Hospit a .3.789275 l .8 2023-05-19 2023-05-19 [facility], 1.2.840.1 [id number] Methodi 11:53:47 23:59:00 Encounter Maynor CrisJuan José [id number] 3.430.2.7 Hospit a .3.865679 l .8 2023-05-19 2023-05-19 Hospital Asked, No Pcp 1.2.840.1 [id number] [facility]i 11:53:35 23:59:00 Encounter David Romerorey CrisJuan José [id number] 3.430.2.7 Hospit a .3.107424 l .8 2023-05-19 2023-05-19 Hospital Asked, No Pcp 1.2.840.1 [id number] [facility]i 11:53:35 23:59:00 Encounter David Romeroruperto Sánchez [id number] 3.430.2.7 Hospit a .3.402839 l .8 2023-05-17 2023-05-17 Ronnell DOBSON [place] - [id number] [facility] 00:00:00 00:00:00 Micky Lozano, Medical Medical MD: [id number] [place]F [phone] tono , Ph. Practice 2023-05-16 2023-05-16 Outpatient Zuniga_F [facility] [id number] [place] 00:00:00 00:00:00 [facility]6 [facility] 2023-05-16 2023-05-16 Outpatient Zuniga_F [facility] [id number] [place] 00:00:00 00:00:00 1107 Medical Group 2023-05-12 2023-05-12 [facility], 1.2.840.1 [id number] Methodi 11:10:16 23:59:00 Encounter Maynor Sánchez [id number] 3.430.2.7 Hospit a .3.421698 l .8 2023-05-12 2023-05-12 [facility] 1.2.840.1 [id number] Methodi 11:10:16 23:59:00 Encounter Maynor Sánchez [id number] 3.430.2.7 Hospit a .3.024654 l .8 2023-05-12 2023-05-12 Orders Dejah, 1.2.840.1 [id number] [facility]i 00:00:00 00:00:00 Only Rich 75356.1.[address] 3.430.2.7 Hospit a .3.494737 l .8 2023-05-12 2023-05-12 Orders Dejah, 1.2.840.1 [id number] [facility] 00:00:00 00:00:00 Only Rich [address]164.1.[address] 3.430.2.7 Hospit a .3.935887 l .8 2023-04-15 2023-04-15 Office Dejah, 1.2.840.1 [id number] [facility] 10:00:00 11:02:26 Visit Rich [address]8894.1.[address] 3.430.2.7 Hospit a .3.271036 l .8 2023-04-15 2023-04-15 Office Dejah, 1.2.840.1 [id number] [facility] 10:00:00 11:02:26 Visit Rich 08230.1.[address] 3.430.2.7 Hospit a .3.159739 l .8 2023-04-15 2023-04-15 Outpatient [facility] [id number] [place] 00:00:00 00:00:[address] 2022-12-21 2023-01-07 Outpatient YASMEEN POND, [facility] [id number] [place] 15:14:00 00:01:00 RICH -[id number] [facility] 2022-12-03 2022-12-03 Inpatient YASMEEN POND, [facility] [id number] [place] 14:00:00 08:18:00 RICH -[id number] [facility] 2022-11-25 2022-11-25 Outpatient Hawkins_M [facility] [id number] [place] 00:00:00 00:00:00 0518 [facility] 2022-11-25 2022-11-25 Outpatient Hawkins_M [facility] [id number] [place] 00:00:00 00:00:00 1030 [facility] 2022-11-25 2022-11-25 Susan [facility] [place] - [id number] M at[place]or 00:00:00 00:00:00 Alma Martinez 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 2022-11-25 2022-11-[address] [facility] [id number] Co mmon 00:00:00 00:00:00 VISIT Spirit ESTAB PT - CHI LEVEL 4 [facility] 2022-11-19 2022-11-19 Outpatient ZAFAR Diaz, [facility] [id number] [place] 08:55:00 08:55:00 Ronnell -[id number] [facility] 2022-11-17 2022-11-17 Ronnell [facility] [place] - [id number] [place] 00:00:00 00:00:00 Micky Lozano Medical Medical MD: 600 [facility] [place] [address], [place] [address] , Ph. 2022-10-19 2022-10-19 Emergency ER JOEL, [facility] [id number] [facility] 03:22:00 05:40:00 BRENDA -[id number] [facility] 2022-09-30 2022-09-[address] [facility] ST[facility] [id number] Co mmon 00:00:00 00:00:00 VISIT [facility] - CHI LEVEL 4 [facility] 2022-09-07 2022-09-07 Telephone Duc, 1.2.840.1 [id number] 2099 [id number] Methodi 00:00:00 00:00:[address] 3.430.2.7 Hospit a .3.380835 l .8 2022-09-07 2022-09-07 Telephone Duc, 1.2.840.1 [id number] 2099 [id number] Methodi 00:00:00 00:00:[address] 3.430.2.7 Hospit a .3.998935 l .8 2022-08-26 2022-08-26 (TEL) STLMLC STLMLC [id number] Co mmon 00:00:00 00:00:00 Spirit - CHI [facility] 2022-07-26 2022-08-06 Office Maynor Romero 1.2.840.1 [id number] Methodi 10:00:00 16:53:40 [place] [address]21.1.[address] 3.430.2.7 Hospit a .3.944968 l .8 2022-07-26 2022-08-06 Maynor Pierson 1.2.840.1 [id number] 01 [id number] Methodi 10:00:00 16:53:40 Visit [place] [address]73.1.[address] 3.430.2.7 Hospit a .3.637608 l .8 2022-07-29 2022-07-29 Outpatient YASMEEN KHANNA, [facility] [id number] [place] 09:54:00 09:54:00 NAHUN -[id number] [facility] 2022-07-26 2022-07-26 Travel 1.2.840.1 1.2.479.405 9357 [id number] Methodi 00:00:00 00:00:[address] 3.430.2.7 0.2.7.3.698 Ho spita .3.240738 084.8 l .8 2022-07-26 2022-07-26 Travel 1.2.840.1 1.2.211.471 0249 [id number] Methodi 00:00:00 00:00:[address] 3.430.2.7 0.2.7.3.698 Ho spita .3.225144 084.8 l .8 2022-06-14 2022-07-10 Outpatient YASMEEN ROMERO, [facility] [id number] [place] 07:00:00 00:01:00 MAYNOR -[id number] [facility] 2022-07-05 2022-07-05 Emergency ER Valmy, [facility] [id number] [place] 23:45:00 23:58:00 Neymar -[id number] [facility] 2022-06-25 2022-06-25 Outpatient YASMEEN Diaz, [facility] [id number] [place] 10:55:00 10:55:00 Ronnell -[id number] [facility] 2022-06-25 2022-06-25 Outpatient Zuniga_F [facility] [id number]- 2021 [place] 00:00:00 00:00:00 1216 Medical [facility] 2022-06-25 2022-06-25 [facility] [id number]- 2022 [place] 00:00:00 00:00:00 0509 [facility] 2022-06-25 2022-06-25 Outpatient Zuniga_F MMG [facility] [id number]- 2022 [place] 00:00:00 00:00:00 0510 [facility] 2022-06-25 2022-06-25 Outpatient Zuniga_F MMG [facility] [id number]- 2022 [place] 00:00:00 00:00:00 0513 [facility] 2022-06-25 2022-06-25 Radha SAVAGE [place] - [id number] [place] 00:00:00 00:00:00 Discovery perry Diaz 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 2022-06-24 2022-06-24 Orders Javaheri, 1.2.840.1 [id number] 2099 [id number] Methodi 00:00:00 00:00:00 Only Rich 61605.1.[address] 3.430.2.7 Hospit a .3.473097 l .8 2022-06-24 2022-06-24 Orders Javaheri, 1.2.840.1 [id number] 2099 [id number] Methodi 00:00:00 00:00:00 Only Rich 53628.1.[address] 3.430.2.7 Hospit a .3.923628 l .8 2022-06-21 2022-06-21 [facility] [id number]- 2021 [place] 00:00:00 00:00:00 1212 [facility] 2022-06-21 2022-06-21 Ronnell [facility] [place] - [id number] [place] 00:00:00 00:00:00 Aracelis Klein MD: [address] [place] [address] , Ph. 2022-06-09 2022-06-16 Inpatient ER Orlando [facility] MED [id number] [place] 08:05:00 15:40:00 Ronnell [id number] [facility] 2022-06-02 2022-06-09 Outpatient YASMEEN ROMERO [facility] [id number] [place] 11:00:00 00:01:00 MAYNOR -[id number] [facility] 2022-06-07 2022-06-07 Inpatient ER ORLANDO, [facility] [id number] [place] 17:16:00 14:35:00 RONNELL -[id number] [facility] 2022-06-05 2022-06-05 [facility] [id number] [place] 15:31:00 15:45:00 JASON -[id number] [facility] 2022-05-26 2022-05-26 Outpatient YASMEEN ROMERO [facility] [id number] [place] 11:00:00 11:00:00 MAYNOR -[id number] [facility] 2022-05-24 2022-05-24 Outpatient YASMEEN ROMERO [facility] [id number] [place] 11:00:00 11:00:00 MAYNOR -[id number] [facility] 2022-05-21 2022-05-21 Outpatient YASMEEN ROMERO [facility] [id number] [place] 11:00:00 11:00:00 MAYNOR -[id number] [facility] 2022-05-20 2022-05-20 Outpatient YASMEEN KHANNA, [facility] [id number] [place] 08:01:00 08:01:00 NAHUN -[id number] [facility] 2022-05-19 2022-05-[address] [facility] [id number] Co mmon 00:00:00 00:00:00 VISIT [facility] PT LEVEL 3 - CHI [facility] 2022-05-19 2022-05-19 Orders Dejah, 1.2.840.1 [id number] 2100 [id number] Methodi 00:00:00 00:00:00 Only Rich 81891.1.[address] 3.430.2.7 Hospit a .3.154578 l .8 2022-05-18 2022-05-18 Emergency ER JOEL, [facility] D000 [id number] [place] 19:04:00 21:55:00 BRENDA -[id number] [facility] 2022-04-30 2022-04-30 Emergency ER GUME, [facility] [id number] [place] 14:49:00 15:34:00 JASON -[id number] [facility] 2022-04-25 2022-04-25 Emergency ER Beatrice, [facility] [id number] [place] 14:10:00 14:43:00 Neymar -[id number] [facility] 2022-04-21 2022-04-21 Emergency ER JACLYN, [facility] [id number] [place] 08:47:00 10:02:00 SHI -[id number] [facility] 2022-04-19 2022-04-19 Office [place], 1.2.840.1 [id number] 8582 Methodi 10:20:00 11:30:20 Visit Maynor Sánchez 74953.1.1 837 s t 3.430.2.7 Hospit a .3.222053 l .8 2022-04-19 2022-04-19 Travel 1.2.840.1 1.2.959.678 7461 227673 Methodi 00:00:00 00:00:[address] 3.430.2.7 0.2.7.3.698 Ho spita .3.855198 084.8 l .8 2022-04-16 2022-04-16 Emergency ER Beatrice, [facility] [id number] [place] 08:42:00 11:50:00 Neymar -[id number] [facility] 2022-04-14 2022-04-14 Emergency ER JACLYN, [facility] [id number] [place] 07:08:00 08:22:00 SHI -[id number] [facility] 2022-04-05 2022-04-05 Emergency ER Melissa, [facility] [id number] [place] 12:23:00 14:08:00 Alexa -[id number] [facility] 2022-04-01 2022-04-01 [facility]patient [facility] [id number] [place] 00:00:00 00:00:00 0922 Medical [facility] 2022-04-01 2022-04-01 Orders Dejah, 1.2.840.1 [id number] 2099 [id number] Methodi 00:00:00 00:00:00 Only Rich 78052.1.[address] 3.430.2.7 Hospit a .3.907910 l .8 2022-03-31 2022-03-31 Emergency ER ANAYA, [facility] [id number] [place] 13:34:00 16:08:00 PHILLLAVONRODOLFO -[id number] [facility] 2022-03-21 2022-03-21 Emergency ER GUME, [facility] [id number] [place] 09:47:00 14:33:00 JASON -[id number] [facility] 2022-03-19 2022-03-19 Office Mariferi, 1.2.840.1 [id number] 2100 [id number] Methodi 14:20:00 14:33:59 Visit Rich 77494.1.[address] 3.430.2.7 Hospit a .3.473295 l .8 2022-03-19 2022-03-19 Travel 1.2.840.1 1.2.790.063 8727 160025 Methodi 00:00:00 00:00:[address] 3.430.2.7 0.2.7.3.698 Ho spita .3.202432 084.8 l .8 2022-03-11 2022-03-11 Emergency ER RAAD, [facility] [id number] [place] 09:45:00 13:28:00 JULIUS -[id number] [facility] 2022-03-09 2022-03-09 Outpatient Gloria MMG [facility] [id number] [place] 00:00:00 00:00:00 0830 [facility] 2022-03-09 2022-03-09 Kia [facility] [place] - [id number] M [place] 00:00:00 00:00:00 Discovery perry Simpson PACamdenC: 600 [facility] [place] [address], [facility] [place] [address] , Ph. 2022-03-07 2022-03-07 Emergency ER JACLYN, [facility] [id number] [place] 12:01:00 13:53:00 SHI -[id number] [facility] 2022-03-03 2022-03-03 Telephone Apolinar 1.2.840.1 [id number] 2100 [id number] Methodi 00:00:00 00:00:[address] 3.430.2.7 Hospit a .3.024714 l .8 2022-03-02 2022-03-02 Hospital [place], 1.2.840.1 [id number] 93383 10849 Methodi 05:56:00 11:56:00 Encounter Maynor Sánchez 30106.1.[address] 3.430.2.7 Hospit a .3.017390 l .8 2022-03-02 2022-03-02 Anesthesia Alfreda Duvall 1.2.840.1 10 [id number] Methodi 07:29:00 09:55:00 Event Anna Adair 66312.1.[address] 3.430.2.7 Hospit a .3.970104 l .8 2022-03-02 2022-03-02 Surgery [place], 1.2.840.1 [id number] 3525 Methodi 07:30:00 09:50:00 Maynor Sánchez 41207.1.1 735 s t 3.430.2.7 Hospit a .3.240525 l .8 2022-03-02 2022-03-02 Telephone Dejah 1.2.840.1 [id number] 21 [id number] Methodi 00:00:00 00:00:[address] 3.430.2.7 Hospit a .3.788435 l .8 2022-03-01 2022-03-01 [facility], 1.2.840.1 [id number] 05659 65516 Methodi 12:18:26 23:59:00 Encounter Maynor Sánchez 95326.1.[address] 3.430.2.7 Hospit a .3.337418 l .8 2022-03-01 2022-03-01 Pre-Admiss [place], 1.2.840.1 [id number] Methodi 09:30:00 10:30:00 doris Sánchez 16085.1.1 034 s t Testing 3.430.2.7 Hospit a .3.728078 l .8 2022-03-01 2022-03-01 Telephone [place], 1.2.840.1 [id number] Methodi 00:00:00 00:00:00 Mica[address].1.[address] 3.430.2.7 Hospit a .3.719540 l .8 2022-03-01 2022-03-01 Travel 1.2.840.1 1.2.505.500 2480 259450 Methodi 00:00:00 00:00:[address] 3.430.2.7 0.2.7.3.698 Ho spita .3.544075 084.8 l .8 2022-02-26 2022-02-26 [facility], 1.2.840.1 [id number] 2099685 Methodi 00:00:00 00:00:00 Maynor Sánchez 60276.1.1 279 s t 3.430.2.7 Hospit a .3.896185 l .8 2022-02-26 2022-02-26 Travel 1.2.840.1 1.2.369.541 3233 742344 Methodi 00:00:00 00:00:[address] 3.430.2.7 0.2.7.3.698 Ho spita .3.753367 084.8 l .8 2022-02-24 2022-02-25 Emergency [facility] [place] 1.2.840.1 1041 92064 [id number] Methodi 15:25:00 19:45:00 Basilio Dialloramiro 02130.1.[address] 3.430.2.7 Hospit a .3.464895 l .8 2022-02-25 2022-02-25 Transcribe Nick, 1.2.840.1 [id number] 774 7354425 Methodi 00:00:00 00:00:00 Orders Maynor Sánchez 02662.1.1 241 s t 3.430.2.7 Hospit a .3.899640 l .8 2022-02-25 2022-02-25 Orders Dejah, 1.2.840.1 [id number] 2100 139949 Methodi 00:00:00 00:00:00 Only Rich 83943.1.[address] 3.430.2.7 Hospit a .3.720792 l .8 2022-02-24 2022-02-24 [facility], 1.2.840.1 [id number] 53392 Methodi 18:39:58 23:59:00 Encounter Maynor Sánchez 80094.1.[address] 3.430.2.7 Hospit a .3.616708 l .8 2022-02-24 2022-02-24 [facility], 1.2.840.1 [id number] 63569 Methodi 18:39:26 23:59:00 Encounter Maynor Sánchez [address]259.1.[address] 3.430.2.7 Hospit a .3.813689 l .8 2022-02-24 2022-02-24 [facility], 1.2.840.1 [id number] [id number] 3940 Methodi 00:00:00 00:00:00 Only Maynor Sánchez 65946.1.1 790 s t 3.430.2.7 Hospit a .3.000042 l .8 2022-02-242022-02-24 Travel 1.2.840.1 1.2.363.055 7327 955342 Methodi 00:00:00 00:00:[address] 3.430.2.7 0.2.7.3.698 Ho spita .3.258718 084.8 l .8 2022-02-12 2022-02-12 Emergency ER MOJGANPHANISHELLEY, [facility] [id number] [place] 08:42:00 13:17:00 JASON -[id number] [facility] 2022-01-26 2022-01-26 Outpatient SANDIE_HERNÁN ANTON[facility] 909 [place] 12:18:00 12:18:00 _DOREEN 0719 [facility] 2022-01-17 2022-01-17 Emergency ER Melissa, [facility] [id number] [place] 18:06:00 21:18:00 Alexa -[id number] [facility] 2021-12-18 2021-12-18 Office Nick, 1.2.840.1 [id number] 0558 Methodi 10:20:00 11:32:26 Visit Maynor Sánchez 07517.1.1 071 s t 3.430.2.7 Hospit a .3.331200 l .8 2021-12-18 2021-12-18 Outpatient [facility] [id number] [place] 00:00:00 00:00:00 MAYNOR Daniels Method i st 2021-12-18 2021-12-18 Travel 1.2.840.1 1.2.487.363 6589 847997 Methodi 00:00:00 00:00:[address] 3.430.2.7 0.2.7.3.698 Ho spita .3.418211 084.8 l .8 2021-12-18 2021-12-18 Outpatient [facility] [id number] Baker 00:00:00 00:00:00 MAYNOR Armenta Method i st 2021-11-30 2021-11-30 Emergency ER RICO, [facility] [id number] [place] 01:26:00 04:02:00 HARRISON -[id number] [facility] 2021-11-06 2021-11-06 [place] [id number] -2021 [place] 12:33:00 12:33:00 0502 Medical Group 2021-11-06 2021-11-06 [place] [id number] [place] 00:00:00 00:00:00 0429 Medical Group 2021-11-06 2021-11-06 Susan MM [place] - [id number] M atagor 00:00:00 00:00:00 Aracelis Hunter 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 2021-11-05 2021-11-05 [place] [id number] [place] 04:51:00 04:51:00 0428 [facility] 2021-09-14 2021-09-14 [place] [id number] [place] 12:39:00 12:39:00 0307 Medical [facility] 2021-09-14 2021-09-14 Kia [facility] [place] - [id number] M atagor 00:00:00 00:00:00 Discovery perry Simpson PA-C: [facility] Medical Medica [address] [address] , Ph. 2021-09-14 2021-09-14 Travel 1.2.840.1 1.2.822.130 2947 [id number] Methodi 00:00:00 00:00:[address] 3.430.2.7 0.2.7.3.698 Ho spita .3.567095 084.8 l .8 2021-08-10 2021-08-10 [place] [id number] [place] 11:36:00 11:36:00 0131 Medical [facility] 2021-08-10 2021-08-10 Outpatient Bebetoudela_A MMG MMG [id number] -2021 [place] 11:36:00 11:36:00 0211 [facility] 2021-08-10 2021-08-10 Outpatient YASMEEN SIMPSON, [facility] [id number] [place] 11:05:00 11:05:00 KIA -[id number] [facility] 2021-06-24 2021-06-24 Inpatient ER Nawaf, [facility] MED [id number] [place] 00:24:00 13:53:00 Abraham -[id number] [facility] 2021-05-04 2021-05-04 Outpatient Zuniga_F MMG [facility] [id number]- 2020 [place] 10:22:00 10:22:00 1220 [facility] 2021-04-28 2021-04-29 [facility] [id number] [place] 18:03:00 01:22:00 BARBARA -[id number] [facility] 2021-03-26 2021-03-26 Outpatient Zuniga_F MMG [facility] [id number]- 2020 [place] 10:53:00 10:53:00 0916 [facility] 2021-03-26 2021-03-26 Outpatient YASMEEN Diaz, [facility] [id number] [place] 08:44:00 08:44:00 Ronnell -[id number] [facility] 2021-03-26 2021-03-26 Ronnell MMG [place] - [id number] [place] 00:00:00 00:00:00 Aracelis Klein Medical MD: [address] [place] [address] [address] [address] , Ph. 2021-03-10 2021-03-10 Outpatient Zuniga_F MMG [facility] [id number]- 2020 [place] 04:23:00 04:23:00 0831 [facility] 2021-03-10 2021-03-10 Ronnell MM [place] - [id number] [place] 00:00:00 00:00:00 Aracelis Klein MD: [address] [address] , Ph. 2021-02-19 2021-02-19 Emergency ER CELSA MUNGUIA [facility] [id number] [place] 09:17:00 18:11:00 -[id number] [facility] 2021-02-18 2021-02-18 Outpatient Zuniga_F MMG [facility] [id number]- 2020 [place] 10:58:00 10:58:00 0811 [facility] 2021-02-13 2021-02-13 [place] [id number]- 2020 [place] 11:36:00 11:36:00 0806 [facility] 2021-02-11 2021-02-11 Outpatient Zuniga_S MMG [facility] [id number]- 2020 [place] 04:11:00 04:11:00 0804 [facility] 2021-01-18 2021-01-18 Emergency ER CHINO, [facility] [id number] [place] 07:23:00 15:33:00 VALE -[id number] [facility] 2021-01-02 2021-01-02 Outpatient Zuniga_S MMG [facility] [id number]- 2020 [place] 11:03:00 11:03:00 0625 [facility] 2021-01-02 2021-01-02 Outpatient Zuniga_S MMG MM [id number]- 2020 [place] 11:03:00 11:03:00 0626 da [facility] 2021-01-02 2021-01-02 Radha [facility] [place] - [id number] [place] 00:00:00 00:00:00 Discovery perry Diaz 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 2020-07-15 2020-07-15 Outpatient Zuniga_F MMG MMG [id number]- 2020 [place] 12:50:00 12:50:00 0105 [facility] 2020-07-15 2020-07-15 Outpatient Zuniga_F MMG MMG [id number]- 2020 [place] 12:50:00 12:50:00 0111 [facility] 2020-07-15 2020-07-15 Tyson MM [place] - [id number] M atagor 00:00:00 00:00:00 Discovery perry Munoz MD: [address] [place] [address] - [facility] [address], [place] [address] , Ph. 2020-07-14 2020-07-14 Outpatient Zuniga_F MMG MMG [id number]- 2020 [place] 04:30:00 04:30:00 0104 Medical Group 2020-07-14 2020-07-14 Ronnell [facility]G [place] - [id number] [place] 00:00:00 00:00:00 Aracelis Klein Medical MD: [address] [place] [address] - [facility] [address], [place] [address] , Ph. 2020-07-10 2020-07-10 Outpatient Zuniga_F MMG MMG [id number] [place] 10:29:00 10:29:00 1231 Medical Group 2020-07-07 2020-07-08 Emergency ER CHINO [facility] [id number] [place] 23:32:00 12:45:00 PRISCILA [id number] [facility] 2020-02-26 2020-02-26 Outpatient Zuniga_F MMG MMG [id number] [place] 12:39:00 12:39:00 1229 Medical Group 2020-02-26 2020-02-26 Outpatient Zuniga_F MMG MMG [id number] [place] 12:39:00 12:39:00 1230 Medical Group 2020-01-30 2020-01-30 Outpatient Zuniga_F MMG MMG [id number] [place] 08:08:00 08:08:00 0722 Medical Group 2020-01-30 2020-01-30 Ronnell [facility] [place] - [id number] [place] 00:00:00 00:00:00 Micky Lozano, Medical Medical MD: [address] [facility] [address], [place] [address] , Ph. 2020-01-29 2020-01-29 Outpatient Raju_P MMG [facility] [id number] [place] 04:40:00 04:40:00 0721 Medical [facility] 2019-11-06 2019-11-06 Outpatient Raju_P MMG MMG [id number] [place] 03:29:00 03:29:00 0428 [facility] 2019-11-06 2019-11-06 Outpatient Raju_P MMG [facility] [id number] [place] 03:29:00 03:29:00 0429 [facility] 2019-03-02 2019-03-02 Outpatient YASMEEN SILVA, [facility] [id number] [place] 11:02:00 11:02:00 KENNETH -[id number] [facility] 2019-02-13 2019-02-13 Emergency ER CHINO, [facility] [id number] [place] 17:16:00 18:34:00 PRISCILA -[id number] [facility] 2018-02-07 2018-02-07 Outpatient YASMEEN LUU [facility] [id number] [place] 09:47:00 09:47:00 SUNNY Llanes -[id number] [facility] 2017-10-12 2017-10-12 Emergency ER OWO, TOKS [facility] [id number] [place] 17:50:00 19:49:00 -[id number] [facility] 2017-06-01 2017-06-01 Emergency ER OWO, TOKS [facility] [id number] [place] 04:32:00 06:26:00 -[id number] [facility] 2017-02-24 2017-02-24 Outpatient YASMEEN ASCENCIO [facility] [id number] [place] 08:41:00 08:41:00 BYMARIA G -[id number] [facility] 2017-01-13 2017-01-13 Emergency ER UGORJI, [facility] [id number] [place] 00:20:00 03:56:00 CLEMENT -[id number] [facility] 2016-09-02 2016-09-02 Emergency ER UGORJI, [facility] [id number] [place] 13:20:00 14:30:00 CLEMENT -[id number] [facility] 2016-04-28 2016-04-29 Emergency ER OWO, TOKS [facility] [id number] [place] 22:59:00 01:22:00 -[id number] [facility] 2015-09-28 2015-09-29 Emergency ER SAEMI, [facility] [id number] [place] 21:04:00 08:15:00 NUNO -[id number] [facility] 2015-05-05 2015-05-05 Emergency ER UGORJI, [facility] [id number] [place] 19:34:00 21:26:00 CLEMENT -[id number] [facility] 2014-11-07 2014-11-08 Emergency ER OWO, TOKS [facility] [id number] [place] 23:26:00 04:30:00 -[id number] [facility] 2014-08-01 2014-08-01 Outpatient EL VALLOPPILLI [facility] [id number] [place] 12:03:00 12:03:00 L, AMMINI -[id number] [facility] 2011-12-29 2011-12-29 Emergency ER OTINWA, [facility] [id number] [place] 19:51:00 22:10:00 PARKER -[id number] [facility] 2011-11-12 2011-11-12 Outpatient EL VALLOPPILLI [facility] D00 [id number] [place] 07:58:00 07:58:00 L, AMMINI -[id number] [facility] 2011-10-10 2011-10-11 Emergency ER THAKKAR, [facility] [id number] [place] 22:24:00 01:45:00 WASIM -[id number] [facility] 2011-10-06 2011-10-06 Emergency ER JOHNNY, [facility] [id number] [place] 00:27:00 06:30:00 CLEMENT -[id number] [facility] 2011-09-08 2011-09-08 Outpatient EL VALLOPPILLI [facility] [id number] [place] 11:57:00 11:57:00 L, AMMINI -[id number] [facility] 2010-06-16 2010-06-17 Emergency ER LARISSA, [facility] [id number] [place] 18:00:00 04:05:00 ZBIGNIEW -[id number] d pancho [facility] 2010-03-24 2010-03-24 Outpatient EL VALLOPPILLI [facility] D00 [id number] [place] 14:21:00 14:21:00 L, AMMINI -[id number] [facility] Results Test Description Test Time Test Comments Results Result [facility] e Comments IR Myelogram Lumb 2023-05-11 EXAMINATION: IR Me thodist Incl Inj W S&I 0 MYELOGRAM LUMB INCL H ospital 14:43:28 INJ W S&I CLINICAL HISTORY: Z98.890 Other specified postprocedural states, R15.9 Full incontinence of feces, fecal incontinence lumbar radiculopathy. Prior lumbar spine surgery. COMPARISON: Myelogram from February 25, 2022. Technique: Informed consent was obtained from the patient prior to the exam. Maximum skin entry dosage was 32 mGy. The patient was prepped in a sterile fashion in prone position. 1% Xylocaine was utilized for local anesthesia. 4 mg of intramuscular morphine were given for pain management. Zofran was given for nausea. Utilizing fluoroscopic guidance a 20-gauge spinal needle was placed into the subarachnoid space at the L1-2 level since the prior myelogram showed the distal cord ended above this level. 12 mL 240 mg percent Omnipaque were injected intrathecal and multiple spot radiographs were obtained. There were no complications. The primary surgeon was Dr. Romero. There were no assistants. There is no significant blood loss. The patient was sent to the CT area and then the recovery area after the procedure and discharged after he met discharge criteria. FINDINGS: There is enlargement of the subarachnoid space since the prior exam at the L5-S1 disc space level and behind the L5 vertebral body with less mass effect on the nerve root sleeves and nerve roots. There is poor contrast opacification however below the L5-S1 disc space level. There is mild anterior indentation on the subarachnoid space at L4-5, L3-4, L2-3, and to a lesser extent L1-2. This is greater with extension compared to flexion. IMPRESSION: Successful fluoroscopic-guided lumbar myelogram. Compared to prior exam there is improvement in the subarachnoid space size and the mass effect at the L5-S1 disc space level and behind the L5 vertebral body level. There is however poor contrast opacification below the L5-S1 disc space level. [facility] [id number] Post Myelogram EXAMINATION: CT Me thodist Lumbar 9 lumbar spine after Hospit al 22:07:09 intrathecal injection of contrast postmyelogram. Sagittal and coronal reformatted images were obtained. Automated exposure control was utilized to lower patient radiation dosage. CLINICAL HISTORY: Z98.890 Other specified postprocedural states, R15.9 Full incontinence of feces, lumbar radiculopathy fecal incontinence COMPARISON: CT of the lumbar spine postmyelogram from February 25, 2022. Lumbar spine x-rays from April 15, 2023. FINDINGS: The mid to upper lumbar spine is slightly flexed. L5-S1: There is mild to moderate disc space narrowing with inward concavity of the posterior inferior L5 endplate. There is new laminectomy with enlargement of the canal and subarachnoid space behind the L5 vertebral body. 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 There is bulge with a central and paracentral protrusion narrowing the anterior canal. There is decreased mass effect on the nerve root sleeves. There is however prominent canal stenosis at the upper S1 level below the laminectomy. 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 L4-5: There is bulge, facet and ligamentum flavum hypertrophy. 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 There is congenital foraminal stenosis, although there is fat in the upper foramen in the region of the nerves. These findings are relatively stable. L3-4: There is bulge flattening the subarachnoid space near the nerve roots. There is mild facet and ligamentum flavum hypertrophy. There is mild narrowing of the AP dimension of the central subarachnoid space and lateral recess narrowing. There is mild inferior foraminal narrowing in part congenital in nature. These findings are stable. L2-3: There is no significant canal or foraminal stenosis from degenerative change. L1-2: There is no significant canal or foraminal stenosis from degenerative change. T12-L1: There is no significant canal or foraminal stenosis. T11-12: There is no significant canal or foraminal stenosis. The distal cord ends at the T12-L1 level and is grossly unremarkable. The study is not performed for good imaging of the soft tissue structures in the abdomen and pelvis. IMPRESSION: There is new L5-S1 region laminectomy with improvement in the narrowing of the subarachnoid space and mass effect on the nerve root sleeves. There is still, however, prominent canal stenosis at the upper S1 level where the posterior elements has not been resected. There are degenerative changes and congenital canal and foraminal stenosis as described. [facility]-[id number] Comprehensive metabolic 2000 panel - Serum or [...] alkaline 60 U/L 40-1 30 phosphatase, total) [facility] Test Item Value Reference Range Interpretation Comments lipase (test code = lipase) 290 U/L 13-60 H [facility] W Auto Differential panel - [id number] 12:07:00 Test Item Value Reference Range Interpretation [...] NRBC# (test code = NRBC#) 0 [facility]L [facility] 07:40:00 Test Item Value [...] (test code = normal normal platelet morphology) [facility] 07:12:00 Test Item Value Reference Range Interpretation Comments lipase (test code = lipase) 432 U/L 13-60 H [facility] - Serum or [...] U/L 40-130 code = alkaline phosphatase, total) [place] [id number] 07:06:00 Test Item Value Reference Range Interpretation Comments LDH (test code = LDH) 421 U[facility]L 135-[facility] Test Item Value Reference Range Interpretation Comments LDH (test code = LDH) 421 U/L 135-225 H [facility] - [id number] 06:46:00 Test Item Value Reference Range Interpretation [...] morph. normal RBC code = morphology comment) [facility] 11:10:00 Test Item Value Reference Range Interpretation Comments lipase (test code = lipase) 478 U/L 13-60 H [facility] - Serum or [...] U/L 40-130 code = alkaline phosphatase, total) [facility] W Ordered Manual Differential panel - [id number] 10:52:00 Test Item Value Reference Range Interpretation [...] (test normal normal code = platelet morphology) [facility] 05:46:00 Test Item Value [...] (test code = normal normal platelet morphology) [facility] - Serum or [...] U/L 40-130 code = alkaline phosphatase, total) [facility] 05:30:00 Test Item Value Reference Range Interpretation Comments lipase (test code = lipase) 273 U/L 13-60 H [facility] W Auto Differential panel - [id number] 05:16:00 Test Item Value Reference Range Interpretation [...] morph. normal RBC code = morphology comment) [facility]13 11:13:00 Test Item Value [...] (test code = normal normal platelet morphology) [facility] diff (reflexed)2022-06-13 11:13:00 Test Item [...] (test code = normal normal platelet morphology) [facility] diff (reflexed)2022-06-13 11:13:00 Test Item [...] (test code = normal normal platelet morphology) [facility] diff (reflexed)2022-06-13 11:13:00 Test Item [...] (test code = normal normal platelet morphology) [facility] W Auto Differential panel - [id number] 08:26:00 Test Item Value Reference Range Interpretation [...] NRBC# (test code = NRBC#) 0 K/uL [facility] W Auto Differential panel - [id number] 08:26:00 Test Item Value Reference Range Interpretation [...] NRBC# (test code = NRBC#) 0 K/uL [facility] - Serum or [...] U/L 40-130 code = alkaline phosphatase, total) [facility] 08:22:00 Test Item Value Reference Range Interpretation Comments lipase (test code = lipase) 226 U/L 13-60 H [facility] metabolic 1999 panel - Serum or Plasma [...] U/L 40-130 code = alkaline phosphatase, total) [facility] 08:22:00 Test Item Value Reference Range Interpretation Comments lipase (test code = lipase) 226 U/L 13-60 H [facility] - Serum [...] U/L 40-130 code = alkaline phosphatase, total) [facility] 04:36:00 Test Item Value Reference Range Interpretation Comments lipase (test code = lipase) 102 U/L 13-60 H [facility] 04:36:00 Test Item Value Reference Range Interpretation Comments lipase (test code = lipase) 102 U/L 13-60 H [facility] - Serum or [...] U/L 40-130 code = alkaline phosphatase, total) [facility] 04:36:00 Test Item Value Reference Range Interpretation Comments lipase (test code = lipase) 102 U/L 13-60 H [facility] 04:36:00 Test Item Value Reference Range Interpretation Comments lipase (test code = lipase) 102 U/L 13-60 H [facility] W Auto Differential panel - [id number] 04:18:00 Test Item Value Reference Range Interpretation [...] NRBC# (test code = NRBC#) 0 K/uL [facility] W Auto Differential panel - [id number] 04:18:00 Test Item Value Reference Range Interpretation [...] NRBC# (test code = NRBC#) 0 K/uL [place] [id number] 08:39:00 Test Item Value Reference Range Interpretation Comments LDH (test code = LDH) 457 U/L 135-225 H [place] [id number] 08:39:00 Test Item Value Reference Range Interpretation Comments LDH (test code = LDH) 457 U/L 135-225 H [facility] [id number] 08:26:00 Test Item Value Reference Range Interpretation Comments lactic acid (test code = lactic 1.12 mmol/L 0.5-2.2 acid) [facility] [id number] 08:26:00 Test Item Value Reference Range Interpretation Comments lactic acid (test code = lactic 1.12 mmol/L 0.5-2.2 acid) [facility] 07:47:00 Test Item Value Reference Range Interpretation Comments lipase (test code = lipase) 136 U/L 13-60 H [facility] 07:47:00 Test Item Value Reference Range Interpretation Comments lipase (test code = lipase) 136 U/L 13-60 H [facility] - Serum or [...] U/L 40-130 code = alkaline phosphatase, total) [facility] - Serum or [...] U/L 40-130 code = alkaline phosphatase, total) [facility]-11 07:30:00 Test Item Value [...] (test code = normal normal platelet morphology) [facility] 07:30:00 Test Item [...] (test code = normal normal platelet morphology) [facility] W Auto Differential panel - [id number] 07:23:00 Test Item Value Reference Range Interpretation [...] morph. normal RBC code = morphology comment) [facility] W Auto Differential panel - [id number] 07:23:00 Test Item Value Reference Range Interpretation [...] comment) [facility] panel - Arterial [id number] 15:03:00 Test Item Value Reference Range Interpretation [...] content) [facility] panel - Arterial [id number] 15:03:00 Test Item Value Reference Range Interpretation [...] (test code = O2 7.9 mmol/L content) [facility]2022-12-01 13:03:00 Test Item Value Reference Range Interpretation Comments blood culture (test code = final report. blood culture) [facility]2022-12-01 13:03:00 Test Item Value Reference Range Interpretation Comments blood culture (test code = final report. blood culture) [facility] diff (reflexed)2022-06-10 07:41:00 Test Item [...] (test code = normal normal platelet morphology) [facility] diff (reflexed)2022-06-10 07:41:00 Test Item [...] (test code = normal normal platelet morphology) [facility] 07:33[facility]00 Test Item Value Reference Range Interpretation Comments LDH (test code = LDH) 319 U/L 135-225 H [facility] 07:33:00 Test Item Value Reference Range Interpretation Comments LDH (test code = LDH) 319 U/L 135-225 H [facility] - Serum or [...] U/L 40-130 code = alkaline phosphatase, total) [facility] 07:28:00 Test Item Value Reference Range Interpretation Comments lipase (test code = lipase) 297 U/L 13-60 H [facility] - Serum or [...] U/L 40-130 code = alkaline phosphatase, total) [facility] 07:28:00 Test Item Value Reference Range Interpretation Comments lipase (test code = lipase) 297 U/L 13-60 H [facility] [id number] 07:26:00 Test Item Value Reference Range Interpretation Comments lactic acid (test code = lactic 1.18 mmol/L 0.5-2.2 acid) [facility] [id number] 07:26:00 Test Item Value Reference Range Interpretation Comments lactic acid (test code = lactic 1.18 mmol/L 0.5-2.2 acid) [facility] [id number] 06:53:00 Test Item Value Reference Range Interpretation Comments ionized calcium (test code = 4.17 mg/dL 4.34-5.00 L ionized calcium) [facility] W Auto Differential panel - [id number] 06:53:00 Test Item Value Reference Range Interpretation [...] morph. normal RBC code = morphology comment) [facility] [id number] 06:53:00 Test Item Value Reference Range Interpretation Comments ionized calcium (test code = 4.17 mg/dL 4.34-5.00 L ionized calcium) [facility] W Auto Differential panel - [id number] 06:53:00 Test Item Value Reference Range Interpretation [...] morph. normal RBC code = morphology comment) [facility] 06:34:00 Test Item Value Reference Range Interpretation Comments lipase (test code = lipase) 1018 U/L 13-60 H [facility]22-[facility]-30 06:34:00 Test Item Value Reference Range Interpretation Comments lipase (test code = lipase) 1018 U/L 13-60 H [facility] 06:33:00 Test Item Value Reference Range Interpretation Comments LDH (test code = LDH) 296 U/L 135-225 H [place] [id number] 06:33:00 Test Item Value Reference Range Interpretation Comments LDH (test code = LDH) 296 U/L 135-225 H [facility] - Serum or [...] U/L 40-130 code = alkaline phosphatase, total) [facility] - Serum or [...] = alkaline phosphatase, total) [facility] [id number] 06:26:00 Test Item Value Reference Range Interpretation Comments lactic acid (test code = lactic 1.00 mmol/L 0.5-2.2 acid) [facility] [id number] 06:26:00 Test Item Value Reference Range Interpretation Comments lactic acid (test code = lactic 1.00 mmol/L 0.5-2.2 acid) [facility] W Auto Differential panel - [id number] 06:16:00 Test Item Value Reference Range Interpretation [...] NRBC# (test code = NRBC#) 0 K/uL [facility] W Auto Differential panel - [id number] 06:16:00 Test Item Value Reference Range Interpretation [...] NRBC# (test code = NRBC#) 0 K/uL [facility] [id number] 05:06:00 Test Item Value Reference Range Interpretation [...] (test code = 6.828 cholesterol risk ratio) [facility] [id number] 05:06:00 Test Item Value Reference Range Interpretation [...] (test code = 6.828 cholesterol risk ratio) [facility]-29 04:59:00 Test Item Value Reference Range Interpretation Comments lipase (test code = lipase) 1955 U/L 13-60 H [facility]2022-11-29 04:59:00 Test Item Value Reference Range Interpretation Comments lipase (test code = lipase) 1955 U/L 13-60 H [facility]22-[facility]-29 04:59:00 Test Item Value Reference Range Interpretation Comments lipase (test code = lipase) 1955 U/L 13-60 H [facility]22-[facility]-29 04:59:00 Test Item Value Reference Range Interpretation Comments lipase (test code = lipase) 1955 U/L 13-60 H [facility] W Auto Differential panel - [id number] 04:07:00 Test Item Value Reference Range Interpretation [...] NRBC# (test code = NRBC#) 0 K/uL [facility] W Auto Differential panel - [id number] 04:07:00 Test Item Value Reference Range Interpretation [...] NRBC# (test code = NRBC#) 0 K/uL [facility] [id number] 18:23:00 Test Item Value Reference Range Interpretation Comments alcohol level (test code = alcohol < 10.0 0.0-10.1 level) [facility] [id number] 18:23:00 Test Item Value Reference Range Interpretation Comments alcohol level (test code = alcohol < 10.0 0.0-10.1 level) [facility] [id number] 11:47:00 Test Item Value Reference Range Interpretation Comments POC glucose (test code = 103 mg/dL 65-99 H Ope rator Name: 44355-4) Nba Urbina in [facility] ID: [id number] able: RN Notified Lab Interpretation (test Abnormal code = 31823-2) [facility] [id number] 11:47:00 Test Item Value Reference Range Interpretation Comments POC glucose (test code = 103 mg/dL 65-99 H Ope rator Name: 55611-7) Esmail Quratula in [facility] ID: [id number] able: RN Notified Lab Interpretation (test Abnormal code = 02888-8) [facility]2022-08-23 11:47:00 Test Item Value Reference Range Interpretation Comments POC glucose (test code = 103 mg/dL 65-99 H Ope rator Name: 52940-6) Esmail Quratula in [facility] ID: [id number] able: RN Notified Lab Interpretation (test Abnormal code = 81393-0) [facility]2022-08-23 11:47:00 Test Item Value Reference Range Interpretation Comments POC glucose (test code = 103 mg/dL 65-99 H Ope rator Name: 60518-8) Esmail Quratula in [facility] ID: [id number] able: RN Notified Lab Interpretation (test Abnormal code = 11113-0) [facility]2022-08-23 11:47:00 Test Item Value Reference Range Interpretation Comments POC glucose (test code = 103 mg/dL 65-99 H Ope rator Name: 11314-0) Esmail Quratula in [facility] ID: [id number] able: RN Notified Lab Interpretation (test Abnormal code = 77693-3) [facility]2022-08-23 11:47:00 Test Item Value Reference Range Interpretation Comments POC glucose (test code = 103 mg/dL 65-99 H Ope rator Name: 20339-0) Esmail Quratula in [facility] ID: [id number] able: RN Notified Lab Interpretation (test Abnormal code = 38659-6) [facility]2022-08-23 11:47:00 Test Item Value Reference Range Interpretation Comments POC glucose (test code = 103 mg/dL 65-99 H Ope rator Name: 95677-9) Esmail Quratula in [facility] ID: [id number] able: RN Notified Lab Interpretation (test Abnormal code = 32370-1) [facility]2022-08-23 11:47:00 Test Item Value Reference Range Interpretation Comments POC glucose (test code = 103 mg/dL 65-99 H Ope rator Name: 85412-4) Esmail Quratula in [facility] ID: [id number] able: RN Notified Lab Interpretation (test Abnormal code = 31382-0) [facility]2022-08-23 11:47:00 Test Item Value Reference Range Interpretation Comments POC glucose (test code = 103 mg/dL 65-99 H Ope rator Name: 31050-9) Esmail Quratula in [facility] ID: [id number] able: RN Notified Lab Interpretation (test Abnormal code = 14460-3) [facility]2022-08-23 11:47:00 Test Item Value Reference Range Interpretation Comments POC glucose (test code = 103 mg/dL 65-99 H Ope rator Name: 49414-9) Esmail Quratula in [facility] ID: [id number] able: RN Notified Lab Interpretation (test Abnormal code = 99509-5) [facility]2022-08-23 11:47:00 Test Item Value Reference Range Interpretation Comments POC glucose (test code = 103 mg/dL 65-99 H Ope rator Name: 33679-4) Esmail Quratula in [facility] ID: [id number] able: RN Notified Lab Interpretation (test Abnormal code = 10002-5) [facility]2022-08-23 11:47:00 Test Item Value Reference Range Interpretation Comments POC glucose (test code = 103 mg/dL 65-99 H Ope rator Name: 40773-1) Esmail Quratula in [facility] ID: [id number] able: RN Notified Lab Interpretation (test Abnormal code = 99262-8) [facility]2022-08-23 11:47:00 Test Item Value Reference Range Interpretation Comments POC glucose (test code = 103 mg/dL 65-99 H Ope rator Name: 77412-9) Esmail Quratula in [facility] ID: [id number] able: RN Notified Lab Interpretation (test Abnormal code = 87192-8) [facility]2022-08-23 11:47:00 Test Item Value Reference Range Interpretation Comments POC glucose (test code = 103 mg/dL 65-99 H Ope rator Name: 35051-1) Esmail Quratula in [facility] ID: [id number] able: RN Notified Lab Interpretation (test Abnormal code = 09453-7) [facility]2022-08-23 11:47:00 Test Item Value Reference Range Interpretation Comments POC glucose (test code = 103 mg/dL 65-99 H Ope rator Name: 41338-8) Esmail Quratula in [facility] ID: [id number] able: RN Notified Lab Interpretation (test Abnormal code = 77792-4) [facility]2022-08-23 11:47:00 Test Item Value Reference Range Interpretation Comments POC glucose (test code = 103 mg/dL 65-99 H Ope rator Name: 23500-4) Esmail Quratula in [facility] ID: [id number] able: RN Notified Lab Interpretation (test Abnormal code = 92232-8) [facility]2022-08-23 11:47:00 Test Item Value Reference Range Interpretation Comments POC glucose (test code = 103 mg/dL 65-99 H Ope rator Name: 51190-2) Esmail Quratula in [facility] ID: [id number] able: RN Notified Lab Interpretation (test Abnormal code = 50731-4) [facility]2022-08-23 11:47:00 Test Item Value Reference Range Interpretation Comments POC glucose (test code = 103 mg/dL 65-99 H Ope rator Name: 20007-1) Esmail Quratula in [facility] ID: [id number] able: RN Notified Lab Interpretation (test Abnormal code = 56952-7) [facility]2022-08-23 11:47:00 Test Item Value Reference Range Interpretation Comments POC glucose (test code = 103 mg/dL 65-99 H Ope rator Name: 14743-1) Esmail Quratula in [facility] ID: [id number] able: RN Notified Lab Interpretation (test Abnormal code = 95268-4) [facility]2022-08-23 11:47:00 Test Item Value Reference Range Interpretation Comments POC glucose (test code = 103 mg/dL 65-99 H Ope rator Name: 69890-2) Esmail Quratula in [facility] ID: [id number] able: RN Notified Lab Interpretation (test Abnormal code = 00889-7) [facility]2022-08-23 11:47:00 Test Item Value Reference Range Interpretation Comments POC glucose (test code = 103 mg/dL 65-99 H Ope rator Name: 61104-6) Esmail Quratula in [facility] ID: [id number] able: RN Notified Lab Interpretation (test Abnormal code = 16311-1) [facility]2022-08-23 11:47:00 Test Item Value Reference Range Interpretation Comments POC glucose (test code = 103 mg/dL 65-99 H Ope rator Name: 87277-1) Esmail Quratula in [facility] ID: [id number] able: RN Notified Lab Interpretation (test Abnormal code = 34217-6) [facility]2022-08-23 11:47:00 Test Item Value Reference Range Interpretation Comments POC glucose (test code = 103 mg/dL 65-99 H Ope rator Name: 49064-8) Esmail Quratula in [facility] ID: [id number] able: RN Notified Lab Interpretation (test Abnormal code = 91898-5) [facility]2022-08-23 11:47:00 Test Item Value Reference Range Interpretation Comments POC glucose (test code = 103 mg/dL 65-99 H Ope rator Name: 40104-9) Esmail Quratula in [facility] ID: [id number] able: RN Notified Lab Interpretation (test Abnormal code = 69005-4) [facility]2022-08-23 11:47:00 Test Item Value Reference Range Interpretation Comments POC glucose (test code = 103 mg/dL 65-99 H Ope rator Name: 09826-6) Esmail Quratula in [facility] ID: [id number] able: RN Notified Lab Interpretation (test Abnormal code = 11969-9) [facility]2022-08-23 11:47:00 Test Item Value Reference Range Interpretation Comments POC glucose (test code = 103 mg/dL 65-99 H Ope rator Name: 76607-3) Esmail Quratula in [facility] ID: [id number] able: RN Notified Lab Interpretation (test Abnormal code = 62878-2) [facility]2022-08-23 11:47:00 Test Item Value Reference Range Interpretation Comments POC glucose (test code = 103 mg/dL 65-99 H Ope rator Name: 13171-5) Esmail Quratula in [facility] ID: [id number] able: RN Notified Lab Interpretation (test Abnormal code = 84273-8) [facility]2022-08-23 11:47:00 Test Item Value Reference Range Interpretation Comments POC glucose (test code = 103 mg/dL 65-99 H Ope rator Name: 81440-2) Esmail Quratula in [facility] ID: [id number] able: RN Notified Lab Interpretation (test Abnormal code = 14078-0) [facility]2022-08-23 11:47:00 Test Item Value Reference Range Interpretation Comments POC glucose (test code = 103 mg/dL 65-99 H Ope rator Name: [id number]) Esmail Quratula in [facility] ID: [id number] able: RN Notified Lab Interpretation (test Abnormal code = 27614-4) [facility]2022-08-23 11:47:00 Test Item Value Reference Range Interpretation Comments POC glucose (test code = 103 mg/dL 65-99 H Ope rator Name: [id number]) Esmail Quratula in [facility] ID: [id number] able: RN Notified Lab Interpretation (test Abnormal code = 38448-3) [facility]2022-08-23 11:47:00 Test Item Value Reference Range Interpretation Comments POC glucose (test code = 103 mg/dL 65-99 H Ope rator Name: [id number]) Esmail Quratula in [facility] ID: [id number] able: RN Notified Lab Interpretation (test Abnormal code = 38854-6) [facility] Pre/Post [id number] 20:29:23 Test Item Value Reference Range Interpretation Comments Ventricular rate (test code = 253) Atrial rate (test code = 255) OH interval (test code = 266) QRSD interval [...] MD (2064) on 03/01/2022 3:29:[address] [facility] Pre/Post [id number] 20:29:23 Test Item Value Reference Range Interpretation Comments Ventricular rate (test code = 253) Atrial rate (test code = 255) OH interval (test code = 266) QRSD interval [...] MD (2064) on 03/01/2022 3:29:[address] [facility] Pre/Post [id number] 20:29:23 Test Item Value Reference Range Interpretation Comments Ventricular rate (test code = 253) Atrial rate (test code = 255) OH interval (test code = 266) QRSD interval [...] MD (2064) on 03/01/2022 3:29:[address] [facility] Pre/Post [id number] 20:29:23 Test Item Value Reference Range Interpretation Comments Ventricular rate (test code = 253) Atrial rate (test code = 255) OH interval (test code = 266) QRSD interval [...] MD (2064) on 03/01/2022 3:29:[address] [facility] Pre/Post [id number] 20:29:23 Test Item Value Reference Range Interpretation Comments Ventricular rate (test code = 253) Atrial rate (test code = 255) OH interval (test code = 266) QRSD interval [...] MD (2064) on 03/01/2022 3:29:[address] [facility] Pre/Post [id number] 20:29:23 Test Item Value Reference Range Interpretation Comments Ventricular rate (test code = 253) Atrial rate (test code = 255) OH interval (test code = 266) QRSD interval [...] MD (2064) on 03/01/2022 3:29:[address] [facility] Pre/Post [id number] 20:29:23 Test Item Value Reference Range Interpretation Comments Ventricular rate (test code = 253) Atrial rate (test code = 255) OH interval (test code = 266) QRSD interval [...] MD (2064) on 03/01/2022 3:29:[address] [facility] Pre/Post [id number] 20:29:23 Test Item Value Reference Range Interpretation Comments Ventricular rate (test code = 253) Atrial rate (test code = 255) OH interval (test code = 266) QRSD interval [...] MD (2064) on 03/01/2022 3:29:[address] [facility] Pre/Post [id number] 20:29:23 Test Item Value Reference Range Interpretation Comments Ventricular rate (test code = 253) Atrial rate (test code = 255) OH interval (test code = 266) QRSD interval [...] MD (2064) on 03/01/2022 3:29:[address] [facility] Pre/Post [id number] 20:29:23 Test Item Value Reference Range Interpretation Comments Ventricular rate (test code = 253) Atrial rate (test code = 255) OH interval (test code = 266) QRSD interval [...] MD (2064) on 03/01/2022 3:29:[address] [facility] Pre/Post [id number] 20:29:23 Test Item Value Reference Range Interpretation Comments Ventricular rate (test code = 253) Atrial rate (test code = 255) OH interval (test code = 266) QRSD interval [...] MD (2064) on 03/01/2022 3:29:[address] [facility] Pre/Post [id number] 20:29:23 Test Item Value Reference Range Interpretation Comments Ventricular rate (test code = 253) Atrial rate (test code = 255) OH interval (test code = 266) QRSD interval [...] MD (2064) on 03/01/2022 3:29:[address] [facility] Pre/Post [id number] 20:29:23 Test Item Value Reference Range Interpretation Comments Ventricular rate (test code = 253) Atrial rate (test code = 255) OH interval (test code = 266) QRSD interval [...] MD (2064) on 03/01/2022 3:29:[address] [facility] Pre/Post [id number] 20:29:23 Test Item Value Reference Range Interpretation Comments Ventricular rate (test code = 253) Atrial rate (test code = 255) OH interval (test code = 266) QRSD interval [...] MD (2064) on 03/01/2022 3:29:[address] [facility] Pre/Post [id number] 20:29:23 Test Item Value Reference Range Interpretation Comments Ventricular rate (test code = 253) Atrial rate (test code = 255) OH interval (test code = 266) QRSD interval [...] MD (2064) on 03/01/2022 3:29:[address] [facility] Pre/Post [id number] 20:29:23 Test Item Value Reference Range Interpretation Comments Ventricular rate (test code = 253) Atrial rate (test code = 255) OH interval (test code = 266) QRSD interval [...] MD (2064) on 03/01/2022 3:29:[address] [facility] Pre/Post [id number] 20:29:23 Test Item Value Reference Range Interpretation Comments Ventricular rate (test 84 code = 253) Atrial rate (test code = 84 255) OH interval (test code = 172 266) QRSD [...] MD (2064) on 03/01/2022 3:29:[address] [facility] Pre/Post [id number] 20:29:23 Test Item Value Reference Range Interpretation Comments Ventricular rate (test 84 code = 253) Atrial rate (test code = 84 255) OH interval (test code = 172 266) QRSD [...] MD (2064) on 03/01/2022 3:29:[address] [facility] Pre/Post [id number] 20:29:23 Test Item Value Reference Range Interpretation Comments Ventricular rate (test 84 code = 253) Atrial rate (test code = 84 255) OH interval (test code = 172 266) QRSD [...] previous ECGs available-Electronica lly Signed By Ashok Eemry MD (2064) on 03/01/2022 3:29:[address] [facility] Pre/Post [id number] 20:29:23 Test Item Value Reference Range Interpretation Comments Ventricular rate (test 84 code = 253) Atrial rate (test code = 84 255) OH interval (test code = 172 266) QRSD [...] MD (2064) on 03/01/2022 3:29:[address] [facility] Pre/Post [id number] 20:29:23 Test Item Value Reference Range Interpretation Comments Ventricular rate (test 84 code = 253) Atrial rate (test code = 84 255) OH interval (test code = 172 266) QRSD [...] MD (2064) on 03/01/2022 3:29:[address] [facility] Pre/Post [id number] 20:29:23 Test Item Value Reference Range Interpretation Comments Ventricular rate (test 84 code = 253) Atrial rate (test code = 84 255) OH interval (test code = 172 266) QRSD [...] MD (2064) on 03/01/2022 3:29:[address] [facility] Pre/Post [id number] 20:29:23 Test Item Value Reference Range Interpretation Comments Ventricular rate (test 84 code = 253) Atrial rate (test code = 84 255) OH interval (test code = 172 266) QRSD [...] MD (2064) on 03/01/2022 3:29:[address] [facility] Pre/Post [id number] 20:29:23 Test Item Value Reference Range Interpretation Comments Ventricular rate (test 84 code = 253) Atrial rate (test code = 84 255) OH interval (test code = 172 266) QRSD [...] MD (2064) on 03/01/2022 3:29:[address] [facility] Pre/Post [id number] 20:29:23 Test Item Value Reference Range Interpretation Comments Ventricular rate (test 84 code = 253) Atrial rate (test code = 84 255) OH interval (test code = 172 266) QRSD [...] MD (2064) on 03/01/2022 3:29:[address] [facility] Pre/Post [id number] 20:29:23 Test Item Value Reference Range Interpretation Comments Ventricular rate (test 84 code = 253) Atrial rate (test code = 84 255) OH interval (test code = 172 266) QRSD [...] MD (2064) on 03/01/2022 3:29:[address] [facility] Pre/Post [id number] 20:29:23 Test Item Value Reference Range Interpretation Comments Ventricular rate (test 84 code = 253) Atrial rate (test code = 84 255) OH interval (test code = 172 266) QRSD [...] MD (2064) on 03/01/2022 3:29:[address] [facility] Pre/Post [id number] 20:29:23 Test Item Value Reference Range Interpretation Comments Ventricular rate (test 84 code = 253) Atrial rate (test code = 84 255) OH interval (test code = 172 266) QRSD [...] MD (2064) on 03/01/2022 3:29:[address] [facility] Pre/Post [id number] 20:29:23 Test Item Value Reference Range Interpretation Comments Ventricular rate (test 84 code = 253) Atrial rate (test code = 84 255) OH interval (test code = 172 266) QRSD [...] MD (2064) on 03/01/2022 3:29:[address] [facility] Pre/Post [id number] 20:29:23 Test Item Value Reference Range Interpretation Comments Ventricular rate (test 84 code = 253) Atrial rate (test code = 84 255) OH interval (test code = 172 266) QRSD [...] MD (2064) on 03/01/2022 3:29:[address] [facility] Pre/Post [id number] 20:29:23 Test Item Value Reference Range Interpretation Comments Ventricular rate (test code = 253) Atrial rate (test code = 255) OH interval (test code = 266) QRSD interval [...] Emery MD (2064) on 03/01/2022 3:29:18 [facility] [Presence] in Respiratory specimen by TENZIN with probe [id number] 18:27:20 Test Item Value Reference Range Interpretation Comments SARS-CoV-2 (COVID-19) RNA Not detected [Presence] in Respiratory specimen by TENZIN with probe detection (test code = 34551-7) Whether patient is employed in a Unknown healthcare setting (test code = 75400-5) Whether the patient has symptoms Unknown related to condition of interest (test code = 28163-6) Whether the patient was Unknown hospitalized for condition of interest (test code = 42139-9) Whether the patient was admitted Unknown to intensive care unit (ICU) for condition of interest (test code = 44354-4) Whether patient resides in a Unknown congregate care setting (test code = 62443-5) status (test code = Unknown 57634-8) Date and time of symptom onset Unknown (test code = 67375-4) [facility] RNA [Presence] in Respiratory specimen by TENZIN with probe [id number] 01:00:31 Test Item Value Reference Range Interpretation Comments SARS-CoV-2 (COVID-19) RNA Not detected [Presence] in Respiratory specimen by TENZIN with probe detection (test code = 15287-5) Whether patient is employed in a Unknown healthcare setting (test code = 22438-2) Whether the patient has symptoms Unknown related to condition of interest (test code = 60363-7) Whether the patient was Unknown hospitalized for condition of interest (test code = 53253-3) Whether the patient was admitted Unknown to intensive care unit (ICU) for condition of interest (test code = 40844-9) Whether patient resides in a Unknown congregate care setting (test code = 19624-6) status (test code = Unknown 03977-6) Date and time of symptom onset Unknown (test code = 93611-9) [facility] and SARS CoV + SARS CoV 2 Ag panel, [place], upper respiratory [id number] 10:40:00 Test Item Value Reference Range Interpretation Comments RAPID SARS COV (test code = RAPID negative SARS COV) RAPID FLU A (test code = RAPID FLU negative A) RAPID FLU B (test code = RAPID FLU negative B) [facility] - [facility] or [id number] 06:34:00 Test Item Value Reference Range Interpretation Comments cholesterol level (test code = 169 mg/dL 150-200 cholesterol level) triglycerides level (test code = 93 mg/dL <150 triglycerides level) HDL cholesterol (test code = HDL 52 mg/dL >55 L cholesterol) LDL cholesterol direct (test code = 108 mg/dL <100 H LDL cholesterol direct) cholesterol risk ratio (test code = 3.250 cholesterol risk ratio) [facility]/volume] in [id number] 00:00:00 Test Item Value Reference Range Interpretation Comments Hemoglobin A1c [Mass/volume] in Blood 5.3 % 4.0-6.0 (test code = 48155-2) [facility]] in Serum or [id number] 00:00:00 Test Item Value Reference Range Interpretation Comments Thyrotropin [Units/volume] in 0.44 uIU/mL 0.36-3.74 Serum or Plasma (test code = 3016-3) [facility]
[2023-05-31] MEDS ORDERED: Phenylephrine HCl 10 MG/ML 1 ML VIAL ONE (11:00)
[2023-05-31] MEDS ORDERED: MORPHINE 4 MG/ML SYR ONE (11:14)
--- NOTE | 2023-05-31 12:08 | ER ---
Nurse's Notes [facility] Name: Francesco Avelar Age: 27 yrs Sex: Male : 1995 Arrival Date: 05/31/2023 Time: 10:24 Bed 4 Private MD: Diagnosis: Nelliapism, unspecified Presentation: 05/31 11:14 Chief complaint: Patient states: "My priapism acted up for the past 5 hrs and won't go mb9 down". Coronavirus screen: At this time, the client does not indicate any symptoms associated with coronavirus-19. Ebola Screen: No symptoms or risks identified at this time. Initial Sepsis Screen: Does the patient meet any 2 criteria? No. Patient's initial sepsis screen is negative. Does the patient have a suspected source of infection? No. Patient's initial sepsis screen is negative. Risk Assessment: Do you want to hurt yourself or someone else? Patient reports no desire to harm self or others. Onset of symptoms was May 31, 2023. 11:14 Acuity: MCKENZIE 4 mb9 11:14 Method Of Arrival: Ambulatory mb9 Historical: - Allergies: 11:00 Imitrex; hb - PMHx: 11:00 adhd; Asthma; Bipolar disorder; priapism; spinal stenosis; hb - PSHx: 11:00 L5 S1 laminectomy; hb - Immunization history:: Adult Immunizations up to date. - Social history:: Smoking status: Patient denies any tobacco usage or history of. Screenin:49 [facility] ED Fall Risk Assessment (Adult) History of falling in the last 3 months, mb9 including since admission No falls in past 3 months (0 pts) Confusion or Disorientation No (0 pts) Intoxicated or Sedated No (0 pts) Impaired Gait No (0 pts) Mobility Assist Device Used No (0 pt) Altered Elimination No (0 pt) Score/Fall Risk Level 0 - 2 = Low Risk. [facility] ED Fall Risk Assessment (Adult) Score/Fall Risk Level 0 - 2 = Low Risk Oriented to surroundings, Maintained a safe environment, Educated pt \\T\\ family on fall prevention, incl call for assistance when getting out of bed. Abuse screen: Denies threats or abuse. Nutritional screening: No deficits noted. Tuberculosis screening: No symptoms or risk factors identified. Assessment: 10:48 General: Appears uncomfortable, Behavior is calm, cooperative. Pain: Complains of pain mb9 in pelvis. Neuro: [place] Agitation-Sedation Scale (RASS): 0 - Alert and Calm Level of Consciousness is awake, alert, obeys commands, Oriented to person, place, time, situation, Appropriate for age. Cardiovascular: Patient's skin is warm and dry. Respiratory: Airway is patent Respiratory effort is even, unlabored, Respiratory pattern is regular, symmetrical. GI: No signs and/or symptoms were reported involving the gastrointestinal system. : Reports pain penis. EENT: No signs and/or symptoms were reported regarding the EENT system. Derm: Skin is pink, warm \\T\\ dry. Musculoskeletal: Range of motion: intact in all extremities. 12:23 Reassessment: Patient and/or family updated on plan of care and expected duration. Pain mb9 level reassessed. Patient is alert, oriented x 3, equal unlabored respirations, skin warm/dry/pink. Patient states feeling better. Patient states symptoms have improved. Vital Signs: 10:49 BP 123 / 79; Pulse 88; Resp 18; Pulse Ox 100% on R/A; mb9 11:49 BP 129 / 77; Pulse 78; Resp 18; Pulse Ox 100% on R/A; mb9 ED Course: 10:27 Patient arrived in ED. im 10:30 Justyn Morton MD is Attending Physician. ec2 10:44 Ayesha Chavarria, SHELLEY is Primary Nurse. mb9 10:49 Arm band placed on. mb9 10:49 Placed in gown. Bed in low position. Call light in reach. Side rails up X 1. Client mb9 placed on continuous cardiac and pulse oximetry monitoring. NIBP monitoring applied. 11:15 Triage completed. mb9 12:23 No provider procedures requiring assistance completed. Patient did not have IV access mb9 during this emergency room visit. Administered Medications: 11:06 Drug: morphine IM 4 mg IM once Route: IM; Site: right deltoid; mb9 Medication: 10:49 VIS not applicable for this client. mb9 Outcome: 12:08 Discharge ordered by . ec2 12:23 Discharged to home ambulatory, with family, mb9 12:23 Condition: stable 12:23 Discharge instructions given to patient, family, Instructed on discharge instructions, follow up and referral plans. Demonstrated understanding of instructions, follow-up care, 12:23 Patient left the ED. mb9 Signatures: Joie Higgins RN RN Ayesha Chavarria RN RN mb9 Mily Altman Edwin, MD MD ec2
--- NOTE | 2023-05-31 12:08 | EDPHYS ---
Physician Documentation [facility] Name: Francesco Avelar Age: 27 yrs Sex: Male : 1995 Arrival Date: 05/31/2023 Time: 10:24 Bed 4 Private MD: ED Physician Justyn Morton HPI: 05/31 11:11 This 27 yrs old Male presents to ER via Unassigned with complaints of Penile ec2 Problem - Its stuck. 11:11 Patient arrives today for evaluation. Present. Patient states that he has a history of ec2 priapism, has been out for approximately 5 hours. States that he strained his back and feels this caused his. Present today. Patient reports no other concerns, states that he typically gets injectable phenylephrine with anesthesia associated with this. Denies any trauma.. Historical: - Allergies: 11:00 Imitrex; hb - PMHx: 11:00 adhd; Asthma; Bipolar disorder; priapism; spinal stenosis; hb - PSHx: 11:00 L5 S1 laminectomy; hb - Immunization history:: Adult Immunizations up to date. - Social history:: Smoking status: Patient denies any tobacco usage or history of. ROS: 11:11 Constitutional: as per hpi ec2 Exam: 11:11 Constitutional: GEN: NAD Head: atraumatic Eyes: EOMI Ears: External ears are ec2 normal. CV: regular rate LUNGS: no respiratory distress ABD: non-distended. : Erect penis , no evidence of trauma no ecchymosisSKIN: no evidence of rashes MSK: no evidence of trauma NEURO: moves all extremities equally Vital Signs: 10:49 BP 123 / 79; Pulse 88; Resp 18; Pulse Ox 100% on R/A; mb9 11:49 BP 129 / 77; Pulse 78; Resp 18; Pulse Ox 100% on R/A; mb9 Procedures: 11:11 Performed Priaprism management. I sterilely cleansed the penis with iodine, I used a ec2 25-gauge needle to inject 500 mcg of phenylephrine into the right corpus cavernosum and held pressure for 3 minutes with near complete detumescence.. 11:43 Performed Priapism management #2. Same as above, I sterilely cleansed penis with ec2 iodine, used a 25-gauge needle to inject 500 mcg of phenylephrine into the left corpus cavernosum, held pressure for several minutes with complete detumescence this time.. MDM: 10:31 Patient medically screened. ec2 11:11 Data reviewed: vital signs. ED course: Patient arrives today for evaluation of. ec2 Present. Examination remarkable for findings as noted above. Will perform phenylephrine injection for his. Pleasant, per patient preference will defer aspiration and sending of blood gas along with anesthetization of the area. 12:07 ED course: Injection to the corpus cavernosum x 2, after second, achieved detumescence, ec2 observed for 30 minutes after second injection with no recurrence. Will discharge, instructed to follow-up with urology. Return precautions given.. 05/31 11:00 Order name: Misc. Order: Phenylephrine 10mg/ml, 1ml diluted with 9ml NS inject 1-2 mls hb to penis; Complete Time: 11:06 Administered Medications: 11:06 Drug: morphine IM 4 mg IM once Route: IM; Site: right deltoid; mb9 Disposition Summary: 05/31/23 12:08 Discharge Ordered Notes: Location: Home ec2 Condition: Stable ec2 Diagnosis - Priapism, unspecified ec2 Followup: ec2 - With: Private Physician - When: - Reason: Continuance of care Discharge Instructions: - Discharge Summary Sheet ec2 - Priapism ec2 Forms: - Medication Reconciliation Form ec2 - Thank You Letter ec2 - Antibiotic Education ec2 - Prescription Opioid Use ec2 - Patient Portal Instructions ec2 - Leadership Thank You Letter ec2 Signatures: Joie Higgins RN RN Ayesha Chavarria RN RN mb9 Justyn Morton MD MD ec2 Corrections: (The following items were deleted from the chart) 11:43 11:11 Performed Priaprism management. I sterilely cleansed the penis with iodine, I ec2 used a 25-gauge needle to inject 500 mcg of phenylephrine into the right corpus cavernosum and held pressure for 3 minutes with detumescence.. ec2
[2023-05-31 12:32] VITALS: O2SAT 100
[2023-05-31 12:33] VITALS: BP 129/77
== END 2023-05-31 12:23 | disposition home or self-care (01) ==
LOC: ER 10:24
DX: N48.30 Priapism, unspecified (principal)
CPT/HCPCS: 96372; 99284; J2371

== ENCOUNTER 2023-06-06 11:03 | Emergency (ER) | payer BC ==
[2023-06-06] MEDS ORDERED: Phenylephrine HCl 10 MG/ML 1 ML VIAL ONE (11:32)
--- OUTSIDE RECORDS SUMMARY | 2023-06-06 11:38 | XMS REPORT | Continuity of Care Document ---
:1995 Author Organization [facility] t Address [address] [facility] [place]. [address] [place] [address] Support Name Relationship Address Phone BALA CLARK Unavailable [address] [phone] [place] [address] GREGORY DUMONT Unavailable [address] [phone] [place] [address] PRISCILA MAGANA MD Emergency Provider [address] [place] [address] PHYSICIAN, NO Primary Care Physician Unavailable Unavailab CLAIR Art Next of Kin [address] [place] [address] MD PRISCILA MAGANA Emergency Provider [address] [place] [address] MD [facility] Primary Care Physician [address] [place] [address] MD CELSA MUNGUIA Emergency Provider [address] [place] [address] MD BARBARA VELAZQUEZ Emergency Provider [address] [place] [address] MD SHI ANAYA Emergency Provider [address] [place] [address] DO ABRAHAM MCCRACKEN Admitting Provider [address] [place] [address] MD HARRISON RICO Emergency Provider [address] [place] [address] MD ALEXA TORRES Emergency Provider [address] [place] [address] MD JASON DUNAWAY Emergency Provider [address] [place] [address] [phone] [place] [address] Care Team Providers Name Role Phone Ronnell [...] Date S ource [place] [id number] 2014 (PPO) 00:00:00 [facility] [id number] 2019 [place] 00:00:00 ([place] [id number] [place] [facility] - [id number] [facility] Problems Condition Condition Condition Status Onset Resolution Last Treating Co mments Source Name Details Category Date Date Treatment Clinician Date Scrotal Scrotal Problem Active [facility] da 00:00: Medical 00 Group Lumbar Lumbar Problem Active [place] post-ojan Post-joan 5-18 da ectomy ectomy 00:00: Medical [...] Added automatic ally from request for surgery [id number] Priapism Priapism Disease Active [facility] di 8-17 st 00:00: Hospita 00 l [id number] Jock itch Problem Com [facility] [id number] Scrotal Problem Common abscess [facility] [...] sumatrip Active Unknown Commo n porras porras [facility] Family History Family Member Diagnosis Comments Start Date Stop Date Source Natural father Doan's palsy [facility] Natural mother Fibromyalgia [facility] Social History Social Habit Start Date Stop Date Quantity Comments Source Gender identity [facility] History of Tobacco Current Smoker Co [facility] - Use [facility] Sexual orientation [facility] Alcohol intake 2023-05-19 2023-05-19 Current drinker [facility] dist 00:00:00 00:00:00 of alcohol Hospital (finding) History of Social 2023-05-19 2023-05-[address] function 00:00:00 00:00:00 Hospital Tobacco use and 2022-03-01 2022-03-01 Smokeless Jew exposure 00:00:00 00:00:00 tobacco non-user Hospital Alcohol Comment 2022-03-01 2022-03-01 EVERY OTHER Methodis t 00:00:00 00:00:00 [facility] Sex Assigned At [birth year] Jew 00:00:00 00:00:00 Hospital Smoking Status Start Date Stop Date Source Heavy Tobacco Smoker [facility] Smokes tobacco daily 2022-03-01 00:00:00 [facility] Medications Ordered Filled Start Stop Current Ordering [...] QD Take 1 Meth joanna (ATARAX) 25 -09 tablet (25 st MG tablet 12:28: mg total) Hos fléix 41 by mouth l daily. levalbutero 2022-07 [...] MG MG 00:00: MG 00 Terbutaline Terbutaline 2021-1 No Terbutalin Sulfate 2.5 Sulfate 2.5 07-19 e Sulfate MG MG 00:00: 2.5 MG 00 methylPREDN 2021-0 2021- [facility] (MEDROL 00:00: 04:59 by package Hos félix DOSEPAK) 4 00 :00 instructio l mg tablet ns methylPREDN 2021-0 2021- No [facility] Met [facility] (MEDROL 00:00: 04:59 by package Hos félix DOSEPAK) 4 00 :00 instructio l mg tablet ns methylPREDN 2021-0 2021- No [facility] Met [facility] (MEDROL 00:00: 04:59 by package Hos félix DOSEPAK) 4 00 :00 instructio l mg tablet ns methylPREDN 2021-0 2021- No [facility] (MEDROL 00:00: 04:59 by package Hos félix DOSEPAK) 4 00 :00 instructio l mg tablet ns methylPREDN 2-0 2021- No [facility] (MEDROL 00:00: 04:59 by package Hos félix DOSEPAK) 4 00 :00 instructio l mg tablet ns methylPREDN 2-0 2021- No [facility] Met [facility] IS[facility] (MEDROL 00:00: 04:59 by package Hos félix DOSEPAK) 4 00 :00 instructio l mg tablet ns methylPREDN 2-0 2021- No [facility] Met [facility] (MEDROL 00:00: 04:59 by package Hos félix DOSEPAK) 4 00 :00 instructio l mg tablet ns methylPREDN 2-0 2021- No [facility] Met [facility] (MEDROL 00:00: 04:59 [...] 2- No Use as Met hodi ISolone 9-09 09-[address] (MEDROL 00:00: 04:59 by [...] mg total) Hos éflix 10 by mouth l daily. levalbutero 2021-0 [...] a l mcg/actuati day. on inhaler budesonide- 2022-0 Yes 2{puff} Q.5D [...] 10 other day. l on inhaler levalbutero 2022-0 Yes 2{puff} Q2D Inhale 2 [...] Q6H Take 1 Metho di (ULTRAM) 50 02-26-25 tablet (50 s t mg tablet 00:00: [...] up to 5 days .acute pain. traMADoL [id number] 50mg Q6H Take 1 Metho di (ULTRAM) [...] up to 5 days .acute pain. traMADoL [id number] 50mg Q6H Take 1 Metho di (ULTRAM) [...] 5 days .acute pain. tra[place]AD[place] 2021- [place] [id number] 50mg Q6H Take 1 Metho di (ULTRAM) 50 8-19 08-25 tablet (50 s t mg tablet 00:00: 04:59 mg total) Ho spita 00 :00 by mouth l every 6 (six) hours as needed for moderate pain for up to 5 days .acute pain. traM[place] 2021- [place] [id number] 50mg Q6H Take 1 Metho di (ULTRAM) 50 8-19 08-25 tablet (50 s t mg tablet 00:00: 04:59 mg total) Ho spita 00 :00 by mouth l every 6 (six) hours as needed for moderate pain for up to 5 days .acute pain. traMAD[place] 2021- [place] [id number] 50mg Q6H Take 1 Metho di (ULTRAM) 50 8-19 08-25 tablet (50 s t mg tablet 00:00: 04:59 mg total) Ho spita 00 :00 by mouth l every 6 (six) hours as needed for moderate pain for up to 5 days .acute pain. traMAD[place] 2021- [place] [id number] 50mg Q6H Take 1 Metho di (ULTRAM) [...] l extended ONCE A rel syring MONTH Terbutaline Terbutaline No Terbutalin Sulfate 2.5 Sulfate [...] MG/4ML MG/4ML _bedtim 1 MG/4ML e_as_ne eded} acetaminoph acetaminoph No acetaminop [place] 300 [...] Sudafed 30 MG MG ts_as_n MG eeded} Immunizations Ordered Filled Immunization Date Status Comments [facility] e Immunization Name Name Td (adult) Td (adult) 2022-11-26 Completed [place] preservative free preservative free 12:13:00 [facility] COVID-19 2020-10-16 Completed [facility] MRNA VACCINATION 00:00:00 [facility] COVID-19 2020-10-16 Completed Jew MRNA VACCINATION 00:00:00 [facility] PFIZER COVID-19 2020-10-16 Completed Jew MRNA VACCINATION 00:00:00 [facility] PFIZER COVID-19 2020-10-16 Completed Jew MRNA VACCINATION 00:00:00 [facility] PFIZER COVID-19 2020-10-16 Completed Jew MRNA VACCINATION 00:00:00 [facility] PFIZER COVID-19 2020-10-16 Completed Jew MRNA VACCINATION 00:00:00 [facility] PFIZER COVID-19 2020-10-16 Completed Jew MRNA VACCINATION 00:00:00 [facility] PFIZER COVID-19 2020-10-16 Completed Jew MRNA VACCINATION 00:00:00 [facility] PFIZER COVID-19 2020-10-16 Completed Jew MRNA VACCINATION 00:00:00 [facility] PFIZER COVID-19 2020-10-16 Completed Jew MRNA VACCINATION 00:00:00 [facility] PFIZER COVID-19 2020-10-16 Completed Jew MRNA VACCINATION 00:00:00 [facility] PFIZER COVID-19 2020-10-16 Completed Jew MRNA VACCINATION 00:00:00 [facility] PFIZER COVID-19 2020-10-16 Completed Jew MRNA VACCINATION 00:00:00 [facility] PFIZER COVID-19 2020-10-16 Completed Jew MRNA VACCINATION 00:00:00 [facility] PFIZER COVID-19 2020-10-16 Completed Jew MRNA VACCINATION 00:00:00 [facility] PFIZER COVID-19 2020-10-16 Completed Jew MRNA VACCINATION 00:00:00 [facility] PFIZER COVID-19 2020-10-16 Completed Jew MRNA VACCINATION 00:00:00 [facility] PFIZER COVID-19 2020-10-16 Completed Jew MRNA VACCINATION 00:00:00 [facility] PFIZER COVID-19 2020-10-16 Completed Jew MRNA VACCINATION 00:00:00 [facility] PFIZER COVID-19 2020-10-16 Completed Jew MRNA VACCINATION 00:00:00 [facility] PFIZER COVID-19 2020-10-16 Completed Jew MRNA VACCINATION 00:00:00 [facility] PFIZER COVID-19 2020-10-16 Completed Jew MRNA VACCINATION 00:00:00 [facility] PFIZER COVID-19 2020-10-16 Completed Jew MRNA VACCINATION 00:00:00 [facility] PFIZER COVID-19 2020-10-16 Completed Jew MRNA VACCINATION 00:00:00 [facility] PFIZER COVID-19 2020-10-16 Completed Jew MRNA VACCINATION 00:00:00 [facility] PFIZER COVID-19 2020-10-16 Completed Jew MRNA VACCINATION 00:00:00 [facility] PFIZER COVID-19 2020-10-16 Completed Jew MRNA VACCINATION 00:00:00 [facility] PFIZER COVID-19 2020-10-16 Completed Jew MRNA VACCINATION 00:00:00 [facility] PFIZER COVID-19 2020-10-16 Completed Jew MRNA VACCINATION 00:00:00 [facility] PFIZER COVID-19 2020-10-16 Completed Jew MRNA VACCINATION 00:00:00 [facility] PFI[facility]ER COVID-19 2020-10-16 Completed Jew MRNA VACCINATION 00:00:00 [facility] COVID-19, mRNA, COVID-19, mRNA, 2020-10-16 Completed Adryan peresa LNP-S, PF, 30 LNP-S, PF, 30 00:00:00 Medical Group mcg/0.3 mL dose mcg/0.3 mL dose (Rot[employer]el-[employer]NT[employer]) - ([employer]) - ML ML PFIZER COVID-19 2020-09-25 Completed [facility] MRNA VACCINATION 00:00:00 [facility] PFIZER COVID-19 2020-09-25 Completed Jew MRNA VACCINATION 00:00:00 [facility] PFIZER COVID-19 2020-09-25 Completed Jew MRNA VACCINATION 00:00:00 [facility] PFIZER COVID-19 2020-09-25 Completed Jew MRNA VACCINATION 00:00:00 [facility] PFIZER COVID-19 2020-09-25 Completed Jew MRNA VACCINATION 00:00:00 [facility] PFIZER COVID-19 2020-09-25 Completed Jew MRNA VACCINATION 00:00:00 [facility] PFIZER COVID-19 2020-09-25 Completed Jew MRNA VACCINATION 00:00:00 [facility] PFIZER COVID-19 2020-09-25 Completed Jew MRNA VACCINATION 00:00:00 [facility] PFIZER COVID-19 2020-09-25 Completed Jew MRNA VACCINATION 00:00:00 [facility] PFIZER COVID-19 2020-09-25 Completed Jew MRNA VACCINATION 00:00:00 [facility] PFIZER COVID-19 2020-09-25 Completed Jew MRNA VACCINATION 00:00:00 [facility] PFIZER COVID-19 2020-09-25 Completed Jew MRNA VACCINATION 00:00:00 [facility] PFIZER COVID-19 2020-09-25 Completed Jew MRNA VACCINATION 00:00:00 [facility] PFIZER COVID-19 2020-09-25 Completed Jew MRNA VACCINATION 00:00:00 [facility] PFIZER COVID-19 2020-09-25 Completed Jew MRNA VACCINATION 00:00:00 [facility] PFIZER COVID-19 2020-09-25 Completed Jew MRNA VACCINATION 00:00:00 [facility] PFIZER COVID-19 2020-09-25 Completed Jew MRNA VACCINATION 00:00:00 [facility] PFIZER COVID-19 2020-09-25 Completed Jew MRNA VACCINATION 00:00:00 [facility] PFIZER COVID-19 2020-09-25 Completed Jew MRNA VACCINATION 00:00:00 [facility] PFIZER COVID-19 2020-09-25 Completed Jew MRNA VACCINATION 00:00:00 [facility] PFIZER COVID-19 2020-09-25 Completed Jew MRNA VACCINATION 00:00:00 [facility] PFIZER COVID-19 2020-09-25 Completed Jew MRNA VACCINATION 00:00:00 [facility] PFIZER COVID-19 2020-09-25 Completed Jew MRNA VACCINATION 00:00:00 [facility] PFIZER COVID-19 2020-09-25 Completed Jew MRNA VACCINATION 00:00:00 [facility] PFIZER COVID-19 2020-09-25 Completed Jew MRNA VACCINATION 00:00:00 [facility] PFIZER COVID-19 2020-09-25 Completed Jew MRNA VACCINATION 00:00:00 [facility] PFIZER COVID-19 2020-09-25 Completed Jew MRNA VACCINATION 00:00:00 [facility] PFIZER COVID-19 2020-09-25 Completed Jew MRNA VACCINATION 00:00:00 [facility] PFIZER COVID-19 2020-09-25 Completed Jew MRNA VACCINATION 00:00:00 [facility] PFIZER COVID-19 2020-09-25 Completed Jew MRNA VACCINATION 00:00:00 [facility] PFI[facility] COVID-19 2020-09-25 Completed Jew MRNA VACCINATION 00:00:00 [facility] COVID-19, mRNA, COVID-19, mRNA, 2020-09-25 Completed Adryan ulloa LNP-S, PF, 30 LNP-S, PF, 30 00:00:00 Medical Group mcg/0.3 mL dose mcg/0.3 mL dose (FuriousBioNTJounce) - ([employer]) - ML ML influenza, influenza, 2018-05-11 Completed [place] injectable, injectable, 00:00:00 Medical Grou p quadrivalent, quadrivalent, preservative free - preservative free - ML ML influenza, influenza, 2017-06-27 Completed [place] seasonal, seasonal, 00:00:00 Medical Group injectable, injectable, preservative free - preservative free - ML ML DTaP, unspecified DTaP, unspecified 1998-10-20 Completed [place] formulation - ML formulation - ML 00:00:00 Me dical Group Hib (PRP-T) - ML Hib (PRP-T) - ML 1998-10-20 Completed [place] 00:00:[facility] varicella - ML varicella - ML 1998-07-10 Completed [facility] 00:00:00 [facility] Group MMR - ML MMR - ML 1998-07-10 Completed [place] 00:00:00 [facility] Group DTaP, unspecified DTaP, unspecified 1997 Completed [place] formulation - ML formulation - ML 00:00:00 Me dical Group Hep B, adolescent Hep B, adolescent 1997 Completed [place] or pediatric - ML or pediatric - ML 00:00:00 Medical Group OPV - ML OPV - ML 1995 Completed [place] 00:00:00 [facility] Group Hib, unspecified Hib, unspecified 1997 Completed [place] formulation - ML formulation - ML 00:00:00 Me dical Group DTaP, unspecified DTaP, unspecified 1997 Completed [place] formulation - ML formulation - ML 00:00:00 Me dical Group OPV - ML OPV - ML 1997 Completed [place] 00:00:00 [facility] Group Hib, unspecified Hib, unspecified 1997 Completed [place] formulation - ML formulation - ML 00:00:00 Me dical Group DTaP, unspecified DTaP, unspecified 1997 Completed [place] formulation - ML formulation - ML 00:00:00 Me dical Group OPV - ML OPV - ML 1997 Completed [place] 00:00:00 [facility] Group Hib, unspecified Hib, unspecified 1997 Completed [place] formulation - ML formulation - ML 00:00:00 Me dical Group Hep B, adolescent Hep B, adolescent 1997 Completed [place] or pediatric - ML or pediatric - ML 00:00:00 Medical Group Hep B, adolescent Hep B, adolescent 1997 Completed [place] or pediatric - ML or pediatric - ML 00:00:00 Medical Group [facility] COVID-19 Unknown Completed [facility] MRNA VACCINATION [facility] COVID Unknown Com[facility] Com[facility] Unknown Completed [facility] MRNA VACCINATION [facility] Unknown Completed [facility] MRNA VACCINATION [facility] Unknown Completed [facility] VACCINATION Hospital Td (adult) Td (adult) Unknown Completed [place] preservative free preservative free Medical Group DTaP, unspecified DTaP, unspecified Unknown Completed [place] formulation - ML formulation - ML Me dical Group Hib (PRP-T) - ML Hib (PRP-T) - ML Unknown Completed [place] [facility] varicella - ML varicella - ML Unknown Completed [place] MMR - ML MMR - ML Unknown Completed [facility] DTaP, unspecified DTaP, unspecified Unknown Completed [place] formulation - ML formulation - ML Me dical Group Hep B, adolescent Hep B, adolescent Unknown Completed [place] or pediatric - ML or pediatric - ML Medical Group OPV - ML OPV - ML Unknown Completed [facility] Hib, unspecified Hib, unspecified Unknown Completed [place] formulation - ML formulation - ML Me dical Group DTaP, unspecified DTaP, unspecified Unknown Completed [place] formulation - ML formulation - ML Me dical Group OPV - ML OPV - ML Unknown Completed [facility] Hib, unspecified Hib, unspecified Unknown Completed [place] formulation - ML formulation - ML Me dical Group DTaP, unspecified DTaP, unspecified Unknown Completed [place] formulation - ML formulation - ML Me dical Group OPV - ML OPV - ML Unknown Completed [facility] Hib, unspecified Hib, unspecified Unknown Completed [place] formulation - ML formulation - ML Me dical Group Hep B, adolescent Hep B, adolescent Unknown Completed [place] or pediatric - ML or pediatric - ML Medical Group Hep B, adolescent Hep B, adolescent Unknown Completed [place] or pediatric - ML or pediatric - ML Medical Group COVID-19, mRNA, COVID-19, mRNA, Unknown Completed Adryan ulloa LNP-S, PF, 30 LNP-S, PF, 30 Medical Group mcg/0.3 mL dose mcg/0.3 mL dose (Pfizer-BioNTech) - (Pfizer-BioNTech) - ML ML COVID-19, mRNA, COVID-19, mRNA, Unknown Completed Cornelius laila LNP-S, PF, 30 LNP-S, PF, 30 Medical Group mcg/0.3 mL dose mcg/0.3 mL dose (Pfizer-BioNTech) - (Pfizer-BioNTech) - ML ML influenza, influenza, Unknown Completed [place] injectable, injectable, Medical Grou p quadrivalent, quadrivalent, preservative free - preservative free - ML ML influenza, influenza, Unknown Completed [place] seasonal, seasonal, Medical Group injectable, injectable, preservative free - preservative free - ML ML Vital Signs Vital Name Observation Time Observation Value Comments Source Body Weight 2023-05-17 00:00:00 3688 [oz_av] [facility] BP Diastolic 2023-05-17 00:00:00 77 mm[Hg] [facility] Height 2023-05-17 00:00:00 71 [in_i] [facility] BMI (Body Mass 2023-05-17 00:00:00 32.1 kg/m2 [facility] Group BP Systolic 2023-05-17 00:00:00 121 mm[Hg] [facility] BP Diastolic 2022-11-25 00:00:00 82 mm[Hg] [facility] Height 2022-11-25 00:00:00 71 [in_i] [facility] BMI (Body Mass 2022-11-25 00:00:00 31.7 kg/m2 [facility] Group BP Systolic 2022-11-25 00:00:00 128 mm[Hg] [facility] Body Weight 2022-11-25 00:00:00 3632 [oz_av] [facility] height 2022-11-25 16:30:00 71 [in_i] [facility] weight 2022-11-25 16:30:00 225 [lb_av] [facility] temperature 2022-11-25 16:30:00 97.2 [degF] [facility] bmi 2022-11-25 16:30:00 31.38 kg/m2 [facility] oximetry 2022-11-25 16:30:00 99 % [facility] respiratory rate 2022-11-25 16:30:00 18 /min Comm on [facility] blood pressure 2022-11-25 16:30:00 119 mm[Hg] [facility] systolic [facility] blood pressure 2022-11-25 16:30:00 68 mm[Hg] [facility] diastolic [facility] BP Diastolic 2022-11-17 00:00:00 68 [facility]Hg] [facility] 2022-11-17 00:00:00 71 [in_i] [facility] BMI (Body Mass 2022-11-17 00:00:00 32 kg/m2 [facility] Group BP Systolic 2022-11-17 00:00:00 105 mm[Hg] [facility] Body Weight 2022-11-17 00:00:00 3673 [oz_av] [facility] height 2022-09-30 11:30:00 71 [in_i] [facility] weight 2022-09-30 11:30:00 231.4 [lb_av] [facility] temperature 2022-09-30 11:30:00 97.6 [degF] [facility] bmi 2022-09-30 11:30:00 32.27 kg/m2 [facility] oximetry 2022-09-30 11:30:00 96 % [facility] respiratory rate 2022-09-30 11:30:00 18 /min [facility] on [facility] blood pressure 2022-09-30 11:30:00 121 mm[Hg] [facility] - systolic [facility] blood pressure 2022-09-30 11:30:00 77 mm[Hg] [facility] - diastolic [facility] BP Diastolic 2022-06-25 00:00:00 84 mm[Hg] [facility] Height 2022-06-25 00:00:00 71 [in_i] [facility] BMI (Body Mass 2022-06-25 00:00:00 33.5 kg/m2 [facility] Group BP Systolic 2022-06-25 00:00:00 133 mm[Hg] [facility] Body Weight 2022-06-25 00:00:00 3848 [oz_av] [facility] BP Diastolic 2022-06-21 00:00:00 73 mm[Hg] [facility] Height 2022-06-21 00:00:00 71 [in_i] [facility] BMI (Body Mass 2022-06-21 00:00:00 34.4 kg/m2 [facility] Group BP Systolic 2022-06-21 00:00:00 112 mm[Hg] [facility] Body Weight 2022-06-21 00:00:00 3942 [oz_av] [facility] height 2022-05-19 10:30:00 71 [in_i] [facility] weight 2022-05-19 10:30:00 254.6 [lb_av] Common [facility] temperature 2022-05-19 10:30:00 97.6 [degF] Common [facility] bmi 2022-05-19 10:30:00 35.51 kg/m2 [facility] oximetry 2022-05-19 10:30:00 98 % [facility] respiratory rate 2022-05-19 10:30:00 18 /min [facility] blood pressure 2022-05-19 10:30:00 35 mm[Hg] Common [facility] - systolic [facility] blood pressure 2022-05-19 10:30:00 78 mm[Hg] [facility] - diastolic [facility] BP Diastolic 2022-03-09 00:00:00 77 mm[Hg] [facility] Height 2022-03-09 00:00:00 71 [in_i] [facility] BMI (Body Mass 2022-03-09 00:00:00 35.6 kg/m2 [facility] Group BP Systolic 2022-03-09 00:00:00 122 mm[Hg] [facility] Body Weight 2022-03-09 00:00:00 4078.4 [oz_av] [facility] BP Diastolic 2021-11-06 00:00:00 83 mm[Hg] [facility] Height 2021-11-06 00:00:00 71 [in_i] [facility] BMI (Body Mass 2021-11-06 00:00:00 35 kg/m2 [facility] Group BP Systolic 2021-11-06 00:00:00 127 mm[Hg] [facility] Body Weight 2021-11-06 00:00:00 4020 [oz_av] [facility] Height 2021-09-14 00:00:00 71 [in_i] [facility] BMI (Body Mass 2021-09-14 00:00:00 34.6 kg/m2 [facility] Group Body Weight 2021-09-14 00:00:00 3968 [oz_av] [facility] BP Diastolic 2021-03-26 00:00:00 75 mm[Hg] [facility] Height 2021-03-26 00:00:00 71 [in_i] [facility] BMI (Body Mass 2021-03-26 00:00:00 31.1 kg/m2 [facility] Group BP Systolic 2021-03-26 00:00:00 118 mm[Hg] [facility] Body Weight 2021-03-26 00:00:00 3569 [oz_av] [facility] BP Diastolic 2021-03-10 00:00:00 69 mm[Hg] [facility] Height 2021-03-10 00:00:00 71 [in_i] [facility] BMI (Body Mass 2021-03-10 00:00:00 30.8 kg/m2 [facility]) [facility] BP Systolic 2021-03-10 00:00:00 111 mm[Hg] [facility] Body Weight 2021-03-10 00:00:00 3529 [oz_av] [facility] BP Diastolic 2021-01-02 00:00:00 63 mm[Hg] [facility] Height 2021-01-02 00:00:00 71 [in_i] [facility] BMI (Body Mass 2021-01-02 00:00:00 30.3 kg/m2 [facility]) Group BP Systolic 2021-01-02 00:00:00 112 mm[Hg] [facility] Body Weight 2021-01-02 00:00:00 3481 [oz_av] [facility] BP Diastolic 2020-07-15 00:00:00 71 mm[Hg] [facility] Height 2020-07-15 00:00:00 71 [in_i] [facility] BMI (Body Mass 2020-07-15 00:00:00 29.7 kg/m2 [facility]) Group BP Systolic 2020-07-15 00:00:00 117 mm[Hg] [facility] Body Weight 2020-07-15 00:00:00 213 [lb_av] [facility] BP Diastolic 2020-07-14 00:00:00 71 mm[Hg] [facility] Height 2020-07-14 00:00:00 71 [in_i] [facility] BMI (Body Mass 2020-07-14 00:00:00 29.7 kg/m2 [facility]) Group BP Systolic 2020-07-14 00:00:00 117 mm[Hg] [facility] Body Weight 2020-07-14 00:00:00 3411 [oz_av] [facility] Height 2020-01-30 00:00:00 71 [in_i] [facility] BMI (Body Mass 2020-01-30 00:00:00 30 kg/m2 [facility] Body Weight 2020-01-30 00:00:00 3440 [oz_av] [facility] Systolic blood 2023-05-19 21:02:00 103 mm[Hg] [facility] Diastolic blood 2023-05-19 21:02:00 74 mm[Hg] [facility] Heart rate 2023-05-19 21:02:00 71 /min [facility] Oxygen saturation in 2023-05-19 21:02:00 96 /min [facility] Arterial blood by Pulse oximetry Body height 2023-05-19 18:26:00 180.3 cm [facility] Body weight 2023-05-19 18:26:00 104.327 kg [facility] BMI 2023-05-19 18:26:00 32.08 kg/m2 [facility] Respiratory rate 2023-05-19 18:25:00 16 /min [facility] Respiratory rate 2022-03-02 15:38:00 16 /min [facility] Oxygen saturation in 2022-03-02 15:38:00 97 /min [facility] Arterial blood by Pulse oximetry Systolic blood 2022-03-02 15:38:00 114 mm[Hg] [facility] pressure Diastolic blood 2022-03-02 15:38:00 67 mm[Hg] [facility] pressure Heart rate 2022-03-02 15:38:00 63 /min [facility] Body temperature 2022-03-02 15:30:00 36.33 Elle [facility] Body height 2022-03-01 15:26:00 180.3 cm [facility] Body weight 2022-03-01 15:26:00 115.123 kg [facility] BMI 2022-03-01 15:26:00 35.40 kg/m2 [facility] Procedures Procedure Date / Time Performing Clinician Source Performed CT POST MYELOGRAM LUMBAR 2023-05-19 21:20:41 [place] [facility] IR MYELOGRAM LUMB INCL 2023-05-19 20:07:00 [facility] INJ W S&I XR LUMBAR SPINE 2 OR 3 VW 2023-04-15 15:06:26 [facility] US, scrotum 2022-11-17 00:00:00 [facility] US, duplex, penis, 2022-03-09 00:00:00 [facility] Group OR [place] < 1 HOUR 2022-03-02 18:31:17 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 2022-03-02 13:31:57 Alfreda Duvall [facility] SPINAE DC AN ELECTIVE 2022-03-02 12:35:00 [facility] LAMINECTOMY, LUMBAR 2022-03-02 12:29:00 Maynor Romero [facility] POC GLUCOSE 2022-03-02 11:43:00 [facility] Back Surgery 2022-03-02 00:00:00 [facility] XR CHEST 2 VW 2022-03-01 17:28:02 [facility] ECG PRE/POST OP 2022-03-01 16:38:21 [facility] HEMOGLOBIN A1C 2022-03-01 16:18:00 [facility] COVID-19 QUALITATIVE 2022-03-01 15:48:00 [facility] RT-PCR CBC WITH PLATELET AND 2022-03-01 15:48:00 Maynor Romero [facility] DIFFERENTIAL PARTIAL THROMBOPLASTIN 2022-03-01 15:48:00 Maynor Romero [facility] TIME (PTT) PROTHROMBIN TIME WITH INR 2022-03-01 15:48:00 Maynor Romero [facility] CT POST MYELOGRAM LUMBAR 2022-02-25 18:14:57 [facility] IR MYELOGRAM LUMB INCL 2022-02-25 17:55:00 [facility] INJ W S&I COVID-19 QUALITATIVE 2022-02-24 22:40:00 [facility] RT-PCR COMPREHENSIVE METABOLIC 2022-02-24 22:40:00 [facility] CBC WITH PLATELET AND 2022-02-24 22:40:00 [facility] DIFFERENTIAL TROPONIN T 2022-02-24 22:40:00 [facility] B NATRIURETIC PEPTIDE 2022-02-24 22:40:00 [facility] ESTIMATED GFR 2022-02-24 22:40:00 [facility] GENERAL 2022-02-24 22:27:14 [facility] CT SPINE EXTERNAL STUDY 2022-02-12 16:40:33 Maynor Romero [facility] XR ABDOMEN 2 VW AP W 2021-12-18 16:48:33 [facility] UPRIGHT AND/OR DECUBITUS XR LUMBAR SPINE COMPLETE 2021-12-18 15:33:23 Maynor Romero [facility] W BENDING XR SPINE EXTERNAL STUDY 2021-08-10 17:26:30 Maynor Romero [facility] XR, lumbar spine 2021-03-10 00:00:00 [facility] Plan of Care Planned Activity Planned Date Details Comments Source Future Scheduled Test 2023-06-02 Pneumococcal Vaccine: [facility] 16:20:03 Pediatrics (0 to 5 Years) and At-Risk Patients (6 to 64 Years) (1 - PCV) [code = Pneumococcal Vaccine: Pediatrics (0 to 5 Years) and At-Risk Patients (6 to 64 Years) (1 - PCV)] Future Scheduled Test 2023-06-02 Hepatitis C screening [facility] 16:20:03 (procedure) [code = [id number]] Future Scheduled Test 2023-06-02 COVID-19 VACCINE (3 - [facility] 16:20:03 season) [code = COVID-19 VACCINE ( - season)] Future Scheduled Test 2023-05-30 Pneumococcal Vaccine: [facility] 16:58:25 Pediatrics (0 to 5 Years) and At-Risk Patients (6 to 64 Years) (1 - PCV) [code = Pneumococcal Vaccine: Pediatrics (0 to 5 Years) and At-Risk Patients (6 to 64 Years) (1 - PCV)] Future Scheduled Test 2023-05-30 Hepatitis C screening [facility] 16:58:25 (procedure) [code = [id number]] Future Scheduled Test 2023-05-30 COVID-19 VACCINE ([address] [place] [id number] 16:58:25 season) [code = COVID-19 VACCINE ( season)] Future Scheduled Test 2023-05-21 Pneumococcal Vaccine: [facility] 03:32:24 Pediatrics (0 to 5 Years) and At-Risk Patients (6 to 64 Years) (1 - PCV) [code = Pneumococcal Vaccine: Pediatrics (0 to 5 Years) and At-Risk Patients (6 to 64 Years) (1 - PCV)] Future Scheduled Test 2023-05-21 Hepatitis C screening [facility] 03:32:24 (procedure) [code = [id number]] Future Scheduled Test 2023-05-21 COVID-19 VACCINE ([address] [place] [id number] 03:32:24 season) [code = COVID-19 VACCINE ()] Future Scheduled Test 2023-02-14 Pneumococcal Vaccine: [facility] 07:55:29 Pediatrics (0 to 5 Years) and At-Risk Patients (6 to 64 Years) (1 - PCV) [code = Pneumococcal Vaccine: Pediatrics (0 to 5 Years) and At-Risk Patients (6 to 64 Years) (1 - PCV)] Future Scheduled Test 2023-02-14 Hepatitis C screening [facility] 07:55:29 (procedure) [code = [id number]] Future Scheduled Test 2023-02-14 COVID-19 VACCINE ([address] [place] [address] 07:55:29 Pfizer series) [code = COVID-19 VACCINE (3 - Pfizer series)] Future Scheduled Test 2023-02-14 INFLUENZA VACCINE [facility] 07:55:29 [code = INFLUENZA VACCINE] Future Scheduled Test 2022-12-27 Pneumococcal Vaccine: [facility] 14:16:08 Pediatrics (0 to 5 Years) and At-Risk Patients (6 to 64 Years) (1 - PCV) [code = Pneumococcal Vaccine: Pediatrics (0 to 5 Years) and At-Risk Patients (6 to 64 Years) (1 - PCV)] Future Scheduled Test 2022-12-27 Hepatitis C screening [facility] 14:16:08 (procedure) [code = [id number]] Future Scheduled Test 2022-12-27 COVID-19 VACCINE ([address] [place] [address] 14:16:08 Pfizer series) [code = COVID-19 VACCINE (3 - Pfizer series)] Future Scheduled Test 2022-12-27 INFLUENZA VACCINE [facility] 14:16:08 [code = INFLUENZA VACCINE] Future Scheduled Test 2022-12-27 Pneumococcal Vaccine: [facility] 14:16:08 Pediatrics (0 to 5 Years) and At-Risk Patients (6 to 64 Years) (1 - PCV) [code = Pneumococcal Vaccine: Pediatrics (0 to 5 Years) and At-Risk Patients (6 to 64 Years) (1 - PCV)] Future Scheduled Test 2022-12-27 Hepatitis C screening [facility] 14:16:08 (procedure) [code = [id number]] Future Scheduled Test 2022-12-27 COVID-19 VACCINE ([address] [place] [address] 14:16:08 Pfizer series) [code = COVID-19 VACCINE (3 - Pfizer series)] Future Scheduled Test 2022-12-27 INFLUENZA VACCINE [facility] 14:16:08 [code = INFLUENZA VACCINE] Diagnostic Test [...] Diagnostic Test 2022-11-17 lipid panel, serum [facility]ending 00:00:00 [code = lipid panel, Group serum] Future Scheduled Test 2022-10-26 Pneumococcal Vaccine: [facility] 12:10:59 Pediatrics (0 to 5 Years) and At-Risk Patients (6 to 64 Years) (1 - PCV) [code = Pneumococcal Vaccine: Pediatrics (0 to 5 Years) and At-Risk Patients (6 to 64 Years) (1 - PCV)] Future Scheduled Test 2022-10-26 Hepatitis C screening [facility] 12:10:59 (procedure) [code = [id number]] Future Scheduled Test 2022-10-26 COVID-19 VACCINE ([address] [place] [address] 12:10:59 Booster for Pfizer series) [code = COVID-19 VACCINE (3 - Booster for Pfizer series)] Future Scheduled Test 2022-10-26 INFLUENZA VACCINE [facility] 12:10:59 [code = INFLUENZA VACCINE] Future Scheduled Test 2022-10-26 Pneumococcal Vaccine: [facility] 12:10:59 Pediatrics (0 to 5 Years) and At-Risk Patients (6 to 64 Years) (1 - PCV) [code = Pneumococcal Vaccine: Pediatrics (0 to 5 Years) and At-Risk Patients (6 to 64 Years) (1 - PCV)] Future Scheduled Test 2022-10-26 Hepatitis C screening [facility] 12:10:59 (procedure) [code = [id number]] Future Scheduled Test 2022-10-26 COVID-19 VACCINE ([address] [place] [address] 12:10:59 Booster for Pfizer series) [code = COVID-19 VACCINE (3 - Booster for Pfizer series)] Future Scheduled Test 2022-10-26 INFLUENZA VACCINE [facility] 12:10:59 [code = INFLUENZA VACCINE] Future Scheduled Test 2022-10-26 Pneumococcal Vaccine: [facility] 12:10:59 Pediatrics (0 to 5 Years) and At-Risk Patients (6 to 64 Years) (1 - PCV) [code = Pneumococcal Vaccine: Pediatrics (0 to 5 Years) and At-Risk Patients (6 to 64 Years) (1 - PCV)] Future Scheduled Test 2022-10-26 Hepatitis C screening [facility] 12:10:59 (procedure) [code = [id number]] Future Scheduled Test 2022-10-26 COVID-19 VACCINE ([address] [place] [address] 12:10:59 Booster for Pfizer series) [code = COVID-19 VACCINE (3 - Booster for Pfizer series)] Future Scheduled Test 2022-10-26 INFLUENZA VACCINE [facility] 12:10:59 [code = INFLUENZA VACCINE] Future Scheduled Test 2022-10-26 Pneumococcal Vaccine: [facility] 12:10:59 Pediatrics (0 to 5 Years) and At-Risk Patients (6 to 64 Years) (1 - PCV) [code = Pneumococcal Vaccine: Pediatrics (0 to 5 Years) and At-Risk Patients (6 to 64 Years) (1 - PCV)] Future Scheduled Test 2022-10-26 Hepatitis C screening [facility] 12:10:59 (procedure) [code = [id number]] Future Scheduled Test 2022-10-26 COVID-19 VACCINE ([address] [place] [address] 12:10:59 Booster for Pfizer series) [code = COVID-19 VACCINE (3 - Booster for Pfizer series)] Future Scheduled Test 2022-10-26 INFLUENZA VACCINE [facility] 12:10:59 [code = INFLUENZA VACCINE] Future Scheduled Test 2022-10-12 Pneumococcal Vaccine: [facility] 03:52:45 Pediatrics (0 to 5 Years) and At-Risk Patients (6 to 64 Years) (1 - PCV) [code = Pneumococcal Vaccine: Pediatrics (0 to 5 Years) and At-Risk Patients (6 to 64 Years) (1 - PCV)] Future Scheduled Test 2022-10-12 Hepatitis C screening [facility] 03:52:45 (procedure) [code = [id number]] Future Scheduled Test 2022-10-12 COVID-19 VACCINE ([address] [place] [address] 03:52:45 Booster for Pfizer series) [code = COVID-19 VACCINE (3 - Booster for Pfizer series)] Future Scheduled Test 2022-10-12 INFLUENZA VACCINE [facility] 03:52:45 [code = INFLUENZA VACCINE] Future Scheduled Test 2022-10-12 Pneumococcal Vaccine: [facility] 03:52:45 Pediatrics (0 to 5 Years) and At-Risk Patients (6 to 64 Years) (1 - PCV) [code = Pneumococcal Vaccine: Pediatrics (0 to 5 Years) and At-Risk Patients (6 to 64 Years) (1 - PCV)] Future Scheduled Test 2022-10-12 Hepatitis C screening [facility] 03:52:45 (procedure) [code = [id number]] Future Scheduled Test 2022-10-12 COVID-19 VACCINE ([address] [place] [address] 03:52:45 Booster for Pfizer series) [code = COVID-19 VACCINE (3 - Booster for Pfizer series)] Future Scheduled Test 2022-10-12 INFLUENZA VACCINE [facility] 03:52:45 [code = INFLUENZA VACCINE] Future Scheduled Test 2022-10-12 Pneumococcal Vaccine: [facility] 03:52:45 Pediatrics (0 to 5 Years) and At-Risk Patients (6 to 64 Years) (1 - PCV) [code = Pneumococcal Vaccine: Pediatrics (0 to 5 Years) and At-Risk Patients (6 to 64 Years) (1 - PCV)] Future Scheduled Test 2022-10-12 Hepatitis C screening [facility] 03:52:45 (procedure) [code = [id number]] Future Scheduled Test 2022-10-12 COVID-19 VACCINE ([address] [place] [address] 03:52:45 Booster for Pfizer series) [code = COVID-19 VACCINE (3 - Booster for Pfizer series)] Future Scheduled Test 2022-10-12 INFLUENZA VACCINE [facility] 03:52:45 [code = INFLUENZA VACCINE] Future Scheduled Test 2022-09-07 Pneumococcal Vaccine: [facility] 19:21:49 Pediatrics (0 to 5 Years) and At-Risk Patients (6 to 64 Years) (1 - PCV) [code = Pneumococcal Vaccine: Pediatrics (0 to 5 Years) and At-Risk Patients (6 to 64 Years) (1 - PCV)] Future Scheduled Test 2022-09-07 Hepatitis C screening [facility] 19:21:49 (procedure) [code = [id number]] Future Scheduled Test 2022-09-07 COVID-19 VACCINE ([address] [place] [address] 19:21:49 Booster for Pfizer series) [code = COVID-19 VACCINE (3 - Booster for Pfizer series)] Future Scheduled Test 2022-09-07 INFLUENZA VACCINE [facility] 19:21:49 [code = INFLUENZA VACCINE] Future Scheduled Test 2022-09-07 Pneumococcal Vaccine: [facility] 19:21:49 Pediatrics (0 to 5 Years) and At-Risk Patients (6 to 64 Years) (1 - PCV) [code = Pneumococcal Vaccine: Pediatrics (0 to 5 Years) and At-Risk Patients (6 to 64 Years) (1 - PCV)] Future Scheduled Test 2022-09-07 Hepatitis C screening [facility] 19:21:49 (procedure) [code = [id number]] Future Scheduled Test 2022-09-07 COVID-19 VACCINE ([address] [place] [address] 19:21:49 Booster for Pfizer series) [code = COVID-19 VACCINE (3 - Booster for Pfizer series)] Future Scheduled Test 2022-09-07 INFLUENZA VACCINE [facility] 19:21:49 [code = INFLUENZA VACCINE] Future Scheduled Test 2022-09-07 Pneumococcal Vaccine: [facility] 19:21:49 Pediatrics (0 to 5 Years) and At-Risk Patients (6 to 64 Years) (1 - PCV) [code = Pneumococcal Vaccine: Pediatrics (0 to 5 Years) and At-Risk Patients (6 to 64 Years) (1 - PCV)] Future Scheduled Test 2022-09-07 Hepatitis C screening [facility] 19:21:49 (procedure) [code = [id number]] Future Scheduled Test 2022-09-07 COVID-19 VACCINE ([address] [place] [address] 19:21:49 Booster for Pfizer series) [code = COVID-19 VACCINE (3 - Booster for Pfizer series)] Future Scheduled Test 2022-09-07 INFLUENZA VACCINE [facility] 19:21:49 [code = INFLUENZA VACCINE] Future Scheduled Test 2022-09-07 Pneumococcal Vaccine: [facility] 19:21:49 Pediatrics (0 to 5 Years) and At-Risk Patients (6 to 64 Years) (1 - PCV) [code = Pneumococcal Vaccine: Pediatrics (0 to 5 Years) and At-Risk Patients (6 to 64 Years) (1 - PCV)] Future Scheduled Test 2022-09-07 Hepatitis C screening [facility] 19:21:49 (procedure) [code = [id number]] Future Scheduled Test 2022-09-07 COVID-19 VACCINE ([address] [place] [address] 19:21:49 Booster for Pfizer series) [code = COVID-19 VACCINE (3 - Booster for Pfizer series)] Future Scheduled Test 2022-09-07 INFLUENZA VACCINE [facility] 19:21:49 [code = INFLUENZA VACCINE] Future Scheduled Test 2022-06-26 Pneumococcal Vaccine: [facility] 18:09:46 Pediatrics (0 to 5 Years) and At-Risk Patients (6 to 64 Years) (1 - PCV) [code = Pneumococcal Vaccine: Pediatrics (0 to 5 Years) and At-Risk Patients (6 to 64 Years) (1 - PCV)] Future Scheduled Test 2022-06-26 Hepatitis C screening [facility] 18:09:46 (procedure) [code = [id number]] Future Scheduled Test 2022-06-26 COVID-19 VACCINE ([address] [place] [address] 18:09:46 Booster for Pfizer series) [code = COVID-19 VACCINE (3 - Booster for Pfizer series)] Future Scheduled Test 2022-06-26 INFLUENZA VACCINE [facility] 18:09:46 [code = INFLUENZA VACCINE] Future Scheduled Test 2022-06-26 Pneumococcal Vaccine: [facility] 18:09:46 Pediatrics (0 to 5 Years) and At-Risk Patients (6 to 64 Years) (1 - PCV) [code = Pneumococcal Vaccine: Pediatrics (0 to 5 Years) and At-Risk Patients (6 to 64 Years) (1 - PCV)] Future Scheduled Test 2022-06-26 Hepatitis C screening [facility] 18:09:46 (procedure) [code = [id number]] Future Scheduled Test 2022-06-26 COVID-19 VACCINE ([address] [place] [address] 18:09:46 Booster for Pfizer series) [code = COVID-19 VACCINE (3 - Booster for Pfizer series)] Future Scheduled Test 2022-06-26 INFLUENZA VACCINE [facility] 18:09:46 [code = INFLUENZA VACCINE] Future Scheduled Test 2022-05-20 Pneumococcal Vaccine: [facility] 09:23:23 Pediatrics (0 to 5 Years) and At-Risk Patients (6 to 64 Years) (1 - PCV) [code = Pneumococcal Vaccine: Pediatrics (0 to 5 Years) and At-Risk Patients (6 to 64 Years) (1 - PCV)] Future Scheduled Test 2022-05-20 Hepatitis C screening [facility] 09:23:23 (procedure) [code = [id number]] Future Scheduled Test 2022-05-20 COVID-19 VACCINE ([address] [place] [address] 09:23:23 Booster for Pfizer series) [code = COVID-19 VACCINE (3 - Booster for Pfizer series)] Future Scheduled Test 2022-05-20 INFLUENZA VACCINE [facility] 09:23:23 [code = INFLUENZA VACCINE] Future Scheduled Test 2022-05-20 Pneumococcal Vaccine: [facility] 09:23:23 Pediatrics (0 to 5 Years) and At-Risk Patients (6 to 64 Years) (1 - PCV) [code = Pneumococcal Vaccine: Pediatrics (0 to 5 Years) and At-Risk Patients (6 to 64 Years) (1 - PCV)] Future Scheduled Test 2022-05-20 Hepatitis C screening [facility] 09:23:23 (procedure) [code = [id number]] Future Scheduled Test 2022-05-20 COVID-19 VACCINE ([address] [place] [address] 09:23:23 Booster for Pfizer series) [code = COVID-19 VACCINE (3 - Booster for Pfizer series)] Future Scheduled Test 2022-05-20 INFLUENZA VACCINE [facility] 09:23:23 [code = INFLUENZA VACCINE] Future Scheduled Test 2022-05-20 Pneumococcal Vaccine: [facility] 09:23:23 Pediatrics (0 to 5 Years) and At-Risk Patients (6 to 64 Years) (1 - PCV) [code = Pneumococcal Vaccine: Pediatrics (0 to 5 Years) and At-Risk Patients (6 to 64 Years) (1 - PCV)] Future Scheduled Test 2022-05-20 Hepatitis C screening [facility] 09:23:23 (procedure) [code = [id number]] Future Scheduled Test 2022-05-20 COVID-19 VACCINE ([address] [place] [address] 09:23:23 Booster for Pfizer series) [code = COVID-19 VACCINE (3 - Booster for Pfizer series)] Future Scheduled Test 2022-05-20 INFLUENZA VACCINE [facility] 09:23:23 [code = INFLUENZA VACCINE] Future Scheduled Test 2022-05-20 Pneumococcal Vaccine: [facility] 09:23:23 Pediatrics (0 to 5 Years) and At-Risk Patients (6 to 64 Years) (1 - PCV) [code = Pneumococcal Vaccine: Pediatrics (0 to 5 Years) and At-Risk Patients (6 to 64 Years) (1 - PCV)] Future Scheduled Test 2022-05-20 Hepatitis C screening [facility] 09:23:23 (procedure) [code = [id number]] Future Scheduled Test 2022-05-20 COVID-19 VACCINE ([address] [place] [address] 09:23:23 Booster for Pfizer series) [code = COVID-19 VACCINE (3 - Booster for Pfizer series)] Future Scheduled Test 2022-05-20 INFLUENZA VACCINE [facility] 09:23:23 [code = INFLUENZA VACCINE] Future Scheduled Test 2022-05-20 Pneumococcal Vaccine: [facility] 09:23:23 Pediatrics (0 to 5 Years) and At-Risk Patients (6 to 64 Years) (1 - PCV) [code = Pneumococcal Vaccine: Pediatrics (0 to 5 Years) and At-Risk Patients (6 to 64 Years) (1 - PCV)] Future Scheduled Test 2022-05-20 Hepatitis C screening [facility] 09:23:23 (procedure) [code = [id number]] Future Scheduled Test 2022-05-20 COVID-19 VACCINE ([address] [place] [address] 09:23:23 Booster for Pfizer series) [code = COVID-19 VACCINE (3 - Booster for Pfizer series)] Future Scheduled Test 2022-05-20 INFLUENZA VACCINE [facility] 09:23:23 [code = INFLUENZA VACCINE] Future Scheduled Test 2022-05-20 Pneumococcal Vaccine: [facility] 09:23:23 Pediatrics (0 to 5 Years) and At-Risk Patients (6 to 64 Years) (1 - PCV) [code = Pneumococcal Vaccine: Pediatrics (0 to 5 Years) and At-Risk Patients (6 to 64 Years) (1 - PCV)] Future Scheduled Test 2022-05-20 Hepatitis C screening [facility] 09:23:23 (procedure) [code = [id number]] Future Scheduled Test 2022-05-20 COVID-19 VACCINE ([address] [place] [address] 09:23:23 Booster for Pfizer series) [code = COVID-19 VACCINE (3 - Booster for Pfizer series)] Future Scheduled Test 2022-05-20 INFLUENZA VACCINE [facility] 09:23:23 [code = INFLUENZA VACCINE] Future Scheduled Test 2022-05-11 Pneumococcal Vaccine: [facility] 07:01:06 Pediatrics (0 to 5 Years) and At-Risk Patients (6 to 64 Years) (1 - PCV) [code = Pneumococcal Vaccine: Pediatrics (0 to 5 Years) and At-Risk Patients (6 to 64 Years) (1 - PCV)] Future Scheduled Test 2022-05-11 Hepatitis C screening [facility] 07:01:06 (procedure) [code = [id number]] Future Scheduled Test 2022-05-11 COVID-19 VACCINE ([address] [place] [address] 07:01:06 Booster for Pfizer series) [code = COVID-19 VACCINE (3 - Booster for Pfizer series)] Future Scheduled Test 2022-05-11 INFLUENZA VACCINE [facility] 07:01:06 [code = INFLUENZA VACCINE] Future Scheduled Test 2022-05-11 Pneumococcal Vaccine: [facility] 07:01:06 Pediatrics (0 to 5 Years) and At-Risk Patients (6 to 64 Years) (1 - PCV) [code = Pneumococcal Vaccine: Pediatrics (0 to 5 Years) and At-Risk Patients (6 to 64 Years) (1 - PCV)] Future Scheduled Test 2022-05-11 Hepatitis C screening [facility] 07:01:06 (procedure) [code = 808726538] Future Scheduled Test 2022-05-11 COVID-19 VACCINE ([address] [place] [address] 07:01:06 Booster for Pfizer series) [code = COVID-19 VACCINE (3 - Booster for Pfizer series)] Future Scheduled Test 2022-05-11 INFLUENZA VACCINE [facility] 07:01:06 [code = INFLUENZA VACCINE] Future Scheduled Test 2022-04-23 Pneumococcal Vaccine: [facility] 15:05:55 Pediatrics (0 to 5 Years) and At-Risk Patients (6 to 64 Years) (1 - PCV) [code = Pneumococcal Vaccine: Pediatrics (0 to 5 Years) and At-Risk Patients (6 to 64 Years) (1 - PCV)] Future Scheduled Test 2022-04-23 Hepatitis C screening [facility] 15:05:55 (procedure) [code = 681797774] Future Scheduled Test 2022-04-23 COVID-19 VACCINE ([address] [place] [address] 15:05:55 Booster for Pfizer series) [code = COVID-19 VACCINE (3 - Booster for Pfizer series)] Future Scheduled Test 2022-04-23 INFLUENZA VACCINE [facility] 15:05:55 [code = INFLUENZA VACCINE] Future Scheduled Test 2022-03-19 Pneumococcal Vaccine: [facility] 14:05:17 Pediatrics (0 to 5 Years) and At-Risk Patients (6 to 64 Years) (1 - PCV) [code = Pneumococcal Vaccine: Pediatrics (0 to 5 Years) and At-Risk Patients (6 to 64 Years) (1 - PCV)] Future Scheduled Test 2022-03-19 Hepatitis C screening [facility] 14:05:17 (procedure) [code = [id number]] Future Scheduled Test 2022-03-19 COVID-19 VACCINE ([address] [place] [address] 14:05:17 Booster for Pfizer series) [code = COVID-19 VACCINE (3 - Booster for Pfizer series)] Future Scheduled Test 2022-03-19 INFLUENZA VACCINE [facility] 14:05:17 [code = INFLUENZA VACCINE] Future Scheduled Test 2022-03-19 Pneumococcal Vaccine: [facility] 14:05:17 Pediatrics (0 to 5 Years) and At-Risk Patients (6 to 64 Years) (1 - PCV) [code = Pneumococcal Vaccine: Pediatrics (0 to 5 Years) and At-Risk Patients (6 to 64 Years) (1 - PCV)] Future Scheduled Test 2022-03-19 Hepatitis C screening [facility] 14:05:17 (procedure) [code = [id number]] Future Scheduled Test 2022-03-19 COVID-19 VACCINE ([address] [place] [address] 14:05:17 Booster for Pfizer series) [code = COVID-19 VACCINE (3 - Booster for Pfizer series)] Future Scheduled Test 2022-03-19 INFLUENZA VACCINE [facility] 14:05:17 [code = INFLUENZA VACCINE] Future Scheduled Test 2022-03-06 Pneumococcal Vaccine: [facility] 19:05:17 Pediatrics (0 to 5 Years) and At-Risk Patients (6 to 64 Years) (1 - PCV) [code = Pneumococcal Vaccine: Pediatrics (0 to 5 Years) and At-Risk Patients (6 to 64 Years) (1 - PCV)] Future Scheduled Test 2022-03-06 Hepatitis C screening [facility] 19:05:17 (procedure) [code = 124461581] Future Scheduled Test 2022-03-06 COVID-19 VACCINE ([address] [place] [address] 19:05:17 Booster for Pfizer series) [code = COVID-19 VACCINE (3 - Booster for Pfizer series)] Future Scheduled Test 2022-03-06 INFLUENZA VACCINE [facility] 19:05:17 [code = INFLUENZA VACCINE] Future Scheduled Test 2022-03-06 Pneumococcal Vaccine: [facility] 19:05:17 Pediatrics (0 to 5 Years) and At-Risk Patients (6 to 64 Years) (1 - PCV) [code = Pneumococcal Vaccine: Pediatrics (0 to 5 Years) and At-Risk Patients (6 to 64 Years) (1 - PCV)] Future Scheduled Test 2022-03-06 Hepatitis C screening [facility] 19:05:17 (procedure) [code = 595081291] Future Scheduled Test 2022-03-06 COVID-19 VACCINE ([address] [place] [address] 19:05:17 Booster for Pfizer series) [code = COVID-19 VACCINE (3 - Booster for Pfizer series)] Future Scheduled Test 2022-03-06 INFLUENZA VACCINE [facility] 19:05:17 [code = INFLUENZA VACCINE] Future Scheduled Test 2022-03-06 Pneumococcal Vaccine: [facility] 19:05:17 Pediatrics (0 to 5 Years) and At-Risk Patients (6 to 64 Years) (1 - PCV) [code = Pneumococcal Vaccine: Pediatrics (0 to 5 Years) and At-Risk Patients (6 to 64 Years) (1 - PCV)] Future Scheduled Test 2022-03-06 Hepatitis C screening [facility] 19:05:17 (procedure) [code = 800756001] Future Scheduled Test 2022-03-06 COVID-19 VACCINE ([address] [place] [address] 19:05:17 Booster for Pfizer series) [code = COVID-19 VACCINE (3 - Booster for Pfizer series)] Future Scheduled Test 2022-03-06 INFLUENZA VACCINE [facility] 19:05:17 [code = INFLUENZA VACCINE] Future Scheduled Test 2022-03-06 Pneumococcal Vaccine: [facility] 19:05:17 Pediatrics (0 to 5 Years) and At-Risk Patients (6 to 64 Years) (1 - PCV) [code = Pneumococcal Vaccine: Pediatrics (0 to 5 Years) and At-Risk Patients (6 to 64 Years) (1 - PCV)] Future Scheduled Test 2022-03-06 Hepatitis C screening [facility] 19:05:17 (procedure) [code = 277515324] Future Scheduled Test 2022-03-06 COVID-19 VACCINE ([address] [place] [address] 19:05:17 Booster for Pfizer series) [code = COVID-19 VACCINE (3 - Booster for Pfizer series)] Future Scheduled Test 2022-03-06 INFLUENZA VACCINE [facility] 19:05:17 [code = INFLUENZA VACCINE] Future Appointment 2023-11-[address] 00:00:00 Alfredotorie YoungCorwin , [place] Group [address] Instructions [facility] Encounters Start End Encounter Admission Attending Care Care Encounter Source Date/Time Date/Time Type Type Clinicians Facility Department ID 2023-05-20 Inpatient TEXANA TEXANA [id number] [place] 15:00:44 [address]78 [place] 2023-03-10 Inpatient TEXANA TEXANA [id number] [place] 23:11:08 48490 [place] 2022-08-26 [facility] [id number] Common 10:40:02 Ronnell 36708 [facility] 2022-08-09 Inpatient TEXANA TEXANA [id number] [place] 16:07:58 38848 [place] 2022-06-18 Inpatient YASMEEN KHANNA [facility] [id number] [place] 08:00:00 [id number] Critical access hospital 2022-06-11 Inpatient YASMEEN KHANNA [facility] [id number] [place] 08:00:00 [id number] Critical access hospital 2022-06-08 Inpatient TEXANA TEXANA [id number] [place] 11:16:57 90044 [place] 2022-05-31 Inpatient TEXANA TEXANA [id number] [place] 12:03:56 [id number] [place] 2022-05-19 [facility] [id number] Common 09:43:04 Ronnell 99048 [facility] 2022-05-03 Inpatient YASMEEN ROMERO [facility] [id number] [place] 09:00:00 [id number] Critical access hospital 2022-03-23 Inpatient TEXANA TEXANA [id number] [place] 11:21:45 [address]23 [place] 2023-05-20 2023-05-20 Telephone Christa Douglas2.840.1 [id number] 21 [id number] Methodi 00:00:00 00:00:[address] 3.430.2.7 Hospit a .3.882087 l .8 2023-05-20 2023-05-20 Telephone Christa Douglas2.840.1 [id number] 21 [id number] Methodi 00:00:00 00:00:[address] 3.430.2.7 Hospit a .3.934449 l .8 2023-05-19 2023-05-19 [facility], 1.2.840.1 [id number] Methodi 11:53:47 23:59:00 Encounter Maynor Sánchez 12526.1.[address] 3.430.2.7 Hospit a .3.908320 l .8 2023-05-19 2023-05-19 [facility], 1.2.840.1 [id number] 41022 Methodi 11:53:47 23:59:00 Encounter Maynor Sánchez 42442.1.[address] 3.430.2.7 Hospit a .3.539351 l .8 2023-05-19 2023-05-19 [facility] Asked, No Pcp 1.2.840.1 [id number] Methodi 11:53:35 23:59:00 Encounter Maynor Romero 32689.1.[address] 3.430.2.7 Hospit a .3.956510 l .8 2023-05-19 2023-05-19 Hospital Asked, No Pcp 1.2.840.1 [id number] Methodi 11:53:35 23:59:00 Encounter Maynor Romero 95222.1.[address] 3.430.2.7 Hospit a .3.825866 l .8 2023-05-17 2023-05-17 [facility] [place] - [id number] [place] 00:00:00 00:00:00 Aracelis Klein Medical : [address] [place] [address] tono , Ph. Practice 2023-05-16 2023-05-16 Outpatient Bonita [facility] [id number]- 2022 [place] 00:00:00 00:00:00 1106 [facility] 2023-05-16 2023-05-16 Outpatient Zuniga_F [facility] [id number] [place] 00:00:00 00:00:00 1107 [facility] 2023-05-12 2023-05-12 [facility], 1.2.840.1 [id number] Methodi 11:10:16 23:59:00 Encounter Maynor CrisJuan José 57445.1.[address] 3.430.2.7 Hospit a .3.244662 l .8 2023-05-12 2023-05-12 [facility], 1.2.840.1 [id number] Methodi 11:10:16 23:59:00 Encounter Maynor CrisJuan José 82964.1.[address] 3.430.2.7 Hospit a .3.739168 l .8 2023-05-12 2023-05-12 Orders Dejah, 1.2.840.1 [id number] 2100 [id number] Methodi 00:00:00 00:00:00 Only Rich 85100.1.[address] 3.430.2.7 Hospit a .3.055925 l .8 2023-05-12 2023-05-12 Orders Dejah, 1.2.840.1 [id number] 2100 [id number] Methodi 00:00:00 00:00:00 Only Rich 30955.1.[address] 3.430.2.7 Hospit a .3.737386 l .8 2023-04-15 2023-04-15 Office Dejah, 1.2.840.1 [id number] 2100 [id number] Methodi 10:00:00 11:02:26 Visit Rich 40272.1.[address] 3.430.2.7 Hospit a .3.383169 l .8 2023-04-15 2023-04-15 Office Dejah, 1.2.840.1 [id number] 2099 [id number] Methodi 10:00:00 11:02:26 Visit Rich 35600.1.[address] 3.430.2.7 Hospit a .3.591991 l .8 2023-04-15 2023-04-15 Outpatient [facility] [id number] [place] 00:00:00 00:00:[address] 2022-12-21 2023-01-07 Outpatient YASMEEN POND, [facility] [id number] [place] 15:14:00 00:01:00 RICH -[id number] Critical access hospital 2022-12-03 2022-12-03 Inpatient YASMEEN POND, [facility] [id number] [place] 14:00:00 08:18:00 RICH -[id number] Critical access hospital 2022-11-25 2022-11-25 Outpatient Hawkins_M [facility] [id number] -2022 [place] 00:00:00 00:00:00 0518 [facility] 2022-11-25 2022-11-25 Outpatient Hawkins_M [facility] [id number] -2022 [place] 00:00:00 00:00:00 1030 [facility] 2022-11-25 2022-11-25 Susan [facility] [place] - [id number] M atagor 00:00:00 00:00:00 Alma Martinez Medical Medical FAMILY ENGAGEMENT SPECIALIST: [address] [place] [address] [address], [place] [address] , Ph. 2022-11-25 2022-11-25 OFFICE [facility] ST[facility] [id number] Co mmon 00:00:00 00:00:00 VISIT Spirit ESTAB PT - CHI LEVEL 4 [facility] 2022-11-19 2022-11-19 Outpatient ZAFAR Diaz, [facility] [id number] [place] 08:55:00 08:55:00 Ronnell -[id number] perry [facility] 2022-11-17 2022-11-17 Ronnell [facility] [place] - [id number] [place] 00:00:00 00:00:00 Micky Lozano Medical Medical MD: [address] [facility] [place] [address], [place] [address] , Ph. 2022-10-19 2022-10-19 Emergency ER JOEL, [facility] [id number] [id number] [place] 03:22:00 05:40:00 BRENDA -[id number] Critical access hospital 2022-09-30 2022-09-30 OFFICE STLMLC STLMLC [id number] Co mmon 00:00:00 00:00:00 VISIT [facility] PT - CHI LEVEL 4 [facility] 2022-09-07 2022-09-07 Telephone Duc, 1.2.840.1 [id number] 2099 [id number] Methodi 00:00:00 00:00:[address] 3.430.2.7 Hospit a .3.980783 l .8 2022-09-07 2022-09-07 Telephone Duc, 1.2.840.1 [id number] 2099 [id number] Methodi 00:00:00 00:00:[address] 3.430.2.7 Hospit a .3.955567 l .8 2022-08-26 2022-08-26 (TEL) STLMLC STLC [id number] Co mmon 00:00:00 00:00:00 Spirit - CHI [facility] 2022-07-26 2022-08-06 Office Maynor Romero 1.2.840.1 [id number] 01 [id number] Methodi 10:00:00 16:53:40 Visit Rich Pond 09915.1.[address] 3.430.2.7 Hospit a .3.644372 l .8 2022-07-26 2022-08-06 Office Maynor Romero 1.2.840.1 [id number] 01 [id number] Methodi 10:00:00 16:53:40 Visit Rich Pond 80166.1.[address] 3.430.2.7 Hospit a .3.355835 l .8 2022-07-29 2022-07-29 Outpatient YASMEEN KHANNA [facility] [id number] [place] 09:54:00 09:54:00 NAHUN [id number] Critical access hospital 2022-07-26 2022-07-26 Travel 1.2.840.1 1.2.504.874 1988 [id number] Methodi 00:00:00 00:00:[address] 3.430.2.7 0.2.7.3.698 Ho spita .3.823142 084.8 l .8 2022-07-26 2022-07-26 Travel 1.2.840.1 1.2.276.056 8998 334189 Methodi 00:00:00 00:00:[address] 3.430.2.7 0.2.7.3.698 Ho spita .3.740555 084.8 l .8 2022-06-14 2022-07-10 Outpatient YASMEEN ROMERO, [facility] [id number] [place] 07:00:00 00:01:00 MAYNOR -[id number] Critical access hospital 2022-07-05 2022-07-05 Emergency ER Ash[place], [facility] [id number] [place] 23:45:00 23:58:00 Neymar -[id number] Critical access hospital 2022-06-25 2022-06-25 Outpatient YASMEEN Diaz, [facility] [id number] [place] 10:55:00 10:55:00 Ronnell -[id number] Critical access hospital 2022-06-25 2022-06-25 Outpatient Zuniga_F [facility] [id number]- 2021 [place] 00:00:00 00:00:00 1216 [facility] 2022-06-25 2022-06-25 Outpatient Zuniga_F [facility] [id number]- 2022 [place] 00:00:00 00:00:00 0509 Medical Group 2022-06-25 2022-06-25 Outpatient Zuniga_F [facility] [id number]- 2022 [place] 00:00:00 00:00:00 0510 [facility] 2022-06-25 2022-06-25 Outpatient Zuniga_F [facility] [id number]- 2022 [place] 00:00:00 00:00:00 0513 Medical [facility] 2022-06-25 2022-06-25 Radha SAVAGE [place] - [id number] [place] 00:00:00 00:00:00 Discovery perry Diaz [facility]-C: [address] [address] , Ph. 2022-06-24 2022-06-24 Orders Jasteveheri, 1.2.840.1 [id number] 2099 [id number] Methodi 00:00:00 00:00:00 Only Rich 47421.1.[address] 3.430.2.7 Hospit a .3.781049 l .8 2022-06-24 2022-06-24 Orders Javaheri, 1.2.840.1 [id number] 2099 [id number] Methodi 00:00:00 00:00:00 Only Rich 91646.1.[address] 3.430.2.7 Hospit a .3.234504 l .8 2022-06-21 2022-06-21 Outpatient Mounauniga_F [facility] [id number]- 2021 [place] 00:00:00 00:00:00 1212 [facility] 2022-06-21 2022-06-21 Ronnell [facility] [place] - [id number] [place] 00:00:00 00:00:00 Aracelis Klein MD: [address] [place] [address] , Ph. 2022-06-09 2022-06-16 Inpatient ER Orlando [facility] MED [id number] [place] 08:05:00 15:40:00 Ronnell -[id number] Critical access hospital 2022-06-02 2022-06-09 Outpatient YASMEEN ROMERO [facility] [id number] [place] 11:00:00 00:01:00 MAYNOR [id number] Critical access hospital 2022-06-07 2022-06-07 Inpatient ER ORLANDO, [facility] [id number] [place] 17:16:00 14:35:00 RONNELL -[id number] Critical access hospital 2022-06-05 2022-06-05 Emergency ER [facility], [facility] [id number] [place] 15:31:00 15:45:00 JASON -[id number] Critical access hospital 2022-05-26 2022-05-26 Outpatient YASMEEN ROMERO, [facility] [id number] [place] 11:00:00 11:00:00 MAYNOR -[id number] Critical access hospital 2022-05-24 2022-05-24 Outpatient YASMEEN ROMERO, [facility] [id number] [place] 11:00:00 11:00:00 MAYNOR -[id number] Critical access hospital 2022-05-21 2022-05-21 Outpatient YASMEEN ROMERO, [facility] [id number] [place] 11:00:00 11:00:00 MAYNOR -[id number] Critical access hospital 2022-05-20 2022-05-20 Outpatient YASMEEN KHANNA, [facility] [id number] [place] 08:01:00 08:01:00 NAHUN -[id number] Critical access hospital 2022-05-19 2022-05-19 OFFICE [facility] [id number] Co mmon 00:00:00 00:00:00 VISIT [facility] PT LEVEL 3 - CHI [facility] 2022-05-19 2022-05-19 Orders Dejah, 1.2.840.1 [id number] 2100 [id number] Methodi 00:00:00 00:00:00 Only Rich 85422.1.[address] 3.430.2.7 Hospit a .3.145425 l .8 2022-05-18 2022-05-18 Emergency ER JOEL, [facility] D000 [id number] [place] 19:04:00 21:55:00 BRENDA -[id number] Critical access hospital 2022-04-30 2022-04-30 Emergency ER LANGHORN, [facility] [id number] [place] 14:49:00 15:34:00 JASON -[id number] Critical access hospital 2022-04-25 2022-04-25 Emergency ER Beatrice, [facility] [id number] [place] 14:10:00 14:43:00 Neymar -[id number] Critical access hospital 2022-04-21 2022-04-21 Emergency ER JACLYN, [facility] [id number] [place] 08:47:00 10:02:00 SHI -[id number] Critical access hospital 2022-04-19 2022-04-19 Office Wood, 1.2.840.1 [id number] 8100 Methodi 10:20:00 11:30:20 Visit Maynor Sánchez 95222.1.1 [address]37 [address] 3.430.2.7 Hospit a .3.726183 l .8 2022-04-19 2022-04-19 Travel 1.2.840.1 1.2.306.480 4076 074953 Methodi 00:00:00 00:00:[address] 3.430.2.7 0.2.7.3.698 Ho spita .3.769145 084.8 l .8 2022-04-16 2022-04-16 Emergency ER Beatrice, [facility] [id number] [place] 08:42:00 11:50:00 Neymar -[id number] Critical access hospital 2022-04-14 2022-04-14 Emergency ER JACLYN, [facility] [id number] [place] 07:08:00 08:22:00 SHI -[id number] Critical access hospital 2022-04-05 2022-04-05 Emergency ER Melissa, [facility] [id number] [place] 12:23:00 14:08:00 Alexa -[id number] Critical access hospital 2022-04-01 2022-04-01 Outpatient Zuniga_F [facility] [id number]- 2021 [place] 00:00:00 00:00:00 0922 Medical [facility] 2022-04-01 2022-04-01 Orders Dejah, 1.2.840.1 [id number] 2099 [id number] Methodi 00:00:00 00:00:00 Only Rich 16585.1.[address] 3.430.2.7 Hospit a .3.103451 l .8 2022-03-31 2022-03-31 Emergency ER ANAYA, [facility] [id number] [place] 13:34:00 16:08:00 SHI -[id number] Critical access hospital 2022-03-21 2022-03-21 Emergency ER [facility], [facility] [id number] [place] 09:47:00 14:33:00 JASON -[id number] Critical access hospital 2022-03-19 2022-03-19 Office Dejah, 1.2.840.1 [id number] 2099 [id number] Methodi 14:20:00 14:33:59 Visit Rich 29452.1.[address] 3.430.2.7 Hospit a .3.693950 l .8 2022-03-19 2022-03-19 Travel 1.2.840.1 1.2.066.682 9682 249423 Methodi 00:00:00 00:00:[address] 3.430.2.7 0.2.7.3.698 Ho spita .3.262635 084.8 l .8 2022-03-11 2022-03-11 Emergency ER [facility], [facility] [id number] [place] 09:45:00 13:28:00 JULIUS -[id number] Critical access hospital 2022-03-09 2022-03-09 Outpatient Gloria [facility] [id number] -2021 [place] 00:00:00 00:00:00 829 Medical Group 2022-03-09 2022-03-09 Kia DOBSON [place] - [id number] M atagor 00:00:00 00:00:00 Discovery perry Simpson PA-C: [address] [facility] [place] [address], [facility] [address] , Ph. 2022-03-07 2022-03-07 Emergency ER JACLYN [facility] [id number] [place] 12:01:00 13:53:00 SHI -[id number] Critical access hospital 2022-03-03 2022-03-03 Telephone Apolinar 1.2.840.1 [id number] 2100 [id number] Methodi 00:00:00 00:00:[address] 3.430.2.7 Hospit a .3.773839 l .8 2022-03-02 2022-03-02 [facility] [place], 1.2.840.1 [id number] 87178 Methodi 05:56:00 11:56:00 Encounter Maynor Sánchez 93577.1.[address] 3.430.2.7 Hospit a .3.280082 l .8 2022-03-02 2022-03-02 Anesthesia Alfreda Duvall 1.2.840.1 10 [id number] Methodi 07:29:00 09:55:00 Event Anna Adair 03754.1.[address] 3.430.2.7 Hospit a .3.206692 l .8 2022-03-02 2022-03-02 Surgery [place], 1.2.840.1 [id number] 3340 Methodi 07:30:00 09:50:00 Maynor Sánchez 32760.1.1 735 s t 3.430.2.7 Hospit a .3.225663 l .8 2022-03-02 2022-03-02 Telephone Dejah 1.2.840.1 [id number] 21 [id number] Methodi 00:00:00 00:00:[address] 3.430.2.7 Hospit a .3.581718 l .8 2022-03-01 2022-03-01 [facility], 1.2.840.1 [id number] 36826 90261 Methodi 12:18:26 23:59:00 Encounter Maynor Sánchez [address]89.1.[address] 3.430.2.7 Hospit a .3.349598 l .8 2022-03-01 2022-03-01 Pre-Admiss Nick, 1.2.840.1 [id number] 910 [id number] Methodi 09:30:00 10:30:00 doris Sánchez 22405.1.1 034 s t Testing 3.430.2.7 Hospit a .3.256314 l .8 2022-03-01 2022-03-01 Telephone Graeme, 1.2.840.1 [id number] Methodi 00:00:00 00:00:00 Mica[address] Santa [address]25.1.[address] 3.430.2.7 Hospit a .3.440611 l .8 2022-03-01 2022-03-01 Travel 1.2.840.1 1.2.964.999 3353 877951 Methodi 00:00:00 00:00:[address] 3.430.2.7 0.2.7.3.698 Ho spita .3.312444 084.8 l .8 2022-02-26 2022-02-26 Daniel Romero, 1.2.840.1 [id number] Methodi 00:00:00 00:00:00 Maynor Sánchez 33745.1.1 279 s t 3.430.2.7 Hospit a .3.592761 l .8 2022-02-26 2022-02-26 Travel 1.2.840.1 1.2.711.322 1113 376451 Methodi 00:00:00 00:00:[address] 3.430.2.7 0.2.7.3.698 Ho spita .3.200177 084.8 l .8 2022-02-24 2022-02-25 Emergency [facility] [place] 1.2.840.1 1041 43629 [id number] Methodi 15:25:00 19:45:00 Basilio Diallo 14848.1.[address] 3.430.2.7 Hospit a .3.903760 l .8 2022-02-25 2022-02-25 Transcribe [place], 1.2.840.1 [id number] 912 [id number] Methodi 00:00:00 00:00:00 Orders Maynor B. 81360.1.1 241 s t 3.430.2.7 Hospit a .3.254651 l .8 2022-02-25 2022-02-25 Orders Klausstevemisael, 1.2.840.1 [id number] 2099 [id number] Methodi 00:00:00 00:00:00 Only Rich 36121.1.[address] 3.430.2.7 Hospit a .3.048566 l .8 2022-02-24 2022-02-24 [facility], 1.2.840.1 [id number] 29684 Methodi 18:39:58 23:59:00 Encounter Maynor LynchJuan José [address]27.1.[address] 3.430.2.7 Hospit a .3.845876 l .8 2022-02-24 2022-02-24 [facility], 1.2.840.1 [id number] 06825 Methodi 18:39:26 23:59:00 Encounter Maynor LynchJuan José [address]272.1.[address] 3.430.2.7 Hospit a .3.646586 l .8 2022-02-24 2022-02-24 [facility], 1.2.840.1 [id number] 9708 Methodi 00:00:00 00:00:00 Only Maynor CrisJuan José 95823.1.1 790 s t 3.430.2.7 Hospit a .3.068311 l .8 2022-02-24 2022-02-24 Travel 1.2.840.1 1.2.674.067 8876 185136 Methodi 00:00:00 00:00:[address] 3.430.2.7 0.2.7.3.698 Ho spita .3.895192 084.8 l .8 2022-02-12 2022-02-12 Emergency ER GUME, [facility] [id number] [place] 08:42:00 13:17:00 JASON -[id number] Critical access hospital 2022-01-26 2022-01-26 Outpatient ANDREIA ANTONIO MDCRYSTAL 909 [place] 12:18:00 12:18:00 _DOREEN 19 [facility] 2022-01-17 2022-01-17 Emergency ER Melissa, [facility] [id number] [place] 18:06:00 21:18:00 Alexa -[id number] Critical access hospital 2021-12-18 2021-12-18 Office Nick, 1.2.840.1 [id number] 4581 Methodi 10:20:00 11:32:26 Visit Maynor Sánchez 08798.1.1 071 s t 3.430.2.7 Hospit a .3.769508 l .8 2021-12-18 2021-12-18 [facility] [id number] [place] 00:00:00 00:00:00 MAYNOR [address] 2021-12-18 2021-12-18 Travel 1.2.840.1 1.2.400.372 4423 642511 Methodi 00:00:00 00:00:[address] 3.430.2.7 0.2.7.3.698 Ho spita .3.247454 084.8 l .8 2021-12-18 2021-12-18 [facility] [id number] [place] 00:00:00 00:00:00 MAYNOR Armenta [facility] 2021-11-30 2021-11-30 Emergency ER JACKY, [facility] [id number] [place] 01:26:00 04:02:00 HARRISON -[id number] Critical access hospital 2021-11-06 2021-11-06 Outpatient Hawkins_M [facility] [id number] [place] 12:33:00 12:33:00 [facility] 2021-11-06 2021-11-06 Outpatient Hawkins_M [facility] [id number] [place] 00:00:00 00:00:00 0429 [facility] 2021-11-06 2021-11-06 Susan [facility] [place] - [id number] M [place] 00:00:00 00:00:00 Aracelis [facility] [employer] SPECIALIST: [address] [address] , Ph. 2021-11-05 2021-11-05 [facility] [id number] [place] 04:51:00 04:51:00 0428 Medical Group 2021-09-14 2021-09-14 [facility] [place] 12:39:00 12:39:00 0307 Medical Group 2021-09-14 2021-09-14 Kia [facility] [place] - [id number] M at[place] 00:00:00 00:00:00 Discovery Calvin da PA-C: [facility] [address] [address] , Ph. 2021-09-14 2021-09-14 Travel [id number] Methodi 00:00:00 00:00:[id number] 3.430.2.7 [id number] Ho spita .[id number] 084.8 l .8 2021-08-10 2021-08-10 Outpatient Koudela_A MMG [facility] [id number] [place] 11:36:00 11:36:00 0131 [facility] 2021-08-10 2021-08-10 Outpatient Koudela_A MMG [facility] [id number] [place] 11:36:00 11:36:00 0211 [facility] 2021-08-10 2021-08-10 Outpatient EL CALVIN, [facility] [id number] [place] 11:05:00 11:05:00 KIA -[id number] Critical access hospital 2021-06-24 2021-06-24 Inpatient ER Nawaf, [facility] MED [id number] [place] 00:24:00 13:53:00 Abraham -[id number] Critical access hospital 2021-05-04 2021-05-04 Outpatient Zuniga_F MMG MMG [id number] [place] 10:22:00 10:22:00 1220 [facility] 2021-04-28 2021-04-29 Emergency ER MARCUS, [facility] [id number] [place] 18:03:00 01:22:00 BARBARA -[id number] Critical access hospital 2021-03-26 2021-03-26 Outpatient Zuniga_F MMG MMG [id number] [place] 10:53:00 10:53:00 0916 [facility] 2021-03-26 2021-03-26 Outpatient YASMEEN Diaz, [facility] [id number] [place] 08:44:00 08:44:00 Ronnell -[id number] Critical access hospital 2021-03-26 2021-03-26 Ronnell MMG [place] - [id number] [place] 00:00:00 00:00:00 Aracelis Klein MD: [address] [address], [place] [address] , Ph. 2021-03-10 2021-03-10 Outpatient Zuniga_F MMG MMG [id number] [place] 04:23:00 04:23:00 0831 [facility] 2021-03-10 2021-03-10 Ronnell MMG [place] - [id number] [place] 00:00:00 00:00:00 Aracelis Klein MD: [address] [facility] [address], [place] [address] , Ph. 2021-02-19 2021-02-19 Emergency ER CELSA MUNGUIA [facility] [id number] [place] 09:17:00 18:11:00 -[id number] Critical access hospital 2021-02-18 2021-02-18 Outpatient Zuniga_F MMG [facility] [id number] [place] 10:58:00 10:58:00 0811 [facility] 2021-02-13 2021-02-13 [place] [id number] [place] 11:36:00 11:36:00 0806 [facility] 2021-02-11 2021-02-11 [place] [id number] [place] 04:11:00 04:11:00 0804 da Medical [facility] 2021-01-18 2021-01-18 Emergency ER CHINO, [facility] [id number] [place] 07:23:00 15:33:00 VALE -[id number] Critical access hospital 2021-01-02 2021-01-02 Outpatient Zuniga_S MMG [facility] [id number] [place] 11:03:00 11:03:00 0625 [facility] 2021-01-02 2021-01-02 Outpatient Zuniga_S MMG [facility] [id number] [place] 11:03:00 11:03:00 0626 da Medical [facility] 2021-01-02 2021-01-02 Radha [facility] [place] - [id number] [place] 00:00:00 00:00:00 Discovery Orlando da INTEGRATION AIDE-C: 600 [facility] [place] - [address], [facility] [address] , Ph. 2020-07-15 2020-07-15 Outpatient Zuniga_F MMG [facility] [id number] [place] 12:50:00 12:50:00 0105 [facility] 2020-07-15 2020-07-15 Outpatient Zuniga_F MMG MMG [id number] [place] 12:50:00 12:50:00 0111 [facility] 2020-07-15 2020-07-15 Tyson MMG [place] - [id number] M [place] 00:00:00 00:00:00 Discovery perry Munoz MD: [address] [place] [address] - [address], [place] [address] , Ph. 2020-07-14 2020-07-14 Outpatient Zuniga_F MMG MMG [id number]- 2020 [place] 04:30:00 04:30:00 0104 [facility] 2020-07-14 2020-07-14 Ronnell MMG [place] - [id number] [place] 00:00:00 00:00:00 Aracelis Klein MD: [address] [place] [address] - [place] [facility] [address], [place] [address] , Ph. 2020-07-10 2020-07-10 Outpatient Zuniga_F MMG MMG [id number] [place] 10:29:00 10:29:00 1231 [facility] 2020-07-07 2020-07-08 Emergency ER CHINO, [facility] [id number] [place] 23:32:00 12:45:00 PRISCILA [id number] Critical access hospital 2020-02-26 2020-02-26 Outpatient Zuniga_F MMG MMG [id number] [place] 12:39:00 12:39:00 1229 [facility] 2020-02-26 2020-02-26 Outpatient Zuniga_F MMG MMG [id number] [place] 12:39:00 12:39:00 1230 [facility] 2020-01-30 2020-01-30 Outpatient Zuniga_F MMG MMG [id number] [place] 08:08:00 08:08:00 0722 [facility] 2020-01-30 2020-01-30 Ronnell MMG [place] - [id number] [place] 00:00:00 00:00:00 Aracelis Klein MD: [address] [facility] [address], [place] [address] , Ph. 2020-01-29 2020-01-29 Outpatient Raju_P MMG MMG [id number] [place] 04:40:00 04:40:00 0721 [facility] 2019-11-06 2019-11-06 Outpatient Raju_P MMG MMG [id number] [place] 03:29:00 03:29:00 0428 [facility] 2019-11-06 2019-11-06 Outpatient Raju_P MMG MMG [id number] [place] 03:29:00 03:29:00 0429 [facility] 2019-03-02 2019-03-02 Outpatient YASMEEN ASCENCIO [facility] [id number] [place] 11:02:00 11:02:00 BYROLYN -[id number] Critical access hospital 2019-02-13 2019-02-13 Emergency ER CHINO, [facility] [id number] [place] 17:16:00 18:34:00 PRISCILA -[id number] Critical access hospital 2018-02-07 2018-02-07 Outpatient YASMEEN LOPEZSYEDCHAD [facility] D00 [id number] [place] 09:47:00 09:47:00 Mario AlbertoMARIA ANTONIACHRISTINE -[id number] Critical access hospital 2017-10-12 2017-10-12 Emergency ER OWO, TOKS [facility] [id number] [place] 17:50:00 19:49:00 -[id number] Critical access hospital 2017-06-01 2017-06-01 Emergency ER OWO, TOKS [facility] [id number] [place] 04:32:00 06:26:00 -[id number] Critical access hospital 2017-02-24 2017-02-24 Outpatient YASMEEN ASCENCIO, [facility] [id number] [place] 08:41:00 08:41:00 BYROLYN -[id number] Critical access hospital 2017-01-13 2017-01-13 Emergency ER UGEMERSON, [facility] [id number] [place] 00:20:00 03:56:00 CLEMENT -[id number] Critical access hospital 2016-09-02 2016-09-02 Emergency ER UGORJI, [facility] [id number] [place] 13:20:00 14:30:00 CLEMENT -[id number] Critical access hospital 2016-04-28 2016-04-29 Emergency ER OWO, TOKS [facility] [id number] [place] 22:59:00 01:22:00 -[id number] Critical access hospital 2015-09-28 2015-09-29 Emergency ER SAEMI, [facility] [id number] [place] 21:04:00 08:15:00 NUNO -[id number] Critical access hospital 2015-05-05 2015-05-05 Emergency ER UGORJI, [facility] [id number] [place] 19:34:00 21:26:00 CLEMENT -[id number] Critical access hospital 2014-11-07 2014-11-08 Emergency ER OWO, TOKS [facility] [id number] [place] 23:26:00 04:30:00 -[id number] Critical access hospital 2014-08-01 2014-08-01 Outpatient EL VALLOPPILLI [facility] D00 [id number] [place] 12:03:00 12:03:00 SUNNY Llanes -[id number] Critical access hospital 2011-12-29 2011-12-29 Emergency ER OTINWA, [facility] [id number] [place] 19:51:00 22:10:00 PARKER -[id number] Critical access hospital 2011-11-12 2011-11-12 Outpatient EL VALLOPPILLI [facility] D00 [id number] [place] 07:58:00 07:58:00 Mario Alberto AMMINI -[id number] Critical access hospital 2011-10-10 2011-10-11 Emergency ER THAKKAR, [facility] [id number] [place] 22:24:00 01:45:00 WAS -[id number] Critical access hospital 2011-10-06 2011-10-06 Emergency ER UGORJI, [facility] [id number] [place] 00:27:00 06:30:00 CLEMENT -[id number] da [facility] 2011-09-08 2011-09-08 Outpatient EL BELL [facility] D00 [id number] [place] 11:57:00 11:57:00 Mario AlbertoCRISTOFERMisael -[id number] perry [facility] 2010-06-16 2010-06-17 Emergency ER LARISSA, [facility] [id number] [place] 18:00:00 04:05:00 ZBIGNIEW -[id number] d pancho [facility] 2010-03-24 2010-03-24 Outpatient EL VALLOJACEK [facility] D00 [id number] [place] 14:21:00 14:21:00 SUNNY Llanes -[id number] Critical access hospital Results Test Description Test Time Test Comments Results Result Sourc e Comments IR Myelogram Lumb 2023-05-11 EXAMINATION: [...] opacification below the L5-S1 disc space [id number] Myel[facility] Lumb 2023-05-11 EXAMINATION: IR Me [...] opacification below the L5-S1 disc space level. 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 [facility]-[id number] Comprehensive metabolic 2000 panel - Serum or [...] U/L 40-1 30 phosphatase, total) [facility] 12:31[facility]00 Test Item Value Reference Range Interpretation Comments lipase (test code = lipase) 290 U/L 13-60 H [facility] Differential panel - [id number] 12:07:00 Test Item Value Reference Range Interpretation [...] code = NRBC#) 0 K/uL [facility]reflexed)2022-06-16 07:40:00 Test Item Value Reference [...] = normal normal platelet morphology) [facility]2022-12-07 07:12:00 Test Item Value Reference Range Interpretation Comments lipase (test code = lipase) 432 U/L 13-60 H [facility] - Serum or Plasma [...] code = alkaline phosphatase, total) [facility] 07:06:00 Test Item Value Reference Range Interpretation Comments LDH (test code = LDH) 421 U/L 135-225 H [facility]2022-12-07 07:06:00 Test Item Value Reference Range Interpretation Comments LDH (test code = LDH) 421 U/L 135-225 H [facility] W Auto Differential panel - [id number] 06:46:00 Test Item Value Reference Range Interpretation [...] RBC code = morphology comment) [facility]2022-12-06 11:10:00 Test Item Value Reference Range Interpretation Comments lipase (test code = lipase) 478 U/L 13-60 H [facility] 2000 [facility] - Serum or Plasma [...] U/L 40-130 code = alkaline phosphatase, total) [facility] W Ordered Manual Differential panel - [id number] 10:52:00 Test Item Value Reference Range Interpretation [...] (test normal normal code = platelet morphology) [facility] (reflexed)2022-06-14 05:46:00 Test Item Value [...] = normal normal platelet morphology) [facility] - Serum or Plasma [...] code = alkaline phosphatase, total) [facility]2022-12-05 05:30:00 Test Item Value Reference Range Interpretation Comments lipase (test code = lipase) 273 U/L 13-60 H [facility] W Auto Differential panel - [id number] 05:16:00 Test Item Value Reference Range Interpretation [...] RBC code = morphology comment) [facility]2022-06-13 11:13:00 Test Item Value Reference [...] = normal normal platelet morphology) [facility] 11:13:00 Test Item Value Reference [...] (test code = normal normal platelet morphology) [facility] W Auto Differential panel - [id number] 08:26:00 Test Item Value Reference Range Interpretation [...] code = NRBC#) 0 K/uL [facility] Differential panel - [id number] 08:26:00 Test Item Value Reference Range Interpretation [...] code = NRBC#) 0 K/uL [facility] - Serum or Plasma [...] code = alkaline phosphatase, total) [facility]2022-12-04 08:22:00 Test Item Value Reference Range Interpretation Comments lipase (test code = lipase) 226 U/L 13-60 H [facility] - Serum or Plasma [...] code = alkaline phosphatase, total) [facility]2022-12-04 08:22:00 Test Item Value Reference Range Interpretation Comments lipase (test code = lipase) 226 U/L 13-60 H [facility] - Serum or Plasma [...] code = alkaline phosphatase, total) [facility]2022-12-03 04:36:00 Test Item Value Reference Range Interpretation Comments lipase (test code = lipase) 102 U/L 13-60 H [facility]2022-12-03 04:36:00 Test Item Value Reference Range Interpretation Comments lipase (test code = lipase) 102 U/L 13-60 H [facility] - Serum or Plasma [...] code = alkaline phosphatase, total) [facility]2022-12-03 04:36:00 Test Item Value Reference Range Interpretation Comments lipase (test code = lipase) 102 U/L 13-60 H [facility]2022-12-03 04:36:00 Test Item Value Reference Range Interpretation Comments lipase (test code = lipase) 102 U/L 13-60 H [facility] W Auto Differential panel - [id number] 04:18:00 Test Item Value Reference Range Interpretation [...] NRBC# (test code = NRBC#) 0 K/uL [facility] W Auto Differential panel - [id number] 04:18:00 Test Item Value Reference Range Interpretation [...] NRBC# (test code = NRBC#) 0 K/uL [place] [id number] 08:39:00 Test Item Value Reference Range Interpretation Comments LDH (test code = LDH) 457 U/L 135-225 H [facility]2022-[facility]-02 08:39:00 Test Item Value Reference Range Interpretation Comments LDH (test code = LDH) 457 U/L 135-225 H [facility] [id number] 08:26:00 Test Item Value Reference Range Interpretation Comments lactic acid (test code = lactic 1.12 mmol/L 0.5-2.2 acid) [facility] [id number] 08:26:00 Test Item Value Reference Range Interpretation Comments lactic acid (test code = lactic 1.12 mmol/L 0.5-2.2 acid) [facility]2022-12-02 07:47:00 Test Item Value Reference Range Interpretation Comments lipase (test code = lipase) 136 U/L 13-60 H [facility]2022-12-02 07:47:00 Test Item Value Reference Range Interpretation Comments lipase (test code = lipase) 136 U/L 13-60 H [facility] 2000 [facility] - Serum or Plasma [...] code = alkaline phosphatase, total) [facility] - Serum or Plasma [...] U/L 40-130 code = alkaline phosphatase, total) [facility] (reflexed)2022-06-11 07:30:00 Test Item Value [...] = normal normal platelet morphology) [facility]2022-06-11 07:30:00 Test Item Value Reference [...] (test code = normal normal platelet morphology) [facility] W Auto Differential panel - [id number] 07:23:00 Test Item Value Reference Range Interpretation [...] morph. normal RBC code = morphology comment) [facility] W Auto Differential panel - [id number] 07:23:00 Test Item Value Reference Range Interpretation [...] morph. normal RBC code = morphology comment) [facility] panel - Arterial [id number] 15:03:00 Test Item Value Reference Range Interpretation [...] (test code = O2 7.9 mmol/L content) [facility] panel - Arterial [id number] 15:03:00 Test Item Value Reference Range Interpretation [...] (test code = O2 7.9 mmol/L content) [facility] [id number] 13:03:00 Test Item Value Reference Range Interpretation Comments blood culture (test code = final report. blood culture) [facility] [id number] 13:03:00 Test Item Value Reference Range Interpretation Comments blood culture (test code = final report. blood culture) [facility]2022-06-10 07:41:00 Test Item Value Reference [...] = normal normal platelet morphology) [facility]2022-06-10 07:41:00 Test Item Value Reference [...] (test code = normal normal platelet morphology) [facility] 07:33:00 Test Item Value Reference Range Interpretation Comments LDH (test code = LDH) 319 U/L 135-225 H [facility] 07:33:00 Test Item Value Reference Range Interpretation Comments LDH (test code = LDH) 319 U/L 135-225 H [facility] - Serum or Plasma [...] code = alkaline phosphatase, total) [facility]2022-12-01 07:28:00 Test Item Value Reference Range Interpretation Comments lipase (test code = lipase) 297 U/L 13-60 H [facility] - Serum or Plasma [...] code = alkaline phosphatase, total) [facility]2022-12-01 07:28:00 Test Item Value Reference Range Interpretation Comments lipase (test code = lipase) 297 U/L 13-60 H [facility] [id number] 07:26:00 Test Item Value Reference Range Interpretation Comments lactic acid (test code = lactic 1.18 mmol/L 0.5-2.2 acid) [facility] [id number] 07:26:00 Test Item Value Reference Range Interpretation Comments lactic acid (test code = lactic 1.18 mmol/L 0.5-2.2 acid) [facility] [id number] 06:53:00 Test Item Value Reference Range Interpretation Comments ionized calcium (test code = 4.17 mg/dL 4.34-5.00 L ionized calcium) [facility] W Auto Differential panel - [id number] 06:53:00 Test Item Value Reference Range Interpretation [...] morph. normal RBC code = morphology comment) [facility] [id number] 06:53:00 Test Item Value Reference Range Interpretation Comments ionized calcium (test code = 4.17 mg/dL 4.34-5.00 L ionized calcium) [facility] W Auto Differential panel - [id number] 06:53:00 Test Item Value Reference Range Interpretation [...] RBC code = morphology comment) [facility]2022-11-30 06:34:00 Test Item Value Reference Range Interpretation Comments lipase (test code = lipase) 1018 U/L 13-60 H [facility]2022-11-30 06:34:00 Test Item Value Reference Range Interpretation Comments lipase (test code = lipase) 1018 U/L 13-60 H [facility]2022-11-30 06:33:00 Test Item Value Reference Range Interpretation Comments LDH (test code = LDH) 296 U/L 135-225 H [facility]2022-11-30 06:33:00 Test Item Value Reference Range Interpretation Comments LDH (test code = LDH) 296 U/L 135-225 H [facility] 2000 [facility] - Serum or Plasma [...] code = alkaline phosphatase, total) [facility] - Serum or Plasma [...] code = alkaline phosphatase, total) [facility] [id number] 06:26:00 Test Item Value Reference Range Interpretation Comments lactic acid (test code = lactic 1.00 mmol/L 0.5-2.2 acid) [facility] [id number] 06:26:00 Test Item Value Reference Range Interpretation Comments lactic acid (test code = lactic 1.00 mmol/L 0.5-2.2 acid) [facility] W Auto Differential panel - [id number] 06:16:00 Test Item Value Reference Range Interpretation [...] NRBC# (test code = NRBC#) 0 K/uL [facility] W Auto Differential panel - [id number] 06:16:00 Test Item Value Reference Range Interpretation [...] code = NRBC#) 0 K/uL [facility] [id number] 05:06:00 Test Item Value Reference Range Interpretation [...] = 6.828 cholesterol risk ratio) [facility] [id number] 05:06:00 Test Item Value Reference Range Interpretation [...] = 6.828 cholesterol risk ratio) [facility]2022-11-29 04:59:00 Test Item Value Reference Range Interpretation Comments lipase (test code = lipase) 1955 U/L 13-60 H [facility]2022-11-29 04:59:00 Test Item Value Reference Range Interpretation Comments lipase (test code = lipase) 1955 U/L 13-60 H [facility]2022-11-29 04:59:00 Test Item Value Reference Range Interpretation Comments lipase (test code = lipase) 1955 U/L 13-60 H [facility]2022-11-29 04:59:00 Test Item Value Reference Range Interpretation Comments lipase (test code = lipase) 1955 U/L 13-60 H [facility] W Auto Differential panel - [id number] 04:07:00 Test Item Value Reference Range Interpretation [...] NRBC# (test code = NRBC#) 0 K/uL [facility] W Auto Differential panel - [id number] 04:07:00 Test Item Value Reference Range Interpretation [...] code = NRBC#) 0 K/uL [facility] [id number] 18:23:00 Test Item Value Reference Range Interpretation Comments alcohol level (test code = alcohol < 10.0 0.0-10.1 level) [id number] 18:23:00 Test Item Value Reference Range Interpretation Comments alcohol level (test code = alcohol < 10.0 0.0-10.1 level) [facility]2022-08-23 11:47:00 Test Item Value Reference Range Interpretation Comments POC glucose (test code = 103 mg/dL 65-99 H Ope rator Name: 57194-9) Esmail Quratula in [facility] ID: [id number] able: RN Notified Lab Interpretation (test Abnormal code = 37570-2) [facility]2022-08-23 11:47:00 Test Item Value Reference Range Interpretation Comments POC glucose (test code = 103 mg/dL 65-99 H Ope rator Name: 26222-4) Esmail Quratula in [facility] ID: [id number] able: RN Notified Lab Interpretation (test Abnormal code = 36249-3) [facility]2022-08-23 11:47:00 Test Item Value Reference Range Interpretation Comments POC glucose (test code = 103 mg/dL 65-99 H Ope rator Name: 90128-4) Esmail Quratula in [facility] ID: [id number] able: RN Notified Lab Interpretation (test Abnormal code = 77161-8) [facility]2022-08-23 11:47:00 Test Item Value Reference Range Interpretation Comments POC glucose (test code = 103 mg/dL 65-99 H Ope rator Name: 07279-3) Esmail Quratula in [facility] ID: [id number] able: RN Notified Lab Interpretation (test Abnormal code = 37440-3) [facility]2022-08-23 11:47:00 Test Item Value Reference Range Interpretation Comments POC glucose (test code = 103 mg/dL 65-99 H Ope rator Name: 48772-2) Esmail Quratula in [facility] ID: [id number] able: RN Notified Lab Interpretation (test Abnormal code = 84001-7) [facility]2022-08-23 11:47:00 Test Item Value Reference Range Interpretation Comments POC glucose (test code = 103 mg/dL 65-99 H Ope rator Name: 14709-5) Esmail Quratula in [facility] ID: [id number] able: RN Notified Lab Interpretation (test Abnormal code = 78040-5) [facility]2022-08-23 11:47:00 Test Item Value Reference Range Interpretation Comments POC glucose (test code = 103 mg/dL 65-99 H Ope rator Name: 97927-3) Esmail Quratula in [facility] ID: [id number] able: RN Notified Lab Interpretation (test Abnormal code = 06645-6) [facility]2022-08-23 11:47:00 Test Item Value Reference Range Interpretation Comments POC glucose (test code = 103 mg/dL 65-99 H Ope rator Name: 63843-3) Esmail Quratula in [facility] ID: [id number] able: RN Notified Lab Interpretation (test Abnormal code = 91611-7) [place] 146052-08-23 11:47:00 Test Item Value Reference Range Interpretation Comments POC glucose (test code = 103 mg/dL 65-99 H Ope rator Name: 25179-5) Esmail Quratula in [facility] ID: [id number] able: RN Notified Lab Interpretation (test Abnormal code = 10557-7) [facility]2022-08-23 11:47:00 Test Item Value Reference Range Interpretation Comments POC glucose (test code = 103 mg/dL 65-99 H Ope rator Name: 04355-6) Esmail Quratula in [facility] ID: [id number] able: RN Notified Lab Interpretation (test Abnormal code = 71779-6) [facility]2022-08-23 11:47:00 Test Item Value Reference Range Interpretation Comments POC glucose (test code = 103 mg/dL 65-99 H Ope rator Name: 41773-2) Esmail Quratula in [facility] ID: [id number] able: RN Notified Lab Interpretation (test Abnormal code = 30546-2) [facility]2022-08-23 11:47:00 Test Item Value Reference Range Interpretation Comments POC glucose (test code = 103 mg/dL 65-99 H Ope rator Name: 05190-9) Esmail Quratula in [facility] ID: [id number] able: RN Notified Lab Interpretation (test Abnormal code = 97207-4) [facility]2022-08-23 11:47:00 Test Item Value Reference Range Interpretation Comments POC glucose (test code = 103 mg/dL 65-99 H Ope rator Name: 55945-5) Esmail Quratula in [facility] ID: [id number] able: RN Notified Lab Interpretation (test Abnormal code = 69178-1) [facility]2022-08-23 11:47:00 Test Item Value Reference Range Interpretation Comments POC glucose (test code = 103 mg/dL 65-99 H Ope rator Name: 64096-0) Esmail Quratula in [facility] ID: [id number] able: RN Notified Lab Interpretation (test Abnormal code = 87182-6) [facility]2022-08-23 11:47:00 Test Item Value Reference Range Interpretation Comments POC glucose (test code = 103 mg/dL 65-99 H Ope rator Name: 62459-1) Esmail Quratula in [facility] ID: [id number] able: RN Notified Lab Interpretation (test Abnormal code = 25920-3) [facility]2022-08-23 11:47:00 Test Item Value Reference Range Interpretation Comments POC glucose (test code = 103 mg/dL 65-99 H Ope rator Name: 24429-9) Esmail Quratula in [facility] ID: [id number] able: RN Notified Lab Interpretation (test Abnormal code = 14944-7) [facility]2022-08-23 11:47:00 Test Item Value Reference Range Interpretation Comments POC glucose (test code = 103 mg/dL 65-99 H Ope rator Name: 78641-0) Esmail Quratula in [facility] ID: [id number] able: RN Notified Lab Interpretation (test Abnormal code = 71349-5) [facility]2022-08-23 11:47:00 Test Item Value Reference Range Interpretation Comments POC glucose (test code = 103 mg/dL 65-99 H Ope rator Name: 10846-6) Esmail Quratula in [facility] ID: [id number] able: RN Notified Lab Interpretation (test Abnormal code = 53422-9) [facility]2022-08-23 11:47:00 Test Item Value Reference Range Interpretation Comments POC glucose (test code = 103 mg/dL 65-99 H Ope rator Name: 08817-0) Esmail Quratula in [facility] ID: [id number] able: RN Notified Lab Interpretation (test Abnormal code = 78793-1) [facility]2022-08-23 11:47:00 Test Item Value Reference Range Interpretation Comments POC glucose (test code = 103 mg/dL 65-99 H Ope rator Name: 52472-3) Esmail Quratula in [facility] ID: [id number] able: RN Notified Lab Interpretation (test Abnormal code = 48929-6) [facility]2022-08-23 11:47:00 Test Item Value Reference Range Interpretation Comments POC glucose (test code = 103 mg/dL 65-99 H Ope rator Name: 34380-4) Esmail Quratula in [facility] ID: [id number] able: RN Notified Lab Interpretation (test Abnormal code = 20782-5) [facility]2022-08-23 11:47:00 Test Item Value Reference Range Interpretation Comments POC glucose (test code = 103 mg/dL 65-99 H Ope rator Name: 57531-9) Esmail Quratula in [facility] ID: [id number] able: RN Notified Lab Interpretation (test Abnormal code = 52416-1) [facility]2022-08-23 11:47:00 Test Item Value Reference Range Interpretation Comments POC glucose (test code = 103 mg/dL 65-99 H Ope rator Name: 17630-3) Esmcarito Quratula in [facility] ID: [id number] able: RN Notified Lab Interpretation (test Abnormal code = 44366-1) [facility]2022-08-23 11:47:00 Test Item Value Reference Range Interpretation Comments POC glucose (test code = 103 mg/dL 65-99 H Ope rator Name: 46793-2) Esmail Quratula in [facility] ID: [id number] able: RN Notified Lab Interpretation (test Abnormal code = 98338-8) [facility]2022-08-23 11:47:00 Test Item Value Reference Range Interpretation Comments POC glucose (test code = 103 mg/dL 65-99 H Ope rator Name: 22304-4) Esmail Quratula in [facility] ID: [id number] able: RN Notified Lab Interpretation (test Abnormal code = 85207-4) [facility]2022-08-23 11:47:00 Test Item Value Reference Range Interpretation Comments POC glucose (test code = 103 mg/dL 65-99 H Ope rator Name: 78553-6) Esmail Quratula in [facility] ID: [id number] able: RN Notified Lab Interpretation (test Abnormal code = 19341-6) [facility]2022-08-23 11:47:00 Test Item Value Reference Range Interpretation Comments POC glucose (test code = 103 mg/dL 65-99 H Ope rator Name: 29727-5) Esmail Quratula in [facility] ID: [id number] able: RN Notified Lab Interpretation (test Abnormal code = 14215-8) [facility]2022-08-23 11:47:00 Test Item Value Reference Range Interpretation Comments POC glucose (test code = 103 mg/dL 65-99 H Ope rator Name: 12701-1) Esmail Quratula in [facility] ID: [id number] able: RN Notified Lab Interpretation (test Abnormal code = 92040-5) [facility]2022-08-23 11:47:00 Test Item Value Reference Range Interpretation Comments POC glucose (test code = 103 mg/dL 65-99 H Ope rator Name: 47701-0) Esmail Quratula in [facility] ID: [id number] able: RN Notified Lab Interpretation (test Abnormal code = 06806-2) [facility]2022-08-23 11:47:00 Test Item Value Reference Range Interpretation Comments POC glucose (test code = 103 mg/dL 65-99 H Ope rator Name: 29309-5) Esmail Quratula in [facility] ID: [id number] able: RN Notified Lab Interpretation (test Abnormal code = 11405-7) [facility]2022-08-23 11:47:00 Test Item Value Reference Range Interpretation Comments POC glucose (test code = 103 mg/dL 65-99 H Ope rator Name: 62641-2) Esmail Quratula in [facility] ID: [id number] able: RN Notified Lab Interpretation (test Abnormal code = 68736-7) [facility] Pre/Post [id number] 20:29:23 Test Item Value Reference Range Interpretation [...] MD (2064) on 03/01/2022 3:29:18 PM [facility] Pre/Post [id number] 20:29:23 Test Item Value Reference Range Interpretation [...] MD (2064) on 03/01/2022 3:29:18 PM [facility] Pre/Post [id number] 20:29:23 Test Item Value Reference Range Interpretation [...] MD (2064) on 03/01/2022 3:29:18 PM [facility] Pre/Post [id number] 20:29:23 Test Item Value Reference Range Interpretation [...] MD (2064) on 03/01/2022 3:29:18 PM [facility] Pre/Post [id number] 20:29:23 Test Item Value Reference Range Interpretation [...] MD (2064) on 03/01/2022 3:29:18 PM [facility] Pre/Post [id number] 20:29:23 Test Item Value Reference Range Interpretation [...] MD (2064) on 03/01/2022 3:29:18 PM [facility] Pre/Post [id number] 20:29:23 Test Item Value Reference Range Interpretation [...] MD (2064) on 03/01/2022 3:29:18 PM [facility] Pre/Post [id number] 20:29:23 Test Item Value Reference Range Interpretation [...] MD (2064) on 03/01/2022 3:29:18 PM [facility] Pre/Post [id number] 20:29:23 Test Item Value Reference Range Interpretation [...] MD (2064) on 03/01/2022 3:29:18 PM [facility] Pre/Post [id number] 20:29:23 Test Item Value Reference Range Interpretation [...] MD (2064) on 03/01/2022 3:29:18 PM [facility] Pre/Post [id number] 20:29:23 Test Item Value Reference Range Interpretation [...] MD (2064) on 03/01/2022 3:29:18 PM [facility] Pre/Post [id number] 20:29:23 Test Item Value Reference Range Interpretation [...] MD (2064) on 03/01/2022 3:29:18 PM [facility] Pre/Post [id number] 20:29:23 Test Item Value Reference Range Interpretation [...] MD (2064) on 03/01/2022 3:29:18 PM [facility] Pre/Post [id number] 20:29:23 Test Item Value Reference Range Interpretation [...] MD (2064) on 03/01/2022 3:29:18 PM [facility] Pre/Post [id number] 20:29:23 Test Item Value Reference Range Interpretation [...] MD (2064) on 03/01/2022 3:29:18 PM [facility] Pre/Post [id number] 20:29:23 Test Item Value Reference Range Interpretation [...] MD (2064) on 03/01/2022 3:29:18 PM [facility] Pre/Post [id number] 20:29:23 Test Item Value Reference Range Interpretation [...] MD (2064) on 03/01/2022 3:29:18 PM [facility] Pre/Post [id number] 20:29:23 Test Item Value Reference Range Interpretation [...] MD (2064) on 03/01/2022 3:29:18 PM [facility] Pre/Post [id number] 20:29:23 Test Item Value Reference Range Interpretation [...] MD (2064) on 03/01/2022 3:29:18 PM [facility] Pre/Post [id number] 20:29:23 Test Item Value Reference Range Interpretation [...] MD (2064) on 03/01/2022 3:29:18 PM [facility] Pre/Post [id number] 20:29:23 Test Item Value Reference Range Interpretation [...] MD (2064) on 03/01/2022 3:29:18 PM [facility] Pre/Post [id number] 20:29:23 Test Item Value Reference Range Interpretation [...] MD (2064) on 03/01/2022 3:29:18 PM [facility] Pre/Post [id number] 20:29:23 Test Item Value Reference Range Interpretation [...] MD (2064) on 03/01/2022 3:29:18 PM [facility] Pre/Post [id number] 20:29:23 Test Item Value Reference Range Interpretation [...] MD (2064) on 03/01/2022 3:29:18 PM [facility] Pre/Post [id number] 20:29:23 Test Item Value Reference Range Interpretation [...] MD (2064) on 03/01/2022 3:29:18 PM [facility] Pre/Post [id number] 20:29:23 Test Item Value Reference Range Interpretation [...] MD (2064) on 03/01/2022 3:29:18 PM [facility] Pre/Post [id number] 20:29:23 Test Item Value Reference Range Interpretation [...] MD (2064) on 03/01/2022 3:29:18 PM [facility] Pre/Post [id number] 20:29:23 Test Item Value Reference Range Interpretation [...] MD (2064) on 03/01/2022 3:29:18 PM [facility] Pre/Post [id number] 20:29:23 Test Item Value Reference Range Interpretation [...] MD (2064) on 03/01/2022 3:29:18 PM [facility] Pre/Post [id number] 20:29:23 Test Item Value Reference Range Interpretation [...] MD (2064) on 03/01/2022 3:29:18 PM [facility] Pre/Post [id number] 20:29:23 Test Item Value Reference Range Interpretation [...] Emery MD (2064) on 03/01/2022 3:29:18 [facility] [Presence] in Respiratory specimen by TENZIN with probe [id number] 18:27:20 Test Item Value Reference Range Interpretation Comments SARS-CoV-2 (COVID-19) RNA Not detected [Presence] in Respiratory specimen by TENZIN with probe detection (test code = 46771-5) Whether patient is employed in a Unknown healthcare setting (test code = 50765-2) Whether the patient has symptoms Unknown related to condition of interest (test code = 10173-6) Whether the patient was Unknown hospitalized for condition of interest (test code = 52836-8) Whether the patient was admitted Unknown to intensive care unit (ICU) for condition of interest (test code = 31133-6) Whether patient resides in a Unknown congregate care setting (test code = 16422-1) status (test code = Unknown 35462-6) Date and time of symptom onset Unknown (test code = 27193-9) [facility] RNA [Presence] in Respiratory specimen by TENZIN with probe [id number] 01:00:31 Test Item Value Reference Range Interpretation Comments SARS-CoV-2 (COVID-19) RNA Not detected [Presence] in Respiratory specimen by TENZIN with probe detection (test code = 93261-0) Whether patient is employed in a Unknown healthcare setting (test code = 13181-9) Whether the patient has symptoms Unknown related to condition of interest (test code = 30947-6) Whether the patient was Unknown hospitalized for condition of interest (test code = 41739-7) Whether the patient was admitted Unknown to intensive care unit (ICU) for condition of interest (test code = 85531-7) Whether patient resides in a Unknown congregate care setting (test code = 00339-2) status (test code = Unknown 34616-2) Date and time of symptom onset Unknown (test code = 82884-0) [facility] + B and SARS CoV + SARS CoV 2 Ag panel, [place], upper respiratory [id number] 10:40:00 Test Item Value Reference Range Interpretation Comments RAPID SARS COV (test code = RAPID negative SARS COV) RAPID FLU A (test code = RAPID FLU negative A) RAPID FLU B (test code = RAPID FLU negative B) [facility] - Serum or [id number] 06:34:00 Test Item Value Reference Range Interpretation [...] = 3.250 cholesterol risk ratio) [facility] [Mass/volume] in [id number] 00:00:00 Test Item Value Reference Range Interpretation Comments Hemoglobin A1c [Mass/volume] in Blood 5.3 % 4.0-6.0 (test code = 23219-2) [facility]] [facility] Serum or [id number] 00:00:00 Test Item Value Reference Range Interpretation Comments Thyrotropin [Units/volume] in 0.44 uIU/mL 0.36-3.74 Serum or Plasma (test code = 3016-3) [facility]
--- NOTE | 2023-06-06 11:40 | ER ---
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 Coronavirus screen: At this time, the client does not indicate any symptoms associated with coronavirus-19. Ebola Screen: No symptoms or risks identified at this time. Initial Sepsis Screen: Does the patient meet any 2 criteria? No. Patient's initial sepsis screen is negative. Does the patient have a suspected source of infection? No. Patient's initial sepsis screen is negative. Risk Assessment: Do you want to hurt yourself or someone else? Patient reports no desire to harm self or others. Onset of symptoms was June 06, 2023. 11:14 Method Of Arrival: Ambulatory 9 11:14 Acuity: MCKENZIE 3 mb9 Historical: - Allergies: 11:16 Imitrex; mb9 - PMHx: 11:16 adhd; Asthma; Bipolar disorder; priapism; spinal stenosis; mb9 - PSHx: 11:16 L5 S1 laminectomy; mb9 - Immunization history:: Adult Immunizations up to date. - Social history:: Smoking status: Patient denies any tobacco usage or history of. Vital Signs: 11:14 BP 120 / 78; Pulse 95; Resp 18; Temp 98; Pulse Ox 100% ; Weight 104.33 kg; Height 5 ft. mb9 11 in. ; 11:14 Body Mass Index 32.08 (104.33 kg, 180.34 cm) mb9 ED Course: 11:04 Patient arrived in ED. rg4 11:07 Baljeet Garsia DO is Attending Physician. ms3 11:15 Triage completed. mb9 11:16 Arm band placed on. mb9 11:39 Minesh Vivas MD is Referral Physician. ms3 Administered Medications: 11:31 CANCELLED (Physician Discretion): phenylephrine 0.5 mg Sub-Q once; Phenylephrine 10 ms3 mg/mL, 1 mL mixed with 9 mL normal saline. Outcome: 11:39 Discharge ordered by ms3 11:55 Patient left the ED. hb Signatures: Joie Higgins, RN RN Abigail Gillette rg4 Baljeet Garsia DO DO ms3 Ayesha Chavarria RN RN mb9
--- NOTE | 2023-06-06 11:40 | EDPHYS ---
Physician Documentation [facility] Name: Francesco Avelar Age: 27 yrs Sex: Male : 1995 Arrival Date: 06/06/2023 Time: 11:03 Bed Treatment Private MD: ED Physician Baljeet Garsia HPI: 06/06 11:32 This 27 yrs old Male presents to ER via Ambulatory with complaints of ms3 Testicular Pain. 11:32 27-year-old male with past medical history of ADHD, asthma, bipolar, priapism, spinal ms3 stenosis presents to the emergency department for priapism that began at 7:15 AM. Patient states his pain is 7/10. Patient denies nausea, vomiting, fevers, chills. Patient denies alleviating or inciting factors. Patient states he took terbutaline and Sudafed prior to arrival without relief of his symptoms. Historical: - Allergies: 11:16 Imitrex; mb9 - PMHx: 11:16 adhd; Asthma; Bipolar disorder; priapism; spinal stenosis; mb9 - PSHx: 11:16 L5 S1 laminectomy; mb9 - Immunization history:: Adult Immunizations up to date. - Social history:: Smoking status: Patient denies any tobacco usage or history of. ROS: 11:32 Constitutional: Negative for fever, and chills. Neck: Negative for injury, pain, and ms3 swelling, Cardiovascular: Negative for chest pain, and palpitations. Respiratory: Negative for shortness of breath, cough, wheezing, and pleuritic chest pain, Abdomen/GI: Negative for abdominal pain, nausea, vomiting, diarrhea, and constipation, 11:32 : Positive for penile pain, 11:32 All other systems are negative, Exam: 11:32 Constitutional: This is a well developed, well nourished patient who is awake, alert, ms3 and in no acute distress. Head/Face: Normocephalic, atraumatic. Chest/axilla: Normal chest wall appearance and motion. Nontender with no deformity. Cardiovascular: Regular rate and rhythm with a normal S1 and S2. No gallops, murmurs, or rubs. Normal PMI, no JVD. No pulse deficits. Respiratory: Lungs have equal breath sounds bilaterally, clear to auscultation and percussion. No rales, rhonchi or wheezes noted. No increased work of breathing, no retractions or nasal flaring. Abdomen/GI: Soft, non-tender, with normal bowel sounds. No distension or tympany. No guarding or rebound. No evidence of tenderness throughout. Skin: Warm, dry with normal turgor. Normal color with no rashes, no lesions, and no evidence of cellulitis. 11:32 : Male external genitalia: tenderness, of the head of penis and shaft of penis is noted, Priapism, Vital Signs: 11:14 BP 120 / 78; Pulse 95; Resp 18; Temp 98; Pulse Ox 100% ; Weight 104.33 kg; Height 5 ft. mb9 11 in. ; 11:14 Body Mass Index 32.08 (104.33 kg, 180.34 cm) mb9 Procedures: 11:32 Performed Priapism management. Patient penile shaft cleansed with chlorhexidine scrub. ms3 A 27-gauge needle was used to insert 350 mcg of phenylephrine and left corpus cavernosum. Pressure was applied at injection site with detumescence.. MDM: 11:32 Differential diagnosis: Priapism. Data reviewed: vital signs, nurses notes, and as a ms3 result, I will discharge patient. Care significantly affected by the following chronic conditions: ADHD, bipolar, asthma, spinal stenosis, priapism. Counseling: I had a detailed discussion with the patient and/or guardian regarding the historical points, exam findings, and any diagnostic results supporting the discharge/admit diagnosis, the need for outpatient follow up, to return to the emergency department if symptoms worsen or persist or if there are any questions or concerns that arise at home. Special discussion: I discussed with the patient/guardian in detail that at this point there is no indication for admission to the hospital. It is understood, however, that if the symptoms persist or worsen the patient needs to return immediately for re-evaluation. ED course: Discussed physical exam findings and detumescence with patient. Patient states he feels relieved. Patient to follow-up Dr. Vivas in 2 to 3 days. Patient understands and agrees with plan. All questions were answered. Return precautions discussed include worsening symptoms, return of priapism, or any other concerns. 11:39 Patient medically screened. ms3 Administered Medications: 11:31 CANCELLED (Physician Discretion): phenylephrine 0.5 mg Sub-Q once; Phenylephrine 10 ms3 mg/mL, 1 mL mixed with 9 mL normal saline. Disposition Summary: 06/06/23 11:39 Discharge Ordered Notes: Location: Home ms3 Condition: Stable ms3 Diagnosis - Priapism, unspecified ms3 Followup: ms3 - With: Minesh Vivas MD - When: 2 - 3 days - Reason: Recheck today's complaints Discharge Instructions: - Discharge Summary Sheet ms3 - Priapism ms3 Forms: - Medication Reconciliation Form ms3 - Thank You Letter ms3 - Antibiotic Education ms3 - Prescription Opioid Use ms3 - Patient Portal Instructions ms3 - Leadership Thank You Letter ms3 Signatures: Baljeet Garsia DO DO ms3 Ayesha Chavarria RN RN mb9 Corrections: (The following items were deleted from the chart) 11:31 11:21 phenylephrine 0.5 mg Sub-Q once; Phenylephrine 10 mg/mL, 1 mL mixed with 9 mL ms3 normal saline. ordered. ms3
[2023-06-06 11:59] VITALS: BP 120/78; TEMP 98; O2SAT 100
== END 2023-06-06 11:55 | disposition home or self-care (01) ==
LOC: ER 11:03
DX: N48.30 Priapism, unspecified (principal); J45.909 Unspecified asthma, uncomplicated; F31.9 Bipolar disorder, unspecified; F90.9 Attention-deficit hyperactivity disorder, unspecified type; Z88.8 Allergy status to other drugs, medicaments and biological substances
CPT/HCPCS: 99281; J2371